=== PATIENT | female | born 1945 | race Caucasian/White ===

== ENCOUNTER → 2020-03-23 14:11 | Outpatient (BNVA) | payer MEDICARE, SELFPAY | PROVIDERS: PCP Internal Medicine; Referring Provider Internal Medicine; Visit Provider Advanced Practice Midwife | DX: R10.2 Pelvic and perineal pain (principal) | CPT/HCPCS: 99212; Q3014 ==

== ENCOUNTER 2020-04-23 08:59 | Emergency (ER) | payer MEDICARE, SELFPAY ==
[2020-04-23 09:22] VITALS: BP 134/72; PULSE 73; RESP 16; TEMP 37; O2SAT 98; BMI 33.0
--- NOTE | 2020-04-23 09:30 | US_ITS ---
EXAMINATION: US VENOUS ULTRASOUND WITH DOPPLER LOWER EXTREMITY, LEFT CLINICAL INFORMATION: Left calf pain COMPARISON: None TECHNIQUE: Ultrasound of the deep veins is performed from the hip to the calf with compression sonography and color and pulse Doppler assessment. Spectral analysis with color-flow imaging is performed. FINDINGS: There is normal venous compression and respiratory variation and augmented flow. The visualized common femoral vein, superficial femoral vein, profunda femoral vein, popliteal vein, and the trifurcation region shows no evidence of deep venous thrombosis. There is no significant popliteal fossa cyst. No popliteal artery aneurysm. If the patient's symptoms persist, followup ultrasound in 5 days 7 days might be of value to exclude proximal propagation from a non-visualized calf vein. US/US venous duplex LE LT IMPRESSION: No acute DVT demonstrated in the left lower extremity.
--- NOTE | 2020-04-23 09:30 | ED_ITS ---
HPI - Extremity Problem General Chief complaint: Extremity Problem Stated complaint: ?blood clot Time Seen by Provider: 04/23/20 09:23 Source: patient Mode of arrival: ambulatory History of Present Illness HPI Narrative: 74-year-old female with a past medical history of hyperbilirubinemia, hypothyroid, hypertension, bipolar, DM, GERD, presenting to ED complaining of left thigh pain since yesterday which progressed to left calf pain today. Reports was sent in by PCP for ultrasound. Denies injury/falls, numbness/tingling, weakness, discoloration, CP/SOB, cough. Denies history of clots, recent travel, LE edema Related Data Home Medications Medication Instructions Recorded Confirmed amlodipine 5 mg tablet 5 mg PO DAILY 03/23/20 atorvastatin 40 mg tablet mg PO 03/23/20 cholecalciferol (vitamin D3) 25 25 mcg PO DAILY 03/23/20 mcg (1,000 unit) tablet divalproex 500 mg tablet,extended mg PO 03/23/20 release 24 hr ferrous fumarate 324 mg (106 mg 324 mg PO DAILY 03/23/20 iron) tablet levothyroxine 100 mcg tablet 100 mcg PO DAILY 03/23/20 loratadine 10 mg tablet 10 mg PO DAILY 03/23/20 lorazepam 1 mg tablet 1 mg PO BEDTIME PRN 03/23/20 meclizine 25 mg tablet 25 mg PO DAILY 03/23/20 metformin 500 mg tablet,extended 500 mg PO BID 03/23/20 release 24 hr oxybutynin chloride 5 mg tablet 5 mg PO BID 03/23/20 pantoprazole 40 mg tablet,delayed 40 mg PO DAILY 03/23/20 release risperidone 1 mg tablet mg PO 03/23/20 atorvastatin 40 mg tablet 40 mg PO DAILY 04/21/20 Previous Rx's Medication Instructions Recorded ascorbic acid (vitamin C) 500 mg 500 mg PO DAILY #90 tab 03/30/20 tablet metoprolol succinate 25 mg 25 mg PO DAILY #90 tab 04/06/20 tablet,extended release 24 hr perphenazine 4 mg tablet See Rx Instructions PO .COMPLEX 30 04/20/20 Days #90 tab clotrimazole-betamethasone 1 1 applic TOPICAL BID 15 Days #15 g 04/21/20 %-0.05 % topical cream Allergies Allergy/AdvReac Type Severity Reaction Status Date / Time amoxicillin [Amoxicillin] Allergy Intermediate SWELLING, Unverified 03/03/20 15:29 rash meclizine [Meclizine] Allergy Intermediate INCREASES Unverified 03/03/20 15:29 DIZZINESS acyclovir Allergy Unknown Unknown Verified 03/23/20 14:20 codeine [CODEINE] Allergy Unknown RASH Unverified 03/03/20 15:29 dicyclomine Allergy Unknown Unknown Verified 03/23/20 14:20 lidocaine [LIDOCAINE] Allergy Unknown UNKNOWN Unverified 03/03/20 15:29 lithium [LITHIUM] Allergy Unknown NEPHROGENIC Unverified 03/03/20 15:29 DIABETES INSIPIDUS metronidazole [METRONIDAZOLE] Allergy Unknown FLU LIKE Unverified 03/03/20 15:29 SYMPTOMS simvastatin [SIMVASTATIN] Allergy Unknown MYALGIAS Unverified 03/03/20 15:29 Sulfa (Sulfonamide Allergy Unknown itching & Verified 01/22/20 00:00 Antibiotics) bruising Review of Systems 2 Review of Systems: Constitutional: No Weight loss, No Fever, No Chills Cardiovascular: No Chest Pain, No SOB, No Dyspnea on Exertion, No Edema, No Palpitations Respiratory: No Cough, No Sputum, No Wheezing, No Dyspnea Gastrointestinal: No Nausea, No Vomiting, No Diarrhea, No Constipation, No Abdominal pain Musculoskeletal: +L calf pain, No Myalgias, No Joint Swelling Skin: No Skin Lesions, No rash Neuro: No Weakness, No Numbness, No Paresthesias Yes all other systems are reviewed and are negative [facility] Past Medical History Attestation statement: The following information was validated with the patient. Source: old records reviewed and nursing notes reviewed Medical History (Updated 04/23/20 @ 10:31 by MICHELE Hedrick) High bilirubin History of hypothyroidism History of vitamin D deficiency HTN (hypertension) with goal to be determined Hx of bipolar disorder Hx of diabetes insipidus Hx of diabetes mellitus Hx of gastroesophageal reflux (GERD) Hx of hyperlipidemia Hx of strabismus Hypothyroidism Rash Surgical History Hx of cataract surgery Hx of dilation and curettage Family History Family History Father History of cerebral hemorrhage Mother History of cerebral hemorrhage Social History Social History Smoking Status: Former smoker Smoked in Last 30 Days: No Use of substances other than those prescribed or required for medical reasons: No Advance Directives: No Advance Directives Information Provided: No Physical Exam Vital Signs: Vital Signs: Last Vital Signs Temp 98.6 F 04/23/20 09:22 Pulse 73 04/23/20 09:22 Resp 16 04/23/20 09:22 BP 134/72 04/23/20 09:22 Pulse Ox 98 04/23/20 09:22 Body Mass Index 33.0 Const: General: cooperative and healthy appearing Orientation/consciousness: patient oriented x3 Limitations: no limitations HENMT: Head: Yes normal to inspection Ears: hearing grossly normal bilaterally General nose exam: Normal external nose present Face and sinus: Yes normal facial exam Eyes: General: appearance normal, both eyes and all related structures EOM: EOMs intact bilaterally Neck: Neck: Yes normal visual inspection Resp: Effort & Inspection: normal respiratory effort Auscultation: clear to auscultation bilaterally Cardio: Rate: regular rate Heart sounds: S1 normal heart sound present and S2 normal heart sound present GI: Inspection: Yes normal to inspection Palpation (GI): Soft to palpation, nontender, no guarding and not rigid Skin: Rashes: no rashes Wounds: no wounds Neuro: General: patient oriented x3 Gait exam (Neuro): Normal gait present Extrem: Other: + left calf pain. No LE edema. No discoloration or streaking. NV intact General: Yes normal to inspection Course Course Course Narrative: -venous duplex without acute DVT Imaging results discussed with patient including close follow-up with PCP and worrisome signs and symptoms. Patient verbalized understanding feel safe for discharge MDM - Extremity (Nontraumatic) MDM Narrative Medical decision making narrative: 74-year-old female with a past medical history of hyperbilirubinemia, hypothyroid, hypertension, bipolar, DM, GERD, presenting to ED complaining of left thigh pain since yesterday which progressed to left calf pain today. On exam VSS, NAD, check pain elicited on exam. Lungs CTA. Concern for possible DVT vs MSK pain. Low concern for PE. No appreciable infection Plan: Venous duplex ultrasound Discharge Plan Discharge Clinical Impression: Pain of left calf Patient Disposition: Home, Self-Care Instructions: Leg Pain (ED) Additional Instructions: Your ultrasound was negative for DVT Call your doctor, and follow-up with them Take Tylenol /Motrin at home for your pain You may ice and elevate her leg If symptoms persist or worsen, you develop numbness, tingling, discoloration of her leg return to the ED Prescriptions: No Action ascorbic acid (vitamin C) [Vitamin C] 500 mg tablet 500 mg PO DAILY Qty: 90 RF: 3 metoprolol succinate 25 mg tablet extended release 24 hr 25 mg PO DAILY Qty: 90 RF: 1 perphenazine 4 mg tablet See Rx Instructions PO .COMPLEX 30 Days Qty: 90 RF: 0 clotrimazole-betamethasone 1-0.05 % cream 1 applic topical BID 15 Days Qty: 15 RF: 0 Referrals: Brown Dickson MD [Primary Care Provider] - 2 days
== END 2020-04-23 11:03 | disposition home or self-care (01) ==
PROVIDERS: Emergency Provider Emergency Medicine; PCP Internal Medicine
DX: M79.605 Pain in left leg (principal); R60.0 Localized edema; Z79.899 Other long term (current) drug therapy
CPT/HCPCS: 93971; 99284

== ENCOUNTER 2020-06-07 09:53 | Outpatient (REF) | payer MEDICARE, SELFPAY ==
[2020-06-07 11:09] LABS: Estimated Average Glucose 146 mg/dL; Hemoglobin A1c % 6.7 %
[2020-06-07 11:11] LABS: Alanine Aminotransferase 9 U/L (0-31); Albumin Level 3.9 g/dL (3.5-5.0); Alkaline Phosphatase 73 U/L (39-117); Anion Gap 12 (12-20); Aspartate Amino Transferase 15 U/L (5-31); Bilirubin Direct 0.2 mg/dL (0.0-0.5); Bilirubin Total 0.5 mg/dL (0.0-1.0); Blood Urea Nitrogen 14 mg/dL (9-16); Calcium 9.2 mg/dL (8.4-10.2); Carbon Dioxide 28 mmol/L (22-29); Chloride 104 mmol/L (96-108); Estimated Glomerular Filt Rate 59; Glucose Fasting 130 mg/dL (60-99); Potassium 4.3 mmol/l (3.3-5.1); Sodium 140 mmol/L (135-145); Total Protein 6.7 g/dL (6.5-8.0)
[2020-06-07 11:34] LABS: TSH reflex Free T4 2.21 mIU/mL (0.32-4.0)
== END 2020-06-07 09:54 | disposition home or self-care (01) ==
LOC: HO.LAB 09:53
PROVIDERS: PCP Internal Medicine; Visit Provider Nurse Practitioner Family
DX: E03.9 Hypothyroidism, unspecified (principal); R17 Unspecified jaundice
CPT/HCPCS: 80048; 80076; 83036; 84443

== ENCOUNTER 2020-08-23 15:06 | Inpatient (IN) | payer MEDICARE, SELFPAY ==
--- NOTE | ~2020-08-23 | CT_ITS ---
EXAMINATION: CT ANGIOGRAM OF THE CHEST WITH AND WITHOUT CONTRAST (CT PULMONARY ANGIOGRAM FOR PE) CLINICAL INFORMATION: Reason for Exam pt c cough c hypoxia ? pna vs pe COMPARISON: CTA chest 04/24/2018, chest radiographs 08/23/2020. TECHNIQUE: Prior to contrast administration, noncontrast localization images were obtained. Subsequently, multidetector volumetric imaging was performed from the thoracic inlet to below the diaphragms following the administration of 71 mL Omnipaque 350 intravenous contrast. Sagittal, coronal, and MIP oblique sagittal reformatted images were obtained on the CT workstation, uploaded to PACS, and reviewed. This CT examination was performed using dose optimization techniques as appropriate, variously including the following: *Automated exposure control *Adjustment of mA and/or kV according to patient size (this includes techniques or standardized protocols for targeted exams where dose is matched to indication/reason for exam; i.e. extremities or head) *Use of iterative reconstruction technique Total exam dose-length product 439 mGy-cm FINDINGS: QUALITY OF STUDY/CONTRAST BOLUS: Satisfactory. PULMONARY ARTERIES: There is some respiratory motion artifact. No central or segmental pulmonary emboli. THORACIC AORTA: No aneurysm or dissection. LUNG: There is respiratory motion artifact. There is bilateral dependent atelectasis. The central airways are clear and there is no endobronchial lesion or bronchiectasis. No airspace consolidation or patchy groundglass opacity. Pleural-based nodule superior segment left lower lobe approximately 1.2 x 1.1 x 1.6 cm in length has some associated central coarse calcification and is without significant change in size since 2018 consistent with a benign nodule. Remeasurement prior CT 2018 is 1.2 x 1.0 x 1.7 cm. PLEURA: No pleural effusion. No pneumothorax. MEDIASTINUM: Heart of limits of normal size. Trace pericardial effusion, 5 mm posteriorly. No evidence of septal bowing or right heart strain. CHEST WALL/AXILLA: No axillary or internal mammary lymphadenopathy. OSSEOUS STRUCTURES: No acute or suspicious osseous abnormality. UPPER ABDOMEN: Unremarkable. No reflux of contrast into the hepatic veins to suggest elevated right heart pressures. Parapelvic cyst again suggested interpolar left kidney similar to 2018. CT/CT angio chest PE protocol IMPRESSION: 1. No pulmonary embolism. No thoracic aortic enlargement or dissection. 2. Pleural-based nodule posterior left lower lobe 1.2 x 1.1 x 1.6 cm with some central coarse calcification. No significant change in size since CT 2018, consistent with benign nodule. VTE: negative
--- NOTE | ~2020-08-23 | XR_ITS ---
EXAMINATION: XR CHEST CLINICAL INFORMATION: Chest pain. COMPARISON: 02/28/2019 chest radiograph. TECHNIQUE: Frontal view of the chest was obtained. FINDINGS: Mild linear markings are seen at the right lung base. The left lung is clear. The heart and mediastinal structures are unremarkable. XR/XR chest 1V IMPRESSION: Mild linear markings at the right lung base could represent mild atelectasis or scarring. Mild bronchiectasis cannot be excluded. A definitive infiltrate is not seen.
[2020-08-23 15:25] VITALS: BP 117/54; BP 154/74; PULSE 71; PULSE 77; RESP 20; TEMP 36.8; O2SAT 92; O2SAT 97; BMI 32.4
--- NOTE | 2020-08-23 15:44 | ECG_ITS ---
Test Reason : CHEST PAIN Blood Pressure : / mmHG Vent. Rate : 073 BPM Atrial Rate : 073 BPM P-R Int : 166 ms QRS Dur : 076 ms QT Int : 380 ms P-R-T Axes : 046 014 014 degrees QTc Int : 418 ms Normal sinus rhythm Normal ECG When compared with ECG of 28-FEB-2019 05:47, No significant change was found Referred By: Generic ED Physician Electronically Signed By:Hadley Aguilera
[2020-08-23 16:00] LABS: Basophils Percent Auto 0.1 % (0-2); Eosinophils Percent Auto 0.1 % (0-4); Hematocrit 36.3 % (37-47); Imm Gran Abs Auto 0.14 X10*3/uL (0.00-0.03); Lymphocytes Absolute Auto 1.9 X10*3/uL (1.2-4.9); Lymphocytes Percent Auto 13.6 % (20-40); MANUAL DIFF FLAG SCAN; Mean Corpuscular HGB Conc 33.1 g/dl (31.0-35.0); Mean Corpuscular Hemoglobin 33.2 pg (27.0-33.0); Mean Corpuscular Volume 100.6 fL (80-98); Mean Platelet Volume 8.9 fL (9.4-12.3); Monocytes Absolute Auto 1.8 X10*3/uL (0.1-1.2); Monocytes Percent Auto 12.8 % (2-11); Neutrophils Absolute Auto 9.9 X10*3/uL (2.0-8.3); Neutrophils Percent Auto 72.4 % (45-73); Platelet Count 189 X10*3/uL (160-400); Red Blood Count 3.61 X10*6/uL (4.20-5.50); SCAN SMEAR FLAG 1; White Blood Count 13.7 X10*3/uL (4.8-10.8)
[2020-08-23 16:21] LABS: SLIDE REVIEW VERIFIED
[2020-08-23 16:27] LABS: Anion Gap 14 (12-20); Blood Urea Nitrogen 10 mg/dL (9-16); Calcium 8.6 mg/dL (8.4-10.2); Carbon Dioxide 24 mmol/L (22-29); Chloride 108 mmol/L (96-108); Estimated Glomerular Filt Rate > 60; Glucose Random 127 mg/dL (60-115); Potassium 3.6 mmol/L (3.3-5.1); Sodium 142 mmol/L (135-145)
[2020-08-23 16:32] LABS: Troponin-I High Sensitivity < 3.5 ng/L (<3.5-17.0)
--- NOTE | 2020-08-23 16:35 | ED.CHESTPAIN ---
HPI - Chest Pain General Chief Complaint: Chest Pain <Frannie Flowers MD - Last Filed: 08/23/20 19:37> Stated Complaint: CP RESOLVED, UPPER BACK PAIN <Frannie Flowers MD - Last Filed: 08/23/20 19:37> Time Seen by Provider: 08/23/20 16:35 <Frannie Flowers MD - Last Filed: 08/23/20 19:37> Source: patient and EMS <Frannie Flowers MD - Last Filed: 08/23/20 19:37> Mode of arrival: EMS <Frannie Flowers MD - Last Filed: 08/23/20 19:37> Limitations: no limitations <Frannie Flowers MD - Last Filed: 08/23/20 19:37> History of Present Illness HPI narrative: 75-year-old female brought in by ambulance for chest pain and upper neck pain, patient lives in apartment with her , started to have chest pain and upper neck pain and bilateral shoulder pain (not only left shoulder pain as stated by nursing triage), patient took Tylenol last night, has been put a fan in front of her bed and patient felt better with care and family coming to her (patient stated was out in her room last night and heat was high and patient has no control of the heat temperature at the apartment), patient now declined any symptoms feels normal, no chest pain, no shortness of breath, no trauma to the neck. Patient stated about 3 years ago had cardiac catheterization and was unremarkable patient needed no intervention then (official report is not available). <Frannie Flowers MD - Last Filed: 08/23/20 19:37> Related Data Home Medications: Home Medications Medication Instructions Recorded Confirmed atorvastatin 40 mg tablet 40 mg PO BEDTIME tab 03/23/20 08/23/20 cholecalciferol (vitamin D3) 25 25 mcg PO DAILY 03/23/20 08/23/20 mcg (1,000 unit) tablet levothyroxine 100 mcg tablet 100 mcg PO DAILY 03/23/20 08/23/20 lancing device with lancets kit #1 ea 05/11/20 08/02/20 divalproex 1,000 mg PO BEDTIME 08/23/20 08/23/20 divalproex 500 mg PO DAILY 08/23/20 08/23/20 lisinopril 2.5 mg PO DAILY 08/23/20 08/23/20 Previous Rx's Medication Instructions Recorded ascorbic acid (vitamin C) 500 mg 500 mg PO DAILY #90 tab 03/30/20 tablet metoprolol succinate 25 mg 25 mg PO DAILY #90 tab 04/06/20 tablet,extended release 24 hr pantoprazole 40 mg tablet,delayed 40 mg PO DAILY 30 Days #30 tab 04/25/20 release lancets 33 gauge #100 ea 05/11/20 oxybutynin chloride 5 mg tablet 5 mg PO BID #180 tab 06/28/20 ferrous fumarate 324 mg (106 mg 324 mg PO DAILY #100 tab 07/04/20 iron) tablet nystatin 100,000 unit/gram topical 1 appl TOPICAL BID 30 Days #15 g 07/22/20 powder risperidone 1 mg tablet 1 mg PO BID #60 tab 08/04/20 perphenazine 4 mg tablet 4 mg PO BID #90 tab 08/18/20 amlodipine 5 mg tablet 5 mg PO DAILY #90 tab 08/20/20 metformin 500 mg tablet,extended 500 mg PO BID #180 tab 08/23/20 release 24 hr <Frannie Flowers MD - Last Filed: 08/23/20 19:37> Allergies/Adverse Reactions: Allergies Allergy/AdvReac Type Severity Reaction Status Date / Time amoxicillin [Amoxicillin] Allergy Intermediate SWELLING, Verified 08/23/20 15:25 rash Sulfa (Sulfonamide Allergy Intermediate itching & Verified 08/23/20 15:25 Antibiotics) bruising codeine [CODEINE] Allergy Unknown RASH Verified 08/23/20 15:25 dicyclomine Allergy Unknown Unknown Verified 08/23/20 15:25 lidocaine [LIDOCAINE] Allergy Unknown UNKNOWN Verified 08/23/20 15:25 lithium [LITHIUM] AdvReac Severe NEPHROGENIC Verified 08/23/20 15:25 DIABETES INSIPIDUS meclizine [Meclizine] AdvReac Intermediate INCREASES Verified 08/23/20 15:25 DIZZINESS simvastatin [SIMVASTATIN] AdvReac Intermediate MYALGIAS Verified 08/23/20 15:25 metronidazole [METRONIDAZOLE] AdvReac Mild FLU LIKE Verified 08/23/20 15:25 SYMPTOMS acyclovir AdvReac Unknown Unknown Verified 08/23/20 15:25 <Frannie Flowers MD - Last Filed: 08/23/20 19:37> Review of Systems Review of Systems: All other systems are reviewed and are negative Constitutional: Reports as per HPI and Reports no additional constitutional complaints Eyes: Reports as per HPI and Reports no additional eye complaints Reports system reviewed and no additional complaints, except as documented Cardiovascular: Reports as per HPI and Reports no additional cardiovascular complaints Respiratory: Reports as per HPI and Reports no additional respiratory complaints Gastrointestinal: Reports as per HPI and Reports no additional gastrointestinal complaints Genitourinary: Reports no additional female genitourinary complaints Musculoskeletal: Reports no additional musculoskeletal complaints Skin/Breast: Reports system reviewed and no additional complaints, except as docu Psychiatric: Reports no additional psychiatric complaints Endocrine: Reports no additional endocrine complaints Hematologic/Lymphatic: Reports no additional hematologic/lymphatic complaints Allergic/Immunologic: Reports no additional allergic/immunologic complaints Reports system reviewed and no additional complaints, except as documented and Reports Abnormal speech present <Frannie Flowers MD - Last Filed: 08/23/20 19:37> [facility] Past Medical History Medical History: Medical History Acquired hypothyroidism Allergic rhinitis Anemia Benign essential hypertension Bipolar disorder Diabetes mellitus GERD without esophagitis High bilirubin History of vitamin D deficiency Hx of diabetes insipidus Hx of strabismus Hypertension Intertrigo Obesity (BMI 30-39.9) Pain of left lower extremity Pure hypercholesterolemia <Frannie Flowers MD - Last Filed: 08/23/20 19:37> Surgical History: Surgical History History of eye surgery History of left breast biopsy Hx of cataract surgery (~07/2017) Hx of dilation and curettage <Frannie Flowers MD - Last Filed: 08/23/20 19:37> Family History Family History: Family History Father History of cerebral hemorrhage Mother History of cerebral hemorrhage <Frannie Flowers MD - Last Filed: 08/23/20 19:37> Social History Social History: Social History Alcohol intake: never Smoking Status: Former smoker Use of substances other than those prescribed or required for medical reasons: No Advance Directives: Yes Advance Directives on File: Yes Advance Directives Date on File: 08/24/20 <Frannie Flowers MD - Last Filed: 08/23/20 19:37> Physical Exam Vital Signs: Vital Signs: Last Vital Signs Temp 97.5 F 08/24/20 16:24 Pulse 59 08/24/20 16:24 Resp 19 08/24/20 16:24 BP 77/43 L 08/24/20 16:24 Pulse Ox 95 08/24/20 16:24 Body Mass Index 32.4 Vital signs have been reviewed as appeared to be correct. Blood pressure normal. Heart rate normal. Respiration rate normal. Temperature normal. Oxygen saturation normal. <Frannie Flowers MD - Last Filed: 08/23/20 19:37> Vital Signs: Last Vital Signs Temp 97.5 F 08/24/20 16:24 Pulse 59 08/24/20 16:24 Resp 19 08/24/20 16:24 BP 77/43 L 08/24/20 16:24 Pulse Ox 95 08/24/20 16:24 Body Mass Index 32.4 <Mk Cordero MD - Last Filed: 08/24/20 09:28> Vital Signs: Last Vital Signs Temp 97.5 F 08/24/20 16:24 Pulse 59 08/24/20 16:24 Resp 19 08/24/20 16:24 BP 77/43 L 08/24/20 16:24 Pulse Ox 95 08/24/20 16:24 Body Mass Index 32.4 <MICHELE Tong - Last Filed: 08/24/20 09:36> Vital Signs: Last Vital Signs Temp 97.5 F 08/24/20 16:24 Pulse 59 08/24/20 16:24 Resp 19 08/24/20 16:24 BP 77/43 L 08/24/20 16:24 Pulse Ox 95 08/24/20 16:24 Body Mass Index 32.4 <Patrick Barnhart MD - Last Filed: 08/24/20 16:42> Appearance: Alert. Oriented X3. No acute distress. Head: Normal external exam. Normocephalic. Atraumatic. No Love signs noted. No raccoon eyes noted Eyes: PERRLA. EOMI. Conjunctiva and sclera normal. Eyelids normal. ENT: TM's Normal. Pharynx normal. Uvula midline. Moist mucous membranes. No trismus noted. No drooling noted. No muffled voice noted. Neck: Normal inspection. Neck supple. FROM. No adenopathy. Thyroid Normal. No meningeal signs. No neck mass noted. CVS: Normal heart rate and rhythm. Heart sound normal. No murmurs noted. Pulses normal throughout. Respiratory: No respiratory distress. Painless inspiration. Breath sounds normal. No wheezes/rales/rhonchi noted. Chest nontender. No accessory muscle usage noted or decreased air movement noted. Abdomen: Soft and nontender. Bowel sounds normal in all 4 quadrants. No distention noted. No organomegaly noted. No visible injury noted. Back: No CVA tenderness. Full range of motion noted. Skin: Skin warm and dry. Normal skin color. Normal skin turgor. No rashes/lesions/lacerations noted. Extremities: No lower extremity edema. Extremities exhibit normal range of motion. Extremities nontender. Neuro: Oriented X 3. No motor deficit. No sensory deficit. Reflexes normal. <Frannie Flowers MD - Last Filed: 08/23/20 19:37> Course Course Course Narrative: Assessment and plan. 75-year-old female came in from home for chest pain that started since last night more than 12 hours ago by now, now pain is resolved, patient had previous cardiac catheterization 3 years ago was unremarkable according to patient history, patient also while in the emergency department had unremarkable EKG, and negative high sensitive troponin. Workup is significant for leukocytosis with unremarkable chest x-ray, patient still unable to give a UA will check her urine, patient otherwise has stable vital signs. Will discharge the patient after checking UA. <Frannie Flowers MD - Last Filed: 08/23/20 19:37> Patient now with low blood pressure no obvious reason, will give fluid bolus. In terms of hypoxia she had CXR that showed atelectasis, and CT chest negative for PE, old pleural nodule. At this moment Blood pressure is low Patients rectal temp is 99.6 will culture and fluid bolus and hold off on abx for now. At this time sepsis is being entertained although patient appears well, awake and alert, lungs with basilar rales, CV RRR, abd nontender, neuro at baseline <Patrick Barnhart MD - Last Filed: 08/24/20 16:42> Reevaluation(s) Reevaluation #1: Daughter is requesting placement as family cannot provide care for the patient at home. <Frannie Flowers MD - Last Filed: 08/23/20 19:37> Time: 19:37 <Frannie Flowers MD - Last Filed: 08/23/20 19:37> MDM - Chest Pain Medical Records Data Attestation: I reviewed the patient's medical records. <Frannie Flowers MD - Last Filed: 08/23/20 19:37> Lab Data Result diagrams: : 08/24/20 11:06 08/24/20 11:06 <Frannie Flowers MD - Last Filed: 08/23/20 19:37> Labs: Lab Results 08/23/20 08/23/20 08/23/20 Range/Units 15:53 15:53 15:53 WBC 13.7 H (4.8-10.8) X10*3/uL RBC 3.61 L (4.20-5.50) X10*6/uL Hgb 12.0 (12.0-16.0) g/dl Hct 36.3 L (37-47) % MCV 100.6 H (80-98) fL MCH 33.2 H (27.0-33.0) pg MCHC 33.1 (31.0-35.0) g/dl RDW 13.0 (11.0-16.0) % Plt Count 189 (160-400) X10*3/uL MPV 8.9 L (9.4-12.3) fL Immature Gran % (Auto) 1.0 H (0.0-0.4) % Neut % (Auto) 72.4 (45-73) % Lymph % (Auto) 13.6 L (20-40) % [place] % (Auto) 12.8 H (2-11) % Eos % (Auto) 0.1 (0-4) % Baso % (Auto) 0.1 (0-2) % Lymph # (Auto) 1.9 (1.2-4.9) X10*3/uL [place] # (Auto) 1.8 H (0.1-1.2) X10*3/uL Eos # (Auto) 0.0 (0.0-0.4) X10*3/uL Baso # (Auto) 0.0 (0.0-0.2) X10*3/uL Abs Immat Gran (auto) 0.14 H (0.00-0.03) X10*3/uL Absolute Neuts (auto) 9.9 H (2.0-8.3) X10*3/uL Absolute Nucleated RBC 0.000 (0.0-0.012) X10*3/uL Nucleated RBC % (auto) 0.0 (0.0-0.2) /100WBC Smear Tech's Comments VERIFIED Hold Blue Top SEE NOTE Sodium 142 (135-145) mmol/L Potassium 3.6 (3.3-5.1) mmol/L Chloride 108 (96-108) mmol/L Carbon Dioxide 24 (22-29) mmol/L Anion Gap 14 (12-20) BUN 10 (9-16) mg/dL Creatinine 0.77 (0.5-1.4) mg/dL Estim Creat Clear Calc 74.0 Estimated GFR > 60 POC Glucose (60-115) mg/dL Random Glucose 127 H (60-115) mg/dL Calcium 8.6 D (8.4-10.2) mg/dL Troponin I High Sens (<3.5-17.0) ng/L B-Natriuretic Peptide (<100) pg/mL Urine Color Urine Appearance Urine pH (5.0-8.0) Ur Specific [place] (1.005-1.025) Urine Protein (NEG-TRACE) MG/DL Urine Glucose (UA) (NEG) MG/DL Urine Ketones (NEG) MG/DL Urine Blood (NEG) Urine Nitrite (NEG) Ur Leukocyte Esterase (NEG) Urine RBC (0) /HPF Urine WBC (0-4) /HPF Ur Squamous Epith Cells /LPF Urine Bacteria /LPF Coronavirus (PCR) (Negative) COVID-19 (ANGEL) (Negative) COVID-19 Clin Com Influenza Type A (PCR) (Negative) Influenza Type B (PCR) (Negative) RSV RNA Qual (PCR) (Negative) 08/23/20 08/23/20 08/24/20 Range/Units 15:53 19:43 00:10 WBC (4.8-10.8) X10*3/uL RBC (4.20-5.50) X10*6/uL Hgb (12.0-16.0) g/dl Hct (37-47) % MCV (80-98) fL MCH (27.0-33.0) pg MCHC (31.0-35.0) g/dl RDW (11.0-16.0) % Plt Count (160-400) X10*3/uL MPV (9.4-12.3) fL Immature Gran % (Auto) (0.0-0.4) % Neut % (Auto) (45-73) % Lymph % (Auto) (20-40) % [place] % (Auto) (2-11) % Eos % (Auto) (0-4) % Baso % (Auto) (0-2) % Lymph # (Auto) (1.2-4.9) X10*3/uL [place] # (Auto) (0.1-1.2) X10*3/uL Eos # (Auto) (0.0-0.4) X10*3/uL Baso # (Auto) (0.0-0.2) X10*3/uL Abs Immat Gran (auto) (0.00-0.03) X10*3/uL Absolute Neuts (auto) (2.0-8.3) X10*3/uL Absolute Nucleated RBC (0.0-0.012) X10*3/uL Nucleated RBC % (auto) (0.0-0.2) /100WBC Smear Tech's Comments Hold Blue Top Sodium (135-145) mmol/L Potassium (3.3-5.1) mmol/L Chloride (96-108) mmol/L Carbon Dioxide (22-29) mmol/L Anion Gap (12-20) BUN (9-16) mg/dL Creatinine (0.5-1.4) mg/dL Estim Creat Clear Calc Estimated GFR POC Glucose 122 H (60-115) mg/dL Random Glucose (60-115) mg/dL Calcium (8.4-10.2) mg/dL Troponin I High Sens < 3.5 (<3.5-17.0) ng/L B-Natriuretic Peptide (<100) pg/mL Urine Color YELLOW Urine Appearance CLEAR Urine pH 7.0 (5.0-8.0) Ur Specific [place] 1.010 (1.005-1.025) Urine Protein NEG (NEG-TRACE) MG/DL Urine Glucose (UA) NEG (NEG) MG/DL Urine Ketones NEG (NEG) MG/DL Urine Blood TRACE (NEG) Urine Nitrite NEG (NEG) Ur Leukocyte Esterase NEG (NEG) Urine RBC 0-2 (0) /HPF Urine WBC 0 (0-4) /HPF Ur Squamous Epith Cells 1+ /LPF Urine Bacteria TRACE /LPF Coronavirus (PCR) (Negative) COVID-19 (ANGEL) (Negative) COVID-19 Clin Com Influenza Type A (PCR) (Negative) Influenza Type B (PCR) (Negative) RSV RNA Qual (PCR) (Negative) 08/24/20 08/24/20 08/24/20 Range/Units 00:17 11:06 11:06 WBC 11.3 H (4.8-10.8) X10*3/uL RBC 3.74 L (4.20-5.50) X10*6/uL Hgb 12.3 (12.0-16.0) g/dl Hct 38.7 (37-47) % MCV 103.5 H (80-98) fL MCH 32.9 (27.0-33.0) pg MCHC 31.8 (31.0-35.0) g/dl RDW 13.2 (11.0-16.0) % Plt Count 180 (160-400) X10*3/uL MPV 8.7 L (9.4-12.3) fL Immature Gran % (Auto) 1.1 H (0.0-0.4) % Neut % (Auto) 71.1 (45-73) % Lymph % (Auto) 18.2 L (20-40) % [place] % (Auto) 9.0 (2-11) % Eos % (Auto) 0.4 (0-4) % Baso % (Auto) 0.2 (0-2) % Lymph # (Auto) 2.1 (1.2-4.9) X10*3/uL [place] # (Auto) 1.0 (0.1-1.2) X10*3/uL Eos # (Auto) 0.0 (0.0-0.4) X10*3/uL Baso # (Auto) 0.0 (0.0-0.2) X10*3/uL Abs Immat Gran (auto) 0.12 H (0.00-0.03) X10*3/uL Absolute Neuts (auto) 8.1 (2.0-8.3) X10*3/uL Absolute Nucleated RBC 0.000 (0.0-0.012) X10*3/uL Nucleated RBC % (auto) 0.0 (0.0-0.2) /100WBC Smear Tech's Comments Hold Blue Top Sodium 139 (135-145) mmol/L Potassium 3.9 (3.3-5.1) mmol/L Chloride 104 (96-108) mmol/L Carbon Dioxide 27 (22-29) mmol/L Anion Gap 12 (12-20) BUN 11 (9-16) mg/dL Creatinine 0.81 (0.5-1.4) mg/dL Estim Creat Clear Calc 70.3 Estimated GFR > 60 POC Glucose (60-115) mg/dL Random Glucose 135 H (60-115) mg/dL Calcium 8.6 (8.4-10.2) mg/dL Troponin I High Sens (<3.5-17.0) ng/L B-Natriuretic Peptide (<100) pg/mL Urine Color Urine Appearance Urine pH (5.0-8.0) Ur Specific [place] (1.005-1.025) Urine Protein (NEG-TRACE) MG/DL Urine Glucose (UA) (NEG) MG/DL Urine Ketones (NEG) MG/DL Urine Blood (NEG) Urine Nitrite (NEG) Ur Leukocyte Esterase (NEG) Urine RBC (0) /HPF Urine WBC (0-4) /HPF Ur Squamous Epith Cells /LPF Urine Bacteria /LPF Coronavirus (PCR) (Negative) COVID-19 (ANGEL) Negative (Negative) COVID-19 Clin Com See Note Influenza Type A (PCR) (Negative) Influenza Type B (PCR) (Negative) RSV RNA Qual (PCR) (Negative) 08/24/20 08/24/20 Range/Units 12:34 15:25 WBC (4.8-10.8) X10*3/uL RBC (4.20-5.50) X10*6/uL Hgb (12.0-16.0) g/dl Hct (37-47) % MCV (80-98) fL MCH (27.0-33.0) pg MCHC (31.0-35.0) g/dl RDW (11.0-16.0) % Plt Count (160-400) X10*3/uL MPV (9.4-12.3) fL Immature Gran % (Auto) (0.0-0.4) % Neut % (Auto) (45-73) % Lymph % (Auto) (20-40) % [place] % (Auto) (2-11) % Eos % (Auto) (0-4) % Baso % (Auto) (0-2) % Lymph # (Auto) (1.2-4.9) X10*3/uL [place] # (Auto) (0.1-1.2) X10*3/uL Eos # (Auto) (0.0-0.4) X10*3/uL Baso # (Auto) (0.0-0.2) X10*3/uL Abs Immat Gran (auto) (0.00-0.03) X10*3/uL Absolute Neuts (auto) (2.0-8.3) X10*3/uL Absolute Nucleated RBC (0.0-0.012) X10*3/uL Nucleated RBC % (auto) (0.0-0.2) /100WBC Smear Tech's Comments Hold Blue Top Sodium (135-145) mmol/L Potassium (3.3-5.1) mmol/L Chloride (96-108) mmol/L Carbon Dioxide (22-29) mmol/L Anion Gap (12-20) BUN (9-16) mg/dL Creatinine (0.5-1.4) mg/dL Estim Creat Clear Calc Estimated GFR POC Glucose (60-115) mg/dL Random Glucose (60-115) mg/dL Calcium (8.4-10.2) mg/dL Troponin I High Sens < 3.5 (<3.5-17.0) ng/L B-Natriuretic Peptide 71 (<100) pg/mL Urine Color Urine Appearance Urine pH (5.0-8.0) Ur Specific [place] (1.005-1.025) Urine Protein (NEG-TRACE) MG/DL Urine Glucose (UA) (NEG) MG/DL Urine Ketones (NEG) MG/DL Urine Blood (NEG) Urine Nitrite (NEG) Ur Leukocyte Esterase (NEG) Urine RBC (0) /HPF Urine WBC (0-4) /HPF Ur Squamous Epith Cells /LPF Urine Bacteria /LPF Coronavirus (PCR) NEGATIVE (Negative) COVID-19 (ANGEL) (Negative) COVID-19 Clin Com Influenza Type A (PCR) NEGATIVE (Negative) Influenza Type B (PCR) NEGATIVE (Negative) RSV RNA Qual (PCR) NEGATIVE (Negative) <Frannie Flowers MD - Last Filed: 08/23/20 19:37> Lab Results 08/23/20 08/23/20 08/23/20 Range/Units 15:53 15:53 15:53 WBC 13.7 H (4.8-10.8) X10*3/uL RBC 3.61 L (4.20-5.50) X10*6/uL Hgb 12.0 (12.0-16.0) g/dl Hct 36.3 L (37-47) % MCV 100.6 H (80-98) fL MCH 33.2 H (27.0-33.0) pg MCHC 33.1 (31.0-35.0) g/dl RDW 13.0 (11.0-16.0) % Plt Count 189 (160-400) X10*3/uL MPV 8.9 L (9.4-12.3) fL Immature Gran % (Auto) 1.0 H (0.0-0.4) % Neut % (Auto) 72.4 (45-73) % Lymph % (Auto) 13.6 L (20-40) % [place] % (Auto) 12.8 H (2-11) % Eos % (Auto) 0.1 (0-4) % Baso % (Auto) 0.1 (0-2) % Lymph # (Auto) 1.9 (1.2-4.9) X10*3/uL [place] # (Auto) 1.8 H (0.1-1.2) X10*3/uL Eos # (Auto) 0.0 (0.0-0.4) X10*3/uL Baso # (Auto) 0.0 (0.0-0.2) X10*3/uL Abs Immat Gran (auto) 0.14 H (0.00-0.03) X10*3/uL Absolute Neuts (auto) 9.9 H (2.0-8.3) X10*3/uL Absolute Nucleated RBC 0.000 (0.0-0.012) X10*3/uL Nucleated RBC % (auto) 0.0 (0.0-0.2) /100WBC Smear Tech's Comments VERIFIED Hold Blue Top SEE NOTE Sodium 142 (135-145) mmol/L Potassium 3.6 (3.3-5.1) mmol/L Chloride 108 (96-108) mmol/L Carbon Dioxide 24 (22-29) mmol/L Anion Gap 14 (12-20) BUN 10 (9-16) mg/dL Creatinine 0.77 (0.5-1.4) mg/dL Estim Creat Clear Calc 74.0 Estimated GFR > 60 POC Glucose (60-115) mg/dL Random Glucose 127 H (60-115) mg/dL Calcium 8.6 D (8.4-10.2) mg/dL Troponin I High Sens (<3.5-17.0) ng/L B-Natriuretic Peptide (<100) pg/mL Urine Color Urine Appearance Urine pH (5.0-8.0) Ur Specific [place] (1.005-1.025) Urine Protein (NEG-TRACE) MG/DL Urine Glucose (UA) (NEG) MG/DL Urine Ketones (NEG) MG/DL Urine Blood (NEG) Urine Nitrite (NEG) Ur Leukocyte Esterase (NEG) Urine RBC (0) /HPF Urine WBC (0-4) /HPF Ur Squamous Epith Cells /LPF Urine Bacteria /LPF Coronavirus (PCR) (Negative) COVID-19 (ANGEL) (Negative) COVID-19 Clin Com Influenza Type A (PCR) (Negative) Influenza Type B (PCR) (Negative) RSV RNA Qual (PCR) (Negative) 08/23/20 08/23/20 08/24/20 Range/Units 15:53 19:43 00:10 WBC (4.8-10.8) X10*3/uL RBC (4.20-5.50) X10*6/uL Hgb (12.0-16.0) g/dl Hct (37-47) % MCV (80-98) fL MCH (27.0-33.0) pg MCHC (31.0-35.0) g/dl RDW (11.0-16.0) % Plt Count (160-400) X10*3/uL MPV (9.4-12.3) fL Immature Gran % (Auto) (0.0-0.4) % Neut % (Auto) (45-73) % Lymph % (Auto) (20-40) % [place] % (Auto) (2-11) % Eos % (Auto) (0-4) % Baso % (Auto) (0-2) % Lymph # (Auto) (1.2-4.9) X10*3/uL [place] # (Auto) (0.1-1.2) X10*3/uL Eos # (Auto) (0.0-0.4) X10*3/uL Baso # (Auto) (0.0-0.2) X10*3/uL Abs Immat Gran (auto) (0.00-0.03) X10*3/uL Absolute Neuts (auto) (2.0-8.3) X10*3/uL Absolute Nucleated RBC (0.0-0.012) X10*3/uL Nucleated RBC % (auto) (0.0-0.2) /100WBC Smear Tech's Comments Hold Blue Top Sodium (135-145) mmol/L Potassium (3.3-5.1) mmol/L Chloride (96-108) mmol/L Carbon Dioxide (22-29) mmol/L Anion Gap (12-20) BUN (9-16) mg/dL Creatinine (0.5-1.4) mg/dL Estim Creat Clear Calc Estimated GFR POC Glucose 122 H (60-115) mg/dL Random Glucose (60-115) mg/dL Calcium (8.4-10.2) mg/dL Troponin I High Sens < 3.5 (<3.5-17.0) ng/L B-Natriuretic Peptide (<100) pg/mL Urine Color YELLOW Urine Appearance CLEAR Urine pH 7.0 (5.0-8.0) Ur Specific [place] 1.010 (1.005-1.025) Urine Protein NEG (NEG-TRACE) MG/DL Urine Glucose (UA) NEG (NEG) MG/DL Urine Ketones NEG (NEG) MG/DL Urine Blood TRACE (NEG) Urine Nitrite NEG (NEG) Ur Leukocyte Esterase NEG (NEG) Urine RBC 0-2 (0) /HPF Urine WBC 0 (0-4) /HPF Ur Squamous Epith Cells 1+ /LPF Urine Bacteria TRACE /LPF Coronavirus (PCR) (Negative) COVID-19 (ANGEL) (Negative) COVID-19 Clin Com Influenza Type A (PCR) (Negative) Influenza Type B (PCR) (Negative) RSV RNA Qual (PCR) (Negative) 08/24/20 08/24/20 08/24/20 Range/Units 00:17 11:06 11:06 WBC 11.3 H (4.8-10.8) X10*3/uL RBC 3.74 L (4.20-5.50) X10*6/uL Hgb 12.3 (12.0-16.0) g/dl Hct 38.7 (37-47) % MCV 103.5 H (80-98) fL MCH 32.9 (27.0-33.0) pg MCHC 31.8 (31.0-35.0) g/dl RDW 13.2 (11.0-16.0) % Plt Count 180 (160-400) X10*3/uL MPV 8.7 L (9.4-12.3) fL Immature Gran % (Auto) 1.1 H (0.0-0.4) % Neut % (Auto) 71.1 (45-73) % Lymph % (Auto) 18.2 L (20-40) % [place] % (Auto) 9.0 (2-11) % Eos % (Auto) 0.4 (0-4) % Baso % (Auto) 0.2 (0-2) % Lymph # (Auto) 2.1 (1.2-4.9) X10*3/uL [place] # (Auto) 1.0 (0.1-1.2) X10*3/uL Eos # (Auto) 0.0 (0.0-0.4) X10*3/uL Baso # (Auto) 0.0 (0.0-0.2) X10*3/uL Abs Immat Gran (auto) 0.12 H (0.00-0.03) X10*3/uL Absolute Neuts (auto) 8.1 (2.0-8.3) X10*3/uL Absolute Nucleated RBC 0.000 (0.0-0.012) X10*3/uL Nucleated RBC % (auto) 0.0 (0.0-0.2) /100WBC Smear Tech's Comments Hold Blue Top Sodium 139 (135-145) mmol/L Potassium 3.9 (3.3-5.1) mmol/L Chloride 104 (96-108) mmol/L Carbon Dioxide 27 (22-29) mmol/L Anion Gap 12 (12-20) BUN 11 (9-16) mg/dL Creatinine 0.81 (0.5-1.4) mg/dL Estim Creat Clear Calc 70.3 Estimated GFR > 60 POC Glucose (60-115) mg/dL Random Glucose 135 H (60-115) mg/dL Calcium 8.6 (8.4-10.2) mg/dL Troponin I High Sens (<3.5-17.0) ng/L B-Natriuretic Peptide (<100) pg/mL Urine Color Urine Appearance Urine pH (5.0-8.0) Ur Specific [place] (1.005-1.025) Urine Protein (NEG-TRACE) MG/DL Urine Glucose (UA) (NEG) MG/DL Urine Ketones (NEG) MG/DL Urine Blood (NEG) Urine Nitrite (NEG) Ur Leukocyte Esterase (NEG) Urine RBC (0) /HPF Urine WBC (0-4) /HPF Ur Squamous Epith Cells /LPF Urine Bacteria /LPF Coronavirus (PCR) (Negative) COVID-19 (ANGEL) Negative (Negative) COVID-19 Clin Com See Note Influenza Type A (PCR) (Negative) Influenza Type B (PCR) (Negative) RSV RNA Qual (PCR) (Negative) 08/24/20 08/24/20 Range/Units 12:34 15:25 WBC (4.8-10.8) X10*3/uL RBC (4.20-5.50) X10*6/uL Hgb (12.0-16.0) g/dl Hct (37-47) % MCV (80-98) fL MCH (27.0-33.0) pg MCHC (31.0-35.0) g/dl RDW (11.0-16.0) % Plt Count (160-400) X10*3/uL MPV (9.4-12.3) fL Immature Gran % (Auto) (0.0-0.4) % Neut % (Auto) (45-73) % Lymph % (Auto) (20-40) % [place] % (Auto) (2-11) % Eos % (Auto) (0-4) % Baso % (Auto) (0-2) % Lymph # (Auto) (1.2-4.9) X10*3/uL [place] # (Auto) (0.1-1.2) X10*3/uL Eos # (Auto) (0.0-0.4) X10*3/uL Baso # (Auto) (0.0-0.2) X10*3/uL Abs Immat Gran (auto) (0.00-0.03) X10*3/uL Absolute Neuts (auto) (2.0-8.3) X10*3/uL Absolute Nucleated RBC (0.0-0.012) X10*3/uL Nucleated RBC % (auto) (0.0-0.2) /100WBC Smear Tech's Comments Hold Blue Top Sodium (135-145) mmol/L Potassium (3.3-5.1) mmol/L Chloride (96-108) mmol/L Carbon Dioxide (22-29) mmol/L Anion Gap (12-20) BUN (9-16) mg/dL Creatinine (0.5-1.4) mg/dL Estim Creat Clear Calc Estimated GFR POC Glucose (60-115) mg/dL Random Glucose (60-115) mg/dL Calcium (8.4-10.2) mg/dL Troponin I High Sens < 3.5 (<3.5-17.0) ng/L B-Natriuretic Peptide 71 (<100) pg/mL Urine Color Urine Appearance Urine pH (5.0-8.0) Ur Specific [place] (1.005-1.025) Urine Protein (NEG-TRACE) MG/DL Urine Glucose (UA) (NEG) MG/DL Urine Ketones (NEG) MG/DL Urine Blood (NEG) Urine Nitrite (NEG) Ur Leukocyte Esterase (NEG) Urine RBC (0) /HPF Urine WBC (0-4) /HPF Ur Squamous Epith Cells /LPF Urine Bacteria /LPF Coronavirus (PCR) NEGATIVE (Negative) COVID-19 (ANGEL) (Negative) COVID-19 Clin Com Influenza Type A (PCR) NEGATIVE (Negative) Influenza Type B (PCR) NEGATIVE (Negative) RSV RNA Qual (PCR) NEGATIVE (Negative) <Mk Cordero MD - Last Filed: 08/24/20 09:28> Lab Results 08/23/20 08/23/20 08/23/20 Range/Units 15:53 15:53 15:53 WBC 13.7 H (4.8-10.8) X10*3/uL RBC 3.61 L (4.20-5.50) X10*6/uL Hgb 12.0 (12.0-16.0) g/dl Hct 36.3 L (37-47) % MCV 100.6 H (80-98) fL MCH 33.2 H (27.0-33.0) pg MCHC 33.1 (31.0-35.0) g/dl RDW 13.0 (11.0-16.0) % Plt Count 189 (160-400) X10*3/uL MPV 8.9 L (9.4-12.3) fL Immature Gran % (Auto) 1.0 H (0.0-0.4) % Neut % (Auto) 72.4 (45-73) % Lymph % (Auto) 13.6 L (20-40) % [place] % (Auto) 12.8 H (2-11) % Eos % (Auto) 0.1 (0-4) % Baso % (Auto) 0.1 (0-2) % Lymph # (Auto) 1.9 (1.2-4.9) X10*3/uL [place] # (Auto) 1.8 H (0.1-1.2) X10*3/uL Eos # (Auto) 0.0 (0.0-0.4) X10*3/uL Baso # (Auto) 0.0 (0.0-0.2) X10*3/uL Abs Immat Gran (auto) 0.14 H (0.00-0.03) X10*3/uL Absolute Neuts (auto) 9.9 H (2.0-8.3) X10*3/uL Absolute Nucleated RBC 0.000 (0.0-0.012) X10*3/uL Nucleated RBC % (auto) 0.0 (0.0-0.2) /100WBC Smear Tech's Comments VERIFIED Hold Blue Top SEE NOTE Sodium 142 (135-145) mmol/L Potassium 3.6 (3.3-5.1) mmol/L Chloride 108 (96-108) mmol/L Carbon Dioxide 24 (22-29) mmol/L Anion Gap 14 (12-20) BUN 10 (9-16) mg/dL Creatinine 0.77 (0.5-1.4) mg/dL Estim Creat Clear Calc 74.0 Estimated GFR > 60 POC Glucose (60-115) mg/dL Random Glucose 127 H (60-115) mg/dL Calcium 8.6 D (8.4-10.2) mg/dL Troponin I High Sens (<3.5-17.0) ng/L B-Natriuretic Peptide (<100) pg/mL Urine Color Urine Appearance Urine pH (5.0-8.0) Ur Specific [place] (1.005-1.025) Urine Protein (NEG-TRACE) MG/DL Urine Glucose (UA) (NEG) MG/DL Urine Ketones (NEG) MG/DL Urine Blood (NEG) Urine Nitrite (NEG) Ur Leukocyte Esterase (NEG) Urine RBC (0) /HPF Urine WBC (0-4) /HPF Ur Squamous Epith Cells /LPF Urine Bacteria /LPF Coronavirus (PCR) (Negative) COVID-19 (ANGEL) (Negative) COVID-19 Clin Com Influenza Type A (PCR) (Negative) Influenza Type B (PCR) (Negative) RSV RNA Qual (PCR) (Negative) 08/23/20 08/23/20 08/24/20 Range/Units 15:53 19:43 00:10 WBC (4.8-10.8) X10*3/uL RBC (4.20-5.50) X10*6/uL Hgb (12.0-16.0) g/dl Hct (37-47) % MCV (80-98) fL MCH (27.0-33.0) pg MCHC (31.0-35.0) g/dl RDW (11.0-16.0) % Plt Count (160-400) X10*3/uL MPV (9.4-12.3) fL Immature Gran % (Auto) (0.0-0.4) % Neut % (Auto) (45-73) % Lymph % (Auto) (20-40) % [place] % (Auto) (2-11) % Eos % (Auto) (0-4) % Baso % (Auto) (0-2) % Lymph # (Auto) (1.2-4.9) X10*3/uL [place] # (Auto) (0.1-1.2) X10*3/uL Eos # (Auto) (0.0-0.4) X10*3/uL Baso # (Auto) (0.0-0.2) X10*3/uL Abs Immat Gran (auto) (0.00-0.03) X10*3/uL Absolute Neuts (auto) (2.0-8.3) X10*3/uL Absolute Nucleated RBC (0.0-0.012) X10*3/uL Nucleated RBC % (auto) (0.0-0.2) /100WBC Smear Tech's Comments Hold Blue Top Sodium (135-145) mmol/L Potassium (3.3-5.1) mmol/L Chloride (96-108) mmol/L Carbon Dioxide (22-29) mmol/L Anion Gap (12-20) BUN (9-16) mg/dL Creatinine (0.5-1.4) mg/dL Estim Creat Clear Calc Estimated GFR POC Glucose 122 H (60-115) mg/dL Random Glucose (60-115) mg/dL Calcium (8.4-10.2) mg/dL Troponin I High Sens < 3.5 (<3.5-17.0) ng/L B-Natriuretic Peptide (<100) pg/mL Urine Color YELLOW Urine Appearance CLEAR Urine pH 7.0 (5.0-8.0) Ur Specific [place] 1.010 (1.005-1.025) Urine Protein NEG (NEG-TRACE) MG/DL Urine Glucose (UA) NEG (NEG) MG/DL Urine Ketones NEG (NEG) MG/DL Urine Blood TRACE (NEG) Urine Nitrite NEG (NEG) Ur Leukocyte Esterase NEG (NEG) Urine RBC 0-2 (0) /HPF Urine WBC 0 (0-4) /HPF Ur Squamous Epith Cells 1+ /LPF Urine Bacteria TRACE /LPF Coronavirus (PCR) (Negative) COVID-19 (ANGEL) (Negative) COVID-19 Clin Com Influenza Type A (PCR) (Negative) Influenza Type B (PCR) (Negative) RSV RNA Qual (PCR) (Negative) 08/24/20 08/24/20 08/24/20 Range/Units 00:17 11:06 11:06 WBC 11.3 H (4.8-10.8) X10*3/uL RBC 3.74 L (4.20-5.50) X10*6/uL Hgb 12.3 (12.0-16.0) g/dl Hct 38.7 (37-47) % MCV 103.5 H (80-98) fL MCH 32.9 (27.0-33.0) pg MCHC 31.8 (31.0-35.0) g/dl RDW 13.2 (11.0-16.0) % Plt Count 180 (160-400) X10*3/uL MPV 8.7 L (9.4-12.3) fL Immature Gran % (Auto) 1.1 H (0.0-0.4) % Neut % (Auto) 71.1 (45-73) % Lymph % (Auto) 18.2 L (20-40) % [place] % (Auto) 9.0 (2-11) % Eos % (Auto) 0.4 (0-4) % Baso % (Auto) 0.2 (0-2) % Lymph # (Auto) 2.1 (1.2-4.9) X10*3/uL [place] # (Auto) 1.0 (0.1-1.2) X10*3/uL Eos # (Auto) 0.0 (0.0-0.4) X10*3/uL Baso # (Auto) 0.0 (0.0-0.2) X10*3/uL Abs Immat Gran (auto) 0.12 H (0.00-0.03) X10*3/uL Absolute Neuts (auto) 8.1 (2.0-8.3) X10*3/uL Absolute Nucleated RBC 0.000 (0.0-0.012) X10*3/uL Nucleated RBC % (auto) 0.0 (0.0-0.2) /100WBC Smear Tech's Comments Hold Blue Top Sodium 139 (135-145) mmol/L Potassium 3.9 (3.3-5.1) mmol/L Chloride 104 (96-108) mmol/L Carbon Dioxide 27 (22-29) mmol/L Anion Gap 12 (12-20) BUN 11 (9-16) mg/dL Creatinine 0.81 (0.5-1.4) mg/dL Estim Creat Clear Calc 70.3 Estimated GFR > 60 POC Glucose (60-115) mg/dL Random Glucose 135 H (60-115) mg/dL Calcium 8.6 (8.4-10.2) mg/dL Troponin I High Sens (<3.5-17.0) ng/L B-Natriuretic Peptide (<100) pg/mL Urine Color Urine Appearance Urine pH (5.0-8.0) Ur Specific [place] (1.005-1.025) Urine Protein (NEG-TRACE) MG/DL Urine Glucose (UA) (NEG) MG/DL Urine Ketones (NEG) MG/DL Urine Blood (NEG) Urine Nitrite (NEG) Ur Leukocyte Esterase (NEG) Urine RBC (0) /HPF Urine WBC (0-4) /HPF Ur Squamous Epith Cells /LPF Urine Bacteria /LPF Coronavirus (PCR) (Negative) COVID-19 (ANGEL) Negative (Negative) COVID-19 Clin Com See Note Influenza Type A (PCR) (Negative) Influenza Type B (PCR) (Negative) RSV RNA Qual (PCR) (Negative) 08/24/20 08/24/20 Range/Units 12:34 15:25 WBC (4.8-10.8) X10*3/uL RBC (4.20-5.50) X10*6/uL Hgb (12.0-16.0) g/dl Hct (37-47) % MCV (80-98) fL MCH (27.0-33.0) pg MCHC (31.0-35.0) g/dl RDW (11.0-16.0) % Plt Count (160-400) X10*3/uL MPV (9.4-12.3) fL Immature Gran % (Auto) (0.0-0.4) % Neut % (Auto) (45-73) % Lymph % (Auto) (20-40) % [place] % (Auto) (2-11) % Eos % (Auto) (0-4) % Baso % (Auto) (0-2) % Lymph # (Auto) (1.2-4.9) X10*3/uL [place] # (Auto) (0.1-1.2) X10*3/uL Eos # (Auto) (0.0-0.4) X10*3/uL Baso # (Auto) (0.0-0.2) X10*3/uL Abs Immat Gran (auto) (0.00-0.03) X10*3/uL Absolute Neuts (auto) (2.0-8.3) X10*3/uL Absolute Nucleated RBC (0.0-0.012) X10*3/uL Nucleated RBC % (auto) (0.0-0.2) /100WBC Smear Tech's Comments Hold Blue Top Sodium (135-145) mmol/L Potassium (3.3-5.1) mmol/L Chloride (96-108) mmol/L Carbon Dioxide (22-29) mmol/L Anion Gap (12-20) BUN (9-16) mg/dL Creatinine (0.5-1.4) mg/dL Estim Creat Clear Calc Estimated GFR POC Glucose (60-115) mg/dL Random Glucose (60-115) mg/dL Calcium (8.4-10.2) mg/dL Troponin I High Sens < 3.5 (<3.5-17.0) ng/L B-Natriuretic Peptide 71 (<100) pg/mL Urine Color Urine Appearance Urine pH (5.0-8.0) Ur Specific [place] (1.005-1.025) Urine Protein (NEG-TRACE) MG/DL Urine Glucose (UA) (NEG) MG/DL Urine Ketones (NEG) MG/DL Urine Blood (NEG) Urine Nitrite (NEG) Ur Leukocyte Esterase (NEG) Urine RBC (0) /HPF Urine WBC (0-4) /HPF Ur Squamous Epith Cells /LPF Urine Bacteria /LPF Coronavirus (PCR) NEGATIVE (Negative) COVID-19 (ANGEL) (Negative) COVID-19 Clin Com Influenza Type A (PCR) NEGATIVE (Negative) Influenza Type B (PCR) NEGATIVE (Negative) RSV RNA Qual (PCR) NEGATIVE (Negative) <MICHELE Tong - Last Filed: 08/24/20 09:36> Lab Results 08/23/20 08/23/20 08/23/20 Range/Units 15:53 15:53 15:53 WBC 13.7 H (4.8-10.8) X10*3/uL RBC 3.61 L (4.20-5.50) X10*6/uL Hgb 12.0 (12.0-16.0) g/dl Hct 36.3 L (37-47) % MCV 100.6 H (80-98) fL MCH 33.2 H (27.0-33.0) pg MCHC 33.1 (31.0-35.0) g/dl RDW 13.0 (11.0-16.0) % Plt Count 189 (160-400) X10*3/uL MPV 8.9 L (9.4-12.3) fL Immature Gran % (Auto) 1.0 H (0.0-0.4) % Neut % (Auto) 72.4 (45-73) % Lymph % (Auto) 13.6 L (20-40) % [place] % (Auto) 12.8 H (2-11) % Eos % (Auto) 0.1 (0-4) % Baso % (Auto) 0.1 (0-2) % Lymph # (Auto) 1.9 (1.2-4.9) X10*3/uL [place] # (Auto) 1.8 H (0.1-1.2) X10*3/uL Eos # (Auto) 0.0 (0.0-0.4) X10*3/uL Baso # (Auto) 0.0 (0.0-0.2) X10*3/uL Abs Immat Gran (auto) 0.14 H (0.00-0.03) X10*3/uL Absolute Neuts (auto) 9.9 H (2.0-8.3) X10*3/uL Absolute Nucleated RBC 0.000 (0.0-0.012) X10*3/uL Nucleated RBC % (auto) 0.0 (0.0-0.2) /100WBC Smear Tech's Comments VERIFIED Hold Blue Top SEE NOTE Sodium 142 (135-145) mmol/L Potassium 3.6 (3.3-5.1) mmol/L Chloride 108 (96-108) mmol/L Carbon Dioxide 24 (22-29) mmol/L Anion Gap 14 (12-20) BUN 10 (9-16) mg/dL Creatinine 0.77 (0.5-1.4) mg/dL Estim Creat Clear Calc 74.0 Estimated GFR > 60 POC Glucose (60-115) mg/dL Random Glucose 127 H (60-115) mg/dL Calcium 8.6 D (8.4-10.2) mg/dL Troponin I High Sens (<3.5-17.0) ng/L B-Natriuretic Peptide (<100) pg/mL Urine Color Urine Appearance Urine pH (5.0-8.0) Ur Specific [place] (1.005-1.025) Urine Protein (NEG-TRACE) MG/DL Urine Glucose (UA) (NEG) MG/DL Urine Ketones (NEG) MG/DL Urine Blood (NEG) Urine Nitrite (NEG) Ur Leukocyte Esterase (NEG) Urine RBC (0) /HPF Urine WBC (0-4) /HPF Ur Squamous Epith Cells /LPF Urine Bacteria /LPF Coronavirus (PCR) (Negative) COVID-19 (ANGEL) (Negative) COVID-19 Clin Com Influenza Type A (PCR) (Negative) Influenza Type B (PCR) (Negative) RSV RNA Qual (PCR) (Negative) 08/23/20 08/23/20 08/24/20 Range/Units 15:53 19:43 00:10 WBC (4.8-10.8) X10*3/uL RBC (4.20-5.50) X10*6/uL Hgb (12.0-16.0) g/dl Hct (37-47) % MCV (80-98) fL MCH (27.0-33.0) pg MCHC (31.0-35.0) g/dl RDW (11.0-16.0) % Plt Count (160-400) X10*3/uL MPV (9.4-12.3) fL Immature Gran % (Auto) (0.0-0.4) % Neut % (Auto) (45-73) % Lymph % (Auto) (20-40) % [place] % (Auto) (2-11) % Eos % (Auto) (0-4) % Baso % (Auto) (0-2) % Lymph # (Auto) (1.2-4.9) X10*3/uL [place] # (Auto) (0.1-1.2) X10*3/uL Eos # (Auto) (0.0-0.4) X10*3/uL Baso # (Auto) (0.0-0.2) X10*3/uL Abs Immat Gran (auto) (0.00-0.03) X10*3/uL Absolute Neuts (auto) (2.0-8.3) X10*3/uL Absolute Nucleated RBC (0.0-0.012) X10*3/uL Nucleated RBC % (auto) (0.0-0.2) /100WBC Smear Tech's Comments Hold Blue Top Sodium (135-145) mmol/L Potassium (3.3-5.1) mmol/L Chloride (96-108) mmol/L Carbon Dioxide (22-29) mmol/L Anion Gap (12-20) BUN (9-16) mg/dL Creatinine (0.5-1.4) mg/dL Estim Creat Clear Calc Estimated GFR POC Glucose 122 H (60-115) mg/dL Random Glucose (60-115) mg/dL Calcium (8.4-10.2) mg/dL Troponin I High Sens < 3.5 (<3.5-17.0) ng/L B-Natriuretic Peptide (<100) pg/mL Urine Color YELLOW Urine Appearance CLEAR Urine pH 7.0 (5.0-8.0) Ur Specific [place] 1.010 (1.005-1.025) Urine Protein NEG (NEG-TRACE) MG/DL Urine Glucose (UA) NEG (NEG) MG/DL Urine Ketones NEG (NEG) MG/DL Urine Blood TRACE (NEG) Urine Nitrite NEG (NEG) Ur Leukocyte Esterase NEG (NEG) Urine RBC 0-2 (0) /HPF Urine WBC 0 (0-4) /HPF Ur Squamous Epith Cells 1+ /LPF Urine Bacteria TRACE /LPF Coronavirus (PCR) (Negative) COVID-19 (ANGEL) (Negative) COVID-19 Clin Com Influenza Type A (PCR) (Negative) Influenza Type B (PCR) (Negative) RSV RNA Qual (PCR) (Negative) 08/24/20 08/24/20 08/24/20 Range/Units 00:17 11:06 11:06 WBC 11.3 H (4.8-10.8) X10*3/uL RBC 3.74 L (4.20-5.50) X10*6/uL Hgb 12.3 (12.0-16.0) g/dl Hct 38.7 (37-47) % MCV 103.5 H (80-98) fL MCH 32.9 (27.0-33.0) pg MCHC 31.8 (31.0-35.0) g/dl RDW 13.2 (11.0-16.0) % Plt Count 180 (160-400) X10*3/uL MPV 8.7 L (9.4-12.3) fL Immature Gran % (Auto) 1.1 H (0.0-0.4) % Neut % (Auto) 71.1 (45-73) % Lymph % (Auto) 18.2 L (20-40) % [place] % (Auto) 9.0 (2-11) % Eos % (Auto) 0.4 (0-4) % Baso % (Auto) 0.2 (0-2) % Lymph # (Auto) 2.1 (1.2-4.9) X10*3/uL [place] # (Auto) 1.0 (0.1-1.2) X10*3/uL Eos # (Auto) 0.0 (0.0-0.4) X10*3/uL Baso # (Auto) 0.0 (0.0-0.2) X10*3/uL Abs Immat Gran (auto) 0.12 H (0.00-0.03) X10*3/uL Absolute Neuts (auto) 8.1 (2.0-8.3) X10*3/uL Absolute Nucleated RBC 0.000 (0.0-0.012) X10*3/uL Nucleated RBC % (auto) 0.0 (0.0-0.2) /100WBC Smear Tech's Comments Hold Blue Top Sodium 139 (135-145) mmol/L Potassium 3.9 (3.3-5.1) mmol/L Chloride 104 (96-108) mmol/L Carbon Dioxide 27 (22-29) mmol/L Anion Gap 12 (12-20) BUN 11 (9-16) mg/dL Creatinine 0.81 (0.5-1.4) mg/dL Estim Creat Clear Calc 70.3 Estimated GFR > 60 POC Glucose (60-115) mg/dL Random Glucose 135 H (60-115) mg/dL Calcium 8.6 (8.4-10.2) mg/dL Troponin I High Sens (<3.5-17.0) ng/L B-Natriuretic Peptide (<100) pg/mL Urine Color Urine Appearance Urine pH (5.0-8.0) Ur Specific [place] (1.005-1.025) Urine Protein (NEG-TRACE) MG/DL Urine Glucose (UA) (NEG) MG/DL Urine Ketones (NEG) MG/DL Urine Blood (NEG) Urine Nitrite (NEG) Ur Leukocyte Esterase (NEG) Urine RBC (0) /HPF Urine WBC (0-4) /HPF Ur Squamous Epith Cells /LPF Urine Bacteria /LPF Coronavirus (PCR) (Negative) COVID-19 (ANGEL) Negative (Negative) COVID-19 Clin Com See Note Influenza Type A (PCR) (Negative) Influenza Type B (PCR) (Negative) RSV RNA Qual (PCR) (Negative) 08/24/20 08/24/20 Range/Units 12:34 15:25 WBC (4.8-10.8) X10*3/uL RBC (4.20-5.50) X10*6/uL Hgb (12.0-16.0) g/dl Hct (37-47) % MCV (80-98) fL MCH (27.0-33.0) pg MCHC (31.0-35.0) g/dl RDW (11.0-16.0) % Plt Count (160-400) X10*3/uL MPV (9.4-12.3) fL Immature Gran % (Auto) (0.0-0.4) % Neut % (Auto) (45-73) % Lymph % (Auto) (20-40) % [place] % (Auto) (2-11) % Eos % (Auto) (0-4) % Baso % (Auto) (0-2) % Lymph # (Auto) (1.2-4.9) X10*3/uL [place] # (Auto) (0.1-1.2) X10*3/uL Eos # (Auto) (0.0-0.4) X10*3/uL Baso # (Auto) (0.0-0.2) X10*3/uL Abs Immat Gran (auto) (0.00-0.03) X10*3/uL Absolute Neuts (auto) (2.0-8.3) X10*3/uL Absolute Nucleated RBC (0.0-0.012) X10*3/uL Nucleated RBC % (auto) (0.0-0.2) /100WBC Smear Tech's Comments Hold Blue Top Sodium (135-145) mmol/L Potassium (3.3-5.1) mmol/L Chloride (96-108) mmol/L Carbon Dioxide (22-29) mmol/L Anion Gap (12-20) BUN (9-16) mg/dL Creatinine (0.5-1.4) mg/dL Estim Creat Clear Calc Estimated GFR POC Glucose (60-115) mg/dL Random Glucose (60-115) mg/dL Calcium (8.4-10.2) mg/dL Troponin I High Sens < 3.5 (<3.5-17.0) ng/L B-Natriuretic Peptide 71 (<100) pg/mL Urine Color Urine Appearance Urine pH (5.0-8.0) Ur Specific [place] (1.005-1.025) Urine Protein (NEG-TRACE) MG/DL Urine Glucose (UA) (NEG) MG/DL Urine Ketones (NEG) MG/DL Urine Blood (NEG) Urine Nitrite (NEG) Ur Leukocyte Esterase (NEG) Urine RBC (0) /HPF Urine WBC (0-4) /HPF Ur Squamous Epith Cells /LPF Urine Bacteria /LPF Coronavirus (PCR) NEGATIVE (Negative) COVID-19 (ANGEL) (Negative) COVID-19 Clin Com Influenza Type A (PCR) NEGATIVE (Negative) Influenza Type B (PCR) NEGATIVE (Negative) RSV RNA Qual (PCR) NEGATIVE (Negative) <Patrick Barnhart MD - Last Filed: 08/24/20 16:42> Imaging Data Chest x-ray: Radiologist's impression: Mild linear markings at the right lung base could represent mild atelectasis or scarring. Mild bronchiectasis cannot be excluded. A definitive infiltrate is not seen. <Frannie Flowers MD - Last Filed: 08/23/20 19:37> ECG Data ECG #1: Interpretation: Normal sinus rhythm at 73 beats per minutes, normal intervals, nonspecific flattening T-wave in V3, V6. <Frannie Flowers MD - Last Filed: 08/23/20 19:37> Discharge Plan Discharge Clinical Impression: Chest pain, non-cardiac Leukocytosis Qualifiers: Leukocytosis type: unspecified Qualified Code(s): D72.829 - Elevated white blood cell count, unspecified <Frannie Flowers MD - Last Filed: 08/23/20 19:37> Instructions: Chest Pain (ED) <Frannie Flowers MD - Last Filed: 08/23/20 19:37> Prescriptions: No Action ascorbic acid (vitamin C) [Vitamin C] 500 mg tablet 500 mg PO DAILY Qty: 90 RF: 3 metoprolol succinate 25 mg tablet extended release 24 hr 25 mg PO DAILY Qty: 90 RF: 1 (DME) lancets 33 gauge misc See Rx Instructions .ROUTE .MEDSUPPLY Qty: 100 RF: 0 (DME) lancing device with lancets [TYFFONuch Delica Lanc Device] Kit See Rx Instructions .ROUTE .MEDSUPPLY Qty: 1 RF: 0 oxybutynin chloride 5 mg tablet 5 mg PO BID Qty: 180 RF: 1 ferrous fumarate [Ferrocite] 324 mg (106 mg iron) tablet 324 mg PO DAILY Qty: 100 RF: 2 risperidone 1 mg tablet 1 mg PO BID Qty: 60 RF: 0 perphenazine 4 mg tablet 4 mg PO BID Qty: 90 RF: 0 amlodipine 5 mg tablet 5 mg PO DAILY Qty: 90 RF: 1 metformin 500 mg tablet extended release 24 hr 500 mg PO BID Qty: 180 RF: 1 divalproex 500 mg tablet extended release 24 hr 500 mg PO DAILY RF: 0 divalproex 500 mg tablet extended release 24 hr 1,000 mg PO BEDTIME RF: 0 lisinopril 2.5 mg tablet 2.5 mg PO DAILY RF: 0 pantoprazole 40 mg tablet,delayed release (DR/EC) 40 mg PO DAILY 30 Days Qty: 30 RF: 3 nystatin 100,000 unit/gram powder 1 appl topical BID 30 Days Qty: 15 RF: 1 levothyroxine 100 mcg tablet 100 mcg PO DAILY RF: 0 atorvastatin 40 mg tablet 40 mg PO BEDTIME RF: 0 cholecalciferol (vitamin D3) 25 mcg (1,000 unit) tablet 25 mcg PO DAILY RF: 0 <Frannie Flowers MD - Last Filed: 08/23/20 19:37> Referrals: Brown Dickson MD [Primary Care Provider] - 2 days <Frannie Flowers MD - Last Filed: 08/23/20 19:37>
--- NOTE | 2020-08-23 16:50 | PC.NURSE ---
PATIENT'S DAUGHTER CALLS AT THIS TIME FOR UPDATE. SHILPA SMITH STATES SHE IS UNABLE TO CALL AT THIS TIME. THIS MUSIC CATALOGUER TAKES DOWN PATIENT'S DAUGHTER'S PHONE NUMBER AND INFORMS DAUGHTER OF SHILPA SMITH'S STATED INTENTION TO CALL THEM BACK [facility] [phone]
[2020-08-23 18:00] VITALS: BP 117/65; PULSE 72; RESP 18; TEMP 36.6; O2SAT 93
[2020-08-23 19:42] VITALS: BP 134/68; PULSE 81; RESP 18; TEMP 36.7; O2SAT 93
--- NOTE | 2020-08-23 19:44 | PC.NURSE ---
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
[2020-08-23 19:54] LABS: Glucose Urine UA NEG (NEG); Leukocyte Esterase Urine NEG (NEG); Nitrite Urine NEG (NEG); Urine Blood TRACE (NEG); Urine Ketones NEG (NEG); Urine Protein NEG (NEG-TRACE)
[2020-08-23 19:55] LABS: Appearance Urine CLEAR; Color Urine YELLOW
[2020-08-23 19:59] LABS: Bacteria Urine TRACE /LPF; RBC Urine 0-2 /HPF (0); Squamous Epithelial Cell Urine 1+ /LPF; WBC Urine 0 /HPF (0-4)
--- NOTE | 2020-08-23 21:37 | MHC.CM.ED ---
CM met with pt. A&Ox3. Lives with . HCP/ Davis Chapa ([phone]). HCP is on file. Pt uses a walker and states she is unsteady and is fearful of falling. Pt has anxiety and is fearful if alone. Has a [employer] 2 [id number] a week and 1 hour on Saturday. Pt agrees to stay overnight for PT evaluation in the am and is willing to go to rehab. Has no requests, but would like to be local ([facility]). Spoke with , Davis. He reports pt has been unsteady on her feet with her walker and he feels she's been having trouble since her friend . Has hx of bipolar and DM. Davis feels he needs more help at home and was encouraged to reach out to [facility]. Davis agrees that his needs rehab. Aware that his will stay overnight and CM will call him in the morning after the PT evaluation and with SNF that have offered her a bed. Referrals placed (9) locally. PT and Covid pending. CM to follow for d/c needs.
[2020-08-23 21:44] VITALS: BP 112/62; PULSE 68; RESP 18; TEMP 36.7; O2SAT 94
--- NOTE | 2020-08-23 21:46 | PC.NURSE ---
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
[2020-08-23 23:13] VITALS: BP 108/58; PULSE 65; RESP 21; O2SAT 93
[2020-08-24] VITALS (15 sets, daily range): BP systolic 77–123; BP diastolic 38–69; PULSE 58–69; RESP 18–23; TEMP 36.3–37.6; O2SAT 85–100; BMI 32.6
[2020-08-24] MEDS: Divalproex Sodium ER 500 MG TAB.ER.24H 1000 MG PO ×2 (00:11→21:49)
[2020-08-24] MEDS: risperiDONE 1 MG TABLET PO ×3 (00:12→21:47)
[2020-08-24] MEDS: Atorvastatin Calcium 40 MG TABLET PO ×2 (00:12→21:47)
[2020-08-24] MEDS: Perphenazine 4 MG TABLET PO ×3 (00:12→21:50)
[2020-08-24] MEDS: metFORMIN HCl ER 500 MG TAB.ER.24H PO ×2 (00:13→09:11)
[2020-08-24 00:31] LABS: Glucose, Whole Blood 122 mg/dL (60-115)
[2020-08-24 00:47] LABS: COVID-19 Test Negative (Negative)
[2020-08-24] MEDS: Omeprazole 20 MG CAPSULE.DR PO (06:10)
--- NOTE | 2020-08-24 06:52 | PC.NURSE ---
REPORT TAKEN FROM SIXTO RN PT APPEARS TO BE SLEEPING IN BED, AWAITING CM EVAL AND PT EVAL THIS AM. RR EVEN/UNLABORED, BREAKFAST TRAY BROUGHT TO BEDSIDE. WCTM.
[2020-08-24] MEDS: amLODIPine Besylate 5 MG TABLET PO (09:09)
[2020-08-24] MEDS: Cholecalciferol (Vitamin D3) 25 MCG TABLET PO (09:09)
[2020-08-24] MEDS: Divalproex Sodium ER 500 MG TAB.ER.24H PO (09:10)
[2020-08-24] MEDS: Metoprolol Succinate ER 25 MG TAB.ER.24H PO (09:10)
[2020-08-24] MEDS: Ascorbic Acid 500 MG TABLET PO (09:10)
[2020-08-24] MEDS: Ferrous Sulfate 324 MG TABLET.DR PO (09:10)
[2020-08-24] MEDS: Levothyroxine Sodium 100 MCG TABLET PO (09:10)
[2020-08-24] MEDS: Nystatin Powder 15 GM BOTTLE 1 APPL TOPICAL (09:11)
--- NOTE | 2020-08-24 09:33 | PC.NURSE ---
pt being ordered cta d/t documented hypoxia. pt resting in bed no apparent distress. took all morning meds without issue. able to transfer to commode w one assist. tm.
--- NOTE | 2020-08-24 09:56 | PC.NURSE ---
pt transferred to and from commode using one assist, pulse ox monitered during exertion showing at lowest, 85% on room air spo2. cta ordered to clinically compare w xray and documented hypoxia. monitor for possible medical admission, case mgmt aware.
--- NOTE | 2020-08-24 10:01 | MHC.CM.ED ---
Received notification from SHILPA Luciano, patient's daughter is requesting [facility] be first placement choice. Referral made via [employer]. [facility] is out of network for patient's insurance. Spoke with Katarina via telephone. [facility] is first choice. T/W explained patient's o2 sat dropped and CT of chest was being performed. Medical admission may be necessary. Katarina verbalized understanding and stated she would let her father/patient's Davis know. Continue to monitor for d/c needs.
--- NOTE | 2020-08-24 10:12 | PC.NURSE ---
pt iv infiltrated at end of ct scan, test still completed but pt c/o 10/10 pain. pt appears calm and cooperative, nad noted. iv site appears swollen, no redness or heat.
[2020-08-24] MEDS: iohexoL 350 MG/ML 75 ML INFUS..BTL IV (10:21)
[2020-08-24] MEDS: Ibuprofen 600 MG TABLET PO (10:29)
--- NOTE | 2020-08-24 11:09 | PC.NURSE ---
iv replaced, repeat labs drawn and sent.
[2020-08-24 11:12] LABS: MANUAL DIFF FLAG NO
[2020-08-24 11:15] LABS: Basophils Percent Auto 0.2 % (0-2); Eosinophils Percent Auto 0.4 % (0-4); Hematocrit 38.7 % (37-47); Hemoglobin 12.3 g/dl (12.0-16.0); Imm Gran Abs Auto 0.12 X10*3/uL (0.00-0.03); Imm Gran Pct Auto 1.1 % (0.0-0.4); Lymphocytes Absolute Auto 2.1 X10*3/uL (1.2-4.9); Lymphocytes Percent Auto 18.2 % (20-40); Mean Corpuscular HGB Conc 31.8 g/dl (31.0-35.0); Mean Corpuscular Hemoglobin 32.9 pg (27.0-33.0); Mean Corpuscular Volume 103.5 fL (80-98); Mean Platelet Volume 8.7 fL (9.4-12.3); Neutrophils Absolute Auto 8.1 X10*3/uL (2.0-8.3); Neutrophils Percent Auto 71.1 % (45-73); Platelet Count 180 X10*3/uL (160-400); Red Blood Count 3.74 X10*6/uL (4.20-5.50); Red Cell Distribution Width 13.2 % (11.0-16.0); White Blood Count 11.3 X10*3/uL (4.8-10.8)
[2020-08-24 11:38] LABS: Anion Gap 12 (12-20); Blood Urea Nitrogen 11 mg/dL (9-16); Calcium 8.6 mg/dL (8.4-10.2); Carbon Dioxide 27 mmol/L (22-29); Chloride 104 mmol/L (96-108); Creatinine Clr Calc Pharmacy 70.3; Estimated Glomerular Filt Rate > 60; Glucose Random 135 mg/dL (60-115); Potassium 3.9 mmol/L (3.3-5.1); Sodium 139 mmol/L (135-145)
[2020-08-24 13:40] LABS: Influenza A PCR NEGATIVE (Negative); Influenza B PCR NEGATIVE (Negative); Resp Syncy Virus RNA Qual PCR NEGATIVE (Negative); SARS COV2 PCR INHOUSE NEGATIVE (Negative)
--- NOTE | 2020-08-24 14:08 | PC.NURSE ---
pt ate all of lunch, in good spirits. darwin.
--- NOTE | 2020-08-24 14:44 | MHC.CM.ED ---
Patient will be admitted due to hypoxia. Patient's daughter, Katarina made aware via telephone at [phone]. She will let her father know. [facility] is first choice, however, they are not able to offer a bed at this time. Continue to monitor for d/c needs.
--- NOTE | 2020-08-24 14:54 | ECG_ITS ---
Test Reason : CHEST PAIN Blood Pressure : / mmHG Vent. Rate : 060 BPM Atrial Rate : 060 BPM P-R Int : 180 ms QRS Dur : 084 ms QT Int : 448 ms P-R-T Axes : 056 034 039 degrees QTc Int : 448 ms Normal sinus rhythm Nonspecific T wave abnormality Abnormal ECG When compared with ECG of 23-AUG-2020 16:24, No significant change was found Referred By: Madiha Haro Electronically Signed By:Hadley Aguilera
--- NOTE | 2020-08-24 15:18 | PC.NURSE ---
rt contacted for neb and incentive spectrometry
[2020-08-24] MEDS: Albuterol Sulfate (0.083%) 2.5 MG/3 ML VIAL.NEB 5 MG INHALE (15:32)
--- NOTE | 2020-08-24 15:43 | PC.NURSE ---
pt desaturates with position change in bed. at rest pt is 94-95% on 3L, pt will desaturate down to 88 while being repositioned in bed.
[2020-08-24 16:06] LABS: B Type Natriuretic Peptide 71 pg/mL (<100); Troponin-I High Sensitivity < 3.5 ng/L (<3.5-17.0)
[2020-08-24] MEDS: 0.9 % Sodium Chloride 1,000 ML 999 ML IVCONT (16:35)
--- NOTE | 2020-08-24 16:35 | PC.NURSE ---
pt was found to by hypotensive bp confirmed that 78/38, iv estabished 18g l forearm. 1l bolus hung.
--- NOTE | 2020-08-24 16:43 | PC.NURSE ---
md to bedside, plan to begin sepsis protocol.
--- NOTE | 2020-08-24 17:01 | PC.NURSE ---
per md subtract orginal liter bolus from sepsis resusitation.
[2020-08-24 17:42] LABS: Lactic Acid 2.2 mmol/L (0.5-2.0)
--- NOTE | 2020-08-24 18:30 | MHC.CM.PN ---
CM met with pt. Pt to be admitted as inpatient. IMM reviewed and signed per protocol. CM assessment complete. STR recommended by PT. [facility] [place] first choice of daughter. No bed available. CM to follow for d/c needs.
[2020-08-24 19:00] LABS: Reflex Lactate? Lactic Acid Added
[2020-08-24 19:39] LABS: ~Lactic Acid-LAB USE ONLY 1.8 mmol/L (0.5-2.0)
--- NOTE | 2020-08-24 20:28 | P.HPHOSP_ITS ---
History of Present Illness Date of Service: 08/24/20 Chief Complaint: Chest pain This is a 75-year-old female with past medical history of diabetes, hypertension, hypothyroidism, bipolar disorder, GERD, who presents to the hospital initially on 08/23 with complaints of chest pain. Patient reports that she started developing midsternal heavy chest pain as 03/26, radiating to the back, that relieved with Tylenol, she went to bed woke up at 5:30 a.m. called her sister and her sister told her to go to the hospital. Patient reports that she no longer has chest pain at this time. While in the ED patient did desat to the 80s although patient reports no shortness of breath, no palpitations, she reports a minimal cough and sputum production for past 2 weeks. Denies any recent travel or sick contacts. She has not had any fever or chills. She also was hypotensive while in the ED. She reports that she has been eating and drinking okay but has been having diarrhea 2 to 3 times a day for the past 2-3 weeks. She has been taking Imodium. She denies any urinary symptoms, denies any lower extremity edema. While in the ED patient also developed hypotension but responded to IV fluid. She reports she has been eating and drinking well. On arrival Vitals were significant on initial admission for temp of 98.2?, heart rate of 71, respiratory rate of 20, blood pressure of 117/54, satting 92% on room air, she desatted to 85% while waiting in the ED, and blood pressure also dropped during this ED stay to 70s/40s responding to IV fluids Labs are significant for WBC count of 11.3, hemoglobin of 12.3, sodium of 139, potassium 3.9, BUN of 11, creatinine of 0.81, lactic acid of 2.2 which improved to 1.8, high sensitivity troponin negative, BNP of 71, COVID-19 negative, chest x-ray negative, chest CT angiogram negative for PE a showed pleural base nodule posterior left lower lobe with some central coarse calcification. And this has not changed in size since 2018. Consistent with benign nodule EKG showed normal sinus rhythm with no significant changes Past medical history as below confirmed with patient She lives alone, and uses a walker to ambulate Review of Systems Review of Systems: Yes all other systems are reviewed and are negative [facility] Medical History Acquired hypothyroidism Allergic rhinitis Anemia Benign essential hypertension Bipolar disorder Diabetes mellitus GERD without esophagitis High bilirubin History of vitamin D deficiency Hx of diabetes insipidus Hx of strabismus Hypertension Intertrigo Obesity (BMI 30-39.9) Pain of left lower extremity Pure hypercholesterolemia Family History Father History of cerebral hemorrhage Mother History of cerebral hemorrhage Surgical History History of eye surgery History of left breast biopsy Hx of cataract surgery (~07/2017) Hx of dilation and curettage Social History Alcohol intake: never Smoking Status: Former smoker Use of substances other than those prescribed or required for medical reasons: No Advance Directives: Yes Advance Directives on File: Yes Advance Directives Date on File: 08/24/20 service: No Current occupational status: retired Meds Allergies Allergy/AdvReac Type Severity Reaction Status Date / Time amoxicillin [Amoxicillin] Allergy Intermediate SWELLING, Verified 08/23/20 15:25 rash Sulfa (Sulfonamide Allergy Intermediate itching & Verified 08/23/20 15:25 Antibiotics) bruising codeine [CODEINE] Allergy Unknown RASH Verified 08/23/20 15:25 dicyclomine Allergy Unknown Unknown Verified 08/23/20 15:25 lidocaine [LIDOCAINE] Allergy Unknown UNKNOWN Verified 08/23/20 15:25 lithium [LITHIUM] AdvReac Severe NEPHROGENIC Verified 08/23/20 15:25 DIABETES INSIPIDUS meclizine [Meclizine] AdvReac Intermediate INCREASES Verified 08/23/20 15:25 DIZZINESS simvastatin [SIMVASTATIN] AdvReac Intermediate MYALGIAS Verified 08/23/20 15:25 metronidazole [METRONIDAZOLE] AdvReac Mild FLU LIKE Verified 08/23/20 15:25 SYMPTOMS acyclovir AdvReac Unknown Unknown Verified 08/23/20 15:25 Active Medications: Current Medications Generic Name Dose Route Start Last Admin Trade Name Freq PRN Reason Stop Dose Admin Amlodipine Besylate 5 mg 08/24/20 09:00 08/24/20 09:09 Amlodipine Besylate 5 Mg Tablet PO 5 mg DAILY FRANCINE Administration Protocol Ascorbic Acid 500 mg 08/24/20 09:00 08/24/20 09:10 Ascorbic Acid 500 Mg Tablet PO 500 mg DAILY FRANCINE Administration Atorvastatin Calcium 40 mg 08/23/20 23:30 08/24/20 00:12 Atorvastatin Calcium 40 Mg Tablet PO 40 mg BEDTIME FRANCINE Administration Divalproex Sodium 500 mg 08/24/20 09:00 08/24/20 09:10 Divalproex Sodium Er 500 Mg Tab.Er.24h PO 500 mg DAILY FRANCINE Administration Divalproex Sodium 1,000 mg 08/23/20 23:30 08/24/20 00:11 Divalproex Sodium Er 500 Mg Tab.Er.24h PO 1,000 mg BEDTIME FRANCINE Administration Ferrous Sulfate 324 mg 08/24/20 09:00 08/24/20 09:10 Ferrous Sulfate 324 Mg Tablet. PO 324 mg DAILY FRANCINE Administration Levothyroxine Sodium 100 mcg 08/24/20 09:00 08/24/20 09:10 Levothyroxine Sodium 100 Mcg Tablet PO 100 mcg DAILY FRANCINE Administration Lisinopril 2.5 mg 08/24/20 09:00 08/24/20 09:11 Lisinopril 2.5 Mg Tablet PO 2.5 mg DAILY FRANCINE Administration Protocol Metformin HCl 500 mg 08/23/20 23:30 08/24/20 09:11 Metformin Hcl Er 500 Mg Tab.Er.24h PO 500 mg BID FRANCINE Administration Metoprolol Succinate 25 mg 08/24/20 09:00 08/24/20 09:10 Metoprolol Succinate Er 25 Mg Tab.Er.24h PO 25 mg DAILY FRANCINE Administration Protocol Nystatin 1 appl 08/23/20 23:30 08/24/20 09:11 Nystatin Powder 15 Gm Bottle TOPICAL 1 appl BID FRANCINE Administration Protocol Omeprazole 20 mg 08/24/20 06:30 08/24/20 06:10 Omeprazole 20 Mg Capsule. PO 20 mg DAILY@0630 FRANCINE Administration Oxybutynin Chloride 10 mg 08/24/20 09:00 08/24/20 09:11 Oxybutynin Chloride Er 5 Mg Tab.Er.24 PO 10 mg DAILY FRANCINE Administration Perphenazine 4 mg 08/23/20 23:30 08/24/20 09:11 Perphenazine 4 Mg Tablet PO 4 mg BID FRANCINE Administration Pharmacy Consult 1 each 08/23/20 21:44 Consult Rx Perform Med Rec MISCELLANE ONCE PRN Consult order Risperidone 1 mg 08/23/20 23:30 08/24/20 09:10 Risperidone 1 Mg Tablet PO 1 mg BID FRANCINE Administration Vitamin D 25 mcg 08/24/20 09:00 08/24/20 09:09 Cholecalciferol (Vitamin D3) 25 Mcg Tablet PO 25 mcg DAILY FRANCINE Administration Home Medications Medication Instructions Recorded Confirmed Last Taken Type atorvastatin 40 mg tablet 40 mg PO BEDTIME tab 03/23/20 08/23/20 Unknown History cholecalciferol (vitamin D3) 25 25 mcg PO DAILY 03/23/20 08/23/20 Unknown History mcg (1,000 unit) tablet levothyroxine 100 mcg tablet 100 mcg PO DAILY 03/23/20 08/23/20 Unknown History lancing device with lancets kit #1 ea 05/11/20 08/02/20 Unknown History divalproex 1,000 mg PO BEDTIME 08/23/20 08/23/20 Unknown History divalproex 500 mg PO DAILY 08/23/20 08/23/20 Unknown History lisinopril 2.5 mg PO DAILY 08/23/20 08/23/20 Unknown History Physical Exam Vital Signs and Narrative: Vital Signs: Last Vital Signs Temp 97.5 F 08/24/20 19:59 Pulse 60 08/24/20 19:59 Resp 18 08/24/20 19:59 BP 92/49 L 08/24/20 19:59 Pulse Ox 93 08/24/20 19:59 Body Mass Index 32.6 Const: General: cooperative and no acute distress Orientation/consciousness: patient oriented x3 Eyes: General: appearance normal, both eyes and all related structures Resp: Effort & Inspection: normal respiratory effort Cardio: Rate: regular rate Rhythm: regular rhythm GI: Palpation (GI): Soft to palpation Auscultation: normal bowel sounds Skin: General skin exam: no rashes or lesions noted Neuro: General: patient oriented x3 Cognition (Neuro): normal cognition Extrem: General: Yes normal to inspection and Yes no pedal edema Results Labs CBC and Chem 7: 08/24/20 11:06 08/24/20 11:06 Labs: Laboratory Results - last 24 hr 08/24/20 08/24/20 08/24/20 00:10 00:17 11:06 MCV 103.5 H MCH 32.9 MCHC 31.8 RDW 13.2 Plt Count 180 MPV 8.7 L Immature Gran % (Auto) 1.1 H Neut % (Auto) 71.1 Lymph % (Auto) 18.2 L Pickett % (Auto) 9.0 Eos % (Auto) 0.4 Baso % (Auto) 0.2 Lymph # (Auto) 2.1 Pickett # (Auto) 1.0 Eos # (Auto) 0.0 Baso # (Auto) 0.0 Abs Immat Gran (auto) 0.12 H Absolute Neuts (auto) 8.1 Absolute Nucleated RBC 0.000 Nucleated RBC % (auto) 0.0 Anion Gap Estim Creat Clear Calc Estimated GFR POC Glucose 122 H Random Glucose Lactic Acid Lactic Acid Fup @ 2Hr Calcium Troponin I High Sens B-Natriuretic Peptide Coronavirus (PCR) COVID-19 (ANGEL) Negative COVID-19 Clin Com See Note Influenza Type A (PCR) Influenza Type B (PCR) RSV RNA Qual (PCR) 08/24/20 08/24/20 08/24/20 11:06 12:34 15:25 MCV MCH MCHC RDW Plt Count MPV Immature Gran % (Auto) Neut % (Auto) Lymph % (Auto) Pickett % (Auto) Eos % (Auto) Baso % (Auto) Lymph # (Auto) Pickett # (Auto) Eos # (Auto) Baso # (Auto) Abs Immat Gran (auto) Absolute Neuts (auto) Absolute Nucleated RBC Nucleated RBC % (auto) Anion Gap 12 Estim Creat Clear Calc 70.3 Estimated GFR > 60 POC Glucose Random Glucose 135 H Lactic Acid Lactic Acid Fup @ 2Hr Calcium 8.6 Troponin I High Sens < 3.5 B-Natriuretic Peptide 71 Coronavirus (PCR) NEGATIVE COVID-19 ([facility]EL) COVID-19 Clin Com Influenza Type A (PCR) NEGATIVE Influenza Type B (PCR) NEGATIVE RSV RNA Qual (PCR) NEGATIVE 08/24/20 08/24/20 16:52 19:11 MCV MCH MCHC RDW Plt Count MPV Immature Gran % (Auto) Neut % (Auto) Lymph % (Auto) Pickett % (Auto) Eos % (Auto) Baso % (Auto) Lymph # (Auto) Pickett # (Auto) Eos # (Auto) Baso # (Auto) Abs Immat Gran (auto) Absolute Neuts (auto) Absolute Nucleated RBC Nucleated RBC % (auto) Anion Gap Estim Creat Clear Calc Estimated GFR POC Glucose Random Glucose Lactic Acid 2.2 H* Lactic Acid Fup @ 2Hr 1.8 Calcium Troponin I High Sens B-Natriuretic Peptide Coronavirus (PCR) COVID-19 (ANGEL) COVID-19 Clin Com Influenza Type A (PCR) Influenza Type B (PCR) RSV RNA Qual (PCR) Imaging Radiologist's Impressions: Impressions Chest CTA 08/24/20 09:12 IMPRESSION: 1. No pulmonary embolism. No thoracic aortic enlargement or dissection. 2. Pleural-based nodule posterior left lower lobe 1.2 x 1.1 x 1.6 cm with some central coarse calcification. No significant change in size since CT 2018, consistent with benign nodule. VTE: negative Assessment and Plan (1) Chest pain, non-cardiac: Status: Acute (2) Leukocytosis: Qualifiers: Leukocytosis type: unspecified Qualified Code(s): D72.829 - Elevated white blood cell count, unspecified Status: Acute (3) Hypotension: Status: Acute (4) Hypoxia: Status: Acute (5) Diabetes mellitus: Qualifiers: Diabetes mellitus complication status: without complication Diabetes mellitus residential insulin use: unspecified residential insulin use status Diabetes mellitus type: type 2 Qualified Code(s): E11.9 - Type 2 diabetes mellitus without complications Status: Acute This is a 75-year-old female with past medical history as above who presents to the hospital initially chest pain, subsequently found to be hypoxic as well as having hypotension. # chest pain - described as midsternal, heavy, relieved with Tylenol - negative high sensitivity troponin, EKG shows no evidence of ACS - will monitor on telemetry # hypoxia - unclear etiology, patient has no history of COPD, chest x-ray negative for pneumonia, chest CT angiogram negative for PE or any other abnormality on chest x-ray, nodules chronic and benign - COVID-19 serology negative - will monitor for any respiratory distress - follow to supplement and wean off as tolerated # hypotension - unclear etiology - no evidence of infection, has no chest CT findings of infection, UA negative, no soft tissue infection - has no headache, or meningeal evidence of infection - responded to IV fluids - will monitor off of antibiotics at this time as there is no source of infection # diabetes - hold metformin - start low-dose sliding scale insulin # bipolar disorder - continue home medications # hypothyroidism - continue levothyroxine # hypertension - will hold off lisinopril at this time as patient hypotensive - resume once blood pressure more stable # GERD - continue pantoprazole DVT prophylaxis: Lovenox
[2020-08-24] MEDS: Enoxaparin Sodium 40 MG/0.4 ML SYRINGE SUBCUT (21:50)
[2020-08-25] VITALS (12 sets, daily range): BP systolic 99–177; BP diastolic 54–84; PULSE 58–73; RESP 14–22; TEMP 36.4–36.9; O2SAT 90–98
[2020-08-25] MEDS: 0.9 % Sodium Chloride Flush 3 ML SYRINGE IVFLUSH ×4 (01:24→23:47)
[2020-08-25] MEDS: Omeprazole 20 MG CAPSULE.DR PO (06:50)
[2020-08-25 06:51] LABS: Glucose, Whole Blood 104 mg/dL (60-115)
[2020-08-25 06:58] LABS: MANUAL DIFF FLAG NO
[2020-08-25 07:02] LABS: Basophils Percent Auto 0.3 % (0-2); Eosinophils Absolute Auto 0.1 X10*3/uL (0.0-0.4); Eosinophils Percent Auto 1.3 % (0-4); Hematocrit 38.1 % (37-47); Hemoglobin 11.9 g/dl (12.0-16.0); Imm Gran Abs Auto 0.12 X10*3/uL (0.00-0.03); Imm Gran Pct Auto 1.1 % (0.0-0.4); Lymphocytes Absolute Auto 2.2 X10*3/uL (1.2-4.9); Lymphocytes Percent Auto 19.7 % (20-40); Mean Corpuscular HGB Conc 31.2 g/dl (31.0-35.0); Mean Corpuscular Hemoglobin 32.9 pg (27.0-33.0); Mean Corpuscular Volume 105.2 fL (80-98); Mean Platelet Volume 8.9 fL (9.4-12.3); Monocytes Absolute Auto 0.9 X10*3/uL (0.1-1.2); Monocytes Percent Auto 7.8 % (2-11); Neutrophils Absolute Auto 7.7 X10*3/uL (2.0-8.3); Neutrophils Percent Auto 69.8 % (45-73); Platelet Count 175 X10*3/uL (160-400); Red Blood Count 3.62 X10*6/uL (4.20-5.50); Red Cell Distribution Width 13.1 % (11.0-16.0)
[2020-08-25 07:35] LABS: Anion Gap 12 (12-20); Blood Urea Nitrogen 15 mg/dL (9-16); Calcium 8.2 mg/dL (8.4-10.2); Carbon Dioxide 23 mmol/L (22-29); Chloride 111 mmol/L (96-108); Creatinine Clr Calc Pharmacy 76.2; Estimated Glomerular Filt Rate > 60; Glucose Random 111 mg/dL (60-115); Potassium 4.3 mmol/L (3.3-5.1); Sodium 142 mmol/L (135-145)
--- NOTE | 2020-08-25 09:03 | PC.NURSE ---
physical therapy (Janet) at bedside with pt performing exercises with pt. pt ate 100% of breakfast.
[2020-08-25] MEDS: Metoprolol Succinate ER 25 MG TAB.ER.24H PO (09:09)
[2020-08-25] MEDS: Levothyroxine Sodium 100 MCG TABLET PO (09:10)
[2020-08-25] MEDS: Divalproex Sodium ER 500 MG TAB.ER.24H PO (09:10)
[2020-08-25] MEDS: Cholecalciferol (Vitamin D3) 25 MCG TABLET PO (09:11)
[2020-08-25] MEDS: Ascorbic Acid 500 MG TABLET PO (09:12)
[2020-08-25] MEDS: Ferrous Sulfate 324 MG TABLET.DR PO (09:13)
[2020-08-25] MEDS: Perphenazine 4 MG TABLET PO ×2 (09:14→21:04)
[2020-08-25] MEDS: risperiDONE 1 MG TABLET PO ×2 (09:14→21:02)
[2020-08-25] MEDS: Nystatin Powder 15 GM BOTTLE 1 APPL TOPICAL ×2 (09:16→21:10)
--- NOTE | 2020-08-25 09:45 | PC.NURSE ---
pt's a/o x 3 no sob/joanna noted skin pink warm dry speaks in full sentences. pt's daughter candido devi ([phone]) called [facility] [place] and was updated on pt status.
--- NOTE | 2020-08-25 10:05 | PC.NURSE ---
pt had complete bed/mary care. pt aware of plan of care for admission to hosp and that her daughter had called.
--- NOTE | 2020-08-25 10:18 | PC.NURSE ---
hosp (dr. morataya) at bedside, pt aware of plan of care for admission to hosp.
--- NOTE | 2020-08-25 10:26 | PC.NURSE ---
lungs - cta, abd soft and nt.
--- NOTE | 2020-08-25 10:45 | PC.NURSE ---
nurse to nurse given to margarito (rn), pt and pt's daughter that pt will be admitted and transfered to rm 446. pt's 02 sat 90% on r/a, 02 reapplied at 2l/m via n/c. 02 sat 98%, 02 decreased to 1l/m via n/c 96%. pt has moderate are of bruising/purple discoloration to inner aspect of l elbow. aware.
[2020-08-25 11:54] LABS: Glucose, Whole Blood 119 mg/dL (60-115)
--- NOTE | 2020-08-25 13:59 | HO.PM.IMPN ---
Subjective Subjective Date of Service: 08/25/20 Interval History: the patient was seen and evaluated this morning Laying in bed, feels comfortable , blood pressure better controlled, less oxygen requirement Denies any fever, chills or shortness of breath No reported other overnight events. Systemic review: No fever, chills or weakness No chest pain, palpitation Denies shortness of breath or coughing No abdominal pain, nausea or vomiting No urinary symptoms No any rash or wounds Physical Exam Vital Signs: Vital Signs: Last Vital Signs Temp 97.9 F 08/25/20 11:58 Pulse 68 08/25/20 11:58 Resp 22 H 08/25/20 11:58 BP 135/62 08/25/20 11:58 Pulse Ox 95 08/25/20 11:58 Body Mass Index 32.6 Const: Other: Constitutional : Alert, oriented, not in distress Neck : Normal inspection, Supple Cardiovascular : RRR, S1 S2, no lower extremity edema Respiratory : Good bilateral air entry, no crackles, wheezes or rhonchi Gastrointestinal: soft, lax, Normal bowel sounds, Non tender Skin : Warm/Dry, No rash Neurological : Alert & oriented x3, No focal deficit Objective Data Current Medications Generic Name Dose Route Start Last Admin Trade Name Freq PRN Reason Stop Dose Admin Acetaminophen 650 mg 08/24/20 20:30 Acetaminophen 325 Mg Tablet PO Q6H PRN Pain, Mild (Pain Scale 1-3) Ascorbic Acid 500 mg 08/24/20 09:00 08/25/20 09:12 Ascorbic Acid 500 Mg Tablet PO 500 mg DAILY FRANCINE Administration Atorvastatin Calcium 40 mg 08/23/20 23:30 08/24/20 21:47 Atorvastatin Calcium 40 Mg Tablet PO 40 mg BEDTIME FRANCINE Administration Divalproex Sodium 500 mg 08/24/20 09:00 08/25/20 09:10 Divalproex Sodium Er 500 Mg Tab.Er.24h PO 500 mg DAILY FRANCINE Administration Divalproex Sodium 1,000 mg 08/23/20 23:30 08/24/20 21:49 Divalproex Sodium Er 500 Mg Tab.Er.24h PO 1,000 mg BEDTIME FRANCINE Administration Docusate Sodium 100 mg 08/24/20 20:30 Docusate Sodium 100 Mg Capsule PO DAILY PRN Constipation Enoxaparin Sodium 40 mg 08/24/20 20:30 08/24/20 21:50 Enoxaparin Sodium 40 Mg/0.4 Ml Syringe SUBCUT 40 mg Q24H FRANCINE Administration Ferrous Sulfate 324 mg 08/24/20 09:00 08/25/20 09:13 Ferrous Sulfate 324 Mg Tablet. PO 324 mg DAILY FRANCINE Administration Insulin Human Lispro 0 unit 08/25/20 07:30 08/25/20 11:52 Insulin Lispro 100 Unit/Ml 3 Ml Vial SUBCUT Not Given QIDACHS [facility] Protocol Levothyroxine Sodium 100 mcg 08/24/20 09:00 08/25/20 09:10 Levothyroxine Sodium 100 Mcg Tablet PO 100 mcg DAILY FRANCINE Administration Lisinopril 2.5 mg 08/24/20 09:00 08/24/20 09:11 Lisinopril 2.5 Mg Tablet PO 2.5 mg DAILY [facility] Administration Protocol Metformin HCl 500 mg 08/23/20 23:30 08/24/20 09:11 Metformin Hcl Er 500 Mg Tab.Er.24h PO 500 mg BID FRANCINE Administration Metoprolol Succinate 25 mg 08/24/20 09:00 08/25/20 09:09 Metoprolol Succinate Er 25 Mg Tab.Er.24h PO 25 mg DAILY [facility] Administration Protocol Nystatin 1 appl 08/23/20 23:30 08/25/20 09:16 Nystatin Powder 15 Gm Bottle TOPICAL 1 appl BID [facility] Administration Protocol Omeprazole 20 mg 08/24/20 06:30 08/25/20 06:50 Omeprazole 20 Mg Capsule. PO 20 mg DAILY@0630 FRANCINE Administration Ondansetron HCl 4 mg 08/24/20 20:30 Ondansetron Hcl 4 Mg/2 Ml Vial IVPUSH Q8H PRN Nausea and Vomiting Oxybutynin Chloride 10 mg 08/24/20 09:00 08/25/20 09:11 Oxybutynin Chloride Er 5 Mg Tab.Er.24 PO 10 mg DAILY FRANCINE Administration Perphenazine 4 mg 08/23/20 23:30 08/25/20 09:14 Perphenazine 4 Mg Tablet PO 4 mg BID [facility] Administration Pharmacy Consult 1 each 08/23/20 21:44 Consult Rx Perform Med Rec MISCELLANE ONCE PRN Consult order Risperidone 1 mg 08/23/20 23:30 08/25/20 09:14 Risperidone 1 Mg Tablet PO 1 mg BID FRANCINE Administration Sodium Chloride 3 ml 08/25/20 00:00 08/25/20 09:15 0.9 % Sodium Chloride Flush 3 Ml Syringe IVFLUSH 3 ml QSHIFT FRANCINE Administration Vitamin D 25 mcg 08/24/20 09:00 08/25/20 09:11 Cholecalciferol (Vitamin D3) 25 Mcg Tablet PO 25 mcg DAILY FRANCINE Administration Labs CBC & Chem 7: 08/25/20 06:54 08/25/20 06:54 Assessment and Plan (1) Chest pain, non-cardiac: Status: Acute (2) Leukocytosis: Status: Acute (3) Hypotension: Status: Acute (4) Hypoxia: Status: Acute (5) Diabetes mellitus: Status: Acute Assessment and Plan: This is a 75-year-old female with past medical history as above who presents to the hospital initially chest pain, subsequently found to be hypoxic as well as having hypotension. chest pain Atypical, reproducible, likely costochondritis negative high sensitivity troponin No ST or T-wave changes on EKG shows no evidence of ACS on telemetry Hypoxia unclear etiology, patient has no history of COPD chest x-ray negative for pneumonia chest CT angiogram negative for PE or any other abnormality, nodules chronic and benign COVID-19, flu, RSV serology negative Could be other viral illness Wean down oxygen as tolerated hypotension Resolved unclear etiology no evidence of infection responded to IV fluids Hold off of antibiotics at this time as there is no source of infection Type 2 diabetes hold metformin Continue low-dose sliding scale insulin bipolar disorder continue home medications hypothyroidism continue levothyroxine hypertension will hold off lisinopril at this time as patient hypotensive resume once blood pressure more stable GERD continue pantoprazole DVT prophylaxis Lovenox
[2020-08-25 16:32] LABS: Glucose, Whole Blood 156 mg/dL (60-115)
[2020-08-25] MEDS: Insulin Lispro 100 UNIT/ML 3 ML VIAL SUBCUT ×2 (16:51→21:05)
[2020-08-25 20:05] LABS: Glucose, Whole Blood 179 mg/dL (60-115)
[2020-08-25] MEDS: Atorvastatin Calcium 40 MG TABLET PO (21:02)
[2020-08-25] MEDS: Divalproex Sodium ER 500 MG TAB.ER.24H 1000 MG PO (21:04)
[2020-08-25] MEDS: Enoxaparin Sodium 40 MG/0.4 ML SYRINGE SUBCUT (21:05)
[2020-08-26] VITALS (9 sets, daily range): BP systolic 118–134; BP diastolic 62–73; PULSE 52–75; RESP 18–20; TEMP 36.1–37.2; O2SAT 92–95; BMI 32.6
[2020-08-26] MEDS: Docusate Sodium 100 MG CAPSULE PO (00:07)
[2020-08-26] MEDS: Omeprazole 20 MG CAPSULE.DR PO (05:40)
[2020-08-26 06:50] LABS: Hematocrit 35.1 % (37-47); Mean Corpuscular HGB Conc 31.3 g/dl (31.0-35.0); Mean Corpuscular Hemoglobin 32.6 pg (27.0-33.0); Mean Corpuscular Volume 104.2 fL (80-98); Mean Platelet Volume 9.4 fL (9.4-12.3); Platelet Count 191 X10*3/uL (160-400); Red Blood Count 3.37 X10*6/uL (4.20-5.50); Red Cell Distribution Width 12.9 % (11.0-16.0); White Blood Count 8.4 X10*3/uL (4.8-10.8)
[2020-08-26 07:03] LABS: Anion Gap 11 (12-20); Blood Urea Nitrogen 19 mg/dL (9-16); Carbon Dioxide 26 mmol/L (22-29); Chloride 109 mmol/L (96-108); Creatinine Clr Calc Pharmacy 73.3; Estimated Glomerular Filt Rate > 60; Glucose Random 108 mg/dL (60-115); Sodium 142 mmol/L (135-145)
[2020-08-26 07:29] LABS: Glucose, Whole Blood 122 mg/dL (60-115)
[2020-08-26] MEDS: Ascorbic Acid 500 MG TABLET PO (09:09)
[2020-08-26] MEDS: Ferrous Sulfate 324 MG TABLET.DR PO (09:09)
[2020-08-26] MEDS: Metoprolol Succinate ER 25 MG TAB.ER.24H PO (09:09)
[2020-08-26] MEDS: Divalproex Sodium ER 500 MG TAB.ER.24H PO (09:09)
[2020-08-26] MEDS: Cholecalciferol (Vitamin D3) 25 MCG TABLET PO (09:09)
[2020-08-26] MEDS: Perphenazine 4 MG TABLET PO ×2 (09:09→20:43)
[2020-08-26] MEDS: Levothyroxine Sodium 100 MCG TABLET PO (09:09)
[2020-08-26] MEDS: risperiDONE 1 MG TABLET PO ×2 (09:09→20:43)
[2020-08-26] MEDS: 0.9 % Sodium Chloride Flush 3 ML SYRINGE IVFLUSH ×2 (09:09→16:08)
[2020-08-26] MEDS: Nystatin Powder 15 GM BOTTLE 1 APPL TOPICAL ×2 (09:10→20:41)
[2020-08-26 11:42] LABS: Glucose, Whole Blood 129 mg/dL (60-115)
--- NOTE | 2020-08-26 14:10 | HO.PM.IMPN ---
Subjective Subjective Date of Service: 08/26/20 Interval History: the patient was seen and evaluated this morning Laying in bed, feels comfortable , blood pressure better controlled Weaned off oxygen this morning Denies any fever, chills or shortness of breath No reported other overnight events. Systemic review: No fever, chills or weakness No chest pain, palpitation Denies shortness of breath or coughing No abdominal pain, nausea or vomiting No urinary symptoms No any rash or wounds Physical Exam Vital Signs: Vital Signs: Last Vital Signs Temp 98.9 F 08/26/20 12:00 Pulse 63 08/26/20 12:00 Resp 20 08/26/20 12:00 BP 123/65 08/26/20 12:00 Pulse Ox 92 08/26/20 12:00 Body Mass Index 32.6 Const: Other: Constitutional : Alert, oriented, not in distress Neck : Normal inspection, Supple Cardiovascular : RRR, S1 S2, no lower extremity edema Respiratory : Good bilateral air entry, no crackles, wheezes or rhonchi Gastrointestinal: soft, lax, Normal bowel sounds, Non tender Skin : Warm/Dry, No rash Neurological : Alert & oriented x3, No focal deficit Objective Data Current Medications Generic Name Dose Route Start Last Admin Trade Name Freq PRN Reason Stop Dose Admin Acetaminophen 650 mg 08/24/20 20:30 Acetaminophen 325 Mg Tablet PO Q6H PRN Pain, Mild (Pain Scale 1-3) Ascorbic Acid 500 mg 08/24/20 09:00 08/26/20 09:09 Ascorbic Acid 500 Mg Tablet PO 500 mg DAILY [facility] Administration Atorvastatin Calcium 40 mg 08/23/20 23:30 08/25/20 21:02 Atorvastatin Calcium 40 Mg Tablet PO 40 mg BEDTIME [facility] Administration Divalproex Sodium 500 mg 08/24/20 09:00 08/26/20 09:09 Divalproex Sodium Er 500 Mg Tab.Er.24h PO 500 mg DAILY [facility]INE Administration Divalproex Sodium 1,000 mg 08/23/20 23:30 08/25/20 21:04 Divalproex Sodium Er 500 Mg Tab.Er.24h PO 1,000 mg BEDTIME [facility]INE Administration Docusate Sodium 100 mg 08/24/20 20:30 08/26/20 00:07 Docusate Sodium 100 Mg Capsule PO 100 mg DAILY PRN Administration Constipation Enoxaparin Sodium 40 mg 08/24/20 20:30 08/25/20 21:05 Enoxaparin Sodium 40 Mg/0.4 Ml Syringe SUBCUT 40 mg Q24H [facility]INE Administration Ferrous Sulfate 324 mg 08/24/20 09:00 08/26/20 09:09 Ferrous Sulfate 324 Mg Tablet. PO 324 mg DAILY [facility] Administration Insulin Human Lispro 0 unit 08/25/20 07:30 08/26/20 11:44 Insulin Lispro 100 Unit/Ml 3 Ml Vial SUBCUT Not Given QIDACHS [facility] Protocol Levothyroxine Sodium 100 mcg 08/24/20 09:00 08/26/20 09:09 Levothyroxine Sodium 100 Mcg Tablet PO 100 mcg DAILY [facility] Administration Lisinopril 2.5 mg 08/24/20 09:00 08/24/20 09:11 Lisinopril 2.5 Mg Tablet PO 2.5 mg DAILY [facility] Administration Protocol Metformin HCl 500 mg 08/23/20 23:30 08/24/20 09:11 Metformin Hcl Er 500 Mg Tab.Er.24h PO 500 mg BID [facility]INE Administration Metoprolol Succinate 25 mg 08/24/20 09:00 08/26/20 09:09 Metoprolol Succinate Er 25 Mg Tab.Er.24h PO 25 mg DAILY [facility]INE Administration Protocol Nystatin 1 appl 08/23/20 23:30 08/26/20 09:10 Nystatin Powder 15 Gm Bottle TOPICAL 1 appl BID FRANCINE Administration Protocol Omeprazole 20 mg 08/24/20 06:30 08/26/20 05:40 Omeprazole 20 Mg Capsule. PO 20 mg DAILY@0630 [facility] Administration Ondansetron HCl 4 mg 08/24/20 20:30 Ondansetron Hcl 4 Mg/2 Ml Vial IVPUSH Q8H PRN Nausea and Vomiting Oxybutynin Chloride 10 mg 08/24/20 09:00 08/26/20 09:09 Oxybutynin Chloride Er 5 Mg Tab.Er.24 PO 10 mg DAILY [facility]INE Administration Perphenazine 4 mg 08/23/20 23:30 08/26/20 09:09 Perphenazine 4 Mg Tablet PO 4 mg BID FR[facility]INE Administration Pharmacy Consult 1 each 08/23/20 21:44 Consult Rx Perform Med Rec MISCELLANE ONCE PRN Consult order Risperidone 1 mg 08/23/20 23:30 08/26/20 09:09 Risperidone 1 Mg Tablet PO 1 mg BID FR[facility]INE Administration Sodium Chloride 3 ml 03/11/21 00:00 08/26/20 09:09 0.9 % Sodium Chloride Flush 3 Ml Syringe IVFLUSH 3 ml QSHIFT FRANCINE Administration Vitamin D 25 mcg 08/24/20 09:00 08/26/20 09:09 Cholecalciferol (Vitamin D3) 25 Mcg Tablet PO 25 mcg DAILY FRANCINE Administration Labs CBC & Chem 7: 08/26/20 05:19 08/26/20 05:19 Microbiology Microbiology Results: Microbiology 08/24/20 16:52 Blood - Venous Blood Culture - Preliminary No growth after 24 hours. 08/24/20 16:52 Blood - Venous Blood Culture - Preliminary No growth after 24 hours. Assessment and Plan (1) Chest pain, non-cardiac: Status: Acute (2) Leukocytosis: Status: Acute (3) Hypotension: Status: Acute (4) Hypoxia: Status: Acute (5) Diabetes mellitus: Status: Acute Assessment and Plan: This is a 75-year-old female with past medical history as above who presents to the hospital initially chest pain, subsequently found to be hypoxic as well as having hypotension. Physical deconditioning Evaluated by PT with recommendation for STR Pending placement chest pain Resolved, Atypical, reproducible, likely costochondritis negative high sensitivity troponin No ST or T-wave changes on EKG shows no evidence of ACS on telemetry Hypoxia unclear etiology, patient has no history of COPD chest x-ray negative for pneumonia chest CT angiogram negative for PE or any other abnormality, nodules chronic and benign COVID-19, flu, RSV serology negative Could be other viral illness Weaned off the oxygen completely hypotension Resolved unclear etiology no evidence of infection responded to IV fluids Type 2 diabetes hold metformin Continue low-dose sliding scale insulin bipolar disorder continue home medications hypothyroidism continue levothyroxine hypertension will hold off lisinopril at this time as patient hypotensive resume once blood pressure more stable GERD continue pantoprazole DVT prophylaxis Lovenox
--- NOTE | 2020-08-26 14:24 | MHC.CM.PN ---
DP to STR. [employer] is going for auth gap exception >3 denials. Anticipate that auth will be obtain later today. MD updated. Pt may DC later or tomorrow. CM will follow.
[2020-08-26 16:40] LABS: Glucose, Whole Blood 159 mg/dL (60-115)
[2020-08-26] MEDS: Insulin Lispro 100 UNIT/ML 3 ML VIAL SUBCUT ×2 (16:46→20:41)
[2020-08-26 20:16] LABS: Glucose, Whole Blood 171 mg/dL (60-115)
[2020-08-26] MEDS: Enoxaparin Sodium 40 MG/0.4 ML SYRINGE SUBCUT (20:42)
[2020-08-26] MEDS: Divalproex Sodium ER 500 MG TAB.ER.24H 1000 MG PO (20:42)
[2020-08-26] MEDS: Atorvastatin Calcium 40 MG TABLET PO (20:43)
[2020-08-27] VITALS (7 sets, daily range): BP systolic 111–146; BP diastolic 58–78; PULSE 55–85; RESP 18–26; TEMP 35.6–36.8; O2SAT 91–97
[2020-08-27] MEDS: 0.9 % Sodium Chloride Flush 3 ML SYRINGE IVFLUSH ×4 (00:08→23:03)
[2020-08-27] MEDS: Omeprazole 20 MG CAPSULE.DR PO (06:03)
[2020-08-27 07:14] LABS: Glucose, Whole Blood 122 mg/dL (60-115)
[2020-08-27] MEDS: Ferrous Sulfate 324 MG TABLET.DR PO (08:23)
[2020-08-27] MEDS: Levothyroxine Sodium 100 MCG TABLET PO (08:23)
[2020-08-27] MEDS: Perphenazine 4 MG TABLET PO ×2 (08:24→20:03)
[2020-08-27] MEDS: Cholecalciferol (Vitamin D3) 25 MCG TABLET PO (08:24)
[2020-08-27] MEDS: Metoprolol Succinate ER 25 MG TAB.ER.24H PO (08:25)
[2020-08-27] MEDS: risperiDONE 1 MG TABLET PO ×2 (08:25→20:03)
[2020-08-27] MEDS: Divalproex Sodium ER 500 MG TAB.ER.24H PO (08:26)
[2020-08-27] MEDS: Nystatin Powder 15 GM BOTTLE 1 APPL TOPICAL ×2 (08:27→20:07)
[2020-08-27] MEDS: Ascorbic Acid 500 MG TABLET PO (08:28)
[2020-08-27] MEDS: Apixaban 5 MG TABLET PO ×2 (11:11→20:03)
--- NOTE | 2020-08-27 11:24 | P.PNIM_ITS ---
Subjective Subjective Date of Service: 08/27/20 Interval History: the patient was seen and evaluated this morning Laying in bed, feels comfortable , blood pressure better controlled Noted to have episodes of atrial fibrillation on telemetry Denies any fever, chills or shortness of breath No reported other overnight events. Systemic review: No fever, chills or weakness No chest pain, reports feeling palpitations overnight Denies shortness of breath or coughing No abdominal pain, nausea or vomiting No urinary symptoms No any rash or wounds Physical Exam Vital Signs: Vital Signs: Last Vital Signs Temp 96.3 F L 08/27/20 08:00 Pulse 68 08/27/20 08:25 Resp 26 H 08/27/20 08:00 BP 127/73 08/27/20 08:25 Pulse Ox 92 08/27/20 08:00 Body Mass Index 32.6 Const: Other: Constitutional : Alert, oriented, not in distress Neck : Normal inspection, Supple Cardiovascular : RRR, S1 S2, no lower extremity edema Respiratory : Good bilateral air entry, no crackles, wheezes or rhonchi Gastrointestinal: soft, lax, Normal bowel sounds, Non tender Skin : Warm/Dry, No rash Neurological : Alert & oriented x3, No focal deficit Objective Data Current Medications Generic Name Dose Route Start Last Admin Trade Name Freq PRN Reason Stop Dose Admin Acetaminophen 650 mg 08/24/20 20:30 Acetaminophen 325 Mg Tablet PO Q6H PRN Pain, Mild (Pain Scale 1-3) Apixaban 5 mg 08/27/20 10:50 08/27/20 11:11 Apixaban 5 Mg Tablet PO 5 mg BID FRANCINE Administration Ascorbic Acid 500 mg 08/24/20 09:00 08/27/20 08:28 Ascorbic Acid 500 Mg Tablet PO 500 mg DAILY FRANCINE Administration Atorvastatin Calcium 40 mg 08/23/20 23:30 08/26/20 20:43 Atorvastatin Calcium 40 Mg Tablet PO 40 mg BEDTIME FR[facility]INE Administration Divalproex Sodium 500 mg 08/24/20 09:00 08/27/20 08:26 Divalproex Sodium Er 500 Mg Tab.Er.24h PO 500 mg DAILY FR[facility]INE Administration Divalproex Sodium 1,000 mg 08/23/20 23:30 08/26/20 20:42 Divalproex Sodium Er 500 Mg Tab.Er.24h PO 1,000 mg BEDTIME FR[facility]INE Administration Docusate Sodium 100 mg 08/24/20 20:30 08/26/20 00:07 Docusate Sodium 100 Mg Capsule PO 100 mg DAILY PRN Administration Constipation Ferrous Sulfate 324 mg 08/24/20 09:00 08/27/20 08:23 Ferrous Sulfate 324 Mg Tablet. PO 324 mg DAILY [facility]ANCINE Administration Insulin Human Lispro 0 unit 08/25/20 07:30 08/27/20 07:36 Insulin Lispro 100 Unit/Ml 3 Ml Vial SUBCUT Not Given QIDACHS [facility] Protocol Levothyroxine Sodium 100 mcg 08/24/20 09:00 08/27/20 08:23 Levothyroxine Sodium 100 Mcg Tablet PO 100 mcg DAILY FRANCINE Administration Lisinopril 2.5 mg 08/24/20 09:00 08/24/20 09:11 Lisinopril 2.5 Mg Tablet PO 2.5 mg DAILY [facility] Administration Protocol Metoprolol Succinate 50 mg 08/28/20 09:00 Metoprolol Succinate Er 50 Mg Tab.Er.24h PO DAILY [facility] Protocol Nystatin 1 appl 08/23/20 23:30 08/27/20 08:27 Nystatin Powder 15 Gm Bottle TOPICAL 1 appl BID [facility] Administration Protocol Omeprazole 20 mg 08/24/20 06:30 08/27/20 06:03 Omeprazole 20 Mg Capsule. PO 20 mg DAILY@0630 [facility] Administration Ondansetron HCl 4 mg 08/24/20 20:30 Ondansetron Hcl 4 Mg/2 Ml Vial IVPUSH Q8H PRN Nausea and Vomiting Oxybutynin Chloride 10 mg 08/24/20 09:00 08/27/20 08:24 Oxybutynin Chloride Er 5 Mg Tab.Er.24 PO 10 mg DAILY [facility]INE Administration Perphenazine 4 mg 08/23/20 23:30 08/27/20 08:24 Perphenazine 4 Mg Tablet PO 4 mg BID [facility] Administration Pharmacy Consult 1 each 08/23/20 21:44 Consult Rx Perform Med Rec MISCELLANE ONCE PRN Consult order Risperidone 1 mg 08/23/20 23:30 08/27/20 08:25 Risperidone 1 Mg Tablet PO 1 mg BID FRANCINE Administration Sodium Chloride 3 ml 08/25/20 00:00 08/27/20 07:35 0.9 % Sodium Chloride Flush 3 Ml Syringe IVFLUSH 3 ml QSHIFT [facility] Administration Vitamin D 25 mcg 08/24/20 09:00 08/27/20 08:24 Cholecalciferol (Vitamin D3) 25 Mcg Tablet PO 25 mcg DAILY [facility]INE Administration Labs CBC & Chem 7: 08/26/20 05:19 08/26/20 05:19 Microbiology Microbiology Results: Microbiology 08/24/20 16:52 Blood - Venous Blood Culture - Preliminary No growth after 48 hours. 08/24/20 16:52 Blood - Venous Blood Culture - Preliminary No growth after 48 hours. Assessment and Plan (1) Chest pain, non-cardiac: Status: Acute (2) Leukocytosis: Status: Acute (3) Hypotension: Status: Acute (4) Hypoxia: Status: Acute (5) Diabetes mellitus: Status: Acute Assessment and Plan: This is a 75-year-old female with past medical history as above who presents to the hospital initially chest pain, subsequently found to be hypoxic as well as having hypotension. New onset atrial fibrillation Paroxysmal atrial fibrillation Noted during telemetry monitoring Could be associated with her hypotension and chest tightness at time of presentation Discussed need of anticoagulation with her and explained the side effects which the patient understand Started on Eliquis Increase metoprolol to 50 To check an echo To get cardiology consult Physical deconditioning Evaluated by PT with recommendation for STR Pending placement chest pain Resolved Atypical, reproducible which could be costochondritis negative high sensitivity troponin No ST or T-wave changes on EKG shows no evidence of ACS Hypoxia unclear etiology, patient has no history of COPD chest x-ray negative for pneumonia chest CT angiogram negative for PE COVID-19, flu, RSV serology negative Could be other viral illness or related to paroxysmal AFib Weaned off the oxygen completely hypotension Resolved unclear etiology but could be related to undiagnosed AFib responded to IV fluids Type 2 diabetes hold metformin Continue low-dose sliding scale insulin bipolar disorder continue home medications hypothyroidism continue levothyroxine hypertension will hold off lisinopril at this time as patient hypotensive resume once blood pressure more stable GERD continue pantoprazole DVT prophylaxis Lovenox
[2020-08-27 11:31] LABS: Glucose, Whole Blood 164 mg/dL (60-115)
[2020-08-27] MEDS: Insulin Lispro 100 UNIT/ML 3 ML VIAL SUBCUT ×2 (11:31→20:03)
--- NOTE | 2020-08-27 12:13 | P.CONCA_ITS ---
History of Present Illness History of Present Illness Date of Service: 08/27/20 Requesting physician: Janene Muller Chief complaint: CP, PAF Narrative: Pleasant 75-year-old female who presented with sharp left-sided chest pain and hypoxia. The chest pain was sharp in character on the left side of the chest and radiated to the back. This improved with Tylenol. EKG was benign. Troponins were negative. She also had CT pulmonary angiogram to rule out PE whi ch was negative. She was noticed to be hypoxic and continues to have saturation 91% on room air. I am not sure why she is hypoxic. She clinically does not have any heart failure symptoms or signs right now. On telemetry she was noted to have run of atrial fibrillation. This is new for her. She did not have any palpitations or any symptoms. She also has bigeminy on telemetry. Review of Systems Review of Systems: No symptoms Yes all other systems are reviewed and are negative PMFSH Past Medical History Medical History Acquired hypothyroidism Allergic rhinitis Anemia Benign essential hypertension Bipolar disorder Diabetes mellitus GERD without esophagitis High bilirubin History of vitamin D deficiency Hx of diabetes insipidus Hx of strabismus Hypertension Intertrigo Obesity (BMI 30-39.9) Pain of left lower extremity Pure hypercholesterolemia Family History Family History Father History of cerebral hemorrhage Mother History of cerebral hemorrhage Surgical History Surgical History History of eye surgery History of left breast biopsy Hx of cataract surgery (~07/2017) Hx of dilation and curettage Social History Social History Household Members: Spouse Housing: Apartment Do you presently have visiting nurse or other home services: Yes Alcohol intake: never Smoking Status: Former smoker Smoked in Last 30 Days: No Patient Interested in Nicotine Replacement: No Patient Given Instructions on How to Stop Smoking: No Second Hand Smoke Exposure: No Use of substances other than those prescribed or required for medical reasons: No Currently Displaying Signs/Symptoms of Drug Intoxication Withdrawal: No Have you been hit, kicked, punched, or otherwise hurt by someone within the past year? If so, by whom?: No Do you feel safe in your current relationship?: No Is there a partner from a previous relationship who is making you feel unsafe now?: No Are you made to feel afraid or neglected: No Advance Directives: Yes Advance Directives on File: Yes Advance Directives Date on File: 08/24/20 Do you have thoughts of harming others: None Do you have a plan to hurt others: No Plan Recently lost weight without trying: No service: No Current occupational status: retired Meds Allergies Allergy/AdvReac Type Severity Reaction Status Date / Time amoxicillin [Amoxicillin] Allergy Intermediate SWELLING, Verified 08/23/20 15:25 rash Sulfa (Sulfonamide Allergy Intermediate itching & Verified 08/23/20 15:25 Antibiotics) bruising codeine [CODEINE] Allergy Unknown RASH Verified 08/23/20 15:25 dicyclomine Allergy Unknown Unknown Verified 08/23/20 15:25 lidocaine [LIDOCAINE] Allergy Unknown UNKNOWN Verified 08/23/20 15:25 lithium [LITHIUM] AdvReac Severe NEPHROGENIC Verified 08/23/20 15:25 DIABETES INSIPIDUS meclizine [Meclizine] AdvReac Intermediate INCREASES Verified 08/23/20 15:25 DIZZINESS simvastatin [SIMVASTATIN] AdvReac Intermediate MYALGIAS Verified 08/23/20 15:25 metronidazole [METRONIDAZOLE] AdvReac Mild FLU LIKE Verified 08/23/20 15:25 SYMPTOMS acyclovir AdvReac Unknown Unknown Verified 08/23/20 15:25 Active Medications: Current Medications Generic Name Dose Route Start Last Admin Trade Name Freq PRN Reason Stop Dose Admin Acetaminophen 650 mg 08/24/20 20:30 Acetaminophen 325 Mg Tablet PO Q6H PRN Pain, Mild (Pain Scale 1-3) Apixaban 5 mg 08/27/20 10:50 08/27/20 11:11 Apixaban 5 Mg Tablet PO 5 mg BID FRANCINE Administration Ascorbic Acid 500 mg 08/24/20 09:00 08/27/20 08:28 Ascorbic Acid 500 Mg Tablet PO 500 mg DAILY FRANCINE Administration Atorvastatin Calcium 40 mg 08/23/20 23:30 08/26/20 20:43 Atorvastatin Calcium 40 Mg Tablet PO 40 mg BEDTIME FRANCINE Administration Divalproex Sodium 500 mg 08/24/20 09:00 08/27/20 08:26 Divalproex Sodium Er 500 Mg Tab.Er.24h PO 500 mg DAILY FR[facility]INE Administration Divalproex Sodium 1,000 mg 08/23/20 23:30 08/26/20 20:42 Divalproex Sodium Er 500 Mg Tab.Er.24h PO 1,000 mg BEDTIME FRANCINE Administration Docusate Sodium 100 mg 08/24/20 20:30 08/26/20 00:07 Docusate Sodium 100 Mg Capsule PO 100 mg DAILY PRN Administration Constipation Ferrous Sulfate 324 mg 08/24/20 09:00 08/27/20 08:23 Ferrous Sulfate 324 Mg Tablet. PO 324 mg DAILY FRANCINE Administration Insulin Human Lispro 0 unit 08/25/20 07:30 08/27/20 11:31 Insulin Lispro 100 Unit/Ml 3 Ml Vial SUBCUT 2 unit QIDACHS [facility] Administration Protocol Levothyroxine Sodium 100 mcg 08/24/20 09:00 08/27/20 08:23 Levothyroxine Sodium 100 Mcg Tablet PO 100 mcg DAILY FR[facility]INE Administration Lisinopril 2.5 mg 08/24/20 09:00 08/24/20 09:11 Lisinopril 2.5 Mg Tablet PO 2.5 mg DAILY [facility] Administration Protocol Metoprolol Succinate 50 mg 08/28/20 09:00 Metoprolol Succinate Er 50 Mg Tab.Er.24h PO DAILY [facility] Protocol Nystatin 1 appl 08/23/20 23:30 08/27/20 08:27 Nystatin Powder 15 Gm Bottle TOPICAL 1 appl BID [facility] Administration Protocol Omeprazole 20 mg 08/24/20 06:30 08/27/20 06:03 Omeprazole 20 Mg Capsule. PO 20 mg DAILY@0630 [facility] Administration Ondansetron HCl 4 mg 08/24/20 20:30 Ondansetron Hcl 4 Mg/2 Ml Vial IVPUSH Q8H PRN Nausea and Vomiting Oxybutynin Chloride 10 mg 08/24/20 09:00 08/27/20 08:24 Oxybutynin Chloride Er 5 Mg Tab.Er.24 PO 10 mg DAILY [facility] Administration Perphenazine 4 mg 08/23/20 23:30 08/27/20 08:24 Perphenazine 4 Mg Tablet PO 4 mg BID [facility] Administration Pharmacy Consult 1 each 08/23/20 21:44 Consult Rx Perform Med Rec MISCELLANE ONCE PRN Consult order Risperidone 1 mg 08/23/20 23:30 08/27/20 08:25 Risperidone 1 Mg Tablet PO 1 mg BID FRANCINE Administration Sodium Chloride 3 ml 08/25/20 00:00 08/27/20 07:35 0.9 % Sodium Chloride Flush 3 Ml Syringe IVFLUSH 3 ml QSHIFT FRANCINE Administration Vitamin D 25 mcg 08/24/20 09:00 08/27/20 08:24 Cholecalciferol (Vitamin D3) 25 Mcg Tablet PO 25 mcg DAILY [facility]INE Administration Home Medications Medication Instructions Recorded Confirmed Last Taken Type atorvastatin 40 mg tablet 40 mg PO BEDTIME tab 03/23/20 08/23/20 Unknown History cholecalciferol (vitamin D3) 25 25 mcg PO DAILY 03/23/20 08/23/20 Unknown History mcg (1,000 unit) tablet levothyroxine 100 mcg tablet 100 mcg PO DAILY 03/23/20 08/23/20 Unknown History lancing device with lancets kit #1 ea 05/11/20 08/25/20 Unknown History divalproex 1,000 mg PO BEDTIME 08/23/20 08/23/20 Unknown History divalproex 500 mg PO DAILY 08/23/20 08/23/20 Unknown History lisinopril 2.5 mg PO DAILY 08/23/20 08/23/20 Unknown History gabapentin 100 mg capsule 100 mg PO BEDTIME 08/27/20 Unknown History Physical Exam Vital Signs: Vital Signs: Last Vital Signs Temp 96.1 F L 08/27/20 12:00 Pulse 71 08/27/20 12:00 Resp 22 H 08/27/20 12:00 BP 112/74 08/27/20 12:00 Pulse Ox 91 L 08/27/20 12:00 Body Mass Index 32.6 GENERAL APPEARANCE: in no acute distress, well developed, well nourished. HEENT: unremarkable. HEAD: normocephalic, atraumatic. NECK/THYROID: no carotid bruit, no jugular venous distention. SKIN: no suspicious lesions, warm and dry. HEART: no murmurs, regular rate and rhythm, S1, S2 normal. LUNGS: clear to auscultation bilaterally. ABDOMEN: normal, bowel sounds present, soft, nontender, nondistended. EXTREMITIES: no clubbing, cyanosis, or edema. PERIPHERAL PULSES: equal. NEUROLOGIC: nonfocal, alert and oriented. PSYCH: mood/affect full range. Results Labs and Meds Result diagrams: 08/26/20 05:19 08/26/20 05:19 Lab results: Laboratory Results - last 24 hr 08/26/20 08/26/20 08/27/20 16:16 19:59 07:02 POC Glucose 159 H 171 H 122 H 08/27/20 11:16 POC Glucose 164 H Assessment and Plan (1) Hypoxia: Status: Acute (2) Hypotension: Status: Acute (3) PAF (paroxysmal atrial fibrillation): Status: Acute (4) Non-cardiac chest pain: Status: Acute Pleasant 75-year-old female who presented with sharp chest pain and hypoxia. She has been ruled out. No PEs found. The chest pain was likely noncardiac in origin. She is still somewhat hypoxic. I think this is likely atelectasis and probably will improve with incentive spirometry. PAF: start Eliquis. Continue Toprol XL. CP: ruled out. Sharp pain improved with tylenol. ECG benign. No further work up required. We are signing off. Thank you for allowing me to participate in the care of your patient. Please feel free to contact me if you have any questions.
[2020-08-27 16:05] LABS: Glucose, Whole Blood 130 mg/dL (60-115)
[2020-08-27 19:47] LABS: Glucose, Whole Blood 223 mg/dL (60-115)
[2020-08-27] MEDS: Atorvastatin Calcium 40 MG TABLET PO (20:03)
[2020-08-27] MEDS: Divalproex Sodium ER 500 MG TAB.ER.24H 1000 MG PO (20:03)
[2020-08-28 04:00] VITALS: BP 160/78; PULSE 62; RESP 18; TEMP 36.6; O2SAT 93
[2020-08-28] MEDS: Omeprazole 20 MG CAPSULE.DR PO (04:33)
[2020-08-28 08:00] VITALS: BP 137/67; PULSE 63; RESP 16; TEMP 36.6; O2SAT 93
[2020-08-28 08:00] LABS: Glucose, Whole Blood 142 mg/dL (60-115)
[2020-08-28] MEDS: Metoprolol Succinate ER 50 MG TAB.ER.24H PO (08:42)
[2020-08-28] MEDS: Ascorbic Acid 500 MG TABLET PO (08:43)
[2020-08-28] MEDS: Levothyroxine Sodium 100 MCG TABLET PO (08:43)
[2020-08-28] MEDS: Nystatin Powder 15 GM BOTTLE 1 APPL TOPICAL ×2 (08:43→22:14)
[2020-08-28] MEDS: Apixaban 5 MG TABLET PO ×2 (08:43→22:09)
[2020-08-28] MEDS: risperiDONE 1 MG TABLET PO ×2 (08:43→22:10)
[2020-08-28] MEDS: 0.9 % Sodium Chloride Flush 3 ML SYRINGE IVFLUSH ×3 (08:43→22:14)
[2020-08-28] MEDS: Cholecalciferol (Vitamin D3) 25 MCG TABLET PO (08:43)
[2020-08-28] MEDS: Ferrous Sulfate 324 MG TABLET.DR PO (08:43)
[2020-08-28] MEDS: Divalproex Sodium ER 500 MG TAB.ER.24H PO (08:43)
[2020-08-28] MEDS: Perphenazine 4 MG TABLET PO ×2 (08:43→22:10)
[2020-08-28] MEDS: Acetaminophen 325 MG TABLET 650 MG PO (09:57)
--- NOTE | 2020-08-28 10:00 | MHC.CM.PN ---
Pt medically cleared for DC however her insurance company did not respond to the request for STR authorization sent Saturday. Pt will DC tomorrow pending auth. Per previous notes, [facility] is first choice, [facility] 2nd. [facility] is offering pending auth.
--- NOTE | 2020-08-28 10:52 | HO.PM.IMPN ---
Subjective Subjective Date of Service: 08/28/20 Interval History: the patient was seen and evaluated this morning Laying in bed, feels comfortable Denies any fever, chills or shortness of breath No reported other overnight events. Systemic review: No fever, chills or weakness No chest pain, reports feeling palpitations overnight Denies shortness of breath or coughing No abdominal pain, nausea or vomiting No urinary symptoms No any rash or wounds Physical Exam Vital Signs: Vital Signs: Last Vital Signs Temp 97.9 F 08/28/20 08:00 Pulse 63 08/28/20 08:00 Resp 16 08/28/20 08:00 BP 137/67 08/28/20 08:00 Pulse Ox 93 08/28/20 08:00 Body Mass Index 32.6 Const: Other: Constitutional : Alert, oriented, not in distress Neck : Normal inspection, Supple Cardiovascular : RRR, S1 S2, no lower extremity edema Respiratory : Good bilateral air entry, no crackles, wheezes or rhonchi Gastrointestinal: soft, lax, Normal bowel sounds, Non tender Skin : Warm/Dry, No rash Neurological : Alert & oriented x3, No focal deficit Objective Data Current Medications Generic Name Dose Route Start Last Admin Trade Name Freq PRN Reason Stop Dose Admin Acetaminophen 650 mg 08/24/20 20:30 08/28/20 09:57 Acetaminophen 325 Mg Tablet PO 650 mg Q6H PRN Administration Pain, Mild (Pain Scale 1-3) Apixaban 5 mg 08/27/20 10:50 08/28/20 08:43 Apixaban 5 Mg Tablet PO 5 mg BID FRANCINE Administration Ascorbic Acid 500 mg 08/24/20 09:00 08/28/20 08:43 Ascorbic Acid 500 Mg Tablet PO 500 mg DAILY FRANCINE Administration Atorvastatin Calcium 40 mg 08/23/20 23:30 08/27/20 20:03 Atorvastatin Calcium 40 Mg Tablet PO 40 mg BEDTIME FRANCINE Administration Divalproex Sodium 500 mg 08/24/20 09:00 08/28/20 08:43 Divalproex Sodium Er 500 Mg Tab.Er.24h PO 500 mg DAILY FRANCINE Administration Divalproex Sodium 1,000 mg 08/23/20 23:30 08/27/20 20:03 Divalproex Sodium Er 500 Mg Tab.Er.24h PO 1,000 mg BEDTIME FRANCINE Administration Docusate Sodium 100 mg 08/24/20 20:30 08/26/20 00:07 Docusate Sodium 100 Mg Capsule PO 100 mg DAILY PRN Administration Constipation Ferrous Sulfate 324 mg 08/24/20 09:00 08/28/20 08:43 Ferrous Sulfate 324 Mg Tablet. PO 324 mg DAILY FRANCINE Administration Insulin Human Lispro 0 unit 08/25/20 07:30 08/28/20 08:41 Insulin Lispro 100 Unit/Ml 3 Ml Vial SUBCUT Not Given QIDACHS [facility] Protocol Levothyroxine Sodium 100 mcg 08/24/20 09:00 08/28/20 08:43 Levothyroxine Sodium 100 Mcg Tablet PO 100 mcg DAILY [facility] Administration Lisinopril 2.5 mg 08/24/20 09:00 08/24/20 09:11 Lisinopril 2.5 Mg Tablet PO 2.5 mg DAILY [facility] Administration Protocol Metoprolol Succinate 50 mg 08/28/20 09:00 08/28/20 08:42 Metoprolol Succinate Er 50 Mg Tab.Er.24h PO 50 mg DAILY [facility] Administration Protocol Nystatin 1 appl 08/23/20 23:30 08/28/20 08:43 Nystatin Powder 15 Gm Bottle TOPICAL 1 appl BID [facility] Administration Protocol Omeprazole 20 mg 08/24/20 06:30 08/28/20 04:33 Omeprazole 20 Mg Capsule. PO 20 mg DAILY@0630 [facility] Administration Ondansetron HCl 4 mg 08/24/20 20:30 Ondansetron Hcl 4 Mg/2 Ml Vial IVPUSH Q8H PRN Nausea and Vomiting Oxybutynin Chloride 10 mg 08/24/20 09:00 08/28/20 08:42 Oxybutynin Chloride Er 5 Mg Tab.Er.24 PO 10 mg DAILY [facility] Administration Perphenazine 4 mg 08/23/20 23:30 08/28/20 08:43 Perphenazine 4 Mg Tablet PO 4 mg BID [facility] Administration Pharmacy Consult 1 each 08/23/20 21:44 Consult Rx Perform Med Rec MISCELLANE ONCE PRN Consult order Risperidone 1 mg 08/23/20 23:30 08/28/20 08:43 Risperidone 1 Mg Tablet PO 1 mg BID FRANCINE Administration Sodium Chloride 3 ml 08/25/20 00:00 08/28/20 08:43 0.9 % Sodium Chloride Flush 3 Ml Syringe IVFLUSH 3 ml QSHIFT FRANCINE Administration Vitamin D 25 mcg 08/24/20 09:00 08/28/20 08:43 Cholecalciferol (Vitamin D3) 25 Mcg Tablet PO 25 mcg DAILY FRANCINE Administration Labs CBC & Chem 7: 08/26/20 05:19 08/26/20 05:19 Microbiology Microbiology Results: Microbiology 08/24/20 16:52 Blood - Venous Blood Culture - Preliminary No growth after 48 hours. 08/24/20 16:52 Blood - Venous Blood Culture - Preliminary No growth after 48 hours. Assessment and Plan (1) Chest pain, non-cardiac: Status: Acute (2) Leukocytosis: Status: Acute (3) Hypotension: Status: Acute (4) Hypoxia: Status: Acute (5) Diabetes mellitus: Status: Acute Assessment and Plan: This is a 75-year-old female with past medical history as above who presents to the hospital initially chest pain, subsequently found to be hypoxic as well as having hypotension. New onset atrial fibrillation Paroxysmal atrial fibrillation Noted during telemetry monitoring Could be associated with her hypotension and chest tightness at time of presentation Discussed need of anticoagulation with her and explained the side effects which the patient understand Continue Eliquis Continue metoprolol to 50 Echo ordered, can be done inpatient or outpatient cardiology consult, echo can be done inpatient or outpatient, continue metoprolol and Eliquis Physical deconditioning Evaluated by PT with recommendation for STR Pending placement chest pain Resolved Atypical, reproducible which could be costochondritis negative high sensitivity troponin No ST or T-wave changes on EKG shows no evidence of ACS Hypoxia unclear etiology, patient has no history of COPD chest x-ray negative for pneumonia chest CT angiogram negative for PE COVID-19, flu, RSV serology negative Could be other viral illness\atelectasis or related to paroxysmal AFib Weaned off the oxygen completely Continue incentive spirometry hypotension Resolved unclear etiology but could be related to undiagnosed AFib responded to IV fluids Type 2 diabetes hold metformin Continue low-dose sliding scale insulin bipolar disorder continue home medications hypothyroidism continue levothyroxine hypertension will hold off lisinopril at this time as patient hypotensive resume once blood pressure more stable GERD continue pantoprazole DVT prophylaxis Eliquis Dispo, pending insurance authorization for SNF placement.
[2020-08-28 11:31] VITALS: BP 111/64; PULSE 62; RESP 18; TEMP 36.4; O2SAT 94
[2020-08-28 11:33] LABS: Glucose, Whole Blood 137 mg/dL (60-115)
[2020-08-28 15:51] VITALS: BP 113/68; PULSE 60; RESP 18; TEMP 36.6; O2SAT 95
[2020-08-28 16:29] LABS: Glucose, Whole Blood 212 mg/dL (60-115)
[2020-08-28] MEDS: Insulin Lispro 100 UNIT/ML 3 ML VIAL SUBCUT ×2 (16:32→22:10)
[2020-08-28 19:35] VITALS: BP 110/80; PULSE 60; RESP 18; TEMP 36.8; O2SAT 92
[2020-08-28 20:02] LABS: Glucose, Whole Blood 168 mg/dL (60-115)
[2020-08-28] MEDS: Divalproex Sodium ER 500 MG TAB.ER.24H 1000 MG PO (22:10)
[2020-08-28] MEDS: Atorvastatin Calcium 40 MG TABLET PO (22:10)
[2020-08-29] VITALS: BP 139/71; PULSE 65; RESP 20; TEMP 37.1; O2SAT 95
[2020-08-29 04:00] VITALS: BP 109/60; PULSE 58; RESP 18; TEMP 36.6; O2SAT 94
[2020-08-29] MEDS: Omeprazole 20 MG CAPSULE.DR PO (06:17)
[2020-08-29 07:22] VITALS: BP 130/74; PULSE 58; RESP 18; TEMP 36.6; O2SAT 93
--- NOTE | 2020-08-29 07:30 | CA_ITS ---
Transthoracic Echocardiogram Patient (Last, First, Middle): Anu Chapa M Gender: Female Date of : 1945 Age: 75 Procedure Date: 08/29/2020 Procedure Type: [place]ansthoracic [place] [facility] [place]: 167.64 cm Weight: 91.63 kg BSA: 2.01 m2 Heart Rate: bpm BP: 109 / 60 mmHg Filler Shaker: Referring MD: Janene Muller MD Archivist Economic History: Geoff Lucero MD Symptoms: new onset Afib Study Quality: Fair ECG Rhythm: Sinus Conclusions: - 1. Normal LV systolic function with impaired relaxation filling pattern 2. Early aortic stenosis 3. Normal RV systolic pressure 4. No pericardial effusion Findings Left Ventricle Normal left ventricular size, thickness, and systolic function. The visually estimated ejection fraction is between 55-60%. Spectral Doppler is indicative of an impaired relaxation filling pattern. E/E prime ratio is between 8 and 15 consistent with indeterminate filling pressures. Right Ventricle Normal right ventricular cavity size and systolic function. Atria The left atrium is normal in size. There is no evidence of interatrial shunt. The right atrium is normal in size. Aortic Valve There is mild calcification of the aortic valve. There is mild thickening of the aortic valve. There is no aortic valve regurgitation. Mildly increased gradient across aortic valve with calculated valve area of 2.1 centimeters sq suggestive of early aortic stenosis Mitral Valve There is mild anterior and posterior mitral leaflet thickening. There is trace mitral valve regurgitation. There is no mitral valve stenosis. Pulmonic Valve The pulmonic valve was not well visualized. Tricuspid Valve Likely normal tricuspid valve structure and function. The right ventricular systolic pressure is normal. The right ventricular systolic pressure is 18 mmHg. Normal right atrial pressure. There is no evidence of pulmonary hypertension. Great Vessels All visible segments of the aorta are normal in size. The pulmonary artery was not well visualized. Venous The inferior vena cava is normal in size and collapses greater than 50% with inspiration. Pericardium/Pleural There is no evidence of pericardial effusion. Prior Study Comparison No significant change compared to prior study dated: 07/04/2017. Measurements 2D Linear Measurements IVSd: 1.04 0.6-0.9/0.6-1.0 cm LVIDd: 4.15 3.9-5.3/4.2-5.9 cm LVIDd Index: 2.06 2.4-3.2/2.2-3.1 cm/m2 LVIDs: 2.87 2.0-3.6 cm LVPWd: 1.04 0.7-1.1 cm Ao Root: 3.30 2.1-3.5 cm LA Diam: 2.40 2.7-3.8/3.0-4.0 cm LAIDs Index: 1.19 1.5-2.3 cm/m2 LV Mass: 177.14 67-162/88-224 g LV Mass Index: 88.13 43-95/49-115 g/m2 LVOT Diam: 2.10 3.0+(-)1.3 cm Mitral Valve MV Pk E: 0.63 MV PK A: 1.04 MV Decel Time: 237.00 E/A: 0.60 E'Medial: 5.22 E/E' Med: 12.10 PHT: 70.00 MVA PHT: 3.14 Decel [place]: 2.66 Aortic Valve AoV Pk Matthew: 1.80 AoV Mn Matthew: 1.08 AoV VTI: 0.36 AoV Pk Grad: 13.00 Aov Mn Grad: 6.00 DANIEL Cont.VTI: 2.14 LVOT LVOT Pk Matthew: 0.95 LVOT Mn Matthew: 0.59 LVOT VTI: 0.22 LVOT Pk Grad: 4.00 LVOT Mn Grad: 2.00 LVOT Diam: 2.10 LVOT Area: 3.46 Diastolic Function MV Pk E: 0.63 MV Pk A: 1.04 E/A: 0.60 E'Medial: 5.22 E/E' Med: 12.10 Tricuspid Valve TR Pk Matthew: 1.96 TR Pk Grad: 15.00 RA Press: 3.00 RVSP: 18.00 Great Vessels Aorta Ao Root-2D: 3.30 2.0-3.7 cm Ao Asc: 3.30 2.1-3.4 cm Pulmonary Valve PV Pk Matthew: 1.06 Peak PV Grad: 4.00 Updated in Other Vendor System with Status of Final Geoff Lucero MD electronically signed on 08/29/2020 1:39:03 PM with status of Final
[2020-08-29 07:44] LABS: Anion Gap 12 (12-20); Blood Urea Nitrogen 18 mg/dL (9-16); Calcium 8.4 mg/dL (8.4-10.2); Carbon Dioxide 28 mmol/L (22-29); Chloride 106 mmol/L (96-108); Creatinine Clr Calc Pharmacy 69.7; Estimated Glomerular Filt Rate > 60; Glucose Random 135 mg/dL (60-115); Potassium 4.6 mmol/L (3.3-5.1); Sodium 141 mmol/L (135-145)
[2020-08-29 07:53] LABS: Glucose, Whole Blood 137 mg/dL (60-115)
[2020-08-29] MEDS: 0.9 % Sodium Chloride Flush 3 ML SYRINGE IVFLUSH (08:36)
[2020-08-29] MEDS: Levothyroxine Sodium 100 MCG TABLET PO (08:39)
[2020-08-29] MEDS: risperiDONE 1 MG TABLET PO (08:39)
[2020-08-29] MEDS: Perphenazine 4 MG TABLET PO (08:39)
[2020-08-29] MEDS: Divalproex Sodium ER 500 MG TAB.ER.24H PO (08:39)
[2020-08-29] MEDS: Apixaban 5 MG TABLET PO (08:39)
[2020-08-29] MEDS: Cholecalciferol (Vitamin D3) 25 MCG TABLET PO (08:39)
[2020-08-29] MEDS: Ascorbic Acid 500 MG TABLET PO (08:39)
[2020-08-29] MEDS: Ferrous Sulfate 324 MG TABLET.DR PO (08:39)
[2020-08-29] MEDS: Metoprolol Succinate ER 50 MG TAB.ER.24H PO (08:39)
[2020-08-29] MEDS: Nystatin Powder 15 GM BOTTLE 1 APPL TOPICAL (08:40)
[2020-08-29 11:26] VITALS: BP 130/63; PULSE 63; RESP 20; TEMP 36.5; O2SAT 92
[2020-08-29 11:31] LABS: Glucose, Whole Blood 229 mg/dL (60-115)
[2020-08-29] MEDS: Insulin Lispro 100 UNIT/ML 3 ML VIAL SUBCUT (11:33)
--- NOTE | 2020-08-29 12:52 | P.PNCA_ITS ---
Subjective Subjective Date of Service: 08/29/20 <KAIDEN Jerry - Last Filed: 08/29/20 13:00> 08/29/20 <Geoff Lucero MD - Last Filed: 08/29/20 17:46> Principal diagnosis: atypical CP, hypoxia, paroxysmal afib <KAIDEN Jerry - Last Filed: 08/29/20 13:00> Interval history: Cardiology follow up for the above. Seen at 0830. Today she reports feeling better. No longer having chest pains or palpitation. No sob, not wearing O2. Reports weakness in legs and physical therapist at bedside to assist her wit h ambulation. Slept well. <KAIDEN Jerry - Last Filed: 08/29/20 13:00> Review of Systems Review of Systems as above <KAIDEN Jerry - Last Filed: 08/29/20 13:00> Yes all other systems are reviewed and are negative <KAIDEN Jerry - Last Filed: 08/29/20 13:00> Physical Exam Vital Signs: Last Vital Signs Temp 97.7 F 08/29/20 11:26 Pulse 63 08/29/20 11:26 Resp 20 08/29/20 11:26 BP 130/63 08/29/20 11:26 Pulse Ox 92 08/29/20 11:26 Body Mass Index 32.6 <KAIDEN Jerry - Last Filed: 08/29/20 13:00> Const General: cooperative, no acute distress, alert and awake <KAIDEN Jerry - Last Filed: 08/29/20 13:00> Orientation/consciousness: patient oriented x3 <KAIDEN Jerry - Last Filed: 08/29/20 13:00> Neck Neck: Yes normal visual inspection and Yes no JVD <KAIDEN Jerry Last Filed: 08/29/20 13:00> Resp Other: faint rales in each lower lobe that improve with deep inspiration and cough <KAIDEN Jerry - Last Filed: 08/29/20 13:00> Effort & Inspection: normal respiratory effort, able to speak in complete sentences and not labored <Kimberley Muse NP-C - Last Filed: 08/29/20 13:00> Auscultation: clear to auscultation bilaterally, no rhonchi and no wheezes <Kimberley MuseVITAC - Last Filed: 08/29/20 13:00> Cardio Palpation: normal PMI <Kimberley MuseVITAC - Last Filed: 08/29/20 13:00> Rate: regular rate <Kimberley MuseEJ-C - Last Filed: 08/29/20 13:00> Rhythm: regular rhythm <Kimberley MuseEJ-C - Last Filed: 08/29/20 13:00> Heart sounds: S1 normal heart sound present and S2 normal heart sound present <Kimberley MuseEJ-C - Last Filed: 08/29/20 13:00> Peripheral pulses: Peripheral pulses 2+ throughout <Kimberley YanesEJ chandler-C - Last Filed: 08/29/20 13:00> GI Inspection: Yes normal to inspection <Kimberley MuseEJ-C - Last Filed: 08/29/20 13:00> Neuro General: patient oriented x3 <Kimberley YanesEJ chandler-C - Last Filed: 08/29/20 13:00> Extrem General: Yes normal to inspection and No edema <Kimberley MuseEJ-C - Last Filed: 08/29/20 13:00> Results Labs and Meds Result diagrams: : 08/26/20 05:19 08/29/20 05:27 <Kimberley Durán EJ Muse-C - Last Filed: 08/29/20 13:00> Lab results: Laboratory Results - last 24 hr 08/28/20 08/28/20 08/29/20 16:23 19:58 05:27 Sodium 141 Potassium 4.6 Chloride 106 Carbon Dioxide 28 Anion Gap 12 BUN 18 H Creatinine 0.82 Estim Creat Clear Calc 69.7 Estimated GFR > 60 POC Glucose 212 H 168 H Random Glucose 135 H Calcium 8.4 08/29/20 08/29/20 07:20 11:14 Sodium Potassium Chloride Carbon Dioxide Anion Gap BUN Creatinine Estim Creat Clear Calc Estimated GFR POC Glucose 137 H 229 H Random Glucose Calcium <Kimberley YanesEJ chandler-C - Last Filed: 08/29/20 13:00> Progress Note: A&P Assessment and plan (1) PAF (paroxysmal atrial fibrillation): Status: Acute <KAIDEN Jerry - Last Filed: 08/29/20 13:00> Assessment and Plan: New finding of PAF this admit. Presented with atypical CP and palpitation. Converted back to SR. Tele now shows SR rates 50s- 60s. Last afib was 08/27. Her home Metoprolol xl had been increased to 50mg daily, from 25mg. She was started on Eliquis for anticoagulation. CHADVASc score 4. Reviewed shayne gnosis of PAF with her. Can be discharged from cardiology perspective. We will arrange for outpt Holter, echo, and cardiology follow up. <VITA Jerry - Last Filed: 08/29/20 13:00> New onset atrial fibrillation with symptoms of chest tightness most likely related to atrial fibrillation rapid ventricular response. She has no evidence of acute myocardial ischemia with prior normal cardiac catheterization with normal coronary arteries. Patient remains in sinus rhythm on increased metoprolol dose. If she has recurrent episodes of atrial fibrillation may require antiarrhythmic drug therapy. This will be pursued as outpatient. Echo was performed which showed normal LV systolic function with early aortic stenosis. Continue full oral anticoagulation with Eliquis. Patient can be discharged from cardiac perspective. Patient was seen and examined and case discussed with Kimberley Muse. <Geoff Lucero MD - Last Filed: 08/29/20 17:46> (2) Non-cardiac chest pain: Status: Acute <KAIDEN Jerry - Last Filed: 08/29/20 13:00> Assessment and Plan: No ACS. Hx cardiac cath 07/04/17 showing normal coronary arteries. <KAIDEN Jerry - Last Filed: 08/29/20 13:00> Fall Risk Details Current Medications: Current Medications Generic Name Dose Route Start Last Admin Trade Name Freq PRN Reason Stop Dose Admin Acetaminophen 650 mg 08/24/20 20:30 08/28/20 09:57 Acetaminophen 325 Mg Tablet PO 650 mg Q6H PRN Administration Pain, Mild (Pain Scale 1-3) Apixaban 5 mg 08/27/20 10:50 08/29/20 08:39 Apixaban 5 Mg Tablet PO 5 mg BID FRANCINE Administration Ascorbic Acid 500 mg 08/24/20 09:00 08/29/20 08:39 Ascorbic Acid 500 Mg Tablet PO 500 mg DAILY FRANCINE Administration Atorvastatin Calcium 40 mg 08/23/20 23:30 08/28/20 22:10 Atorvastatin Calcium 40 Mg Tablet PO 40 mg BEDTIME FRANCINE Administration Divalproex Sodium 500 mg 08/24/20 09:00 08/29/20 08:39 Divalproex Sodium Er 500 Mg Tab.Er.24h PO 500 mg DAILY FRANCINE Administration Divalproex Sodium 1,000 mg 08/23/20 23:30 08/28/20 22:10 Divalproex Sodium Er 500 Mg Tab.Er.24h PO 1,000 mg BEDTIME FRANCINE Administration Docusate Sodium 100 mg 08/24/20 20:30 08/26/20 00:07 Docusate Sodium 100 Mg Capsule PO 100 mg DAILY PRN Administration Constipation Ferrous Sulfate 324 mg 08/24/20 09:00 08/29/20 08:39 Ferrous Sulfate 324 Mg Tablet. PO 324 mg DAILY FRANCINE Administration Insulin Human Lispro 0 unit 08/25/20 07:30 08/29/20 11:33 Insulin Lispro 100 Unit/Ml 3 Ml Vial SUBCUT 4 unit QIDACHS [facility] Administration Protocol Levothyroxine Sodium 100 mcg 08/24/20 09:00 08/29/20 08:39 Levothyroxine Sodium 100 Mcg Tablet PO 100 mcg DAILY FRANCINE Administration Lisinopril 2.5 mg 08/24/20 09:00 08/24/20 09:11 Lisinopril 2.5 Mg Tablet PO 2.5 mg DAILY [facility]INE Administration Protocol Metoprolol Succinate 50 mg 08/28/20 09:00 08/29/20 08:39 Metoprolol Succinate Er 50 Mg Tab.Er.24h PO 50 mg DAILY [facility] Administration Protocol Nystatin 1 appl 08/23/20 23:30 08/29/20 08:40 Nystatin Powder 15 Gm Bottle TOPICAL 1 appl BID [facility] Administration Protocol Omeprazole 20 mg 08/24/20 06:30 08/29/20 06:17 Omeprazole 20 Mg Capsule. PO 20 mg DAILY@0630 [facility] Administration Ondansetron HCl 4 mg 08/24/20 20:30 Ondansetron Hcl 4 Mg/2 Ml Vial IVPUSH Q8H PRN Nausea and Vomiting Oxybutynin Chloride 10 mg 08/24/20 09:00 08/29/20 08:39 Oxybutynin Chloride Er 5 Mg Tab.Er.24 PO 10 mg DAILY [facility] Administration Perphenazine 4 mg 08/23/20 23:30 08/29/20 08:39 Perphenazine 4 Mg Tablet PO 4 mg BID FRANCINE Administration Pharmacy Consult 1 each 08/23/20 21:44 Consult Rx Perform Med Rec MISCELLANE ONCE PRN Consult order Risperidone 1 mg 08/23/20 23:30 08/29/20 08:39 Risperidone 1 Mg Tablet PO 1 mg BID FRANCINE Administration Sodium Chloride 3 ml 08/25/20 00:00 08/29/20 08:36 0.9 % Sodium Chloride Flush 3 Ml Syringe IVFLUSH 3 ml QSHIFT FRANCINE Administration Vitamin D 25 mcg 08/24/20 09:00 08/29/20 08:39 Cholecalciferol (Vitamin D3) 25 Mcg Tablet PO 25 mcg DAILY [facility]INE Administration <KAIDEN Jerry - Last Filed: 08/29/20 13:00> Time Spent With Patient Time: Total time spent is greater than 50% in coordination of care (as documented) at patient's floor/unit and/or counseling patient: 18 <KAIDEN Jerry - Last Filed: 08/29/20 13:00> Time with patient: 15 - 24 minutes <KAIDEN Jerry - Last Filed: 08/29/20 13:00>
--- NOTE | 2020-08-29 13:07 | P.DS_ITS ---
DS: Providers Provider Date of Service: 08/30/20 Date of admission: 08/24/20 20:30 Primary care physician: Brown Dickson MD Consults: 08/27/20 10:46 Consult to Cardiology Routine Consulting Provider: Hadley Aguilera Reason for consultation: Evaluation for new onset atrial fibrillation DS: Diagnosis Discharge Diagnosis (1) PAF (paroxysmal atrial fibrillation): Status: Acute (2) Non-cardiac chest pain: Status: Acute DS: Medications Discharge Medications Home Medications: Home Medications Medication Instructions Recorded Confirmed atorvastatin 40 mg tablet 40 mg PO BEDTIME tab 03/23/20 08/23/20 cholecalciferol (vitamin D3) 25 25 mcg PO DAILY 03/23/20 08/23/20 mcg (1,000 unit) tablet levothyroxine 100 mcg tablet 100 mcg PO DAILY 03/23/20 08/23/20 lancing device with lancets kit #1 ea 05/11/20 08/25/20 divalproex 1,000 mg PO BEDTIME 08/23/20 08/23/20 divalproex 500 mg PO DAILY 08/23/20 08/23/20 lisinopril 2.5 mg PO DAILY 08/23/20 08/23/20 gabapentin 100 mg capsule 100 mg PO BEDTIME 08/27/20 Previous Rx's Medication Instructions Recorded ascorbic acid (vitamin C) 500 mg 500 mg PO DAILY #90 tab 03/30/20 tablet pantoprazole 40 mg tablet,delayed 40 mg PO DAILY 30 Days #30 tab 04/25/20 release lancets 33 gauge #100 ea 05/11/20 oxybutynin chloride 5 mg tablet 5 mg PO BID #180 tab 06/28/20 ferrous fumarate 324 mg (106 mg 324 mg PO DAILY #100 tab 07/04/20 iron) tablet nystatin 100,000 unit/gram topical 1 appl TOPICAL BID 30 Days #15 g 07/22/20 powder perphenazine 4 mg tablet 4 mg PO BID #90 tab 08/18/20 metformin 500 mg tablet,extended 500 mg PO BID #180 tab 08/23/20 release 24 hr risperidone 1 mg tablet 1 mg PO BID #60 tab 08/28/20 apixaban [Eliquis] 5 mg PO BID #60 tab 08/29/20 metoprolol succinate 50 mg PO DAILY #30 tab 08/29/20 DS: Summary Hospital Course Hospital Course: HPI 75-year-old female with past medical history of diabetes, hypertension, hypothyroidism, bipolar disorder, GERD, who presents to the hospital initially on 08/23 with complaints of chest pain. Patient reports that she started developing midsternal heavy chest pain as 03/26, radiating to the back, that relieved with Tylenol, she went to bed woke up at 5:30 a.m. called her sister and her sister told her to go to the hospital. Patient reports that she no longer has chest pain at this time. While in the ED patient did desat to the 80s although patient reports no shortness of breath, no palpitations, she reports a minimal cough and sputum production for past 2 weeks. Denies any recent travel or sick contacts. She has not had any fever or chills. She also was hypotensive while in the ED. She reports that she has been eating and drinking okay but has been having diarrhea 2 to 3 times a day for the past 2-3 weeks. She has been taking Imodium. She denies any urinary symptoms, denies any lower extremity edema. While in the ED patient also developed hypotension but responded to IV fluid. She reports she has been eating and drinking well. On arrival Vitals were significant on initial admission for temp of 98.2?, heart rate of 71, respiratory rate of 20, blood pressure of 117/54, satting 92% on room air, she desatted to 85% while waiting in the ED, and blood pressure also dropped during this ED stay to 70s/40s responding to IV fluids Labs are significant for WBC count of 11.3, hemoglobin of 12.3, sodium of 139, potassium 3.9, BUN of 11, creatinine of 0.81, lactic acid of 2.2 which improved to 1.8, high sensitivity troponin negative, BNP of 71, COVID-19 negative, chest x-ray negative, chest CT angiogram negative for PE a showed pleural base nodule posterior left lower lobe with some central coarse calcification. And this has not changed in size since 2018. Consistent with benign nodule EKG showed normal sinus rhythm with no significant changes Hospital course 75-year-old female admitted with Acute hypoxic respiratory failure and chest pain, patient was started on oxygen supplementation etiology of hypoxia remains unclear CT chest shows no pulmonary embolism, COVID PCR was negative, viral panel was negative patient is known history of COPD hypoxia could be related to underlying COPD, patient was weaned off from oxygen and was saturating well on room air Chest pain was atypical likely secondary to AFib troponin remains flat ACS was ruled out, chest pain was resolved During the hospital course patient found to have New onset of atrial fibrillation cardiology was consulted started on Eliquis and Lopressor, heart rate remained stable, patient was discharged on Eliquis and Lopressor, echocardiogram was done shows EF 50-55% with normal left ventricular systolic function and mild diastolic dysfunction Patient has hypotension upon admission, amlodipine and lisinopril was held, hypotension was resolved, to amlodipine was stopped on discharge and lisinopril was continued Patient was evaluated by PT recommended short-term rehab, patient was stable discharged to short-term rehab on Lopressor and Eliquis Patient will need less than 30 days at short-term rehab Time Spent with Patient Time attestation: Total time spent providing and/or coordinating discharge services: Discharge coordination time: Greater than 30 minutes Physical Exam Vital Signs: Vital Signs: Last Vital Signs Temp 97.7 F 08/29/20 11:26 Pulse 63 08/29/20 11:26 Resp 20 08/29/20 11:26 BP 130/63 08/29/20 11:26 Pulse Ox 92 08/29/20 11:26 Body Mass Index 32.6 DS: Data Data Completed and Pending Labs on day of discharge: Laboratory Results - last 24 hr 08/28/20 08/28/20 08/29/20 16:23 19:58 05:27 Sodium 141 Potassium 4.6 Chloride 106 Carbon Dioxide 28 Anion Gap 12 BUN 18 H Creatinine 0.82 Estim Creat Clear Calc 69.7 Estimated GFR > 60 POC Glucose 212 H 168 H Random Glucose 135 H Calcium 8.4 08/29/20 08/29/20 07:20 11:14 Sodium Potassium Chloride Carbon Dioxide Anion Gap BUN Creatinine Estim Creat Clear Calc Estimated GFR POC Glucose 137 H 229 H Random Glucose Calcium Preliminary micro results at discharge 08/24/20 16:52 Blood Culture - Preliminary Blood - Venous No growth after 48 hours. 08/24/20 16:52 Blood Culture - Preliminary Blood - Venous No growth after 48 hours. Discharge Plan Discharge Anticipated Discharge Date/Time: 08/29/20 11:44 Patient Disposition: [facility] SNF Referrals: [facility] [Outside] Brown Dickson MD [Primary Care Provider] - 2 days Discharge Medications: New metoprolol succinate 50 mg Tablet Extended Release 24 Hr 50 mg PO DAILY Qty: 30 RF: 0 Eliquis 5 mg Tablet 5 mg PO BID Qty: 60 RF: 0 Continued ascorbic acid (vitamin C) [Vitamin C] 500 mg tablet 500 mg PO DAILY Qty: 90 RF: 3 oxybutynin chloride 5 mg tablet 5 mg PO BID Qty: 180 RF: 1 ferrous fumarate [Ferrocite] 324 mg (106 mg iron) tablet 324 mg PO DAILY Qty: 100 RF: 2 perphenazine 4 mg tablet 4 mg PO BID Qty: 90 RF: 0 metformin 500 mg tablet extended release 24 hr 500 mg PO BID Qty: 180 RF: 1 gabapentin 100 mg capsule 100 mg PO BEDTIME RF: 0 risperidone 1 mg tablet 1 mg PO BID Qty: 60 RF: 0 divalproex 500 mg tablet extended release 24 hr 500 mg PO DAILY RF: 0 divalproex 500 mg tablet extended release 24 hr 1,000 mg PO BEDTIME RF: 0 lisinopril 2.5 mg tablet 2.5 mg PO DAILY RF: 0 pantoprazole 40 mg tablet,delayed release (DR/EC) 40 mg PO DAILY 30 Days Qty: 30 RF: 3 nystatin 100,000 unit/gram powder 1 appl topical BID 30 Days Qty: 15 RF: 1 levothyroxine 100 mcg tablet 100 mcg PO DAILY RF: 0 atorvastatin 40 mg tablet 40 mg PO BEDTIME RF: 0 cholecalciferol (vitamin D3) 25 mcg (1,000 unit) tablet 25 mcg PO DAILY RF: 0 Discontinued metoprolol succinate 25 mg tablet extended release 24 hr 25 mg PO DAILY Qty: 90 RF: 1 amlodipine 5 mg tablet 5 mg PO DAILY Qty: 90 RF: 1 No Action (DME) lancets 33 gauge misc See Rx Instructions .ROUTE .MEDSUPPLY Qty: 100 RF: 0 (DME) lancing device with lancets [OneTouch Delica Lanc Device] Kit See Rx Instructions .ROUTE .MEDSUPPLY Qty: 1 RF: 0 Discharge Orders: Discharge Order (Routine); Ordered 08/29/20 Ordered By: Tarun Rizo Diet: diabetic diet Activity on Discharge: As tolerated Stand Alone Forms: Patient Portal Discharge page Care Plan Goals: see above Health Concerns: see above Plan of Treatment: see above Patient Instructions: Chest Pain (ED) Discharge Date/Time: 08/29/20 16:10
[2020-08-29 13:17] LABS: COVID-19 Test Negative (Negative); IDNOW Serial# 9DD0AD1C
--- NOTE | 2020-08-29 14:23 | PM.IMHP ---
[facility] Medical History Acquired hypothyroidism Allergic rhinitis Anemia Benign essential hypertension Bipolar disorder Diabetes mellitus GERD without esophagitis High bilirubin History of vitamin D deficiency Hx of diabetes insipidus Hx of strabismus Hypertension Intertrigo Obesity (BMI 30-39.9) Pain of left lower extremity Pure hypercholesterolemia Family History Father History of cerebral hemorrhage Mother History of cerebral hemorrhage Surgical History History of eye surgery History of left breast biopsy Hx of cataract surgery (~07/2017) Hx of dilation and curettage Social History Household Members: Spouse Housing: Apartment Do you presently have visiting nurse or other home services: Yes Alcohol intake: never Smoking Status: Former smoker Smoked in Last 30 Days: No Patient Interested in Nicotine Replacement: No Patient Given Instructions on How to Stop Smoking: No Second Hand Smoke Exposure: No Use of substances other than those prescribed or required for medical reasons: No Currently Displaying Signs/Symptoms of Drug Intoxication Withdrawal: No Have you been hit, kicked, punched, or otherwise hurt by someone within the past year? If so, by whom?: No Do you feel safe in your current relationship?: No Is there a partner from a previous relationship who is making you feel unsafe now?: No Are you made to feel afraid or neglected: No Advance Directives: Yes Advance Directives on File: Yes Advance Directives Date on File: 08/24/20 Do you have thoughts of harming others: None Do you have a plan to hurt others: No Plan Recently lost weight without trying: No service: No Current occupational status: retired Meds Allergies Allergy/AdvReac Type Severity Reaction Status Date / Time amoxicillin [Amoxicillin] Allergy Intermediate SWELLING, Verified 08/23/20 15:25 rash Sulfa (Sulfonamide Allergy Intermediate itching & Verified 08/23/20 15:25 Antibiotics) bruising codeine [CODEINE] Allergy Unknown RASH Verified 08/23/20 15:25 dicyclomine Allergy Unknown Unknown Verified 08/23/20 15:25 lidocaine [LIDOCAINE] Allergy Unknown UNKNOWN Verified 03/09/21 15:25 lithium [LITHIUM] AdvReac Severe NEPHROGENIC Verified 08/23/20 15:25 DIABETES INSIPIDUS meclizine [Meclizine] AdvReac Intermediate INCREASES Verified 08/23/20 15:25 DIZZINESS simvastatin [SIMVASTATIN] AdvReac Intermediate MYALGIAS Verified 08/23/20 15:25 metronidazole [METRONIDAZOLE] AdvReac Mild FLU LIKE Verified 08/23/20 15:25 SYMPTOMS acyclovir AdvReac Unknown Unknown Verified 08/23/20 15:25 Active Medications: Current Medications Generic Name Dose Route Start Last Admin Trade Name Freq PRN Reason Stop Dose Admin Acetaminophen 650 mg 08/24/20 20:30 08/28/20 09:57 Acetaminophen 325 Mg Tablet PO 650 mg Q6H PRN Administration Pain, Mild (Pain Scale 1-3) Apixaban 5 mg 08/27/20 10:50 08/29/20 08:39 Apixaban 5 Mg Tablet PO 5 mg BID FRANCINE Administration Ascorbic Acid 500 mg 08/24/20 09:00 08/29/20 08:39 Ascorbic Acid 500 Mg Tablet PO 500 mg DAILY FRANCINE Administration Atorvastatin Calcium 40 mg 08/23/20 23:30 08/28/20 22:10 Atorvastatin Calcium 40 Mg Tablet PO 40 mg BEDTIME FRANCINE Administration Divalproex Sodium 500 mg 08/24/20 09:00 08/29/20 08:39 Divalproex Sodium Er 500 Mg Tab.Er.24h PO 500 mg DAILY FRANCINE Administration Divalproex Sodium 1,000 mg 08/23/20 23:30 08/28/20 22:10 Divalproex Sodium Er 500 Mg Tab.Er.24h PO 1,000 mg BEDTIME FRANCINE Administration Docusate Sodium 100 mg 08/24/20 20:30 08/26/20 00:07 Docusate Sodium 100 Mg Capsule PO 100 mg DAILY PRN Administration Constipation Ferrous Sulfate 324 mg 08/24/20 09:00 08/29/20 08:39 Ferrous Sulfate 324 Mg Tablet.Dr PO 324 mg DAILY FRANCINE Administration Insulin Human Lispro 0 unit 08/25/20 07:30 08/29/20 11:33 Insulin Lispro 100 Unit/Ml 3 Ml Vial SUBCUT 4 unit QIDACHS FRANCINE Administration Protocol Levothyroxine Sodium 100 mcg 08/24/20 09:00 08/29/20 08:39 Levothyroxine Sodium 100 Mcg Tablet PO 100 mcg DAILY FRANCINE Administration Lisinopril 2.5 mg 08/24/20 09:00 08/24/20 09:11 Lisinopril 2.5 Mg Tablet PO 2.5 mg DAILY FRANCINE Administration Protocol Metoprolol Succinate 50 mg 08/28/20 09:00 08/29/20 08:39 Metoprolol Succinate Er 50 Mg Tab.Er.24h PO 50 mg DAILY FRANCINE Administration Protocol Nystatin 1 appl 08/23/20 23:30 08/29/20 08:40 Nystatin Powder 15 Gm Bottle TOPICAL 1 appl BID FRANCINE Administration Protocol Omeprazole 20 mg 08/24/20 06:30 08/29/20 06:17 Omeprazole 20 Mg Capsule.Dr PO 20 mg DAILY@0630 FRANCINE Administration Ondansetron HCl 4 mg 08/24/20 20:30 Ondansetron Hcl 4 Mg/2 Ml Vial IVPUSH Q8H PRN Nausea and Vomiting Oxybutynin Chloride 10 mg 08/24/20 09:00 08/29/20 08:39 Oxybutynin Chloride Er 5 Mg Tab.Er.24 PO 10 mg DAILY FRANCINE Administration Perphenazine 4 mg 08/23/20 23:30 08/29/20 08:39 Perphenazine 4 Mg Tablet PO 4 mg BID FRANCINE Administration Pharmacy Consult 1 each 08/23/20 21:44 Consult Rx Perform Med Rec MISCELLANE ONCE PRN Consult order Risperidone 1 mg 08/23/20 23:30 08/29/20 08:39 Risperidone 1 Mg Tablet PO 1 mg BID FRANCINE Administration Sodium Chloride 3 ml 08/25/20 00:00 08/29/20 08:36 0.9 % Sodium Chloride Flush 3 Ml Syringe IVFLUSH 3 ml QSHIFT [facility] Administration Vitamin D 25 mcg 08/24/20 09:00 08/29/20 08:39 Cholecalciferol (Vitamin D3) 25 Mcg Tablet PO 25 mcg DAILY FRANCINE Administration Home Medications Medication Instructions Recorded Confirmed Last Taken Type atorvastatin 40 mg tablet 40 mg PO BEDTIME tab 03/23/20 08/23/20 Unknown History cholecalciferol (vitamin D3) 25 25 mcg PO DAILY 03/23/20 08/23/20 Unknown History mcg (1,000 unit) tablet levothyroxine 100 mcg tablet 100 mcg PO DAILY 03/23/20 08/23/20 Unknown History lancing device with lancets kit #1 ea 05/11/20 08/25/20 Unknown History divalproex 1,000 mg PO BEDTIME 08/23/20 08/23/20 Unknown History divalproex 500 mg PO DAILY 08/23/20 08/23/20 Unknown History lisinopril 2.5 mg PO DAILY 08/23/20 08/23/20 Unknown History gabapentin 100 mg capsule 100 mg PO BEDTIME 08/27/20 Unknown History Physical Exam Vital Signs and Narrative: Vital Signs: Last Vital Signs Temp 97.7 F 08/29/20 11:26 Pulse 63 08/29/20 11:26 Resp 20 08/29/20 11:26 BP 130/63 08/29/20 11:26 Pulse Ox 92 08/29/20 11:26 Body Mass Index 32.6 Const: General: cooperative and no acute distress Orientation/consciousness: patient oriented x3 Eyes: General: appearance normal, both eyes and all related structures Resp: Effort & Inspection: normal respiratory effort Cardio: Other: Constitutional : Alert, oriented, not in distress Neck : Normal inspection, Supple Cardiovascular : RRR, S1 S2, no lower extremity edema Respiratory : Good bilateral air entry, no crackles, wheezes or rhonchi Gastrointestinal: soft, lax, Normal bowel sounds, Non tender Skin : Warm/Dry, No rash Neurological : Alert & oriented x3, No focal deficit Rate: regular rate Rhythm: regular rhythm GI: Palpation (GI): Soft to palpation Auscultation: normal bowel sounds Skin: General skin exam: no rashes or lesions noted Neuro: General: patient oriented x3 Cognition (Neuro): normal cognition Extrem: General: Yes normal to inspection and Yes no pedal edema Results Labs CBC and Chem 7: 08/26/20 05:19 08/29/20 05:27 Labs: Laboratory Results - last 24 hr 08/28/20 08/28/20 08/29/20 16:23 19:58 05:27 Anion Gap 12 Estim Creat Clear Calc 69.7 Estimated GFR > 60 POC Glucose 212 H 168 H Random Glucose 135 H Calcium 8.4 COVID-19 (ANGEL) COVID-19 Clin Com 08/29/20 08/29/20 08/29/20 07:20 11:14 12:55 Anion Gap Estim Creat Clear Calc Estimated GFR POC Glucose 137 H 229 H Random Glucose Calcium COVID-19 ([facility]LE) Negative COVID-19 Clin Com See Note Assessment and Plan (1) Chest pain, non-cardiac: Status: Acute (2) Leukocytosis: Qualifiers: Leukocytosis type: unspecified Qualified Code(s): D72.829 - Elevated white blood cell count, unspecified Status: Acute (3) Hypotension: Status: Acute (4) Hypoxia: Status: Acute (5) Diabetes mellitus: Qualifiers: Diabetes mellitus type: type 2 Diabetes mellitus mcfp insulin use: unspecified 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 New onset atrial fibrillation Paroxysmal atrial fibrillation Noted during telemetry monitoring Could be associated with her hypotension and chest tightness at time of presentation Discussed need of anticoagulation with her and explained the side effects which the patient understand Continue Eliquis Continue metoprolol to 50 Echo ordered, can be done inpatient or outpatient cardiology consult, echo can be done inpatient or outpatient, continue metoprolol and Eliquis Physical deconditioning Evaluated by PT with recommendation for STR Pending placement chest pain Resolved Atypical, reproducible which could be costochondritis negative high sensitivity troponin No ST or T-wave changes on EKG shows no evidence of ACS Hypoxia unclear etiology, patient has no history of COPD chest x-ray negative for pneumonia chest CT angiogram negative for PE COVID-19, flu, RSV serology negative Could be other viral illness\atelectasis or related to paroxysmal AFib Weaned off the oxygen completely Continue incentive spirometry hypotension Resolved unclear etiology but could be related to undiagnosed AFib responded to IV fluids Type 2 diabetes hold metformin Continue low-dose sliding scale insulin bipolar disorder continue home medications hypothyroidism continue levothyroxine hypertension will hold off lisinopril at this time as patient hypotensive resume once blood pressure more stable GERD continue pantoprazole DVT prophylaxis Amish Cannon, pending insurance authorization for SNF placement.
[2020-08-29 15:19] VITALS: BP 166/88; PULSE 68; RESP 18; TEMP 36.6; O2SAT 94
== END 2020-08-29 16:10 | disposition home or self-care (01) | DRG 310 ==
LOC: HO.ED 08-24 09:27 → HO.EDOVER 08-24 20:34 → HO.IMC 08-25 10:00
PROVIDERS: Emergency Medicine; Physician Assistant Medical; Student in an Organized Health Care Education/Training Program; Admitting Provider Internal Medicine; Emergency Provider Emergency Medicine Emergency Medical Services; PCP Internal Medicine; Visit Provider Internal Medicine
DX: I48.0 Paroxysmal atrial fibrillation (principal); I95.9 Hypotension, unspecified; E03.9 Hypothyroidism, unspecified; E11.9 Type 2 diabetes mellitus without complications; K21.9 Gastro-esophageal reflux disease without esophagitis; F31.9 Bipolar disorder, unspecified; I10 Essential (primary) hypertension; R09.02 Hypoxemia; Z20.822 Contact with and (suspected) exposure to COVID-19; Z88.2 Allergy status to sulfonamides; Z88.5 Allergy status to narcotic agent; Z79.01 Long term (current) use of anticoagulants; Z79.84 Long term (current) use of oral hypoglycemic drugs; Z79.890 Hormone replacement therapy; Z79.899 Other long term (current) drug therapy
CPT/HCPCS: 0241U; 36415; 71045; 71275; 80048; 81001; 82947; 83605; 83880; 84484; 85025; 85027; 87040; 87635; 93005; 93306; 97110; 97112; 97162; 97530; 99285; J1650; Q9967

== ENCOUNTER 2020-09-02 16:22 | Emergency (ER) | payer MEDICARE, SELFPAY ==
[2020-09-02 16:29] VITALS: BP 126/58; BP 126/68; PULSE 78; PULSE 80; RESP 18; TEMP 36.6; O2SAT 95; BMI 30.8
--- NOTE | 2020-09-02 16:41 | ED.CHESTPAIN ---
HPI - Chest Pain General Chief Complaint: Chest Pain Stated Complaint: Chest pain Time Seen by Provider: 09/02/20 16:41 Source: patient Mode of arrival: EMS Limitations: no limitations History of Present Illness HPI narrative: History of paroxysmal a frequent ER visits and admission for atypical chest pain on Eliquis last time admitted on 08/24 and discharged on 08/29 at that time it was diagnosed as new onset AFib home stating all of a sudden noticed sharp chest pain not reproducible lasted for few minutes resolved after taking aspirin by EMS. Patient denied any palpitation but in the past also she never felt palpitations no shortness of breath no diaphoresis no nausea no vomiting at this time patient is symptomatic MD complaint: chest pain Related Data Home Medications Medication Instructions Recorded Confirmed atorvastatin 40 mg tablet 40 mg PO BEDTIME tab 03/23/20 08/23/20 cholecalciferol (vitamin D3) 25 25 mcg PO DAILY 03/23/20 08/23/20 mcg (1,000 unit) tablet lancing device with lancets kit #1 ea 05/11/20 08/25/20 divalproex 1,000 mg PO BEDTIME 08/23/20 08/23/20 divalproex 500 mg PO DAILY 08/23/20 08/23/20 lisinopril 2.5 mg PO DAILY 08/23/20 08/23/20 Previous Rx's Medication Instructions Recorded ascorbic acid (vitamin C) 500 mg 500 mg PO DAILY #90 tab 03/30/20 tablet pantoprazole 40 mg tablet,delayed 40 mg PO DAILY 30 Days #30 tab 04/25/20 release lancets 33 gauge #100 ea 05/11/20 oxybutynin chloride 5 mg tablet 5 mg PO BID #180 tab 06/28/20 ferrous fumarate 324 mg (106 mg 324 mg PO DAILY #100 tab 07/04/20 iron) tablet nystatin 100,000 unit/gram topical 1 appl TOPICAL BID 30 Days #15 g 07/22/20 powder perphenazine 4 mg tablet 4 mg PO BID #90 tab 08/18/20 metformin 500 mg tablet,extended 500 mg PO BID #180 tab 08/23/20 release 24 hr risperidone 1 mg tablet 1 mg PO BID #60 tab 08/28/20 apixaban [Eliquis] 5 mg PO BID #60 tab 08/29/20 metoprolol succinate 50 mg PO DAILY #30 tab 08/29/20 gabapentin 100 mg capsule 100 mg PO BEDTIME 30 Days #30 cap 09/02/20 levothyroxine 100 mcg tablet 100 mcg PO DAILY #90 tab 09/02/20 Allergies Allergy/AdvReac Type Severity Reaction Status Date / Time amoxicillin [Amoxicillin] Allergy Intermediate SWELLING, Verified 08/23/20 15:25 rash Sulfa (Sulfonamide Allergy Intermediate itching & Verified 08/23/20 15:25 Antibiotics) bruising codeine [CODEINE] Allergy Unknown RASH Verified 08/23/20 15:25 dicyclomine Allergy Unknown Unknown Verified 08/23/20 15:25 lidocaine [LIDOCAINE] Allergy Unknown UNKNOWN Verified 08/23/20 15:25 lithium [LITHIUM] AdvReac Severe NEPHROGENIC Verified 08/23/20 15:25 DIABETES INSIPIDUS meclizine [Meclizine] AdvReac Intermediate INCREASES Verified 08/23/20 15:25 DIZZINESS simvastatin [SIMVASTATIN] AdvReac Intermediate MYALGIAS Verified 08/23/20 15:25 metronidazole [METRONIDAZOLE] AdvReac Mild FLU LIKE Verified 08/23/20 15:25 SYMPTOMS acyclovir AdvReac Unknown Unknown Verified 08/23/20 15:25 Review of Systems Review of Systems: Constitutional : No Weight loss, No Fever, No Chills ENT/Mouth : No sore throat, No Rhinorrhea Eyes: No Eye Pain, No Swelling Cardiovascular : ++ Chest Pain, no palpitations Respiratory : No Cough, No Sputum, no shortness of breath Gastrointestinal : no Nausea, No Vomiting, No Diarrhea, No abdominal Pain, no black stools Genitourinary : No Dysuria, No Urinary Frequency Musculoskeletal : No joint pain, No Myalgias, No Joint Swelling Skin : No Skin Lesions, No rash Neuro : No Weakness, No Numbness, No Dizziness, No Headache Psych : No Anxiety/Panic, No Depression Heme/Lymph: No Bruising, No Lymphadenopathy Endocrine : No Polyuria, No Polydipsia All other systems reviewed and are negative [facility] Past Medical History Medical History (Updated 09/02/20 @ 18:16 by Alfredo Ko MD) Acquired hypothyroidism Allergic rhinitis Anemia Benign essential hypertension Bipolar disorder Diabetes mellitus GERD without esophagitis High bilirubin History of vitamin D deficiency Hx of diabetes insipidus Hx of strabismus Hypertension Intertrigo Obesity (BMI 30-39.9) PAF (paroxysmal atrial fibrillation) Pain of left lower extremity Pure hypercholesterolemia Surgical History History of eye surgery History of left breast biopsy Hx of cataract surgery (~07/2017) Hx of dilation and curettage Family History Family History Father History of cerebral hemorrhage Mother History of cerebral hemorrhage Social History Social History Household Members: Spouse Housing: Apartment Alcohol intake: never Smoking Status: Former smoker Second Hand Smoke Exposure: No Advance Directives: Yes Advance Directives on File: Yes Advance Directives Date on File: 08/24/20 service: No Current occupational status: retired Physical Exam Vital Signs: Vital Signs: Last Vital Signs Temp 97.9 F 09/02/20 16:29 Pulse 80 09/02/20 16:29 Resp 18 09/02/20 16:29 BP 126/68 09/02/20 16:29 Pulse Ox 95 09/02/20 16:29 Body Mass Index 30.8 Appearance: Alert. Oriented X3. No acute distress. Eyes: Pupils equal, round and reactive to light. ENT: Pharynx normal. Neck: Normal inspection. Neck supple. CVS: Normal heart rate and rhythm. Pulses normal. Respiratory: No respiratory distress. Breath sounds normal. Abdomen: Soft and nontender. Bowel sounds are present, no mass palpable, no CVA tenderness Skin: Skin warm and dry. Normal skin color. Normal skin turgor. Extremities: No lower extremity edema. Neuro: Oriented X 3. No motor deficit. No sensory deficit. MDM - Chest Pain MDM Narrative Medical decision making narrative: Patient with atypical chest pain with history of AFib cardiac workup negative EKG no acute ischemic changes will discharge [facility] Medical Records Data Attestation: I reviewed the patient's medical records. Lab Data Attestation: I reviewed the patient's lab results. Result diagrams: 09/02/20 17:05 09/02/20 17:06 Labs: Lab Results 09/02/20 09/02/20 09/02/20 Range/Units 17:05 17:05 17:06 WBC 8.9 (4.8-10.8) X10*3/uL RBC 3.72 L (4.20-5.50) X10*6/uL Hgb 12.3 (12.0-16.0) g/dl Hct 38.3 (37-47) % MCV 103.0 H (80-98) fL MCH 33.1 H (27.0-33.0) pg MCHC 32.1 (31.0-35.0) g/dl RDW 12.6 (11.0-16.0) % Plt Count 239 D (160-400) X10*3/uL MPV 8.8 L (9.4-12.3) fL Immature Gran % (Auto) 2.6 H (0.0-0.4) % Neut % (Auto) 58.3 (45-73) % Lymph % (Auto) 30.2 (20-40) % Coffee % (Auto) 7.3 (2-11) % Eos % (Auto) 1.3 (0-4) % Baso % (Auto) 0.3 (0-2) % Lymph # (Auto) 2.7 (1.2-4.9) X10*3/uL Coffee # (Auto) 0.7 (0.1-1.2) X10*3/uL Eos # (Auto) 0.1 (0.0-0.4) X10*3/uL Baso # (Auto) 0.0 (0.0-0.2) X10*3/uL Abs Immat Gran (auto) 0.23 H (0.00-0.03) X10*3/uL Absolute Neuts (auto) 5.2 (2.0-8.3) X10*3/uL Absolute Nucleated RBC 0.000 (0.0-0.012) X10*3/uL Nucleated RBC % (auto) 0.0 (0.0-0.2) /100WBC PT 13.4 H (10.8-13.0) SEC INR 1.1 (0.9-1.1) Sodium (135-145) mmol/L Potassium (3.3-5.1) mmol/L Chloride (96-108) mmol/L Carbon Dioxide (22-29) mmol/L Anion Gap (12-20) BUN (9-16) mg/dL Creatinine (0.5-1.4) mg/dL Estim Creat Clear Calc Estimated GFR Random Glucose (60-115) mg/dL Calcium (8.4-10.2) mg/dL Troponin I High Sens < 3.5 (<3.5-17.0) ng/L 09/02/20 Range/Units 17:06 WBC (4.8-10.8) X10*3/uL RBC (4.20-5.50) X10*6/uL Hgb (12.0-16.0) g/dl Hct (37-47) % MCV (80-98) fL MCH (27.0-33.0) pg MCHC (31.0-35.0) g/dl RDW (11.0-16.0) % Plt Count (160-400) X10*3/uL MPV (9.4-12.3) fL Immature Gran % (Auto) (0.0-0.4) % Neut % (Auto) (45-73) % Lymph % (Auto) (20-40) % Coffee % (Auto) (2-11) % Eos % (Auto) (0-4) % Baso % (Auto) (0-2) % Lymph # (Auto) (1.2-4.9) X10*3/uL Coffee # (Auto) (0.1-1.2) X10*3/uL Eos # (Auto) (0.0-0.4) X10*3/uL Baso # (Auto) (0.0-0.2) X10*3/uL Abs Immat Gran (auto) (0.00-0.03) X10*3/uL Absolute Neuts (auto) (2.0-8.3) X10*3/uL Absolute Nucleated RBC (0.0-0.012) X10*3/uL Nucleated RBC % (auto) (0.0-0.2) /100WBC PT (10.8-13.0) SEC INR (0.9-1.1) Sodium 140 (135-145) mmol/L Potassium 4.5 (3.3-5.1) mmol/L Chloride 104 (96-108) mmol/L Carbon Dioxide 26 (22-29) mmol/L Anion Gap 15 (12-20) BUN 16 (9-16) mg/dL Creatinine 0.82 (0.5-1.4) mg/dL Estim Creat Clear Calc 67.7 Estimated GFR > 60 Random Glucose 189 H D (60-115) mg/dL Calcium 8.8 (8.4-10.2) mg/dL Troponin I High Sens (<3.5-17.0) ng/L Discharge Plan Discharge Clinical Impression: Atypical chest pain Patient Disposition: Xfer SNF Instructions: Chest Pain (ED) Additional Instructions: Continue your medications and 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 Prescriptions: No Action ascorbic acid (vitamin C) [Vitamin C] 500 mg tablet 500 mg PO DAILY Qty: 90 RF: 3 (DME) lancets 33 gauge misc See Rx Instructions .ROUTE .MEDSUPPLY Qty: 100 RF: 0 (DME) lancing device with lancets [[employer] Delica Lanc Device] Kit See Rx Instructions .ROUTE .MEDSUPPLY Qty: 1 RF: 0 oxybutynin chloride 5 mg tablet 5 mg PO BID Qty: 180 RF: 1 ferrous fumarate [Ferrocite] 324 mg (106 mg iron) tablet 324 mg PO DAILY Qty: 100 RF: 2 perphenazine 4 mg tablet 4 mg PO BID Qty: 90 RF: 0 metformin 500 mg tablet extended release 24 hr 500 mg PO BID Qty: 180 RF: 1 risperidone 1 mg tablet 1 mg PO BID Qty: 60 RF: 0 levothyroxine 100 mcg tablet 100 mcg PO DAILY Qty: 90 RF: 1 gabapentin 100 mg capsule 100 mg PO BEDTIME 30 Days Qty: 30 RF: 2 divalproex 500 mg tablet extended release 24 hr 500 mg PO DAILY RF: 0 divalproex 500 mg tablet extended release 24 hr 1,000 mg PO BEDTIME RF: 0 lisinopril 2.5 mg tablet 2.5 mg PO DAILY RF: 0 metoprolol succinate 50 mg Tablet Extended Release 24 Hr 50 mg PO DAILY Qty: 30 RF: 0 Eliquis 5 mg Tablet 5 mg PO BID Qty: 60 RF: 0 pantoprazole 40 mg tablet,delayed release (DR/EC) 40 mg PO DAILY 30 Days Qty: 30 RF: 3 nystatin 100,000 unit/gram powder 1 appl topical BID 30 Days Qty: 15 RF: 1 atorvastatin 40 mg tablet 40 mg PO BEDTIME RF: 0 cholecalciferol (vitamin D3) 25 mcg (1,000 unit) tablet 25 mcg PO DAILY RF: 0
--- NOTE | 2020-09-02 16:49 | ECG_ITS ---
Test Reason : CHEST PAIN Blood Pressure : / mmHG Vent. Rate : 075 BPM Atrial Rate : 075 BPM P-R Int : 174 ms QRS Dur : 078 ms QT Int : 382 ms P-R-T Axes : 047 005 -75 degrees QTc Int : 426 ms Normal sinus rhythm ST & T wave abnormality, consider anterior ischemia Abnormal ECG When compared with ECG of 24-AUG-2020 15:02, Non-specific change in ST segment in Inferior leads ST now depressed in Anterior leads ST no longer elevated in Lateral leads Nonspecific T wave abnormality now evident in Inferior leads T wave inversion now evident in Anterior leads Referred By: Alfredo Ko Electronically Signed By:JHON RAMÍREZ MD
[2020-09-02 17:12] LABS: MANUAL DIFF FLAG NO
[2020-09-02 17:17] LABS: Basophils Percent Auto 0.3 % (0-2); Eosinophils Absolute Auto 0.1 X10*3/uL (0.0-0.4); Eosinophils Percent Auto 1.3 % (0-4); Hematocrit 38.3 % (37-47); Hemoglobin 12.3 g/dl (12.0-16.0); Imm Gran Abs Auto 0.23 X10*3/uL (0.00-0.03); Imm Gran Pct Auto 2.6 % (0.0-0.4); Lymphocytes Absolute Auto 2.7 X10*3/uL (1.2-4.9); Lymphocytes Percent Auto 30.2 % (20-40); Mean Corpuscular HGB Conc 32.1 g/dl (31.0-35.0); Mean Corpuscular Hemoglobin 33.1 pg (27.0-33.0); Mean Platelet Volume 8.8 fL (9.4-12.3); Monocytes Absolute Auto 0.7 X10*3/uL (0.1-1.2); Monocytes Percent Auto 7.3 % (2-11); Neutrophils Absolute Auto 5.2 X10*3/uL (2.0-8.3); Neutrophils Percent Auto 58.3 % (45-73); Platelet Count 239 X10*3/uL (160-400); Red Blood Count 3.72 X10*6/uL (4.20-5.50); Red Cell Distribution Width 12.6 % (11.0-16.0); White Blood Count 8.9 X10*3/uL (4.8-10.8)
[2020-09-02 17:24] LABS: INTERNATIONAL NORM RATIO 1.1 (0.9-1.1); Prothrombin Time 13.4 SEC (10.8-13.0)
[2020-09-02 17:45] LABS: Troponin-I High Sensitivity < 3.5 ng/L (<3.5-17.0)
[2020-09-02 17:57] LABS: Anion Gap 15 (12-20); Blood Urea Nitrogen 16 mg/dL (9-16); Calcium 8.8 mg/dL (8.4-10.2); Carbon Dioxide 26 mmol/L (22-29); Chloride 104 mmol/L (96-108); Creatinine Clr Calc Pharmacy 67.7; Estimated Glomerular Filt Rate > 60; Glucose Random 189 mg/dL (60-115); Potassium 4.5 mmol/L (3.3-5.1); Sodium 140 mmol/L (135-145)
--- NOTE | 2020-09-02 18:28 | PC.NURSE ---
PT CONTINUES TO DENY ANY CURRENT CP, SOB, DIZZINESS, NAUSEA. GIVEN FOOD & DRINK REQUESTED. TRANSPORT BEING ARRANGED FOR RETURN TO [facility]. PT & FAMILY AWARE
[2020-09-02 20:42] VITALS: BP 124/70; PULSE 76; RESP 20; O2SAT 97
== END 2020-09-02 20:44 | disposition skilled nursing facility (03) ==
PROVIDERS: Emergency Provider Internal Medicine; PCP Internal Medicine
DX: R07.89 Other chest pain (principal); I48.0 Paroxysmal atrial fibrillation; E11.9 Type 2 diabetes mellitus without complications; I10 Essential (primary) hypertension; D64.9 Anemia, unspecified; Z79.01 Long term (current) use of anticoagulants; Z87.891 Personal history of nicotine dependence; Z79.899 Other long term (current) drug therapy; Z79.84 Long term (current) use of oral hypoglycemic drugs
CPT/HCPCS: 36415; 80048; 84484; 85025; 85610; 93005; 99283; 99284

== ENCOUNTER 2020-09-07 15:01 | Emergency (ER) | payer MEDICARE, SELFPAY ==
--- NOTE | ~2020-09-07 | XR_ITS ---
EXAMINATION: XR CHEST CLINICAL INFORMATION: Pain COMPARISON: Previous chest x-ray most recent 08/23/2020 and CTA of the chest 08/24/2020 TECHNIQUE: Frontal view of the chest was obtained. FINDINGS: The cardiac and mediastinal contours are stable. The lungs are clear. There is no pleural effusion or pneumothorax. Bony structures are unremarkable. XR/XR chest 1V IMPRESSION: Unremarkable examination.
[2020-09-07 15:11] VITALS: BP 119/71; BP 126/73; PULSE 63; PULSE 65; RESP 19; TEMP 36.8; O2SAT 96; O2SAT 98; BMI 31.8
--- NOTE | 2020-09-07 15:34 | ED_ITS ---
HPI - Chest Pain General Chief Complaint: Chest Pain <Patrick Barnhart MD - Last Filed: 09/07/20 20:28> Stated Complaint: CHEST PRESSURE <Patrick Barnhart MD - Last Filed: 09/07/20 20:28> Time Seen by Provider: 09/07/20 15:03 <Patrick Barnhart MD - Last Filed: 09/07/20 20:28> History of Present Illness HPI narrative: Patient was brought to the hospital by ambulance after complaining of left-sided chest pain and pressure which resolved during the trip in the ambulance after she got aspirin The pain did not radiate there was no diaphoresis it was not related to exertion as the patient was simply sitting when it came on, there were no palpitations or fainting, no feeling faint, no shortness of breath At this time the patient is pain-free <MICHELE Bell - Last Filed: 09/07/20 21:32> Related Data Home Medications: Home Medications Medication Instructions Recorded Confirmed atorvastatin 40 mg tablet 40 mg PO BEDTIME tab 03/23/20 08/23/20 cholecalciferol (vitamin D3) 25 25 mcg PO DAILY 03/23/20 08/23/20 mcg (1,000 unit) tablet lancing device with lancets kit #1 ea 05/11/20 08/25/20 divalproex 1,000 mg PO BEDTIME 08/23/20 08/23/20 divalproex 500 mg PO DAILY 08/23/20 08/23/20 lisinopril 2.5 mg PO DAILY 08/23/20 08/23/20 Previous Rx's Medication Instructions Recorded ascorbic acid (vitamin C) 500 mg 500 mg PO DAILY #90 tab 03/30/20 tablet pantoprazole 40 mg tablet,delayed 40 mg PO DAILY 30 Days #30 tab 04/25/20 release lancets 33 gauge #100 ea 05/11/20 oxybutynin chloride 5 mg tablet 5 mg PO BID #180 tab 06/28/20 ferrous fumarate 324 mg (106 mg 324 mg PO DAILY #100 tab 07/04/20 iron) tablet nystatin 100,000 unit/gram topical 1 appl TOPICAL BID 30 Days #15 g 07/22/20 powder perphenazine 4 mg tablet 4 mg PO BID #90 tab 08/18/20 metformin 500 mg tablet,extended 500 mg PO BID #180 tab 08/23/20 release 24 hr risperidone 1 mg tablet 1 mg PO BID #60 tab 08/28/20 apixaban [Eliquis] 5 mg PO BID #60 tab 08/29/20 metoprolol succinate 50 mg PO DAILY #30 tab 08/29/20 gabapentin 100 mg capsule 100 mg PO BEDTIME 30 Days #30 cap 09/02/20 levothyroxine 100 mcg tablet 100 mcg PO DAILY #90 tab 09/02/20 <Patrick Barnhart MD - Last Filed: 09/07/20 20:28> Allergies/Adverse Reactions: Allergies Allergy/AdvReac Type Severity Reaction Status Date / Time amoxicillin [Amoxicillin] Allergy Intermediate SWELLING, Verified 08/23/20 15:25 rash Sulfa (Sulfonamide Allergy Intermediate itching & Verified 08/23/20 15:25 Antibiotics) bruising codeine [CODEINE] Allergy Unknown RASH Verified 08/23/20 15:25 dicyclomine Allergy Unknown Unknown Verified 08/23/20 15:25 lidocaine [LIDOCAINE] Allergy Unknown UNKNOWN Verified 08/23/20 15:25 lithium [LITHIUM] AdvReac Severe NEPHROGENIC Verified 08/23/20 15:25 DIABETES INSIPIDUS meclizine [Meclizine] AdvReac Intermediate INCREASES Verified 08/23/20 15:25 DIZZINESS simvastatin [SIMVASTATIN] AdvReac Intermediate MYALGIAS Verified 08/23/20 15:25 metronidazole [METRONIDAZOLE] AdvReac Mild FLU LIKE Verified 08/23/20 15:25 SYMPTOMS acyclovir AdvReac Unknown Unknown Verified 08/23/20 15:25 <Patrick Barnhart MD - Last Filed: 09/07/20 20:28> Review of Systems Review of Systems: Positive for chest pain Negatives are no fever no chills no dizziness no weakness no fainting no confusion no numbness or weakness, no headache no neck pain no shortness of breath no palpitations no abdominal pain no nausea vomiting or diarrhea no leg swelling no calf pain or swelling, no rash no numbness no weakness <MICHELE Bell - Last Filed: 09/07/20 21:32> [facility] Past Medical History Source: nursing notes reviewed <MICHELE Bell - Last Filed: 09/07/20 21:32> Medical History: Medical History (Updated 09/07/20 @ 20:53 by MICHELE Bell) Acquired hypothyroidism Allergic rhinitis Anemia Benign essential hypertension Bipolar disorder Diabetes mellitus GERD without esophagitis High bilirubin History of vitamin D deficiency Hx of diabetes insipidus Hx of strabismus Hypertension Intertrigo Obesity (BMI 30-39.9) PAF (paroxysmal atrial fibrillation) Pain of left lower extremity Pure hypercholesterolemia <Patrick Barnhart MD - Last Filed: 09/07/20 20:28> Surgical History: Surgical History History of eye surgery History of left breast biopsy Hx of cataract surgery (~07/2017) Hx of dilation and curettage <Patrick Barnhart MD - Last Filed: 09/07/20 20:28> Family History Family History: Family History Father History of cerebral hemorrhage Mother History of cerebral hemorrhage <Patrick Barnhart MD - Last Filed: 09/07/20 20:28> Social History Social History: Social History Household Members: Spouse Housing: Apartment Alcohol intake: never Smoking Status: Former smoker Second Hand Smoke Exposure: No Use of substances other than those prescribed or required for medical reasons: No Advance Directives: Yes Advance Directives on File: Yes Advance Directives Date on File: 08/24/20 service: No Current occupational status: retired <Patrick Barnhart MD - Last Filed: 09/07/20 20:28> Physical Exam Vital Signs: Vital Signs: Last Vital Signs Temp 97.5 F 09/07/20 16:14 Pulse 66 09/07/20 16:14 Resp 20 09/07/20 16:14 BP 112/65 09/07/20 16:14 Pulse Ox 92 09/07/20 16:14 Body Mass Index 31.8 <Patrick Barnhart MD - Last Filed: 09/07/20 20:28> Vital Signs: Last Vital Signs Temp 97.5 F 09/07/20 16:14 Pulse 66 09/07/20 16:14 Resp 20 09/07/20 16:14 BP 112/65 09/07/20 16:14 Pulse Ox 92 09/07/20 16:14 Body Mass Index 31.8 <MICHELE Bell - Last Filed: 09/07/20 21:32> General appearance no acute distress No diaphoresis The neck is supple without JVD The chest is clear to auscultation with full symmetric equal breath sounds, no tenderness to chest wall, pain is not reproduced with a deep breath B abdomen soft nontender The extremities no edema no calf tenderness no calf swelling The skin no rashes Neuro no focal deficit no numbness no weakness, verbal interaction is clear speech and good comprehension, no facial asymmetry <MICHELE Bell - Last Filed: 09/07/20 21:32> Course Course Course Narrative: I have discussed the case and management with the RUPAL. Will admit with EKG changes and chest pain. no active pain currently <Patrick Barnhart MD - Last Filed: 09/07/20 20:28> Patient's EKG was abnormal showing multiple T-wave inversions in inferior and lateral leads These were compared to a recent EKG done in Cardiology just a few weeks ago and it is an unchanged EKG with no acute changes Troponin x2 were negative Patient feels fine and remains asymptomatic This case was discussed with Dr. Plata who agrees with plan to discharge patient and follow closely with cardiology I paged financial compliance manager who is on-call and his partners with Dr. chou who is the patient's financial compliance manager and he said they can call the office tomorrow to be seen this week Patient is discharged <MICHELE Bell - Last Filed: 09/07/20 21:32> Reevaluation(s) Reevaluation #1: EKG changes are old, troponins are flat will dc home <Patrick Barnhart MD - Last Filed: 09/07/20 20:28> MDM - Chest Pain MDM Narrative Medical decision making narrative: EKG showed normal sinus rhythm with a rate of 60 [place] was 146 QRS duration was 82 QT was normal, there were multiple T-wave inversions in 3 AVF, 3 V3 V4 V5 and there were Flattening in in V6 and V2, this was compared with EKG of 09/02/2020 of this year that was done in the financial compliance manager office and it is unchanged with T-wave inversions same on prior EKG <MICHELE Bell - Last Filed: 09/07/20 21:32> Lab Data Attestation: I reviewed the patient's lab results. <MICHELE Bell - Last Filed: 09/07/20 21:32> Result diagrams: : 09/07/20 16:11 09/07/20 16:11 <Patrick Barnhart MD - Last Filed: 09/07/20 20:28> Labs: Lab Results 09/07/20 09/07/20 09/07/20 Range/Units 16:11 16:11 16:11 WBC 9.9 (4.8-10.8) X10*3/uL RBC 4.05 L (4.20-5.50) X10*6/uL Hgb 13.1 (12.0-16.0) g/dl Hct 41.1 (37-47) % MCV 101.5 H (80-98) fL MCH 32.3 (27.0-33.0) pg MCHC 31.9 (31.0-35.0) g/dl RDW 12.8 (11.0-16.0) % Plt Count 275 (160-400) X10*3/uL MPV 8.7 L (9.4-12.3) fL Immature Gran % (Auto) 3.0 H (0.0-0.4) % Neut % (Auto) 57.9 (45-73) % Lymph % (Auto) 32.0 (20-40) % [place] % (Auto) 5.4 (2-11) % Eos % (Auto) 1.4 (0-4) % Baso % (Auto) 0.3 (0-2) % Lymph # (Auto) 3.2 (1.2-4.9) X10*3/uL [place] # (Auto) 0.5 (0.1-1.2) X10*3/uL Eos # (Auto) 0.1 (0.0-0.4) X10*3/uL Baso # (Auto) 0.0 (0.0-0.2) X10*3/uL Abs Immat Gran (auto) 0.30 H (0.00-0.03) X10*3/uL Absolute Neuts (auto) 5.8 (2.0-8.3) X10*3/uL Absolute Nucleated RBC 0.000 (0.0-0.012) X10*3/uL Nucleated RBC % (auto) 0.0 (0.0-0.2) /100WBC Hold Blue Top SEE NOTE Sodium 140 (135-145) mmol/L Potassium 5.0 (3.3-5.1) mmol/L Chloride 101 (96-108) mmol/L Carbon Dioxide 27 (22-29) mmol/L Anion Gap 17 (12-20) BUN 17 H (9-16) mg/dL Creatinine 0.87 (0.5-1.4) mg/dL Estim Creat Clear Calc 64.8 Estimated GFR > 60 Random Glucose 120 H D (60-115) mg/dL Calcium 9.4 D (8.4-10.2) mg/dL Troponin I High Sens (<3.5-17.0) ng/L 09/07/20 09/07/20 Range/Units 16:11 19:47 WBC (4.8-10.8) X10*3/uL RBC (4.20-5.50) X10*6/uL Hgb (12.0-16.0) g/dl Hct (37-47) % MCV (80-98) fL MCH (27.0-33.0) pg MCHC (31.0-35.0) g/dl RDW (11.0-16.0) % Plt Count (160-400) X10*3/uL MPV (9.4-12.3) fL Immature Gran % (Auto) (0.0-0.4) % Neut % (Auto) (45-73) % Lymph % (Auto) (20-40) % [place] % (Auto) (2-11) % Eos % (Auto) (0-4) % Baso % (Auto) (0-2) % Lymph # (Auto) (1.2-4.9) X10*3/uL [place] # (Auto) (0.1-1.2) X10*3/uL Eos # (Auto) (0.0-0.4) X10*3/uL Baso # (Auto) (0.0-0.2) X10*3/uL Abs Immat Gran (auto) (0.00-0.03) X10*3/uL Absolute Neuts (auto) (2.0-8.3) X10*3/uL Absolute Nucleated RBC (0.0-0.012) X10*3/uL Nucleated RBC % (auto) (0.0-0.2) /100WBC Hold Blue Top Sodium (135-145) mmol/L Potassium (3.3-5.1) mmol/L Chloride (96-108) mmol/L Carbon Dioxide (22-29) mmol/L Anion Gap (12-20) BUN (9-16) mg/dL Creatinine (0.5-1.4) mg/dL Estim Creat Clear Calc Estimated GFR Random Glucose (60-115) mg/dL Calcium (8.4-10.2) mg/dL Troponin I High Sens < 3.5 < 3.5 (<3.5-17.0) ng/L <Patrick Barnhart MD - Last Filed: 09/07/20 20:28> Lab Results 09/07/20 09/07/20 09/07/20 Range/Units 16:11 16:11 16:11 WBC 9.9 (4.8-10.8) X10*3/uL RBC 4.05 L (4.20-5.50) X10*6/uL Hgb 13.1 (12.0-16.0) g/dl Hct 41.1 (37-47) % MCV 101.5 H (80-98) fL MCH 32.3 (27.0-33.0) pg MCHC 31.9 (31.0-35.0) g/dl RDW 12.8 (11.0-16.0) % Plt Count 275 (160-400) X10*3/uL MPV 8.7 L (9.4-12.3) fL Immature Gran % (Auto) 3.0 H (0.0-0.4) % Neut % (Auto) 57.9 (45-73) % Lymph % (Auto) 32.0 (20-40) % [place] % (Auto) 5.4 (2-11) % Eos % (Auto) 1.4 (0-4) % Baso % (Auto) 0.3 (0-2) % Lymph # (Auto) 3.2 (1.2-4.9) X10*3/uL [place] # (Auto) 0.5 (0.1-1.2) X10*3/uL Eos # (Auto) 0.1 (0.0-0.4) X10*3/uL Baso # (Auto) 0.0 (0.0-0.2) X10*3/uL Abs Immat Gran (auto) 0.30 H (0.00-0.03) X10*3/uL Absolute Neuts (auto) 5.8 (2.0-8.3) X10*3/uL Absolute Nucleated RBC 0.000 (0.0-0.012) X10*3/uL Nucleated RBC % (auto) 0.0 (0.0-0.2) /100WBC Hold Blue Top SEE NOTE Sodium 140 (135-145) mmol/L Potassium 5.0 (3.3-5.1) mmol/L Chloride 101 (96-108) mmol/L Carbon Dioxide 27 (22-29) mmol/L Anion Gap 17 (12-20) BUN 17 H (9-16) mg/dL Creatinine 0.87 (0.5-1.4) mg/dL Estim Creat Clear Calc 64.8 Estimated GFR > 60 Random Glucose 120 H D (60-115) mg/dL Calcium 9.4 D (8.4-10.2) mg/dL Troponin I High Sens (<3.5-17.0) ng/L 09/07/20 09/07/20 Range/Units 16:11 19:47 WBC (4.8-10.8) X10*3/uL RBC (4.20-5.50) X10*6/uL Hgb (12.0-16.0) g/dl Hct (37-47) % MCV (80-98) fL MCH (27.0-33.0) pg MCHC (31.0-35.0) g/dl RDW (11.0-16.0) % Plt Count (160-400) X10*3/uL MPV (9.4-12.3) fL Immature Gran % (Auto) (0.0-0.4) % Neut % (Auto) (45-73) % Lymph % (Auto) (20-40) % [place] % (Auto) (2-11) % Eos % (Auto) (0-4) % Baso % (Auto) (0-2) % Lymph # (Auto) (1.2-4.9) X10*3/uL [place] # (Auto) (0.1-1.2) X10*3/uL Eos # (Auto) (0.0-0.4) X10*3/uL Baso # (Auto) (0.0-0.2) X10*3/uL Abs Immat Gran (auto) (0.00-0.03) X10*3/uL Absolute Neuts (auto) (2.0-8.3) X10*3/uL Absolute Nucleated RBC (0.0-0.012) X10*3/uL Nucleated RBC % (auto) (0.0-0.2) /100WBC Hold Blue Top Sodium (135-145) mmol/L Potassium (3.3-5.1) mmol/L Chloride (96-108) mmol/L Carbon Dioxide (22-29) mmol/L Anion Gap (12-20) BUN (9-16) mg/dL Creatinine (0.5-1.4) mg/dL Estim Creat Clear Calc Estimated GFR Random Glucose (60-115) mg/dL Calcium (8.4-10.2) mg/dL Troponin I High Sens < 3.5 < 3.5 (<3.5-17.0) ng/L <MICHELE Bell - Last Filed: 09/07/20 21:32> Discharge Plan Discharge Clinical Impression: Chest pain <Patrick Barnhart MD - Last Filed: 09/07/20 20:28> Patient Disposition: Home, Self-Care <Patrick Barnhart MD - Last Filed: 09/07/20 20:28> Additional Instructions: Our workup today showed that it is unlikely that you had an acute heart attack today, but it does not rule out the possibility of ischemic heart disease You likely need further testing to confirm that you are not at risk of a heart attack in the near future Your financial compliance manager is Dr. chou, he works with Dr. crawford, I texted with him and he says call the office in the morning for very close follow-up for further evaluation So very important call your financial compliance manager 1st thing in the morning and let them know that your in the ER and it was discussed with the on-call financial compliance manager Return to ER any time for chest pain any worse condition any concerns <Patrick Barnhart MD - Last Filed: 09/07/20 20:28> Prescriptions: No Action ascorbic acid (vitamin C) [Vitamin C] 500 mg tablet 500 mg PO DAILY Qty: 90 RF: 3 (DME) lancets 33 gauge misc See Rx Instructions .ROUTE .MEDSUPPLY Qty: 100 RF: 0 (DME) lancing device with lancets [OneTouch Delica Lanc Device] Kit See Rx Instructions .ROUTE .MEDSUPPLY Qty: 1 RF: 0 oxybutynin chloride 5 mg tablet 5 mg PO BID Qty: 180 RF: 1 ferrous fumarate [Ferrocite] 324 mg (106 mg iron) tablet 324 mg PO DAILY Qty: 100 RF: 2 perphenazine 4 mg tablet 4 mg PO BID Qty: 90 RF: 0 metformin 500 mg tablet extended release 24 hr 500 mg PO BID Qty: 180 RF: 1 risperidone 1 mg tablet 1 mg PO BID Qty: 60 RF: 0 levothyroxine 100 mcg tablet 100 mcg PO DAILY Qty: 90 RF: 1 gabapentin 100 mg capsule 100 mg PO BEDTIME 30 Days Qty: 30 RF: 2 divalproex 500 mg tablet extended release 24 hr 500 mg PO DAILY RF: 0 divalproex 500 mg tablet extended release 24 hr 1,000 mg PO BEDTIME RF: 0 lisinopril 2.5 mg tablet 2.5 mg PO DAILY RF: 0 metoprolol succinate 50 mg Tablet Extended Release 24 Hr 50 mg PO DAILY Qty: 30 RF: 0 Eliquis 5 mg Tablet 5 mg PO BID Qty: 60 RF: 0 pantoprazole 40 mg tablet,delayed release (DR/EC) 40 mg PO DAILY 30 Days Qty: 30 RF: 3 nystatin 100,000 unit/gram powder 1 appl topical BID 30 Days Qty: 15 RF: 1 atorvastatin 40 mg tablet 40 mg PO BEDTIME RF: 0 cholecalciferol (vitamin D3) 25 mcg (1,000 unit) tablet 25 mcg PO DAILY RF: 0 <Patrick Barnhart MD - Last Filed: 09/07/20 20:28>
--- NOTE | 2020-09-07 15:46 | ECG_ITS ---
Test Reason : CHEST PAIN Blood Pressure : / mmHG Vent. Rate : 061 BPM Atrial Rate : 061 BPM P-R Int : 188 ms QRS Dur : 072 ms QT Int : 420 ms P-R-T Axes : 050 000 -30 degrees QTc Int : 422 ms Normal sinus rhythm Nonspecific ST and T wave abnormality Abnormal ECG When compared with ECG of 02-SEP-2020 17:20, T wave inversion less evident in Anterior leads Referred By: Akil Sol Electronically Signed By:ANUJ TEAGUE
[2020-09-07 16:14] VITALS: BP 112/65; PULSE 66; RESP 20; TEMP 36.4; O2SAT 92
[2020-09-07 16:18] LABS: MANUAL DIFF FLAG NO
[2020-09-07 16:20] LABS: Basophils Percent Auto 0.3 % (0-2); Eosinophils Absolute Auto 0.1 X10*3/uL (0.0-0.4); Eosinophils Percent Auto 1.4 % (0-4); Hematocrit 41.1 % (37-47); Hemoglobin 13.1 g/dl (12.0-16.0); Lymphocytes Absolute Auto 3.2 X10*3/uL (1.2-4.9); Mean Corpuscular HGB Conc 31.9 g/dl (31.0-35.0); Mean Corpuscular Hemoglobin 32.3 pg (27.0-33.0); Mean Corpuscular Volume 101.5 fL (80-98); Mean Platelet Volume 8.7 fL (9.4-12.3); Monocytes Absolute Auto 0.5 X10*3/uL (0.1-1.2); Monocytes Percent Auto 5.4 % (2-11); Neutrophils Absolute Auto 5.8 X10*3/uL (2.0-8.3); Neutrophils Percent Auto 57.9 % (45-73); Platelet Count 275 X10*3/uL (160-400); Red Blood Count 4.05 X10*6/uL (4.20-5.50); Red Cell Distribution Width 12.8 % (11.0-16.0); White Blood Count 9.9 X10*3/uL (4.8-10.8)
[2020-09-07 16:41] LABS: Anion Gap 17 (12-20); Blood Urea Nitrogen 17 mg/dL (9-16); Calcium 9.4 mg/dL (8.4-10.2); Carbon Dioxide 27 mmol/L (22-29); Chloride 101 mmol/L (96-108); Creatinine Clr Calc Pharmacy 64.8; Estimated Glomerular Filt Rate > 60; Glucose Random 120 mg/dL (60-115); Sodium 140 mmol/L (135-145)
[2020-09-07 16:46] LABS: Troponin-I High Sensitivity < 3.5 ng/L (<3.5-17.0)
--- NOTE | 2020-09-07 17:35 | PC.NURSE ---
PATIENT REPORTED TO rn SHE WOULD LIKE TO BE DC. NITRO PASTE ORDERED BUT PATIENT DID NOT WANT TO HAVE APPLIED. STATED HER CHEST PAIN HAS RESOLVED. MICHELE CASTELLANOS MADE AWARE AND AT BEDSIDE. EXPLAINED TO PATIENT THAT WE WOULD LIKE TO REPEAT TROP IN ABOUT 1.5 HOURS. PATIENT AGREEABLE TO STAY FOR BLOOD WORK. ASKING FOR FOOD, WILL GIVE TO PATIENT AND REPEAT LAB WHEN DUE.
[2020-09-07 20:00] VITALS: BP 120/66; PULSE 72; RESP 20; TEMP 36.7; O2SAT 95
[2020-09-07 20:24] LABS: Troponin-I High Sensitivity < 3.5 ng/L (<3.5-17.0)
[2020-09-07 21:49] VITALS: BP 110/62; PULSE 64; RESP 13; TEMP 37.2; O2SAT 90
== END 2020-09-07 21:50 | disposition home or self-care (01) ==
PROVIDERS: Physician Assistant Medical; Emergency Provider Emergency Medicine
DX: R07.9 Chest pain, unspecified (principal); Z79.899 Other long term (current) drug therapy; Z87.891 Personal history of nicotine dependence
CPT/HCPCS: 36415; 71045; 80048; 84484; 85025; 93005; 99284

== ENCOUNTER → 2020-09-13 13:57 | Outpatient (BNVA) | payer MEDICARE, SELFPAY | PROVIDERS: Visit Provider Internal Medicine Cardiovascular Disease | DX: R07.89 Other chest pain (principal); I48.0 Paroxysmal atrial fibrillation; I95.9 Hypotension, unspecified; Z79.899 Other long term (current) drug therapy; Z87.891 Personal history of nicotine dependence | CPT/HCPCS: 99212 ==

== ENCOUNTER 2020-10-18 08:47 | Outpatient (REF) | payer MEDICARE, SELFPAY ==
[2020-10-18 10:20] LABS: MANUAL DIFF FLAG NO
[2020-10-18 10:25] LABS: Basophils Percent Auto 0.3 % (0-2); Eosinophils Absolute Auto 0.1 X10*3/uL (0.0-0.4); Eosinophils Percent Auto 1.3 % (0-4); Hematocrit 40.6 % (37-47); Hemoglobin 12.8 g/dl (12.0-16.0); Imm Gran Abs Auto 0.07 X10*3/uL (0.00-0.03); Imm Gran Pct Auto 0.9 % (0.0-0.4); Lymphocytes Absolute Auto 2.2 X10*3/uL (1.2-4.9); Lymphocytes Percent Auto 29.3 % (20-40); Mean Corpuscular HGB Conc 31.5 g/dl (31.0-35.0); Mean Corpuscular Hemoglobin 32.7 pg (27.0-33.0); Mean Corpuscular Volume 103.6 fL (80-98); Mean Platelet Volume 8.8 fL (9.4-12.3); Monocytes Absolute Auto 0.4 X10*3/uL (0.1-1.2); Monocytes Percent Auto 5.8 % (2-11); Neutrophils Absolute Auto 4.8 X10*3/uL (2.0-8.3); Neutrophils Percent Auto 62.4 % (45-73); Platelet Count 233 X10*3/uL (160-400); Red Blood Count 3.92 X10*6/uL (4.20-5.50); Red Cell Distribution Width 13.4 % (11.0-16.0); White Blood Count 7.6 X10*3/uL (4.8-10.8)
[2020-10-18 10:32] LABS: Estimated Average Glucose 128 mg/dL; Hemoglobin A1c % 6.1 %
[2020-10-18 10:52] LABS: Cholesterol 136 mg/dL; HDL Cholesterol 49 mg/dL; LDL Cholesterol Calculated 63 mg/dl; Triglycerides 123 mg/dL
== END 2020-10-18 08:48 | disposition home or self-care (01) ==
LOC: HO.10HDL 08:47
PROVIDERS: Visit Provider Nurse Practitioner Family
DX: E11.9 Type 2 diabetes mellitus without complications (principal); E78.00 Pure hypercholesterolemia, unspecified
CPT/HCPCS: 36415; 80061; 83036; 85025

== ENCOUNTER 2021-01-18 08:56 | Outpatient (REF) | payer MEDICARE, SELFPAY ==
[2021-01-18 11:08] LABS: Creatinine Urine 70.18 mg/dL; Microalbum/Creatinine Ratio Ur 7.1 ug/mg cr
== END 2021-01-18 08:57 | disposition home or self-care (01) ==
LOC: HO.10HDL 08:56
PROVIDERS: Visit Provider Nurse Practitioner Family
DX: E11.9 Type 2 diabetes mellitus without complications (principal)
CPT/HCPCS: 82043

== ENCOUNTER → 2021-02-02 11:31 | Outpatient (REF) | payer MEDICARE, SELFPAY ==
--- NOTE | 2021-02-02 11:36 | HM_ITS ---
Baseline rhythm is normal sinus rhythm with average heart rate of 67 beats per minute. No significant bradycardia or pauses noted. Overall burden of PVC is rare with total burden of 0.57%. No ventricular tachyarrhythmias noted. Overall burden of PACs is rare, short burst of SVTs are suggestive of atrial fibrillation with longest lasting 18 beats. There were no sustained episodes of atrial fibrillation. Patient reported multiple events that correlated with sinus rhythm MTDD
== END ==
LOC: HO.CARD 11:31
PROVIDERS: PCP Internal Medicine; Visit Provider Internal Medicine Cardiovascular Disease
DX: I48.0 Paroxysmal atrial fibrillation (principal)
CPT/HCPCS: 93225; 93242

== ENCOUNTER 2021-02-13 12:46 | Outpatient (REF) | payer MEDICARE, SELFPAY ==
[2021-02-14 08:37] LABS: BV Int Neg Control Negative (Negative); BV Int Pos Control Positive (Positive)
== END 2021-02-13 12:47 | disposition home or self-care (01) ==
LOC: HO.LAB 12:46
PROVIDERS: PCP Internal Medicine; Visit Provider Advanced Practice Midwife
DX: Z01.411 Encounter for gynecological examination (general) (routine) with abnormal findings (principal); R10.2 Pelvic and perineal pain; N81.6 Rectocele
CPT/HCPCS: 87480; 87510; 87660

== ENCOUNTER 2021-03-01 12:56 | Outpatient (REF) | payer MEDICARE, SELFPAY ==
--- NOTE | ~2021-03-01 | US_ITS ---
EXAMINATION: US PELVIS CLINICAL INFORMATION: Pelvic and perineal pain. COMPARISON: None TECHNIQUE: Ultrasound of the pelvis is performed using both transabdominal and transvaginal transducers along with Doppler. Patient refused transvaginal ultrasound. FINDINGS: Uterus: The uterus is anteverted and anteflexed and measures 5.9 cm in length, 3.1 cm in AP and 3.9 cm in transverse dimension. The endometrial wall is not well visualized. No focal lesion seen except for a few echogenic calcifications in the uterus. Both ovaries are not visualized. No free fluid in the cul-de-sac. US/US pelvic complete IMPRESSION: Unremarkable uterus except for a few echogenic calcifications. Ovaries are not seen well. There is no free fluid.
== END 2021-03-01 12:57 | disposition home or self-care (01) ==
LOC: HO.US 12:56
PROVIDERS: PCP Internal Medicine; Visit Provider Advanced Practice Midwife
DX: R10.2 Pelvic and perineal pain (principal); I48.0 Paroxysmal atrial fibrillation
CPT/HCPCS: 76856

== ENCOUNTER → 2021-03-08 14:38 | Outpatient (BNVA) | payer MEDICARE, SELFPAY | PROVIDERS: PCP Internal Medicine; Visit Provider Advanced Practice Midwife | DX: R10.2 Pelvic and perineal pain (principal); N89.8 Other specified noninflammatory disorders of vagina; Z71.2 Person consulting for explanation of examination or test findings | CPT/HCPCS: 99212 ==

== ENCOUNTER 2021-03-15 13:02 | Outpatient (REF) | payer MEDICARE, SELFPAY ==
--- NOTE | ~2021-03-15 | MM_ITS ---
EXAMINATION: MM SCREENING DIGITAL BREAST TOMOSYNTHESIS, BILATERAL CLINICAL INFORMATION: Screening. Asymptomatic. The lifetime risk of breast cancer based on the Tyrer-Cuzick Model is 12%. COMPARISON: Mammography: 08/01/2017, 04/25/2016, 08/11/2015, 08/04/2015 TECHNIQUE: Digital breast tomosynthesis is performed in both the craniocaudal and mediolateral oblique views along with computer-aided detection (CAD). Synthesized 2D images are generated from the tomosynthesis. Additional right MLO view is provided. FINDINGS: The breasts are heterogeneously dense, which may obscure small masses (ACR BI-RADS breast composition Category c). Parenchymal pattern is similar to prior studies. There is mild fibronodular parenchymal pattern. No interval dominant nodularity or architectural abnormality or developing density. Again, there are scattered bilateral isolated and chronic grouped calcifications, most are coarse. Biopsy clip marker is again present anterior lower inner right breast. The axilla and skin contours are unremarkable. MM/MM tomosynthesis screening BI IMPRESSION: No significant changes from prior exams. ASSESSMENT: BI-RADS 2: Benign RECOMMENDATION: Routine annual mammography screening. This patient's information was entered into a reminder system with a target due date for their next mammogram.
== END 2021-03-15 13:03 | disposition home or self-care (01) ==
LOC: HO.MAMMO 13:02
PROVIDERS: Visit Provider Internal Medicine
DX: Z12.31 Encounter for screening mammogram for malignant neoplasm of breast (principal)
CPT/HCPCS: 77063; 77067

== ENCOUNTER → 2021-04-17 14:24 | Outpatient (BNVA) | payer MEDICARE, SELFPAY | PROVIDERS: PCP Internal Medicine; Visit Provider Obstetrics & Gynecology | DX: N90.89 Other specified noninflammatory disorders of vulva and perineum (principal) | CPT/HCPCS: 99212 ==

== ENCOUNTER 2021-05-03 08:58 | Outpatient (REF) | payer MEDICARE, SELFPAY ==
[2021-05-03 10:51] LABS: Anion Gap 14 (12-20); Blood Urea Nitrogen 12 mg/dL (9-16); Calcium 9.8 mg/dL (8.4-10.2); Carbon Dioxide 29 mmol/L (22-29); Chloride 103 mmol/L (96-108); Estimated Glomerular Filt Rate 58; Glucose Random 190 mg/dL (60-115); Potassium 4.7 mmol/L (3.3-5.1); Sodium 141 mmol/L (135-145)
== END 2021-05-03 08:59 | disposition home or self-care (01) ==
LOC: HO.LAB 08:58
PROVIDERS: PCP Internal Medicine; Referring Provider Internal Medicine; Visit Provider Internal Medicine Cardiovascular Disease
DX: I48.0 Paroxysmal atrial fibrillation (principal); I10 Essential (primary) hypertension
CPT/HCPCS: 36415; 80048; 99212

== ENCOUNTER 2021-07-13 11:17 | Outpatient (REF) | payer MEDICARE, SELFPAY ==
[2021-07-13 12:06] LABS: MANUAL DIFF FLAG NO
[2021-07-13 12:37] LABS: Basophils Percent Auto 0.2 % (0-2); Eosinophils Absolute Auto 0.1 X10*3/uL (0.0-0.4); Eosinophils Percent Auto 0.7 % (0-4); Hematocrit 41.7 % (37.0-47.0); Hemoglobin 13.3 g/dl (12.0-16.0); Imm Gran Abs Auto 0.09 X10*3/uL (0.00-0.03); Imm Gran Pct Auto 1.1 % (0.0-0.4); Lymphocytes Absolute Auto 2.2 X10*3/uL (1.2-4.9); Lymphocytes Percent Auto 26.1 % (20-40); Mean Corpuscular HGB Conc 31.9 g/dl (31.0-35.0); Mean Corpuscular Hemoglobin 31.8 pg (27.0-33.0); Mean Corpuscular Volume 99.8 fL (80.0-98.0); Monocytes Absolute Auto 0.5 X10*3/uL (0.1-1.2); Monocytes Percent Auto 5.4 % (2-11); Neutrophils Absolute Auto 5.6 x10*3/uL (2.0-8.3); Neutrophils Percent Auto 66.5 % (45-73); Platelet Count 225 X10*3/uL (160-400); Red Blood Count 4.18 X10*6/uL (4.20-5.50); Red Cell Distribution Width 12.9 % (11.0-16.0); White Blood Count 8.4 X10*3/uL (4.8-10.8)
[2021-07-13 13:04] LABS: Alanine Aminotransferase 14 U/L (0-31); Albumin Level 4.2 g/dL (3.5-5.0); Alkaline Phosphatase 78 U/L (39-117); Anion Gap 15 (12-20); Aspartate Amino Transferase 13 U/L (5-31); Bilirubin Total 0.4 mg/dL (0.0-1.0); Blood Urea Nitrogen 15 mg/dL (9-16); Calcium 9.8 mg/dL (8.4-10.2); Carbon Dioxide 28 mmol/L (22-29); Chloride 101 mmol/L (96-108); Estimated Glomerular Filt Rate 52; Glucose Random 209 mg/dL (60-115); Potassium 4.9 mmol/L (3.3-5.1); Sodium 139 mmol/L (135-145); Total Protein 7.1 g/dL (6.5-8.0)
[2021-07-13 13:17] LABS: Erythrocyte Sedimentation Rate 18 MM/HR (0-20)
[2021-07-13 13:32] LABS: TSH reflex Free T4 1.99 uIU/mL (0.32-4.0)
[2021-07-13 14:05] LABS: Folate 14.8 ng/mL (> or = 4.0); Vitamin B12 319 pg/mL (200-900)
[2021-07-14 06:45] LABS: Follicle Stimulating Hormone 39.9 mIU/mL
== END 2021-07-13 11:18 | disposition home or self-care (01) ==
LOC: HO.LAB 11:17
PROVIDERS: PCP Internal Medicine; Visit Provider Internal Medicine
DX: R23.2 Flushing (principal); E53.8 Deficiency of other specified B group vitamins
CPT/HCPCS: 36415; 80053; 82607; 82746; 83001; 84443; 85025; 85652

== ENCOUNTER 2021-08-22 07:59 | Outpatient (REF) | payer MEDICARE, SELFPAY ==
[2021-08-22 08:14] LABS: MANUAL DIFF FLAG NO
[2021-08-22 08:25] LABS: Basophils Percent Auto 0.3 % (0-2); Eosinophils Absolute Auto 0.1 X10*3/uL (0.0-0.4); Eosinophils Percent Auto 1.4 % (0-4); Hematocrit 41.4 % (37.0-47.0); Hemoglobin 13.2 g/dl (12.0-16.0); Imm Gran Abs Auto 0.08 X10*3/uL (0.00-0.03); Imm Gran Pct Auto 1.1 % (0.0-0.4); Lymphocytes Absolute Auto 2.5 X10*3/uL (1.2-4.9); Lymphocytes Percent Auto 34.9 % (20-40); Mean Corpuscular HGB Conc 31.9 g/dl (31.0-35.0); Mean Corpuscular Hemoglobin 32.1 pg (27.0-33.0); Mean Corpuscular Volume 100.7 fL (80.0-98.0); Mean Platelet Volume 8.7 fL (9.4-12.3); Monocytes Absolute Auto 0.4 X10*3/uL (0.1-1.2); Monocytes Percent Auto 5.5 % (2-11); Neutrophils Percent Auto 56.8 % (45-73); Platelet Count 213 X10*3/uL (160-400); Red Blood Count 4.11 X10*6/uL (4.20-5.50); White Blood Count 7.1 X10*3/uL (4.8-10.8)
[2021-08-22 08:50] LABS: Estimated Average Glucose 177 mg/dL; Hemoglobin A1c % 7.8 %
[2021-08-22 08:53] LABS: Alanine Aminotransferase 13 U/L (0-31); Albumin Level 4.1 g/dL (3.5-5.0); Alkaline Phosphatase 78 U/L (39-117); Anion Gap 12 (12-20); Aspartate Amino Transferase 11 U/L (5-31); Bilirubin Total 0.4 mg/dL (0.0-1.0); Blood Urea Nitrogen 14 mg/dL (9-16); Calcium 9.7 mg/dL (8.4-10.2); Carbon Dioxide 31 mmol/L (22-29); Chloride 102 mmol/L (96-108); Cholesterol 135 mg/dL; Estimated Glomerular Filt Rate 59; Glucose Fasting 192 mg/dL (60-99); HDL Cholesterol 44 mg/dL; LDL Cholesterol Calculated 65 mg/dl; Potassium 4.3 mmol/L (3.3-5.1); Sodium 141 mmol/L (135-145); Total Protein 6.7 g/dL (6.5-8.0); Triglycerides 133 mg/dL
[2021-08-22 09:16] LABS: Free T4 (Free Thyroxine) 1.25 ng/dL (0.71-1.85); Thyroid Stimulating Hormone 3.85 uIU/mL (0.32-4.0)
[2021-08-23 09:18] LABS: Appearance Urine CLEAR; Color Urine YELLOW; Glucose Urine UA NEG (NEG); Leukocyte Esterase Urine NEG (NEG); Nitrite Urine NEG (NEG); PH 6.5 (5.0-8.0); Specific Gravity - Urine 1.015 (1.005-1.025); Urine Blood NEG (NEG); Urine Ketones 5 MG/DL (NEG); Urine Protein NEG (NEG-TRACE)
[2021-08-23 10:01] LABS: Creatinine Urine 67.22 mg/dL; Microalbumin Urine < 5.0 mg/L
== END 2021-08-22 08:00 | disposition home or self-care (01) ==
LOC: HO.LAB 07:59
PROVIDERS: PCP Internal Medicine; Visit Provider Internal Medicine
DX: E78.00 Pure hypercholesterolemia, unspecified (principal); E03.9 Hypothyroidism, unspecified; E11.9 Type 2 diabetes mellitus without complications; E55.9 Vitamin D deficiency, unspecified; I10 Essential (primary) hypertension
CPT/HCPCS: 36415; 80053; 80061; 81003; 82043; 82306; 83036; 84439; 84443; 85025

== ENCOUNTER 2021-09-05 13:12 | Outpatient (REF) | payer MEDICARE, SELFPAY ==
[2021-09-05 15:19] LABS: C Reactive Protein 0.16 mg/dL (< or = 0.50)
[2021-09-08 14:01] LABS: Transglutaminase Ab IgG <1.0 U/mL; Transglutaminase IgA <1.0 U/mL
== END 2021-09-05 13:13 | disposition home or self-care (01) ==
LOC: HO.LAB 13:12
PROVIDERS: PCP Internal Medicine; Referring Provider Internal Medicine; Visit Provider Nurse Practitioner
DX: K92.1 Melena (principal)
CPT/HCPCS: 36415; 86140; 86364; 99202

== ENCOUNTER 2021-09-07 10:00 | Outpatient (REF) | payer MEDICARE, SELFPAY ==
[2021-09-08 14:22] LABS: FIT Int Ctl YES; FIT1 NEGATIVE (NEGATIVE); FIT2 POSITIVE (NEGATIVE)
== END 2021-09-07 10:01 | disposition home or self-care (01) ==
LOC: HO.LNP 10:00
PROVIDERS: Visit Provider Nurse Practitioner
DX: R19.5 Other fecal abnormalities (principal)
CPT/HCPCS: 82274; 87045; 87046; 87338

== ENCOUNTER 2021-09-08 10:58 | Outpatient (REF) | payer MEDICARE, SELFPAY | END 2021-09-08 10:59 | disposition home or self-care (01) | LOC: HO.LNP 10:58 | PROVIDERS: Visit Provider Nurse Practitioner | DX: Z13.89 Encounter for screening for other disorder (principal) ==

== ENCOUNTER 2021-09-12 | Outpatient (REF) | payer MEDICARE, SELFPAY ==
[2021-09-19 07:47] LABS: FIT1 NEGATIVE (NEGATIVE)
[2021-09-19 07:48] LABS: FIT Int Ctl YES; FIT2 NEGATIVE (NEGATIVE)
== END 2021-09-12 00:01 | disposition home or self-care (01) ==
LOC: HO.LNP
PROVIDERS: Visit Provider Nurse Practitioner
DX: K92.1 Melena (principal)
CPT/HCPCS: 82274

== ENCOUNTER 2021-09-12 14:13 | Outpatient (REF) | payer MEDICARE, SELFPAY | END 2021-09-12 14:14 | disposition home or self-care (01) | LOC: HO.LNP 14:13 | PROVIDERS: Visit Provider Nurse Practitioner | DX: K92.1 Melena (principal) | CPT/HCPCS: 87045; 87046 ==

== ENCOUNTER 2021-10-14 08:55 | Emergency (ER) | payer MEDICARE, SELFPAY ==
--- NOTE | ~2021-10-14 | XR_ITS ---
EXAMINATION: XR CHEST, 2 VIEWS CLINICAL INFORMATION: Chest pain COMPARISON: 09/07/2020 TECHNIQUE: PA and lateral views of the chest were obtained. FINDINGS: Lungs are mildly hyperexpanded clear. No consolidation, pneumothorax, or pleural effusion. Cardiac and mediastinal contours are normal. Pulmonary vasculature is unremarkable. Trachea is midline. Mild degenerative spondylosis in the thoracic spine. XR/XR chest 2V IMPRESSION: No acute cardiopulmonary findings.
--- NOTE | 2021-10-14 09:00 | ECG_ITS ---
Test Reason : chest pain Blood Pressure : / mmHG Vent. Rate : 062 BPM Atrial Rate : 062 BPM P-R Int : 190 ms QRS Dur : 090 ms QT Int : 418 ms P-R-T Axes : 062 006 017 degrees QTc Int : 424 ms Normal sinus rhythm Nonspecific ST and T wave abnormality Abnormal ECG When compared with ECG of 07-SEP-2020 17:09, No significant change was found Referred By: Madiha Haro Electronically Signed By:ANUJ TEAGUE
[2021-10-14 09:08] VITALS: BP 150/56; PULSE 65; PULSE 69; RESP 19; TEMP 36.5; O2SAT 93; BMI 33.6
[2021-10-14 09:12] VITALS: PULSE 61
[2021-10-14 09:17] LABS: Glucose, Whole Blood 318 mg/dL (60-115)
--- NOTE | 2021-10-14 09:30 | ED.CHESTPAIN ---
HPI - Chest Pain General Chief Complaint: Chest Pain Stated Complaint: chest pain Time Seen by Provider: 10/14/21 08:58 Source: patient and EMS Mode of arrival: EMS History of Present Illness HPI narrative: 76-year-old female with a past medical history of paroxysmal atrial fibrillation currently on Eliquis taking as prescribed, hypertension, hypercholesterolemia, diabetes, obesity, bipolar disorder, anemia, hypothyroidism, high bilirubin levels, anemia, and gait instability presenting to the ED via EMS with complaints of midsternal/left-sided chest pain that started last night and has been intermittent although has been constant since a.m. this morning. Reports that while she was watching TV last night she started developing a left-sided chest pain that has now radiated to her mid sternal aspect. She reports that she took her Eliquis in her pain subsided. Then she woke up this morning around 6-7 a.m. and she had the chest pain she took her Eliquis and her chest pain resolved although around 08:00 her chest pain started again and since then has been constant. She denies any fevers, chills, dizziness, headaches, neck pain/stiffness, trouble swallowing or breathing, jaw pain, nausea/vomiting, dyspnea on exertion, orthopnea, palpitations, radiation of the chest pain, extremity edema, abdominal pain, back pain, rashes, recent falls or trauma, lower extremity edema or calf tenderness, abdominal pain, black or bloody stools or any other symptoms complaints or concerns at this time. Denies recent travel or sick contacts. MD complaint: chest pain Onset (ago): day(s) (2) Timing of current episode: other (It was episodic since last night although constant since 8 a.m. this morning) Prior episodes: Yes Onset: during rest Pain location: substernal and left chest Pain radiation: none Severity: moderate Quality: sharp Relieving factors: nothing Exacerbating factors: nothing Associated symptoms: nausea Treatment prior to arrival: other (Her Eliquis) Risk Factors Coronary artery disease risk factors: diabetes, hyperlipidemia and hypertension Thoracic aortic dissection risk factors: none Related Data On Oral Contraceptives: No Home Medications Medication Instructions Recorded Confirmed lancing device with lancets kit #1 ea 05/11/20 09/01/21 (Cloubrain Lanc Device) metoprolol tartrate 25 mg tablet 25 mg PO DAILY 10/26/20 09/01/21 perphenazine 4 mg tablet 4 mg PO BID tab 05/03/21 09/01/21 Previous Rx's Medication Instructions Recorded lancets 33 gauge #100 ea 05/11/20 lancets 30 gauge (OneTouch Delica See Rx Instructions .ROUTE TID 10/19/20 Plus Lancet) #300 cap blood sugar diagnostic (OneTouch 1 strip MISCELLANEOUS TID #300 11/03/20 Verio test strips) strip ascorbic acid (vitamin C) 500 mg 500 mg PO DAILY #90 tab 03/24/21 tablet (Vitamin C) cholecalciferol (vitamin D3) 25 25 mcg PO DAILY #90 tab 03/26/21 mcg (1,000 unit) tablet (Vitamin D3) pantoprazole 40 mg tablet,delayed 40 mg PO DAILY #90 tab 05/08/21 release ferrous fumarate 324 mg (106 mg 324 mg PO DAILY #100 tab 06/23/21 iron) tablet (Ferrocite) atorvastatin 40 mg tablet 40 mg PO DAILY #90 tab 06/30/21 oxybutynin chloride 5 mg tablet 5 mg PO BID #180 tab 06/30/21 gabapentin 100 mg capsule 100 mg PO TID 30 Days #90 cap 07/13/21 levothyroxine 100 mcg tablet 100 mcg PO DAILY #90 tab 07/21/21 peg 3350-electrolytes 236 240 ml PO Q10M 1 Days #4000 ml 09/05/21 gram-22.74 gram-6.74 gram-5.86 gram solution (Golytely) nystatin 100,000 unit/gram topical 1 appl TOPICAL BID #15 g 09/07/21 powder apixaban 5 mg tablet (Eliquis) 5 mg PO BID #60 tab 09/11/21 risperidone 1 mg tablet 1 mg PO BID #60 tab 09/29/21 buspirone 5 mg tablet 5 mg PO BID #60 tab 10/03/21 metformin 500 mg tablet,extended 500 mg PO BID #180 tab 10/09/21 release 24 hr divalproex 500 mg tablet,extended 500 mg PO BID #60 tab 10/12/21 release 24 hr Allergies Allergy/AdvReac Type Severity Reaction Status Date / Time amoxicillin [Amoxicillin] Allergy Intermediate SWELLING, Verified 10/14/21 09:08 rash Sulfa (Sulfonamide Allergy Intermediate itching & Verified 10/14/21 09:08 Antibiotics) bruising codeine [CODEINE] Allergy Unknown RASH Verified 10/14/21 09:08 dicyclomine Allergy Unknown Unknown Verified 10/14/21 09:08 lidocaine [LIDOCAINE] Allergy Unknown UNKNOWN Verified 10/14/21 09:08 lithium [LITHIUM] AdvReac Severe NEPHROGENIC Verified 10/14/21 09:08 DIABETES INSIPIDUS meclizine [Meclizine] AdvReac Intermediate INCREASES Verified 10/14/21 09:08 DIZZINESS simvastatin [SIMVASTATIN] AdvReac Intermediate MYALGIAS Verified 10/14/21 09:08 metronidazole [METRONIDAZOLE] AdvReac Mild FLU LIKE Verified 10/14/21 09:08 SYMPTOMS acyclovir AdvReac Unknown Unknown Verified 10/14/21 09:08 Review of Systems Review of Systems: Constitutional : No Weight loss, No Fever, No Chills, No Night Sweats, No Fatigue, No Malaise ENT/Mouth : No Hearing loss, No Ear Pain, No Nasal Congestion, No Sinus Pain, No Hoarseness, No sore throat, No Rhinorrhea, No Swallowing Difficulty Eyes: No Eye Pain, No Swelling, No Redness, No Foreign Body, No Discharge, No Vision Changes Cardiovascular : + Chest Pain, No SOB, No Dyspnea on Exertion, No Orthopnea, No Edema, No Palpitations Respiratory : No Cough, No Sputum, No Wheezing, No Smoke Exposure, No Dyspnea Gastrointestinal : No Nausea, No Vomiting, No Diarrhea, No Constipation, No abdominal Pain, No Hematochezia, No Melena Genitourinary : no irregular bleeding, No Dysuria, No Urinary Frequency, No Hematuria, No Urinary Incontinence, No Urgency, No Flank Pain, No Urinary Flow Changes, No Hesitancy Musculoskeletal : No joint pain, No Myalgias, No Joint Swelling Skin : No Skin Lesions, No rash Neuro : No Weakness, No Numbness, No Paresthesias, No Loss of Consciousness, No Dizziness, No Headache Psych : No Anxiety/Panic, No Depression, No SI/HI/AH/VH, No Social Issues, Heme/Lymph: No Bruising, No Bleeding,No Lymphadenopathy Endocrine : No Polyuria, No Polydipsia, No Temperature Intolerance Yes all other systems are reviewed and are negative PMFSH Past Medical History Attestation statement: The following information was validated with the patient. Medical History Acquired hypothyroidism Allergic rhinitis Anemia Bipolar disorder Diabetes mellitus Gait instability GERD without esophagitis High bilirubin History of vitamin D deficiency Hx of diabetes insipidus Hx of strabismus Hypertension Intertrigo Obesity (BMI 30-39.9) PAF (paroxysmal atrial fibrillation) Pain of left lower extremity Pure hypercholesterolemia Vaginal pain Surgical History History of eye surgery History of left breast biopsy Hx of cataract surgery (~07/2017) Hx of colonoscopy Hx of dilation and curettage Family History Family History Father History of cerebral hemorrhage Mother History of cerebral hemorrhage Sister Breast cancer Social History Social History Household Members: Spouse Housing: Apartment Do you presently have visiting nurse or other home services: Yes Alcohol intake: never Patient Tobacco Use Status: Former Tobacco user Second Hand Smoke Exposure: Yes Advance Directives: Yes Advance Directives on File: Yes Advance Directives Date on File: 08/24/20 service: No Current occupational status: retired Physical Exam Vital Signs: Vital Signs: Last Vital Signs Temp 97.7 F 10/14/21 09:08 Pulse 66 10/14/21 11:13 Resp 15 10/14/21 11:13 BP 156/73 H 10/14/21 11:42 Pulse Ox 96 10/14/21 11:13 BMI result Body Mass Index 33.6 vital signs have been reviewed as normal and appeared to be correct. Blood pressure 150/56. Heart rate normal. Respiration rate normal. Temperature normal. Oxygen saturation normal. Appearance: Alert. Oriented X3. No acute distress. Head: Normal external exam. Normocephalic. Atraumatic. Eyes: PERRLA. EOMI. Conjunctiva and sclera normal. Eyelids normal. ENT: Pharynx normal. Uvula midline. Moist mucous membranes. No lesions/ulcerations or masses noted on the tongue. Normal voice. No trismus noted. No drooling noted. No muffled voice noted. Neck: Normal inspection. Neck supple. FROM. No adenopathy. Thyroid Normal. No tracheal deviation noted. No crepitus is noted. No meningeal signs. No neck mass noted. No signs of trauma noted. CVS: Normal heart rate and rhythm. Heart sound normal. Pulses normal throughout. No murmurs/rales/gallops. Respiratory: No respiratory distress. Painless inspiration. Breath sounds normal. No wheezes/rales/rhonchi noted. Chest nontender. No crepitus is noted. No signs of trauma noted. No accessory muscle usage noted or decreased air movement noted. No signs of trauma. Abdomen: Soft and nontender. Bowel sounds normal in all 4 quadrants. No distention noted. No organomegaly noted. No visible injury noted. Back: No CVA tenderness. Full range of motion noted. Nontender. No signs of trauma. Patient neuro intact bilaterally and distally on all 4 extremities. Patient's reflexes intact bilaterally and distally on all 4 extremities. No rashes/lesion/induration/fluctuance or signs of infection noted. Skin: Skin warm and dry. Normal skin color. Normal skin turgor. No rashes/lesions/lacerations noted. Extremities: No lower extremity edema. No calf tenderness is noted. Extremities exhibit normal range of motion and nontender. Neuro: Oriented X 3. No motor deficit. No sensory deficit. Reflexes normal. Normal steady gait. No focal neuro deficits noted. CN's II-XII intact bilaterally? Vascular: + radial pulses/+ 2 distal pedal pulses/+2 dorsalis pedis b/l. Normal cap refill. No cyanosis noted to upper extremity nails and lower extremity toes nails. Course Course Course Narrative: 9am 76-year-old female with a past medical history of paroxysmal atrial fibrillation currently on Eliquis taking as prescribed, hypertension, hypercholesterolemia, diabetes, obesity, bipolar disorder, anemia, hypothyroidism, high bilirubin levels, anemia, and gait instability presenting to the ED via EMS with complaints of midsternal/left-sided chest pain that started last night and has been intermittent although has been constant since a.m. this morning. Reports that while she was watching TV last night she started developing a left-sided chest pain that has now radiated to her mid sternal aspect. She reports that she took her Eliquis in her pain subsided. Then she woke up this morning around 6-7 a.m. and she had the chest pain she took her Eliquis and her chest pain resolved although around 08:00 her chest pain started again and since then has been constant. When I reviewed the patient's chart it appears that she was admitted here for similar complaint August 2020. She had an echocardiogram on 09/07/2020 which revealed an ejection fraction of 50-55% with normal left ventricular systolic function and mild diastolic dysfunction. She had a Holter monitor on 02/02/2021 that revealed Baseline rhythm is normal sinus rhythm with average heart rate of 67 beats per minute.? No significant bradycardia or pauses noted. Overall burden of PVC is rare with total burden of 0.57%.? No ventricular tachyarrhythmias noted. Overall burden of PACs is rare, short burst of SVTs are suggestive of atrial fibrillation with longest lasting 18 beats.? There were no sustained episodes of atrial fibrillation.? Patient reported multiple events that correlated with sinus rhythm Plan: Labs, EKG, chest x-ray provide a L of IV fluids and re-evaluate. Reevaluation(s) Reevaluation #1: - patient is still complaining of chest pain therefore will give Tylenol. - otherwise all her glucose level is 318 and all her other labs are within normal limits including troponin and BNP. UA revealed 100 glucose otherwise no evidence of UTI. Patient negative for COVID. EKG is within normal limits no acute processes noted and similar compared to prior. Chest x-ray within normal limits. - awaiting repeat troponin. Time: 11:49 Reevaluation #2: - repeat troponin negative less than 3.5 taken 3 times. Patient reports that she no longer has chest pain therefore most likely esophageal spasm or muscular pain. Will DC home with instructions return if any new or worsening symptoms to follow up with PCP/benefits specialist. And to continue taking her previously prescribed medications as previously prescribed. Patient and at bedside understand and agree this plan. Time: 12:37 [facility] - Chest Pain Medical Records Data Attestation: I reviewed the patient's medical records. Lab Data Attestation: I reviewed the patient's lab results. Result diagrams: 10/14/21 09:39 10/14/21 09:39 Labs: Lab Results 10/14/21 10/14/21 10/14/21 Range/Units 09:13 09:34 09:39 WBC 8.5 (4.8-10.8) X10*3/uL RBC 3.96 L (4.20-5.50) X10*6/uL Hgb 12.9 (12.0-16.0) g/dl Hct 39.5 (37.0-47.0) % MCV 99.7 H (80.0-98.0) fL MCH 32.6 (27.0-33.0) pg MCHC 32.7 (31.0-35.0) g/dl RDW 12.8 (11.0-16.0) % Plt Count 208 (160-400) X10*3/uL MPV 8.8 L (9.4-12.3) fL Immature Gran % (Auto) 0.8 H (0.0-0.4) % Neut % (Auto) 64.8 (45-73) % Lymph % (Auto) 26.7 (20-40) % [place] % (Auto) 6.3 (2-11) % Eos % (Auto) 1.2 (0-4) % Baso % (Auto) 0.2 (0-2) % Lymph # (Auto) 2.3 (1.2-4.9) X10*3/uL [place] # (Auto) 0.5 (0.1-1.2) X10*3/uL Eos # (Auto) 0.1 (0.0-0.4) X10*3/uL Baso # (Auto) 0.0 (0.0-0.2) X10*3/uL Abs Immat Gran (auto) 0.07 H (0.00-0.03) X10*3/uL Absolute Neuts (auto) 5.5 (2.0-8.3) x10*3/uL Absolute Nucleated RBC 0.000 (0.0-0.012) X10*3/uL Nucleated RBC % (auto) 0.0 (0.0-0.2) /100WBC PT (9.9-13.0) SEC INR (0.9-1.1) Sodium (135-145) mmol/L Potassium (3.3-5.1) mmol/L Chloride (96-108) mmol/L Carbon Dioxide (22-29) mmol/L Anion Gap (12-20) BUN (9-16) mg/dL Creatinine (0.5-1.4) mg/dL Estim Creat Clear Calc Estimated GFR POC Glucose 318 H (60-115) mg/dL Random Glucose (60-115) mg/dL Calcium (8.4-10.2) mg/dL Magnesium (1.6-2.6) mg/dL Total Bilirubin (0.0-1.0) mg/dL AST (5-31) U/L ALT (0-31) U/L Alkaline Phosphatase (39-117) U/L Troponin I High Sens (<3.5-17.0) ng/L B-Natriuretic Peptide (<100) pg/mL Total Protein (6.5-8.0) g/dL Albumin (3.5-5.0) g/dL Urine Color STRAW Urine Appearance CLEAR Urine pH 6.0 (5.0-8.0) Ur Specific [place] <= 1.005 (1.005-1.025) Urine Protein NEG (NEG-TRACE) MG/DL Urine Glucose (UA) 100 H (NEG) MG/DL Urine Ketones NEG (NEG) MG/DL Urine Blood TRACE (NEG) Urine Nitrite NEG (NEG) Ur Leukocyte Esterase NEG (NEG) Urine RBC 0-2 (0) /HPF Urine WBC 0 (0-4) /HPF Ur Squamous Epith Cells TRACE /LPF Urine Bacteria TRACE /LPF COVID-19 ([facility]) (Negative) COVID-19 Clin Com 10/14/21 10/14/21 10/14/21 Range/Units 09:39 09:39 09:39 WBC (4.8-10.8) X10*3/uL RBC (4.20-5.50) X10*6/uL Hgb (12.0-16.0) g/dl Hct (37.0-47.0) % MCV (80.0-98.0) fL MCH (27.0-33.0) pg MCHC (31.0-35.0) g/dl RDW (11.0-16.0) % Plt Count (160-400) X10*3/uL MPV (9.4-12.3) fL Immature Gran % (Auto) (0.0-0.4) % Neut % (Auto) (45-73) % Lymph % (Auto) (20-40) % [place] % (Auto) (2-11) % Eos % (Auto) (0-4) % Baso % (Auto) (0-2) % Lymph # (Auto) (1.2-4.9) X10*3/uL [place] # (Auto) (0.1-1.2) X10*3/uL Eos # (Auto) (0.0-0.4) X10*3/uL Baso # (Auto) (0.0-0.2) X10*3/uL Abs Immat Gran (auto) (0.00-0.03) X10*3/uL Absolute Neuts (auto) (2.0-8.3) x10*3/uL Absolute Nucleated RBC (0.0-0.012) X10*3/uL Nucleated RBC % (auto) (0.0-0.2) /100WBC PT 12.6 (9.9-13.0) SEC INR 1.1 (0.9-1.1) Sodium 138 (135-145) mmol/L Potassium 4.5 (3.3-5.1) mmol/L Chloride 103 (96-108) mmol/L Carbon Dioxide 26 (22-29) mmol/L Anion Gap 14 (12-20) BUN 13 (9-16) mg/dL Creatinine 1.04 (0.5-1.4) mg/dL Estim Creat Clear Calc 55.0 Estimated GFR 52 POC Glucose (60-115) mg/dL Random Glucose 304 H (60-115) mg/dL Calcium 9.5 (8.4-10.2) mg/dL Magnesium 1.6 (1.6-2.6) mg/dL Total Bilirubin 0.3 (0.0-1.0) mg/dL AST 12 (5-31) U/L ALT 13 (0-31) U/L Alkaline Phosphatase 75 (39-117) U/L Troponin I High Sens < 3.5 (<3.5-17.0) ng/L B-Natriuretic Peptide 12 (<100) pg/mL Total Protein 6.7 (6.5-8.0) g/dL Albumin 3.9 (3.5-5.0) g/dL Urine Color Urine Appearance Urine pH (5.0-8.0) Ur Specific [place] (1.005-1.025) Urine Protein (NEG-TRACE) MG/DL Urine Glucose (UA) (NEG) MG/DL Urine Ketones (NEG) MG/DL Urine Blood (NEG) Urine Nitrite (NEG) Ur Leukocyte Esterase (NEG) Urine RBC (0) /HPF Urine WBC (0-4) /HPF Ur Squamous Epith Cells /LPF Urine Bacteria /LPF COVID-19 ([facility]) (Negative) COVID-19 Clin Com 10/14/21 10/14/21 10/14/21 Range/Units 09:54 10:33 11:58 WBC (4.8-10.8) X10*3/uL RBC (4.20-5.50) X10*6/uL Hgb (12.0-16.0) g/dl Hct (37.0-47.0) % MCV (80.0-98.0) fL MCH (27.0-33.0) pg MCHC (31.0-35.0) g/dl RDW (11.0-16.0) % Plt Count (160-400) X10*3/uL MPV (9.4-12.3) fL Immature Gran % (Auto) (0.0-0.4) % Neut % (Auto) (45-73) % Lymph % (Auto) (20-40) % [place] % (Auto) (2-11) % Eos % (Auto) (0-4) % Baso % (Auto) (0-2) % Lymph # (Auto) (1.2-4.9) X10*3/uL [place] # (Auto) (0.1-1.2) X10*3/uL Eos # (Auto) (0.0-0.4) X10*3/uL Baso # (Auto) (0.0-0.2) X10*3/uL Abs Immat Gran (auto) (0.00-0.03) X10*3/uL Absolute Neuts (auto) (2.0-8.3) x10*3/uL Absolute Nucleated RBC (0.0-0.012) X10*3/uL Nucleated RBC % (auto) (0.0-0.2) /100WBC PT (9.9-13.0) SEC INR (0.9-1.1) Sodium (135-145) mmol/L Potassium (3.3-5.1) mmol/L Chloride (96-108) mmol/L Carbon Dioxide (22-29) mmol/L Anion Gap (12-20) BUN (9-16) mg/dL Creatinine (0.5-1.4) mg/dL Estim Creat Clear Calc Estimated GFR POC Glucose (60-115) mg/dL Random Glucose (60-115) mg/dL Calcium (8.4-10.2) mg/dL Magnesium (1.6-2.6) mg/dL Total Bilirubin (0.0-1.0) mg/dL AST (5-31) U/L ALT (0-31) U/L Alkaline Phosphatase (39-117) U/L Troponin I High Sens < 3.5 < 3.5 (<3.5-17.0) ng/L B-Natriuretic Peptide (<100) pg/mL Total Protein (6.5-8.0) g/dL Albumin (3.5-5.0) g/dL Urine Color Urine Appearance Urine pH (5.0-8.0) Ur Specific [place] (1.005-1.025) Urine Protein (NEG-TRACE) MG/DL Urine Glucose (UA) (NEG) MG/DL Urine Ketones (NEG) MG/DL Urine Blood (NEG) Urine Nitrite (NEG) Ur Leukocyte Esterase (NEG) Urine RBC (0) /HPF Urine WBC (0-4) /HPF Ur Squamous Epith Cells /LPF Urine Bacteria /LPF COVID-19 ([facility]) Negative (Negative) COVID-19 Clin Com See Note Imaging Data Chest x-ray: Attestation: I personally reviewed and interpreted this imaging study as follows: Radiologist's impression: FINDINGS: Lungs are mildly hyperexpanded clear. No consolidation, pneumothorax, or pleural effusion. Cardiac and mediastinal contours are normal. Pulmonary vasculature is unremarkable. Trachea is midline. Mild degenerative spondylosis in the thoracic spine. XR/XR chest 2V IMPRESSION: No acute cardiopulmonary findings. ECG Data ECG #1: Attestation: I personally reviewed and interpreted this ECG as follows: ECG interpretation date: 10/14/21 ECG interpretation time: 09:08 Interpretation: Normal sinus rhythm with a ventricular rate of [address] and T-wave abnormalities no acute ischemic change are noted. Similar compared to prior EKG 09/07/2020. Discharge Plan Discharge Clinical Impression: Atypical chest pain Patient Disposition: Home, Self-Care Instructions: Noncardiac Chest Pain (ED) Prescriptions: No Action (DME) lancets 33 gauge misc See Rx Instructions .ROUTE .MEDSUPPLY Qty: 100 0RF Rx Instructions: As directed (DME) lancing device with lancets [Thrillist.comTouch Delica Lanc Device] Kit See Rx Instructions .ROUTE .MEDSUPPLY Qty: 1 0RF Rx Instructions: As directed lancets [OneTouch Delica Plus Lancet] 30 gauge misc See Rx Instructions .ROUTE TID Qty: 300 3RF Rx Instructions: 3 times a day; blood sugar diagnostic [[employer] Verio test strips] Strip 1 strip miscellaneous TID Qty: 300 3RF ascorbic acid (vitamin C) [Vitamin C] 500 mg tablet 500 mg PO DAILY Qty: 90 3RF cholecalciferol (vitamin D3) [Vitamin D3] 25 mcg (1,000 unit) tablet 25 mcg PO DAILY Qty: 90 5RF pantoprazole 40 mg tablet,delayed release (DR/EC) 40 mg PO DAILY Qty: 90 2RF ferrous fumarate [Ferrocite] 324 mg (106 mg iron) tablet 324 mg PO DAILY Qty: 100 2RF atorvastatin 40 mg tablet 40 mg PO DAILY Qty: 90 3RF oxybutynin chloride 5 mg tablet 5 mg PO BID Qty: 180 1RF levothyroxine 100 mcg tablet 100 mcg PO DAILY Qty: 90 1RF nystatin 100,000 unit/gram powder 1 appl topical BID Qty: 15 1RF Eliquis 5 mg tablet 5 mg PO BID Qty: 60 2RF risperidone 1 mg tablet 1 mg PO BID Qty: 60 0RF buspirone 5 mg tablet 5 mg PO BID Qty: 60 0RF metformin 500 mg tablet extended release 24 hr 500 mg PO BID Qty: 180 0RF divalproex 500 mg tablet extended release 24 hr 500 mg PO BID Qty: 60 1RF metoprolol tartrate 25 mg tablet 25 mg PO DAILY 0RF gabapentin 100 mg capsule 100 mg PO TID 30 Days Qty: 90 3RF perphenazine 4 mg tablet 4 mg PO BID 0RF peg 3350-electrolytes [Golytely] 236-22.74-6.74 -5.86 gram recon soln 240 ml PO Q10M 1 Days Qty: 4000 0RF Rx Instructions: until fecal effluent is clear; do not exceed a total volume of 2,000 mL Referrals: Brown Dickson MD [Primary Care Provider] - Print Language: Luxembourger
[2021-10-14 09:44] LABS: MANUAL DIFF FLAG NO
[2021-10-14 09:45] LABS: Basophils Percent Auto 0.2 % (0-2); Eosinophils Absolute Auto 0.1 X10*3/uL (0.0-0.4); Eosinophils Percent Auto 1.2 % (0-4); Hematocrit 39.5 % (37.0-47.0); Hemoglobin 12.9 g/dl (12.0-16.0); Imm Gran Abs Auto 0.07 X10*3/uL (0.00-0.03); Imm Gran Pct Auto 0.8 % (0.0-0.4); Lymphocytes Absolute Auto 2.3 X10*3/uL (1.2-4.9); Lymphocytes Percent Auto 26.7 % (20-40); Mean Corpuscular HGB Conc 32.7 g/dl (31.0-35.0); Mean Corpuscular Hemoglobin 32.6 pg (27.0-33.0); Mean Corpuscular Volume 99.7 fL (80.0-98.0); Mean Platelet Volume 8.8 fL (9.4-12.3); Monocytes Absolute Auto 0.5 X10*3/uL (0.1-1.2); Monocytes Percent Auto 6.3 % (2-11); Neutrophils Absolute Auto 5.5 x10*3/uL (2.0-8.3); Neutrophils Percent Auto 64.8 % (45-73); Platelet Count 208 X10*3/uL (160-400); Red Blood Count 3.96 X10*6/uL (4.20-5.50); Red Cell Distribution Width 12.8 % (11.0-16.0); White Blood Count 8.5 X10*3/uL (4.8-10.8)
[2021-10-14 09:50] LABS: Appearance Urine CLEAR; Color Urine STRAW; Glucose Urine UA 100 MG/DL (NEG); Leukocyte Esterase Urine NEG (NEG); Nitrite Urine NEG (NEG); Specific Gravity - Urine <= 1.005 (1.005-1.025); UACC Culture Trigger NO; Urine Blood TRACE (NEG); Urine Ketones NEG (NEG); Urine Protein NEG (NEG-TRACE)
[2021-10-14 09:52] LABS: INTERNATIONAL NORM RATIO 1.1 (0.9-1.1); Prothrombin Time 12.6 SEC (9.9-13.0)
[2021-10-14 10:03] LABS: RBC Urine 0-2 /HPF (0); WBC Urine 0 /HPF (0-4)
[2021-10-14 10:04] LABS: Bacteria Urine TRACE /LPF; Squamous Epithelial Cell Urine TRACE /LPF
[2021-10-14] MEDS: 0.9 % Sodium Chloride 1,000 ML 999 ML IVCONT (10:04)
[2021-10-14 10:07] LABS: Alanine Aminotransferase 13 U/L (0-31); Albumin Level 3.9 g/dL (3.5-5.0); Alkaline Phosphatase 75 U/L (39-117); Anion Gap 14 (12-20); Aspartate Amino Transferase 12 U/L (5-31); Bilirubin Total 0.3 mg/dL (0.0-1.0); Blood Urea Nitrogen 13 mg/dL (9-16); Calcium 9.5 mg/dL (8.4-10.2); Carbon Dioxide 26 mmol/L (22-29); Chloride 103 mmol/L (96-108); Estimated Glomerular Filt Rate 52; Glucose Random 304 mg/dL (60-115); Magnesium 1.6 mg/dL (1.6-2.6); Potassium 4.5 mmol/L (3.3-5.1); Sodium 138 mmol/L (135-145); Total Protein 6.7 g/dL (6.5-8.0)
[2021-10-14 10:11] LABS: B Type Natriuretic Peptide 12 pg/mL (<100); Troponin-I High Sensitivity < 3.5 ng/L (<3.5-17.0)
[2021-10-14 10:24] LABS: COVID-19 Test Negative (Negative); IDNOW Serial# 16C4AD1C
[2021-10-14 11:01] LABS: Troponin-I High Sensitivity < 3.5 ng/L (<3.5-17.0)
[2021-10-14 11:13] VITALS: BP 177/75; PULSE 66; RESP 15; O2SAT 96
[2021-10-14 11:42] VITALS: BP 156/73
[2021-10-14] MEDS: Acetaminophen 325 MG TABLET 975 MG PO (11:50)
[2021-10-14 12:26] LABS: Troponin-I High Sensitivity < 3.5 ng/L (<3.5-17.0)
== END 2021-10-14 13:22 | disposition home or self-care (01) ==
PROVIDERS: Physician Assistant Medical; Emergency Provider Emergency Medicine; PCP Internal Medicine
DX: R07.89 Other chest pain (principal); I48.0 Paroxysmal atrial fibrillation; I10 Essential (primary) hypertension; E11.9 Type 2 diabetes mellitus without complications; Z79.01 Long term (current) use of anticoagulants; Z20.822 Contact with and (suspected) exposure to COVID-19
CPT/HCPCS: 36415; 71046; 80053; 81001; 82947; 83735; 83880; 84484; 85025; 85610; 87635; 93005; 96360; 99284; 99285

== ENCOUNTER → 2021-11-22 13:11 | Outpatient (BNVA) | payer MEDICARE, SELFPAY | PROVIDERS: PCP Internal Medicine; Referring Provider Internal Medicine; Visit Provider Nurse Practitioner Family | DX: R07.89 Other chest pain (principal); I48.0 Paroxysmal atrial fibrillation; I10 Essential (primary) hypertension; E78.00 Pure hypercholesterolemia, unspecified | CPT/HCPCS: 99212; Q3014 ==

== ENCOUNTER 2021-11-30 08:58 | Outpatient (REF) | payer MEDICARE, SELFPAY ==
[2021-11-30 09:17] LABS: MANUAL DIFF FLAG NO
[2021-11-30 10:01] LABS: Basophils Percent Auto 0.4 % (0-2); Eosinophils Absolute Auto 0.1 X10*3/uL (0.0-0.4); Eosinophils Percent Auto 1.3 % (0-4); Hematocrit 41.6 % (37.0-47.0); Hemoglobin 13.5 g/dl (12.0-16.0); Imm Gran Abs Auto 0.09 X10*3/uL (0.00-0.03); Imm Gran Pct Auto 1.1 % (0.0-0.4); Lymphocytes Absolute Auto 2.5 X10*3/uL (1.2-4.9); Lymphocytes Percent Auto 31.5 % (20-40); Mean Corpuscular HGB Conc 32.5 g/dl (31.0-35.0); Mean Corpuscular Volume 98.6 fL (80.0-98.0); Mean Platelet Volume 9.3 fL (9.4-12.3); Monocytes Absolute Auto 0.5 X10*3/uL (0.1-1.2); Monocytes Percent Auto 6.3 % (2-11); Neutrophils Absolute Auto 4.7 x10*3/uL (2.0-8.3); Neutrophils Percent Auto 59.4 % (45-73); Platelet Count 234 X10*3/uL (160-400); Red Blood Count 4.22 X10*6/uL (4.20-5.50); Red Cell Distribution Width 12.9 % (11.0-16.0); White Blood Count 7.8 X10*3/uL (4.8-10.8)
[2021-11-30 10:10] LABS: Estimated Average Glucose 240 mg/dL
[2021-11-30 10:22] LABS: Creatinine Urine 88.39 mg/dL; Microalbum/Creatinine Ratio Ur 5.6 ug/mg cr
[2021-11-30 10:23] LABS: Appearance Urine HAZY; Color Urine YELLOW; Glucose Urine UA NEG (NEG); Leukocyte Esterase Urine NEG (NEG); Nitrite Urine NEG (NEG); PH 6.5 (5.0-8.0); UACC Culture Trigger NO; Urine Blood TRACE (NEG); Urine Ketones NEG (NEG); Urine Protein NEG (NEG-TRACE)
[2021-11-30 10:28] LABS: Alanine Aminotransferase 13 U/L (0-31); Albumin Level 4.3 g/dL (3.5-5.0); Alkaline Phosphatase 77 U/L (39-117); Anion Gap 15 (12-20); Aspartate Amino Transferase 12 U/L (5-31); Bilirubin Total 0.5 mg/dL (0.0-1.0); Blood Urea Nitrogen 12 mg/dL (9-16); Calcium 9.6 mg/dL (8.4-10.2); Carbon Dioxide 31 mmol/L (22-29); Chloride 99 mmol/L (96-108); Cholesterol 144 mg/dL; Estimated Glomerular Filt Rate 49; Glucose Fasting 283 mg/dL (60-99); HDL Cholesterol 45 mg/dL; LDL Cholesterol Calculated 61 mg/dl; Potassium 4.8 mmol/L (3.3-5.1); Sodium 140 mmol/L (135-145); Total Protein 7.1 g/dL (6.5-8.0); Triglycerides 190 mg/dL
[2021-11-30 10:37] LABS: WBC Urine 0 /HPF (0-4)
[2021-11-30 10:38] LABS: Bacteria Urine 1+ /LPF; Squamous Epithelial Cell Urine 1+ /LPF
[2021-11-30 10:50] LABS: TSH reflex Free T4 8.42 uIU/mL (0.32-4.0); Vitamin D 25-OH Total 44.6 ng/mL (>30)
[2021-11-30 11:34] LABS: Free T4 (Free Thyroxine) 1.06 ng/dL (0.71-1.85)
== END 2021-11-30 08:59 | disposition home or self-care (01) ==
LOC: HO.LAB 08:58
PROVIDERS: PCP Internal Medicine; Visit Provider Internal Medicine
DX: E11.9 Type 2 diabetes mellitus without complications (principal); I10 Essential (primary) hypertension; E55.9 Vitamin D deficiency, unspecified; E78.00 Pure hypercholesterolemia, unspecified
CPT/HCPCS: 36415; 80053; 80061; 81001; 81003; 82043; 82306; 83036; 84439; 84443; 85025

== ENCOUNTER 2022-02-09 10:21 | Day surgery (SDC) | payer MEDICARE, SELFPAY ==
[2022-01-23 14:54] VITALS: BMI 32.2
[2022-02-09] MEDS: Lactated Ringers 1,000 ML 100 ML IVCONT (11:08)
[2022-02-09 11:18] LABS: Glucose, Whole Blood 184 mg/dL (60-115)
--- NOTE | 2022-02-09 11:18 | HO.ANESPROP2 ---
HPI - Anesthesia Eval Consult details Narrative: 76 yo female patient for colonoscopy [facility] Active Problems Active Problems: All Active Problems (Updated 02/09/22 @ 10:33 by Deborah Liu, RN) Low blood pressure (Acute) Paroxysmal atrial fibrillation (Acute). Last dose eliquis 02/06/22 Atypical chest pain (Acute) Vulvar lesion (Acute) Abdominal pain (Acute) Hot flashes (Acute) Melena (Acute) Melena (Acute) Loose stools (Acute) Vaginal pain (Acute) Gait instability (Acute) Hypertension (Acute) Intertrigo (Acute) Obesity (BMI 30-39.9) (Acute) Bipolar disorder (Acute) Anemia (Acute) Allergic rhinitis (Acute) Acquired hypothyroidism (Acute) Pure hypercholesterolemia (Acute) Diabetes mellitus (Acute) GERD without esophagitis (Acute) Pain of left lower extremity (Acute) High bilirubin (Acute) Denies ANSHU Past Medical History Medical History (Updated 02/09/22 @ 10:33 by Deborah Liu RN) Acquired hypothyroidism Allergic rhinitis Anemia Bipolar disorder Diabetes mellitus Gait instability GERD without esophagitis High bilirubin History of vitamin D deficiency Hx of diabetes insipidus Hx of strabismus Hypertension Intertrigo Obesity (BMI 30-39.9) PAF (paroxysmal atrial fibrillation) Pain of left lower extremity Pure hypercholesterolemia Vaginal pain Family History Family History Father History of cerebral hemorrhage Mother History of cerebral hemorrhage Sister Breast cancer Family history of problems with anesthesia: No Surgical History Surgical History History of eye surgery History of left breast biopsy Hx of cataract surgery (~07/2017) Hx of colonoscopy Hx of dilation and curettage History of Problems with Anesthesia: No Social History Social History Household Members: Spouse Housing: Apartment Do you presently have visiting nurse or other home services: Yes Alcohol intake: never Patient Tobacco Use Status: Former Tobacco user Quit Date: 8yrs ago Years Smoked: 20 Second Hand Smoke Exposure: Yes Use of substances other than those prescribed or required for medical reasons: No Are you DNR?: No Advance Directives: Yes Advance Directives Information Provided: Yes Advance Directives on File: Yes Advance Directives Date on File: 08/24/20 service: No Current occupational status: retired Cognitive needs: No Hearing needs: No Vision needs: Yes (reading glasses) Meds Allergies Allergy/AdvReac Type Severity Reaction Status Date / Time amoxicillin [Amoxicillin] Allergy Intermediate SWELLING, Verified 02/09/22 10:34 rash Sulfa (Sulfonamide Allergy Intermediate itching & Verified 02/09/22 10:34 Antibiotics) bruising codeine [CODEINE] Allergy Unknown RASH Verified 02/09/22 10:34 dicyclomine Allergy Unknown Unknown Verified 02/09/22 10:34 lidocaine [LIDOCAINE] Allergy Unknown UNKNOWN Verified 02/09/22 10:34 lithium [LITHIUM] AdvReac Severe NEPHROGENIC Verified 02/09/22 10:34 DIABETES INSIPIDUS meclizine [Meclizine] AdvReac Intermediate INCREASES Verified 02/09/22 10:34 DIZZINESS simvastatin [SIMVASTATIN] AdvReac Intermediate MYALGIAS Verified 02/09/22 10:34 metronidazole [METRONIDAZOLE] AdvReac Mild FLU LIKE Verified 02/09/22 10:34 SYMPTOMS acyclovir AdvReac Unknown Unknown Verified 02/09/22 10:34 Active Medications: Current Medications Lactated Ringer's (Lr) 1,000 mls @ 100 mls/hr IVCONT .Q10H FRANCINE Last Admin: 02/09/22 11:08 Dose: 100 mls/hr Home Medications Medication Instructions Recorded Confirmed Last Taken Type lancing device with lancets kit #1 ea 05/11/20 02/09/22 Unknown History (Univa UD Lancing Device kit) perphenazine 4 mg tablet 4 mg PO BID 05/03/21 02/09/22 Unknown History Exam Exam Date and Time: February 09, 2022 1118 Height,Weight and Vital Signs: Height 5 ft 6 in Weight 90.6 kg Vital Signs Temp Pulse Resp BP Pulse Ox O2 Del Method 02/09/22 11:27 97.0 F 65 17 173/60 H 95 Room Air Pertinent Lab Results Pertinent Lab Results: Lab Results 02/09/22 Range/Units 10:57 POC Glucose 184 H (60-115) mg/dL Airway Mallampati Class: II TM Dist: >3cm Neck ROM: Full Denture: Upper and Lower Heart: Irregularly irregular Lungs: CTAB Assessment and Plan Assessment Anesthesia Assessment: Anesthesia Plan Discussed and Chart Reviewed Final Anesthetic Review Family History of Problems with Anesthesia: No History of Problems with Anesthesia: No NPO: Yes ASA Class: III Final Preanesthetic Review: No Changes in Pt Med Stat, Meds/Allgs Chart Reviewed, Consent Obtained/Reviewed and Anes Risks/Benef Reviewed Patient Risk: Intermediate Procedure Risk: Low Assessment/Block/Sedation in SS: Assess/Block/Sedation-SS Anesthetic Plan Anesthetic Plan: MAC: Disposition: Standard PACU
[2022-02-09 11:27] VITALS: BP 173/60; PULSE 65; RESP 17; TEMP 36.1; O2SAT 95
--- NOTE | 2022-02-09 11:36 | MHC.SHP ---
Pre-Procedural Eval Section A Date of Service: 02/09/22 The patient is an INPATIENT: No The History & Physical has been completed within 30 days and I have reviewed it.: No Section B Chief Complaint: screening Relevant Family History (Specify if Yes): Yes Relevant Social History: Tobacco Use ( former smoker) Present Medications: see Short Stay Collaborative assessment Medical History: Significant History (Paroxysmal atrial fibrillation Hypertension Obesity Hypothyroid High cholesterol Diabetes Bipolar disorder Gait instability Elevated bilirubin Allergic rhinitis GERD) History of Previous Operations: Relevant previous surgery/procedure and date(s) (Strabismus correction surgery Left breast biopsy Cataract surgery D&C) Allergies: Allergies Allergy/AdvReac Type Severity Reaction Status Date / Time amoxicillin [Amoxicillin] Allergy Intermediate SWELLING, Verified 02/09/22 10:34 rash Sulfa (Sulfonamide Allergy Intermediate itching & Verified 02/09/22 10:34 Antibiotics) bruising codeine [CODEINE] Allergy Unknown RASH Verified 02/09/22 10:34 dicyclomine Allergy Unknown Unknown Verified 02/09/22 10:34 lidocaine [LIDOCAINE] Allergy Unknown UNKNOWN Verified 02/09/22 10:34 lithium [LITHIUM] AdvReac Severe NEPHROGENIC Verified 02/09/22 10:34 DIABETES INSIPIDUS meclizine [Meclizine] AdvReac Intermediate INCREASES Verified 02/09/22 10:34 DIZZINESS simvastatin [SIMVASTATIN] AdvReac Intermediate MYALGIAS Verified 02/09/22 10:34 metronidazole [METRONIDAZOLE] AdvReac Mild FLU LIKE Verified 02/09/22 10:34 SYMPTOMS acyclovir AdvReac Unknown Unknown Verified 02/09/22 10:34 Review of Systems Sugical H&P ROS: Negative: Constitution, Cardiovascular and Respiratory and Yes, Specify: Gastrointestinal (abdominal pain) Exam Surgical H&P Exam: Normal: Heart, Normal: Lungs, Normal: Extremities and Normal: Abdomen Plan Diagnosis/Plan: Unchanged I have reviewed the history and physical and performed a pertinent physical examination on my patient. No changes have occurred unless specified.
--- NOTE | 2022-02-09 11:46 | P.BOP_ITS ---
Brief Operative Note Date of Service: 02/09/22 Pre-op diagnosis: colon cancer screening, abdominal pain Post-op diagnosis: other ( colon polyp, diverticulosis, hemorrhoids) Procedure: COLONOSCOPY TILL CECUM WITH BIOPSIES AND SNARE POLYPECTOMY Consent: Indications for the procedure and potential complications of bleeding, perforation, reaction to medications and missed diagnosis were discussed with the patient and informed consent was obtained. Instrument: Olympus PCF H 190 L variable stiffness pediatric colonoscope Monitoring: Vital signs and clinical assessment, intermittent blood pressure monitoring, continuous EKG monitoring, Pulse oximetry and Carbon Dioxide monitoring were done throughout the procedure. Colon withdrawl time was 25 minutes. Procedure: The patient was placed in the left lateral decubitis position and pre-procedure medications were administered. After a digital rectal examination of the ano-rectum, the video colonoscope was inserted into the rectum and advanced through the colon to the cecum. The colonoscope was slowly withdrawn in a retrograde panoramic fashion and the colon mucosa was carefully examined including a retroflexed view of the rectum. Findings and interventions are described below. Procedure Difficulty: colon was long and tortuous and there was recurrent loop formation. Patient was placed in the supine position and LLQ pressure was applied to intubate the ascending colon Findings: Terminal Ileum: Distal 5 cm was examined and appeared normal Cecum: Normal Ascending Colon: A 7-8 mm sessile polyp removed with a cold snare. Moderate scattered diverticulosis throughout the colon Transverse Colon: moderate scattered diverticulosis throughout the colon Descending Colon: moderate scattered diverticulosis throughout the colon Sigmoid Colon: Severe diverticulosis with luminal narrowing Rectum: Normal Ano-rectum: Moderate internal hemorrhoids Colon preparation: Good after copious irrigation and fair in some areas of the colon due to undigested vegetable matter which could not be suction Impression and Post Procedure Diagnosis: Colonoscopy Findings: One small polyp removed. random biopsies obtained from the right and left colon to check for microscopic colitis Moderate to severe diverticulosis throughout the colon, left > right Moderate hemorrhoids on retroflexed exam. no clear source found for patient's abdominal pain - patient reports improvement in abdominal pain after she has a good bowel movement. Abdominal pain may be related to constipation versus painful diverticular disease. Pt was advised to take Miralax 1-2 times daily to see if abdominal pain improves Plan: Await pathology results Patient has an appointment on 02/23/22 in the GI Clinic with Eve Cantu NP. Repeat Colonoscopy interval based on path results - in 3 years if polyps are adenomatous and due to fair prep in some areas of the colon (adult colonoscope for future colonoscopies) Above findings were reviewed with the patient and colon polyps and div erticulosis handouts were given in the discharge area Surgeon: Nasim Barahona MD Anesthesia: MAC Was an Lap Welder used for this Procedure?: No Lap Welder: Gem Webster Estimated blood loss (mL): 0 Pathology: other (A. ascending colon polyp B. right colon bxs, R/O microscopic colitis C. left colon bxs, R/O microscopic coliti) Condition: stable
[2022-02-09 12:47] VITALS: BP 121/68; PULSE 62; RESP 17; TEMP 36.1; O2SAT 94
--- NOTE | 2022-02-09 12:47 | P.OP_ITS ---
Operative Note Operative Note Date of Service: 02/09/22 Narrative: Pre-op diagnosis: colon cancer screening, abdominal pain Post-op diagnosis:?other ( colon polyp, diverticulosis, hemorrhoids) Procedure: COLONOSCOPY TILL CECUM WITH BIOPSIES AND SNARE POLYPECTOMY Consent: Indications for the procedure and potential complications of bleeding, perforation, reaction to medications and missed diagnosis were discussed with the patient and informed consent was obtained. Instrument: Olympus PCF H 190 L variable stiffness pediatric colonoscope Monitoring: Vital signs and clinical assessment, intermittent blood pressure monitoring, continuous EKG monitoring, Pulse oximetry and Carbon Dioxide monitoring were done throughout the procedure. Colon withdrawl time was 25 minutes. Procedure: The patient was placed in the left lateral decubitis position and pre-procedure medications were administered. After a digital rectal examination of the ano-rectum, the video colonoscope was inserted into the rectum and advanced through the colon to the cecum. The colonoscope was slowly withdrawn in a retrograde panoramic fashion and the colon mucosa was carefully examined including a retroflexed view of the rectum. Findings and interventions are described below. Procedure Difficulty:? colon was long and tortuous and there was recurrent loop formation.? Patient was placed in the supine position and LLQ pressure was applied to intubate the? ascending colon Findings: Terminal Ileum:? Distal 5 cm was examined and appeared normal Cecum:? Normal Ascending Colon:? A 7-8 mm sessile polyp removed with a cold snare. Moderate scattered diverticulosis throughout the colon Transverse Colon: ? moderate scattered diverticulosis throughout the colon Descending Colon: ? moderate scattered diverticulosis throughout the colon Sigmoid Colon:? Severe diverticulosis with luminal narrowing Rectum:? Normal Ano-rectum:? Moderate internal hemorrhoids Colon preparation:? Good? after copious irrigation and fair in some areas of the colon due to undigested vegetable? matter which could not be suction Impression and Post Procedure Diagnosis: Colonoscopy Findings: One small polyp removed. ?Random biopsies obtained from the right and left colon to check for microscopic colitis ?Moderate to severe diverticulosis throughout the colon, left > right Moderate hemorrhoids on retroflexed exam. ?no clear source found for patient's abdominal pain -? patient reports improvement in abdominal pain after she has a good bowel movement. ?Abdominal pain may be related to constipation versus painful diverticular disease. Pt was advised to take Miralax 1-2 times daily to see if abdominal pain improves Plan: Await pathology results Patient has an appointment on 02/23/22 in the GI Clinic with? Eve Cantu NP. Repeat Colonoscopy interval based on path results - in 3 years if polyps are adenomatous and due to fair prep in some areas of the colon (adult colonoscope for future colonoscopies) Above findings were reviewed with the patient and colon polyps and diverticulosis handouts were given in the discharge area Surgeon: Nasim Barahona MD Anesthesia:?MAC Was an Door To Door Sales Representative used for this Procedure?:?Yes Door To Door Sales Representative:?Gem Webster Estimated blood loss (mL):?0 Pathology:?other (A. ascending colon polyp? B. right colon bxs, R/O microscopic colitis? C. left colon bxs, R/O microscopic coliti) Condition:?stable
[2022-02-09 13:02] VITALS: BP 138/83; PULSE 60; RESP 18; TEMP 36.1; O2SAT 96
== END 2022-02-09 13:33 | disposition home or self-care (01) ==
PROVIDERS: PCP Internal Medicine; Visit Provider Internal Medicine Gastroenterology
PROC: 0DJD8ZZ Inspection of Lower Intestinal Tract, Via Natural or Artificial Opening Endoscopic (ICD-10-PCS; CPT 45378; principal; 2022-02-09 11:40)
DX: Z12.11 Encounter for screening for malignant neoplasm of colon (principal); Z83.71 Family history of colonic polyps; D12.2 Benign neoplasm of ascending colon; K57.30 Diverticulosis of large intestine without perforation or abscess without bleeding; K64.8 Other hemorrhoids; R10.9 Unspecified abdominal pain; K21.9 Gastro-esophageal reflux disease without esophagitis; I48.0 Paroxysmal atrial fibrillation; I10 Essential (primary) hypertension; E78.00 Pure hypercholesterolemia, unspecified; E03.9 Hypothyroidism, unspecified; E80.7 Disorder of bilirubin metabolism, unspecified; E11.9 Type 2 diabetes mellitus without complications; E66.9 Obesity, unspecified; Z68.32 Body mass index [BMI] 32.0-32.9, adult; Z79.01 Long term (current) use of anticoagulants; Z79.899 Other long term (current) drug therapy; Z88.1 Allergy status to other antibiotic agents; Z88.2 Allergy status to sulfonamides; Z88.8 Allergy status to other drugs, medicaments and biological substances; Z87.891 Personal history of nicotine dependence
CPT/HCPCS: 45385; 45380; 82947; 88305

== ENCOUNTER 2022-02-28 08:55 | Outpatient (REF) | payer MEDICARE, SELFPAY ==
[2022-02-28 09:21] LABS: MANUAL DIFF FLAG NO
[2022-02-28 09:42] LABS: Basophils Percent Auto 0.4 % (0-2); Eosinophils Absolute Auto 0.1 X10*3/uL (0.0-0.4); Eosinophils Percent Auto 1.1 % (0-4); Hematocrit 41.1 % (37.0-47.0); Hemoglobin 13.6 g/dl (12.0-16.0); Imm Gran Abs Auto 0.15 X10*3/uL (0.00-0.03); Imm Gran Pct Auto 1.8 % (0.0-0.4); Lymphocytes Absolute Auto 2.5 X10*3/uL (1.2-4.9); Lymphocytes Percent Auto 29.4 % (20-40); Mean Corpuscular HGB Conc 33.1 g/dl (31.0-35.0); Mean Corpuscular Hemoglobin 32.8 pg (27.0-33.0); Mean Platelet Volume 9.1 fL (9.4-12.3); Monocytes Absolute Auto 0.6 X10*3/uL (0.1-1.2); Monocytes Percent Auto 6.5 % (2-11); Neutrophils Absolute Auto 5.2 x10*3/uL (2.0-8.3); Neutrophils Percent Auto 60.8 % (45-73); Platelet Count 239 X10*3/uL (160-400); Red Blood Count 4.15 X10*6/uL (4.20-5.50); Red Cell Distribution Width 12.7 % (11.0-16.0); White Blood Count 8.5 X10*3/uL (4.8-10.8)
[2022-02-28 10:01] LABS: Alanine Aminotransferase 18 U/L (0-31); Albumin Level 4.2 g/dL (3.5-5.0); Alkaline Phosphatase 72 U/L (39-117); Anion Gap 18 (12-20); Aspartate Amino Transferase 12 U/L (5-31); Bilirubin Total 0.4 mg/dL (0.0-1.0); Blood Urea Nitrogen 14 mg/dL (9-16); Calcium 9.6 mg/dL (8.4-10.2); Carbon Dioxide 27 mmol/L (22-29); Chloride 100 mmol/L (96-108); Cholesterol 149 mg/dL; Estimated Glomerular Filt Rate 49; Glucose Fasting 309 mg/dL (60-99); HDL Cholesterol 42 mg/dL; LDL Cholesterol Calculated 66 mg/dl; Potassium 4.7 mmol/L (3.3-5.1); Sodium 140 mmol/L (135-145); Total Protein 7.1 g/dL (6.5-8.0); Triglycerides 208 mg/dL
[2022-02-28 10:09] LABS: Estimated Average Glucose 263 mg/dL; Hemoglobin A1c % 10.8 %
[2022-02-28 10:22] LABS: Free T4 (Free Thyroxine) 1.53 ng/dL (0.71-1.85); Thyroid Stimulating Hormone 2.63 uIU/mL (0.32-4.0); Vitamin D 25-OH Total 51.7 ng/mL (>30)
[2022-03-02 05:27] LABS: Thyroid Peroxidase Antibodies 2 IU/mL (<9)
== END 2022-02-28 08:56 | disposition home or self-care (01) ==
LOC: HO.LAB 08:55
PROVIDERS: PCP Internal Medicine; Visit Provider Internal Medicine
DX: E11.9 Type 2 diabetes mellitus without complications (principal); R79.89 Other specified abnormal findings of blood chemistry; E03.9 Hypothyroidism, unspecified; I10 Essential (primary) hypertension; E55.9 Vitamin D deficiency, unspecified; E78.00 Pure hypercholesterolemia, unspecified
CPT/HCPCS: 36415; 80053; 80061; 82306; 83036; 84439; 84443; 85025; 86376

== ENCOUNTER → 2022-03-28 09:14 | Outpatient (REF) | payer MEDICARE, SELFPAY ==
--- NOTE | 2022-03-28 09:16 | CA_ITS ---
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 The visually estimated ejection fraction is between 55-60%. - There is mild calcification of the aortic valve. No significant aortic stenosis. Findings Left Ventricle Normal left ventricular cavity size. There is mildly increased left ventricular wall thickness. The left ventricular systolic function is normal. The visually estimated ejection fraction is between 55-60%. There is no evidence of regional wall motion abnormalities. Diastolic function is normal for age. Right Ventricle Normal right ventricular cavity size and systolic function. Atria Both atria are normal in size. Aortic Valve The aortic valve was not well visualized. There is mild calcification of the aortic valve. There is no aortic valve regurgitation. No significant aortic stenosis. Mitral Valve The mitral valve appears normal. There is no mitral valve regurgitation. There is no mitral valve stenosis. Pulmonic Valve The pulmonic valve is likely normal. Tricuspid Valve Normal tricuspid valve structure. There is trace tricuspid valve regurgitation. There is no evidence of pulmonary hypertension. Great Vessels The aortic annulus, sinuses of valsalva, and asc aorta are normal in size. Venous The inferior vena cava is normal in size and collapses greater than 50% with inspiration. Pericardium/Pleural There is no evidence of pericardial effusion. Prior Study Comparison No significant change compared to prior study dated: 08/29/2020. Recommendations, Care & Conclusions No obvious valvular pathology seen on this study. Measurements 2D Linear Measurements IVSd: 1.22 0.6-0.9/0.6-1.0 cm LVIDd: 3.59 3.9-5.3/4.2-5.9 cm LVIDd Index: 1.78 2.4-3.2/2.2-3.1 cm/m2 LVIDs: 2.27 2.0-3.6 cm LVPWd: 1.21 0.7-1.1 cm LA Diam: 2.50 2.7-3.8/3.0-4.0 cm LAIDs Index: 1.24 1.5-2.3 cm/m2 LV Mass: 178.77 67-162/88-224 g LV Mass Index: 88.50 43-95/49-115 g/m2 LVOT Diam: 2.10 3.0+(-)1.3 cm 2D Systolic Function EF 4C: 50.60 >55% EF 2C: 63.60 >55% EF BiP: 57.20 >55% Mitral Valve MV Pk E: 0.48 MV PK A: 0.93 MV Decel Time: 256.00 E/A: 0.50 E'Lateral: 4.03 E'Medial: 4.13 E/E' Med: 11.70 E/E' Lat: 12.00 PHT: 75.00 MVA PHT: 2.93 Decel [place]: 1.89 Aortic Valve AoV Pk Matthew: 1.76 AoV Mn Matthew: 1.11 AoV VTI: 0.39 AoV Pk Grad: 12.00 Aov Mn Grad: 6.00 DANIEL Cont.VTI: 2.08 LVOT LVOT Pk Matthew: 0.97 LVOT Mn Matthew: 0.61 LVOT VTI: 0.23 LVOT Pk Grad: 4.00 LVOT Mn Grad: 2.00 LVOT Diam: 2.10 LVOT Area: 3.46 Diastolic Function MV Pk E: 0.48 MV Pk A: 0.93 E/A: 0.50 E'Medial: 4.13 E/E' Med: 11.70 E' Laterial: 4.03 E/E' Lat: 12.00 Right Ventricle TAPSE (mm): 22.40 TVS' Matthew: 9.14 Tricuspid Valve TR Pk Matthew: 1.68 TR Pk Grad: 11.00 RA Press: 3.00 RVSP: 14.00 Great Vessels Aorta Sinus of Valsalva: 3.10 2.0-3.5 cm Ao Asc: 3.00 2.1-3.4 cm Pulmonary Valve PV Pk Matthew: 1.26 Peak PV Grad: 6.00 Updated in Other Vendor System with Status of Final Benny Metz MD electronically signed on 03/29/2022 4:07:10 PM with status of Final
== END ==
LOC: HO.CARD 09:14
PROVIDERS: PCP Internal Medicine; Visit Provider Internal Medicine Cardiovascular Disease
DX: I48.0 Paroxysmal atrial fibrillation (principal)
CPT/HCPCS: 93306

== ENCOUNTER → 2022-03-29 10:05 | Outpatient (BNVA) | payer MEDICARE, SELFPAY | PROVIDERS: PCP Internal Medicine; Visit Provider Internal Medicine Endocrinology, Diabetes & Metabolism | DX: E11.9 Type 2 diabetes mellitus without complications (principal) | CPT/HCPCS: 82947; 99202 ==

== ENCOUNTER → 2022-04-04 08:00 | Outpatient (BNVA) | payer MEDICARE, SELFPAY | PROVIDERS: PCP Internal Medicine; Visit Provider Registered Nurse Diabetes Educator | DX: E11.9 Type 2 diabetes mellitus without complications (principal) | CPT/HCPCS: 99211 ==

== ENCOUNTER → 2022-04-09 12:04 | Outpatient (BNVA) | payer MEDICARE, SELFPAY | PROVIDERS: PCP Internal Medicine; Visit Provider Dietitian, Registered | DX: E11.9 Type 2 diabetes mellitus without complications (principal) | CPT/HCPCS: 97802 ==

== ENCOUNTER → 2022-04-13 11:03 | Outpatient (BNVA) | payer MEDICARE, SELFPAY | PROVIDERS: PCP Internal Medicine; Visit Provider Registered Nurse Diabetes Educator | DX: E11.9 Type 2 diabetes mellitus without complications (principal); Z79.4 Long term (current) use of insulin | CPT/HCPCS: 99211 ==

== ENCOUNTER → 2022-04-20 12:20 | Outpatient (BNVA) | payer MEDICARE, SELFPAY | PROVIDERS: PCP Internal Medicine; Visit Provider Nurse Practitioner | DX: D12.6 Benign neoplasm of colon, unspecified (principal); K21.9 Gastro-esophageal reflux disease without esophagitis; R19.5 Other fecal abnormalities; Z83.71 Family history of colonic polyps | CPT/HCPCS: 99212 ==

== ENCOUNTER → 2022-05-07 13:00 | Outpatient (BNVA) | payer MEDICARE, SELFPAY | PROVIDERS: PCP Internal Medicine; Referring Provider Internal Medicine; Visit Provider Internal Medicine Cardiovascular Disease | DX: I48.0 Paroxysmal atrial fibrillation (principal); I10 Essential (primary) hypertension | CPT/HCPCS: 93005; 99212 ==

== ENCOUNTER 2022-05-28 07:56 | Outpatient (REF) | payer MEDICARE, SELFPAY ==
[2022-05-28 08:09] LABS: MANUAL DIFF FLAG NO
[2022-05-28 08:38] LABS: Basophils Percent Auto 0.3 % (0-2); Eosinophils Absolute Auto 0.1 X10*3/uL (0.0-0.4); Eosinophils Percent Auto 1.2 % (0-4); Hematocrit 41.2 % (37.0-47.0); Hemoglobin 13.1 g/dl (12.0-16.0); Imm Gran Abs Auto 0.16 X10*3/uL (0.00-0.03); Imm Gran Pct Auto 1.7 % (0.0-0.4); Lymphocytes Absolute Auto 2.4 X10*3/uL (1.2-4.9); Lymphocytes Percent Auto 26.3 % (20-40); Mean Corpuscular HGB Conc 31.8 g/dl (31.0-35.0); Mean Corpuscular Hemoglobin 31.6 pg (27.0-33.0); Mean Corpuscular Volume 99.5 fL (80.0-98.0); Mean Platelet Volume 8.9 fL (9.4-12.3); Monocytes Absolute Auto 0.6 X10*3/uL (0.1-1.2); Neutrophils Absolute Auto 5.9 x10*3/uL (2.0-8.3); Neutrophils Percent Auto 64.5 % (45-73); Platelet Count 233 X10*3/uL (160-400); Red Blood Count 4.14 X10*6/uL (4.20-5.50); White Blood Count 9.2 X10*3/uL (4.8-10.8)
[2022-05-28 08:43] LABS: Estimated Average Glucose 186 mg/dL; Hemoglobin A1c % 8.1 %
[2022-05-28 09:22] LABS: Alanine Aminotransferase 12 U/L (0-31); Albumin Level 4.1 g/dL (3.5-5.0); Alkaline Phosphatase 66 U/L (39-117); Anion Gap 12 (12-20); Aspartate Amino Transferase 12 U/L (5-31); Bilirubin Total 0.3 mg/dL (0.0-1.0); Blood Urea Nitrogen 13 mg/dL (9-16); Carbon Dioxide 28 mmol/L (22-29); Chloride 105 mmol/L (96-108); Cholesterol 119 mg/dL; Estimated Glomerular Filt Rate > 60; Glucose Fasting 149 mg/dL (60-99); HDL Cholesterol 41 mg/dL; LDL Cholesterol Calculated 60 mg/dl; Potassium 4.1 mmol/L (3.3-5.1); Sodium 141 mmol/L (135-145); TSH reflex Free T4 4.73 uIU/mL (0.32-4.0); Total Protein 6.6 g/dL (6.5-8.0); Triglycerides 93 mg/dL; Vitamin D 25-OH Total 56.4 ng/mL (>30)
[2022-05-28 10:02] LABS: Free T4 (Free Thyroxine) 1.16 ng/dL (0.71-1.85)
== END 2022-05-28 07:57 | disposition home or self-care (01) ==
LOC: HO.LAB 07:56
PROVIDERS: PCP Internal Medicine; Visit Provider Internal Medicine
DX: E11.9 Type 2 diabetes mellitus without complications (principal); I10 Essential (primary) hypertension; E55.9 Vitamin D deficiency, unspecified; E78.00 Pure hypercholesterolemia, unspecified
CPT/HCPCS: 36415; 80053; 80061; 82306; 83036; 84439; 84443; 85025

== ENCOUNTER 2022-06-27 10:17 | Emergency (ER) | payer MEDICARE, SELFPAY ==
--- NOTE | ~2022-06-27 | XR_ITS ---
EXAMINATION: XR CHEST CLINICAL INFORMATION: Dizziness and shakiness. COMPARISON: October 14, 2021 and November 07, 2020 TECHNIQUE: AP portable view of the chest was obtained. FINDINGS: There is no evidence of acute parenchymal disease, pneumothorax, or pleural effusion. Heart normal size. No evidence of pulmonary edema. There is some scarring seen at the left lung base. A few small calcified granulomas are present. XR/XR chest 1V IMPRESSION: No acute disease.
[2022-06-27 10:26] VITALS: BP 160/67; PULSE 74; RESP 21; TEMP 37.1; O2SAT 97; BMI 31.9
--- NOTE | 2022-06-27 10:41 | ECG_ITS ---
Test Reason : DISSINESS Blood Pressure : / mmHG Vent. Rate : 071 BPM Atrial Rate : 071 BPM P-R Int : 186 ms QRS Dur : 078 ms QT Int : 370 ms P-R-T Axes : 028 -07 -22 degrees QTc Int : 402 ms Normal sinus rhythm Nonspecific ST and T wave abnormality Abnormal ECG When compared with ECG of 14-OCT-2021 09:08, No significant change was found Referred By: Deepti Pearson Electronically Signed By:Hadley Aguilera
[2022-06-27 10:49] VITALS: BP 149/74; PULSE 70; RESP 22; TEMP 36.8; O2SAT 94
[2022-06-27 10:54] VITALS: BP 139/68; BP 139/74; PULSE 71; PULSE 74
[2022-06-27 10:56] VITALS: BP 131/70; PULSE 78
[2022-06-27 10:57] LABS: MANUAL DIFF FLAG NO
[2022-06-27 10:58] LABS: Basophils Percent Auto 0.2 % (0-2); Eosinophils Absolute Auto 0.1 X10*3/uL (0.0-0.4); Eosinophils Percent Auto 1.2 % (0-4); Hematocrit 39.7 % (37.0-47.0); Hemoglobin 12.7 g/dl (12.0-16.0); Imm Gran Abs Auto 0.12 X10*3/uL (0.00-0.03); Imm Gran Pct Auto 1.5 % (0.0-0.4); Lymphocytes Absolute Auto 1.8 X10*3/uL (1.2-4.9); Lymphocytes Percent Auto 21.7 % (20-40); Mean Corpuscular Hemoglobin 31.8 pg (27.0-33.0); Mean Corpuscular Volume 99.5 fL (80.0-98.0); Mean Platelet Volume 8.6 fL (9.4-12.3); Monocytes Absolute Auto 0.5 X10*3/uL (0.1-1.2); Monocytes Percent Auto 5.4 % (2-11); Neutrophils Absolute Auto 5.8 x10*3/uL (2.0-8.3); Platelet Count 236 X10*3/uL (160-400); Red Blood Count 3.99 X10*6/uL (4.20-5.50); White Blood Count 8.3 X10*3/uL (4.8-10.8)
[2022-06-27 11:12] LABS: Alanine Aminotransferase 11 U/L (0-31); Albumin Level 3.9 g/dL (3.5-5.0); Alkaline Phosphatase 67 U/L (39-117); Anion Gap 14 (12-20); Aspartate Amino Transferase 11 U/L (5-31); Bilirubin Direct < 0.2 mg/dL (0.0-0.5); Bilirubin Total 0.4 mg/dL (0.0-1.0); Blood Urea Nitrogen 15 mg/dL (9-16); Calcium 9.3 mg/dL (8.4-10.2); Carbon Dioxide 27 mmol/L (22-29); Chloride 103 mmol/L (96-108); Creatinine Clr Calc Pharmacy 54.1; Estimated Glomerular Filt Rate 52; Glucose Random 233 mg/dL (60-115); Potassium 4.5 mmol/L (3.3-5.1); Sodium 139 mmol/L (135-145); Total Protein 6.4 g/dL (6.5-8.0)
[2022-06-27 11:17] LABS: Valproate 38.1 mcg/mL (50.0-100.0)
[2022-06-27 11:30] LABS: Appearance Urine Clear; Color Urine Yellow; Glucose Urine UA Negative (Negative); Leukocyte Esterase Urine Negative (Negative); Nitrite Urine Negative (Negative); Specific Gravity - Urine <= 1.005 (1.005-1.025); UMIC TRIGGER UACC YES; Urine Blood Trace (Negative); Urine Ketones Negative (Negative); Urine Protein Negative (Neg-Trace)
[2022-06-27 11:35] LABS: Bacteria Urine None Seen (None Seen); Hyaline Casts Urine 0-2 /LPF (0-2); RBC Urine 0-2 /HPF (0-2); Squamous Epithelial Cell Urine 0-2 /HPF (0-2); WBC Urine 0-5 /HPF (0-5)
[2022-06-27 11:44] LABS: Troponin-I High Sensitivity < 3.5 ng/L (<3.5-17.0)
[2022-06-27 11:48] LABS: Influenza A PCR NEGATIVE (Negative); Influenza B PCR NEGATIVE (Negative); Resp Syncy Virus RNA Qual PCR NEGATIVE (Negative); SARS COV2 PCR INHOUSE NEGATIVE (Negative)
--- NOTE | 2022-06-27 13:39 | ED.GENADULT ---
HPI - General Adult General Chief complaint: General Medical Stated complaint: sent by doctor. yareli MIRANDA balance Time Seen by Provider: 06/27/22 10:37 Source: patient and family Mode of arrival: ambulatory (With walker) History of Present Illness HPI narrative: 76-year-old female who presents with complaints of dizziness, weakness and shakiness last night but states that she has continued to feel progressively weak but denies any constitutional symptoms such as fever, chills, shortness of breath, new cough/sore throat and also denies any chest pain or palpitations. Patient denies any GI symptoms but does endorse that she has had urinary frequency. She denies any recent change in her medications. Related Data Home Medications Medication Instructions Recorded Confirmed lancing device with lancets kit #1 ea 05/11/20 05/07/22 (Campaign Monitor Lancing Device kit) buspirone 5 mg tablet 5 mg PO BID anxiety 03/01/22 05/07/22 divalproex 500 mg tablet,extended See Rx Instructions .Route .COMPLEX 03/01/22 05/07/22 release 24 hr lorazepam 1 mg tablet 1 mg PO BEDTIME PRN insomnia 03/01/22 05/07/22 perphenazine 4 mg tablet See Rx Instructions .Route .COMPLEX 03/01/22 05/07/22 risperidone 1 mg tablet 1 mg PO BID 03/01/22 05/07/22 alcohol swabs (Alcohol Prep Pads) 0 pad topical DIRECTED 03/29/22 05/07/22 pen needle, diabetic 32 gauge x #50 ea 04/20/22 05/07/22 5/32 (BD Flory 2nd Gen Pen Needle) Previous Rx's Medication Instructions Recorded lancets 33 gauge #100 ea 05/11/20 lancets 30 gauge ([email or web address] See Rx Instructions .Route TID for 10/19/20 Plus Lancet) diabetes mellitus #300 caps atorvastatin 40 mg tablet 40 mg PO DAILY #90 tabs 06/30/21 ferrous fumarate 324 mg (106 mg 324 mg PO DAILY #100 tabs 11/16/21 iron) tablet (Ferrocite) blood sugar diagnostic ([email or web address] 1 strip miscellaneous TID for 01/05/22 Verio test strips) diabetes mellitus #300 strips oxybutynin chloride 5 mg tablet 5 mg PO BID #180 tabs 01/22/22 pantoprazole 40 mg tablet,delayed 40 mg PO DAILY #90 tabs 02/07/22 release ascorbic acid (vitamin C) 500 mg 500 mg PO DAILY #90 tabs 02/08/22 tablet (Vitamin C) levothyroxine 100 mcg tablet 100 mcg PO DAILY #90 tabs 02/08/22 metoprolol succinate 25 mg 25 mg PO DAILY #90 tabs 02/09/22 tablet,extended release 24 hr gabapentin 100 mg capsule 100 mg PO TID 30 days #90 caps 03/14/22 Tradjenta 5 mg tablet (linagliptin) 5 mg PO QAM 30 days #30 tabs 03/16/22 aluminum-mag hydroxide-simethicone 10 ml PO TID PRN indigestion 10 03/21/22 400 mg-400 mg-40 mg/5 mL oral susp days #100 mL (Maalox Maximum Strength) pen needle, diabetic 33 gauge x #100 ea 03/29/22 (Easy Comfort Pen [place]) cholecalciferol (vitamin D3) 25 25 mcg PO DAILY #90 tabs 04/08/22 mcg (1,000 unit) tablet (Vitamin D3) metformin 500 mg tablet,extended 500 mg PO BID #180 tabs 04/08/22 release 24 hr insulin glargine 100 unit/mL (3 24 unit (0.24 mL) subcut .evening 05/15/22 mL) subcutaneous pen (Lantus #15 mL Solostar U-100 Insulin) apixaban 5 mg tablet (Eliquis) 5 mg PO BID #60 tabs 06/04/22 nystatin 100,000 unit/gram topical 1 appl topical BID #15 grams 06/13/22 powder Allergies Allergy/AdvReac Type Severity Reaction Status Date / Time amoxicillin [Amoxicillin] Allergy Intermediate SWELLING, Verified 04/20/22 12:46 rash Sulfa (Sulfonamide Allergy Intermediate itching & Verified 04/20/22 12:46 Antibiotics) bruising codeine [CODEINE] Allergy Unknown RASH Verified 04/20/22 12:46 dicyclomine Allergy Unknown Unknown Verified 04/20/22 12:46 lidocaine [LIDOCAINE] Allergy Unknown UNKNOWN Verified 04/20/22 12:46 lithium [LITHIUM] AdvReac Severe NEPHROGENIC Verified 04/20/22 12:46 DIABETES INSIPIDUS meclizine [Meclizine] AdvReac Intermediate INCREASES Verified 04/20/22 12:46 DIZZINESS simvastatin [SIMVASTATIN] AdvReac Intermediate MYALGIAS Verified 04/20/22 12:46 metronidazole [METRONIDAZOLE] AdvReac Mild FLU LIKE Verified 04/20/22 12:46 SYMPTOMS acyclovir AdvReac Unknown Unknown Verified 04/20/22 12:46 Review of Systems Review of Systems: Pertinent positives and negatives as stated in HPI [facility] Past Medical History Source: nursing notes reviewed Medical History Acquired hypothyroidism Allergic rhinitis Anemia Bipolar disorder Diabetes mellitus Gait instability GERD without esophagitis High bilirubin History of vitamin D deficiency Hx of diabetes insipidus Hx of strabismus Hypertension Intertrigo Obesity (BMI 30-39.9) PAF (paroxysmal atrial fibrillation) Pain of left lower extremity Pure hypercholesterolemia Vaginal pain Surgical History History of eye surgery History of left breast biopsy Hx of cataract surgery (~07/2017) Hx of colonoscopy Hx of dilation and curettage Family History Family History Father History of cerebral hemorrhage Mother History of cerebral hemorrhage Sister Breast cancer Social History Social History Household Members: Spouse Housing: Apartment Do you presently have visiting nurse or other home services: Yes Alcohol intake: never Patient Tobacco Use Status: Former Tobacco user Quit Date: 8yrs ago Years Smoked: 20 Second Hand Smoke Exposure: Yes Advance Directives: Yes Advance Directives on File: Yes Advance Directives Date on File: 08/24/20 service: No Current occupational status: retired Cognitive needs: Yes (wheelchair) Hearing needs: No Vision needs: Yes (reading glasses) Physical Exam ED Vital Signs: Vital Signs - 24 hr 06/27/22 10:26 06/27/22 10:49 06/27/22 10:54 Temperature 98.7 F 98.3 F Pulse Rate 74 70 71 Respiratory Rate 21 H 22 H Blood Pressure 160/67 H 149/74 H 139/68 Pulse Oximetry 97 94 Oxygen Delivery Method Room Air Room Air 06/27/22 10:54 06/27/22 10:56 06/27/22 13:55 Temperature Pulse Rate 74 78 60 Respiratory Rate 16 Blood Pressure 139/74 131/70 130/80 Pulse Oximetry 95 Oxygen Delivery Method Room Air BMI result Body Mass Index 31.9 VITAL SIGNS: Reviewed. GENERAL: Chronically ill, frail, in no acute distress. HEAD: Normocephalic/atraumatic EYES: PERRLA, EOMI EARS: Ext canals without abnormality, TMs non-bulging and non-erythematous NOSE: Nares patent bilateral OROPHARYNX: no oral lesions noted, posterior pharynx clear NECK: Supple, no adenopathy LUNGS: Normal breath sounds. No adventitious sounds or accessory muscle use. SpO2<97> CARDIOVASCULAR: Regular rate and rhythm without noted murmurs, no JVD or lower extremity edema. ABDOMEN: Soft, non-tender, non-distended with bowel sounds. MUSCULOSKELETAL: No tenderness, deformities, or effusions noted on gross inspection. EXTREMITIES: No cyanosis, clubbing or edema. SKIN: Inspection of the skin reveals no rashes NEUROLOGIC: Alert and oriented x 4. Strength and sensation to light touch were grossly intact x 4, cranial nerves 2-12 are grossly intact. Medical Decision Making Medical Decision Making MDM Narrative: Is a 76-year-old female who comes in with weakness and reporting dizziness since yesterday that is primarily on changing position but also reports some weakness when walking with a walker. I reviewed the entire workup and my interpretation is that this is most likely a combination medication adherence and deconditioning. There is no evidence to suggest infectious or anemia, electrolytes and renal function are chronically stable, the troponin and EKG do not suggest a cardiac etiology and patient's blood pressure with us appears to be within reason, chest x-ray does not show any acute findings such as infiltrate in she has remained hemodynamically stable here in the emergency room. All viral testing is negative and orthostatics are negative. All results discussed with her at bedside and will perform an ambulation test with her walker. 1426: Patient was able to ambulate with her walker, she states that she feels steady, and her oxygenation remained great at 92-94% throughout the ambulation test. She is otherwise stable for discharge to home Differential Diagnosis Please see the discussion above Lab Data Please see the discussion above 06/27/22 10:47 06/27/22 10:47 Labs: Lab Results 06/27/22 06/27/22 06/27/22 Range/Units 10:47 10:47 10:47 WBC 8.3 (4.8-10.8) X10*3/uL RBC 3.99 L (4.20-5.50) X10*6/uL Hgb 12.7 (12.0-16.0) g/dl Hct 39.7 (37.0-47.0) % MCV 99.5 H (80.0-98.0) fL MCH 31.8 (27.0-33.0) pg MCHC 32.0 (31.0-35.0) g/dl RDW 13.0 (11.0-16.0) % Plt Count 236 (160-400) X10*3/uL MPV 8.6 L (9.4-12.3) fL Immature Gran % (Auto) 1.5 H (0.0-0.4) % Neut % (Auto) 70.0 (45-73) % Lymph % (Auto) 21.7 (20-40) % Tyrrell % (Auto) 5.4 (2-11) % Eos % (Auto) 1.2 (0-4) % Baso % (Auto) 0.2 (0-2) % Lymph # (Auto) 1.8 (1.2-4.9) X10*3/uL Tyrrell # (Auto) 0.5 (0.1-1.2) X10*3/uL Eos # (Auto) 0.1 (0.0-0.4) X10*3/uL Baso # (Auto) 0.0 (0.0-0.2) X10*3/uL Abs Immat Gran (auto) 0.12 H (0.00-0.03) X10*3/uL Absolute Neuts (auto) 5.8 (2.0-8.3) x10*3/uL Absolute Nucleated RBC 0.000 (0.0-0.012) X10*3/uL Nucleated RBC % (auto) 0.0 (0.0-0.2) /100WBC Sodium 139 (135-145) mmol/L Potassium 4.5 (3.3-5.1) mmol/L Chloride 103 (96-108) mmol/L Carbon Dioxide 27 (22-29) mmol/L Anion Gap 14 (12-20) BUN 15 (9-16) mg/dL Creatinine 1.03 (0.5-1.4) mg/dL Estim Creat Clear Calc 54.1 Estimated GFR 52 Random Glucose 233 H (60-115) mg/dL Calcium 9.3 (8.4-10.2) mg/dL Total Bilirubin 0.4 (0.0-1.0) mg/dL Direct Bilirubin < 0.2 (0.0-0.5) mg/dL AST 11 (5-31) U/L ALT 11 (0-31) U/L Alkaline Phosphatase 67 (39-117) U/L Troponin I High Sens < 3.5 (<3.5-17.0) ng/L Total Protein 6.4 L (6.5-8.0) g/dL Albumin 3.9 (3.5-5.0) g/dL Urine Color Urine Appearance Urine pH (5.0-9.0) Ur Specific [place] (1.005-1.025) Urine Protein (Neg-Trace) mg/dL Urine Glucose (UA) (Negative) mg/dL Urine Ketones (Negative) mg/dL Urine Blood (Negative) Urine Nitrite (Negative) Ur Leukocyte Esterase (Negative) Urine RBC (0-2) /HPF Urine WBC (0-5) /HPF Ur Squamous Epith Cells (0-2) /HPF Urine Bacteria (None Seen) Hyaline Casts (0-2) /LPF Valproic Acid (50.0-100.0) mcg/mL Influenza Type A (PCR) (Negative) Influenza Type B (PCR) (Negative) RSV RNA Qual (PCR) (Negative) SARS-CoV-2 RNA (RT-PCR) (Negative) 06/27/22 06/27/22 06/27/22 Range/Units 10:47 10:51 11:13 WBC (4.8-10.8) X10*3/uL RBC (4.20-5.50) X10*6/uL Hgb (12.0-16.0) g/dl Hct (37.0-47.0) % MCV (80.0-98.0) fL MCH (27.0-33.0) pg MCHC (31.0-35.0) g/dl RDW (11.0-16.0) % Plt Count (160-400) X10*3/uL MPV (9.4-12.3) fL Immature Gran % (Auto) (0.0-0.4) % Neut % (Auto) (45-73) % Lymph % (Auto) (20-40) % Tyrrell % (Auto) (2-11) % Eos % (Auto) (0-4) % Baso % (Auto) (0-2) % Lymph # (Auto) (1.2-4.9) X10*3/uL [place]rell # (Auto) (0.1-1.2) X10*3/uL Eos # (Auto) (0.0-0.4) X10*3/uL Baso # (Auto) (0.0-0.2) X10*3/uL Abs Immat Gran (auto) (0.00-0.03) X10*3/uL Absolute Neuts (auto) (2.0-8.3) x10*3/uL Absolute Nucleated RBC (0.0-0.012) X10*3/uL Nucleated RBC % (auto) (0.0-0.2) /100WBC Sodium (135-145) mmol/L Potassium (3.3-5.1) mmol/L Chloride (96-108) mmol/L Carbon Dioxide (22-29) mmol/L Anion Gap (12-20) BUN (9-16) mg/dL Creatinine (0.5-1.4) mg/dL Estim Creat Clear Calc Estimated GFR Random Glucose (60-115) mg/dL Calcium (8.4-10.2) mg/dL Total Bilirubin (0.0-1.0) mg/dL Direct Bilirubin (0.0-0.5) mg/dL AST (5-31) U/L ALT (0-31) U/L Alkaline Phosphatase (39-117) U/L Troponin I High Sens (<3.5-17.0) ng/L Total Protein (6.5-8.0) g/dL Albumin (3.5-5.0) g/dL Urine Color Yellow Urine Appearance Clear Urine pH 6.0 (5.0-9.0) Ur Specific [place] <= 1.005 (1.005-1.025) Urine Protein Negative (Neg-Trace) mg/dL Urine Glucose (UA) Negative (Negative) mg/dL Urine Ketones Negative (Negative) mg/dL Urine Blood Trace (Negative) Urine Nitrite Negative (Negative) Ur Leukocyte Esterase Negative (Negative) Urine RBC 0-2 (0-2) /HPF Urine WBC 0-5 (0-5) /HPF Ur Squamous Epith Cells 0-2 (0-2) /HPF Urine Bacteria None Seen (None Seen) Hyaline Casts 0-2 (0-2) /LPF Valproic Acid 38.1 L (50.0-100.0) mcg/mL Influenza Type A (PCR) NEGATIVE (Negative) Influenza Type B (PCR) NEGATIVE (Negative) RSV RNA Qual (PCR) NEGATIVE (Negative) SARS-CoV-2 RNA (RT-PCR) NEGATIVE (Negative) Independent Interpretation I performed an independent interpretation of an: EKG Interpretation: Normal sinus rhythm, HR-71, no STEMI, AR/QRS/QTC is within normal limits. Radiology Impression Radiologist Impression: My interpretation is in agreement with radiology's impression of the imaging study. External Record Review External record reviewed: Outpatient record and Prior outpatient labs Chronic Conditions Patient?s care impacted by: Hypertension Discharge Plan Discharge Clinical Impression: Weakness, Patient understands importance of medication adherence Patient Disposition: Home, Self-Care Instructions: Weakness (ED), Medication Safety for Older Adults (ED) Additional Instructions: Make sure that you are taking all of your medication as prescribed. Your valproic acid was noted to be low. Resume all home medications as prescribed. Recommend that you follow-up with your primary care provider by calling the office today and setting up an appointment for re-evaluation and discuss the possibility of physical therapy. Do not hesitate to return to the emergency room for any worsening of your symptoms. Prescriptions: No Action (DME) lancets 33 gauge misc See Rx Instructions .ROUTE .MEDSUPPLY Qty: 100 0RF Rx Instructions: As directed (DME) lancing device with lancets [OneTouch Delica Lanc Device] Kit See Rx Instructions .ROUTE .MEDSUPPLY Qty: 1 Rx Instructions: As directed lancets [OneTouch Delica Plus Lancet] 30 gauge misc See Rx Instructions .ROUTE TID Qty: 300 3RF Rx Instructions: 3 times a day; atorvastatin 40 mg tablet 40 mg PO DAILY Qty: 90 3RF ferrous fumarate [Ferrocite] 324 mg (106 mg iron) tablet 324 mg PO DAILY Qty: 100 2RF OneTouch Verio test strips Strip 1 strip miscellaneous TID Qty: 300 3RF oxybutynin chloride 5 mg tablet 5 mg PO BID Qty: 180 1RF pantoprazole 40 mg tablet,delayed release (DR/EC) 40 mg PO DAILY Qty: 90 2RF levothyroxine 100 mcg tablet 100 mcg PO DAILY Qty: 90 1RF ascorbic acid (vitamin C) [Vitamin C] 500 mg tablet 500 mg PO DAILY Qty: 90 3RF metoprolol succinate 25 mg tablet extended release 24 hr 25 mg PO DAILY Qty: 90 1RF gabapentin 100 mg capsule 100 mg PO TID 30 Days Qty: 90 3RF Tradjenta 5 mg tablet 5 mg PO QAM 30 Days Qty: 30 3RF alum-mag hydroxide-simeth [Maalox Maximum Strength] 400-400-40 mg/5 mL suspension 10 ml PO TID PRN (Reason: indigestion) 10 Days Qty: 100 0RF metformin 500 mg tablet extended release 24 hr 500 mg PO BID Qty: 180 0RF cholecalciferol (vitamin D3) [Vitamin D3] 25 mcg (1,000 unit) tablet 25 mcg PO DAILY Qty: 90 5RF insulin glargine [Lantus Solostar U-100 Insulin] 100 unit/mL (3 mL) insulin pen 24 unit subcut .evening Qty: 15 4RF Eliquis 5 mg tablet 5 mg PO BID Qty: 60 2RF nystatin 100,000 unit/gram powder 1 appl topical BID Qty: 15 1RF divalproex 500 mg tablet extended release 24 hr See Rx Instructions .ROUTE .COMPLEX Label Comments: mood stabilizer Rx Instructions: 500 mg Q AM and 1000 mg Q HS -- SHOULD BE PRESCRIBED AND REFILLED BY PSYCHIATRY perphenazine 4 mg tablet See Rx Instructions .ROUTE .COMPLEX Label Comments: to help clear thoughts Rx Instructions: 4 mg QAM and 8 mg QHS -- SHOULD BE PRESCRIBED AND REFILLED BY PSYCHIATRY risperidone 1 mg tablet 1 mg PO BID Label Comments: to help clear thoughts Rx Instructions: SHOULD BE PRESCRIBED AND REFILLED BY PSYCHIATRY buspirone 5 mg tablet 5 mg PO BID Label Comments: for anxiety Rx Instructions: SHOULD BE PRESCRIBED AND REFILLED BY PSYCHIATRY lorazepam 1 mg tablet 1 mg PO BEDTIME PRN (Reason: insomnia) Label Comments: for insomnia Rx Instructions: SHOULD BE PRESCRIBED AND REFILLED BY PSYCHIATRY (DME) pen needle, diabetic [BD Flory 2nd Gen Pen Needle] 32 gauge x 5/32 needle See Rx Instructions .ROUTE QID Qty: 50 Rx Instructions: As directed alcohol swabs [Alcohol Prep Pads] Pads, Medicated 0 pad topical DIRECTED (DME) pen needle, diabetic [Easy Comfort Pen [place]] 33 gauge x 5/32 needle See Rx Instructions .Route Qty: 100 5RF Rx Instructions: As directed injects 4 X/sday Referrals: Brown Dickson MD [Primary Care Provider] - (I think patient would benefit from physical therapy, there were no acute findings for her today.)
[2022-06-27 13:55] VITALS: BP 130/80; PULSE 60; RESP 16; O2SAT 95
== END 2022-06-27 15:09 | disposition home or self-care (01) ==
PROVIDERS: Emergency Provider Student in an Organized Health Care Education/Training Program; PCP Internal Medicine
DX: R53.1 Weakness (principal); R42 Dizziness and giddiness; R07.89 Other chest pain; R26.81 Unsteadiness on feet; Z20.822 Contact with and (suspected) exposure to COVID-19; Z20.828 Contact with and (suspected) exposure to other viral communicable diseases; Z79.899 Other long term (current) drug therapy
CPT/HCPCS: 0241U; 36415; 71045; 80053; 80164; 81001; 82248; 84484; 85025; 93005; 99283; 99284

== ENCOUNTER 2022-07-10 08:59 | Outpatient (REF) | payer MEDICARE, SELFPAY ==
[2022-07-10 09:10] LABS: MANUAL DIFF FLAG NO
[2022-07-10 09:23] LABS: Basophils Percent Auto 0.4 % (0-2); Eosinophils Absolute Auto 0.2 X10*3/uL (0.0-0.4); Eosinophils Percent Auto 1.6 % (0-4); Hematocrit 41.4 % (37.0-47.0); Hemoglobin 13.5 g/dl (12.0-16.0); Imm Gran Abs Auto 0.13 X10*3/uL (0.00-0.03); Imm Gran Pct Auto 1.4 % (0.0-0.4); Lymphocytes Percent Auto 31.9 % (20-40); Mean Corpuscular HGB Conc 32.6 g/dl (31.0-35.0); Mean Corpuscular Hemoglobin 32.4 pg (27.0-33.0); Mean Corpuscular Volume 99.3 fL (80.0-98.0); Mean Platelet Volume 8.7 fL (9.4-12.3); Monocytes Absolute Auto 0.6 X10*3/uL (0.1-1.2); Neutrophils Absolute Auto 5.5 x10*3/uL (2.0-8.3); Neutrophils Percent Auto 58.7 % (45-73); Platelet Count 256 X10*3/uL (160-400); Red Blood Count 4.17 X10*6/uL (4.20-5.50); Red Cell Distribution Width 13.1 % (11.0-16.0); White Blood Count 9.3 X10*3/uL (4.8-10.8)
[2022-07-10 10:16] LABS: Alanine Aminotransferase 12 U/L (0-31); Albumin Level 4.1 g/dL (3.5-5.0); Alkaline Phosphatase 70 U/L (39-117); Anion Gap 16 (12-20); Aspartate Amino Transferase 13 U/L (5-31); Bilirubin Total 0.3 mg/dL (0.0-1.0); Blood Urea Nitrogen 17 mg/dL (9-16); Calcium 9.6 mg/dL (8.4-10.2); Carbon Dioxide 27 mmol/L (22-29); Chloride 104 mmol/L (96-108); Estimated Glomerular Filt Rate 47; Glucose Random 141 mg/dL (60-115); Potassium 4.8 mmol/L (3.3-5.1); Sodium 142 mmol/L (135-145); Total Protein 6.8 g/dL (6.5-8.0)
== END 2022-07-10 09:00 | disposition home or self-care (01) ==
LOC: HO.LAB 08:59
PROVIDERS: PCP Internal Medicine; Visit Provider Clinical Nurse Specialist Psychiatric/Mental Health, Adult
DX: Z79.899 Other long term (current) drug therapy (principal)
CPT/HCPCS: 36415; 80053; 80164; 85025

== ENCOUNTER → 2022-07-17 14:14 | Outpatient (BNVA) | payer MEDICARE, SELFPAY | PROVIDERS: PCP Internal Medicine; Visit Provider Internal Medicine Endocrinology, Diabetes & Metabolism | DX: E11.9 Type 2 diabetes mellitus without complications (principal); Z79.84 Long term (current) use of oral hypoglycemic drugs | CPT/HCPCS: 82947; 99212 ==

== ENCOUNTER → 2022-07-25 12:00 | Outpatient (BNVA) | payer MEDICARE, SELFPAY | PROVIDERS: PCP Internal Medicine; Visit Provider Dietitian, Registered | DX: E11.9 Type 2 diabetes mellitus without complications (principal) | CPT/HCPCS: 97803 ==

== ENCOUNTER 2022-08-04 00:15 | Emergency (ER) | payer MEDICARE, SELFPAY ==
--- NOTE | 2022-08-04 | ECG_ITS ---
Test Reason : chest pain Blood Pressure : / mmHG Vent. Rate : 072 BPM Atrial Rate : 072 BPM P-R Int : 190 ms QRS Dur : 080 ms QT Int : 392 ms P-R-T Axes : 042 005 014 degrees QTc Int : 429 ms Normal sinus rhythm Normal ECG When compared with ECG of 27-JUN-2022 10:58, No significant change was found Referred By: Alfredo Ruiz Electronically Signed By:Hadley Aguilera
[2022-08-04 00:24] VITALS: BP 131/67; BP 138/80; PULSE 73; PULSE 85; RESP 16; TEMP 36.8; O2SAT 93; BMI 31.1
--- NOTE | 2022-08-04 00:31 | ED_ITS ---
HPI - Chest Pain General Chief Complaint: Chest Pain Stated Complaint: Chest pain Time Seen by Provider: 08/04/22 00:24 Source: patient Mode of arrival: EMS Limitations: no limitations History of Present Illness HPI narrative: Patient with history of paroxysmal atrial fibrillation on Eliquis, hypertension came with sharp chest pain which started at 10:45 and patient lying in the bed trying to sleep chest pain was sharp in character and lasted for few minutes no shortness of breath no diaphoresis no nausea no vomiting no palpitation patient chest pain-free after arrival patient was admitted in 09/04 with similar chest pain. Cardiac monitoring showing sinus rhythm with heart rate 72 beats per minute Related Data Home Medications Medication Instructions Recorded Confirmed lancing device with lancets kit #1 ea 05/11/20 07/17/22 ([employer] Theory Lancing Device kit) buspirone 5 mg tablet 5 mg PO BID anxiety 03/01/22 07/17/22 divalproex 500 mg tablet,extended See Rx Instructions .Route .COMPLEX 03/01/22 07/17/22 release 24 hr lorazepam 1 mg tablet 1 mg PO BEDTIME PRN insomnia 03/01/22 07/17/22 perphenazine 4 mg tablet See Rx Instructions .Route .COMPLEX 03/01/22 07/17/22 risperidone 1 mg tablet 1 mg PO BID 03/01/22 07/17/22 alcohol swabs (Alcohol Prep Pads) 0 pad topical DIRECTED 03/29/22 07/17/22 pen needle, diabetic 32 gauge x #50 ea 04/20/22 07/17/22 5/32 (BD Flory 2nd Gen Pen Needle) Previous Rx's Medication Instructions Recorded lancets 33 gauge #100 ea 05/11/20 lancets 30 gauge (OneTouch Delica See Rx Instructions .Route TID for 10/19/20 Plus Lancet) diabetes mellitus #300 caps blood sugar diagnostic ([employer]Touch 1 strip miscellaneous TID for 01/05/22 Verio test strips) diabetes mellitus #300 strips pantoprazole 40 mg tablet,delayed 40 mg PO DAILY #90 tabs 02/07/22 release ascorbic acid (vitamin C) 500 mg 500 mg PO DAILY #90 tabs 02/08/22 tablet (Vitamin C) levothyroxine 100 mcg tablet 100 mcg PO DAILY #90 tabs 02/08/22 metoprolol succinate 25 mg 25 mg PO DAILY #90 tabs 02/09/22 tablet,extended release 24 hr aluminum-mag hydroxide-simethicone 10 ml PO TID PRN indigestion 10 03/21/22 400 mg-400 mg-40 mg/5 mL oral susp days #100 mL (Maalox Maximum Strength) pen needle, diabetic 33 gauge x #100 ea 03/29/22 (Easy Comfort Pen Keasbey) cholecalciferol (vitamin D3) 25 25 mcg PO DAILY #90 tabs 04/08/22 mcg (1,000 unit) tablet (Vitamin D3) metformin 500 mg tablet,extended 500 mg PO BID #180 tabs 04/08/22 release 24 hr insulin glargine 100 unit/mL (3 24 unit (0.24 mL) subcut .evening 05/15/22 mL) subcutaneous pen (Lantus #15 mL Solostar U-100 Insulin) apixaban 5 mg tablet (Eliquis) 5 mg PO BID #60 tabs 06/04/22 nystatin 100,000 unit/gram topical 1 appl topical BID #15 grams 06/13/22 powder gabapentin 100 mg capsule 100 mg PO TID 30 days #90 caps 07/16/22 dulaglutide 1.5 mg/0.5 mL 1.5 mg (0.5 mL) subcut QWEEK #2 mL 07/17/22 subcutaneous pen injector (Trulicity) atorvastatin 40 mg tablet 40 mg PO DAILY #90 tabs 07/18/22 oxybutynin chloride 5 mg tablet 5 mg PO BID #180 tabs 07/18/22 ferrous fumarate 324 mg (106 mg 324 mg PO DAILY #100 tabs 07/30/22 iron) tablet (Ferrocite) Allergies Allergy/AdvReac Type Severity Reaction Status Date / Time amoxicillin [Amoxicillin] Allergy Intermediate SWELLING, Verified 07/17/22 14:34 rash Sulfa (Sulfonamide Allergy Intermediate itching & Verified 07/17/22 14:34 Antibiotics) bruising codeine [CODEINE] Allergy Unknown RASH Verified 07/17/22 14:34 dicyclomine Allergy Unknown Unknown Verified 07/17/22 14:34 lidocaine [LIDOCAINE] Allergy Unknown UNKNOWN Verified 07/17/22 14:34 lithium [LITHIUM] AdvReac Severe NEPHROGENIC Verified 07/17/22 14:34 DIABETES INSIPIDUS meclizine [Meclizine] AdvReac Intermediate INCREASES Verified 07/17/22 14:34 DIZZINESS simvastatin [SIMVASTATIN] AdvReac Intermediate MYALGIAS Verified 07/17/22 14:34 metronidazole [METRONIDAZOLE] AdvReac Mild FLU LIKE Verified 07/17/22 14:34 SYMPTOMS acyclovir AdvReac Unknown Unknown Verified 07/17/22 14:34 Review of Systems Review of Systems: Yes all other systems are reviewed and are negative [facility] Past Medical History Medical History Acquired hypothyroidism Allergic rhinitis Anemia Bipolar disorder Diabetes mellitus Gait instability GERD without esophagitis High bilirubin History of vitamin D deficiency Hx of diabetes insipidus Hx of strabismus Hypertension Intertrigo Obesity (BMI 30-39.9) PAF (paroxysmal atrial fibrillation) Pain of left lower extremity Pure hypercholesterolemia Vaginal pain Surgical History History of eye surgery History of left breast biopsy Hx of cataract surgery (~07/2017) Hx of colonoscopy Hx of dilation and curettage Family History Family History Father History of cerebral hemorrhage Mother History of cerebral hemorrhage Sister Breast cancer Social History Social History Household Members: Spouse Housing: Apartment Do you presently have visiting nurse or other home services: Yes Alcohol intake: never Patient Tobacco Use Status: Former Tobacco user Quit Date: 8yrs ago Years Smoked: 20 Second Hand Smoke Exposure: Yes Advance Directives: Yes Advance Directives on File: Yes Advance Directives Date on File: 08/24/20 service: No Current occupational status: retired Cognitive needs: Yes (wheelchair) Hearing needs: No Vision needs: Yes (reading glasses) Physical Exam Vital Signs: Vital Signs: Last Vital Signs Temp 98.4 F 08/04/22 01:57 Pulse 70 08/04/22 01:57 Resp 19 08/04/22 01:57 BP 112/63 08/04/22 01:57 Pulse Ox 94 08/04/22 01:57 O2 Del Method 08/04/22 01:57 BMI result Body Mass Index 31.1 Appearance: Alert. Oriented X3. No acute distress. Eyes: No pallor or icterus ENT: Pharynx normal. Oral Mucosa moist Neck: Normal inspection. Neck supple. CVS: Normal heart rate and rhythm. Pulses normal. Respiratory: No respiratory distress. Equal air entry bilateral, no wheezing/rales/rhonchi Abdomen: Soft and nontender. Bowel sounds are present, no mass palpable, no CVA tenderness Skin: Skin warm and dry. Normal skin color. Normal skin turgor. Extremities: No lower extremity edema. No calf tenderness Neuro: Oriented X 3. No motor deficit. Medical Decision Making Lab Data 08/04/22 01:14 08/04/22 01:14 Labs: Lab Results 08/04/22 08/04/22 08/04/22 Range/Units 00:49 01:14 01:14 WBC 10.7 (4.8-10.8) X10*3/uL RBC 3.82 L (4.20-5.50) X10*6/uL Hgb 12.3 (12.0-16.0) g/dl Hct 37.6 (37.0-47.0) % MCV 98.4 H (80.0-98.0) fL MCH 32.2 (27.0-33.0) pg MCHC 32.7 (31.0-35.0) g/dl RDW 13.4 (11.0-16.0) % Plt Count 225 (160-400) X10*3/uL MPV 8.9 L (9.4-12.3) fL Immature Gran % (Auto) 1.3 H (0.0-0.4) % Neut % (Auto) 59.7 (45-73) % Lymph % (Auto) 30.1 (20-40) % [place] % (Auto) 6.9 (2-11) % Eos % (Auto) 1.6 (0-4) % Baso % (Auto) 0.4 (0-2) % Lymph # (Auto) 3.2 (1.2-4.9) X10*3/uL [place] # (Auto) 0.7 (0.1-1.2) X10*3/uL Eos # (Auto) 0.2 (0.0-0.4) X10*3/uL Baso # (Auto) 0.0 (0.0-0.2) X10*3/uL Abs Immat Gran (auto) 0.14 H (0.00-0.03) X10*3/uL Absolute Neuts (auto) 6.4 (2.0-8.3) x10*3/uL Absolute Nucleated RBC 0.000 (0.0-0.012) X10*3/uL Nucleated RBC % (auto) 0.0 (0.0-0.2) /100WBC Sodium 142 (135-145) mmol/L Potassium 4.4 (3.3-5.1) mmol/L Chloride 105 (96-108) mmol/L Carbon Dioxide 24 (22-29) mmol/L Anion Gap 17 (12-20) BUN 17 H (9-16) mg/dL Creatinine 0.90 (0.5-1.4) mg/dL Estim Creat Clear Calc 61.1 Estimated GFR > 60 Random Glucose 129 H (60-115) mg/dL Calcium 9.3 (8.4-10.2) mg/dL Total Bilirubin 0.4 (0.0-1.0) mg/dL AST 13 (5-31) U/L ALT 13 (0-31) U/L Alkaline Phosphatase 63 (39-117) U/L Troponin I High Sens (<3.5-17.0) ng/L Total Protein 6.0 L (6.5-8.0) g/dL Albumin 3.6 (3.5-5.0) g/dL Urine Color Yellow Urine Appearance Clear Urine pH 6.5 (5.0-9.0) Ur Specific [place] <= 1.005 (1.005-1.025) Urine Protein Negative (Neg-Trace) mg/dL Urine Glucose (UA) Negative (Negative) mg/dL Urine Ketones Negative (Negative) mg/dL Urine Blood Negative (Negative) Urine Nitrite Negative (Negative) Ur Leukocyte Esterase Negative (Negative) Urine RBC 0-2 (0-2) /HPF Urine WBC 0-5 (0-5) /HPF Ur Squamous Epith Cells 0-2 (0-2) /HPF Urine Bacteria None Seen (None Seen) Hyaline Casts 0-2 (0-2) /LPF 08/04/22 Range/Units 01:14 WBC (4.8-10.8) X10*3/uL RBC (4.20-5.50) X10*6/uL Hgb (12.0-16.0) g/dl Hct (37.0-47.0) % MCV (80.0-98.0) fL MCH (27.0-33.0) pg MCHC (31.0-35.0) g/dl RDW (11.0-16.0) % Plt Count (160-400) X10*3/uL MPV (9.4-12.3) fL Immature Gran % (Auto) (0.0-0.4) % Neut % (Auto) (45-73) % Lymph % (Auto) (20-40) % [place] % (Auto) (2-11) % Eos % (Auto) (0-4) % Baso % (Auto) (0-2) % Lymph # (Auto) (1.2-4.9) X10*3/uL [place] # (Auto) (0.1-1.2) X10*3/uL Eos # (Auto) (0.0-0.4) X10*3/uL Baso # (Auto) (0.0-0.2) X10*3/uL Abs Immat Gran (auto) (0.00-0.03) X10*3/uL Absolute Neuts (auto) (2.0-8.3) x10*3/uL Absolute Nucleated RBC (0.0-0.012) X10*3/uL Nucleated RBC % (auto) (0.0-0.2) /100WBC Sodium (135-145) mmol/L Potassium (3.3-5.1) mmol/L Chloride (96-108) mmol/L Carbon Dioxide (22-29) mmol/L Anion Gap (12-20) BUN (9-16) mg/dL Creatinine (0.5-1.4) mg/dL Estim Creat Clear Calc Estimated GFR Random Glucose (60-115) mg/dL Calcium (8.4-10.2) mg/dL Total Bilirubin (0.0-1.0) mg/dL AST (5-31) U/L ALT (0-31) U/L Alkaline Phosphatase (39-117) U/L Troponin I High Sens < 3.5 (<3.5-17.0) ng/L Total Protein (6.5-8.0) g/dL Albumin (3.5-5.0) g/dL Urine Color Urine Appearance Urine pH (5.0-9.0) Ur Specific [place] (1.005-1.025) Urine Protein (Neg-Trace) mg/dL Urine Glucose (UA) (Negative) mg/dL Urine Ketones (Negative) mg/dL Urine Blood (Negative) Urine Nitrite (Negative) Ur Leukocyte Esterase (Negative) Urine RBC (0-2) /HPF Urine WBC (0-5) /HPF Ur Squamous Epith Cells (0-2) /HPF Urine Bacteria (None Seen) Hyaline Casts (0-2) /LPF Independent Interpretation I performed an independent interpretation of an: EKG Interpretation: Normal sinus rhythm heart rate 72 beats per minute normal interval normal axis no acute ischemic impression normal EKG Discharge Plan Discharge Clinical Impression: Chest pain Patient Disposition: Home, Self-Care Instructions: Chest Pain (ED) Additional Instructions: Continue your medications Your chest pain was likely from irregular heartbeat/AFib Report to the ER if any palpitation passing out episode or worsening of chest pain Prescriptions: No Action (DME) lancets 33 gauge misc See Rx Instructions .ROUTE .MEDSUPPLY Qty: 100 0RF Rx Instructions: As directed (DME) lancing device with lancets [[employer] Delica Lanc Device] Kit See Rx Instructions .ROUTE .MEDSUPPLY Qty: 1 Rx Instructions: As directed lancets [OneTouch Delica Plus Lancet] 30 gauge misc See Rx Instructions .ROUTE TID Qty: 300 3RF Rx Instructions: 3 times a day; [employer] Verio test strips Strip 1 strip miscellaneous TID Qty: 300 3RF pantoprazole 40 mg tablet,delayed release (DR/EC) 40 mg PO DAILY Qty: 90 2RF levothyroxine 100 mcg tablet 100 mcg PO DAILY Qty: 90 1RF ascorbic acid (vitamin C) [Vitamin C] 500 mg tablet 500 mg PO DAILY Qty: 90 3RF metoprolol succinate 25 mg tablet extended release 24 hr 25 mg PO DAILY Qty: 90 1RF alum-mag hydroxide-simeth [Maalox Maximum Strength] 400-400-40 mg/5 mL suspension 10 ml PO TID PRN (Reason: indigestion) 10 Days Qty: 100 0RF metformin 500 mg tablet extended release 24 hr 500 mg PO BID Qty: 180 0RF cholecalciferol (vitamin D3) [Vitamin D3] 25 mcg (1,000 unit) tablet 25 mcg PO DAILY Qty: 90 5RF insulin glargine [Lantus Solostar U-100 Insulin] 100 unit/mL (3 mL) insulin pen 24 unit subcut .evening Qty: 15 4RF Eliquis 5 mg tablet 5 mg PO BID Qty: 60 2RF nystatin 100,000 unit/gram powder 1 appl topical BID Qty: 15 1RF gabapentin 100 mg capsule 100 mg PO TID 30 Days Qty: 90 3RF atorvastatin 40 mg tablet 40 mg PO DAILY Qty: 90 3RF oxybutynin chloride 5 mg tablet 5 mg PO BID Qty: 180 1RF ferrous fumarate [Ferrocite] 324 mg (106 mg iron) tablet 324 mg PO DAILY Qty: 100 2RF divalproex 500 mg tablet extended release 24 hr See Rx Instructions .ROUTE .COMPLEX Label Comments: mood stabilizer Rx Instructions: 500 mg Q AM and 1000 mg Q HS -- SHOULD BE PRESCRIBED AND REFILLED BY PSYCHIATRY perphenazine 4 mg tablet See Rx Instructions .ROUTE .COMPLEX Label Comments: to help clear thoughts Rx Instructions: 4 mg QAM and 8 mg QHS -- SHOULD BE PRESCRIBED AND REFILLED BY PSYCHIATRY risperidone 1 mg tablet 1 mg PO BID Label Comments: to help clear thoughts Rx Instructions: SHOULD BE PRESCRIBED AND REFILLED BY PSYCHIATRY buspirone 5 mg tablet 5 mg PO BID Label Comments: for anxiety Rx Instructions: SHOULD BE PRESCRIBED AND REFILLED BY PSYCHIATRY lorazepam 1 mg tablet 1 mg PO BEDTIME PRN (Reason: insomnia) Label Comments: for insomnia Rx Instructions: SHOULD BE PRESCRIBED AND REFILLED BY PSYCHIATRY (DME) pen needle, diabetic [BD Flory 2nd Gen Pen Needle] 32 gauge x 5/32 needle See Rx Instructions .ROUTE QID Qty: 50 Rx Instructions: As directed alcohol swabs [Alcohol Prep Pads] Pads, Medicated 0 pad topical DIRECTED (DME) pen needle, diabetic [Easy Comfort Pen Keasbey] 33 gauge x 5/32 needle See Rx Instructions .Route Qty: 100 5RF Rx Instructions: As directed injects 4 X/sday Trulicity 1.5 mg/0.5 mL pen injector 1.5 mg subcut QWEEK Qty: 2 5RF
[2022-08-04 00:58] LABS: Appearance Urine Clear; Color Urine Yellow; Glucose Urine UA Negative (Negative); Leukocyte Esterase Urine Negative (Negative); Nitrite Urine Negative (Negative); PH 6.5 (5.0-9.0); Specific Gravity - Urine <= 1.005 (1.005-1.025); Urine Blood Negative (Negative); Urine Ketones Negative (Negative); Urine Protein Negative (Neg-Trace)
[2022-08-04 01:03] LABS: Bacteria Urine None Seen (None Seen); Hyaline Casts Urine 0-2 /LPF (0-2); RBC Urine 0-2 /HPF (0-2); Squamous Epithelial Cell Urine 0-2 /HPF (0-2); WBC Urine 0-5 /HPF (0-5)
[2022-08-04 01:20] LABS: MANUAL DIFF FLAG NO
[2022-08-04 01:23] LABS: Basophils Percent Auto 0.4 % (0-2); Eosinophils Absolute Auto 0.2 X10*3/uL (0.0-0.4); Eosinophils Percent Auto 1.6 % (0-4); Hematocrit 37.6 % (37.0-47.0); Hemoglobin 12.3 g/dl (12.0-16.0); Imm Gran Abs Auto 0.14 X10*3/uL (0.00-0.03); Imm Gran Pct Auto 1.3 % (0.0-0.4); Lymphocytes Absolute Auto 3.2 X10*3/uL (1.2-4.9); Lymphocytes Percent Auto 30.1 % (20-40); Mean Corpuscular HGB Conc 32.7 g/dl (31.0-35.0); Mean Corpuscular Hemoglobin 32.2 pg (27.0-33.0); Mean Corpuscular Volume 98.4 fL (80.0-98.0); Mean Platelet Volume 8.9 fL (9.4-12.3); Monocytes Absolute Auto 0.7 X10*3/uL (0.1-1.2); Monocytes Percent Auto 6.9 % (2-11); Neutrophils Absolute Auto 6.4 x10*3/uL (2.0-8.3); Neutrophils Percent Auto 59.7 % (45-73); Platelet Count 225 X10*3/uL (160-400); Red Blood Count 3.82 X10*6/uL (4.20-5.50); Red Cell Distribution Width 13.4 % (11.0-16.0); White Blood Count 10.7 X10*3/uL (4.8-10.8)
[2022-08-04 01:43] LABS: Alanine Aminotransferase 13 U/L (0-31); Albumin Level 3.6 g/dL (3.5-5.0); Alkaline Phosphatase 63 U/L (39-117); Anion Gap 17 (12-20); Aspartate Amino Transferase 13 U/L (5-31); Bilirubin Total 0.4 mg/dL (0.0-1.0); Blood Urea Nitrogen 17 mg/dL (9-16); Calcium 9.3 mg/dL (8.4-10.2); Carbon Dioxide 24 mmol/L (22-29); Chloride 105 mmol/L (96-108); Creatinine Clr Calc Pharmacy 61.1; Estimated Glomerular Filt Rate > 60; Glucose Random 129 mg/dL (60-115); Potassium 4.4 mmol/L (3.3-5.1); Sodium 142 mmol/L (135-145)
[2022-08-04 01:47] LABS: Troponin-I High Sensitivity < 3.5 ng/L (<3.5-17.0)
[2022-08-04 01:57] VITALS: BP 112/63; PULSE 70; RESP 19; TEMP 36.9; O2SAT 94
== END 2022-08-04 04:13 | disposition home or self-care (01) ==
PROVIDERS: Emergency Provider Internal Medicine; PCP Internal Medicine
DX: R07.9 Chest pain, unspecified (principal); E11.9 Type 2 diabetes mellitus without complications; I10 Essential (primary) hypertension; E78.00 Pure hypercholesterolemia, unspecified; I48.0 Paroxysmal atrial fibrillation; Z79.899 Other long term (current) drug therapy; Z79.01 Long term (current) use of anticoagulants; Z79.4 Long term (current) use of insulin; Z79.02 Long term (current) use of antithrombotics/antiplatelets
CPT/HCPCS: 36415; 80053; 81001; 84484; 85025; 93005; 99283; 99284

== ENCOUNTER 2022-09-12 10:29 | Emergency (ER) | payer MEDICARE, SELFPAY ==
[2022-09-12 10:33] VITALS: BP 137/64; PULSE 73; RESP 18; TEMP 36.7; O2SAT 97; BMI 31.9
--- NOTE | 2022-09-12 11:04 | ED_ITS ---
HPI - General Adult General Chief complaint: General Medical Stated complaint: Tongue swelling/Dizziness Time Seen by Provider: 09/12/22 11:04 Source: patient Mode of arrival: ambulatory Limitations: no limitations History of Present Illness HPI narrative: Patient is a 77 year old assigned female at with a history of HTN and type 2 DM presenting to the emergency department today after 2 episodes of a swollen tongue. Patient states that 2 days ago she woke up with her tongue swollen and after 2 hours of being awake, the swelling went away. Patient states that this happened again yesterday, and it went away again. Denies having any numbness or tingling to the tongue or lips. Patient states that she has not introduced new food or medication besides taking Trulicity for the past 7 weeks. Reports she has been tolerating fluids and food well, no trouble with swallowing. Reports scraping her left eye with her finger nails 4 days ago while putting in eyedrop and has noticed redness on that eye since. Denies any pain, changes in vision, or abnormal discharge from the affected eye. Patient denies any dizziness, lightheadedness, abdominal pain, nausea, vomiting, fever, chills, blurry vision, double vision, loss of vision, chest pain, difficulty breathing, shortness of breath, back pain, night sweats, pain with urination, increased urinary frequency, increased urinary urgency, blood in her urine or stool, syncope or a near syncopal episode, recent trauma or falls, bowel incontinence, bladder incontinence, bowel retention, bladder retention, or any other complaints at this time. Onset (ago): day(s) (2) Location: mouth (tongue) and left (eye) Radiation: non-radiation Severity: mild Severity scale (1-10): 2 Relieving factors: none Exacerbating factors: none Associated symptoms: denies other symptoms Treatments prior to arrival: none Related Data Home Medications Medication Instructions Recorded Confirmed lancing device with lancets kit #1 ea 05/11/20 08/22/22 (Sing Ting Delicious Lancing Device kit) buspirone 5 mg tablet 5 mg PO BID anxiety 03/01/22 08/22/22 divalproex 500 mg tablet,extended See Rx Instructions .Route .COMPLEX 03/01/22 08/22/22 release 24 hr lorazepam 1 mg tablet 1 mg PO BEDTIME PRN insomnia 03/01/22 08/22/22 perphenazine 4 mg tablet See Rx Instructions .Route .COMPLEX 03/01/22 08/22/22 risperidone 1 mg tablet 1 mg PO BID 03/01/22 08/22/22 alcohol swabs (Alcohol Prep Pads) 0 pad topical DIRECTED 03/29/22 08/22/22 pen needle, diabetic 32 gauge x #50 ea 04/20/22 07/17/22 (BD Flory 2nd Gen Pen Needle) Previous Rx's Medication Instructions Recorded lancets 33 gauge #100 ea 05/11/20 lancets 30 gauge (OneTouch Delica See Rx Instructions .Route TID for 10/19/20 Plus Lancet) diabetes mellitus #300 caps blood sugar diagnostic (OneTouch 1 strip miscellaneous TID for 01/05/22 Verio test strips) diabetes mellitus #300 strips pantoprazole 40 mg tablet,delayed 40 mg PO DAILY #90 tabs 02/07/22 release ascorbic acid (vitamin C) 500 mg 500 mg PO DAILY #90 tabs 02/08/22 tablet (Vitamin C) metoprolol succinate 25 mg 25 mg PO DAILY #90 tabs 02/09/22 tablet,extended release 24 hr aluminum-mag hydroxide-simethicone 10 ml PO TID PRN indigestion 10 03/21/22 400 mg-400 mg-40 mg/5 mL oral susp days #100 mL (Maalox Maximum Strength) pen needle, diabetic 33 gauge x #100 ea 03/29/22 (Easy Comfort Pen [place]) cholecalciferol (vitamin D3) 25 25 mcg PO DAILY #90 tabs 04/08/22 mcg (1,000 unit) tablet (Vitamin D3) insulin glargine 100 unit/mL (3 24 unit (0.24 mL) subcut .evening 05/15/22 mL) subcutaneous pen (Lantus #15 mL Solostar U-100 Insulin) nystatin 100,000 unit/gram topical 1 appl topical BID #15 grams 06/13/22 powder gabapentin 100 mg capsule 100 mg PO TID 30 days #90 caps 07/16/22 dulaglutide 1.5 mg/0.5 mL 1.5 mg (0.5 mL) subcut QWEEK #2 mL 07/17/22 subcutaneous pen injector (Trulicity) atorvastatin 40 mg tablet 40 mg PO DAILY #90 tabs 07/18/22 oxybutynin chloride 5 mg tablet 5 mg PO BID #180 tabs 07/18/22 ferrous fumarate 324 mg (106 mg 324 mg PO DAILY #100 tabs 07/30/22 iron) tablet (Ferrocite) apixaban 5 mg tablet (Eliquis) 5 mg PO BID #60 tabs 09/05/22 metformin 500 mg tablet,extended 500 mg PO BID #180 tabs 09/09/22 release 24 hr levothyroxine 100 mcg tablet 100 mcg PO DAILY #90 tabs 09/12/22 prednisone 20 mg tablet 20 mg PO DAILY 7 days #7 tabs 09/12/22 Allergies Allergy/AdvReac Type Severity Reaction Status Date / Time amoxicillin [Amoxicillin] Allergy Intermediate SWELLING, Verified 09/12/22 10:38 rash Sulfa (Sulfonamide Allergy Intermediate itching & Verified 09/12/22 10:38 Antibiotics) bruising codeine [CODEINE] Allergy Unknown RASH Verified 09/12/22 10:38 dicyclomine Allergy Unknown Unknown Verified 09/12/22 10:38 lidocaine [LIDOCAINE] Allergy Unknown UNKNOWN Verified 09/12/22 10:38 lithium [LITHIUM] AdvReac Severe NEPHROGENIC Verified 09/12/22 10:38 DIABETES INSIPIDUS meclizine [Meclizine] AdvReac Intermediate INCREASES Verified 09/12/22 10:38 DIZZINESS simvastatin [SIMVASTATIN] AdvReac Intermediate MYALGIAS Verified 09/12/22 10:38 metronidazole [METRONIDAZOLE] AdvReac Mild FLU LIKE Verified 09/12/22 10:38 SYMPTOMS acyclovir AdvReac Unknown Unknown Verified 09/12/22 10:38 Review of Systems Review of Systems: Yes all other systems are reviewed and are negative Constitutional: Constitutional: Reports no additional constitutional complaints Eyes: Eyes: Denies blurry vision, Denies change in vision, Denies diplopia, Denies eye discharge, Reports dry eyes, Denies itchy eyes and Denies loss of vision ENT: Reports system reviewed and no additional complaints, except as documented and Denies dizziness Comments: tongue swelling - currently resolved Cardiovascular: Cardiovascular: Reports no additional cardiovascular complaints Respiratory: Respiratory: Reports no additional respiratory complaints Gastrointestinal: Gastrointestinal: Reports no additional gastrointestinal complaints Genitourinary: Genitourinary: Denies hematuria, Denies urinary frequency, Denies dysuria, Denies urinary incontinence, Denies urinary hesitancy and Denies urinary urgency Musculoskeletal: Musculoskeletal: Reports no additional musculoskeletal complaints, Denies numbness and Denies tingling Neurologic: Denies dizziness, Denies loss of vision, Denies numbness and Denies tingling Psychiatric: Psychiatric: Reports no additional psychiatric complaints Endocrine: Endocrine: Reports no additional endocrine complaints Hematologic/Lymphatic: Hematologic/Lymphatic: Reports no additional hematologic/lymphatic complaints Allergic/Immunologic: Allergic/Immunologic: Denies itchy eyes PMFSH Past Medical History Attestation statement: The following information was validated with the patient. Source: old records reviewed and nursing notes reviewed Medical History Acquired hypothyroidism Allergic rhinitis Anemia Bipolar disorder Diabetes mellitus Gait instability GERD without esophagitis High bilirubin History of vitamin D deficiency Hx of diabetes insipidus Hx of strabismus Hypertension Intertrigo Obesity (BMI 30-39.9) PAF (paroxysmal atrial fibrillation) Pain of left lower extremity Pure hypercholesterolemia Vaginal pain Surgical History History of eye surgery History of left breast biopsy Hx of cataract surgery (~07/2017) Hx of colonoscopy Hx of dilation and curettage Family History Family History Father History of cerebral hemorrhage Mother History of cerebral hemorrhage Sister Breast cancer Social History Social History Household Members: Spouse Housing: Apartment Do you presently have visiting nurse or other home services: Yes Alcohol intake: never Patient Tobacco Use Status: Former Tobacco user Quit Date: 8yrs ago Years Smoked: 20 Smoked in Last 30 Days: No e-Cigarette/Vaping Use: Never Used Second Hand Smoke Exposure: Yes Use of substances other than those prescribed or required for medical reasons: No Advance Directives: Yes Advance Directives on File: Yes Advance Directives Date on File: 08/24/20 service: No Current occupational status: retired Cognitive needs: Yes (wheelchair) Hearing needs: No Vision needs: Yes (reading glasses) Physical Exam ED Vital Signs: Vital Signs - 24 hr 09/12/22 10:33 09/12/22 12:05 Temperature 98.0 F Pulse Rate 73 68 Respiratory Rate 18 16 Blood Pressure 137/64 121/69 Pulse Oximetry 97 93 Oxygen Delivery Method Room Air Room Air BMI result Body Mass Index 31.9 Const General: cooperative Nutritional Appearance: average body habitus Orientation/consciousness: oriented to person, oriented to place and oriented to time Limitations: no limitations HENMT Head: Yes normal to inspection Ears: hearing grossly normal bilaterally General nose exam: Normal external nose present Face and sinus: Yes normal facial exam Mouth: tongue normal and moist mucous membranes Teeth and gingiva: dentures Eyes Visual Mosquera: normal visual mosquera by confrontation Periorbital: periorbital findings normal Eyelids: Yes eyelids normal Conjunctivae: conjunctival abnormal left subconjunctival hemorrhage Pupils: Equal, round and reactive pupils present EOM: EOMs intact bilaterally Neck Neck: Yes normal visual inspection Chest Chest palpation & inspection: normal inspection of the chest Resp Effort & Inspection: normal respiratory effort Auscultation: clear to auscultation bilaterally Cardio Rate: regular rate Rhythm: regular rhythm GI Inspection: Yes normal to inspection Palpation (GI): Soft to palpation, not firm, nontender and no guarding Neuro General: oriented to person, oriented to place and oriented to time Cranial nerves: Yes Equal, round and reactive pupils present Cognition (Neuro): normal cognition Motor exam (neuro): 5/5 motor strength present throughout Sensory Exam: Normal double simultaneous stimulation for sensation Coordination: [id number] test normal Extrem General: Yes normal to inspection, Yes full ROM and Yes capillary refill normal Psych Appearance: grossly normal Mental Status: mental status grossly normal Affect: normal affect Attitude: cooperative Thought process: Normal thought process present Thought content: Normal thought content present Insight: Good insight present (Psych) Medical Decision Making Medical Decision Making MDM Narrative: Patient is a 77 year old assigned female at with a history of HTN and type 2 DM presenting to the emergency department today after 2 episodes of tongue swelling that resolved. Patient's physical exam showed a left subconjunctival hemorrhage but was otherwise unremarkable. Patient's blood work was unremarkable. I explained my physical exam findings as well as all test results to the patient and the patient's . I answered all questions asked by the patient and the patient's . I stressed the importance of the patient taking her medication as prescribed. I stressed the importance of the patient following up with her primary care provider. I stressed the importance of the patient returning to the emergency department immediately if her symptoms were to worsen or if she were to develop any dizziness, shortness of breath, difficulty breathing, chest pain, blurry vision, loss of vision, nausea, vomiting, abdominal pain, fever, chills, back pain, or any other complaints. Patient and the patient's verbalized agreement and understanding with this treatment plan and discharge. Differential Diagnosis Differential Diagnoses: The differential diagnosis associated with the presentation includes idiopathic tongue swelling Lab Data MDM Lab Attestation statement: I reviewed the patient's lab results. 09/12/22 11:25 09/12/22 11:25 Labs: Lab Results 09/12/22 09/12/22 09/12/22 Range/Units 11:25 11:25 11:34 WBC 8.3 (4.8-10.8) X10*3/uL RBC 4.05 L (4.20-5.50) X10*6/uL Hgb 12.9 (12.0-16.0) g/dl Hct 39.7 (37.0-47.0) % MCV 98.0 (80.0-98.0) fL MCH 31.9 (27.0-33.0) pg MCHC 32.5 (31.0-35.0) g/dl RDW 13.7 (11.0-16.0) % Plt Count 235 (160-400) X10*3/uL MPV 8.7 L (9.4-12.3) fL Immature Gran % (Auto) 1.3 H (0.0-0.4) % Neut % (Auto) 69.6 (45-73) % Lymph % (Auto) 21.5 (20-40) % [place] % (Auto) 6.4 (2-11) % Eos % (Auto) 0.8 (0-4) % Baso % (Auto) 0.4 (0-2) % Lymph # (Auto) 1.8 (1.2-4.9) X10*3/uL [place] # (Auto) 0.5 (0.1-1.2) X10*3/uL Eos # (Auto) 0.1 (0.0-0.4) X10*3/uL Baso # (Auto) 0.0 (0.0-0.2) X10*3/uL Abs Immat Gran (auto) 0.11 H (0.00-0.03) X10*3/uL Absolute Neuts (auto) 5.8 (2.0-8.3) x10*3/uL Absolute Nucleated RBC 0.000 (0.0-0.012) X10*3/uL Nucleated RBC % (auto) 0.0 (0.0-0.2) /100WBC Sodium 142 (135-145) mmol/L Potassium 4.9 (3.3-5.1) mmol/L Chloride 104 (96-108) mmol/L Carbon Dioxide 28 (22-29) mmol/L Anion Gap 15 (12-20) BUN 14 (9-16) mg/dL Creatinine 0.96 (0.5-1.4) mg/dL Estim Creat Clear Calc 57.1 Estimated GFR 57 Random Glucose 127 H (60-115) mg/dL Estimat Average Glucose 140 mg/dL Hemoglobin A1c % 6.5 % Calcium 9.3 (8.4-10.2) mg/dL Magnesium 1.8 (1.6-2.6) mg/dL Total Bilirubin 0.4 (0.0-1.0) mg/dL AST 14 (5-31) U/L ALT 15 (0-31) U/L Alkaline Phosphatase 78 (39-117) U/L Total Protein 6.5 (6.5-8.0) g/dL Albumin 3.9 (3.5-5.0) g/dL Independent Historian Clinical information obtained from an independent historian. History obtained from or confirmed by: Spouse () Discharge Plan Discharge Clinical Impression: Tongue swelling Patient Disposition: Home, Self-Care Additional Instructions: Follow up with your primary care provider. Return to the emergency department immediately if your symptoms worsen or if you develop any dizziness, shortness of breath, difficulty breathing, chest pain, blurry vision, loss of vision, nausea, vomiting, abdominal pain, fever, chills, back pain, or any other complaints. Prescriptions: New prednisone 20 mg tablet 20 mg PO DAILY 7 Days Qty: 7 0RF No Action (DME) lancets 33 gauge misc See Rx Instructions .ROUTE .MEDSUPPLY Qty: 100 0RF Rx Instructions: As directed (DME) lancing device with lancets [[employer] [place] Lanc Device] Kit See Rx Instructions .ROUTE .MEDSUPPLY Qty: 1 Rx Instructions: As directed lancets [OneTouch Delica Plus Lancet] 30 gauge misc See Rx Instructions .ROUTE TID Qty: 300 3RF Rx Instructions: 3 times a day; OneTouch Verio test strips Strip 1 strip miscellaneous TID Qty: 300 3RF pantoprazole 40 mg tablet,delayed release (DR/EC) 40 mg PO DAILY Qty: 90 2RF ascorbic acid (vitamin C) [Vitamin C] 500 mg tablet 500 mg PO DAILY Qty: 90 3RF metoprolol succinate 25 mg tablet extended release 24 hr 25 mg PO DAILY Qty: 90 1RF alum-mag hydroxide-simeth [Maalox Maximum Strength] 400-400-40 mg/5 mL suspension 10 ml PO TID PRN (Reason: indigestion) 10 Days Qty: 100 0RF cholecalciferol (vitamin D3) [Vitamin D3] 25 mcg (1,000 unit) tablet 25 mcg PO DAILY Qty: 90 5RF insulin glargine [Lantus Solostar U-100 Insulin] 100 unit/mL (3 mL) insulin pen 24 unit subcut .evening Qty: 15 4RF nystatin 100,000 unit/gram powder 1 appl topical BID Qty: 15 1RF gabapentin 100 mg capsule 100 mg PO TID 30 Days Qty: 90 3RF atorvastatin 40 mg tablet 40 mg PO DAILY Qty: 90 3RF oxybutynin chloride 5 mg tablet 5 mg PO BID Qty: 180 1RF ferrous fumarate [Ferrocite] 324 mg (106 mg iron) tablet 324 mg PO DAILY Qty: 100 2RF Eliquis 5 mg tablet 5 mg PO BID Qty: 60 2RF metformin 500 mg tablet extended release 24 hr 500 mg PO BID Qty: 180 0RF levothyroxine 100 mcg tablet 100 mcg PO DAILY Qty: 90 1RF divalproex 500 mg tablet extended release 24 hr See Rx Instructions .ROUTE .COMPLEX Patient Comments: mood stabilizer Rx Instructions: 500 mg Q AM and 1000 mg Q HS -- SHOULD BE PRESCRIBED AND REFILLED BY PSYCHIATRY perphenazine 4 mg tablet See Rx Instructions .ROUTE .COMPLEX Patient Comments: to help clear thoughts Rx Instructions: 4 mg QAM and 8 mg QHS -- SHOULD BE PRESCRIBED AND REFILLED BY PSYCHIATRY risperidone 1 mg tablet 1 mg PO BID Patient Comments: to help clear thoughts Rx Instructions: SHOULD BE PRESCRIBED AND REFILLED BY PSYCHIATRY buspirone 5 mg tablet 5 mg PO BID Patient Comments: for anxiety Rx Instructions: SHOULD BE PRESCRIBED AND REFILLED BY PSYCHIATRY lorazepam 1 mg tablet 1 mg PO BEDTIME PRN (Reason: insomnia) Patient Comments: for insomnia Rx Instructions: SHOULD BE PRESCRIBED AND REFILLED BY PSYCHIATRY (DME) pen needle, diabetic [BD Flory 2nd Gen Pen Needle] 32 gauge x 5/32 needle See Rx Instructions .ROUTE QID Qty: 50 Rx Instructions: As directed alcohol swabs [Alcohol Prep Pads] Pads, Medicated 0 pad topical DIRECTED (DME) pen needle, diabetic [Easy Comfort Pen [place]] 33 gauge x 5/32 needle See Rx Instructions .Route Qty: 100 5RF Rx Instructions: As directed injects 4 X/sday Trulicity 1.5 mg/0.5 mL pen injector 1.5 mg subcut QWEEK Qty: 2 5RF Referrals: Brown Dickson MD [Primary Care Provider] - Interventions: ED Discharge Assessment Last Done: 09/12/22 13:51 Discharge Date/Time: 09/12/22 13:51 Print Language: Bangladeshi
[2022-09-12 11:37] LABS: MANUAL DIFF FLAG NO
[2022-09-12 11:41] LABS: Basophils Percent Auto 0.4 % (0-2); Eosinophils Absolute Auto 0.1 X10*3/uL (0.0-0.4); Eosinophils Percent Auto 0.8 % (0-4); Hematocrit 39.7 % (37.0-47.0); Hemoglobin 12.9 g/dl (12.0-16.0); Imm Gran Abs Auto 0.11 X10*3/uL (0.00-0.03); Imm Gran Pct Auto 1.3 % (0.0-0.4); Lymphocytes Absolute Auto 1.8 X10*3/uL (1.2-4.9); Lymphocytes Percent Auto 21.5 % (20-40); Mean Corpuscular HGB Conc 32.5 g/dl (31.0-35.0); Mean Corpuscular Hemoglobin 31.9 pg (27.0-33.0); Mean Platelet Volume 8.7 fL (9.4-12.3); Monocytes Absolute Auto 0.5 X10*3/uL (0.1-1.2); Monocytes Percent Auto 6.4 % (2-11); Neutrophils Absolute Auto 5.8 x10*3/uL (2.0-8.3); Neutrophils Percent Auto 69.6 % (45-73); Platelet Count 235 X10*3/uL (160-400); Red Blood Count 4.05 X10*6/uL (4.20-5.50); Red Cell Distribution Width 13.7 % (11.0-16.0); White Blood Count 8.3 X10*3/uL (4.8-10.8)
[2022-09-12 11:52] LABS: Alanine Aminotransferase 15 U/L (0-31); Albumin Level 3.9 g/dL (3.5-5.0); Alkaline Phosphatase 78 U/L (39-117); Anion Gap 15 (12-20); Aspartate Amino Transferase 14 U/L (5-31); Bilirubin Total 0.4 mg/dL (0.0-1.0); Blood Urea Nitrogen 14 mg/dL (9-16); Calcium 9.3 mg/dL (8.4-10.2); Carbon Dioxide 28 mmol/L (22-29); Chloride 104 mmol/L (96-108); Creatinine Clr Calc Pharmacy 57.1; Estimated Glomerular Filt Rate 57; Glucose Random 127 mg/dL (60-115); Magnesium 1.8 mg/dL (1.6-2.6); Potassium 4.9 mmol/L (3.3-5.1); Sodium 142 mmol/L (135-145); Total Protein 6.5 g/dL (6.5-8.0)
[2022-09-12 11:58] LABS: Estimated Average Glucose 140 mg/dL; Hemoglobin A1c % 6.5 %
[2022-09-12 12:05] VITALS: BP 121/69; PULSE 68; RESP 16; O2SAT 93
== END 2022-09-12 13:51 | disposition home or self-care (01) ==
PROVIDERS: Physician Assistant Medical; Emergency Provider Emergency Medicine; PCP Internal Medicine
DX: R42 Dizziness and giddiness (principal); K12.1 Other forms of stomatitis; Z79.899 Other long term (current) drug therapy
CPT/HCPCS: 36415; 80053; 83036; 83735; 85025; 99283; 99284

== ENCOUNTER 2022-09-26 10:05 | Outpatient (AMB) | payer MEDICARE, SELFPAY ==
[2022-09-26 10:34] VITALS: BP 108/62; PULSE 67; O2SAT 98
--- NOTE | 2022-09-26 10:34 | A.OFFPC_ITS ---
Vital Signs 09/26/22 10:34 Height 5 ft 6 in BP 108/62 Blood Pressure Location Lt brachial Position Sitting Pulse 67 Pulse Source Pulse Oximeter Temp Source Skin Pulse Oximetry (%) 98 Oxygen Delivery Method Room Air Intake [place] [facility] [place], swollen tongue Intake Note: Patient is here to follow-up after a visit the emergency department [place] [facility] [place]22 [employer] Testing Required: No Allergies amoxicillin [Amoxicillin] Allergy (Intermediate, Verified 03/07/23 12:35) SWELLING, rash Sulfa (Sulfonamide Antibiotics) Allergy (Intermediate, Verified 03/07/23 12:35) itching & bruising codeine [CODEINE] Allergy (Unknown, Verified 03/07/23 12:35) RASH dicyclomine Allergy (Unknown, Verified 03/07/23 12:35) Unknown lidocaine [LIDOCAINE] Allergy (Unknown, Verified 03/07/23 12:35) UNKNOWN lithium [LITHIUM] Adverse Reaction (Severe, Verified 03/07/23 12:35) NEPHROGENIC DIABETES INSIPIDUS meclizine [Meclizine] Adverse Reaction (Intermediate, Verified 03/07/23 12:35) INCREASES DIZZINESS simvastatin [SIMVASTATIN] Adverse Reaction (Intermediate, Verified 03/07/23 12:35) MYALGIAS metronidazole [METRONIDAZOLE] Adverse Reaction (Mild, Verified 03/07/23 12:35) FLU LIKE SYMPTOMS acyclovir Adverse Reaction (Unknown, Verified 03/07/23 12:35) Unknown dulaglutide [From Trulicity] Adverse Reaction (Unknown, Verified 03/07/23 12:35) dizziness, tongue swollen semaglutide [From Ozempic] Adverse Reaction (Unknown, Verified 03/07/23 12:35) Dizziness, problems remembering Medication List - Last Reconciled 03/08/23 by Brown Dickson MD alcohol swabs (Alcohol Prep Pads) 0 pad topical DIRECTED apixaban (Eliquis) 5 mg PO BID ascorbic acid (vitamin C) (Vitamin C) 500 mg PO DAILY atorvastatin 40 mg PO DAILY blood sugar diagnostic (CylexTouch Verio test strips) 1 strip miscellaneous TID buspirone 5 mg PO BID cholecalciferol (vitamin D3) (Vitamin D3) 25 mcg PO DAILY divalproex ER 500 mg Q AM and 1000 mg Q HS -- SHOULD BE PRESCRIBED AND REFILLED BY PSYCHIATRY ferrous fumarate (Ferrocite) 324 mg PO DAILY gabapentin 100 mg PO TID 30 days insulin glargine (Lantus Solostar U-100 Insulin) 24 units (0.24 mL) subcut .evening lancets (Sweetgreen Plus Lancet) 3 times a day; lancing device with lancets (Sweetgreen Lancing Device kit) As directed levothyroxine 100 mcg PO DAILY lorazepam 1 mg PO BEDTIME PRN metformin ER 500 mg PO BID metoprolol succinate ER 25 mg PO DAILY nystatin 1 appl topical BID nystatin 1 mL buccal BID PRN 30 days oxybutynin chloride 5 mg PO BID pantoprazole 40 mg PO DAILY pen needle, diabetic (BD Flory 2nd Gen Pen Needle) As directed pen needle, diabetic (Easy Comfort Pen [place]) As directed injects 4 X/sday perphenazine 4 mg QAM and 8 mg QHS -- SHOULD BE PRESCRIBED AND REFILLED BY PSYCHIATRY risperidone 1.5 mg PO BID Tobacco use date assessed: 09/26/22 Fall risk assessment: No Falls in past year Last assessed Fall Risk: 09/26/22 HPI C 09/12/22, swollen tongue HPI Details Patient comes in today for her HDF follow up visit She went to the ER a couple of weeks ago for on and off swelling of her tongue for the past few days Patient suspects her symptoms may be due her Trulicity that is the only new medication that she has started taking a few weeks ago States that she has not eaten or drank anything unusual lately and has no history of recent travel Workups done in the ER all came back negative She was given a prescription for some oral prednisone to take for a few days to help treat her symptoms and was instructed to follow-up with her PCP FLACO Patient states that she feels okay at present and has not had any recurrence of tongue swelling since her ER visit a couple of weeks ago She denies any headaches or dizziness; denies any fever, sore throat or any cough/cold symptoms lately Denies any chest pains, no shortness of breath No nausea / vomiting, no abdominal pain No change in bowel habits noted [facility] Medical History Vaginal pain Gait instability PAF (paroxysmal atrial fibrillation) Hypertension Intertrigo Obesity (BMI 30-39.9) Bipolar disorder Anemia Allergic rhinitis Acquired hypothyroidism Pure hypercholesterolemia Diabetes mellitus GERD without esophagitis Pain of left lower extremity High bilirubin Hx of strabismus Hx of diabetes insipidus History of vitamin D deficiency Surgical History Hx of colonoscopy History of eye surgery History of left breast biopsy Hx of dilation and curettage Hx of cataract surgery (~07/2017) Family History Father History of cerebral hemorrhage Mother History of cerebral hemorrhage Sister Breast cancer Social History Household Members: Spouse Housing: Apartment Do you presently have visiting nurse or other home services: Yes Alcohol intake: never Patient Tobacco Use Status: Former Tobacco user Quit Date: 8yrs ago Years Smoked: 20 e-Cigarette/Vaping Use: Never Used Second Hand Smoke Exposure: Yes Advance Directives Date on File: 08/24/20 service: No Current occupational status: retired Cognitive needs: Yes (wheelchair) Hearing needs: No Vision needs: Yes (reading glasses) Questionnaire Thrive Questionnaire Date Thrive assessed: 07/10/22 AUDIT C Alcohol Use Questionnaire (AUDIT-C) 1. How often do you have a drink containing alcohol?: Never 3. How often do you have six or more drinks on one occasion?: Never Total Score: 0 Score Reviewed/Action Taken: Yes SHANTA-7 AMB Questionnaire SHANAT-7 Date SHANTA - 7 assessed: 07/10/22 Source: Developed by Drs. Sean Hugo, Kathleen Lagunas, Oumar Boyd and colleagues, with an educational talha from [employer]. Review of Systems Const Denies chills, Denies fatigue, Denies fever(s) and Denies headache(s) ENT Denies dysphagia, Denies dizziness, Denies otalgia, Denies headache(s), Denies neck pain, Denies odynophagia, Denies sore throat and Denies tongue swelling (no recurrence) Card Denies chest pain, Denies palpitations and Denies dyspnea Resp Denies cough, Denies dyspnea and Denies wheezing GI Denies abdominal pain, Reports constipation (on and off - better controlled lately), Denies dysphagia, Denies heartburn, Reports diarrhea (on and off), Denies nausea, Denies odynophagia and Denies vomiting Denies difficulty voiding, Denies nocturia and Denies dysuria Musc Reports abnormal gait (unsteady - uses a walker), Denies back pain, Denies arthralgias and Denies neck pain Neuro Reports abnormal gait (unsteady - uses a walker), Denies dizziness and Denies headache(s) Psych Denies anxiety Endo Denies fatigue and Denies palpitations Jt/Lymph Denies easy bruising Aller/Immun Denies tongue swelling (no recurrence) and Denies wheezing Physical exam (Primary Care) Vital Signs: Last Vital Signs Pulse 67 09/26/22 10:34 BP 108/62 09/26/22 10:34 Pulse Ox 98 09/26/22 10:34 Oxygen Delivery Method Room Air 09/26/22 10:34 Tobacco/Smoking Status: Tobacco use Status Tobacco use date assessed 09/26/22 09/26/22 10:35 Patient Tobacco Use Status Former Tobacco user 09/26/22 10:35 e-Cigarette/Vaping Use Never Used 09/26/22 10:35 Thrive Assessment: Date of Thrive Assessment Date Thrive assessed 07/10/22 09/26/22 10:35 Const General: no acute distress and alert HENMT Ears: TM's normal bilaterally and EAC's normal Mouth: tongue normal Throat: Yes posterior oropharynx normal and Yes tonsils normal (no TP congestion noted) Neck Neck: Yes no lymphadenopathy and Yes supple Resp Auscultation: clear to auscultation bilaterally, no rales and no wheezes Cardio Rate: regular rate Rhythm: regular rhythm Heart sounds: no murmurs GI Palpation (GI): Soft to palpation and nontender Auscultation: normal bowel sounds Extrem General: Yes no clubbing, cyanosis or edema Assessment and Plan Assessment & Plan (1) Tongue swelling: Code(s): R22.0 - Localized swelling, mass and lump, head Plan: Most likely idiopathic Work ups done in the ER a couple of weeks ago all came back negative Have also advised patient that it is unlikely that her tongue swelling was from Trulicity as she has been on the medication for over 5-6 weeks now but patient insisted that she no longer wants to continue on Trulicity due to her concerns about her tongue swelling and would like to have this changed to another medication Will switch her from Trulicity to Ozempic, per her request (2) Diabetes mellitus: Code(s): E11.9 - Type 2 diabetes mellitus without complications Qualifiers: Diabetes mellitus type: type 2 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 mellitus media production support manager insulin use: unspecified fdc insulin use status Diabetes mellitus complication status: without complication Qualified Code(s): E11.9 - Type 2 diabetes mellitus without complications Plan: HgbA1c was at 8.1% when last checked on 05/28/2022; was previously at 10.8% - goal is <7.0% Reinforced diabetic diet Continue Metformin ER 500 mg 1 tablet BID and Lantus Solostar 24 units Q HS Per her request, she will be switched from her Trulicity 1.5 mg SQ once a week to Ozempic 0.25 mg SQ Q week Follow up with endocrinology as scheduled (3) Pure hypercholesterolemia: Code(s): E78.00 - Pure hypercholesterolemia, unspecified Plan: Reinforced low cholesterol diet Continue Atorvastatin 40 mg once a day Will recheck her labs in a couple of months as scheduled for follow-up (4) Paroxysmal atrial fibrillation: Code(s): I48.0 - Paroxysmal atrial fibrillation Plan: Is currently in sinus rhythm Continue Metoprolol ER 25 mg QD Continue Eliquis 5 mg BID for thromboembolism prophylaxis Was seen by cardiology for follow up in April 2022 but advised that if she continues to experience recurrent episodes of sudden onset of dizziness, weakness and/or chest pain/discomfort, she may be experiencing runs of atrial fibrillation that are triggering these symptoms and she may need to reach out to cardiology FLACO to see if she would benefit from Holter monitoring for further evaluation (5) Acquired hypothyroidism: Code(s): E03.9 - Hypothyroidism, unspecified Plan: Continue Levothyroxine 100 mcg QD Will continue to monitor her TFTs regularly (6) GERD without esophagitis: Code(s): K21.9 - Gastro-esophageal reflux disease without esophagitis Plan: Dietary restrictions reinforced Continue Pantoprazole 40 mg QD (7) Allergic rhinitis: Code(s): J30.9 - Allergic rhinitis, unspecified Qualifiers: Allergic rhinitis trigger: unspecified Allergic rhinitis seasonality: unspecified Qualified Code(s): J30.9 - Allergic rhinitis, unspecified Plan: Continue Loratadine 10 mg QD PRN (8) Anemia: Code(s): D64.9 - Anemia, unspecified Qualifiers: Anemia type: unspecified type Qualified Code(s): D64.9 - Anemia, unspecified Plan: Continue Ferrous fumarate 325 mg QD Will continue to monitor her CBC regularly (9) Gait instability: Code(s): R26.81 - Unsteadiness on feet Plan: Is currently ambulating well with a walker Is currently still receiving home physical therapy (10) Bipolar disorder: Code(s): F31.9 - Bipolar disorder, unspecified Qualifiers: Active/Remission status: currently active Current bipolar episode type: mixed Current episode severity: unspecified Qualified Code(s): F31.60 - Bipolar disorder, current episode mixed, unspecified Plan: Continue Perphenazine 4 mg 1 tablet daily in AM and 2 tablets daily at bedtime, Risperidone 1 mg twice a day, Lorazepam 1 mg once a day at bedtime as needed and Divalproex ER 500 mg 1 tablet in AM and 2 tablets at bedtime Follow up with psychiatry as scheduled Reminded [facility] staff that her psychiatric prescriptions should be managed and refilled by Psychiatry and not by os; have advised them to reach out to [facility] pharmacy and emphasized this to them as they keep sending prescription refill request for her psychiatric medications to us repeatedly in the past (11) Obesity (BMI 30-39.9): Code(s): E66.9 - Obesity, unspecified Plan: Reinforced diet/exercise as tolerated/lose weight Plan Follow up as scheduled in November 2022 Medications: New semaglutide (Ozempic) for 4 weeks 0.25 mg (0.368 mL) subcut QWEEK 1.6 mL 1RF 4 weeks Discontinued dulaglutide Discontinued Reason: Doctor's Order 1.5 mg (0.5 mL) subcut QWEEK 2 mL 5RF Coding Level of Care Code Est Pt Level 3 (42672) Diagnoses Tongue swelling R22.0 Type 2 diabetes mellitus without complication, unspecified whether media production support manager insulin use E11.9 Diabetes mellitus type: type 2 Diabetes mellitus media production support manager insulin use: unspecified media production support manager insulin use status Diabetes mellitus complication status: without complication Pure hypercholesterolemia E78.00 Paroxysmal atrial fibrillation I48.0 Acquired hypothyroidism E03.9 GERD without esophagitis K21.9 Allergic rhinitis, unspecified seasonality, unspecified trigger J30.9 Allergic rhinitis trigger: unspecified Allergic rhinitis seasonality: unspecified Anemia, unspecified type D64.9 Anemia type: unspecified type Gait instability R26.81 Bipolar affective disorder, current episode mixed, current episode severity unspecified F31.60 Active/Remission status: currently active Current bipolar episode type: mixed Current episode severity: unspecified Obesity (BMI 30-39.9) E66.9
== END 2022-09-26 11:47 | disposition home or self-care (01) ==
LOC: HO.HMGH 10:05
PROVIDERS: PCP Internal Medicine; Visit Provider Internal Medicine
DX: E11.9 Type 2 diabetes mellitus without complications (principal); I48.0 Paroxysmal atrial fibrillation; E03.9 Hypothyroidism, unspecified; K21.9 Gastro-esophageal reflux disease without esophagitis; F31.60 Bipolar disorder, current episode mixed, unspecified; R22.0 Localized swelling, mass and lump, head; E66.9 Obesity, unspecified; E78.00 Pure hypercholesterolemia, unspecified; J30.9 Allergic rhinitis, unspecified; D64.9 Anemia, unspecified; R26.81 Unsteadiness on feet
CPT/HCPCS: 99213

== ENCOUNTER → 2022-11-14 13:03 | Outpatient (BNVA) | payer MEDICARE, SELFPAY | PROVIDERS: PCP Internal Medicine; Visit Provider Internal Medicine Endocrinology, Diabetes & Metabolism | DX: E11.40 Type 2 diabetes mellitus with diabetic neuropathy, unspecified (principal); Z79.4 Long term (current) use of insulin | CPT/HCPCS: 82947; 99212 ==

== ENCOUNTER 2022-11-23 05:49 | Emergency (ER) | payer MEDICARE, SELFPAY ==
--- NOTE | ~2022-11-23 | CT_ITS ---
CT ANGIOGRAM NECK WITH CONTRAST CT ANGIOGRAM BRAIN WITH CONTRAST CLINICAL INFORMATION: Intermittent motor loss left leg/arm. COMPARISON: None available. TECHNIQUE: Test bolus sequences followed by intravenous administration 70 mL of Omnipaque 350. Helical imaging was performed in the axial plane from the thoracic inlet to the skull vertex. Delayed postcontrast imaging of the head was also performed. The data was processed at the cat scan technologist workstation for generation of MIP sequences. Angled MIPs and volume rendered reformatted images were also generated at an offline 3D workstation under concurrent supervision. Stenoses are assessed in accordance with NASCET criteria unless otherwise indicated. This CT examination was performed using dose optimization techniques as appropriate, variously including the following: *Automated exposure control *Adjustment of mA and/or kV according to patient size (this includes techniques or standardized protocols for targeted exams where dose is matched to indication/reason for exam; i.e. extremities or head) *Use of iterative reconstruction technique FINDINGS: BRAIN: There is global cerebral volume loss and there is mild to moderate chronic microangiopathy. Empty sella. [There is no intracranial hemorrhage, hydrocephalus, extra-axial surface collection, midline shift, or other herniation pattern. Baum to white matter differentiation is diffusely maintained without evidence of an evolved acute territorial infarct. The basilar cisterns are preserved. No significant soft tissue abnormality. No acute osseous abnormality. The paranasal sinuses and the mastoid air cells are well aerated.] CERVICAL SOFT TISSUES AND LUNG APICES: Indeterminate 1 cm enhancing nodule along the anterior margin of the right palatine tonsillar pillar that should be correlated with direct visual inspection or PET. Imaged upper lungs are clear. There is multilevel cervical spondylosis. NECK CTA: [There is a classic 3 vessel configuration of the aortic arch. Proximal arch vessels are non-stenotic. The vertebral arteries are codominant. No significant ostial stenosis is visualized on either side. Both vertebral arteries are widely patent throughout their extracranial cervical course. Atherosclerotic calcification involving the left greater then right carotid bifurcation without significant stenosis. BRAIN CTA: [There is normal opacification of major intracranial arteries. No focal flow-limiting stenosis nor discrete proximal large artery occlusion. No aneurysm. Timing of the contrast bolus allows assessment of the major dural venous sinuses, which all opacify normally] CT/CT angio head neck IMPRESSION: - No acute intracranial findings. There is global cerebral volume loss and there is mild to moderate chronic microangiopathy. Empty sella. - No significant arterial stenoses and no acute arterial occlusions within the head or neck. - Indeterminate 1 cm enhancing nodule along the anterior margin of the right palatine tonsillar pillar that should be correlated with direct visual inspection or PET.
[2022-11-23 05:51] VITALS: BP 118/78; BP 160/53; PULSE 59; PULSE 62; RESP 18; TEMP 36.6; O2SAT 94; O2SAT 98; BMI 32.0
--- NOTE | 2022-11-23 06:09 | ECG_ITS ---
Test Reason : WEAKNESS Blood Pressure : / mmHG Vent. Rate : 058 BPM Atrial Rate : 058 BPM P-R Int : 200 ms QRS Dur : 078 ms QT Int : 424 ms P-R-T Axes : 047 001 -17 degrees QTc Int : 416 ms Sinus bradycardia Nonspecific ST and T wave abnormality Abnormal ECG When compared with ECG of 04-AUG-2022 00:30, No significant change was found Referred By: Zaria Jorge Electronically Signed By:Hadley Aguilera
--- NOTE | 2022-11-23 06:22 | ED.NEUROSD ---
HPI - Neuro Symptoms/Deficit General Chief Complaint: Weakness Stated Complaint: facial tingling Time Seen by Provider: 11/23/22 06:01 Source: patient Mode of arrival: EMS Limitations: no limitations History of Present Illness HPI Narrative: Patient comes to the emergency room complaining of loss of motor function in the left lower extremity, numbness and tingling on the left leg and arm and left side of the face. Patient states that approximately 8 hours ago, patient got out of bed to go to the bathroom, patient noticed that her left leg was not responding. Patient needed her family's help to get to the bathroom. This lasted for approximately 20 minutes. The patient went to bed. In the morning, patient woke up complaining of ongoing numbness and tingling in the left upper and lower extremity and left side of the face. Patient is on Eliquis for atrial fibrillation, states she is compliant with her meds. Related Data Home Medications Medication Instructions Recorded Confirmed lancing device with lancets kit #1 ea 05/11/20 08/22/22 ([employer]al [employer] Lancing Device kit) buspirone 5 mg tablet 5 mg PO BID anxiety 03/01/22 08/22/22 divalproex 500 mg tablet,extended See Rx Instructions .Route .COMPLEX 03/01/22 08/22/22 release 24 hr lorazepam 1 mg tablet 1 mg PO BEDTIME PRN insomnia 03/01/22 08/22/22 perphenazine 4 mg tablet See Rx Instructions .Route .COMPLEX 03/01/22 08/22/22 risperidone 1 mg tablet 1 mg PO BID 03/01/22 08/22/22 alcohol swabs (Alcohol Prep Pads) 0 pad topical DIRECTED 03/29/22 08/22/22 pen needle, diabetic 32 gauge x #50 ea 04/20/22 07/17/22 5/32 (BD Flory 2nd Gen Pen Needle) Previous Rx's Medication Instructions Recorded lancets 33 gauge #100 ea 05/11/20 lancets 30 gauge (AtticousTouch Delica See Rx Instructions .Route TID for 10/19/20 Plus Lancet) diabetes mellitus #300 caps blood sugar diagnostic (AtticousTouch 1 strip miscellaneous TID for 01/05/22 Verio test strips) diabetes mellitus #300 strips ascorbic acid (vitamin C) 500 mg 500 mg PO DAILY #90 tabs 02/08/22 tablet (Vitamin C) pen needle, diabetic 33 gauge x #100 ea 03/29/22 5/32 (Easy Comfort Pen Henrietta) cholecalciferol (vitamin D3) 25 25 mcg PO DAILY #90 tabs 04/08/22 mcg (1,000 unit) tablet (Vitamin D3) insulin glargine 100 unit/mL (3 24 unit (0.24 mL) subcut .evening 05/15/22 mL) subcutaneous pen (Lantus #15 mL Solostar U-100 Insulin) atorvastatin 40 mg tablet 40 mg PO DAILY #90 tabs 07/18/22 oxybutynin chloride 5 mg tablet 5 mg PO BID #180 tabs 07/18/22 ferrous fumarate 324 mg (106 mg 324 mg PO DAILY #100 tabs 07/30/22 iron) tablet (Ferrocite) apixaban 5 mg tablet (Eliquis) 5 mg PO BID #60 tabs 09/05/22 metformin 500 mg tablet,extended 500 mg PO BID #180 tabs 09/09/22 release 24 hr levothyroxine 100 mcg tablet 100 mcg PO DAILY #90 tabs 09/12/22 metoprolol succinate 25 mg 25 mg PO DAILY #90 tabs 10/17/22 tablet,extended release 24 hr nystatin 100,000 unit/gram topical 1 appl topical BID #15 grams 10/21/22 powder pantoprazole 40 mg tablet,delayed 40 mg PO DAILY #90 tabs 10/21/22 release nystatin 100,000 unit/mL oral 1 ml buccal BID PRN oral thrush 30 11/12/22 suspension days #60 mL gabapentin 100 mg capsule 100 mg PO TID 30 days #90 caps 11/19/22 Allergies Allergy/AdvReac Type Severity Reaction Status Date / Time amoxicillin [Amoxicillin] Allergy Intermediate SWELLING, Verified 11/14/22 13:14 rash Sulfa (Sulfonamide Allergy Intermediate itching & Verified 11/14/22 13:14 Antibiotics) bruising codeine [CODEINE] Allergy Unknown RASH Verified 11/14/22 13:14 dicyclomine Allergy Unknown Unknown Verified 11/14/22 13:14 lidocaine [LIDOCAINE] Allergy Unknown UNKNOWN Verified 11/14/22 13:14 lithium [LITHIUM] AdvReac Severe NEPHROGENIC Verified 11/14/22 13:14 DIABETES INSIPIDUS meclizine [Meclizine] AdvReac Intermediate INCREASES Verified 11/14/22 13:14 DIZZINESS simvastatin [SIMVASTATIN] AdvReac Intermediate MYALGIAS Verified 11/14/22 13:14 metronidazole [METRONIDAZOLE] AdvReac Mild FLU LIKE Verified 11/14/22 13:14 SYMPTOMS acyclovir AdvReac Unknown Unknown Verified 11/14/22 13:14 dulaglutide [From Trulicity] AdvReac Unknown dizziness, Verified 11/14/22 13:14 tongue swollen semaglutide [From Ozempic] AdvReac Unknown Dizziness, Verified 11/14/22 13:14 problems remembering Review of Systems Review of Systems: Constitutional : No Weight loss, No Fever, No Chills, No Night Sweats, No Fatigue, No Malaise ENT/Mouth : No Hearing loss, No Ear Pain, No Nasal Congestion, No Sinus Pain, No Hoarseness, No sore throat, No Rhinorrhea, No Swallowing Difficulty Eyes: No Eye Pain, No Swelling, No Redness, No Foreign Body, No Discharge, No Vision Changes Cardiovascular : No Chest Pain, No SOB, No Dyspnea on Exertion, No Orthopnea, No Edema, No Palpitations Respiratory : No Cough, No Sputum, No Wheezing, No Smoke Exposure, No Dyspnea Gastrointestinal : No Nausea, No Vomiting, No Diarrhea, No Constipation, No abdominal Pain, No Hematochezia, No Melena Genitourinary : no irregular bleeding, No Dysuria, No Urinary Frequency, No Hematuria, No Urinary Incontinence, No Urgency, No Flank Pain, No Urinary Flow Changes, No Hesitancy Musculoskeletal : No joint pain, No Myalgias, No Joint Swelling Skin : No Skin Lesions, No rash Neuro : Complaining of weakness/loss of function of the left leg, ongoing numbness and tingling of the left upper and lower extremity and left side of the face. No Loss of Consciousness, No Dizziness, No Headache Psych : No Anxiety/Panic, No Depression, No SI/HI/AH/VH, No Social Issues, Heme/Lymph: No Bruising, No Bleeding,No Lymphadenopathy Endocrine : No Polyuria, No Polydipsia, No Temperature Intolerance PMFSH Past Medical History Medical History Acquired hypothyroidism Allergic rhinitis Anemia Bipolar disorder Diabetes mellitus Gait instability GERD without esophagitis High bilirubin History of vitamin D deficiency Hx of diabetes insipidus Hx of strabismus Hypertension Intertrigo Obesity (BMI 30-39.9) PAF (paroxysmal atrial fibrillation) Pain of left lower extremity Pure hypercholesterolemia Vaginal pain Surgical History History of eye surgery History of left breast biopsy Hx of cataract surgery (~07/2017) Hx of colonoscopy Hx of dilation and curettage Family History Family History Father History of cerebral hemorrhage Mother History of cerebral hemorrhage Sister Breast cancer Social History Social History Household Members: Spouse Housing: Apartment Do you presently have visiting nurse or other home services: Yes Alcohol intake: never Patient Tobacco Use Status: Former Tobacco user Quit Date: 8yrs ago Years Smoked: 20 Smoked in Last 30 Days: No e-Cigarette/Vaping Use: Never Used Second Hand Smoke Exposure: Yes Use of substances other than those prescribed or required for medical reasons: No Advance Directives: Yes Advance Directives on File: Yes Advance Directives Date on File: 08/24/20 service: No Current occupational status: retired Cognitive needs: Yes (wheelchair) Hearing needs: No Vision needs: Yes (reading glasses) Physical Exam Vital Signs: Vital Signs: Last Vital Signs Temp 97.8 F 11/23/22 05:51 Pulse 59 11/23/22 05:51 Resp 18 11/23/22 05:51 BP 160/53 H 11/23/22 05:51 Pulse Ox 94 11/23/22 05:51 O2 Del Method Room Air 11/23/22 05:51 BMI result Body Mass Index 32.0 Const: Other: Appearance: Alert. Oriented X3. No acute distress. Eyes: Pupils equal, round and reactive to light. ENT: Pharynx normal. Neck: Normal inspection. Neck supple. No lymph nodes noted. No crepitus CVS: Normal heart rate and rhythm. Pulses normal. Normal S1 and S2 Respiratory: No respiratory distress. Breath sounds normal. No Wheezing. No rales Abdomen: Soft and nontender. No rigidity. No distention. Skin: Skin warm and dry. Normal skin color. Normal skin turgor. Extremities: No lower extremity edema. No Lacerations. No Rash Neuro: Oriented X 3. No motor deficit. No sensory deficit. Moving all extremities. No slurred speech. CN 2 through 12 grossly intact Psych: calm, cooperative, normal affect Course Course Course Narrative: -patient's labs and CTA of head and neck pending Medical Decision Making Medical Decision Making MDM Narrative: -patient's NIH score is 0 -patient is not a candidate for tPA, patient is taking Eliquis for atrial fibrillation -at this time, patient is asymptomatic. -from patient's history, she likely had a TIA. -CTA of the head and neck are pending -considered admitting the patient to the hospital for a thorough workup -all of patient's labs and imaging pending -sign-out given to Dr. Ruiz Lab Data 11/23/22 06:27 11/23/22 06:30 Labs: Lab Results 11/23/22 11/23/22 11/23/22 Range/Units 06:27 06:27 06:31 WBC 9.1 (4.8-10.8) X10*3/uL RBC 4.32 (4.20-5.50) X10*6/uL Hgb 13.5 (12.0-16.0) g/dl Hct 42.1 (37.0-47.0) % MCV 97.5 (80.0-98.0) fL MCH 31.3 (27.0-33.0) pg MCHC 32.1 (31.0-35.0) g/dl RDW 13.3 (11.0-16.0) % Plt Count 238 (160-400) X10*3/uL MPV 8.7 L (9.4-12.3) fL Immature Gran % (Auto) 1.4 H (0.0-0.4) % Neut % (Auto) 63.3 (45-73) % Lymph % (Auto) 26.8 (20-40) % Williamson % (Auto) 6.9 (2-11) % Eos % (Auto) 1.4 (0-4) % Baso % (Auto) 0.2 (0-2) % Lymph # (Auto) 2.4 (1.2-4.9) X10*3/uL Williamson # (Auto) 0.6 (0.1-1.2) X10*3/uL Eos # (Auto) 0.1 (0.0-0.4) X10*3/uL Baso # (Auto) 0.0 (0.0-0.2) X10*3/uL Abs Immat Gran (auto) 0.13 H (0.00-0.03) X10*3/uL Absolute Neuts (auto) 5.7 (2.0-8.3) x10*3/uL Absolute Nucleated RBC 0.000 (0.0-0.012) X10*3/uL Nucleated RBC % (auto) 0.0 (0.0-0.2) /100WBC PT 11.1 (10.0-13.1) SEC INR 1.0 (0.9-1.1) Urine Color Yellow Urine Appearance Clear Urine pH 6.5 (5.0-9.0) Ur Specific Welch 1.010 (1.005-1.025) Urine Protein Negative (Neg-Trace) mg/dL Urine Glucose (UA) Negative (Negative) mg/dL Urine Ketones Negative (Negative) mg/dL Urine Blood Negative (Negative) Urine Nitrite Negative (Negative) Ur Leukocyte Esterase Trace H (Negative) Urine RBC 0-2 (0-2) /HPF Urine WBC 0-5 (0-5) /HPF Ur Squamous Epith Cells 11-20 (0-2) /HPF Urine Bacteria 1+ (None Seen) Hyaline Casts 0-2 (0-2) /LPF Urine Opiates Screen (Not Detect) Urine Fentanyl Screen (Not Detect) Ur Barbiturates Screen (Not Detect) Ur Phencyclidine Scrn (Not Detect) Ur Amphetamines Screen (Not Detect) U Benzodiazepines Scrn (Not Detect) Urine Cocaine Screen (Not Detect) U Marijuana (THC) Screen (Not Detect) 11/23/22 Range/Units 06:31 WBC (4.8-10.8) X10*3/uL RBC (4.20-5.50) X10*6/uL Hgb (12.0-16.0) g/dl Hct (37.0-47.0) % MCV (80.0-98.0) fL MCH (27.0-33.0) pg MCHC (31.0-35.0) g/dl RDW (11.0-16.0) % Plt Count (160-400) X10*3/uL MPV (9.4-12.3) fL Immature Gran % (Auto) (0.0-0.4) % Neut % (Auto) (45-73) % Lymph % (Auto) (20-40) % Williamson % (Auto) (2-11) % Eos % (Auto) (0-4) % Baso % (Auto) (0-2) % Lymph # (Auto) (1.2-4.9) X10*3/uL Williamson # (Auto) (0.1-1.2) X10*3/uL Eos # (Auto) (0.0-0.4) X10*3/uL Baso # (Auto) (0.0-0.2) X10*3/uL Abs Immat Gran (auto) (0.00-0.03) X10*3/uL Absolute Neuts (auto) (2.0-8.3) x10*3/uL Absolute Nucleated RBC (0.0-0.012) X10*3/uL Nucleated RBC % (auto) (0.0-0.2) /100WBC PT (10.0-13.1) SEC INR (0.9-1.1) Urine Color Urine Appearance Urine pH (5.0-9.0) Ur Specific Welch (1.005-1.025) Urine Protein (Neg-Trace) mg/dL Urine Glucose (UA) (Negative) mg/dL Urine Ketones (Negative) mg/dL Urine Blood (Negative) Urine Nitrite (Negative) Ur Leukocyte Esterase (Negative) Urine RBC (0-2) /HPF Urine WBC (0-5) /HPF Ur Squamous Epith Cells (0-2) /HPF Urine Bacteria (None Seen) Hyaline Casts (0-2) /LPF Urine Opiates Screen Not Detected (Not Detect) Urine Fentanyl Screen Not Detected (Not Detect) Ur Barbiturates Screen Not Detected (Not Detect) Ur Phencyclidine Scrn Not Detected (Not Detect) Ur Amphetamines Screen Not Detected (Not Detect) U Benzodiazepines Scrn Not Detected (Not Detect) Urine Cocaine Screen Not Detected (Not Detect) U Marijuana (THC) Screen Not Detected (Not Detect) NIH Stroke Scale Internal: Initial- Upon Arrival Level of Consciousness: Alert Level of Consciousness Questions: Answers both questions correctly Level of Consciousness Commands: Performs both tasks correctly Best Gaze: Normal Visual: No visual loss Facial Palsy: Normal Motor Arm (Right): No drift Motor Arm (Left): No drift Motor Leg (Right): No drift Motor Leg (Left): No drift Limb Ataxia: Absent Sensory: Normal Best Language: No aphasia Dysarthia: Normal Extinction and Inattention: No abnormality Score: 0 Critical Care Time Critical Care Time Critical Care Time: Yes Total Critical Care Time: 60 Attestation: I have personally provided critical care time. Time includes review of lab data, radiology results, discussion with consultants, and monitoring for potential decompensation. Intervention performed as documented. Discharge Plan Discharge Clinical Impression: Brain TIA Patient Disposition: Admitted As Inpatient
[2022-11-23 06:35] LABS: MANUAL DIFF FLAG NO
[2022-11-23 06:37] LABS: Basophils Percent Auto 0.2 % (0-2); Eosinophils Absolute Auto 0.1 X10*3/uL (0.0-0.4); Eosinophils Percent Auto 1.4 % (0-4); Hematocrit 42.1 % (37.0-47.0); Hemoglobin 13.5 g/dl (12.0-16.0); Imm Gran Abs Auto 0.13 X10*3/uL (0.00-0.03); Imm Gran Pct Auto 1.4 % (0.0-0.4); Lymphocytes Absolute Auto 2.4 X10*3/uL (1.2-4.9); Lymphocytes Percent Auto 26.8 % (20-40); Mean Corpuscular HGB Conc 32.1 g/dl (31.0-35.0); Mean Corpuscular Hemoglobin 31.3 pg (27.0-33.0); Mean Corpuscular Volume 97.5 fL (80.0-98.0); Mean Platelet Volume 8.7 fL (9.4-12.3); Monocytes Absolute Auto 0.6 X10*3/uL (0.1-1.2); Monocytes Percent Auto 6.9 % (2-11); Neutrophils Absolute Auto 5.7 x10*3/uL (2.0-8.3); Neutrophils Percent Auto 63.3 % (45-73); Platelet Count 238 X10*3/uL (160-400); Red Blood Count 4.32 X10*6/uL (4.20-5.50); Red Cell Distribution Width 13.3 % (11.0-16.0); White Blood Count 9.1 X10*3/uL (4.8-10.8)
[2022-11-23 06:39] LABS: Appearance Urine Clear; Color Urine Yellow; Glucose Urine UA Negative (Negative); Leukocyte Esterase Urine Trace (Negative); Nitrite Urine Negative (Negative); PH 6.5 (5.0-9.0); UMIC TRIGGER UACC YES; Urine Blood Negative (Negative); Urine Ketones Negative (Negative); Urine Protein Negative (Neg-Trace)
[2022-11-23 06:43] LABS: Prothrombin Time 11.1 SEC (10.0-13.1)
[2022-11-23 06:44] LABS: Bacteria Urine 1+ (None Seen); Hyaline Casts Urine 0-2 /LPF (0-2); RBC Urine 0-2 /HPF (0-2); WBC Urine 0-5 /HPF (0-5)
[2022-11-23 06:46] LABS: Amphetamine Screen Urine Not Detected (Not Detect); Barbiturates, Urine Not Detected (Not Detect); Benzodiazepines Screen Urine Not Detected (Not Detect); Cannabinoid Screen Urine Not Detected (Not Detect); Cocaine Screen Urine Not Detected (Not Detect); Fentanyl, urine Not Detected (Not Detect); Opiate Screen Urine Not Detected (Not Detect); Phencyclidine Screen Urine Not Detected (Not Detect)
[2022-11-23 07:06] LABS: Ethanol < 10 mg/dL
[2022-11-23 07:11] LABS: Alanine Aminotransferase 14 U/L (0-31); Albumin Level 3.8 g/dL (3.5-5.0); Alkaline Phosphatase 69 U/L (39-117); Anion Gap 12 (12-20); Aspartate Amino Transferase 12 U/L (5-31); Bilirubin Direct 0.1 mg/dL (0.0-0.5); Bilirubin Total 0.3 mg/dL (0.0-1.0); Blood Urea Nitrogen 17 mg/dL (9-16); Calcium 9.6 mg/dL (8.4-10.2); Carbon Dioxide 30 mmol/L (22-29); Chloride 102 mmol/L (96-108); Creatinine Clr Calc Pharmacy 54.8; Estimated Glomerular Filt Rate 54; Glucose Random 171 mg/dL (60-115); Magnesium 1.9 mg/dL (1.6-2.6); Potassium 4.4 mmol/L (3.3-5.1); Sodium 140 mmol/L (135-145); Total Protein 6.5 g/dL (6.5-8.0)
[2022-11-23 07:11] LABS: Troponin-I High Sensitivity < 2.7 ng/L (<3.5-17.0)
[2022-11-23 07:24] VITALS: BP 166/57; PULSE 62; RESP 14; O2SAT 93
--- NOTE | 2022-11-23 07:55 | PC.NURSE ---
pt a&o x4, pleasant, calm, and cooperative. currently resting on stretcher in no apparent distress with at bedside. pt reports numbness and tingling to left side of face, arm, and leg decreasing but still there. vss. wctm
[2022-11-23] MEDS: iohexoL 350 MG/ML 100 ML INFUS..BTL 70 ML IV (08:44)
[2022-11-23 10:13] VITALS: BP 150/68; PULSE 55; RESP 17; O2SAT 94
== END 2022-11-23 10:48 | disposition home or self-care (01) ==
PROVIDERS: Emergency Provider Emergency Medicine
DX: R53.1 Weakness (principal); I48.91 Unspecified atrial fibrillation; R20.2 Paresthesia of skin; M54.2 Cervicalgia; Z79.01 Long term (current) use of anticoagulants; Z79.899 Other long term (current) drug therapy; Z87.891 Personal history of nicotine dependence
CPT/HCPCS: 36415; 70496; 70498; 80048; 80076; 80307; 81001; 83735; 84484; 85025; 85610; 93005; 99284; 99285; Q9967

== ENCOUNTER 2022-11-26 08:59 | Outpatient (REF) | payer MEDICARE, SELFPAY ==
[2022-11-26 09:22] LABS: MANUAL DIFF FLAG NO
[2022-11-26 10:56] LABS: Basophils Percent Auto 0.3 % (0-2); Eosinophils Absolute Auto 0.1 X10*3/uL (0.0-0.4); Eosinophils Percent Auto 1.3 % (0-4); Hematocrit 42.1 % (37.0-47.0); Hemoglobin 13.3 g/dl (12.0-16.0); Imm Gran Pct Auto 1.3 % (0.0-0.4); Lymphocytes Absolute Auto 2.2 X10*3/uL (1.2-4.9); Lymphocytes Percent Auto 28.3 % (20-40); Mean Corpuscular HGB Conc 31.6 g/dl (31.0-35.0); Mean Corpuscular Hemoglobin 31.1 pg (27.0-33.0); Mean Corpuscular Volume 98.4 fL (80.0-98.0); Monocytes Absolute Auto 0.5 X10*3/uL (0.1-1.2); Monocytes Percent Auto 6.4 % (2-11); Neutrophils Absolute Auto 4.8 x10*3/uL (2.0-8.3); Neutrophils Percent Auto 62.4 % (45-73); Platelet Count 246 X10*3/uL (160-400); Red Blood Count 4.28 X10*6/uL (4.20-5.50); Red Cell Distribution Width 13.6 % (11.0-16.0); White Blood Count 7.6 X10*3/uL (4.8-10.8)
[2022-11-26 11:29] LABS: Estimated Average Glucose 163 mg/dL; Hemoglobin A1c % 7.3 %
[2022-11-26 11:52] LABS: Alanine Aminotransferase 15 U/L (0-31); Alkaline Phosphatase 71 U/L (39-117); Anion Gap 14 (12-20); Aspartate Amino Transferase 12 U/L (5-31); Bilirubin Total 0.4 mg/dL (0.0-1.0); Blood Urea Nitrogen 17 mg/dL (9-16); Calcium 9.6 mg/dL (8.4-10.2); Carbon Dioxide 28 mmol/L (22-29); Chloride 104 mmol/L (96-108); Cholesterol 128 mg/dL; Estimated Glomerular Filt Rate 53; Glucose Fasting 159 mg/dL (60-99); HDL Cholesterol 44 mg/dL; LDL Cholesterol Calculated 61 mg/dl; Potassium 4.8 mmol/L (3.3-5.1); Sodium 141 mmol/L (135-145); Total Protein 6.6 g/dL (6.5-8.0); Triglycerides 116 mg/dL
[2022-11-26 12:08] LABS: Free T4 (Free Thyroxine) 1.05 ng/dL (0.71-1.85); Thyroid Stimulating Hormone 3.79 uIU/mL (0.32-4.0); Vitamin D 25-OH Total 58.9 ng/mL (>30)
[2022-11-27 10:56] LABS: Appearance Urine Clear; Color Urine Yellow; Glucose Urine UA Negative (Negative); Leukocyte Esterase Urine Negative (Negative); Nitrite Urine Negative (Negative); PH 6.5 (5.0-9.0); Specific Gravity - Urine 1.015 (1.005-1.025); Urine Blood Negative (Negative); Urine Ketones Negative (Negative); Urine Protein Negative (Neg-Trace)
== END 2022-11-26 09:00 | disposition home or self-care (01) ==
LOC: HO.LAB 08:59
PROVIDERS: PCP Internal Medicine; Visit Provider Internal Medicine
DX: E11.9 Type 2 diabetes mellitus without complications (principal); E78.00 Pure hypercholesterolemia, unspecified; E03.9 Hypothyroidism, unspecified; I10 Essential (primary) hypertension; E55.9 Vitamin D deficiency, unspecified
CPT/HCPCS: 36415; 80053; 80061; 81003; 82306; 83036; 84439; 84443; 85025

== ENCOUNTER 2023-02-09 08:38 | Outpatient (REF) | payer MEDICARE, SELFPAY ==
[2023-02-09 11:18] LABS: Appearance Urine Clear; Color Urine Yellow; Glucose Urine UA Negative (Negative); Leukocyte Esterase Urine Small (1+) (Negative); Nitrite Urine Negative (Negative); Specific Gravity - Urine <= 1.005 (1.005-1.025); UMIC TRIGGER UACC YES; Urine Blood Negative (Negative); Urine Ketones Negative (Negative); Urine Protein Negative (Neg-Trace)
[2023-02-09 12:08] LABS: Bacteria Urine Trace (None Seen); Hyaline Casts Urine 0-2 /LPF (0-2); RBC Urine 0-2 /HPF (0-2); UACC Culture Trigger YES; WBC Urine 0-5 /HPF (0-5)
== END 2023-02-09 08:39 | disposition home or self-care (01) ==
LOC: HO.LAB 08:38
PROVIDERS: PCP Internal Medicine; Visit Provider Internal Medicine
DX: R30.0 Dysuria (principal)
CPT/HCPCS: 81001; 87086

== ENCOUNTER 2023-02-14 07:58 | Outpatient (REF) | payer MEDICARE, SELFPAY ==
[2023-02-14 08:43] LABS: Ammonia 17 umol/L (13-55)
[2023-02-14 08:55] LABS: Alanine Aminotransferase 14 U/L (0-31); Albumin Level 3.9 g/dL (3.5-5.0); Alkaline Phosphatase 67 U/L (39-117); Anion Gap 13 (12-20); Aspartate Amino Transferase 14 U/L (5-31); Bilirubin Total 0.3 mg/dL (0.0-1.0); Blood Urea Nitrogen 18 mg/dL (9-16); Calcium 9.3 mg/dL (8.4-10.2); Carbon Dioxide 28 mmol/L (22-29); Chloride 103 mmol/L (96-108); Estimated Glomerular Filt Rate 59; Glucose Random 164 mg/dL (60-115); Potassium 4.7 mmol/L (3.3-5.1); Sodium 139 mmol/L (135-145); Total Protein 6.8 g/dL (6.5-8.0)
[2023-02-14 09:10] LABS: Valproate 44.6 mcg/mL (50.0-100.0)
== END 2023-02-14 07:59 | disposition home or self-care (01) ==
LOC: HO.LAB 07:58
PROVIDERS: PCP Internal Medicine; Visit Provider Clinical Nurse Specialist Psychiatric/Mental Health, Adult
DX: Z79.899 Other long term (current) drug therapy (principal)
CPT/HCPCS: 36415; 80053; 80164; 82140

== ENCOUNTER 2023-03-07 11:47 | Outpatient (AMB) | payer MEDICARE, SELFPAY ==
[2023-03-07 12:16] VITALS: BP 118/84; PULSE 57; O2SAT 97; BMI 31.7
--- NOTE | 2023-03-07 12:16 | A.OFFPC_ITS ---
Vital Signs 03/07/23 12:16 Height 5 ft 6 in Weight 196 lb 8 oz BMI 31.7 BP 118/84 Blood Pressure Location Lt brachial Position Sitting Pulse 57 Pulse Source Pulse Oximeter Pulse Oximetry (%) 97 Oxygen Delivery Method Room Air Intake Visit Reasons: 3 month f/u [employer] Iron[employer] Required: No Accompanied by: Self / Same As Patient Allergies amoxicillin [Amoxicillin] Allergy (Intermediate, Verified 03/07/23 12:35) SWELLING, rash Sulfa (Sulfonamide Antibiotics) Allergy (Intermediate, Verified 03/07/23 12:35) itching & bruising codeine [CODEINE] Allergy (Unknown, Verified 03/07/23 12:35) RASH dicyclomine Allergy (Unknown, Verified 03/07/23 12:35) Unknown lidocaine [LIDOCAINE] Allergy (Unknown, Verified 03/07/23 12:35) UNKNOWN lithium [LITHIUM] Adverse Reaction (Severe, Verified 03/07/23 12:35) NEPHROGENIC DIABETES INSIPIDUS meclizine [Meclizine] Adverse Reaction (Intermediate, Verified 03/07/23 12:35) INCREASES DIZZINESS simvastatin [SIMVASTATIN] Adverse Reaction (Intermediate, Verified 03/07/23 12:35) MYALGIAS metronidazole [METRONIDAZOLE] Adverse Reaction (Mild, Verified 03/07/23 12:35) FLU LIKE SYMPTOMS acyclovir Adverse Reaction (Unknown, Verified 03/07/23 12:35) Unknown dulaglutide [From Trulicity] Adverse Reaction (Unknown, Verified 03/07/23 12:35) dizziness, tongue swollen semaglutide [From Ozempic] Adverse Reaction (Unknown, Verified 03/07/23 12:35) Dizziness, problems remembering Medication List - Last Reconciled 03/07/23 by Brown Dickson MD alcohol swabs (Alcohol Prep Pads) 0 pad topical DIRECTED apixaban (Eliquis) 5 mg PO BID ascorbic acid (vitamin C) (Vitamin C) 500 mg PO DAILY atorvastatin 40 mg PO DAILY blood sugar diagnostic ([employer] Mobile[employer] Verio test strips) 1 strip miscellaneous TID buspirone 5 mg PO BID cholecalciferol (vitamin D3) (Vitamin D3) 25 mcg PO DAILY divalproex ER 500 mg Q AM and 1000 mg Q HS -- SHOULD BE PRESCRIBED AND REFILLED BY PSYCHIATRY ferrous fumarate (Ferrocite) 324 mg PO DAILY gabapentin 100 mg PO TID 30 days insulin glargine (Lantus Solostar U-100 Insulin) 24 units (0.24 mL) subcut .evening lancets ([employer] Plus Lancet) 3 times a day; lancing device with lancets ([employer] Lancing Device kit) As directed levothyroxine 100 mcg PO DAILY lorazepam 1 mg PO BEDTIME PRN metformin ER 500 mg PO BID metoprolol succinate ER 25 mg PO DAILY nystatin 1 appl topical BID nystatin 1 mL buccal BID PRN 30 days oxybutynin chloride 5 mg PO BID pantoprazole 40 mg PO DAILY pen needle, diabetic (BD Flory 2nd Gen Pen Needle) As directed pen needle, diabetic (Easy Comfort Pen Halsey) As directed injects 4 X/sday perphenazine 4 mg QAM and 8 mg QHS -- SHOULD BE PRESCRIBED AND REFILLED BY PSYCHIATRY risperidone 1.5 mg PO BID Tobacco use date assessed: 03/07/23 Fall risk assessment: No Falls in past year Last assessed Fall Risk: 03/07/23 Dental Screening Dental Screen Date: 03/07/23 Did you have a dental visit in the last 12 months?: Yes Did you have a dental problem in the last 6 months where you did not have access to dental care?: No Was dental information given to patient?: Patient has dentist HPI 3 month f/u HPI Details Patient comes in today for her follow up visit She went to the ER a couple of months ago for sudden onset of left-sided numbness and left leg weakness Workups done in the ER, including a head and neck CTA, were negative She has no other pertinent findings or focal neurologic deficits and her symptoms gradually resolved with no further recurrence States that she has continued on her Eliquis indefinitely without any skipped does She was seen by neurology for follow-up last month and was advised to continue on her Eliquis and to continue with risk-factor modification Patient states that she currently feels okay She denies any headaches or dizziness Denies any chest pains, no shortness of breath No nausea /vomiting, no abdominal pain No change in bowel habits noted Has no follow-up labs done recently - labs were last done in November 2022 [facility] Medical History Vaginal pain Gait instability PAF (paroxysmal atrial fibrillation) Hypertension Intertrigo Obesity (BMI 30-39.9) Bipolar disorder Anemia Allergic rhinitis Acquired hypothyroidism Pure hypercholesterolemia Diabetes mellitus GERD without esophagitis Pain of left lower extremity High bilirubin Hx of strabismus Hx of diabetes insipidus History of vitamin D deficiency Surgical History Hx of colonoscopy History of eye surgery History of left breast biopsy Hx of dilation and curettage Hx of cataract surgery (~07/2017) Family History Father History of cerebral hemorrhage Mother History of cerebral hemorrhage Sister Breast cancer Social History Household Members: Spouse Housing: Apartment Do you presently have visiting nurse or other home services: Yes Alcohol intake: never Patient Tobacco Use Status: Former Tobacco user Quit Date: 8yrs ago Years Smoked: 20 e-Cigarette/Vaping Use: Never Used Second Hand Smoke Exposure: Yes Advance Directives Date on File: 08/24/20 service: No Current occupational status: retired Cognitive needs: Yes (wheelchair) Hearing needs: No Vision needs: Yes (reading glasses) Questionnaire PHQ-9 Over the last 2 weeks, how often have you been bothered by any of the following problems? 1. Little interest or pleasure in doing things: not at all 2. Feeling down, depressed, or hopeless: not at all 3. Trouble falling or staying asleep, or sleeping too much: not at all 4. Feeling tired or having little energy: not at all 5. Poor appetite or overeating: not at all 6. Feeling bad about yourself - or that you are a failure or have let yourself or your family down: not at all 7. Trouble concentrating on things, such as reading the newspaper or watching television: not at all 8. Moving or speaking so slowly that other people could have noticed. Or the opposite - being so fidgety or restless that you have been moving around a lot more than usual: not at all 9. Thoughts that you would be better off or of hurting yourself in some way: not at all Total score: 0 Depression Screening Interpretation: Negative [id number] - PHQ-9 Billing: Yes Source: Developed by Drs. Sean Hugo, Oumar Granados and colleagues, with an educational talha from [employer]. Thrive Questionnaire Date Thrive assessed: 03/07/23 I am a: Patient What is your living situation today?: I have a steady place to live Within the past 12 months, did the food you bought not last and you didn't have the money to get more?: Never true Within the past 12 months, did you worry whether your food would run out before you got money to buy more?: Never true Do you have trouble paying for medicines?: No Do you have trouble getting transportation to medical appointments?: No Do you have trouble paying your heating and electricity bill?: No Do you have trouble taking care of your child, family member or friend?: No Do you have trouble with day-to-day activities such as bathing, preparing meals, shopping, managing finances, etc.?: No Are you currently unemployed and looking for a job?: No Are you interested in more education?: No Please select the resources that you would like help with: None Currently or been in a relationship where the following occur: no concerns reported AUDIT C Alcohol Use Questionnaire (AUDIT-C) 1. How often do you have a drink containing alcohol?: Never 3. How often do you have six or more drinks on one occasion?: Never Total Score: 0 Score Reviewed/Action Taken: Yes SHANTA-7 AMB Questionnaire SHANTA-7 Date SHANTA - 7 assessed: 03/07/23 Feeling nervous, anxious, or on edge: 0 = Not at all Not being able to stop or control worryin = Not at all Worrying too much about different things: 0 = Not at all Trouble relaxin = Not at all Being so restless that it is hard to sit still: 0 = Not at all Becoming easily annoyed or irritable: 0 = Not at all Feeling afraid as if something awful might happen: 0 = Not at all Total SHANTA-7 score (0-4 normal; 5-9 mild; 10-14 moderate; 15-21 severe): 0 Source: Developed by Kathleen Drake Kurt Kroenke and colleagues, with an educational talha from [employer]. Review of Systems Const Denies chills, Denies fatigue, Denies fever(s) and Denies headache(s) ENT Denies dysphagia, Denies dizziness, Denies otalgia, Denies headache(s), Denies neck pain, Denies odynophagia and Denies sore throat Card Denies chest pain, Denies palpitations and Denies dyspnea Resp Denies cough, Denies dyspnea and Denies wheezing GI Denies abdominal pain, Reports constipation (on and off - better controlled lately), Denies dysphagia, Denies heartburn, Reports diarrhea (on and off), Denies nausea, Denies odynophagia and Denies vomiting Denies difficulty voiding, Denies nocturia and Denies dysuria Musc Reports abnormal gait (unsteady - uses a walker), Denies back pain, Denies arthralgias and Denies neck pain Neuro Reports abnormal gait (unsteady - uses a walker), Denies dizziness and Denies headache(s) Psych Denies anxiety Endo Denies fatigue and Denies palpitations Jt/Lymph Denies easy bruising Aller/Immun Denies wheezing Physical exam (Primary Care) Vital Signs: Last Vital Signs Pulse 57 03/07/23 12:16 BP 118/84 03/07/23 12:16 Pulse Ox 97 03/07/23 12:16 Oxygen Delivery Method Room Air 03/07/23 12:16 BMI result Body Mass Index 31.7 Tobacco/Smoking Status: Tobacco use Status Tobacco use date assessed 03/07/23 03/07/23 12:22 Patient Tobacco Use Status Former Tobacco user 03/07/23 12:22 e-Cigarette/Vaping Use Never Used 03/07/23 12:22 PHQ-9: PHQ-9 Score PHQ-9: Total score 0 03/07/23 12:41 Depression Screening Interpretation: Negative Thrive Assessment: Date of Thrive Assessment Date Thrive assessed 03/07/23 03/07/23 12:22 Currently or been in a relationship where the following occur: no concerns reported Const General: no acute distress and alert HENMT Ears: TM's normal bilaterally and EAC's normal Throat: Yes posterior oropharynx normal and Yes tonsils normal (no TP congestion noted) Neck Neck: Yes no lymphadenopathy and Yes supple Resp Auscultation: clear to auscultation bilaterally, no rales and no wheezes Cardio Rate: regular rate Rhythm: regular rhythm Heart sounds: no murmurs GI Palpation (GI): Soft to palpation and nontender Auscultation: normal bowel sounds Extrem General: Yes no clubbing, cyanosis or edema Results Reviewed Results Reviewed: Laboratory Tests 11/26/22 11/26/22 11/26/22 09:21 09:21 09:21 WBC 7.6 Hgb 13.3 Hct 42.1 Plt Count 246 Sodium Potassium Creatinine Estimated GFR Random Glucose Hemoglobin A1c % 7.3 Calcium AST ALT Triglycerides 116 Cholesterol 128 LDL Cholesterol, Calc 61 HDL Cholesterol 44 25-OH Vitamin D Total TSH Ur Specific [place] Urine Protein Urine Glucose (UA) Urine Blood 11/26/22 02/09/23 02/09/23 09:21 10:30 10:30 WBC Hgb Hct Plt Count Sodium Potassium Creatinine Estimated GFR Random Glucose Hemoglobin A1c % Calcium AST ALT Triglycerides Cholesterol LDL Cholesterol, Calc HDL Cholesterol 25-OH Vitamin D Total 58.9 TSH 3.79 Ur Specific [place] <= 1.005 Urine Protein Negative Urine Glucose (UA) Negative Urine Blood Negative 02/14/23 02/14/23 08:29 08:29 WBC Hgb Hct Plt Count Sodium 139 Potassium 4.7 Creatinine 0.93 Estimated GFR 59 Random Glucose 164 H Hemoglobin A1c % Calcium 9.3 AST 14 ALT 14 Triglycerides Cholesterol LDL Cholesterol, Calc HDL Cholesterol 25-OH Vitamin D Total TSH Ur Specific [place] Urine Protein Urine Glucose (UA) Urine Blood Assessment and Plan Assessment & Plan (1) Brain TIA: Code(s): G45.9 - Transient cerebral ischemic attack, unspecified Plan: Occurred back in November 2022 and patient presented to the ER with sudden onset of left-sided weakness and left leg numbness Her symptoms gradually resolved while she was being evaluated in the ER CTA of the head and neck done came back negative She was seen by Neurology for follow-up last month and instructed to continue on Eliquis 5 mg BID as well as continuing risk factor modification (2) Diabetes mellitus: Code(s): E11.9 - Type 2 diabetes mellitus without complications Qualifiers: Diabetes mellitus type: type 2 Diabetes mellitus detention insulin use: unspecified detention insulin use status Diabetes mellitus complication status: without complication Qualified Code(s): E11.9 - Type 2 diabetes mellitus without complications Plan: HgbA1c was at 7.3% when last checked in November 2022; was previously at 8.1% - goal is <7.0% Reinforced diabetic diet Continue Metformin ER 500 mg 1 tablet BID, Lantus Solostar 24 units Q HS and Trulicity 1.5 mg SQ once a week Follow up with endocrinology as scheduled (3) Pure hypercholesterolemia: Code(s): E78.00 - Pure hypercholesterolemia, unspecified Plan: Results of her labs done back in November 2022 reviewed and discussed with patient Reinforced low cholesterol diet Continue Atorvastatin 40 mg QD Will recheck her labs and fasting lipids in 3 months for follow-up (4) Paroxysmal atrial fibrillation: Code(s): I48.0 - Paroxysmal atrial fibrillation Plan: Is currently in sinus rhythm Continue Metoprolol ER 25 mg QD Continue Eliquis 5 mg BID for thromboembolism prophylaxis Follow up with cardiology as scheduled (5) Acquired hypothyroidism: Code(s): E03.9 - Hypothyroidism, unspecified Plan: Continue Levothyroxine 100 mcg QD Will continue to monitor her TFTs regularly (6) GERD without esophagitis: Code(s): K21.9 - Gastro-esophageal reflux disease without esophagitis Plan: Dietary restrictions reinforced Continue Pantoprazole 40 mg QD (7) Allergic rhinitis: Code(s): J30.9 - Allergic rhinitis, unspecified Qualifiers: Allergic rhinitis trigger: unspecified Allergic rhinitis seasonality: unspecified Qualified Code(s): J30.9 - Allergic rhinitis, unspecified Plan: Continue Loratadine 10 mg QD PRN (8) Anemia: Code(s): D64.9 - Anemia, unspecified Qualifiers: Anemia type: unspecified type Qualified Code(s): D64.9 - Anemia, unspecified Plan: Her anemia was corrected/resolved on her labs done back in November 2022 Continue Ferrous fumarate 325 mg QD Will continue to monitor her CBC regularly (9) Gait instability: Code(s): R26.81 - Unsteadiness on feet Plan: Is currently ambulating well with a walker States that her gait has improved somewhat with physical therapy and we can refer her to PT again as needed (10) Bipolar disorder: Code(s): F31.9 - Bipolar disorder, unspecified Qualifiers: Active/Remission status: currently active Current bipolar episode type: mixed Current episode severity: unspecified Qualified Code(s): F31.60 - Bipolar disorder, current episode mixed, unspecified Plan: Continue Perphenazine 4 mg 1 tablet daily in AM and 2 tablets daily at bedtime, Risperidone 1.5 mg twice a day, Lorazepam 1 mg once a day at bedtime as needed and Divalproex ER 500 mg 1 tablet in AM and 2 tablets at bedtime Follow up with psychiatry as scheduled (11) Obesity (BMI 30-39.9): Code(s): E66.9 - Obesity, unspecified Plan: Reinforced diet; exercise and weight loss are unrealistic given patient's gait instability and multiple comorbidities Plan Follow up in 3 months Orders: Orders Complete Blood Count Auto Diff 3 Months I10 - Essential (primary) hypertension Vitamin D 25-OH Total 3 Months E55.9 - Vitamin D deficiency, unspecified Hemoglobin A1c 3 Months E11.9 - Type 2 diabetes mellitus without complications Lipid Panel 3 Months E78.00 - Pure hypercholesterolemia, unspecified Comprehensive Sunspot. 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: unspecified detention insulin use status Diabetes mellitus complication status: without complication Pure hypercholesterolemia E78.00 Paroxysmal atrial fibrillation I48.0 Acquired hypothyroidism E03.9 GERD without esophagitis K21.9 Allergic rhinitis, unspecified seasonality, unspecified trigger J30.9 Allergic rhinitis trigger: unspecified Allergic rhinitis seasonality: unspecified Anemia, unspecified type D64.9 Anemia type: unspecified type Gait instability R26.81 Bipolar affective disorder, current episode mixed, current episode severity un specified F31.60 Active/Remission status: currently active Current bipolar episode type: mixed Current episode severity: unspecified Obesity (BMI 30-39.9) E66.9
== END 2023-03-07 12:45 | disposition home or self-care (01) ==
PROVIDERS: PCP Internal Medicine; Visit Provider Internal Medicine
DX: E11.9 Type 2 diabetes mellitus without complications (principal); E03.9 Hypothyroidism, unspecified; K21.9 Gastro-esophageal reflux disease without esophagitis; F31.60 Bipolar disorder, current episode mixed, unspecified; I48.0 Paroxysmal atrial fibrillation; G45.9 Transient cerebral ischemic attack, unspecified; E78.00 Pure hypercholesterolemia, unspecified; J30.9 Allergic rhinitis, unspecified; D64.9 Anemia, unspecified; R26.81 Unsteadiness on feet; E66.9 Obesity, unspecified
CPT/HCPCS: 99214

== ENCOUNTER 2023-03-27 12:49 | Emergency (ER) | payer MEDICARE, SELFPAY ==
--- NOTE | 2023-03-27 12:52 | ECG_ITS ---
Test Reason : chest pain Blood Pressure : / mmHG Vent. Rate : 061 BPM Atrial Rate : 061 BPM P-R Int : 194 ms QRS Dur : 080 ms QT Int : 418 ms P-R-T Axes : 046 -05 002 degrees QTc Int : 420 ms Normal sinus rhythm Nonspecific T wave abnormality Abnormal ECG When compared with ECG of 23-NOV-2022 06:32, T wave amplitude has decreased in Lateral leads Referred By: Guicho Avina Electronically Signed By:MINNIE MONTALVO MD
--- NOTE | 2023-03-27 12:57 | ECG_ITS ---
Test Reason : CHEST PAIN Blood Pressure : / mmHG Vent. Rate : 060 BPM Atrial Rate : 060 BPM P-R Int : 186 ms QRS Dur : 072 ms QT Int : 430 ms P-R-T Axes : 100 018 017 degrees QTc Int : 430 ms Normal sinus rhythm Nonspecific T wave abnormality Abnormal ECG When compared with ECG of 27-MAR-2023 13:08, T wave amplitude has increased in Lateral leads Referred By: Guicho Avina Electronically Signed By:MINNIE MONTALVO MD
[2023-03-27 13:04] VITALS: BP 141/76; BP 181/81; PULSE 63; PULSE 65; RESP 15; TEMP 36.9; O2SAT 93; O2SAT 97; BMI 34.2
--- NOTE | 2023-03-27 13:05 | ED_ITS ---
HPI - General Adult General Chief complaint: Psychiatric Symptoms Stated complaint: CP,FEELS ANXIOUS, FROM [facility] PER EMS Time Seen by Provider: 03/27/23 12:52 Source: patient and EMS Mode of arrival: ambulatory Limitations: no limitations and other (Patient cooperation ) History of Present Illness HPI narrative: 77 y o female hx GERD, Intertrigo, hyperlipidemia, DM, Bipolar presenting via EMS from [facility] for evaluation of chest pain. Patient states she was at the psychiatrist's office when she began having chest pain, describing substernal nonradiating chest pain with associated shortness of breath and anxiety. EMS reports patient's symptoms resolved once leaving the site they picked the patient up from, patient also states symptoms resolved prior to arrival here in ED. EMS also reports bizzare affect and nonmedcompliance. Patient denying any current chest pain, shortness of breath, abdominal pain, dizziness, nausea, vomiting, numbness and tingling. Denying SI, HI. Related Data Home Medications Medication Instructions Recorded Confirmed lancing device with lancets kit #1 ea 05/11/20 03/08/23 (AdmitOne Security Lancing Device kit) buspirone 5 mg tablet 5 mg PO BID anxiety 03/01/22 03/27/23 divalproex 500 mg tablet,extended 500 mg PO BID 03/01/22 03/27/23 release 24 hr perphenazine 4 mg tablet 4 mg PO BID 03/01/22 03/27/23 pen needle, diabetic 32 gauge x #50 ea 04/20/22 03/08/2332 (BD Flory 2nd Gen Pen Needle) risperidone 1 mg tablet 1.5 mg PO BID 03/07/23 03/27/23 atorvastatin 40 mg tablet 40 mg PO BEDTIME 03/27/23 03/27/23 fluticasone propionate 50 1 spray intranasal DAILY 03/27/23 03/27/23 mcg/actuation nasal spray,suspension levothyroxine 100 mcg tablet 100 mcg PO DAILY@0600 03/27/23 03/27/23 loratadine 10 mg tablet 10 mg PO DAILY PRN ALLERGIES 03/27/23 03/27/23 meclizine 25 mg tablet 25 mg PO DAILY PRN MOTION 03/27/23 03/27/23 SICKNESS/NAUSEA pantoprazole 40 mg tablet,delayed 40 mg PO DAILY@0630 03/27/23 03/27/23 release Previous Rx's Medication Instructions Recorded pen needle, diabetic 33 gauge x #100 ea 03/29/22 (Easy Comfort Pen [employer]) cholecalciferol (vitamin D3) 25 25 mcg PO DAILY #90 tabs 04/08/22 mcg (1,000 unit) tablet (Vitamin D3) metoprolol succinate 25 mg 25 mg PO DAILY #90 tabs 10/17/22 tablet,extended release 24 hr oxybutynin chloride 5 mg tablet 5 mg PO BID #180 tabs 01/18/23 apixaban 5 mg tablet (Eliquis) 5 mg PO BID #60 tabs 03/14/23 ascorbic acid (vitamin C) 500 mg 500 mg PO DAILY #90 tabs 03/14/23 tablet (Vitamin C) ferrous fumarate 324 mg (106 mg 324 mg PO DAILY #100 tabs 03/19/23 iron) tablet (Ferrocite) metformin 500 mg tablet,extended 500 mg PO BID #180 tabs 03/19/23 release 24 hr nystatin 100,000 unit/mL oral 1 ml buccal BID PRN oral thrush 30 03/19/23 suspension days #60 mL Allergies Allergy/AdvReac Type Severity Reaction Status Date / Time amoxicillin [Amoxicillin] Allergy Intermediate SWELLING, Verified 03/07/23 12:35 rash Sulfa (Sulfonamide Allergy Intermediate itching & Verified 03/07/23 12:35 Antibiotics) bruising codeine [CODEINE] Allergy Unknown RASH Verified 03/07/23 12:35 dicyclomine Allergy Unknown Unknown Verified 03/07/23 12:35 lidocaine [LIDOCAINE] Allergy Unknown UNKNOWN Verified 03/07/23 12:35 lithium [LITHIUM] AdvReac Severe NEPHROGENIC Verified 03/07/23 12:35 DIABETES INSIPIDUS meclizine [Meclizine] AdvReac Intermediate INCREASES Verified 03/07/23 12:35 DIZZINESS simvastatin [SIMVASTATIN] AdvReac Intermediate MYALGIAS Verified 03/07/23 12:35 metronidazole [METRONIDAZOLE] AdvReac Mild FLU LIKE Verified 03/07/23 12:35 SYMPTOMS acyclovir AdvReac Unknown Unknown Verified 03/07/23 12:35 dulaglutide [From Trulicity] AdvReac Unknown dizziness, Verified 03/07/23 12:35 tongue swollen semaglutide [From Ozempic] AdvReac Unknown Dizziness, Verified 03/07/23 12:35 problems remembering Review of Systems 2 Review of Systems: Constitutional : No Weight loss, No Fever, No Chills, No Fatigue, No Malaise ENT/Mouth : No sore throat, No Rhinorrhea Eyes: No Eye Pain, No Swelling, No Redness Cardiovascular : No Chest Pain, No SOB, No Dyspnea on Exertion, No Orthopnea, No Edema, No Palpitations Respiratory : No Cough, No Sputum, No Wheezing Gastrointestinal : No Nausea, No Vomiting, No Diarrhea, No Constipation, No abdominal Pain, No Hematochezia, No Melena Genitourinary : No Dysuria, No Urinary Frequency, No Hematuria, Musculoskeletal : No joint pain, No Myalgias, No Joint Swelling Skin : No Skin Lesions, No rash Neuro : No Weakness, No Numbness, No Dizziness, No Headache Psych : No Anxiety/Panic, No Depression All other systems reviewed and are negative Yes all other systems are reviewed and are negative PMFSH Past Medical History Attestation statement: The following information was validated with the patient. Source: old records reviewed and nursing notes reviewed Medical History Vaginal pain Gait instability PAF (paroxysmal atrial fibrillation) Hypertension Intertrigo Obesity (BMI 30-39.9) Bipolar disorder Anemia Allergic rhinitis Acquired hypothyroidism Pure hypercholesterolemia Diabetes mellitus GERD without esophagitis Pain of left lower extremity High bilirubin Hx of strabismus Hx of diabetes insipidus History of vitamin D deficiency Surgical History Hx of colonoscopy History of eye surgery History of left breast biopsy Hx of dilation and curettage Hx of cataract surgery (~07/2017) Family History Family History Father History of cerebral hemorrhage Mother History of cerebral hemorrhage Sister Breast cancer Social History Social History Household Members: Spouse Housing: Apartment Do you presently have visiting nurse or other home services: Yes Alcohol intake: never Patient Tobacco Use Status: Former Tobacco user Quit Date: 8yrs ago Years Smoked: 20 Smoked in Last 30 Days: No e-Cigarette/Vaping Use: Never Used Second Hand Smoke Exposure: Yes Use of substances other than those prescribed or required for medical reasons: No Advance Directives: Yes Advance Directives on File: Yes Advance Directives Date on File: 08/24/20 service: No Current occupational status: retired Cognitive needs: Yes (wheelchair) Hearing needs: No Vision needs: Yes (reading glasses) Physical Exam ED Vital Signs: Vital Signs - 24 hr 03/27/23 13:04 Temperature 98.5 F Pulse Rate 63 Respiratory Rate 15 Blood Pressure 181/81 H Pulse Oximetry 93 Oxygen Delivery Method Room Air BMI result Body Mass Index 34.2 VSS Appearance: Alert.? Oriented X3.? No acute distress.? Head: Normocephalic, atraumatic, no step-offs or deformities Eyes: Pupils equal, round and reactive to light.? Neck: Normal inspection.? Neck supple.? CVS: Normal heart rate and rhythm.? Pulses normal.? Respiratory: No respiratory distress.? Breath sounds normal.? Abdomen: Soft and nontender.? Skin: Skin warm and dry.? Normal skin color.? Normal skin turgor.? Extremities: No lower extremity edema.? No calf ttp. Actively moving all four extremities, strength unable to be assessed d/t patient cooperation Neuro: Oriented X 3.? No motor deficit.? No sensory deficit. CN 2-12 unable to be assessed d/t patient cooperation. No slurring of speech, no facial droop Psych: Bizarre, flat affect, well kempt, linear thought process Course Reevaluation(s) Reevaluation #1: CBC with no acute findings peer. Chemistry unremarkable. BNP within normal limits. Troponin pending, EKG nonischemic. Chest x-ray unremarkable. COVID negative. Time: 14:18 Reevaluation #2: Trop negative, EKG non ischemic. CXR no acute process. At this time patient will be placed into observation to allow more time to be evaluated by care team. At time observation was started patient calm cooperative no acute distress will continue monitor Time: 14:40 Medical Decision Making Medical Decision Making [facility] Narrative: 1313 77 y o female hx Bipolar presenting from [facility] for chest pain and anxiety, resolved [employer], currently no complaints Pe- RRR, lungs clear, bizzare and flat affect Likely anxiety vs panic attack vs behavioral disturbance. Also on the differential but less likely is ACS, GERD. Not concerned for PE, pneumothorax, dissection, percarditis, myocarditis, musculoskeletal pain, costochondritis. Plan -- labs, EKG Differential Diagnosis Differential Diagnoses: The differential diagnosis associated with the presentation includes Likely anxiety vs panic attack vs behavioral disturbance. Also on the differential but less likely is ACS, GERD. Not concerned for PE, pneumothorax, dissection, percarditis, myocarditis, musculoskeletal pain, costochondritis. Admission/Observation Consideration of admission/observation: Escalation of care including admission/observation considered Unlikely Consult Healthcare Provider Management of the patient was discussed with: Behavioral Health Provider Lab Data MDM Lab Attestation statement: I reviewed the patient's lab results. 03/27/23 13:47 03/27/23 13:47 Labs: Lab Results 03/27/23 Range/Units 13:47 WBC 9.0 (4.8-10.8) X10*3/uL RBC 4.09 L (4.20-5.50) X10*6/uL Hgb 13.1 (12.0-16.0) g/dl Hct 40.5 (37.0-47.0) % MCV 99.0 H (80.0-98.0) fL MCH 32.0 (27.0-33.0) pg MCHC 32.3 (31.0-35.0) g/dl RDW 13.3 (11.0-16.0) % Plt Count 224 (160-400) X10*3/uL MPV 9.0 L (9.4-12.3) fL Immature Gran % (Auto) 0.9 H (0.0-0.4) % Neut % (Auto) 67.3 (45-73) % Lymph % (Auto) 24.4 (20-40) % Charlton % (Auto) 6.0 (2-11) % Eos % (Auto) 1.1 (0-4) % Baso % (Auto) 0.3 (0-2) % Lymph # (Auto) 2.2 (1.2-4.9) X10*3/uL [place]ton # (Auto) 0.5 (0.1-1.2) X10*3/uL Eos # (Auto) 0.1 (0.0-0.4) X10*3/uL Baso # (Auto) 0.0 (0.0-0.2) X10*3/uL Abs Immat Gran (auto) 0.08 H (0.00-0.03) X10*3/uL Absolute Neuts (auto) 6.1 (2.0-8.3) x10*3/uL Absolute Nucleated RBC 0.000 (0.0-0.012) X10*3/uL Nucleated RBC % (auto) 0.0 (0.0-0.2) /100WBC Sodium 142 (135-145) mmol/L Potassium 4.2 (3.3-5.1) mmol/L Chloride 105 (96-108) mmol/L Carbon Dioxide 26 (22-29) mmol/L Anion Gap 15 (12-20) BUN 13 (9-16) mg/dL Creatinine 0.84 (0.5-1.4) mg/dL Estim Creat Clear Calc 63.0 Estimated GFR > 60 Random Glucose 136 H (60-115) mg/dL Calcium 9.7 (8.4-10.2) mg/dL Magnesium 1.9 (1.6-2.6) mg/dL Total Bilirubin 0.2 (0.0-1.0) mg/dL AST 11 (5-31) U/L ALT 13 (0-31) U/L Alkaline Phosphatase 64 (39-117) U/L Troponin I High Sens < 2.7 (<3.5-17.0) ng/L B-Natriuretic Peptide 25 (<100) pg/mL Total Protein 6.8 (6.5-8.0) g/dL Albumin 3.7 (3.5-5.0) g/dL Ethyl Alcohol < 10 mg/dL COVID-19 (ANGEL) Negative (Negative) COVID-19 Clin Com See Note Independent Interpretation I performed an independent interpretation of an: EKG (Vent rate 61 pr nornal qt/qtc normal. NSR. No flower or inversions concerning for ischemia ) and Plain X- Ray Radiology Impression Discussion of test interpretation with radiology: I have reviewed the radiologist's reading. Independent Historian Clinical information obtained from an independent historian. History obtained from or confirmed by: Friend and EMS External Record Review External record reviewed: Office record, Prior outpatient labs and Prior outpatient radiology Social Determinants Patient?s care significantly limited by Social Determinants of Health including: Other Social Determinant of Health Critical Care Time Critical Care Time Critical Care Time: No Discharge Plan Discharge Clinical Impression: Chest pain, Bipolar disorder, Anxiety Patient Disposition: Still a Patient Prescriptions: No Action (DME) lancing device with lancets [AdmitOne Security Lanc Device] Kit See Rx Instructions .ROUTE .MEDSUPPLY Qty: 1 Rx Instructions: As directed cholecalciferol (vitamin D3) [Vitamin D3] 25 mcg (1,000 unit) tablet 25 mcg PO DAILY Qty: 90 5RF metoprolol succinate 25 mg tablet extended release 24 hr 25 mg PO DAILY Qty: 90 3RF oxybutynin chloride 5 mg tablet 5 mg PO BID Qty: 180 1RF ascorbic acid (vitamin C) [Vitamin C] 500 mg tablet 500 mg PO DAILY Qty: 90 3RF Eliquis 5 mg tablet 5 mg PO BID Qty: 60 2RF nystatin 100,000 unit/mL suspension 1 ml buccal BID PRN (Reason: oral thrush) 30 Days Qty: 60 3RF Rx Instructions: administer 1/2 of dose in each side of the mouth metformin 500 mg tablet extended release 24 hr 500 mg PO BID Qty: 180 1RF ferrous fumarate [Ferrocite] 324 mg (106 mg iron) tablet 324 mg PO DAILY Qty: 100 2RF loratadine 10 mg Tablet 10 mg PO DAILY PRN (Reason: ALLERGIES) fluticasone propionate 50 mcg/actuation [facility],Suspension 1 spray INTRANASAL DAILY Rx Instructions: administer into each nostril levothyroxine 100 mcg tablet 100 mcg PO DAILY@0600 atorvastatin 40 mg tablet 40 mg PO BEDTIME meclizine 25 mg Tablet 25 mg PO DAILY PRN (Reason: MOTION SICKNESS/NAUSEA) pantoprazole 40 mg tablet,delayed release (DR/EC) 40 mg PO DAILY@0630 divalproex 500 mg tablet extended release 24 hr 500 mg PO BID Patient Comments: mood stabilizer perphenazine 4 mg tablet 4 mg PO BID Patient Comments: to help clear thoughts buspirone 5 mg tablet 5 mg PO BID Patient Comments: for anxiety risperidone 1 mg tablet 1.5 mg PO BID Patient Comments: to help clear thoughts (DME) pen needle, diabetic [BD Flory 2nd Gen Pen Needle] 32 gauge x 5/32 needle See Rx Instructions .ROUTE QID Qty: 50 Rx Instructions: As directed (DME) pen needle, diabetic [Easy Comfort Pen [employer]] 33 gauge x 5/32 needle See Rx Instructions .Route Qty: 100 5RF Rx Instructions: As directed injects 4 X/sday Interventions: [place]-Suicide Risk Severity Scale Last Done: 03/27/23 13:11
[2023-03-27 13:52] LABS: MANUAL DIFF FLAG NO
--- NOTE | 2023-03-27 13:55 | PHA.MEDREC ---
Pharmacy Consult ? Medication Reconciliation Pharmacy has completed the medication reconciliation. MED REC COMPLETE USING LIST PROVIDED BY [facility] AND CLAIM HISTORY FROM PT PHARMACY.
[2023-03-27 14:02] LABS: Basophils Percent Auto 0.3 % (0-2); Eosinophils Absolute Auto 0.1 X10*3/uL (0.0-0.4); Eosinophils Percent Auto 1.1 % (0-4); Hematocrit 40.5 % (37.0-47.0); Hemoglobin 13.1 g/dl (12.0-16.0); Imm Gran Abs Auto 0.08 X10*3/uL (0.00-0.03); Imm Gran Pct Auto 0.9 % (0.0-0.4); Lymphocytes Absolute Auto 2.2 X10*3/uL (1.2-4.9); Lymphocytes Percent Auto 24.4 % (20-40); Mean Corpuscular HGB Conc 32.3 g/dl (31.0-35.0); Monocytes Absolute Auto 0.5 X10*3/uL (0.1-1.2); Neutrophils Absolute Auto 6.1 x10*3/uL (2.0-8.3); Neutrophils Percent Auto 67.3 % (45-73); Platelet Count 224 X10*3/uL (160-400); Red Blood Count 4.09 X10*6/uL (4.20-5.50); Red Cell Distribution Width 13.3 % (11.0-16.0)
[2023-03-27 14:09] LABS: Alanine Aminotransferase 13 U/L (0-31); Albumin Level 3.7 g/dL (3.5-5.0); Alkaline Phosphatase 64 U/L (39-117); Anion Gap 15 (12-20); Aspartate Amino Transferase 11 U/L (5-31); Bilirubin Total 0.2 mg/dL (0.0-1.0); Blood Urea Nitrogen 13 mg/dL (9-16); Calcium 9.7 mg/dL (8.4-10.2); Carbon Dioxide 26 mmol/L (22-29); Chloride 105 mmol/L (96-108); Estimated Glomerular Filt Rate > 60; Glucose Random 136 mg/dL (60-115); Magnesium 1.9 mg/dL (1.6-2.6); Potassium 4.2 mmol/L (3.3-5.1); Sodium 142 mmol/L (135-145); Total Protein 6.8 g/dL (6.5-8.0)
[2023-03-27 14:52] LABS: Ethanol < 10 mg/dL
[2023-03-27 16:00] VITALS: BP 138/64; PULSE 63; RESP 16; TEMP 36.6; O2SAT 98
--- NOTE | 2023-03-27 16:41 | MHC.EDTECH ---
this pct assumed care of pt at 1500 ,vitals taken ,pt was reposition and boosted up in bed ,pt comfortable ,pt family at bedside ,pt drank 240 ml ice water .
[2023-03-27 17:39] LABS: Appearance Urine Clear; Color Urine Yellow; Glucose Urine UA Negative (Negative); Leukocyte Esterase Urine Negative (Negative); Nitrite Urine Negative (Negative); PH 6.5 (5.0-9.0); Specific Gravity - Urine <= 1.005 (1.005-1.025); Urine Blood Negative (Negative); Urine Ketones Negative (Negative); Urine Protein Negative (Neg-Trace)
[2023-03-27 17:46] LABS: Amphetamine Screen Urine Not Detected (Not Detect); Barbiturates, Urine Not Detected (Not Detect); Benzodiazepines Screen Urine Not Detected (Not Detect); Cannabinoid Screen Urine Not Detected (Not Detect); Cocaine Screen Urine Not Detected (Not Detect); Fentanyl, urine Not Detected (Not Detect); Opiate Screen Urine Not Detected (Not Detect); Phencyclidine Screen Urine Not Detected (Not Detect)
[2023-03-27 17:53] VITALS: BP 147/66; PULSE 61; RESP 16; TEMP 36.6; O2SAT 98
[2023-03-27 18:58] VITALS: BP 156/72; PULSE 60; RESP 17; TEMP 36.8; O2SAT 94
[2023-03-27] MEDS: busPIRone HCl 5 MG TABLET PO (20:22)
[2023-03-27] MEDS: risperiDONE 0.5 MG TABLET 1.5 MG PO (20:22)
[2023-03-27] MEDS: Apixaban 5 MG TABLET PO (20:22)
[2023-03-27] MEDS: oxyBUTYnin chloride 5 MG TABLET PO (20:22)
[2023-03-27] MEDS: Atorvastatin Calcium 40 MG TABLET PO (20:22)
[2023-03-27] MEDS: metFORMIN HCl ER 500 MG TAB.ER.24H PO (20:23)
[2023-03-27] MEDS: Divalproex Sodium ER 500 MG TAB.ER.24H PO (20:23)
[2023-03-27] MEDS: Perphenazine 4 MG TABLET PO (20:23)
[2023-03-27 21:16] LABS: Troponin-I High Sensitivity < 2.7 ng/L (<3.5-17.0)
== END 2023-03-27 21:29 | disposition home or self-care (01) ==
PROVIDERS: Physician Assistant; Emergency Provider Emergency Medicine Emergency Medical Services; PCP Internal Medicine
DX: R07.9 Chest pain, unspecified (principal); F31.9 Bipolar disorder, unspecified; F41.9 Anxiety disorder, unspecified; R06.02 Shortness of breath; Z11.52 Encounter for screening for COVID-19; E11.9 Type 2 diabetes mellitus without complications; I10 Essential (primary) hypertension; E78.00 Pure hypercholesterolemia, unspecified; I48.0 Paroxysmal atrial fibrillation; K21.9 Gastro-esophageal reflux disease without esophagitis; Z87.891 Personal history of nicotine dependence; Z79.899 Other long term (current) drug therapy
CPT/HCPCS: 36415; 71045; 80053; 80307; 81003; 83735; 83880; 84484; 85025; 87635; 93005; 99285; S9485

== ENCOUNTER 2023-04-10 16:37 | Outpatient (AMB) | payer MEDICARE, SELFPAY ==
--- NOTE | 2023-04-10 16:38 | A.OFFPC_ITS ---
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: No Accompanied by: Self / Same As Patient Allergies amoxicillin [Amoxicillin] Allergy (Intermediate, Verified 04/10/23 16:57) SWELLING, rash Sulfa (Sulfonamide Antibiotics) Allergy (Intermediate, Verified 04/10/23 16:57) itching & bruising codeine [CODEINE] Allergy (Unknown, Verified 04/10/23 16:57) RASH dicyclomine Allergy (Unknown, Verified 04/10/23 16:57) Unknown lidocaine [LIDOCAINE] Allergy (Unknown, Verified 04/10/23 16:57) UNKNOWN lithium [LITHIUM] Adverse Reaction (Severe, Verified 04/10/23 16:57) NEPHROGENIC DIABETES INSIPIDUS meclizine [Meclizine] Adverse Reaction (Intermediate, Verified 04/10/23 16:57) INCREASES DIZZINESS simvastatin [SIMVASTATIN] Adverse Reaction (Intermediate, Verified 04/10/23 16:57) MYALGIAS metronidazole [METRONIDAZOLE] Adverse Reaction (Mild, Verified 04/10/23 16:57) FLU LIKE SYMPTOMS acyclovir Adverse Reaction (Unknown, Verified 04/10/23 16:57) Unknown dulaglutide [From Trulicity] Adverse Reaction (Unknown, Verified 04/10/23 16:57) dizziness, tongue swollen semaglutide [From Ozempic] Adverse Reaction (Unknown, Verified 04/10/23 16:57) Dizziness, problems remembering Medication List - Last Reconciled 04/10/23 by Brown Dickson MD apixaban (Eliquis) 5 mg PO BID aripiprazole (Abilify) 2 mg PO DAILY ascorbic acid (vitamin C) (Vitamin C) 500 mg PO DAILY atorvastatin 40 mg PO BEDTIME buspirone 5 mg PO BID cholecalciferol (vitamin D3) (Vitamin D3) 25 mcg PO DAILY divalproex ER 500 mg PO BID ferrous fumarate (Ferrocite) 324 mg PO DAILY fluticasone propionate 50 mcg/actuation 1 spray intranasal DAILY lancing device with lancets ([employer] Lancing Device kit) As directed levothyroxine 100 mcg PO DAILY@0600 loratadine 10 mg PO DAILY PRN meclizine 25 mg PO DAILY PRN metformin ER 500 mg PO BID metoprolol succinate ER 25 mg PO DAILY nystatin 1 mL buccal BID PRN 30 days oxybutynin chloride 5 mg PO BID pantoprazole 40 mg PO DAILY@0630 pen needle, diabetic (BD Flory 2nd Gen Pen Needle) As directed pen needle, diabetic (Easy Comfort Pen [place]) As directed injects 4 X/sday risperidone 2 mg PO BID Tobacco use date assessed: 04/10/23 Fall risk assessment: 1 Fall in past year Last assessed Fall Risk: 04/10/23 Dental Screening Dental Screen Date: 04/10/23 Did you have a dental visit in the last 12 months?: Yes Did you have a dental problem in the last 6 months where you did not have access to dental care?: No Was dental information given to patient?: Patient has dentist HPI ED [facility] [place]- electric shock HPI Details Patient comes in today for her [facility] follow up visit - is accompanied by her daughter today Patient has reportedly been going through some kind of psychotic break and has been off her meds for the past couple of months, per her daughter States her psychiatrist has made some changes to her medications recently and patient seems to be getting back under control now Her daughter adds that patient's blood sugar has been running much higher recently and appears to be averaging between 200-220 mg/dL whenever this checked Her HgbA1c was also reportedly to be around 9.0% lately (was at 7.3% a few months ago) She was taken off her Perphenazine, which seems to be the one causing her recurrent electric shock-like sensations over her head and face recently Her Risperdal was increased to 2 mg BID and she has also been started on Abilify 2 mg daily at bedtime recently Patient states that she is starting to feel better and has not had the electric shock-like sensation over her head for the past few days She denies any headaches or dizziness Denies any chest pains, no shortness of breath No nausea / vomiting, no abdominal pain No change in bowel habits noted She was sent to the ER a couple of weeks ago when she was at her psychiatrist's office when she suddenly complained of chest pains Workups done in the ER, including labs and EKG, all came back negative Patient experience recurrent chest pains a couple of times subsequently, seemingly during the times when she was about to be discharged, and these were ultimately deemed to be most likely due to anxiety States that she has not had any chest pains since She continues to follow-up with Psychiatry every couple of weeks at present [facility] Medical History Vaginal pain Gait instability PAF (paroxysmal atrial fibrillation) Hypertension Intertrigo Obesity (BMI 30-39.9) Bipolar disorder Anemia Allergic rhinitis Acquired hypothyroidism Pure hypercholesterolemia Diabetes mellitus GERD without esophagitis Pain of left lower extremity High bilirubin Hx of strabismus Hx of diabetes insipidus History of vitamin D deficiency Surgical History Hx of colonoscopy History of eye surgery History of left breast biopsy Hx of dilation and curettage Hx of cataract surgery (~07/2017) Family History Father History of cerebral hemorrhage Mother History of cerebral hemorrhage Sister Breast cancer Social History Household Members: Spouse Housing: Apartment Do you presently have visiting nurse or other home services: Yes Alcohol intake: never Patient Tobacco Use Status: Former Tobacco user Quit Date: 8yrs ago Years Smoked: 20 e-Cigarette/Vaping Use: Never Used Second Hand Smoke Exposure: Yes Advance Directives Date on File: 08/24/20 service: No Current occupational status: retired Cognitive needs: Yes (wheelchair) Hearing needs: No Vision needs: Yes (reading glasses) Questionnaire PHQ-9 Over the last 2 weeks, how often have you been bothered by any of the following problems? 1. Little interest or pleasure in doing things: not at all 2. Feeling down, depressed, or hopeless: not at all 3. Trouble falling or staying asleep, or sleeping too much: not at all 4. Feeling tired or having little energy: not at all 5. Poor appetite or overeating: not at all 6. Feeling bad about yourself - or that you are a failure or have let yourself or your family down: not at all 7. Trouble concentrating on things, such as reading the newspaper or watching television: not at all 8. Moving or speaking so slowly that other people could have noticed. Or the opposite - being so fidgety or restless that you have been moving around a lot more than usual: not at all 9. Thoughts that you would be better off or of hurting yourself in some way: not at all Total score: 0 Depression Screening Interpretation: Negative (is on Rx) Depression Screening Done: Yes 79151 - PHQ-9 Billing: Yes Source: Developed by Drs. Sean Hugo, Kathleen Lagunas, Oumar Boyd and colleagues, with an educational talha from [employer]. Thrive Questionnaire Date Thrive assessed: 04/10/23 I am a: Patient What is your living situation today?: I have a steady place to live Within the past 12 months, did the food you bought not last and you didn't have the money to get more?: Never true Within the past 12 months, did you worry whether your food would run out before you got money to buy more?: Never true Do you have trouble paying for medicines?: No Do you have trouble getting transportation to medical appointments?: No Do you have trouble paying your heating and electricity bill?: No Do you have trouble taking care of your child, family member or friend?: No Do you have trouble with day-to-day activities such as bathing, preparing meals, shopping, managing finances, etc.?: No Are you currently unemployed and looking for a job?: No Are you interested in more education?: No Please select the resources that you would like help with: None Currently or been in a relationship where the following occur: no concerns reported AUDIT C Alcohol Use Questionnaire (AUDIT-C) 1. How often do you have a drink containing alcohol?: Never 3. How often do you have six or more drinks on one occasion?: Never Total Score: 0 Score Reviewed/Action Taken: Yes SHANTA-7 AMB Questionnaire SHANTA-7 Date SHANTA - 7 assessed: 04/10/23 Feeling nervous, anxious, or on edge: 0 = Not at all Not being able to stop or control worryin = Not at all Worrying too much about different things: 0 = Not at all Trouble relaxin = Not at all Being so restless that it is hard to sit still: 0 = Not at all Becoming easily annoyed or irritable: 0 = Not at all Feeling afraid as if something awful might happen: 0 = Not at all Total SHANTA-7 score (0-4 normal; 5-9 mild; 10-14 moderate; 15-21 severe): 0 Source: Developed by Drs. Sean Hugo, Kathleen Lagunas, Oumar Boyd and colleagues, with an educational talha from [employer]. Review of Systems Const Denies chills, Reports fatigue, Denies fever(s) and Denies headache(s) ENT Denies dysphagia, Denies dizziness, Denies headache(s), Denies neck pain, Denies odynophagia and Denies sore throat Card Denies chest pain, Denies palpitations and Denies dyspnea Resp Denies cough, Denies dyspnea and Denies wheezing GI Denies abdominal pain, Reports constipation (on and off - better controlled lately), Denies dysphagia, Denies heartburn, Reports diarrhea (on and off), Denies nausea, Denies odynophagia and Denies vomiting Denies difficulty voiding, Denies nocturia and Denies dysuria Musc Reports abnormal gait (unsteady - uses a walker), Denies back pain, Denies arthralgias and Denies neck pain Neuro Reports abnormal gait (unsteady - uses a walker), Denies dizziness and Denies headache(s) Psych Denies anxiety Endo Reports fatigue and Denies palpitations Jt/Lymph Denies easy bruising Aller/Immun Denies wheezing Physical exam (Primary Care) Vital Signs: Last Vital Signs Pulse 75 04/10/23 16:39 BP 108/64 04/10/23 16:39 Pulse Ox 92 04/10/23 16:39 Oxygen Delivery Method Room Air 04/10/23 16:39 BMI result Body Mass Index 34.9 Tobacco/Smoking Status: Tobacco use Status Tobacco use date assessed 04/10/23 04/10/23 16:41 Patient Tobacco Use Status Former Tobacco user 04/10/23 16:41 e-Cigarette/Vaping Use Never Used 04/10/23 16:41 PHQ-9: PHQ-9 Score PHQ-9: Total score 0 04/10/23 17:09 Depression Screening Interpretation: Negative (is on Rx) Thrive Assessment: Date of Thrive Assessment Date Thrive assessed 04/10/23 04/10/23 16:50 Currently or been in a relationship where the following occur: no concerns reported Const General: no acute distress and alert HENMT Throat: Yes posterior oropharynx normal and Yes tonsils normal (no TP congestion noted) Neck Neck: Yes no lymphadenopathy and Yes supple Resp Auscultation: clear to auscultation bilaterally, no rales and no wheezes Cardio Rate: regular rate Rhythm: regular rhythm Heart sounds: no murmurs GI Palpation (GI): Soft to palpation and nontender Auscultation: normal bowel sounds Extrem General: Yes no clubbing, cyanosis or edema Assessment and Plan Assessment & Plan (1) Brain TIA: Code(s): G45.9 - Transient cerebral ischemic attack, unspecified Plan: Occurred back in November 2022 and patient presented to the ER with sudden onset of left-sided weakness and left leg numbness Her symptoms gradually resolved while she was being evaluated in the ER CTA of the head and neck done came back negative She was seen by Neurology for follow-up a couple of months ago and was instr ucted to continue on Eliquis 5 mg BID as well as continue risk factor modification (2) Diabetes mellitus: Code(s): E11.9 - Type 2 diabetes mellitus without complications Qualifiers: Diabetes mellitus type: type 2 Diabetes mellitus [employer] insulin use: unspecified [employer] insulin use status Diabetes mellitus complication status: without complication Qualified Code(s): E11.9 - Type 2 diabetes mellitus without complications Plan: HgbA1c reportedly was at 9.0% recently, per her daughter (was at 7.3% back in November 2022, and previously at 8.1%) - goal is <7.0% Reinforced diabetic diet Continue Metformin ER 500 mg 1 tablet BID, Lantus Solostar 24 units Q HS and Trulicity 1.5 mg SQ once a week for now Follow up with endocrinology as scheduled (3) Pure hypercholesterolemia: Code(s): E78.00 - Pure hypercholesterolemia, unspecified Plan: Reinforced low cholesterol diet Continue Atorvastatin 40 mg QD (4) Paroxysmal atrial fibrillation: Code(s): I48.0 - Paroxysmal atrial fibrillation Plan: Is currently in sinus rhythm Continue Metoprolol ER 25 mg QD Continue Eliquis 5 mg BID for thromboembolism prophylaxis Follow up with cardiology as scheduled (5) Acquired hypothyroidism: Code(s): E03.9 - Hypothyroidism, unspecified Plan: Continue Levothyroxine 100 mcg QD Will continue to monitor her TFTs regularly (6) GERD without esophagitis: Code(s): K21.9 - Gastro-esophageal reflux disease without esophagitis Plan: Dietary restrictions reinforced Continue Pantoprazole 40 mg QD (7) Allergic rhinitis: Code(s): J30.9 - Allergic rhinitis, unspecified Qualifiers: Allergic rhinitis trigger: unspecified Allergic rhinitis seasonality: unspecified Qualified Code(s): J30.9 - Allergic rhinitis, unspecified Plan: Continue Loratadine 10 mg QD PRN (8) Anemia: Code(s): D64.9 - Anemia, unspecified Qualifiers: Anemia type: unspecified type Qualified Code(s): D64.9 - Anemia, unspecified Plan: Her anemia was corrected/resolved on her labs done back in November 2022 Continue Ferrous fumarate 325 mg QD Will continue to monitor her CBC regularly (9) Gait instability: Code(s): R26.81 - Unsteadiness on feet Plan: Is currently ambulating well with a walker States that her gait has improved somewhat with physical therapy and we can refer her to PT again as needed (10) Bipolar disorder: Code(s): F31.9 - Bipolar disorder, unspecified Qualifiers: Active/Remission status: currently active Current bipolar episode type: mixed Current episode severity: unspecified Qualified Code(s): F31.60 - Bipolar disorder, current episode mixed, unspecified Plan: Continue Risperidone 2 mg twice a day, Lorazepam 1 mg once a day at bedtime as needed and Divalproex ER 500 mg 1 tablet in AM and 2 tablets at bedtime She was also started on Abilify 2 mg daily at bedtime recently and was taken off her Perphenazine Follow up with psychiatry as scheduled (11) Obesity (BMI 30-39.9): Code(s): E66.9 - Obesity, unspecified Plan: Reinforced diet; exercise and weight loss are unrealistic given patient's gait instability and multiple comorbidities Plan Follow up as scheduled in May 2023 Coding Level of Care Code Est Pt Level 3 (76359) Diagnoses Brain TIA G45.9 Type 2 diabetes mellitus without complication, unspecified whether [employer] insulin use E11.9 Diabetes mellitus type: type 2 Diabetes mellitus [employer] insulin use: unspecified alf insulin use status Diabetes mellitus complication status: without complication Pure hypercholesterolemia E78.00 Paroxysmal atrial fibrillation I48.0 Acquired hypothyroidism E03.9 GERD without esophagitis K21.9 Allergic rhinitis, unspecified seasonality, unspecified trigger J30.9 Allergic rhinitis trigger: unspecified Allergic rhinitis seasonality: unspecified Anemia, unspecified type D64.9 Anemia type: unspecified type Gait instability R26.81 Bipolar affective disorder, current episode mixed, current episode severity unspecified F31.60 Active/Remission status: currently active Current bipolar episode type: mixed Current episode severity: unspecified Obesity (BMI 30-39.9) E66.9
[2023-04-10 16:39] VITALS: BP 108/64; PULSE 75; O2SAT 92; BMI 34.9
== END 2023-04-10 17:11 | disposition home or self-care (01) ==
PROVIDERS: PCP Internal Medicine; Visit Provider Internal Medicine
DX: E11.9 Type 2 diabetes mellitus without complications (principal); I48.0 Paroxysmal atrial fibrillation; F31.60 Bipolar disorder, current episode mixed, unspecified; G45.9 Transient cerebral ischemic attack, unspecified; E78.00 Pure hypercholesterolemia, unspecified; E03.9 Hypothyroidism, unspecified; K21.9 Gastro-esophageal reflux disease without esophagitis; J30.9 Allergic rhinitis, unspecified; D64.9 Anemia, unspecified; R26.81 Unsteadiness on feet; E66.9 Obesity, unspecified
CPT/HCPCS: 99213

== ENCOUNTER 2023-05-03 18:11 | Emergency (ER) | payer MEDICARE, SELFPAY ==
--- NOTE | ~2023-05-03 | XR_ITS ---
EXAMINATION: CHEST 2 VIEWS CLINICAL INFORMATION: chest pain. COMPARISON: 03/27/2023. TECHNIQUE: PA and lateral views of the chest obtained. FINDINGS: The lungs are well expanded. Mild chronic appearing reticular markings but no superimposed focal infiltrate, effusion, edema, or pneumothorax. Cardiac and mediastinal silhouettes are within normal limits for technique. No acute bony abnormality seen XR/XR chest 2V IMPRESSION: No evidence of acute disease
[2023-05-03 18:18] VITALS: BP 121/71; PULSE 69; RESP 16; TEMP 37.1; O2SAT 92; BMI 32.0
--- NOTE | 2023-05-03 18:21 | ED_ITS ---
HPI - General Adult General Stated complaint: bad cold, congested, phlegmy. Related Data Home Medications Medication Instructions Recorded Confirmed lancing device with lancets kit #1 ea 05/11/20 04/10/23 ([employer] Lancing Device kit) buspirone 5 mg tablet 5 mg PO BID anxiety 03/01/22 04/10/23 divalproex 500 mg tablet,extended 500 mg PO BID 03/01/22 04/10/23 release 24 hr pen needle, diabetic 32 gauge x #50 ea 04/20/22 04/10/23 (BD Flory 2nd Gen Pen Needle) atorvastatin 40 mg tablet 40 mg PO BEDTIME 03/27/23 04/10/23 fluticasone propionate 50 1 spray intranasal DAILY 03/27/23 04/10/23 mcg/actuation nasal spray,suspension levothyroxine 100 mcg tablet 100 mcg PO DAILY@0600 03/27/23 04/10/23 loratadine 10 mg tablet 10 mg PO DAILY PRN ALLERGIES 03/27/23 04/10/23 meclizine 25 mg tablet 25 mg PO DAILY PRN MOTION 03/27/23 04/10/23 SICKNESS/NAUSEA pantoprazole 40 mg tablet,delayed 40 mg PO DAILY@0630 03/27/23 04/10/23 release aripiprazole 2 mg tablet (Abilify) 2 mg PO DAILY 04/10/23 04/10/23 risperidone 1 mg tablet 2 mg PO BID 04/10/23 04/10/23 Previous Rx's Medication Instructions Recorded pen needle, diabetic 33 gauge x #100 ea 03/29/22 (Easy Comfort Pen [place]) cholecalciferol (vitamin D3) 25 25 mcg PO DAILY #90 tabs 04/08/22 mcg (1,000 unit) tablet (Vitamin D3) metoprolol succinate 25 mg 25 mg PO DAILY #90 tabs 10/17/22 tablet,extended release 24 hr oxybutynin chloride 5 mg tablet 5 mg PO BID #180 tabs 01/18/23 apixaban 5 mg tablet (Eliquis) 5 mg PO BID #60 tabs 03/14/23 ascorbic acid (vitamin C) 500 mg 500 mg PO DAILY #90 tabs 03/14/23 tablet (Vitamin C) ferrous fumarate 324 mg (106 mg 324 mg PO DAILY #100 tabs 03/19/23 iron) tablet (Ferrocite) metformin 500 mg tablet,extended 500 mg PO BID #180 tabs 03/19/23 release 24 hr nystatin 100,000 unit/mL oral 1 ml buccal BID PRN oral thrush 30 03/19/23 suspension days #60 mL Allergies Allergy/AdvReac Type Severity Reaction Status Date / Time amoxicillin [Amoxicillin] Allergy Intermediate SWELLING, Verified 04/10/23 16:57 rash Sulfa (Sulfonamide Allergy Intermediate itching & Verified 04/10/23 16:57 Antibiotics) bruising codeine [CODEINE] Allergy Unknown RASH Verified 04/10/23 16:57 dicyclomine Allergy Unknown Unknown Verified 04/10/23 16:57 lidocaine [LIDOCAINE] Allergy Unknown UNKNOWN Verified 04/10/23 16:57 lithium [LITHIUM] AdvReac Severe NEPHROGENIC Verified 04/10/23 16:57 DIABETES INSIPIDUS meclizine [Meclizine] AdvReac Intermediate INCREASES Verified 04/10/23 16:57 DIZZINESS simvastatin [SIMVASTATIN] AdvReac Intermediate MYALGIAS Verified 04/10/23 16:57 metronidazole [METRONIDAZOLE] AdvReac Mild FLU LIKE Verified 04/10/23 16:57 SYMPTOMS acyclovir AdvReac Unknown Unknown Verified 04/10/23 16:57 dulaglutide [From Trulicity] AdvReac Unknown dizziness, Verified 04/10/23 16:57 tongue swollen semaglutide [From Ozempic] AdvReac Unknown Dizziness, Verified 04/10/23 16:57 problems remembering PMFSH Past Medical History Medical History Vaginal pain Gait instability PAF (paroxysmal atrial fibrillation) Hypertension Intertrigo Obesity (BMI 30-39.9) Bipolar disorder Anemia Allergic rhinitis Acquired hypothyroidism Pure hypercholesterolemia Diabetes mellitus GERD without esophagitis Pain of left lower extremity High bilirubin Hx of strabismus Hx of diabetes insipidus History of vitamin D deficiency Surgical History Hx of colonoscopy History of eye surgery History of left breast biopsy Hx of dilation and curettage Hx of cataract surgery (~07/2017) Family History Family History Father History of cerebral hemorrhage Mother History of cerebral hemorrhage Sister Breast cancer Social History Social History Household Members: Spouse Housing: Apartment Do you presently have visiting nurse or other home services: Yes Alcohol intake: never Patient Tobacco Use Status: Former Tobacco user Quit Date: 8yrs ago Years Smoked: 20 e-Cigarette/Vaping Use: Never Used Second Hand Smoke Exposure: Yes Advance Directives Date on File: 08/24/20 service: No Current occupational status: retired Cognitive needs: Yes (wheelchair) Hearing needs: No Vision needs: Yes (reading glasses) Course Course Course Narrative: This is an RME: Additional HPI, ROS, PE not included below will be deferred to primary provider. 77 y o female hx GERD, Intertrigo, hyperlipidemia, DM, Bipolar presenting to the emergency department with complaints of diarrhea, increase urination, occasional productive cough with clear colored sputum for the last 3-4 days. Here with who is presenting with cold-like symptoms. Oxygen saturation 93% on room air. Lungs are clear to auscultation bilaterally. Plan: Labs, chest x-ray, viral swab, UA Discharge Plan Discharge Prescriptions: No Action (DME) lancing device with lancets [[employer] Lanc Device] Kit See Rx Instructions .ROUTE .MEDSUPPLY Qty: 1 Rx Instructions: As directed cholecalciferol (vitamin D3) [Vitamin D3] 25 mcg (1,000 unit) tablet 25 mcg PO DAILY Qty: 90 5RF metoprolol succinate 25 mg tablet extended release 24 hr 25 mg PO DAILY Qty: 90 3RF oxybutynin chloride 5 mg tablet 5 mg PO BID Qty: 180 1RF ascorbic acid (vitamin C) [Vitamin C] 500 mg tablet 500 mg PO DAILY Qty: 90 3RF Eliquis 5 mg tablet 5 mg PO BID Qty: 60 2RF nystatin 100,000 unit/mL suspension 1 ml buccal BID PRN (Reason: oral thrush) 30 Days Qty: 60 3RF Rx Instructions: administer 1/2 of dose in each side of the mouth metformin 500 mg tablet extended release 24 hr 500 mg PO BID Qty: 180 1RF ferrous fumarate [Ferrocite] 324 mg (106 mg iron) tablet 324 mg PO DAILY Qty: 100 2RF loratadine 10 mg Tablet 10 mg PO DAILY PRN (Reason: ALLERGIES) fluticasone propionate 50 mcg/actuation [place],Suspension 1 spray INTRANASAL DAILY Rx Instructions: administer into each nostril levothyroxine 100 mcg tablet 100 mcg PO DAILY@0600 atorvastatin 40 mg tablet 40 mg PO BEDTIME meclizine 25 mg Tablet 25 mg PO DAILY PRN (Reason: MOTION SICKNESS/NAUSEA) pantoprazole 40 mg tablet,delayed release (DR/EC) 40 mg PO DAILY@0630 divalproex 500 mg tablet extended release 24 hr 500 mg PO BID Patient Comments: mood stabilizer buspirone 5 mg tablet 5 mg PO BID Patient Comments: for anxiety risperidone 1 mg tablet 2 mg PO BID Patient Comments: to help clear thoughts aripiprazole [Abilify] 2 mg tablet 2 mg PO DAILY (DME) pen needle, diabetic [BD [employer]ory 2nd Gen Pen Needle] 32 gauge x 5/32 needle See Rx Instructions .ROUTE QID Qty: 50 Rx Instructions: As directed (DME) pen needle, diabetic [Easy Comfort Pen [place]] 33 gauge x 5/32 needle See Rx Instructions .Route Qty: 100 5RF Rx Instructions: As directed injects 4 X/sday
[2023-05-03 18:41] LABS: MANUAL DIFF FLAG NO
[2023-05-03 18:42] LABS: Basophils Percent Auto 0.3 % (0-2); Eosinophils Percent Auto 0.5 % (0-4); Hematocrit 39.8 % (37.0-47.0); Imm Gran Abs Auto 0.11 X10*3/uL (0.00-0.03); Imm Gran Pct Auto 1.9 % (0.0-0.4); Lymphocytes Absolute Auto 1.7 X10*3/uL (1.2-4.9); Lymphocytes Percent Auto 29.7 % (20-40); Mean Corpuscular HGB Conc 32.7 g/dl (31.0-35.0); Mean Corpuscular Hemoglobin 31.7 pg (27.0-33.0); Mean Corpuscular Volume 97.1 fL (80.0-98.0); Mean Platelet Volume 8.4 fL (9.4-12.3); Monocytes Absolute Auto 0.8 X10*3/uL (0.1-1.2); Monocytes Percent Auto 13.1 % (2-11); Neutrophils Absolute Auto 3.2 x10*3/uL (2.0-8.3); Neutrophils Percent Auto 54.5 % (45-73); Platelet Count 184 X10*3/uL (160-400); White Blood Count 5.8 X10*3/uL (4.8-10.8)
[2023-05-03 19:00] LABS: Alanine Aminotransferase 14 U/L (0-31); Alkaline Phosphatase 73 U/L (39-117); Anion Gap 13 (12-20); Aspartate Amino Transferase 15 U/L (5-31); Bilirubin Direct 0.2 mg/dL (0.0-0.5); Bilirubin Total 0.3 mg/dL (0.0-1.0); Blood Urea Nitrogen 12 mg/dL (9-16); Calcium 9.5 mg/dL (8.4-10.2); Carbon Dioxide 27 mmol/L (22-29); Chloride 103 mmol/L (96-108); Creatinine Clr Calc Pharmacy 57.7; Estimated Glomerular Filt Rate 57; Glucose Random 167 mg/dL (60-115); Potassium 4.3 mmol/L (3.3-5.1); Sodium 139 mmol/L (135-145); Total Protein 7.1 g/dL (6.5-8.0)
[2023-05-03 19:20] LABS: Influenza A PCR NEGATIVE (Negative); Influenza B PCR NEGATIVE (Negative); Resp Syncy Virus RNA Qual PCR NEGATIVE (Negative); SARS COV2 PCR INHOUSE POSITIVE (Negative)
[2023-05-03 19:54] VITALS: BP 130/76; PULSE 65; RESP 18; TEMP 37.2; O2SAT 94
--- NOTE | 2023-05-03 20:58 | ED.GENADULT ---
HPI - General Adult General Chief complaint: General Medical Stated complaint: bad cold, congested, phlegmy. Time Seen by Provider: 05/03/23 19:59 History of Present Illness HPI narrative: Patient has had a runny nose and a cough for about 3 or 4 days. Over the last 24 hours her has developed similar symptoms. No definite fever. Both she and her came to the emergency room for evaluation of their symptoms. No definite fever. She has had some mild loose stools. Related Data Home Medications Medication Instructions Recorded Confirmed lancing device with lancets kit #1 ea 05/11/20 04/10/23 ([employer] Lancing Device kit) buspirone 5 mg tablet 5 mg PO BID anxiety 03/01/22 04/10/23 divalproex 500 mg tablet,extended 500 mg PO BID 03/01/22 04/10/23 release 24 hr pen needle, diabetic 32 gauge x #50 ea 04/20/22 04/10/23 (BD Flory 2nd Gen Pen Needle) atorvastatin 40 mg tablet 40 mg PO BEDTIME 03/27/23 04/10/23 fluticasone propionate 50 1 spray intranasal DAILY 03/27/23 04/10/23 mcg/actuation nasal spray,suspension levothyroxine 100 mcg tablet 100 mcg PO DAILY@0600 03/27/23 04/10/23 loratadine 10 mg tablet 10 mg PO DAILY PRN ALLERGIES 03/27/23 04/10/23 meclizine 25 mg tablet 25 mg PO DAILY PRN MOTION 03/27/23 04/10/23 SICKNESS/NAUSEA pantoprazole 40 mg tablet,delayed 40 mg PO DAILY@0630 03/27/23 04/10/23 release aripiprazole 2 mg tablet (Abilify) 2 mg PO DAILY 04/10/23 04/10/23 risperidone 1 mg tablet 2 mg PO BID 04/10/23 04/10/23 Previous Rx's Medication Instructions Recorded pen needle, diabetic 33 gauge x #100 ea 03/29/22 (Easy Comfort Pen Childs) cholecalciferol (vitamin D3) 25 25 mcg PO DAILY #90 tabs 04/08/22 mcg (1,000 unit) tablet (Vitamin D3) metoprolol succinate 25 mg 25 mg PO DAILY #90 tabs 10/17/22 tablet,extended release 24 hr oxybutynin chloride 5 mg tablet 5 mg PO BID #180 tabs 01/18/23 apixaban 5 mg tablet (Eliquis) 5 mg PO BID #60 tabs 03/14/23 ascorbic acid (vitamin C) 500 mg 500 mg PO DAILY #90 tabs 03/14/23 tablet (Vitamin C) ferrous fumarate 324 mg (106 mg 324 mg PO DAILY #100 tabs 03/19/23 iron) tablet (Ferrocite) metformin 500 mg tablet,extended 500 mg PO BID #180 tabs 03/19/23 release 24 hr nystatin 100,000 unit/mL oral 1 ml buccal BID PRN oral thrush 30 03/19/23 suspension days #60 mL nirmatrelvir 150 mg-ritonavir 100 See Rx Instructions PO .COMPLEX 05/03/23 mg tablets in a dose pack #20 ea (Paxlovid) Allergies Allergy/AdvReac Type Severity Reaction Status Date / Time amoxicillin [Amoxicillin] Allergy Intermediate SWELLING, Verified 04/10/23 16:57 rash Sulfa (Sulfonamide Allergy Intermediate itching & Verified 04/10/23 16:57 Antibiotics) bruising codeine [CODEINE] Allergy Unknown RASH Verified 04/10/23 16:57 dicyclomine Allergy Unknown Unknown Verified 04/10/23 16:57 lidocaine [LIDOCAINE] Allergy Unknown UNKNOWN Verified 04/10/23 16:57 lithium [LITHIUM] AdvReac Severe NEPHROGENIC Verified 04/10/23 16:57 DIABETES INSIPIDUS meclizine [Meclizine] AdvReac Intermediate INCREASES Verified 04/10/23 16:57 DIZZINESS simvastatin [SIMVASTATIN] AdvReac Intermediate MYALGIAS Verified 04/10/23 16:57 metronidazole [METRONIDAZOLE] AdvReac Mild FLU LIKE Verified 04/10/23 16:57 SYMPTOMS acyclovir AdvReac Unknown Unknown Verified 04/10/23 16:57 dulaglutide [From Trulicity] AdvReac Unknown dizziness, Verified 04/10/23 16:57 tongue swollen semaglutide [From Ozempic] AdvReac Unknown Dizziness, Verified 04/10/23 16:57 problems remembering Review of Systems Review of Systems: Yes all other systems are reviewed and are negative PMFSH Past Medical History Medical History Vaginal pain Gait instability PAF (paroxysmal atrial fibrillation) Hypertension Intertrigo Obesity (BMI 30-39.9) Bipolar disorder Anemia Allergic rhinitis Acquired hypothyroidism Pure hypercholesterolemia Diabetes mellitus GERD without esophagitis Pain of left lower extremity High bilirubin Hx of strabismus Hx of diabetes insipidus History of vitamin D deficiency Surgical History Hx of colonoscopy History of eye surgery History of left breast biopsy Hx of dilation and curettage Hx of cataract surgery (~07/2017) Family History Family History Father History of cerebral hemorrhage Mother History of cerebral hemorrhage Sister Breast cancer Social History Social History Household Members: Spouse Housing: Apartment Do you presently have visiting nurse or other home services: Yes Alcohol intake: never Patient Tobacco Use Status: Former Tobacco user Quit Date: 8yrs ago Years Smoked: 20 Smoked in Last 30 Days: No e-Cigarette/Vaping Use: Never Used Second Hand Smoke Exposure: Yes Use of substances other than those prescribed or required for medical reasons: No Advance Directives: Yes Advance Directives on File: Yes Advance Directives Date on File: 08/24/20 service: No Current occupational status: retired Cognitive needs: Yes (wheelchair) Hearing needs: No Vision needs: Yes (reading glasses) Physical Exam ED Vital Signs: Vital Signs - 24 hr 05/03/23 18:18 05/03/23 19:54 Temperature 98.7 F 99 F Pulse Rate 69 65 Respiratory Rate 16 18 Blood Pressure 121/71 130/76 Pulse Oximetry 92 94 Oxygen Delivery Method Room Air Room Air BMI result Body Mass Index 32.0 Const Other: Patient is a somewhat chronically ill-appearing 77-year-old. She looks mildly unwell but not acutely toxic or in distress. HENMT Other: Face is symmetrical. Mucous membranes are moist. Pharynx is unremarkable. Eyes Other: Pupils are round equal, conjunctivae are clear Neck Other: No JVD Resp Other: Lungs are clear bilaterally. No crackles or wheezes. Cardio Other: The patient has a regular rate and rhythm without murmur GI Other: Abdomen is soft and nontender Skin Other: Skin is pale and dry. Neuro Other: The patient is awake and alert. She seems as if she is somewhat generally debilitated. Face is symmetrical. Speech is clear. She moves her extremities symmetrically. No focal neurological deficit. Extrem Other: No significant peripheral edema. Medical Decision Making Medical Decision Making [facility] Narrative: 77-year-old woman who presents with 3 or 4 days of mostly respiratory symptoms. She has tested positive for COVID. She reports having had approximately 3 or 4 immunizations for COVID previously. She does not seem ill enough to require hospitalization. She was not tachycardic, blood pressures were unremarkable. She was not showing any increased work of breathing and her oxygen saturations are adequate on room air. Her CBC was unremarkable with a white count of 5000. Her basic metabolic panel showed normal electrolytes. Her estimated GFR is 57. Chest x-ray shows no acute findings. Patient does not seem to require hospitalization. She would like to take Paxlovid. She is on a number of medications some of which have potential interactions with Paxlovid. She is on atorvastatin which should be held while on this medication. She is on apixaban. Dosage of apixaban should be halved while on Paxlovid. Additionally she is on buspirone 5 mg b.i.d.. Apparently the maximum dose for buspirone while on Paxlovid is 2.5 mg daily. These medication adjustments were discussed with the patient and with her and were clearly written out under discharge instructions. They seem to understand. Since the patient's GFR is between 30 and 60 she will be prescribed the reduced dose of Paxlovid, 2 tablets b.i.d. x5 days rather than 3. She should stay in touch with her primary care provider as needed for additional advice. She should return to the ER if worse. Lab Data 05/03/23 18:29 05/03/23 18:29 Labs: Lab Results 05/03/23 Range/Units 18:29 WBC 5.8 (4.8-10.8) X10*3/uL RBC 4.10 L (4.20-5.50) X10*6/uL Hgb 13.0 (12.0-16.0) g/dl Hct 39.8 (37.0-47.0) % MCV 97.1 (80.0-98.0) fL MCH 31.7 (27.0-33.0) pg MCHC 32.7 (31.0-35.0) g/dl RDW 14.0 (11.0-16.0) % Plt Count 184 (160-400) X10*3/uL MPV 8.4 L (9.4-12.3) fL Immature Gran % (Auto) 1.9 H (0.0-0.4) % Neut % (Auto) 54.5 (45-73) % Lymph % (Auto) 29.7 (20-40) % [facility] % (Auto) 13.1 H (2-11) % Eos % (Auto) 0.5 (0-4) % Baso % (Auto) 0.3 (0-2) % Lymph # (Auto) 1.7 (1.2-4.9) X10*3/uL [facility] # (Auto) 0.8 (0.1-1.2) X10*3/uL Eos # (Auto) 0.0 (0.0-0.4) X10*3/uL Baso # (Auto) 0.0 (0.0-0.2) X10*3/uL Abs Immat Gran (auto) 0.11 H (0.00-0.03) X10*3/uL Absolute Neuts (auto) 3.2 (2.0-8.3) x10*3/uL Absolute Nucleated RBC 0.000 (0.0-0.012) X10*3/uL Nucleated RBC % (auto) 0.0 (0.0-0.2) /100WBC Sodium 139 (135-145) mmol/L Potassium 4.3 (3.3-5.1) mmol/L Chloride 103 (96-108) mmol/L Carbon Dioxide 27 (22-29) mmol/L Anion Gap 13 (12-20) BUN 12 (9-16) mg/dL Creatinine 0.95 (0.5-1.4) mg/dL Estim Creat Clear Calc 57.7 Estimated GFR 57 Random Glucose 167 H (60-115) mg/dL Calcium 9.5 (8.4-10.2) mg/dL Total Bilirubin 0.3 (0.0-1.0) mg/dL Direct Bilirubin 0.2 (0.0-0.5) mg/dL AST 15 (5-31) U/L ALT 14 (0-31) U/L Alkaline Phosphatase 73 (39-117) U/L Total Protein 7.1 (6.5-8.0) g/dL Albumin 4.0 (3.5-5.0) g/dL Influenza Type A (PCR) NEGATIVE (Negative) Influenza Type B (PCR) NEGATIVE (Negative) RSV RNA Qual (PCR) NEGATIVE (Negative) SARS-CoV-2 RNA (RT-PCR) POSITIVE A (Negative) Discharge Plan Discharge Clinical Impression: COVID Patient Disposition: Home, Self-Care Instructions: COVID-19 (Coronavirus Disease 2019) (ED) Additional Instructions: You have tested positive for COVID today. Other testing today is reassuring. I have sent a prescription for the anti COVID medication Paxlovid to the [facility] on [address] in [place](a 24 hour pharmacy). Start this medication as soon as you get it. You have a smaller dose than your 's dose because of your kidney function. Additionally there are 3 medications you will need to adjust while taking Paxlovid. These 3 medications are apixaban(Eliquis, your blood thinner), atorvastatin, and buspirone (BuSpar). Please do not take the atorvastatin while taking Paxlovid. Please take a half dose of the apixaban (Eliquis) while on the Paxlovid. Please cut these pills in half for a smaller dose. For the buspirone please reduce your dose from 5 mg 2 times a day to 2.5 mg once a day. Therefore only take half a tablet daily for the 5 days that you are taking Paxlovid. Stay in touch with the regular doctor for additional advice as needed. Return to the emergency room if significantly worse. Prescriptions: New Paxlovid 150-100 mg tablets,dose pack See Rx Instructions .ROUTE .COMPLEX Qty: 20 0RF Rx Instructions: take ONE 150 mg tablet of nirmatrelvir with ONE 100 mg tablet of ritonavir twice daily for 5 days No Action (DME) lancing device with lancets [[employer] Lanc Device] Kit See Rx Instructions .ROUTE .MEDSUPPLY Qty: 1 Rx Instructions: As directed cholecalciferol (vitamin D3) [Vitamin D3] 25 mcg (1,000 unit) tablet 25 mcg PO DAILY Qty: 90 5RF metoprolol succinate 25 mg tablet extended release 24 hr 25 mg PO DAILY Qty: 90 3RF oxybutynin chloride 5 mg tablet 5 mg PO BID Qty: 180 1RF ascorbic acid (vitamin C) [Vitamin C] 500 mg tablet 500 mg PO DAILY Qty: 90 3RF Eliquis 5 mg tablet 5 mg PO BID Qty: 60 2RF nystatin 100,000 unit/mL suspension 1 ml buccal BID PRN (Reason: oral thrush) 30 Days Qty: 60 3RF Rx Instructions: administer 1/2 of dose in each side of the mouth metformin 500 mg tablet extended release 24 hr 500 mg PO BID Qty: 180 1RF ferrous fumarate [Ferrocite] 324 mg (106 mg iron) tablet 324 mg PO DAILY Qty: 100 2RF loratadine 10 mg Tablet 10 mg PO DAILY PRN (Reason: ALLERGIES) fluticasone propionate 50 mcg/actuation Kelly,Suspension 1 spray INTRANASAL DAILY Rx Instructions: administer into each nostril levothyroxine 100 mcg tablet 100 mcg PO DAILY@0600 atorvastatin 40 mg tablet 40 mg PO BEDTIME meclizine 25 mg Tablet 25 mg PO DAILY PRN (Reason: MOTION SICKNESS/NAUSEA) pantoprazole 40 mg tablet,delayed release (DR/EC) 40 mg PO DAILY@0630 divalproex 500 mg tablet extended release 24 hr 500 mg PO BID Patient Comments: mood stabilizer buspirone 5 mg tablet 5 mg PO BID Patient Comments: for anxiety risperidone 1 mg tablet 2 mg PO BID Patient Comments: to help clear thoughts aripiprazole [Abilify] 2 mg tablet 2 mg PO DAILY (DME) pen needle, diabetic [BD Flory 2nd Gen Pen Needle] 32 gauge x 5/32 needle See Rx Instructions .ROUTE QID Qty: 50 Rx Instructions: As directed (DME) pen needle, diabetic [Easy Comfort Pen Childs] 33 gauge x 5/32 needle See Rx Instructions .Route Qty: 100 5RF Rx Instructions: As directed injects 4 X/sday Referrals: Brown Dickson MD [Primary Care Provider] - Interventions: ED Discharge Assessment Last Done: 05/03/23 21:26 Discharge Date/Time: 05/03/23 21:27
== END 2023-05-03 21:27 | disposition home or self-care (01) ==
PROVIDERS: Physician Assistant Medical; Emergency Provider Emergency Medicine; PCP Internal Medicine
DX: U07.1 COVID-19 (principal); R09.81 Nasal congestion; R05.9 Cough, unspecified; Z87.891 Personal history of nicotine dependence; Z79.899 Other long term (current) drug therapy
CPT/HCPCS: 0241U; 71046; 80048; 80076; 85025; 99283; 99284

== ENCOUNTER 2023-05-20 13:46 | Outpatient (AMB) | payer MEDICARE, SELFPAY ==
[2023-05-20 13:48] VITALS: BP 130/84; PULSE 66; BMI 32.4
--- NOTE | 2023-05-20 13:48 | A.OFFVIS_ITS ---
Intake Vital Signs 05/20/23 13:48 Height 5 ft 6 in Weight 200 lb 9.93 oz BMI 32.4 BP 130/84 Blood Pressure Location Lt brachial Position Sitting Pulse 66 Intake Visit Reasons: 1 YR FU Intake Note: 1 year follow-up feeling good had ekg end of 04/08 [employer] Supervisor Required: No Allergies amoxicillin [Amoxicillin] Allergy (Intermediate, Verified 04/10/23 16:57) SWELLING, rash Sulfa (Sulfonamide Antibiotics) Allergy (Intermediate, Verified 04/10/23 16:57) itching & bruising codeine [CODEINE] Allergy (Unknown, Verified 04/10/23 16:57) RASH dicyclomine Allergy (Unknown, Verified 04/10/23 16:57) Unknown lidocaine [LIDOCAINE] Allergy (Unknown, Verified 04/10/23 16:57) UNKNOWN lithium [LITHIUM] Adverse Reaction (Severe, Verified 04/10/23 16:57) NEPHROGENIC DIABETES INSIPIDUS meclizine [Meclizine] Adverse Reaction (Intermediate, Verified 04/10/23 16:57) INCREASES DIZZINESS simvastatin [SIMVASTATIN] Adverse Reaction (Intermediate, Verified 04/10/23 16:57) MYALGIAS metronidazole [METRONIDAZOLE] Adverse Reaction (Mild, Verified 04/10/23 16:57) FLU LIKE SYMPTOMS acyclovir Adverse Reaction (Unknown, Verified 04/10/23 16:57) Unknown dulaglutide [From Trulicity] Adverse Reaction (Unknown, Verified 04/10/23 16:57) dizziness, tongue swollen semaglutide [From Ozempic] Adverse Reaction (Unknown, Verified 04/10/23 16:57) Dizziness, problems remembering Medication List - Last Reconciled 05/20/23 by Geoff Lucero MD apixaban (Eliquis) 5 mg PO BID aripiprazole (Abilify) 2 mg PO DAILY aripiprazole 5 mg PO DAILY ascorbic acid (vitamin C) (Vitamin C) 500 mg PO DAILY atorvastatin 40 mg PO BEDTIME buspirone 5 mg PO BID cholecalciferol (vitamin D3) (Vitamin D3) 25 mcg PO DAILY divalproex ER 500 mg PO BID ferrous fumarate (Ferrocite) 324 mg PO DAILY gabapentin 100 mg PO TID insulin glargine (Lantus Solostar U-100 Insulin) units subcut lancing device with lancets ([employer] Lancing Device kit) As directed levothyroxine 100 mcg PO DAILY@0600 loratadine 10 mg PO DAILY PRN meclizine 25 mg PO DAILY PRN metformin ER 500 mg PO BID metoprolol succinate ER 25 mg PO DAILY nystatin 1 mL buccal BID PRN 30 days oxybutynin chloride 5 mg PO BID pantoprazole 40 mg PO DAILY@0630 pen needle, diabetic (BD Flory 2nd Gen Pen Needle) As directed pen needle, diabetic (Easy Comfort Pen [place]) As directed injects 4 X/sday risperidone 2 mg PO BID HPI HPI Comments History of Present Illness Details Anu comes for follow-up. She was twice in the hospital recently in April with cold suspected to be due to COVID. She also in March was in the hospital with atypical chest pain in the precordial area turned out to be noncardiac. She has had no prolonged palpitation irregular heartbeat. No lightheadedness, syncope. No bleeding issues or neurologic events. No exertional chest pain or shortness of breath. [facility] Medical History (Updated 05/20/23 @ 14:10 by Geoff Lucero MD) PAF (paroxysmal atrial fibrillation) Vaginal pain Gait instability Hypertension Intertrigo Obesity (BMI 30-39.9) Bipolar disorder Anemia Allergic rhinitis Acquired hypothyroidism Pure hypercholesterolemia Diabetes mellitus GERD without esophagitis Pain of left lower extremity High bilirubin Hx of strabismus Hx of diabetes insipidus History of vitamin D deficiency Surgical History Hx of colonoscopy History of eye surgery History of left breast biopsy Hx of dilation and curettage Hx of cataract surgery (~07/2017) Family History Father History of cerebral hemorrhage Mother History of cerebral hemorrhage Sister Breast cancer Social History Household Members: Spouse Housing: Apartment Do you presently have visiting nurse or other home services: Yes Alcohol intake: never Patient Tobacco Use Status: Former Tobacco user Quit Date: 8yrs ago Years Smoked: 20 e-Cigarette/Vaping Use: Never Used Second Hand Smoke Exposure: Yes Advance Directives Date on File: 08/24/20 service: No Current occupational status: retired Cognitive needs: Yes (wheelchair) Hearing needs: No Vision needs: Yes (reading glasses) Review of Systems Const Denies chills, Denies fatigue, Denies fever(s), Denies frequent falls, Denies weakness, Denies weight gain and Denies weight loss ENT Denies dizziness Card Denies chest pain, Denies leg edema, Denies lightheadedness, Denies palpitations, Denies dyspnea, Denies dyspnea on exertion, Denies orthopnea and Denies other (loss of consciousness) Resp Denies cough, Denies dyspnea and Denies dyspnea on exertion GI Denies hematochezia and Denies change in stool character Musc Denies abnormal gait, Denies muscle weakness, Denies numbness, Denies radiating pain into limb and Denies tingling Neuro Denies abnormal gait, Denies dizziness, Denies frequent falls, Denies numbness, Denies tingling and Denies weakness Endo Denies fatigue and Denies palpitations Physical Exam Vital Signs: Last Vital Signs Pulse 66 05/20/23 13:48 BP 130/84 05/20/23 13:48 BMI result Body Mass Index 32.4 Const General: cooperative, comfortable, no acute distress and awake Nutritional Appearance: obese Orientation/consciousness: patient oriented x3 Limitations: ambulation with walker Neck Neck: Yes trachea midline, Yes supple and Yes no JVD Resp Effort & Inspection: normal respiratory effort Auscultation: diminished lung sounds Cardio Jugular venous distension: no JVD Palpation: normal PMI Rate: regular rate Rhythm: regular rhythm Heart sounds: S1 normal heart sound present and S2 normal heart sound present Skin General skin exam: no rashes or lesions noted Neuro General: patient oriented x3 and no focal motor deficits Extrem General: Yes no clubbing, cyanosis or edema Assessment & Plan Assessment & Plan (1) PAF (paroxysmal atrial fibrillation): Code(s): I48.0 - Paroxysmal atrial fibrillation Plan: Paroxysmal atrial fibrillation which has remained controlled with no overt recurrent symptoms at this point time. Continue rhythm control approach. Continue full oral anticoagulation, currently on Eliquis 5 mg b.i.d.. Importance of oral anticoagulation therapy was discussed. She understands agrees. Continue avoid stimulants. No indication for antiarrhythmic drug therapy at this point time. Blood pressure is well optimized. Will follow up in the clinic in 1 year's time, sooner p.r.n.. Thank you for allowing me to partake in her care Coding Level of Care Code Est Pt Level 4 (64929) Diagnoses PAF (paroxysmal atrial fibrillation) I48.0
== END 2023-05-20 14:12 | disposition home or self-care (01) ==
PROVIDERS: PCP Internal Medicine; Visit Provider Internal Medicine Cardiovascular Disease
DX: I48.0 Paroxysmal atrial fibrillation (principal)
CPT/HCPCS: 99214

== ENCOUNTER → 2023-05-20 13:46 | Outpatient (BNVA) | payer MEDICARE, SELFPAY | PROVIDERS: PCP Internal Medicine; Visit Provider Internal Medicine Cardiovascular Disease | DX: I48.0 Paroxysmal atrial fibrillation (principal) | CPT/HCPCS: 99212 ==

== ENCOUNTER 2023-06-12 07:55 | Outpatient (REF) | payer MEDICARE, SELFPAY ==
[2023-06-12 08:12] LABS: MANUAL DIFF FLAG NO
[2023-06-12 08:43] LABS: Basophils Percent Auto 0.3 % (0-2); Eosinophils Absolute Auto 0.1 X10*3/uL (0.0-0.4); Eosinophils Percent Auto 1.5 % (0-4); Hematocrit 39.7 % (37.0-47.0); Imm Gran Pct Auto 1.3 % (0.0-0.4); Lymphocytes Absolute Auto 2.7 X10*3/uL (1.2-4.9); Lymphocytes Percent Auto 33.4 % (20-40); Mean Corpuscular HGB Conc 32.7 g/dl (31.0-35.0); Mean Corpuscular Hemoglobin 32.1 pg (27.0-33.0); Mean Platelet Volume 8.8 fL (9.4-12.3); Monocytes Absolute Auto 0.6 X10*3/uL (0.1-1.2); Monocytes Percent Auto 6.9 % (2-11); Neutrophils Absolute Auto 4.5 x10*3/uL (2.0-8.3); Neutrophils Percent Auto 56.6 % (45-73); Platelet Count 231 X10*3/uL (160-400); Red Blood Count 4.05 X10*6/uL (4.20-5.50); Red Cell Distribution Width 13.8 % (11.0-16.0); White Blood Count 7.9 X10*3/uL (4.8-10.8)
[2023-06-12 08:50] LABS: Estimated Average Glucose 186 mg/dL; Hemoglobin A1c % 8.1 % (<6.0)
[2023-06-12 09:19] LABS: Alanine Aminotransferase 16 U/L (0-31); Albumin Level 3.9 g/dL (3.5-5.0); Alkaline Phosphatase 67 U/L (39-117); Anion Gap 12 (12-20); Aspartate Amino Transferase 15 U/L (5-31); Bilirubin Total 0.4 mg/dL (0.0-1.0); Blood Urea Nitrogen 14 mg/dL (9-16); Calcium 9.4 mg/dL (8.4-10.2); Carbon Dioxide 28 mmol/L (22-29); Chloride 102 mmol/L (96-108); Cholesterol 147 mg/dL (<200); Estimated Glomerular Filt Rate 58; Glucose Fasting 162 mg/dL (60-99); HDL Cholesterol 49 mg/dL (>40); LDL Cholesterol Calculated 68 mg/dL (<100); Potassium 4.1 mmol/L (3.3-5.1); Sodium 138 mmol/L (135-145); Total Protein 6.4 g/dL (6.5-8.0); Triglycerides 150 mg/dL (<150)
[2023-06-12 09:35] LABS: Free T4 (Free Thyroxine) 1.11 ng/dL (0.71-1.85); Thyroid Stimulating Hormone 6.74 uIU/mL (0.32-4.0); Vitamin D 25-OH Total 52.1 ng/mL (>30)
[2023-06-12 10:01] LABS: Appearance Urine Clear; Color Urine Yellow; Glucose Urine UA Negative (Negative); Leukocyte Esterase Urine Negative (Negative); Nitrite Urine Negative (Negative); Specific Gravity - Urine <= 1.005 (1.005-1.025); Urine Blood Negative (Negative); Urine Ketones Negative (Negative); Urine Protein Negative (Neg-Trace)
[2023-06-12 10:28] LABS: Microalbumin Urine < 5.0 mg/L
== END 2023-06-12 07:56 | disposition home or self-care (01) ==
LOC: HO.LAB 07:55
PROVIDERS: PCP Internal Medicine; Visit Provider Internal Medicine
DX: E11.9 Type 2 diabetes mellitus without complications (principal); R39.9 Unspecified symptoms and signs involving the genitourinary system; E78.00 Pure hypercholesterolemia, unspecified; E03.9 Hypothyroidism, unspecified; I10 Essential (primary) hypertension; E55.9 Vitamin D deficiency, unspecified; R30.0 Dysuria
CPT/HCPCS: 36415; 80053; 80061; 81003; 82043; 82306; 82570; 83036; 84439; 84443; 85025

== ENCOUNTER 2023-06-14 13:20 | Outpatient (AMB) | payer MEDICARE, SELFPAY ==
[2023-06-14 13:21] VITALS: BP 130/70; PULSE 55; O2SAT 98; BMI 33.6
--- NOTE | 2023-06-14 13:21 | MHC.PC.OV ---
Vital Signs 06/14/23 13:21 Height 5 ft 6 in Weight 208 lb BMI 33.6 BP 130/70 Blood Pressure Location Lt brachial Position Sitting Pulse 55 Pulse Source Pulse Oximeter Pulse Oximetry (%) 98 Oxygen Delivery Method Room Air Intake Visit Reasons: hyperlipidemia, DM, bipolar depression, TIA Corporate Training Manager Required: No Hearing Care Practitioner: Present Accompanied by: Allergies amoxicillin [Amoxicillin] Allergy (Intermediate, Verified 06/14/23 13:59) SWELLING, rash Sulfa (Sulfonamide Antibiotics) Allergy (Intermediate, Verified 06/14/23 13:59) itching & bruising codeine [CODEINE] Allergy (Unknown, Verified 06/14/23 13:59) RASH dicyclomine Allergy (Unknown, Verified 06/14/23 13:59) Unknown lidocaine [LIDOCAINE] Allergy (Unknown, Verified 06/14/23 13:59) UNKNOWN lithium [LITHIUM] Adverse Reaction (Severe, Verified 06/14/23 13:59) NEPHROGENIC DIABETES INSIPIDUS meclizine [Meclizine] Adverse Reaction (Intermediate, Verified 06/14/23 13:59) INCREASES DIZZINESS simvastatin [SIMVASTATIN] Adverse Reaction (Intermediate, Verified 06/14/23 13:59) MYALGIAS metronidazole [METRONIDAZOLE] Adverse Reaction (Mild, Verified 06/14/23 13:59) FLU LIKE SYMPTOMS acyclovir Adverse Reaction (Unknown, Verified 06/14/23 13:59) Unknown dulaglutide [From Trulicity] Adverse Reaction (Unknown, Verified 06/14/23 13:59) dizziness, tongue swollen semaglutide [From Ozempic] Adverse Reaction (Unknown, Verified 06/14/23 13:59) Dizziness, problems remembering Medication List - Last Reconciled 06/14/23 by Brown Dickson MD apixaban (Eliquis) 5 mg PO BID aripiprazole (Abilify) 2 mg PO DAILY aripiprazole 5 mg PO DAILY ascorbic acid (vitamin C) (Vitamin C) 500 mg PO DAILY atorvastatin 40 mg PO BEDTIME buspirone 5 mg PO BID cholecalciferol (vitamin D3) (Vitamin D3) 25 mcg PO DAILY divalproex ER 500 mg PO BID ferrous fumarate (Ferrocite) 324 mg PO DAILY gabapentin 100 mg PO TID insulin glargine (Lantus Solostar U-100 Insulin) units subcut lancing device with lancets ([employer] Lancing Device kit) As directed levothyroxine 100 mcg PO DAILY@0600 loratadine 10 mg PO DAILY PRN meclizine 25 mg PO DAILY PRN metformin ER 500 mg PO BID metoprolol succinate ER 25 mg PO DAILY nystatin 1 mL buccal BID PRN 30 days oxybutynin chloride 5 mg PO BID pantoprazole 40 mg PO DAILY@0630 pen needle, diabetic (BD Flory 2nd Gen Pen Needle) As directed pen needle, diabetic (Easy Comfort Pen [place]) As directed injects 4 X/sday risperidone 2 mg PO BID Tobacco use date assessed: 04/10/23 Fall risk assessment: No Falls in past year Last assessed Fall Risk: 06/14/23 Dental Screening Dental Screen Date: 06/14/23 Did you have a dental visit in the last 12 months?: Yes Did you have a dental problem in the last 6 months where you did not have access to dental care?: No Was dental information given to patient?: Patient has dentist HPI hyperlipidemia, DM, bipolar depression, TIA HPI Details Patient comes in today for her follow up visit States that she currently feels okay Was seen by cardiology for follow up a few weeks ago and she is reportedly doing very well with her atrial fibrillation, which has remained well-controlled She denies any headaches or dizziness Denies any chest pains, no SOB No nausea/vomiting, no abdominal pain No change in bowel habits noted - still has on and off constipation/loose stools but her bowel movements have been better controlled lately Still has trouble sleeping at night but her psychiatric issues/symptoms appear stable on her current med regimen - she continues to follow up with psychiatry regularly Had her follow up labs done a couple of days ago - to discuss her results [facility] Medical History PAF (paroxysmal atrial fibrillation) Vaginal pain Gait instability Hypertension Intertrigo Obesity (BMI 30-39.9) Bipolar disorder Anemia Allergic rhinitis Acquired hypothyroidism Pure hypercholesterolemia Diabetes mellitus GERD without esophagitis Pain of left lower extremity High bilirubin Hx of strabismus Hx of diabetes insipidus History of vitamin D deficiency Surgical History Hx of colonoscopy History of eye surgery History of left breast biopsy Hx of dilation and curettage Hx of cataract surgery (~07/2017) Family History Father History of cerebral hemorrhage Mother History of cerebral hemorrhage Sister Breast cancer Social History Household Members: Spouse Housing: Apartment Do you presently have visiting nurse or other home services: Yes Alcohol intake: never Patient Tobacco Use Status: Former Tobacco user Quit Date: 8yrs ago Years Smoked: 20 e-Cigarette/Vaping Use: Never Used Second Hand Smoke Exposure: Yes Advance Directives Date on File: 08/24/20 service: No Current occupational status: retired Cognitive needs: Yes (wheelchair) Hearing needs: No Vision needs: Yes (reading glasses) Questionnaire Thrive Questionnaire Date Thrive assessed: 04/10/23 SHANTA-7 AMB Questionnaire SHANTA-7 Date SHANTA - 7 assessed: 04/10/23 Source: Developed by Drs. Sean Hugo, Kathleen Lagunas, Oumar Boyd and colleagues, with an educational talha from [employer]. Review of Systems Const Denies chills, Reports difficulty sleeping, Reports fatigue, Denies fever(s) and Denies headache(s) ENT Denies dysphagia, Denies dizziness, Denies otalgia, Denies headache(s), Denies neck pain, Denies odynophagia and Denies sore throat Card Denies chest pain, Denies palpitations and Denies dyspnea Resp Denies cough, Denies dyspnea and Denies wheezing GI Denies abdominal pain, Reports constipation (on and off - better controlled lately), Denies dysphagia, Denies heartburn, Reports diarrhea (on and off), Denies nausea, Denies odynophagia and Denies vomiting Denies difficulty voiding, Denies nocturia, Denies dysuria and Denies urinary urgency Musc Reports abnormal gait (unsteady - uses a walker), Denies back pain, Denies arthralgias and Denies neck pain Neuro Reports abnormal gait (unsteady - uses a walker), Denies dizziness and Denies headache(s) Psych Denies anxiety Endo Reports fatigue and Denies palpitations Jt/Lymph Denies easy bruising Aller/Immun Denies wheezing Physical exam (Primary Care) Vital Signs: Last Vital Signs Pulse 55 06/14/23 13:21 BP 130/70 06/14/23 13:21 Pulse Ox 98 06/14/23 13:21 Oxygen Delivery Method Room Air 06/14/23 13:21 BMI result Body Mass Index 33.6 Tobacco/Smoking Status: Tobacco use Status Tobacco use date assessed 04/10/23 06/14/23 13:22 Patient Tobacco Use Status Former Tobacco user 06/14/23 13:22 e-Cigarette/Vaping Use Never Used 06/14/23 13:22 Thrive Assessment: Date of Thrive Assessment Date Thrive assessed 04/10/23 06/14/23 13:22 Const General: no acute distress and alert HENMT Throat: Yes posterior oropharynx normal and Yes tonsils normal (no TP congestion noted) Neck Neck: Yes no lymphadenopathy and Yes supple Resp Auscultation: clear to auscultation bilaterally, no rales and no wheezes Cardio Rate: regular rate Rhythm: regular rhythm Heart sounds: no murmurs GI Palpation (GI): Soft to palpation and nontender Auscultation: normal bowel sounds Extrem General: Yes no clubbing, cyanosis or edema Office Procedures Flu Questionnaire Does the patient have a severe egg allergy?: No Does the patient have severe life threatening allergies?: No Does the patient have a fever or illness today?: No Has the patient ever had Guillain-[place] Syndrome?: No Has the patient ever had any past reaction to a flu shot?: No Immunizations flu vacc [id number] 6mos up(PF) 60 mcg(15 mcgx4)/0.5 mL IM syringe Performing Provider: Brown Dickson MD [facility] Documented (not given) by: SOLO Hodges on 06/14/23 14:01 Reason Not Given: Not Given Results Reviewed Results Reviewed: Laboratory Tests 06/12/23 06/12/23 08:08 09:06 WBC 7.9 Hgb 13.0 Hct 39.7 Plt Count 231 D Fasting Glucose 162 H Hemoglobin A1c % 8.1 H Calcium 9.4 AST 15 ALT 16 Triglycerides 150 H Cholesterol 147 LDL Cholesterol, Calc 68 HDL Cholesterol 49 25-OH Vitamin D Total 52.1 TSH 6.74 H Free T4 1.11 Ur Specific [place] <= 1.005 Urine Protein Negative Urine Glucose (UA) Negative Urine Blood Negative Assessment and Plan Assessment & Plan (1) Diabetes mellitus: Code(s): E11.9 - Type 2 diabetes mellitus without complications Qualifiers: Diabetes mellitus type: type 2 Diabetes mellitus predatory animal exterminator insulin use: unspecified predatory animal exterminator insulin use status Diabetes mellitus complication status: without complication Qualified Code(s): E11.9 - Type 2 diabetes mellitus without complications Plan: HgbA1c was at 8.1% on her labs done a couple of days ago (was at 9.0% a few months ago) - goal is <7.0% Reinforced diabetic diet Continue Metformin ER 500 mg 1 tablet BID, Lantus Solostar 24 units Q HS and Trulicity 1.5 mg SQ once a week for now Follow up with endocrinology as scheduled (2) Pure hypercholesterolemia: Code(s): E78.00 - Pure hypercholesterolemia, unspecified Plan: Results of her labs done a couple of days ago reviewed and discussed with patient Reinforced low cholesterol diet Continue Atorvastatin 40 mg QD Will recheck her labs and fasting lipids in 3 months for follow up (3) Paroxysmal atrial fibrillation: Code(s): I48.0 - Paroxysmal atrial fibrillation Plan: Is currently in sinus rhythm Continue Metoprolol ER 25 mg QD Continue Eliquis 5 mg BID for thromboembolism prophylaxis Follow up with cardiology as scheduled - was just seen by cardiology a couple of weeks ago and was advised that she is doing very well (4) Brain TIA: Code(s): G45.9 - Transient cerebral ischemic attack, unspecified Plan: Occurred back in November 2022 and patient presented to the ER with sudden onset of left-sided weakness and left leg numbness Her symptoms gradually resolved while she was being evaluated in the ER CTA of the head and neck done came back negative She was seen by Neurology for follow-up a couple of months ago and was instructed to continue on Eliquis 5 mg BID as well as to continue risk factor modification (5) Acquired hypothyroidism: Code(s): E03.9 - Hypothyroidism, unspecified Plan: Continue Levothyroxine 100 mcg QD Will continue to monitor her TFTs regularly (6) GERD without esophagitis: Code(s): K21.9 - Gastro-esophageal reflux disease without esophagitis Plan: Dietary restrictions reinforced Continue Pantoprazole 40 mg QD (7) Allergic rhinitis: Code(s): J30.9 - Allergic rhinitis, unspecified Qualifiers: Allergic rhinitis trigger: unspecified Allergic rhinitis seasonality: unspecified Qualified Code(s): J30.9 - Allergic rhinitis, unspecified Plan: Continue Loratadine 10 mg QD PRN (8) Anemia: Code(s): D64.9 - Anemia, unspecified Qualifiers: Anemia type: unspecified type Qualified Code(s): D64.9 - Anemia, unspecified Plan: CORRECTED - her anemia was corrected/resolved on her labs done back in November 2022 and have remained normal on her recent labs Continue Ferrous fumarate 325 mg QD Will continue to monitor her CBC regularly (9) Gait instability: Code(s): R26.81 - Unsteadiness on feet Plan: Is currently ambulating well with a walker States that her gait has improved somewhat with physical therapy and we can refer her to PT again as needed (10) Bipolar disorder: Code(s): F31.9 - Bipolar disorder, unspecified Qualifiers: Active/Remission status: currently active Current bipolar episode type: mixed Current episode severity: unspecified Qualified Code(s): F31.60 - Bipolar disorder, current episode mixed, unspecified Plan: Continue Risperidone 2 mg twice a day, Divalproex ER 500 mg BID, Abilify 5 mg in AM and 2 mg at bedtime daily and Buspirone 5 mg BID Follow up with psychiatry as scheduled (11) Obesity (BMI 30-39.9): Code(s): E66.9 - Obesity, unspecified Plan: Reinforced diet; exercise and weight loss are unrealistic given patient's gait instability and multiple comorbidities Plan Follow up in 3 months Orders: Orders Influenza [id number] Immunization Today Z23 - Encounter for immunization Complete Blood Count Auto Diff 3 Months I10 - Essential (primary) hypertension Microalbumin, Random (w Creat) 3 Months E11.9 - Type 2 diabetes mellitus without complications UA CC w/rflx Micro + Cult 3 Months R30.0 - Dysuria Lipid Panel 3 Months E78.00 - Pure hypercholesterolemia, unspecified Comprehensive [place]. Panel Fast 3 Months E78.00 - Pure hypercholesterolemia, unspecified Hemoglobin A1c 3 Months E11.9 - Type 2 diabetes mellitus without complications TSH reflex Free T4 3 Months E78.00 - Pure hypercholesterolemia, unspecified Vitamin D 25-OH Total 3 Months E55.9 - Vitamin D deficiency, unspecified Coding Level of Care Code Est Pt Level 4 (67390) Diagnoses Type 2 diabetes mellitus without complication, unspecified whether predatory animal exterminator insulin use E11.9 Diabetes mellitus type: type 2 Diabetes mellitus predatory animal exterminator insulin use: unspecified correction insulin use status Diabetes mellitus complication status: without complication Pure hypercholesterolemia E78.00 Paroxysmal atrial fibrillation I48.0 Brain TIA G45.9 Acquired hypothyroidism E03.9 GERD without esophagitis K21.9 Allergic rhinitis, unspecified seasonality, unspecified trigger J30.9 Allergic rhinitis trigger: unspecified Allergic rhinitis seasonality: unspecified Anemia, unspecified type D64.9 Anemia type: unspecified type Gait instability R26.81 Bipolar affective disorder, current episode mixed, current episode severity unspecified F31.60 Active/Remission status: currently active Current bipolar episode type: mixed Current episode severity: unspecified Obesity (BMI 30-39.9) E66.9
== END 2023-06-14 14:00 | disposition home or self-care (01) ==
PROVIDERS: PCP Internal Medicine; Visit Provider Internal Medicine
DX: E11.9 Type 2 diabetes mellitus without complications (principal); I48.0 Paroxysmal atrial fibrillation; F31.60 Bipolar disorder, current episode mixed, unspecified; E78.00 Pure hypercholesterolemia, unspecified; G45.9 Transient cerebral ischemic attack, unspecified; E03.9 Hypothyroidism, unspecified; K21.9 Gastro-esophageal reflux disease without esophagitis; J30.9 Allergic rhinitis, unspecified; D64.9 Anemia, unspecified; R26.81 Unsteadiness on feet; E66.9 Obesity, unspecified
CPT/HCPCS: 99214

== ENCOUNTER 2023-09-24 09:01 | Outpatient (REF) | payer MEDICARE, SELFPAY ==
[2023-09-24 09:31] LABS: MANUAL DIFF FLAG NO
[2023-09-24 09:53] LABS: Basophils Percent Auto 0.4 % (0-2); Eosinophils Absolute Auto 0.2 X10*3/uL (0.0-0.4); Eosinophils Percent Auto 2.2 % (0-4); Hematocrit 41.7 % (37.0-47.0); Hematocrit 41.9 % (37.0-47.0); Hemoglobin 13.3 g/dl (12.0-16.0); Hemoglobin 13.5 g/dl (12.0-16.0); Imm Gran Abs Auto 0.06 X10*3/uL (0.00-0.03); Imm Gran Pct Auto 0.8 % (0.0-0.4); Lymphocytes Absolute Auto 2.9 X10*3/uL (1.2-4.9); Lymphocytes Percent Auto 39.3 % (20-40); Mean Corpuscular HGB Conc 31.9 g/dl (31.0-35.0); Mean Corpuscular HGB Conc 32.2 g/dl (31.0-35.0); Mean Corpuscular Hemoglobin 31.7 pg (27.0-33.0); Mean Corpuscular Hemoglobin 31.9 pg (27.0-33.0); Mean Corpuscular Volume 99.1 fL (80.0-98.0); Mean Corpuscular Volume 99.3 fL (80.0-98.0); Mean Platelet Volume 8.8 fL (9.4-12.3); Monocytes Absolute Auto 0.4 X10*3/uL (0.1-1.2); Monocytes Percent Auto 5.7 % (2-11); Monocytes Percent Auto 5.8 % (2-11); Neutrophils Absolute Auto 3.8 x10*3/uL (2.0-8.3); Neutrophils Percent Auto 51.5 % (45-73); Neutrophils Percent Auto 51.6 % (45-73); Platelet Count 206 X10*3/uL (160-400); Platelet Count 213 X10*3/uL (160-400); Red Blood Count 4.23 X10*6/uL (4.20-5.50); Red Cell Distribution Width 13.4 % (11.0-16.0); Red Cell Distribution Width 13.5 % (11.0-16.0); White Blood Count 7.4 X10*3/uL (4.8-10.8)
[2023-09-24 10:20] LABS: Valproate 25.5 mcg/mL (50.0-100.0)
[2023-09-24 10:39] LABS: Appearance Urine Clear; Color Urine Yellow; Glucose Urine UA Negative (Negative); Leukocyte Esterase Urine Trace (Negative); Nitrite Urine Negative (Negative); PH 5.5 (5.0-9.0); UMIC TRIGGER UACC YES; Urine Blood Negative (Negative); Urine Ketones Negative (Negative); Urine Protein Negative (Neg-Trace)
[2023-09-24 10:55] LABS: Bacteria Urine Trace (None Seen); Hyaline Casts Urine 0-2 /LPF (0-2); RBC Urine 0-2 /HPF (0-2); WBC Urine 0-5 /HPF (0-5)
[2023-09-24 11:17] LABS: Alanine Aminotransferase 16 U/L (0-31); Alkaline Phosphatase 67 U/L (39-117); Anion Gap 13 (12-20); Aspartate Amino Transferase 13 U/L (5-31); Bilirubin Total 0.5 mg/dL (0.0-1.0); Blood Urea Nitrogen 10 mg/dL (9-16); Calcium 9.3 mg/dL (8.4-10.2); Carbon Dioxide 29 mmol/L (22-29); Chloride 106 mmol/L (96-108); Cholesterol 121 mg/dL (<200); Estimated Glomerular Filt Rate 54; Glucose Fasting 162 mg/dL (60-99); HDL Cholesterol 43 mg/dL (>40); LDL Cholesterol Calculated 54 mg/dL (<100); Potassium 4.3 mmol/L (3.3-5.1); Sodium 144 mmol/L (135-145); Total Protein 7.2 g/dL (6.5-8.0); Triglycerides 121 mg/dL (<150)
[2023-09-24 11:34] LABS: Alanine Aminotransferase 16 U/L (0-31); Alkaline Phosphatase 67 U/L (39-117); Anion Gap 12 (12-20); Aspartate Amino Transferase 13 U/L (5-31); Bilirubin Total 0.5 mg/dL (0.0-1.0); Blood Urea Nitrogen 10 mg/dL (9-16); Calcium 9.3 mg/dL (8.4-10.2); Carbon Dioxide 29 mmol/L (22-29); Chloride 106 mmol/L (96-108); Estimated Glomerular Filt Rate 53; Glucose Random 165 mg/dL (60-115); Potassium 4.3 mmol/L (3.3-5.1); Sodium 143 mmol/L (135-145); Total Protein 7.3 g/dL (6.5-8.0)
[2023-09-24 11:38] LABS: TSH reflex Free T4 7.46 uIU/mL (0.32-4.0); Vitamin D 25-OH Total 48.4 ng/mL (>30)
[2023-09-24 11:46] LABS: Creatinine Urine 150.98 mg/dL; Microalbum/Creatinine Ratio Ur 6.6 ug/mg cr (<30)
[2023-09-24 12:08] LABS: Free T4 (Free Thyroxine) 1.03 ng/dL (0.71-1.85)
[2023-09-24 12:17] LABS: Estimated Average Glucose 226 mg/dL; Hemoglobin A1c % 9.5 % (<6.0)
== END 2023-09-24 09:02 | disposition home or self-care (01) ==
LOC: HO.LABR 09:01
PROVIDERS: PCP Internal Medicine; Visit Provider Clinical Nurse Specialist Psychiatric/Mental Health, Adult
DX: E11.9 Type 2 diabetes mellitus without complications (principal); I10 Essential (primary) hypertension; E55.9 Vitamin D deficiency, unspecified; E78.00 Pure hypercholesterolemia, unspecified; R30.0 Dysuria; Z79.899 Other long term (current) drug therapy
CPT/HCPCS: 36415; 80053; 80061; 80164; 81001; 82043; 82306; 82570; 83036; 84439; 84443; 85025

== ENCOUNTER 2023-12-05 11:02 | Outpatient (AMB) | payer MEDICARE, SELFPAY ==
[2023-12-05 11:06] VITALS: BP 130/62; PULSE 59; O2SAT 93; BMI 33.9
--- NOTE | 2023-12-05 11:06 | MHC.PC.OV ---
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 Allergies amoxicillin [Amoxicillin] Allergy (Intermediate, Verified 12/05/23 12:26) SWELLING, rash Sulfa (Sulfonamide Antibiotics) Allergy (Intermediate, Verified 12/05/23 12:26) itching & bruising codeine [CODEINE] Allergy (Unknown, Verified 12/05/23 12:) RASH dicyclomine Allergy (Unknown, Verified 12/05/23 12:) Unknown lidocaine [LIDOCAINE] Allergy (Unknown, Verified 12/05/23 12:) UNKNOWN lithium [LITHIUM] Adverse Reaction (Severe, Verified 12/05/23 12:) NEPHROGENIC DIABETES INSIPIDUS meclizine [Meclizine] Adverse Reaction (Intermediate, Verified 12/05/23 12:26) INCREASES DIZZINESS simvastatin [SIMVASTATIN] Adverse Reaction (Intermediate, Verified 12/05/23 12:26) MYALGIAS metronidazole [METRONIDAZOLE] Adverse Reaction (Mild, Verified 12/05/23 12:26) FLU LIKE SYMPTOMS acyclovir Adverse Reaction (Unknown, Verified 12/05/23 12:26) Unknown dulaglutide [From Trulicity] Adverse Reaction (Unknown, Verified 12/05/23 12:26) dizziness, tongue swollen semaglutide [From Ozempic] Adverse Reaction (Unknown, Verified 12/05/23 12:26) Dizziness, problems remembering Medication List - Last Reconciled 12/06/23 by Brown Dickson MD apixaban (Eliquis) 5 mg PO BID aripiprazole 5 mg PO DAILY ascorbic acid (vitamin C) (Vitamin C) 500 mg PO DAILY atorvastatin 40 mg PO DAILY buspirone 5 mg PO BID cholecalciferol (vitamin D3) (Vitamin D3) 25 mcg PO DAILY divalproex ER 500 mg PO BID ferrous fumarate (Ferrocite) 324 mg PO DAILY gabapentin 100 mg PO TID insulin glargine (Lantus Solostar U-100 Insulin) 24 units (0.24 mL) subcut QPM lancing device with lancets ([employer] Lancing Device kit) As directed levothyroxine 100 mcg PO DAILY linagliptin (Tradjenta) 5 mg PO DAILY loratadine 10 mg PO DAILY PRN lorazepam 1 mg PO BID PRN meclizine 25 mg PO DAILY PRN metformin ER 500 mg PO BID metoprolol succinate ER 25 mg PO DAILY nystatin 1 mL buccal BID PRN 30 days nystatin 1 appl topical BID oxybutynin chloride 5 mg PO BID pantoprazole 40 mg PO DAILY@0630 pen needle, diabetic (BD Flory 2nd Gen Pen Needle) DIRECTED INJECTS 4 X/SDAY pen needle, diabetic (Easy Comfort Pen [place]) As directed injects 4 X/sday perphenazine 4 mg PO QAM risperidone 2 mg PO BID Tobacco use date assessed: 12/05/23 Fall risk assessment: No Falls in past year Last assessed Fall Risk: 12/05/23 Dental Screening Dental Screen Date: 12/05/23 Did you have a dental visit in the last 12 months?: No Did you have a dental problem in the last 6 months where you did not have access to dental care?: No HPI Diabetes F/U HPI Details Patient comes in today for her follow up visit - was last seen in May 2023 and thinks that she missed her appointment back in September 2023 States that she currently feels okay She denies any headaches or dizziness Denies any chest pains, no SOB No nausea/vomiting, no abdominal pain No change in bowel habits noted She did have her follow up labs done back in September 2023 [facility] Medical History PAF (paroxysmal atrial fibrillation) Vaginal pain Gait instability Hypertension Intertrigo Obesity (BMI 30-39.9) Bipolar disorder Anemia Allergic rhinitis Acquired hypothyroidism Pure hypercholesterolemia Diabetes mellitus GERD without esophagitis Pain of left lower extremity High bilirubin Hx of strabismus Hx of diabetes insipidus History of vitamin D deficiency Surgical History Hx of colonoscopy History of eye surgery History of left breast biopsy Hx of dilation and curettage Hx of cataract surgery (~07/2017) Family History Father History of cerebral hemorrhage Mother History of cerebral hemorrhage Sister Breast cancer Social History Household Members: Spouse Housing: Apartment Do you presently have visiting nurse or other home services: Yes Alcohol intake: never Patient Tobacco Use Status: Former Tobacco user Years Smoked: 20 e-Cigarette/Vaping Use: Never Used Second Hand Smoke Exposure: Yes Advance Directives Date on File: 08/24/20 service: No Current occupational status: retired Cognitive needs: Yes (wheelchair) Hearing needs: No Vision needs: Yes (reading glasses) Questionnaire PHQ-9 Over the last 2 weeks, how often have you been bothered by any of the following problems? 1. Little interest or pleasure in doing things: not at all 2. Feeling down, depressed, or hopeless: several days (family passing ) 3. Trouble falling or staying asleep, or sleeping too much: not at all 4. Feeling tired or having little energy: not at all 5. Poor appetite or overeating: not at all 6. Feeling bad about yourself - or that you are a failure or have let yourself or your family down: not at all 7. Trouble concentrating on things, such as reading the newspaper or watching television: not at all 8. Moving or speaking so slowly that other people could have noticed. Or the opposite - being so fidgety or restless that you have been moving around a lot more than usual: not at all 9. Thoughts that you would be better off or of hurting yourself in some way: not at all Total score: 1 Depression Screening Interpretation: Negative (is on multiple psych Rx) Depression Screening Done: Yes 10050 - PHQ-9 Billing: Yes Source: Developed by Drs. Sean Hugo, Kathleen Lagunas, Oumar Boyd and colleagues, with an educational talha from [employer]. Thrive Questionnaire Date Thrive assessed: 12/05/23 I am a: Patient What is your living situation today?: I have a steady place to live Within the past 12 months, did the food you bought not last and you didn't have the money to get more?: Never true Within the past 12 months, did you worry whether your food would run out before you got money to buy more?: Never true Do you have trouble paying for medicines?: No Do you have trouble getting transportation to medical appointments?: No Do you have trouble paying your heating and electricity bill?: No Do you have trouble taking care of your child, family member or friend?: No Do you have trouble with day-to-day activities such as bathing, preparing meals, shopping, managing finances, etc.?: No Are you currently unemployed and looking for a job?: No Are you interested in more education?: No Please select the resources that you would like help with: None Currently or been in a relationship where the following occur: no concerns reported THRIVE Score: 0 AUDIT C Alcohol Use Questionnaire (AUDIT-C) 1. How often do you have a drink containing alcohol?: Never 3. How often do you have six or more drinks on one occasion?: Never Total Score: 0 Score Reviewed/Action Taken: Yes SHANTA-7 AMB Questionnaire SHANTA-7 Date SHANTA - 7 assessed: 12/05/23 (family passing ) Feeling nervous, anxious, or on edge: 1 = Several days Not being able to stop or control worryin = Not at all Worrying too much about different things: 0 = Not at all Trouble relaxin = Not at all Being so restless that it is hard to sit still: 0 = Not at all Becoming easily annoyed or irritable: 0 = Not at all Feeling afraid as if something awful might happen: 0 = Not at all Total SHANTA-7 score (0-4 normal; 5-9 mild; 10-14 moderate; 15-21 severe): 1 Source: Developed by Drs. Sean Hugo, Kathleen Lagunas, Oumar Boyd and colleagues, with an educational talha from [employer]. SHATNA-7 Assessment Billing SHANTA-7 Assessment Tool: SHANTA-7 Assessment 22354 Review of Systems Const Denies chills, Denies fatigue, Denies fever(s) and Denies headache(s) ENT Denies dysphagia, Denies dizziness, Denies otalgia, Denies headache(s), Denies neck pain, Denies odynophagia and Denies sore throat Card Denies chest pain, Denies palpitations and Denies dyspnea Resp Denies cough, Denies dyspnea and Denies wheezing GI Denies abdominal pain, Reports constipation (on and off - better controlled lately), Denies dysphagia, Denies heartburn, Reports diarrhea (on and off), Denies nausea, Denies odynophagia and Denies vomiting Denies difficulty voiding, Denies nocturia, Denies dysuria and Denies urinary urgency Musc Reports abnormal gait (unsteady - uses a walker), Denies back pain, Denies arthralgias and Denies neck pain Skin/Breast Denies rash Neuro Reports abnormal gait (unsteady - uses a walker), Denies dizziness and Denies headache(s) Psych Denies anxiety Endo Denies fatigue and Denies palpitations Jt/Lymph Denies easy bruising Aller/Immun Denies wheezing Physical exam (Primary Care) Vital Signs: Last Vital Signs Pulse 59 12/05/23 11:06 BP 130/62 12/05/23 11:06 Pulse Ox 93 12/05/23 11:06 Oxygen Delivery Method Room Air 12/05/23 11:06 BMI result Body Mass Index 33.9 Tobacco/Smoking Status: Tobacco use Status Tobacco use date assessed 12/05/23 12/05/23 11:07 Patient Tobacco Use Status Former Tobacco user 12/05/23 11:07 e-Cigarette/Vaping Use Never Used 12/05/23 11:07 PHQ-9: PHQ-9 Score PHQ-9: Total score 1 12/05/23 12:34 Depression Screening Interpretation: Negative (is on multiple psych Rx) Thrive Assessment: Date of Thrive Assessment Date Thrive assessed 12/05/23 12/05/23 12:34 Currently or been in a relationship where the following occur: no concerns reported Const General: no acute distress and alert HENMT Throat: Yes posterior oropharynx normal and Yes tonsils normal (no TP congestion noted) Neck Neck: Yes no lymphadenopathy and Yes supple Thyroid: Thyroid normal Resp Auscultation: clear to auscultation bilaterally, no rales and no wheezes Cardio Rate: regular rate Rhythm: regular rhythm Heart sounds: no murmurs GI Palpation (GI): Soft to palpation and nontender Auscultation: normal bowel sounds General: Yes no CVA tenderness Back/Spine/Pelvis Back: no CVA tenderness Skin Rashes: no rashes Extrem General: Yes no clubbing, cyanosis or edema Results AMB Hemoglobin A1c AMB Hemoglobin A1c 8.5 % Last Edit by SOLO Olmstead on 12/05/23 12:35 Results Reviewed Results Reviewed: Laboratory Last Values Hgb A1c (Clinic) 8.5 % (4.0-6.0) H 12/05/23 12:33 Laboratory Tests 09/24/23 09/24/23 09:30 09:50 WBC 7.4 Hgb 13.5 Hct 41.9 Plt Count 213 Sodium 143 Potassium 4.3 Creatinine 1.01 Estimated GFR 53 Fasting Glucose 162 H Estimat Average Glucose 226 Hemoglobin A1c % 9.5 H Calcium 9.3 AST 13 ALT 16 Triglycerides 121 Cholesterol 121 LDL Cholesterol, Calc 54 HDL Cholesterol 43 TSH 7.46 H Free T4 1.03 Ur Specific [place] 1.020 Urine Protein Negative Urine Glucose (UA) Negative Urine Blood Negative Urine Nitrite Negative Ur Leukocyte Esterase Trace H Microalb/Creat Ratio 6.6 Assessment and Plan Assessment & Plan (1) Diabetes mellitus: Code(s): E11.9 - Type 2 diabetes mellitus without complications Qualifiers: Diabetes mellitus complication status: without complication 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 half-way insulin use status Diabetes mellitus type: type 2 Qualified Code(s): E11.9 - Type 2 diabetes mellitus without complications Plan: Her in-office HgbA1c today is at 8.5% (HgbA1c was at 9.5% on her labs done a couple of months ago in September 2023) - goal is <7.0% Reinforced diabetic diet Continue Metformin ER 500 mg 1 tablet BID, Lantus Solostar 24 units Q HS and Tradjenta 5 mg QD Patient states that she stopped taking her Trulicity 1.5 mg SQ once a week a few months ago as the Rx was making her feel very nauseous We tried switching her over to Ozempic but she did not tolerate the Rx as well Follow up with endocrinology as scheduled (2) Pure hypercholesterolemia: Code(s): E78.00 - Pure hypercholesterolemia, unspecified Plan: Results of her labs done a couple of months ago reviewed and discussed with patient Reinforced low cholesterol diet Continue Atorvastatin 40 mg QD Will recheck her labs and fasting lipids in 3 months for follow up (3) Paroxysmal atrial fibrillation: Code(s): I48.0 - Paroxysmal atrial fibrillation Plan: Patient is currently in sinus rhythm Continue Metoprolol ER 25 mg QD Continue Eliquis 5 mg BID for thromboembolism prophylaxis Follow up with cardiology as scheduled (4) Brain TIA: Code(s): G45.9 - Transient cerebral ischemic attack, unspecified Plan: This occurred back in November 2022 when patient presented to the ER with sudden onset of left-sided weakness and left leg numbness Her symptoms gradually resolved while she was being evaluated in the ER CTA of the head and neck done came back negative She was seen by Neurology for follow-up a couple of months later and was instructed to continue on Eliquis 5 mg BID as well as to continue risk factor modification (5) Acquired hypothyroidism: Code(s): E03.9 - Hypothyroidism, unspecified Plan: Her serum TSH was elevated but her free T4 was normal on her labs done back in September 2023 Continue Levothyroxine 100 mcg QD Will continue to monitor her TFTs regularly (6) GERD without esophagitis: Code(s): K21.9 - Gastro-esophageal reflux disease without esophagitis Plan: Dietary restrictions reinforced Continue Pantoprazole 40 mg QD (7) Allergic rhinitis: Code(s): J30.9 - Allergic rhinitis, unspecified Qualifiers: Allergic rhinitis seasonality: unspecified Allergic rhinitis trigger: unspecified Qualified Code(s): J30.9 - Allergic rhinitis, unspecified Plan: Continue Loratadine 10 mg QD PRN (8) Anemia: Code(s): D64.9 - Anemia, unspecified Qualifiers: Anemia type: unspecified type Qualified Code(s): D64.9 - Anemia, unspecified Plan: CORRECTED - her anemia was corrected/resolved on her labs done back in November 2022 and have remained normal on her recent labs Continue Ferrous fumarate 325 mg QD Will continue to monitor her CBC regularly (9) Gait instability: Code(s): R26.81 - Unsteadiness on feet Plan: She is currently ambulating reasonably well with a walker States that her gait has improved somewhat with physical therapy and we can refer her to PT again as needed (10) Bipolar disorder: Code(s): F31.9 - Bipolar disorder, unspecified Qualifiers: Active/Remission status: currently active Current bipolar episode type: mixed Current episode severity: unspecified Qualified Code(s): F31.60 - Bipolar disorder, current episode mixed, unspecified Plan: Continue Risperidone 2 mg BID, Divalproex ER 500 mg BID, Abilify 5 mg in AM, Buspirone 5 mg BID, Lorazepam 1 mg BID, Gabapentin 100 mg TID and Perphenazine 4 mg Q AM Follow up with psychiatry as scheduled (11) Obesity (BMI 30-39.9): Code(s): E66.9 - Obesity, unspecified Plan: Reinforced diet; exercise and weight loss are unrealistic given patient's gait instability and multiple comorbidities Plan To return as scheduled on 03/17/2024 for her annual physical examination Orders: Orders Complete Blood Count Auto Diff 3 Months D64.9 - Anemia, unspecified Comprehensive [place]. Panel Fast 3 Months E78.00 - Pure hypercholesterolemia, unspecified Lipid Panel 3 Months E78.00 - Pure hypercholesterolemia, unspecified Thyroid Stimulating Hormone 3 Months E03.9 - Hypothyroidism, unspecified Vitamin D 25-OH Total 3 Months E55.9 - Vitamin D deficiency, unspecified UA CC w/rflx Micro + Cult 3 Months R30.0 - Dysuria Microalbumin, Random (w Creat) 3 Months E11.9 - Type 2 diabetes mellitus without complications AMB Hemoglobin A1c 06/20/24 E11.9 - Type 2 diabetes mellitus without complications Hemoglobin A1c 3 Months E11.9 - Type 2 diabetes mellitus without complications Free T4 (Free Thyroxine) 3 Months E03.9 - Hypothyroidism, unspecified Vitamin B12 and Folate 3 Months E53.8 - Deficiency of other specified B group vitamins Coding Level of Care Code Est Pt Level 4 (82089) Complex EM visit Add On G2211 Diagnoses Type 2 diabetes mellitus without complication, unspecified 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 Diabetes mellitus complication status: without complication Diabetes mellitus half-way insulin use: unspecified 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 Diabetes mellitus type: type 2 Pure hypercholesterolemia E78.00 Paroxysmal atrial fibrillation I48.0 Brain TIA G45.9 Acquired hypothyroidism E03.9 GERD without esophagitis K21.9 Allergic rhinitis, unspecified seasonality, unspecified trigger J30.9 Allergic rhinitis seasonality: unspecified Allergic rhinitis trigger: unspecified Anemia, unspecified type D64.9 Anemia type: unspecified type Gait instability R26.81 Bipolar affective disorder, current episode mixed, current episode severity unspecified F31.60 Active/Remission status: currently active Current bipolar episode type: mixed Current episode severity: unspecified Obesity (BMI 30-39.9) E66.9 Additional Codes SHANTA-7 Assessment Billing - SHANTA-7 Assessment Tool: SHANTA-7 Assessment 60452 ([id number])
== END 2023-12-05 12:40 | disposition home or self-care (01) ==
PROVIDERS: PCP Internal Medicine; Visit Provider Internal Medicine
DX: E11.9 Type 2 diabetes mellitus without complications (principal)
CPT/HCPCS: 83036; 99214; G2211

== ENCOUNTER 2024-01-19 21:36 | Inpatient (IN) | payer MEDICARE, SELFPAY ==
--- NOTE | ~2024-01-19 | XR_ITS ---
EXAMINATION: XR LUMBOSACRAL SPINE CLINICAL INFORMATION: Low back pain COMPARISON: 03/24/2017 TECHNIQUE: Three views of the lumbosacral spine. FINDINGS: There is grade 1 anterolistheses of L4 on L5, favored to be chronic/degenerative in nature in the setting of severe lower lumbar facet arthropathy. There is slight loss of height in the superior endplate of L1 which is age-indeterminate. Remaining vertebral body heights are maintained. Severe disc space narrowing at L5-S1, while remaining intervertebral disc spaces are relatively well-preserved. Sacroiliac joints appear intact with degenerative change. There is atherosclerotic calcification along the aorta. XR/XR lumbar spine 2-3V IMPRESSION: 1. Slight loss of height in the superior endplate of L1, age-indeterminate. 2. Grade 1 anterolistheses of L4 on L5, favored to be chronic/degenerative in nature in the setting of severe lower lumbar facet arthropathy.
--- NOTE | ~2024-01-19 | XR_ITS ---
EXAMINATION: XR CHEST CLINICAL INFORMATION: Shortness of breath COMPARISON: 05/03/2023 TECHNIQUE: Frontal view of the chest was obtained. FINDINGS: Lung volumes are symmetric. No focal consolidation is seen. No evidence of pneumothorax, significant pleural effusion, or overt pulmonary edema. Cardiac size is within normal limits. There is new soft tissue attenuation in the right paratracheal region, suspicious for a mediastinal mass. No acute osseous findings are seen. XR/XR chest 1V IMPRESSION: New soft tissue attenuation in the right paratracheal region, suspicious for a mediastinal mass. Contrast-enhanced CT has already been ordered for further evaluation
--- NOTE | ~2024-01-19 | CT_ITS ---
EXAMINATION: CT ABDOMEN AND PELVIS WITH CONTRAST CLINICAL INFORMATION: Metastatic lung cancer. Evaluate for abdominal/bone metastases. COMPARISON: CT scan of the chest dated 01/19/2024. CT scan of the abdomen and pelvis dated 03/24/2017. TECHNIQUE: Multidetector CT volumetric acquisition of the abdomen and pelvis was performed after the administration of 900 mL of oral contrast and 85 mL of intravenous Omnipaque 350. The data set was reformatted in the sagittal and coronal planes and reviewed on an independent workstation. This CT examination was performed using dose optimization techniques as appropriate, variously including the following: *Automated exposure control *Adjustment of mA and/or kV according to patient size (this includes techniques or standardized protocols for targeted exams where dose is matched to indication/reason for exam; i.e. extremities or head) *Use of iterative reconstruction technique DLP: 1045 mGy-cm. FINDINGS: LOWER CHEST: Coronary artery calcifications and aortic calcifications noted. Small right pleural effusion. The recent CT of the chest demonstrated 2 x 1.4 cm pleural-based mass with internal coarse calcifications is again seen in the posterior medial left lower lobe, slowly progressive in size when compared to older exams dating back to 04/24/2018. LIVER, GALLBLADDER, BILIARY TREE: Liver normal size and attenuation. There is a 1 x 0.8 cm low-attenuation mass in the hepatic dome, segment 7 (series 3, image 14), not seen on the prior exam and higher than fluid density. No intra-or extrahepatic ductal dilatation. Hepatic and portal veins patent. Gallbladder well distended. There is layering thickened bile/sludge within the gallbladder. Gallbladder otherwise unremarkable. PANCREAS: The pancreas is markedly atrophic with multiple pancreatic calcifications seen, largest of which measures 1.8 x 1 cm in the pancreatic head. Pancreatic ductal dilatation is seen, measuring up to 0.6 cm. No focal pancreatic mass or peripancreatic fluid collection/edema. SPLEEN: Normal size and appearance. Splenic vein patent. ADRENAL GLANDS AND KIDNEYS: Adrenal glands normal. Kidneys bilaterally symmetric in size and function. There is a 0.6 cm mid left renal cyst, for which no imaging follow-up is recommended. There are 2 punctate nonobstructing calcifications in the lower pole of the right kidney with pixel attenuation values extending up to 294 Hounsfield units. Pelvic right renal cyst in the lower pole is noted No focal mass, hydronephrosis, nephrolithiasis or perinephric stranding. URETERS AND BLADDER: Ureters decompressed and within normal limits. Bladder markedly distended and otherwise unremarkable. PELVIC ORGANS: Unremarkable. GASTROINTESTINAL TRACT: Normal. Small and large bowel loops decompressed. Appendix in right lower quadrant normal. LYMPHOVASCULAR STRUCTURES: Abdominal aorta normal in caliber. Dense atherosclerotic calcifications of the aorta are noted. No periaortic collections. No abdominal or pelvic adenopathy or free fluid collection. BONES: Mild superior endplate compression deformity of the L1 vertebral body is seen, new from 03/24/2017. There is mild degenerative disc disease at L4-L5 with vacuum disc phenomenon seen. There is severe degenerative disc disease at the lumbosacral junction with complete loss of the disc space and vertebral endplate sclerosis and spurring. Moderate facet arthropathy is seen in the mid and lower lumbar spine. Subtle irregularity of the anterolateral right ninth and eighth ribs is seen, consistent with old healed fracture deformity. CT/CT abdomen pelvis w IV con IMPRESSION: 1. No evidence of metastatic disease to the abdomen or pelvis. 2. Small 1 x 0.8 cm low-attenuation mass in the hepatic dome, not seen on prior exam. Given the patient's history of newly diagnosed lung cancer, further assessment with MRI scan of the abdomen with and without contrast is recommended to exclude metastatic disease. 3. Small right pleural effusion. 4. Slowly progressive increase in size of pleural-based mass in the posterior medial left lower lobe. Given the slow rate of change, a indolent etiology is suspected, perhaps a fibrous tumor of the pleura. Continued attention on follow-up imaging is recommended. 5. Markedly atrophic pancreas with multiple pancreatic calcifications and pancreatic ductal dilatation. 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 6. Nonobstructing lower pole right renal calculi. 7. Extensive atherosclerotic vascular disease. 8. Mild superior endplate compression deformity of the L1 vertebral body, new from 03/24/2017.
--- NOTE | ~2024-01-19 | XR_ITS ---
EXAMINATION: XR HIP, LEFT CLINICAL INFORMATION: Left hip pain COMPARISON: 03/24/2017 TECHNIQUE: Two views of the left hip. AP pelvis. FINDINGS: Alignment across the hips is anatomic bilaterally. Mild joint space narrowing in the hips, slightly worse on the right than the left. No acute fracture is seen. Sacroiliac joints and pubic symphysis appear intact. XR/XR hip LT w PEL1V IMPRESSION: No acute findings identified. Degenerative changes of the hips, right greater than left.
--- NOTE | ~2024-01-19 | CT_ITS ---
EXAMINATION: CT CHEST WITH CONTRAST CLINICAL INFORMATION: Reason for Exam Mediastinal mass/thymoma COMPARISON: Multiple priors including chest x-ray from the same day, CT 08/24/2020 TECHNIQUE: Multidetector volumetric CT imaging of the chest was obtained after the administration of 50 mL of Omnipaque 350 intravenous contrast without immediate adverse reactions. Axial MIP volume rendering provided. Sagittal and coronal reformatted images were obtained. This CT examination was performed using dose optimization techniques as appropriate, variously including the following: *Automated exposure control *Adjustment of mA and/or kV according to patient size (this includes techniques or standardized protocols for targeted exams where dose is matched to indication/reason for exam; i.e. extremities or head) *Use of iterative reconstruction technique 100 DLP: 398 mGy-cm FINDINGS: LUNGS: There is an irregularly-shaped focal masslike opacity in the anterior apical right upper lobe measuring approximately 2.8 x 2.6 cm on image 105/508. This is new since 08/24/2020 and is concerning for malignancy, though focal infection could potentially have a similar appearance. A nearby subpleural nodule measuring 6 mm on image 121/508 is also new from prior. There is a posterior left lower lobe nodule abutting the pleura measuring approximately 1.5 x 1.3 cm in the axial plane and up to 2.4 cm in craniocaudal dimension. Internal calcification is noted. This is a chronic finding and was present on prior examinations including 04/24/2018, favoring a benign etiology. MEDIASTINUM: There is a right paratracheal mediastinal mass measuring approximately 3.8 x 3.7 cm in the axial plane and 5.4 cm in craniocaudal dimension, suspicious for metastatic lymphadenopathy versus primary neoplasm. Cardiac size is within normal limits; no pericardial effusion. Coronary artery calcifications are present. There is atherosclerotic calcification along the aorta. PLEURA: Mass along the anterior right pleura on image 257/508 measures approximately 2.3 x 1.1 cm. There is an additional anterior right pleural mass measuring 1.4 x 0.8 cm on image 213. Additional soft tissue nodule to the right of the lower thoracic spine measuring up to 2.3 cm on coronal image 61 is suspicious for an additional pleural nodule. These are new from prior and suspicious for metastatic lesions given the additional intrathoracic findings. Trace right pleural effusion. No pneumothorax. AXILLA: No lymphadenopathy. UPPER ABDOMEN: Unremarkable OSSEOUS STRUCTURES: Degenerative changes are noted in the spine. Slight superior endplate height loss in L1 is age indeterminate. CT/CT chest w IV con IMPRESSION: 1. Right paratracheal mediastinal mass measuring up to 5.4 cm, suspicious for metastatic disease given the pulmonary findings described below, or potentially a primary neoplasm such as lymphoma. Further workup recommended which may include tissue sampling. 2. Focal masslike opacity in the anterior apical right upper lobe measuring up to 2.8 cm, concerning for malignancy such as primary lung cancer. Further workup with tissue sampling is recommended. A nearby subpleural nodule measuring 6 mm is suspicious for satellite nodule. 3. Multiple right pleural masses, suspicious for metastatic disease. 4. Trace right pleural effusion. 5. Chronic left lower lobe nodule with internal calcification, favoring a benign etiology. 6. Slight superior endplate height loss and L1, age indeterminate. Acute endplate fracture cannot be excluded in the proper clinical setting.
--- NOTE | ~2024-01-19 | MR_ITS ---
EXAMINATION: MR BRAIN WITH AND WITHOUT CONTRAST CLINICAL INFORMATION: Possible lung cancer with brain metastases COMPARISON: CTA 11/23/2022 TECHNIQUE: MRI of the brain was obtained using routine sequences before and following administration of intravenous contrast. A total of 10 mL of Gadavist was administered intravenously. FINDINGS: Motion degraded examination. No acute infarct. The GRE sequence is without susceptibility artifact to suggest acute or chronic blood products. No extra-axial fluid collection. Mild moderate global cerebral volume loss. Patchy T2 FLAIR hyperintense foci in the subcortical and periventricular white matter, nonspecific but presumably moderate chronic microangiopathy. 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 Again noted asymmetric prominence of the extra-axial CSF within the anterior aspect of the right middle cranial fossa with suspected mass effect along the subjacent right anterior temporal lobe, likely reflecting an arachnoid cyst. No abnormal intraparenchymal or leptomeningeal enhancement. No significant mass effect or herniation pattern. The intracranial dural venous sinus and arterial flow voids are preserved. Expanded partially empty sella. Lens replacements. The paranasal sinuses are well aerated. Mild mucosal thickening within a few right mastoid air cells. Normal marrow signal. MR/MR head/brain wo/w con IMPRESSION: 1. No evidence of intracranial metastatic disease. 2. Mild to moderate global cerebral volume loss and white matter signal changes, presumably moderate chronic microangiopathy. 3. Expanded partially empty sella.
[2024-01-19 21:43] VITALS: BP 136/84; BP 138/56; PULSE 67; PULSE 68; RESP 14; TEMP 36.7; O2SAT 87; O2SAT 95; BMI 34.6
--- NOTE | 2024-01-19 21:50 | ED_ITS ---
HPI - Back Pain/Injury General Chief Complaint: General Medical Stated Complaint: lower back pain Time Seen by Provider: 01/19/24 21:41 Source: patient and family Mode of arrival: EMS Limitations: no limitations History of Present Illness ED Provider: joann PAEZ Narrative: Patient is 78 years old obese with history of paroxysmal AFib on Eliquis, hypertension, hypothyroidism, bipolar disorder with history of frequent falls walks with walker comes here for 4 days of left hip pain is localized in the gluteal area with no radiation of the pain no mid spine pain no recent fall also noted by EMS that patient is saturating 85% at room air patient does have cough for last few days which is mostly dry no leg edema no history of CHF in the past patient had the echo done in 04/07 which showed normal LV function with ejection fraction of 60% Related Data Home Medications ?Medication ?Instructions ?Recorded ?Confirmed lancing device with lancets kit #1 ea 05/11/20 12/05/23 (Avancar Lancing Device kit) buspirone 5 mg tablet 5 mg PO BID anxiety 03/01/22 12/05/23 divalproex 500 mg tablet,extended 500 mg PO BID 03/01/22 12/05/23 release 24 hr loratadine 10 mg tablet 10 mg PO DAILY PRN ALLERGIES 03/27/23 12/05/23 meclizine 25 mg tablet 25 mg PO DAILY PRN MOTION 03/27/23 12/05/23 SICKNESS/NAUSEA aripiprazole 5 mg tablet 5 mg PO DAILY 05/20/23 12/05/23 risperidone 2 mg tablet 2 mg PO BID 05/20/23 12/05/23 linagliptin 5 mg tablet (Tradjenta) 5 mg PO DAILY 12/06/23 12/06/23 lorazepam 1 mg tablet 1 mg PO BID PRN 12/06/23 12/06/23 perphenazine 4 mg tablet 4 mg PO QAM 12/06/23 12/06/23 Previous Rx's ?Medication ?Instructions ?Recorded pen needle, diabetic 33 gauge x #100 ea 03/29/22 (Easy Comfort Pen [place]) ascorbic acid (vitamin C) 500 mg 500 mg PO DAILY #90 tabs 03/14/23 tablet (Vitamin C) ferrous fumarate 324 mg (106 mg 324 mg PO DAILY #100 tabs 03/19/23 iron) tablet (Ferrocite) nystatin 100,000 unit/mL oral 1 ml buccal BID PRN oral thrush 30 03/19/23 suspension days #60 mL cholecalciferol (vitamin D3) 25 25 mcg PO DAILY #90 tabs 06/11/23 mcg (1,000 unit) tablet (Vitamin D3) atorvastatin 40 mg tablet 40 mg PO DAILY #90 tabs 07/11/23 pantoprazole 40 mg tablet,delayed 40 mg PO DAILY@0630 #90 tabs 07/17/23 release levothyroxine 100 mcg tablet 100 mcg PO DAILY #90 tabs 07/22/23 metoprolol succinate 25 mg 25 mg PO DAILY #90 tabs 10/11/23 tablet,extended release 24 hr insulin glargine 100 unit/mL (3 24 unit (0.24 mL) subcut QPM #15 mL 11/13/23 mL) subcutaneous pen (Lantus Solostar U-100 Insulin) nystatin 100,000 unit/gram topical 1 appl topical BID #15 grams 11/13/23 powder gabapentin 100 mg capsule 100 mg PO TID #90 caps 11/25/23 metformin 500 mg tablet,extended 500 mg PO BID #180 tabs 12/14/23 release 24 hr blood sugar diagnostic (OneTouch 1 strip miscellaneous TID for 12/20/23 Verio test strips) diabetes mellitus #300 strips apixaban 5 mg tablet (Eliquis) 5 mg PO BID #60 tabs 12/23/23 pen needle, diabetic 32 gauge x #100 ea 12/29/23 (BD Flory 2nd Gen Pen Needle) oxybutynin chloride 5 mg tablet 5 mg PO BID #180 tabs 01/08/24 Allergies Allergy/AdvReac Type Severity Reaction Status Date / Time amoxicillin [Amoxicillin] Allergy Intermediate SWELLING, Verified 01/19/24 21:51 rash Sulfa (Sulfonamide Allergy Intermediate itching & Verified 01/19/24 21:51 Antibiotics) bruising codeine [CODEINE] Allergy Unknown RASH Verified 01/19/24 21:51 dicyclomine Allergy Unknown Unknown Verified 01/19/24 21:51 lidocaine [LIDOCAINE] Allergy Unknown UNKNOWN Verified 01/19/24 21:51 lithium [LITHIUM] AdvReac Severe NEPHROGENIC Verified 01/19/24 21:51 DIABETES INSIPIDUS meclizine [Meclizine] AdvReac Intermediate INCREASES Verified 01/19/24 21:51 DIZZINESS simvastatin [SIMVASTATIN] AdvReac Intermediate MYALGIAS Verified 01/19/24 21:51 metronidazole [METRONIDAZOLE] AdvReac Mild FLU LIKE Verified 01/19/24 21:51 SYMPTOMS acyclovir AdvReac Unknown Unknown Verified 01/19/24 21:51 dulaglutide [From Trulicity] AdvReac Unknown dizziness, Verified 01/19/24 21:51 tongue swollen semaglutide [From Ozempic] AdvReac Unknown Dizziness, Verified 01/19/24 21:51 problems remembering Review of Systems 2 Review of Systems: Yes all other systems are reviewed and are negative [facility] Past Medical History Medical History PAF (paroxysmal atrial fibrillation) Vaginal pain Gait instability Hypertension Intertrigo Obesity (BMI 30-39.9) Bipolar disorder Anemia Allergic rhinitis Acquired hypothyroidism Pure hypercholesterolemia Diabetes mellitus GERD without esophagitis Pain of left lower extremity High bilirubin Hx of strabismus Hx of diabetes insipidus History of vitamin D deficiency Surgical History Hx of colonoscopy History of eye surgery History of left breast biopsy Hx of dilation and curettage Hx of cataract surgery (~07/2017) Family History Family History Father History of cerebral hemorrhage Mother History of cerebral hemorrhage Sister Breast cancer Social History Social History Household Members: Spouse Housing: Apartment Do you presently have visiting nurse or other home services: Yes Alcohol intake: never Patient Tobacco Use Status: Former Tobacco user Years Smoked: 20 e-Cigarette/Vaping Use: Never Used Second Hand Smoke Exposure: Yes Advance Directives: Yes Advance Directives on File: Yes Advance Directives Date on File: 08/24/20 service: No Current occupational status: retired Cognitive needs: Yes (wheelchair) Hearing needs: No Vision needs: Yes (reading glasses) Physical Exam 2 Vital Signs: Vital Signs: Last Vital Signs Temp 97.5 F 01/20/24 05:00 Pulse 65 01/20/24 05:00 Resp 17 01/20/24 05:00 BP 128/57 L 01/20/24 05:00 Pulse Ox 95 01/20/24 05:00 O2 Del Method Oxymask 01/20/24 05:00 O2 Flow Rate 10 01/20/24 05:00 BMI result Body Mass Index 34.6 Appearance: Alert. Oriented X3. No acute distress. Obese Eyes: No pallor or icterus ENT: Pharynx normal. Oral Mucosa moist Neck: Normal inspection. Neck supple. CVS: Normal heart rate and rhythm. Pulses normal. Respiratory: No respiratory distress. Equal air entry bilateral, no wheezing/rales/rhonchi Abdomen: Soft and nontender. Bowel sounds are present, no mass palpable, no CVA tenderness Skin: Skin warm and dry. Normal skin color. Normal skin turgor. Extremities: No lower extremity edema. No calf tenderness mild muscular tenderness left gluteal area SLR negative no midline lumbar spinal tenderness Neuro: Oriented X 3. No motor deficit. No sensory deficit.No cerebellar signs , cranial nerves II-XII intact Medications Administered Generic Name Dose Route Start Last Admin Trade Name Freq PRN Reason Stop Dose Admin Methylprednisolone Sodium Succinate 40 mg 01/20/24 04:00 01/20/24 03:34 Methylprednisolone Sod Succ 40 Mg/Ml Vial IVPUSH 40 mg Q12H FRANCINE Administration Discontinued Medications Generic Name Dose Route Start Last Admin Trade Name Freq PRN Reason Stop Dose Admin Albuterol Sulfate 2.5 mg/ 0 mg 01/19/24 22:26 01/19/24 22:48 Albuterol/Ipratropium 3 ml INHALE 01/19/24 22:27 5 dose ONCE ONE Administration Lactated Ringer's 1,000 mls @ 999 mls/hr 01/20/24 02:45 01/20/24 03:15 Lr IV 01/20/24 03:45 999 mls/hr .Q1H1M FRANCINE Administration Iohexol 100 ml 01/19/24 23:52 01/19/24 23:53 Iohexol 350 Mg/Ml 100 Ml Infus..Btl IV 01/19/24 23:53 100 ml ONCE ONE Administration Morphine Sulfate 4 mg 01/20/24 00:07 01/20/24 00:22 Morphine Sulfate 4 Mg/Ml Cartridge IVPUSH 01/20/24 00:08 4 mg ONCE ONE Administration Protocol Ondansetron HCl 4 mg 01/20/24 00:07 01/20/24 00:21 Ondansetron Hcl 4 Mg/2 Ml Vial IVPUSH 01/20/24 00:08 4 mg ONCE ONE Administration Medical Decision Making Medical Decision Making [facility] Narrative: Patient with diffuse back pain no focal lesion x-ray negative for any lytic lesions noted to have significant hypoxia desaturating to 85% at room air requiring 6-8 L of oxygen via face mask to keep the saturation about 90 CT scan of the chest showed enlarged mediastinal lymph nodes and multiple lesions in the lung suggestive of metastatic cancer. Will admit patient for further evaluation patient is already on Eliquis for atrial fibrillation unlikely PE Differential Diagnosis Differential Diagnoses: The differential diagnosis associated with the presentation includes Mediastinal mass/lung cancer/pneumonia/PE/chronic back pain/metastatic lesions/CHF Admission/Observation Consideration of admission/observation: Escalation of care including admission/observation considered Consult Healthcare Provider Management of the patient was discussed with: Hospitalist Lab Data [facility] Lab Attestation statement: I reviewed the patient's lab results. 01/19/24 22:05 01/19/24 22:28 Labs: Lab Results 01/19/24 01/19/24 01/19/24 Range/Units 22:05 22:28 22:31 WBC 10.3 (4.8-10.8) X10*3/uL RBC 4.07 L (4.20-5.50) X10*6/uL Hgb 13.3 (12.0-16.0) g/dl Hct 40.2 (37.0-47.0) % MCV 98.8 H (80.0-98.0) fL MCH 32.7 (27.0-33.0) pg MCHC 33.1 (31.0-35.0) g/dl RDW 13.2 (11.0-16.0) % Plt Count 207 (160-400) X10*3/uL MPV 8.5 L (9.4-12.3) fL Immature Gran % (Auto) 1.2 H (0.0-0.4) % Neut % (Auto) 74.3 H (45-73) % Lymph % (Auto) 17.2 L (20-40) % [place] % (Auto) 6.1 (2-11) % Eos % (Auto) 1.0 (0-4) % Baso % (Auto) 0.2 (0-2) % Lymph # (Auto) 1.8 (1.2-4.9) X10*3/uL [place] # (Auto) 0.6 (0.1-1.2) X10*3/uL Eos # (Auto) 0.1 (0.0-0.4) X10*3/uL Baso # (Auto) 0.0 (0.0-0.2) X10*3/uL Abs Immat Gran (auto) 0.12 H (0.00-0.03) X10*3/uL Absolute Neuts (auto) 7.7 (2.0-8.3) x10*3/uL Absolute Nucleated RBC 0.000 (0.0-0.012) X10*3/uL Nucleated RBC % (auto) 0.0 (0.0-0.2) /100WBC VBG pH 7.42 (7.32-7.43) VBG pCO2 48 mmHg VBG pO2 46 mmHg VBG HCO3 32 H (22-26) mmol/L VBG O2 Saturation 71.0 % VBG Base Excess 6.7 mmol/L Sodium 141 (135-145) mmol/L Potassium 4.5 (3.3-5.1) mmol/L Chloride 103 (96-108) mmol/L Carbon Dioxide 26 (22-29) mmol/L Anion Gap 17 (12-20) BUN 11 (9-16) mg/dL Creatinine 0.85 (0.5-1.4) mg/dL Estim Creat Clear Calc 66.1 Estimated GFR > 60 Random Glucose 163 H (60-115) mg/dL Calcium 9.3 (8.4-10.2) mg/dL Total Bilirubin 0.5 (0.0-1.0) mg/dL AST 15 (5-31) U/L ALT 13 (0-31) U/L Alkaline Phosphatase 73 (39-117) U/L Troponin I High Sens < 2.7 (<3.5-17.0) ng/L B-Natriuretic Peptide < 10 (<100) pg/mL Total Protein 7.1 (6.5-8.0) g/dL Albumin 4.0 (3.5-5.0) g/dL Urine Color Urine Appearance Urine pH (5.0-9.0) Ur Specific [place] (1.005-1.025) Urine Protein (Neg-Trace) mg/dL Urine Glucose (UA) (Negative) mg/dL Urine Ketones (Negative) mg/dL Urine Blood (Negative) Urine Nitrite (Negative) Ur Leukocyte Esterase (Negative) Influenza Type A (PCR) NEGATIVE (Negative) Influenza Type B (PCR) NEGATIVE (Negative) RSV RNA Qual (PCR) NEGATIVE (Negative) SARS-CoV-2 RNA (RT-PCR) NEGATIVE (Negative) 01/20/24 Range/Units 01:34 WBC (4.8-10.8) X10*3/uL RBC (4.20-5.50) X10*6/uL Hgb (12.0-16.0) g/dl Hct (37.0-47.0) % MCV (80.0-98.0) fL MCH (27.0-33.0) pg MCHC (31.0-35.0) g/dl RDW (11.0-16.0) % Plt Count (160-400) X10*3/uL MPV (9.4-12.3) fL Immature Gran % (Auto) (0.0-0.4) % Neut % (Auto) (45-73) % Lymph % (Auto) (20-40) % [place] % (Auto) (2-11) % Eos % (Auto) (0-4) % Baso % (Auto) (0-2) % Lymph # (Auto) (1.2-4.9) X10*3/uL [place] # (Auto) (0.1-1.2) X10*3/uL Eos # (Auto) (0.0-0.4) X10*3/uL Baso # (Auto) (0.0-0.2) X10*3/uL Abs Immat Gran (auto) (0.00-0.03) X10*3/uL Absolute Neuts (auto) (2.0-8.3) x10*3/uL Absolute Nucleated RBC (0.0-0.012) X10*3/uL Nucleated RBC % (auto) (0.0-0.2) /100WBC VBG pH (7.32-7.43) VBG pCO2 mmHg VBG pO2 mmHg VBG HCO3 (22-26) mmol/L VBG O2 Saturation % VBG Base Excess mmol/L Sodium (135-145) mmol/L Potassium (3.3-5.1) mmol/L Chloride (96-108) mmol/L Carbon Dioxide (22-29) mmol/L Anion Gap (12-20) BUN (9-16) mg/dL Creatinine (0.5-1.4) mg/dL Estim Creat Clear Calc Estimated GFR Random Glucose (60-115) mg/dL Calcium (8.4-10.2) mg/dL Total Bilirubin (0.0-1.0) mg/dL AST (5-31) U/L ALT (0-31) U/L Alkaline Phosphatase (39-117) U/L Troponin I High Sens (<3.5-17.0) ng/L B-Natriuretic Peptide (<100) pg/mL Total Protein (6.5-8.0) g/dL Albumin (3.5-5.0) g/dL Urine Color Yellow Urine Appearance Clear Urine pH 6.5 (5.0-9.0) Ur Specific [place] 1.025 (1.005-1.025) Urine Protein Negative (Neg-Trace) mg/dL Urine Glucose (UA) Negative (Negative) mg/dL Urine Ketones Trace (Negative) mg/dL Urine Blood Negative (Negative) Urine Nitrite Negative (Negative) Ur Leukocyte Esterase Negative (Negative) Influenza Type A (PCR) (Negative) Influenza Type B (PCR) (Negative) RSV RNA Qual (PCR) (Negative) SARS-CoV-2 RNA (RT-PCR) (Negative) ABG Data Attestation ABG: I personally reviewed and interpreted this ABG as follows: Interpretation: Respiratory hypoxia Independent Interpretation I performed an independent interpretation of an: Plain X-Ray and CT Scan Interpretation: CT/CT chest w IV con IMPRESSION: 1. Right paratracheal mediastinal mass measuring up to 5.4 cm, suspicious for metastatic disease given the pulmonary findings described below, or potentially a primary neoplasm such as lymphoma. Further workup recommended which may include tissue sampling. 2. Focal masslike opacity in the anterior apical right upper lobe measuring up to 2.8 cm, concerning for malignancy such as primary lung cancer. Further workup with tissue sampling is recommended. A nearby subpleural nodule measuring 6 mm is suspicious for satellite nodule. 3. Multiple right pleural masses, suspicious for metastatic disease. 4. Trace right pleural effusion. 5. Chronic left lower lobe nodule with internal calcification, favoring a benign etiology. 6. Slight superior endplate height loss and L1, age indeterminate. Acute endplate fracture cannot be excluded in the proper clinical setting. Radiology Impression Discussion of test interpretation with radiology: I have reviewed the radiologist's reading. Critical Care Time Critical Care Time Critical Care Time: Yes Total Critical Care Time: 55 Attestation: The patient was critically ill with a high probability of imminent or life threatening deterioration. I spent greater than 60???minutes of discontinuous time evaluating the patient,delivering critical care at the bedside, discussing and evaluating pertinent data with consultants. Critical care time does not include time spent performing separately billable procedures or teaching. Total time spent performing critical care was ?55??minutes. Discharge Plan Discharge Clinical Impression: Hypoxia Patient Disposition: Admitted As Inpatient Interventions: Admission Worksheet (ED) Last Done: 01/20/24 04:34
--- NOTE | 2024-01-19 21:56 | ECG_ITS ---
Test Reason : HYPOXIA/ATRIAL FIBRILLATION Blood Pressure : / mmHG Vent. Rate : 066 BPM Atrial Rate : 066 BPM P-R Int : 180 ms QRS Dur : 080 ms QT Int : 386 ms P-R-T Axes : 031 -05 -22 degrees QTc Int : 404 ms Normal sinus rhythm Nonspecific ST and T wave abnormality Abnormal ECG When compared with ECG of 27-MAR-2023 20:21, Nonspecific T wave abnormality, worse in Inferior leads Nonspecific T wave abnormality now evident in Anterolateral leads Referred By: Alfredo Ruiz Electronically Signed By:JHON RAMÍREZ MD
[2024-01-19 21:57] VITALS: O2SAT 94
[2024-01-19 22:10] LABS: MANUAL DIFF FLAG NO
[2024-01-19 22:13] LABS: Basophils Percent Auto 0.2 % (0-2); Eosinophils Absolute Auto 0.1 X10*3/uL (0.0-0.4); Hematocrit 40.2 % (37.0-47.0); Hemoglobin 13.3 g/dl (12.0-16.0); Imm Gran Abs Auto 0.12 X10*3/uL (0.00-0.03); Imm Gran Pct Auto 1.2 % (0.0-0.4); Lymphocytes Absolute Auto 1.8 X10*3/uL (1.2-4.9); Lymphocytes Percent Auto 17.2 % (20-40); Mean Corpuscular HGB Conc 33.1 g/dl (31.0-35.0); Mean Corpuscular Hemoglobin 32.7 pg (27.0-33.0); Mean Corpuscular Volume 98.8 fL (80.0-98.0); Mean Platelet Volume 8.5 fL (9.4-12.3); Monocytes Absolute Auto 0.6 X10*3/uL (0.1-1.2); Monocytes Percent Auto 6.1 % (2-11); Neutrophils Absolute Auto 7.7 x10*3/uL (2.0-8.3); Neutrophils Percent Auto 74.3 % (45-73); Platelet Count 207 X10*3/uL (160-400); Red Blood Count 4.07 X10*6/uL (4.20-5.50); Red Cell Distribution Width 13.2 % (11.0-16.0); White Blood Count 10.3 X10*3/uL (4.8-10.8)
[2024-01-19 22:43] LABS: Venous Blood Gas Refer to POC result
[2024-01-19 22:44] LABS: VBG Base Excess 6.7 mmol/L; VBG HCO3 32 mmol/L (22-26); VBG pCO2 48 mmHg; VBG pH 7.42 (7.32-7.43); VBG pO2 46 mmHg
[2024-01-19] MEDS: Albuterol Sulfate 2.5 MG, Albuterol/Iprat 2.5/0.5MG 3 ML 3 ML INHALE (22:48)
[2024-01-19 22:51] LABS: Alanine Aminotransferase 13 U/L (0-31); Alkaline Phosphatase 73 U/L (39-117); Anion Gap 17 (12-20); Aspartate Amino Transferase 15 U/L (5-31); Bilirubin Total 0.5 mg/dL (0.0-1.0); Blood Urea Nitrogen 11 mg/dL (9-16); Calcium 9.3 mg/dL (8.4-10.2); Carbon Dioxide 26 mmol/L (22-29); Chloride 103 mmol/L (96-108); Creatinine Clr Calc Pharmacy 66.1; Estimated Glomerular Filt Rate > 60; Glucose Random 163 mg/dL (60-115); Potassium 4.5 mmol/L (3.3-5.1); Sodium 141 mmol/L (135-145); Total Protein 7.1 g/dL (6.5-8.0)
[2024-01-19 22:53] VITALS: PULSE 66; RESP 18; O2SAT 95
[2024-01-19 22:58] LABS: Troponin-I High Sensitivity < 2.7 ng/L (<3.5-17.0)
[2024-01-19 22:58] LABS: Influenza A PCR NEGATIVE (Negative); Influenza B PCR NEGATIVE (Negative); Resp Syncy Virus RNA Qual PCR NEGATIVE (Negative); SARS COV2 PCR INHOUSE NEGATIVE (Negative)
[2024-01-19 23:05] LABS: B Type Natriuretic Peptide < 10 pg/mL (<100)
[2024-01-19] MEDS: iohexoL 350 MG/ML 100 ML INFUS..BTL IV (23:53)
[2024-01-20] VITALS (13 sets, daily range): BP systolic 91–162; BP diastolic 46–71; PULSE 65–72; RESP 14–20; TEMP 35.7–36.4; O2SAT 85–97; BMI 34.7
[2024-01-20] MEDS: ondansetron HCL 4 MG/2 ML VIAL IVPUSH (00:21)
[2024-01-20] MEDS: Morphine Sulfate 4 MG/ML CARTRIDGE IVPUSH (00:22)
--- NOTE | 2024-01-20 01:00 | PC.NURSE ---
Pt BIBA from home, A&Ox3, Pt reports sharp constant bilateral hip pain with lower back pain x 4 days. Family at bedside also reports that Pt has been more short of breath especially with exertion that has been ongoing for the last few months. EMS reports Pt SpO2 was 85% on RA, placed on 3L with improvement to 95%. Pt destated to 85% on 4L after IV morphine was given per MAR, Pt placed on 10L via oxymask with improvement to 95%, Pt is a mouth breather. Lung sounds clear. Pt also reports dry chronic cough. Pt reports she ambulates with walker at home.
[2024-01-20 01:42] LABS: Appearance Urine Clear; Color Urine Yellow; Glucose Urine UA Negative (Negative); Leukocyte Esterase Urine Negative (Negative); Nitrite Urine Negative (Negative); PH 6.5 (5.0-9.0); Specific Gravity - Urine 1.025 (1.005-1.025); Urine Blood Negative (Negative); Urine Ketones Trace mg/dL (Negative); Urine Protein Negative (Neg-Trace)
--- NOTE | 2024-01-20 02:47 | P.HPHOSP_ITS ---
History of Present Illness Date of Service: 01/20/24 Chief Complaint: Dyspnea This is a 78-year-old female with pertinent history of former tobacco use disorder, bipolar disorder, paroxysmal atrial fibrillation on anticoagulation, hypothyroidism, insulin-dependent diabetes mellitus, mixed hyperlipidemia who was brought to the emergency department for evaluation of dyspnea. History obtained with the help of daughter at bedside. The daughter states that patient has been dyspneic with exertion that has been ongoing for the last 6 months. It has been progressive in onset. Daughter also reports that patient has been wheezing. No diagnosis of COPD or asthma and patient is not on home inhalers. On the day of presentation patient also complained of back pain and had an episode of bowel incontinence. Patient's was unable to take care of the patient and patient was sent to the ER for further evaluation. She does complain of dyspnea at the time of my examination. Denies cough. Admits wheezing. No lower extremity edema, orthopnea or PND. Denies fever, chills, chest discomfort, palpitations. In the emergency department, patient was found to be hypoxic and given breathing treatments. Imaging with right upper lobe mass with right paratracheal mediastinal mass. Review of Systems 2 Constitutional: Constitutional: Reports fatigue, Reports malaise and Reports poor appetite Cardiovascular: Cardiovascular: Reports dyspnea on exertion Respiratory: Respiratory: Reports dyspnea on exertion and Reports wheezing Gastrointestinal: Gastrointestinal: Reports loose stools Genitourinary: Genitourinary: Reports no additional female genitourinary complaints Endocrine: Endocrine: Reports fatigue Allergic/Immunologic: Allergic/Immunologic: Reports wheezing [facility] Medical History PAF (paroxysmal atrial fibrillation) Vaginal pain Gait instability Hypertension Intertrigo Obesity (BMI 30-39.9) Bipolar disorder Anemia Allergic rhinitis Acquired hypothyroidism Pure hypercholesterolemia Diabetes mellitus GERD without esophagitis Pain of left lower extremity High bilirubin Hx of strabismus Hx of diabetes insipidus History of vitamin D deficiency Family History Father History of cerebral hemorrhage Mother History of cerebral hemorrhage Sister Breast cancer Surgical History Hx of colonoscopy History of eye surgery History of left breast biopsy Hx of dilation and curettage Hx of cataract surgery (~07/2017) Social History Household Members: Spouse Housing: Apartment Do you presently have visiting nurse or other home services: No Alcohol intake: never Patient Tobacco Use Status: Former Tobacco user Tobacco use type: Cigarette Years Smoked: 20 Smoked in Last 30 Days: No e-Cigarette/Vaping Use: Never Used Patient Interested in Nicotine Replacement: No Patient Given Instructions on How to Stop Smoking: No Second Hand Smoke Exposure: No Use of substances other than those prescribed or required for medical reasons: No Currently Displaying Signs/Symptoms of Drug Intoxication Withdrawal: No Any prior treatment program specific to substance use: No Have you been hit, kicked, punched, or otherwise hurt by someone within the past year? If so, by whom?: No Do you feel safe in your current relationship?: Yes Is there a partner from a previous relationship who is making you feel unsafe now?: No Are you made to feel afraid or neglected: No Advance Directives: Yes Advance Directives Information Provided: No Advance Directives on File: Yes Advance Directives Date on File: 08/24/20 Do you have a plan to hurt others: No Plan Recently lost weight without trying: Unsure Eating poorly because of decreased appetite: No Nutrition Risks: No Nutritional Risk Patient : No : No Poor oral hygiene: No service: No Current occupational status: retired Cognitive needs: Yes (wheelchair) Hearing needs: No Vision needs: Yes (reading glasses) Meds Allergies Allergy/AdvReac Type Severity Reaction Status Date / Time amoxicillin [Amoxicillin] Allergy Intermediate SWELLING, Verified 01/19/24 21:51 rash Sulfa (Sulfonamide Allergy Intermediate itching & Verified 01/19/24 21:51 Antibiotics) bruising codeine [CODEINE] Allergy Unknown RASH Verified 01/19/24 21:51 dicyclomine Allergy Unknown Unknown Verified 01/19/24 21:51 lidocaine [LIDOCAINE] Allergy Unknown UNKNOWN Verified 01/19/24 21:51 lithium [LITHIUM] AdvReac Severe NEPHROGENIC Verified 01/19/24 21:51 DIABETES INSIPIDUS meclizine [Meclizine] AdvReac Intermediate INCREASES Verified 01/19/24 21:51 DIZZINESS simvastatin [SIMVASTATIN] AdvReac Intermediate MYALGIAS Verified 01/19/24 21:51 metronidazole [METRONIDAZOLE] AdvReac Mild FLU LIKE Verified 01/19/24 21:51 SYMPTOMS acyclovir AdvReac Unknown Unknown Verified 01/19/24 21:51 dulaglutide [From Trulicity] AdvReac Unknown dizziness, Verified 01/19/24 21:51 tongue swollen semaglutide [From Ozempic] AdvReac Unknown Dizziness, Verified 01/19/24 21:51 problems remembering Active Medications: Current Medications Lactated Ringer's (Lr) 1,000 mls @ 999 mls/hr IV .Q1H1M FRANCINE Stop: 01/20/24 03:45 Home Medications ?Medication ?Instructions ?Recorded ?Confirmed ?Last Taken ?Type lancing device with lancets kit #1 ea 05/11/20 12/05/23 Unknown [facility] buspirone 5 mg tablet 5 mg PO BID anxiety 03/01/22 12/05/23 Unknown History divalproex 500 mg tablet,extended 500 mg PO BID 03/01/22 12/05/23 Unknown History release 24 hr loratadine 10 mg tablet 10 mg PO DAILY PRN ALLERGIES 03/27/23 12/05/23 Unknown History meclizine 25 mg tablet 25 mg PO DAILY PRN MOTION 03/27/23 12/05/23 Unknown History SICKNESS/NAUSEA aripiprazole 5 mg tablet 5 mg PO DAILY 05/20/23 12/05/23 Unknown History risperidone 2 mg tablet 2 mg PO BID 05/20/23 12/05/23 Unknown History linagliptin 5 mg tablet (Tradjenta) 5 mg PO DAILY 12/06/23 12/06/23 Unknown History lorazepam 1 mg tablet 1 mg PO BID PRN 12/06/23 12/06/23 Unknown History perphenazine 4 mg tablet 4 mg PO QAM 12/06/23 12/06/23 Unknown History Physical Exam 2 Vital Signs and Narrative: Vital Signs: Last Vital Signs Temp 98.1 F 01/19/24 21:43 Pulse 69 01/20/24 00:20 Resp 14 01/20/24 00:20 BP 122/59 L 01/20/24 00:20 Pulse Ox 95 01/20/24 01:00 O2 Del Method Oxymask 01/20/24 01:00 O2 Flow Rate 10 01/20/24 01:00 BMI result Body Mass Index 34.6 Elderly female lying in bed on supplemental oxygen Neck supple, no JVD Regular rate and rhythm, S1-S2 heard Bilateral expiratory wheezing heard Abdomen soft nontender, no guarding, no rigidity Patient is awake, alert and oriented to self, place, ; no focal motor deficit Psych: Normal mood No pedal edema Results Labs 01/19/24 22:05 01/19/24 22:28 Labs: Laboratory Results - last 24 hr 01/19/24 01/19/24 01/19/24 22:05 22:28 22:31 MCV 98.8 H MCH 32.7 MCHC 33.1 RDW 13.2 Plt Count 207 MPV 8.5 L Immature Gran % (Auto) 1.2 H Neut % (Auto) 74.3 H Lymph % (Auto) 17.2 L Wilkin % (Auto) 6.1 Eos % (Auto) 1.0 Baso % (Auto) 0.2 Lymph # (Auto) 1.8 Wilkin # (Auto) 0.6 Eos # (Auto) 0.1 Baso # (Auto) 0.0 Abs Immat Gran (auto) 0.12 H Absolute Neuts (auto) 7.7 Absolute Nucleated RBC 0.000 Nucleated RBC % (auto) 0.0 VBG pH 7.42 VBG pCO2 48 VBG pO2 46 VBG HCO3 32 H VBG O2 Saturation 71.0 VBG Base Excess 6.7 Anion Gap 17 Estim Creat Clear Calc 66.1 Estimated GFR > 60 Random Glucose 163 H Calcium 9.3 Total Bilirubin 0.5 AST 15 ALT 13 Alkaline Phosphatase 73 Troponin I High Sens < 2.7 B-Natriuretic Peptide < 10 Total Protein 7.1 Albumin 4.0 Urine Color Urine Appearance Urine pH Ur Specific [place] Urine Protein Urine Glucose (UA) Urine Ketones Urine Blood Urine Nitrite Ur Leukocyte Esterase Influenza Type A (PCR) NEGATIVE Influenza Type B (PCR) NEGATIVE RSV RNA Qual (PCR) NEGATIVE SARS-CoV-2 RNA (RT-PCR) NEGATIVE 01/20/24 01:34 MCV MCH MCHC RDW Plt Count MPV Immature Gran % (Auto) Neut % (Auto) Lymph % (Auto) Wilkin % (Auto) Eos % (Auto) Baso % (Auto) Lymph # (Auto) Wilkin # (Auto) Eos # (Auto) Baso # (Auto) Abs Immat Gran (auto) Absolute Neuts (auto) Absolute Nucleated RBC Nucleated RBC % (auto) VBG pH VBG pCO2 VBG pO2 VBG HCO3 VBG O2 Saturation VBG Base Excess Anion Gap Estim Creat Clear Calc Estimated GFR Random Glucose Calcium Total Bilirubin AST ALT Alkaline Phosphatase Troponin I High Sens B-Natriuretic Peptide Total Protein Albumin Urine Color Yellow Urine Appearance Clear Urine pH 6.5 Ur Specific [place] 1.025 Urine Protein Negative Urine Glucose (UA) Negative Urine Ketones Trace Urine Blood Negative Urine Nitrite Negative Ur Leukocyte Esterase Negative Influenza Type A (PCR) Influenza Type B (PCR) RSV RNA Qual (PCR) SARS-CoV-2 RNA (RT-PCR) Imaging Radiologist's Impressions: Impressions Chest X-Ray 01/19/24 22:24 IMPRESSION: New soft tissue attenuation in the right paratracheal region, suspicious for a mediastinal mass. Contrast-enhanced CT has already been ordered for further evaluation Hip/Pelvis X-Ray 01/19/24 22:24 IMPRESSION: No acute findings identified. Degenerative changes of the hips, right greater than left. Lumbar Spine X-Ray 01/19/24 22:24 IMPRESSION: 1. Slight loss of height in the superior endplate of L1, age-indeterminate. 2. Grade 1 anterolistheses of L4 on L5, favored to be chronic/degenerative in nature in the setting of severe lower lumbar facet arthropathy. Chest CT 01/19/24 23:45 IMPRESSION: 1. Right paratracheal mediastinal mass measuring up to 5.4 cm, suspicious for metastatic disease given the pulmonary findings described below, or potentially a primary neoplasm such as lymphoma. Further workup recommended which may include tissue sampling. 2. Focal masslike opacity in the anterior apical right upper lobe measuring up to 2.8 cm, concerning for malignancy such as primary lung cancer. Further workup with tissue sampling is recommended. A nearby subpleural nodule measuring 6 mm is suspicious for satellite nodule. 3. Multiple right pleural masses, suspicious for metastatic disease. 4. Trace right pleural effusion. 5. Chronic left lower lobe nodule with internal calcification, favoring a benign etiology. 6. Slight superior endplate height loss and L1, age indeterminate. Acute endplate fracture cannot be excluded in the proper clinical setting. Assessment and Plan (1) Hypoxia: Status: Acute (2) Mass of right lung: Status: Acute Plan This is a 78-year-old female with pertinent history of former tobacco use disorder, bipolar disorder, paroxysmal atrial fibrillation on anticoagulation, hypothyroidism, insulin-dependent diabetes mellitus, mixed hyperlipidemia who was brought to the emergency department for evaluation of dyspnea. #. Acute hypoxic respiratory failure due to exacerbation of obstructive lung disease: Likely has underlying COPD in the setting of former tobacco use. Initiated IV steroids, scheduled and p.r.n. DuoNebs. Imaging with right upper lobe mass and right paratracheal mass which may be contributing. #. Right lung upper lobe and right paratracheal mass: Consulting pulmonology and Oncology. Also multiple right pleural masses suspicious for metastasis. Will also need CT abdomen/pelvis and CT head to complete workup for possible metastasis (unable to obtain CT abdomen, pelvis, head at the time of admission as patient already received IV contrast) #. Paroxysmal atrial fibrillation: Hold anticoagulation for possible need for biopsy. Rate controlled in the ER #. Bipolar disorder: Continue home mood stabilizers #. Hypothyroidism: On Synthroid #. Insulin-dependent diabetes mellitus: Initiating Accu-Cheks with sliding scale insulin #. Mixed hyperlipidemia: On statin Med rec pending DVT prophylaxis: Mechanical DNR/DNI. Discussed with patient's daughter at bedside his healthcare proxy Admit as inpatient and will require two night minimum hospital stay for supplemental oxygen, evaluation of right lung mass (as above), which is not possible in a lesser acute setting. Quality Stroke Does the patient have a stroke diagnosis?: No VTE Prior VTE?: No VTE Risk Level:: Medical - moderate - high VTE Device Contraindication: N/A - Device Ordered VTE Drug Contraindication: Treatment Not Indicated
[2024-01-20] MEDS: Lactated Ringers 1,000 ML 999 ML IV (03:15)
[2024-01-20] MEDS: methylPREDNISolone Sod Succ 40 MG/ML VIAL IVPUSH ×2 (03:34→17:21)
--- NOTE | 2024-01-20 05:21 | PC.NURSE ---
Pt incontinent of urine, incontinent care provided. Report complete, Pt will be transported to [id number], Pt aware of plan.
[2024-01-20 06:26] LABS: MANUAL DIFF FLAG NO
--- NOTE | 2024-01-20 06:42 | PM.HEMONCCN ---
Subjective - Subjective Chief complaint: None Patient: new to practice Consult date: 01/20/24 Primary Care Provider: Unknown Physician HPI - Consult Narrative Reason for consult: Probable metastatic lung cancer Narrative: Anu Chapa is a 78 year old female who is admitted for hypoxia and altered mental status. At this time, patient is unable to provide any history. As per chart review, patient has been having progressive dyspnea for several months. She was seen by her PCP in November and did not seem to have any acute symptoms at that time. She has a history of paroxysmal atrial fibrillation and is on Eliquis. She has a history of smoking. [facility] Medical History: Medical History (Last Updated 01/20/24 @ 08:33 by Miguel Trevizo MD) Acquired hypothyroidism Allergic rhinitis Anemia Bipolar disorder COPD (chronic obstructive pulmonary disease) Diabetes mellitus Gait instability GERD without esophagitis High bilirubin History of vitamin D deficiency Hx of diabetes insipidus Hx of strabismus Hypertension Intertrigo Obesity (BMI 30-39.9) PAF (paroxysmal atrial fibrillation) Pain of left lower extremity Pure hypercholesterolemia Vaginal pain Family History: Family History (Last Reviewed 01/20/24 @ 03:17 by Urszula Esqueda MD) Father History of cerebral hemorrhage Mother History of cerebral hemorrhage Sister Breast cancer Surgical History: Surgical History (Last Reviewed 01/20/24 @ 06:04 by Shannan Jones RN) History of eye surgery History of left breast biopsy Hx of cataract surgery Onset Date: ~07/2017 Hx of colonoscopy Hx of dilation and curettage Social History: Social History (Last Reviewed 01/20/24 @ 03:17 by Urszula Esqueda MD) Living Situation History: Household Members: Spouse Housing: Apartment Do you presently have visiting nurse or other home services: No Alcohol History Details: 1. How often do you have a drink containing alcohol?: a. Never 3. How often do you have six or more drinks on one occasion?: a. Never AUDIT-C Alcohol total score: 0 Currently Displaying Signs/Symptoms of Alcohol Withdrawal: No Tobacco History: Patient Tobacco Use Status: Former Tobacco user Tobacco use type: Cigarette Years Smoked: 20 Smoked in Last 30 Days: No e-Cigarette/Vaping Use: Never Used Patient Interested in Nicotine Replacement: No Patient Given Instructions on How to Stop Smoking: No Second Hand Smoke Exposure: No Substance Use History: Use of substances other than those prescribed or required for medical reasons: No Currently Displaying Signs/Symptoms of Drug Intoxication Withdrawal: No Any prior treatment program specific to substance use: No Domestic Abuse History: Have you been hit, kicked, punched, or otherwise hurt by someone within the past year? If so, by whom?: No Do you feel safe in your current relationship?: Yes Is there a partner from a previous relationship who is making you feel unsafe now?: No Are you made to feel afraid or neglected: No Advance Directives: Advance Directives: Yes Advance Directives Information Provided: No Advance Directives on File: Yes Advance Directives Date on File: 08/24/20 Homicidal Assessment: Do you have a plan to hurt others: No Plan Nutrition Assessment: Recently lost weight without trying: Unsure Eating poorly because of decreased appetite: No Nutrition Risks: No Nutritional Risk Patient : No : No Poor oral hygiene: No Occupation Assessmet: service: No Current occupational status: retired Home Medications and Allergies Current Medications: Current Medications Acetaminophen (Acetaminophen 325 Mg Tablet) 650 mg PO Q6H PRN PRN Reason: Pain, Mild (Pain Scale 1-3), fever or headache Albuterol/Ipratropium (Albuterol/Iprat 2.5/0.5mg 3 Ml Ampul.Neb) 3 ml INHALE RQ4H WHILE AWAKE [facility] Albuterol/Ipratropium (Albuterol/Iprat 2.5/0.5mg 3 Ml Ampul.Neb) 3 ml INHALE Q4H PRN PRN Reason: Wheezing Calcium Carbonate (Calcium Carbonate 750 Mg Tab.Chew) 750 mg PO Q4H PRN PRN Reason: Heartburn Glucose (Glucose Gel 15 Gm Gel..Gram.) 15 gm PO Q15M PRN; Protocol PRN Reason: per Hypoglycemia Standing Ord. Dextrose (D10) 250 mls @ 750 mls/hr IV Q15M PRN; Protocol PRN Reason: per Hypoglycemia Standing Ord. Magnesium Hydroxide (Milk Of Magnesia 30 Ml Oral.Susp) 30 ml PO DAILY PRN PRN Reason: Constipation Melatonin (Melatonin 3 Mg Tablet) 6 mg PO BEDTIME PRN PRN Reason: Insomnia Methylprednisolone Sodium Succinate (Methylprednisolone Sod Succ 40 Mg/Ml Vial) 40 mg IVPUSH Q12H FRANCINE Last Admin: 01/20/24 03:34 Dose: 40 mg Ondansetron HCl (Ondansetron Hcl 4 Mg/2 Ml Vial) 4 mg IVPUSH Q8H PRN PRN Reason: Nausea and Vomiting Sodium Chloride (0.9 % Sodium Chloride Flush 3 Ml Syringe) [facility] Home Medications ?Medication ?Instructions ?Recorded ?Confirmed ?Type lancing device with lancets kit #1 ea 05/11/20 12/05/23 History ([employer] Lancing Device kit) buspirone 5 mg tablet 5 mg PO BID anxiety 03/01/22 01/20/24 History divalproex 500 mg tablet,extended 500 mg PO BID 03/01/22 01/20/24 History release 24 hr aripiprazole 5 mg tablet 2 mg PO DAILY 05/20/23 01/20/24 History risperidone 2 mg tablet 2 mg PO BID 05/20/23 01/20/24 History lorazepam 1 mg tablet 1 mg PO BID PRN Anxiety 12/06/23 01/20/24 History atorvastatin 40 mg tablet 40 mg PO BEDTIME 01/20/24 01/20/24 History nystatin 100,000 unit/gram topical 1 appl topical BID PRN rash under 01/20/24 01/20/24 History powder breasts Allergies Allergy/AdvReac Type Severity Reaction Status Date / Time amoxicillin [Amoxicillin] Allergy Intermediate SWELLING, Verified 01/19/24 21:51 rash Sulfa (Sulfonamide Allergy Intermediate itching & Verified 01/19/24 21:51 Antibiotics) bruising codeine [CODEINE] Allergy Unknown RASH Verified 01/19/24 21:51 dicyclomine Allergy Unknown Unknown Verified 01/19/24 21:51 lidocaine [LIDOCAINE] Allergy Unknown UNKNOWN Verified 01/19/24 21:51 lithium [LITHIUM] AdvReac Severe NEPHROGENIC Verified 01/19/24 21:51 DIABETES INSIPIDUS meclizine [Meclizine] AdvReac Intermediate INCREASES Verified 01/19/24 21:51 DIZZINESS simvastatin [SIMVASTATIN] AdvReac Intermediate MYALGIAS Verified 01/19/24 21:51 metronidazole [METRONIDAZOLE] AdvReac Mild FLU LIKE Verified 01/19/24 21:51 SYMPTOMS acyclovir AdvReac Unknown Unknown Verified 01/19/24 21:51 dulaglutide [From Trulicity] AdvReac Unknown dizziness, Verified 01/19/24 21:51 tongue swollen semaglutide [From Ozempic] AdvReac Unknown Dizziness, Verified 01/19/24 21:51 problems remembering Physical Exam Vital signs: Vital Signs Temp 97.5 F 01/20/24 05:00 Pulse 65 01/20/24 05:00 Resp 17 01/20/24 05:00 BP 128/57 L 01/20/24 05:00 Pulse Ox 95 01/20/24 05:00 O2 Del Method Oxymask 01/20/24 05:00 O2 Flow Rate 10 01/20/24 05:00 Intake & Output 01/19/24 01/19/24 01/20/24 06:59 18:59 06:59 Intake Total 1000 / 1000 Balance 1000 / 1000 Intake: Intake, IV Amount 1000 / 1000 Lactated Ringers 1,000 ml @ 999 1000 / 1000 mls/hr IV .Q1H1M [facility] Rx#: [id number] Other: Last Bowel Movement 01/18/24 Weight 97.6 kg [place] Weight in Grams [id number] Weight 97.6 kg - Constitutional Present: somnolent - Routine Neck Exam Absent: lymphadenopathy - Routine Respiratory Exam Present: wheezes. Absent: accessory muscle use - Routine Cardiovascular Exam Cardiovascular: Present: S1, S2 - Routine Abdominal Exam Present: soft - Routine Extremities Exam Present: pedal edema - Routine Neurological Exam Present: altered mental status Hem/Onc Consult Result - Labs CBC & Chem 7: 01/20/24 06:01 01/20/24 06:01 Labs: Short CBC 01/19/24 Range/Units 22:05 WBC 10.3 (4.8-10.8) X10*3/uL Hgb 13.3 (12.0-16.0) g/dl Hct 40.2 (37.0-47.0) % Plt Count 207 (160-400) X10*3/uL BMP 01/19/24 22:28 Sodium 141 Potassium 4.5 Chloride 103 Carbon Dioxide 26 BUN 11 Creatinine 0.85 Calcium 9.3 Liver Function 01/19/24 Range/Units 22:28 Total Bilirubin 0.5 (0.0-1.0) mg/dL AST 15 (5-31) U/L ALT 13 (0-31) U/L Alkaline Phosphatase 73 (39-117) U/L Albumin 4.0 (3.5-5.0) g/dL Urine 01/20/24 Range/Units 01:34 Urine Color Yellow Urine Appearance Clear Urine pH 6.5 (5.0-9.0) Ur Specific [place] 1.025 (1.005-1.025) Urine Protein Negative (Neg-Trace) mg/dL Urine Glucose (UA) Negative (Negative) mg/dL Assessment and Plan Patient Active problem list reviewed?: Yes (1) Metastatic carcinoma to lung Status: Acute Assessment and plan: 1. This is a 78-year-old woman with history of paroxysmal atrial fibrillation, diabetes mellitus presenting with hypoxemia and altered mental status. CT chest shows a 2.8 x 2.6 cm right upper lobe mass concerning for malignancy. Additionally left lower lobe mass measuring 1.5 x 1.3 cm, mediastinal mass measuring 3.8 x 5.4 cm concerning for adenopathy. Multiple additional pleural mass along the right pleura suspicious for metastatic disease. Given the acute mental status changes and probable history of metastatic malignancy, brain scan would be recommended if she is able to undergo the procedure. Ideally, MRI brain with and without contrast would be necessary. As recommended by Dr. Trevizo, CT-guided biopsy for diagnosis and further management. I thank you for this referral, will follow with you. - Time Spent With Patient Time Spent with Patient (in minutes): 15
[2024-01-20 06:54] LABS: Basophils Percent Auto 0.3 % (0-2); Eosinophils Percent Auto 0.2 % (0-4); Hematocrit 39.3 % (37.0-47.0); Hemoglobin 12.6 g/dl (12.0-16.0); Imm Gran Abs Auto 0.13 X10*3/uL (0.00-0.03); Lymphocytes Absolute Auto 1.1 X10*3/uL (1.2-4.9); Lymphocytes Percent Auto 8.5 % (20-40); Mean Corpuscular HGB Conc 32.1 g/dl (31.0-35.0); Mean Corpuscular Hemoglobin 32.8 pg (27.0-33.0); Mean Corpuscular Volume 102.3 fL (80.0-98.0); Mean Platelet Volume 8.9 fL (9.4-12.3); Monocytes Absolute Auto 0.4 X10*3/uL (0.1-1.2); Monocytes Percent Auto 2.6 % (2-11); Neutrophils Absolute Auto 11.7 x10*3/uL (2.0-8.3); Neutrophils Percent Auto 87.4 % (45-73); Platelet Count 179 X10*3/uL (160-400); Red Blood Count 3.84 X10*6/uL (4.20-5.50); Red Cell Distribution Width 13.4 % (11.0-16.0); White Blood Count 13.4 X10*3/uL (4.8-10.8)
[2024-01-20 07:08] LABS: Anion Gap 13 (12-20); Blood Urea Nitrogen 11 mg/dL (9-16); Calcium 8.9 mg/dL (8.4-10.2); Carbon Dioxide 28 mmol/L (22-29); Chloride 103 mmol/L (96-108); Creatinine Clr Calc Pharmacy 66.3; Estimated Glomerular Filt Rate > 60; Glucose Random 146 mg/dL (60-115); Potassium 4.6 mmol/L (3.3-5.1); Sodium 139 mmol/L (135-145)
--- NOTE | 2024-01-20 07:34 | P.PNIM_ITS ---
Subjective Subjective Date of Service: 01/20/24 Interval History: Seen in follow-up for acute hypoxemic respiratory failure related to COPD with new right upper lobe and right paratracheal mass Interval history: Patient oriented x3 but is refusing scans. Does not appear to have good insight or judgment at this time. Reports diffuse pain in shoulders, hips,back. Also has headache and feels speech has not been normal in several months. Family agrees and is having difficulty caring for patient. She has no other complaints other than being hungry Review of Systems Review of Systems: Yes all other systems are reviewed and are negative Physical Exam 2 Vital Signs: Vital Signs: Last Vital Signs Temp 97.5 F 01/20/24 05:00 Pulse 65 01/20/24 05:00 Resp 17 01/20/24 05:00 BP 128/57 L 01/20/24 05:00 Pulse Ox 95 01/20/24 05:00 O2 Del Method Oxymask 01/20/24 05:00 O2 Flow Rate 10 01/20/24 05:00 BMI result Body Mass Index 34.7 Constitutional - Awake and Alert, No apparent distress Eyes - PERRLA, EOMI Cardiovascular - S1S2, RRR, No edema Respiratory - Normal lung expansion, Normal respiratory effort, No respiratory distress 8 L via OxyMask, diminished bilaterally Gastrointestinal - NT / ND; +BS; No rebound or guarding Extremities - no calf tenderness bilaterally, no swelling Skin - Warm/Dry Neurological - Alert & oriented x3 Psychological - Appropriate affect Objective Data Active Medications Acetaminophen (Acetaminophen 325 Mg Tablet) 650 mg PO Q6H PRN PRN Reason: Pain, Mild (Pain Scale 1-3), fever or headache Albuterol/Ipratropium (Albuterol/Iprat 2.5/0.5mg 3 Ml Ampul.Neb) 3 ml INHALE RQ4H WHILE AWAKE [facility] Last Admin: 01/20/24 07:33 Dose: Not Given Documented By: GENESIS Non-Admin Reason: Patient Asleep Albuterol/Ipratropium (Albuterol/Iprat 2.5/0.5mg 3 Ml Ampul.Neb) 3 ml INHALE Q4H PRN PRN Reason: Wheezing Calcium Carbonate (Calcium Carbonate 750 Mg Tab.Chew) 750 mg PO Q4H PRN PRN Reason: Heartburn Glucose (Glucose Gel 15 Gm Gel..Gram.) 15 gm PO Q15M PRN; Protocol PRN Reason: per Hypoglycemia Standing Ord. Dextrose (D10) 250 mls @ 750 mls/hr IV Q15M PRN; Protocol PRN Reason: per Hypoglycemia Standing Ord. Magnesium Hydroxide (Milk Of Magnesia 30 Ml Oral.Susp) 30 ml PO DAILY PRN PRN Reason: Constipation Melatonin (Melatonin 3 Mg Tablet) 6 mg PO BEDTIME PRN PRN Reason: Insomnia Methylprednisolone Sodium Succinate (Methylprednisolone Sod Succ 40 Mg/Ml Vial) 40 mg IVPUSH Q12H [facility] Last Admin: 01/20/24 03:34 Dose: 40 mg Documented By: LOWELL Ondansetron HCl (Ondansetron Hcl 4 Mg/2 Ml Vial) 4 mg IVPUSH Q8H PRN PRN Reason: Nausea and Vomiting Sodium Chloride (0.9 % Sodium Chloride Flush 3 Ml Syringe) 3 ml IVFLUSH QSHIFT [facility] Labs 01/20/24 06:01 01/20/24 06:01 Labs: Laboratory Results - last 24 hr 01/19/24 01/19/24 01/19/24 22:05 22:28 22:31 MCV 98.8 H MCH 32.7 MCHC 33.1 RDW 13.2 Plt Count 207 MPV 8.5 L Immature Gran % (Auto) 1.2 H Neut % (Auto) 74.3 H Lymph % (Auto) 17.2 L [place] % (Auto) 6.1 Eos % (Auto) 1.0 Baso % (Auto) 0.2 Lymph # (Auto) 1.8 [place] # (Auto) 0.6 Eos # (Auto) 0.1 Baso # (Auto) 0.0 Abs Immat Gran (auto) 0.12 H Absolute Neuts (auto) 7.7 Absolute Nucleated RBC 0.000 Nucleated RBC % (auto) 0.0 VBG pH 7.42 VBG pCO2 48 VBG pO2 46 VBG HCO3 32 H VBG O2 Saturation 71.0 VBG Base Excess 6.7 Anion Gap 17 Estim Creat Clear Calc 66.1 Estimated GFR > 60 Random Glucose 163 H Calcium 9.3 Total Bilirubin 0.5 AST 15 ALT 13 Alkaline Phosphatase 73 Troponin I High Sens < 2.7 B-Natriuretic Peptide < 10 Total Protein 7.1 Albumin 4.0 Urine Color Urine Appearance Urine pH Ur Specific [place] Urine Protein Urine Glucose (UA) Urine Ketones Urine Blood Urine Nitrite Ur Leukocyte Esterase Influenza Type A (PCR) NEGATIVE Influenza Type B (PCR) NEGATIVE RSV RNA Qual (PCR) NEGATIVE SARS-CoV-2 RNA (RT-PCR) NEGATIVE 01/20/24 01/20/24 01:34 06:01 MCV 102.3 H MCH 32.8 MCHC 32.1 RDW 13.4 Plt Count 179 MPV 8.9 L Immature Gran % (Auto) 1.0 H Neut % (Auto) 87.4 H Lymph % (Auto) 8.5 L [place] % (Auto) 2.6 Eos % (Auto) 0.2 Baso % (Auto) 0.3 Lymph # (Auto) 1.1 L [place] # (Auto) 0.4 Eos # (Auto) 0.0 Baso # (Auto) 0.0 Abs Immat Gran (auto) 0.13 H Absolute Neuts (auto) 11.7 H Absolute Nucleated RBC 0.000 Nucleated RBC % (auto) 0.0 VBG pH VBG pCO2 VBG pO2 VBG HCO3 VBG O2 Saturation VBG Base Excess Anion Gap 13 Estim Creat Clear Calc 66.3 Estimated GFR > 60 Random Glucose 146 H Calcium 8.9 Total Bilirubin AST ALT Alkaline Phosphatase Troponin I High Sens B-Natriuretic Peptide Total Protein Albumin Urine Color Yellow Urine Appearance Clear Urine pH 6.5 Ur Specific [place] 1.025 Urine Protein Negative Urine Glucose (UA) Negative Urine Ketones Trace Urine Blood Negative Urine Nitrite Negative Ur Leukocyte Esterase Negative Influenza Type A (PCR) Influenza Type B (PCR) RSV RNA Qual (PCR) SARS-CoV-2 RNA (RT-PCR) Assessment and Plan (1) COPD (chronic obstructive pulmonary disease): Status: Acute (2) Metastatic carcinoma to lung: Status: Acute (3) Acute respiratory failure: Status: Acute Plan 78-year-old female with pertinent history of former tobacco use disorder, bipolar disorder, paroxysmal atrial fibrillation on anticoagulation, hypothyroidism, insulin-dependent diabetes mellitus, mixed hyperlipidemia admitted for acute hypoxemic respiratory failure due to COPD exacerbation found to have new right upper lobe and paratracheal mass #Acute hypoxic respiratory failure due to exacerbation of obstructive lung disease Likely has underlying COPD in the setting of former tobacco use. Imaging with right upper lobe mass and right paratracheal mass which may be contributing. IV methylprednisolone 40 mg q.12h DuoNebs q.4h/p.r.n. #Right lung upper lobe and right paratracheal mass Suspicious for primary lung cancer with metastasis MRI brain ordered and CT abdomen/pelvis with/without contrast to be performed tomorrow given IV contrast administered last night. Ativan to be administered prior to scans. Patient has been refusing further imaging and does not want treatment for cancer however has been deemed to not have capacity by Psychiatry. Family desires to move forward with imaging to better assess treatment options. Desire that she remain full code per her MOLST form Oncology input appreciated #Paroxysmal atrial fibrillation-rate controlled Hold Eliquis due to possible biopsy per pulmonology times 2-3 days. Will initiate therapeutic Lovenox Continue metoprolol for rate control #Bipolar disorder Continue home mood stabilizers #Hypothyroidism On Synthroid #Insulin-dependent diabetes mellitus POC glucose, diabetic diet Humalog on sliding scale Hold metformin #Mixed hyperlipidemia statin DVT prophylaxis: lovenox (therapeutic) Healthcare proxy is patient's , Davis, and son Adiel. Health care proxy invoked. Dicussed code status and would like to honor molst form- FULL CODE until further imaging to assess prognosis and evaluate treatment plan Admit as inpatient and will require two night minimum hospital stay for supplemental oxygen, evaluation of right lung mass (as above), which is not possible in a lesser acute setting. Quality Stroke Does the patient have a stroke diagnosis?: No VTE Prior VTE?: No VTE Risk Level:: Medical - moderate - high VTE Device Contraindication: N/A - Device Ordered VTE Drug Contraindication: Treatment Not Indicated
[2024-01-20 07:55] LABS: Lactate Dehydrogenase 287 U/L (122-220)
--- NOTE | 2024-01-20 08:27 | P.CONPL_ITS ---
History of Present Illness History of Present Illness Consult date: 01/20/24 Chief complaint: Dyspnea Narrative: This is an inpatient pulmonary consultation. The information was gathered from the chart, not able to gather any information from the patient due to altered mentation.The patient is a 78-year-old female with pertinent history of former tobacco use disorder, bipolar disorder, paroxysmal atrial fibrillation on anticoagulation, who was brought to the emergency department for evaluation of dyspnea. The daughter states that patient has been dyspneic with exertion that has been ongoing for the last 6 months. It has been progressive in onset. Daughter also reports that patient has been wheezing. No diagnosis of COPD or asthma and patient is not on home inhalers. On the day of presentation patient also complained of back pain and had an episode of bowel incontinence. Patient's was unable to take care of the patient and patient was sent to the ER for further evaluation. She does complain of dyspnea at the time of my examination. She was found to be hypoxic and given breathing treatments, now requiering 10L oxymask. The patient did have a CT scan of the chest which I personally reviewed. 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 In addition to that she had some pleural-based disease. She did have blood gas while she was in a hospital in her acid-base status stable. However, based on the fact that her mentation continues to be abnormal will go ahead and repeat the venous blood gas this time. Review of Systems 2 Review of Systems: Yes Unobtainable due to mental condition and Unobtainable due to mental status PMFSH Past Medical History Medical History (Updated 01/20/24 @ 08:33 by Miguel Trevizo MD) COPD (chronic obstructive pulmonary disease) PAF (paroxysmal atrial fibrillation) Vaginal pain Gait instability Hypertension Intertrigo Obesity (BMI 30-39.9) Bipolar disorder Anemia Allergic rhinitis Acquired hypothyroidism Pure hypercholesterolemia Diabetes mellitus GERD without esophagitis Pain of left lower extremity High bilirubin Hx of strabismus Hx of diabetes insipidus History of vitamin D deficiency Family History Family History Father History of cerebral hemorrhage Mother History of cerebral hemorrhage Sister Breast cancer Surgical History Surgical History (Updated 01/20/24 @ 06:42 by Alejandra Roach MD) Hx of colonoscopy History of eye surgery History of left breast biopsy Hx of dilation and curettage Hx of cataract surgery (~07/2017) Social History Social History Household Members: Spouse Housing: Apartment Do you presently have visiting nurse or other home services: No Alcohol intake: never Patient Tobacco Use Status: Former Tobacco user Tobacco use type: Cigarette Years Smoked: 20 Smoked in Last 30 Days: No e-Cigarette/Vaping Use: Never Used Patient Interested in Nicotine Replacement: No Patient Given Instructions on How to Stop Smoking: No Second Hand Smoke Exposure: No Use of substances other than those prescribed or required for medical reasons: No Currently Displaying Signs/Symptoms of Drug Intoxication Withdrawal: No Any prior treatment program specific to substance use: No Have you been hit, kicked, punched, or otherwise hurt by someone within the past year? If so, by whom?: No Do you feel safe in your current relationship?: Yes Is there a partner from a previous relationship who is making you feel unsafe now?: No Are you made to feel afraid or neglected: No Advance Directives: Yes Advance Directives Information Provided: No Advance Directives on File: Yes Advance Directives Date on File: 08/24/20 Do you have a plan to hurt others: No Plan Recently lost weight without trying: Unsure Eating poorly because of decreased appetite: No Nutrition Risks: No Nutritional Risk Patient : No : No Poor oral hygiene: No service: No Current occupational status: retired Cognitive needs: Yes (wheelchair) Hearing needs: No Vision needs: Yes (reading glasses) Meds Allergies Allergy/AdvReac Type Severity Reaction Status Date / Time amoxicillin [Amoxicillin] Allergy Intermediate SWELLING, Verified 01/19/24 21:51 rash Sulfa (Sulfonamide Allergy Intermediate itching & Verified 01/19/24 21:51 Antibiotics) bruising codeine [CODEINE] Allergy Unknown RASH Verified 01/19/24 21:51 dicyclomine Allergy Unknown Unknown Verified 01/19/24 21:51 lidocaine [LIDOCAINE] Allergy Unknown UNKNOWN Verified 01/19/24 21:51 lithium [LITHIUM] AdvReac Severe NEPHROGENIC Verified 01/19/24 21:51 DIABETES INSIPIDUS meclizine [Meclizine] AdvReac Intermediate INCREASES Verified 01/19/24 21:51 DIZZINESS simvastatin [SIMVASTATIN] AdvReac Intermediate MYALGIAS Verified 01/19/24 21:51 metronidazole [METRONIDAZOLE] AdvReac Mild FLU LIKE Verified 01/19/24 21:51 SYMPTOMS acyclovir AdvReac Unknown Unknown Verified 01/19/24 21:51 dulaglutide [From Trulicity] AdvReac Unknown dizziness, Verified 01/19/24 21:51 tongue swollen semaglutide [From Ozempic] AdvReac Unknown Dizziness, Verified 01/19/24 21:51 problems remembering Active Medications: Current Medications Acetaminophen (Acetaminophen 325 Mg Tablet) 650 mg PO Q6H PRN PRN Reason: Pain, Mild (Pain Scale 1-3), fever or headache Albuterol/Ipratropium (Albuterol/Iprat 2.5/0.5mg 3 Ml Ampul.Neb) 3 ml INHALE RQ4H WHILE AWAKE [facility] Last Admin: 01/20/24 07:33 Dose: Not Given Albuterol/Ipratropium (Albuterol/Iprat 2.5/0.5mg 3 Ml Ampul.Neb) 3 ml INHALE Q4H PRN PRN Reason: Wheezing Calcium Carbonate (Calcium Carbonate 750 Mg Tab.Chew) 750 mg PO Q4H PRN PRN Reason: Heartburn Glucose (Glucose Gel 15 Gm Gel..Gram.) 15 gm PO Q15M PRN; Protocol PRN Reason: per Hypoglycemia Standing Ord. Dextrose (D10) 250 mls @ 750 mls/hr IV Q15M PRN; Protocol PRN Reason: per Hypoglycemia Standing Ord. Magnesium Hydroxide (Milk Of Magnesia 30 Ml Oral.Susp) 30 ml PO DAILY PRN PRN Reason: Constipation Melatonin (Melatonin 3 Mg Tablet) 6 mg PO BEDTIME PRN PRN Reason: Insomnia Methylprednisolone Sodium Succinate (Methylprednisolone Sod Succ 40 Mg/Ml Vial) 40 mg IVPUSH Q12H [facility] Last Admin: 01/20/24 03:34 Dose: 40 mg Ondansetron HCl (Ondansetron Hcl 4 Mg/2 Ml Vial) 4 mg IVPUSH Q8H PRN PRN Reason: Nausea and Vomiting Sodium Chloride (0.9 % Sodium Chloride Flush 3 Ml Syringe) 3 ml IVFLUSH QSHIFT [facility] Home Medications ?Medication ?Instructions ?Recorded ?Confirmed ?Last Taken ?Type lancing device with lancets kit #1 ea 05/11/20 12/05/23 Unknown History (OneTouch Delica Lancing Device kit) buspirone 5 mg tablet 5 mg PO BID anxiety 03/01/22 12/05/23 Unknown History divalproex 500 mg tablet,extended 500 mg PO BID 03/01/22 12/05/23 Unknown History release 24 hr loratadine 10 mg tablet 10 mg PO DAILY PRN ALLERGIES 03/27/23 12/05/23 Unknown History meclizine 25 mg tablet 25 mg PO DAILY PRN MOTION 03/27/23 12/05/23 Unknown History SICKNESS/NAUSEA aripiprazole 5 mg tablet 5 mg PO DAILY 05/20/23 12/05/23 Unknown History risperidone 2 mg tablet 2 mg PO BID 05/20/23 12/05/23 Unknown History linagliptin 5 mg tablet (Tradjenta) 5 mg PO DAILY 12/06/23 12/06/23 Unknown History lorazepam 1 mg tablet 1 mg PO BID PRN 12/06/23 12/06/23 Unknown History perphenazine 4 mg tablet 4 mg PO QAM 12/06/23 12/06/23 Unknown History Physical Exam 2 Vital Signs: Vital Signs: Last Vital Signs Temp 97.0 F 01/20/24 07:59 Pulse 72 01/20/24 07:59 Resp 20 01/20/24 07:59 BP 137/62 01/20/24 07:59 Pulse Ox 97 01/20/24 07:59 O2 Del Method Oxymask 01/20/24 07:59 O2 Flow Rate 10 01/20/24 07:59 BMI result Body Mass Index 34.7 Const: General: lethargic and tired appearing Orientation/consciousness: l ethargic HEENT: Head: Yes normocephalic Neck: Neck: Yes supple Chest: Chest palpation & inspection: normal inspection of the chest Resp: Effort & Inspection: normal respiratory effort Auscultation: d iminished lung sounds Cardio: Heart sounds: S1 normal heart sound present and S2 normal heart sound present GI: Palpation (GI): Soft to palpation Skin: General skin exam: no rashes or lesions noted Extrem: General: Yes no clubbing, cyanosis or edema Results Laboratory Findings 01/20/24 06:01 01/20/24 06:01 Abnormal lab findings: Abnormal Labs 01/19/24 01/19/24 01/19/24 22:05 22:28 22:31 WBC RBC 4.07 L MCV 98.8 H MPV 8.5 L Immature Gran % (Auto) 1.2 H Neut % (Auto) 74.3 H Lymph % (Auto) 17.2 L Lymph # (Auto) Abs Immat Gran (auto) 0.12 H Absolute Neuts (auto) VBG HCO3 32 H Random Glucose 163 H Lactate Dehydrogenase 01/20/24 06:01 WBC 13.4 H RBC 3.84 L MCV 102.3 H MPV 8.9 L Immature Gran % (Auto) 1.0 H Neut % (Auto) 87.4 H Lymph % (Auto) 8.5 L Lymph # (Auto) 1.1 L Abs Immat Gran (auto) 0.13 H Absolute Neuts (auto) 11.7 H VBG HCO3 Random Glucose 146 H Lactate Dehydrogenase 287 H Assessment and Plan (1) Mass of right lung: Status: Acute (2) Acute respiratory failure: Qualifiers: Respiratory failure complication: hypoxia Qualified Code(s): J96.01 - Acute respiratory failure with hypoxia Status: Acute (3) Altered mental state: Qualifiers: Altered mental status type: unspecified Qualified Code(s): R41.82 - Altered mental status, unspecified Status: Acute (4) PAF (paroxysmal atrial fibrillation): Status: Acute (5) COPD (chronic obstructive pulmonary disease): Qualifiers: COPD type: chronic bronchitis Chronic bronchitis type: simple Q ualified Code(s): J41.0 - Simple chronic bronchitis Status: Acute Plan The patient is not able to communicate clearly. Not clear how much is her baseline or she this is an acute altered mental status change. In the meantime the findings on the CT scan concerning for malignant process with metastatic disease. Indeed she may have a component of carcinomatosis which could result in worsening hypoxia. Her condition is guarded. Recommendations: Recheck venous blood gas to assess for hypercarbia Further evaluation for the altered mental status Hold the Eliquis for 2-[address]-guided biopsy when the patient is stable enough to do so of the right upper lobe mask. Agree with imaging of the brain to assess for metastatic disease to the brain specially with her altered mental status Continue respiratory therapy Continue oxygen to maintain a pulse ox above 90% The patient is DNR and is in guarded condition. Procedures Date of Service Date of Service: 01/20/24
[2024-01-20 08:31] LABS: Glucose, Whole Blood 143 mg/dL (60-115)
--- NOTE | 2024-01-20 09:00 | MHC.CM.PN ---
Patient is documented to be lethargic and upon entering the room, she appeared to be sleeping soundly and CM did not disturb her. CM attempted to call Primary Contact/HCP//Davis @ [phone] but his [employer]PERATOR through [facility]/Sarah answered instead. Patient lives in an apartment with her and she receives GANG SAW OPERATOR services Saturday-Saturday/2hours per day (Davis is active with the same agency and receives a GANG SAW OPERATOR Q Saturday & , 1hour each visit);hours are trying to be increased by Patient's Daughter. Patient uses a walker indoors and a w/c outside of the home. PCP is Dr. Brown Dickson.Home/resume said services vs STR pending PT Eval is the tentative plan and CM has initiated and will follow for dc planning. Patient's Daughter will transport if Patient dc's to home.
[2024-01-20 09:09] LABS: Venous Blood Gas Refer to POC result
[2024-01-20 09:10] LABS: VBG Base Excess 4.6 mmol/L; VBG HCO3 28 mmol/L (22-26); VBG pCO2 39 mmHg; VBG pH 7.46 (7.32-7.43); VBG pO2 194 mmHg
[2024-01-20] MEDS: 0.9 % Sodium Chloride Flush 3 ML SYRINGE IVFLUSH ×2 (09:44→17:22)
--- NOTE | 2024-01-20 10:20 | PHA.MEDREC ---
Pharmacy Consult ? Medication Reconciliation Pharmacy has completed the medication reconciliation. Spoke with patients who helps patient with their medications.
--- NOTE | 2024-01-20 10:53 | MHC.CM.PN ---
Per ROUNDS discussion, Patient will be evaluated for Capacity; dc plan is pending at this time and CM will follow.
[2024-01-20] MEDS: Gabapentin 100 MG CAPSULE PO ×3 (11:05→21:39)
[2024-01-20] MEDS: Ferrous Sulfate 324 MG TABLET.DR PO (11:05)
[2024-01-20] MEDS: risperiDONE 2 MG TABLET PO ×2 (11:05→21:39)
[2024-01-20] MEDS: Metoprolol Succinate ER 25 MG TAB.ER.24H PO (11:05)
[2024-01-20] MEDS: busPIRone HCl 5 MG TABLET PO ×2 (11:05→21:39)
[2024-01-20] MEDS: Cholecalciferol (Vitamin D3) 25 MCG TABLET PO (11:05)
[2024-01-20] MEDS: Divalproex Sodium ER 500 MG TAB.ER.24H PO ×2 (11:05→21:39)
[2024-01-20] MEDS: 0.9 % Sodium Chloride 1,000 ML 100 ML IVCONT ×2 (11:06→21:42)
[2024-01-20 12:38] LABS: Glucose, Whole Blood 219 mg/dL (60-115)
[2024-01-20] MEDS: Insulin Lispro 100 UNIT/ML 3 ML VIAL SUBCUT ×3 (13:14→21:39)
[2024-01-20] MEDS: Albuterol/Iprat 2.5/0.5MG 3 ML AMPUL.NEB INHALE ×2 (15:10→20:33)
[2024-01-20 16:28] LABS: Glucose, Whole Blood 190 mg/dL (60-115)
--- NOTE | 2024-01-20 17:08 | PM.PSYCN ---
History of Present Illness Date of Service: 01/20/2024 Chief Complaint: Dyspnea Reason for Consult: capacity re w/u for mets Requesting physician: Denise Quijano Discussed with referring provider: Yes HPI Narrative: per 01/19 hospitalist note: 78-year-old female with pertinent history of former tobacco use disorder, bipolar disorder, paroxysmal atrial fibrillation on anticoagulation, hypothyroidism, insulin-dependent diabetes mellitus, mixed hyperlipidemia admitted for acute hypoxemic respiratory failure due to COPD exacerbation found to have new right upper lobe and paratracheal mass. pt reportedly refusing further w/u for mets, capacity questioned. on interview with pt, pt pleasant, calm, cooperative, engaging. MD repeatedly attempted to discuss ED radiographic findings with pt and to educate her regarding the notable findings. pt was repeatedly unable to recall or provide the salient radiographic findings despite MD's educating her and reviewing the information with her numerous times. she was also able to recall only 1 of 3 words at 3 minutes. Past Psychiatric History: bipolar disorder taking depakote, abilify, buspar, gabapentin, synthroid, ativan, risperidone [facility] Medical History (Updated 01/20/24 @ 08:33 by Miguel Trevizo MD) COPD (chronic obstructive pulmonary disease) PAF (paroxysmal atrial fibrillation) Vaginal pain Gait instability Hypertension Intertrigo Obesity (BMI 30-39.9) Bipolar disorder Anemia Allergic rhinitis Acquired hypothyroidism Pure hypercholesterolemia Diabetes mellitus GERD without esophagitis Pain of left lower extremity High bilirubin Hx of strabismus Hx of diabetes insipidus History of vitamin D deficiency Surgical History (Updated 01/20/24 @ 06:42 by Alejandra Roach MD) Hx of colonoscopy History of eye surgery History of left breast biopsy Hx of dilation and curettage Hx of cataract surgery (~07/2017) Diagnostics Vital Signs (24Hr): Vital Signs - 24 hr 01/19/24 21:43 01/19/24 21:57 01/19/24 22:53 Temperature 98.1 F Pulse Rate 68 66 Respiratory Rate 14 18 Blood Pressure 138/56 L Pulse Oximetry 87 L 94 Oxygen Delivery Method Room Air Nasal Cannula Oxygen Flow Rate 2 01/20/24 00:20 01/20/24 00:45 01/20/24 01:00 Temperature Pulse Rate 69 Respiratory Rate 14 Blood Pressure 122/59 L 91/46 L Pulse Oximetry 92 85 L 95 Oxygen Delivery Method Nasal Cannula Nasal Cannula Oxymask Oxygen Flow Rate 2 2 10 01/20/24 03:07 01/20/24 05:00 01/20/24 07:59 Temperature 97.6 F 97.5 F 97.0 F Pulse Rate 65 65 72 Respiratory Rate 16 17 20 Blood Pressure 104/51 L 128/57 L 137/62 Pulse Oximetry 94 95 97 Oxygen Delivery Method Oxymask Oxymask Oxymask Oxygen Flow Rate 10 10 10 01/20/24 10:54 01/20/24 11:05 01/20/24 15:10 Temperature 97.0 F Pulse Rate 72 72 72 Respiratory Rate 20 17 Blood Pressure 123/62 137/62 Pulse Oximetry 92 Oxygen Delivery Method Oxymask Oxygen Flow Rate 10 01/20/24 15:43 Temperature 97.2 F Pulse Rate 71 Respiratory Rate 20 Blood Pressure 128/62 Pulse Oximetry 92 Oxygen Delivery Method Nasal Cannula Oxygen Flow Rate 5 BMI result Body Mass Index 34.7 Labs 01/20/24 06:01 01/20/24 06:01 Labs: Laboratory Results - last 48 hr 01/19/24 01/19/24 01/19/24 22:05 22:28 22:31 WBC 10.3 RBC 4.07 L Hgb 13.3 Hct 40.2 MCV 98.8 H MCH 32.7 MCHC 33.1 RDW 13.2 Plt Count 207 MPV 8.5 L Immature Gran % (Auto) 1.2 H Neut % (Auto) 74.3 H Lymph % (Auto) 17.2 L [place] % (Auto) 6.1 Eos % (Auto) 1.0 Baso % (Auto) 0.2 Lymph # (Auto) 1.8 [place] # (Auto) 0.6 Eos # (Auto) 0.1 Baso # (Auto) 0.0 Abs Immat Gran (auto) 0.12 H Absolute Neuts (auto) 7.7 Absolute Nucleated RBC 0.000 Nucleated RBC % (auto) 0.0 VBG pH 7.42 VBG pCO2 48 VBG pO2 46 VBG HCO3 32 H VBG O2 Saturation 71.0 VBG Base Excess 6.7 Sodium 141 Potassium 4.5 Chloride 103 Carbon Dioxide 26 Anion Gap 17 BUN 11 Creatinine 0.85 Estim Creat Clear Calc 66.1 Estimated GFR > 60 POC Glucose Random Glucose 163 H Calcium 9.3 Total Bilirubin 0.5 AST 15 ALT 13 Alkaline Phosphatase 73 Lactate Dehydrogenase Troponin I High Sens < 2.7 B-Natriuretic Peptide < 10 Total Protein 7.1 Albumin 4.0 Carcinoembryonic Ag Urine Color Urine Appearance Urine pH Ur Specific Porter Urine Protein Urine Glucose (UA) Urine Ketones Urine Blood Urine Nitrite Ur Leukocyte Esterase Influenza Type A (PCR) NEGATIVE Influenza Type B (PCR) NEGATIVE RSV RNA Qual (PCR) NEGATIVE SARS-CoV-2 RNA (RT-PCR) NEGATIVE 01/20/24 01/20/24 01/20/24 01:34 06:01 07:59 WBC 13.4 H RBC 3.84 L Hgb 12.6 Hct 39.3 MCV 102.3 H MCH 32.8 MCHC 32.1 RDW 13.4 Plt Count 179 MPV 8.9 L Immature Gran % (Auto) 1.0 H Neut % (Auto) 87.4 H Lymph % (Auto) 8.5 L [place] % (Auto) 2.6 Eos % (Auto) 0.2 Baso % (Auto) 0.3 Lymph # (Auto) 1.1 L [place] # (Auto) 0.4 Eos # (Auto) 0.0 Baso # (Auto) 0.0 Abs Immat Gran (auto) 0.13 H Absolute Neuts (auto) 11.7 H Absolute Nucleated RBC 0.000 Nucleated RBC % (auto) 0.0 VBG pH VBG pCO2 VBG pO2 VBG HCO3 VBG O2 Saturation VBG Base Excess Sodium 139 Potassium 4.6 Chloride 103 Carbon Dioxide 28 Anion Gap 13 BUN 11 Creatinine 0.85 Estim Creat Clear Calc 66.3 Estimated GFR > 60 POC Glucose 143 H Random Glucose 146 H Calcium 8.9 Total Bilirubin AST ALT Alkaline Phosphatase Lactate Dehydrogenase 287 H Troponin I High Sens B-Natriuretic Peptide Total Protein Albumin Carcinoembryonic Ag 2.80 Urine Color Yellow Urine Appearance Clear Urine pH 6.5 Ur Specific [place] 1.025 Urine Protein Negative Urine Glucose (UA) Negative Urine Ketones Trace Urine Blood Negative Urine Nitrite Negative Ur Leukocyte Esterase Negative Influenza Type A (PCR) Influenza Type B (PCR) RSV RNA Qual (PCR) SARS-CoV-2 RNA (RT-PCR) 01/20/24 01/20/24 01/20/24 09:01 12:33 16:11 WBC RBC Hgb Hct MCV MCH MCHC RDW Plt Count MPV Immature Gran % (Auto) Neut % (Auto) Lymph % (Auto) [place] % (Auto) Eos % (Auto) Baso % (Auto) Lymph # (Auto) [place] # (Auto) Eos # (Auto) Baso # (Auto) Abs Immat Gran (auto) Absolute Neuts (auto) Absolute Nucleated RBC Nucleated RBC % (auto) VBG pH 7.46 H VBG pCO2 39 VBG pO2 194 VBG HCO3 28 H VBG O2 Saturation 99.0 VBG Base Excess 4.6 Sodium Potassium Chloride Carbon Dioxide Anion Gap BUN Creatinine Estim Creat Clear Calc Estimated GFR POC Glucose 219 H 190 H Random Glucose Calcium Total Bilirubin AST ALT Alkaline Phosphatase Lactate Dehydrogenase Troponin I High Sens B-Natriuretic Peptide Total Protein Albumin Carcinoembryonic Ag Urine Color Urine Appearance Urine pH Ur Specific [place] Urine Protein Urine Glucose (UA) Urine Ketones Urine Blood Urine Nitrite Ur Leukocyte Esterase Influenza Type A (PCR) Influenza Type B (PCR) RSV RNA Qual (PCR) SARS-CoV-2 RNA (RT-PCR) Imaging Radiology Impressions: ITS Impressions Chest X-Ray 01/19/24 22:24 IMPRESSION: New soft tissue attenuation in the right paratracheal region, suspicious for a mediastinal mass. Contrast-enhanced CT has already been ordered for further evaluation Hip/Pelvis X-Ray 01/19/24 22:24 IMPRESSION: No acute findings identified. Degenerative changes of the hips, right greater than left. Lumbar Spine X-Ray 01/19/24 22:24 IMPRESSION: 1. Slight loss of height in the superior endplate of L1, age-indeterminate. 2. Grade 1 anterolistheses of L4 on L5, favored to be chronic/degenerative in nature in the setting of severe lower lumbar facet arthropathy. Chest CT 01/19/24 23:45 IMPRESSION: 1. Right paratracheal mediastinal mass measuring up to 5.4 cm, suspicious for metastatic disease given the pulmonary findings described below, or potentially a primary neoplasm such as lymphoma. Further workup recommended which may include tissue sampling. 2. Focal masslike opacity in the anterior apical right upper lobe measuring up to 2.8 cm, concerning for malignancy such as primary lung cancer. Further workup with tissue sampling is recommended. A nearby subpleural nodule measuring 6 mm is suspicious for satellite nodule. 3. Multiple right pleural masses, suspicious for metastatic disease. 4. Trace right pleural effusion. 5. Chronic left lower lobe nodule with internal calcification, favoring a benign etiology. 6. Slight superior endplate height loss and L1, age indeterminate. Acute endplate fracture cannot be excluded in the proper clinical setting. Mental Status Exam Mental Status Exam Narrative: supine in hospital bed, NC inserted. wearing hospital ila. disheveled. no PMA/PMR. cooperative. speech nml rate, amount, loudness, tone, latency. thoughts linear in response to questions, spontaneously digressive. no delusions or paranoia evident. affect constricted, normo-intense, non-labile. mood very good. denies SI/HI/AVH. Medications Medications Current Medications Acetaminophen (Acetaminophen 325 Mg Tablet) 650 mg PO Q6H PRN PRN Reason: Pain, Mild (Pain Scale 1-3), fever or headache Albuterol/Ipratropium (Albuterol/Iprat 2.5/0.5mg 3 Ml Ampul.Neb) 3 ml INHALE RQ4H WHILE AWAKE [facility] Last Admin: 01/20/24 15:10 Dose: 3 ml Albuterol/Ipratropium (Albuterol/Iprat 2.5/0.5mg 3 Ml Ampul.Neb) 3 ml INHALE Q4H PRN PRN Reason: Wheezing Aripiprazole (Aripiprazole 2 Mg Tablet) 2 mg PO DAILY [facility] Ascorbic Acid (Ascorbic Acid 500 Mg Tablet) 500 mg PO DAILY [facility] Atorvastatin Calcium (Atorvastatin Calcium 40 Mg Tablet) 40 mg PO BEDTIME [facility] Buspirone HCl (Buspirone Hcl 5 Mg Tablet) 5 mg PO BID [facility] Last Admin: 01/20/24 11:05 Dose: 5 mg Calcium Carbonate (Calcium Carbonate 750 Mg Tab.Chew) 750 mg PO Q4H PRN PRN Reason: Heartburn Divalproex Sodium (Divalproex Sodium Er 500 Mg Tab.Er.24h) 500 mg PO BID [facility] Last Admin: 01/20/24 11:05 Dose: 500 mg Enoxaparin Sodium (Enoxaparin Sodium 100 Mg/Ml Syringe) 100 mg 1 mg/kg (100 mg) SUBCUT Q12H [facility] Ferrous Sulfate (Ferrous Sulfate 324 Mg Tablet.Dr) 324 mg PO DAILY [facility] Last Admin: 01/20/24 11:05 Dose: 324 mg Gabapentin (Gabapentin 100 Mg Capsule) 100 mg PO TID [facility] Last Admin: 01/20/24 11:05 Dose: 100 mg Glucose (Glucose Gel 15 Gm Gel..Gram.) 15 gm PO Q15M PRN; Protocol PRN Reason: per Hypoglycemia Standing Ord. Dextrose (D10) 250 mls @ 750 mls/hr IV Q15M PRN; Protocol PRN Reason: per Hypoglycemia Standing Ord. Sodium Chloride (Ns) 1,000 mls @ 100 mls/hr IVCONT .Q10H [facility] Last Admin: 01/20/24 11:06 Dose: 100 mls/hr Insulin Glargine (Insulin Glargine,Hum.Rec.Anlog 100 Unit/Ml 10 Ml Vial) 18 unit SUBCUT BEDTIME [facility] Insulin Human Lispro (Insulin Lispro 100 Unit/Ml 3 Ml Vial) 5 unit SUBCUT QIDACHS [facility] Last Admin: 01/20/24 13:14 Dose: 5 unit Levothyroxine Sodium (Levothyroxine Sodium 100 Mcg Tablet) 100 mcg PO DAILY@0600 [facility] Lorazepam (Lorazepam 1 Mg Tablet) 1 mg PO BID PRN PRN Reason: Anxiety Magnesium Hydroxide (Milk Of Magnesia 30 Ml Oral.Susp) 30 ml PO DAILY PRN PRN Reason: Constipation Melatonin (Melatonin 3 Mg Tablet) 6 mg PO BEDTIME PRN PRN Reason: Insomnia Methylprednisolone Sodium Succinate (Methylprednisolone Sod Succ 40 Mg/Ml Vial) 40 mg IVPUSH Q12H [facility] Last Admin: 01/20/24 03:34 Dose: 40 mg Metoprolol Succinate (Metoprolol Succinate Er 25 Mg Tab.Er.24h) 25 mg PO DAILY [facility]; Protocol Last Admin: 01/20/24 11:05 Dose: 25 mg Nystatin (Nystatin Powder 15 Gm Bottle) 1 appl TOPICAL BID PRN; Protocol PRN Reason: rash under breasts Nystatin (Nystatin Oral Susp 500,000 Unit/5 Ml Oral.Susp) 500,000 unit BUCCAL BID PRN; Protocol PRN Reason: oral thrush Omeprazole (Omeprazole 20 Mg Capsule.Dr) 20 mg PO DAILY@0630 [facility] Ondansetron HCl (Ondansetron Hcl 4 Mg/2 Ml Vial) 4 mg IVPUSH Q8H PRN PRN Reason: Nausea and Vomiting Oxybutynin Chloride (Oxybutynin Chloride Er 5 Mg Tab.Er.24) 10 mg PO DAILY [facility] Risperidone (Risperidone 2 Mg Tablet) 2 mg PO BID [facility] Last Admin: 01/20/24 11:05 Dose: 2 mg Sodium Chloride (0.9 % Sodium Chloride Flush 3 Ml Syringe) 3 ml IVFLUSH QSHIFT [facility] Last Admin: 01/20/24 09:44 Dose: 3 ml Vitamin D (Cholecalciferol (Vitamin D3) 25 Mcg Tablet) 25 mcg PO DAILY [facility] Last Admin: 01/20/24 11:05 Dose: 25 mcg Allergies Allergies Allergy/AdvReac Type Severity Reaction Status Date / Time amoxicillin [Amoxicillin] Allergy Intermediate SWELLING, Verified 01/19/24 21:51 rash Sulfa (Sulfonamide Allergy Intermediate itching & Verified 01/19/24 21:51 Antibiotics) bruising codeine [CODEINE] Allergy Unknown RASH Verified 01/19/24 21:51 dicyclomine Allergy Unknown Unknown Verified 01/19/24 21:51 lidocaine [LIDOCAINE] Allergy Unknown UNKNOWN Verified 01/19/24 21:51 lithium [LITHIUM] AdvReac Severe NEPHROGENIC Verified 01/19/24 21:51 DIABETES INSIPIDUS meclizine [Meclizine] AdvReac Intermediate INCREASES Verified 01/19/24 21:51 DIZZINESS simvastatin [SIMVASTATIN] AdvReac Intermediate MYALGIAS Verified 01/19/24 21:51 metronidazole [METRONIDAZOLE] AdvReac Mild FLU LIKE Verified 01/19/24 21:51 SYMPTOMS acyclovir AdvReac Unknown Unknown Verified 01/19/24 21:51 dulaglutide [From Trulicity] AdvReac Unknown dizziness, Verified 01/19/24 21:51 tongue swollen semaglutide [From Ozempic] AdvReac Unknown Dizziness, Verified 01/19/24 21:51 problems remembering Assessment & Plan Assessment & Plan (1) COPD (chronic obstructive pulmonary disease): Qualifiers: COPD type: chronic bronchitis Chronic bronchitis type: simple Qualified Code(s): J41.0 - Simple chronic bronchitis Status: Acute Code(s): J44.9 - Chronic obstructive pulmonary disease, unspecified (2) Mass of right lung: Status: Acute Code(s): R91.8 - Other nonspecific abnormal finding of lung field (3) Hypoxia: Status: Acute Code(s): R09.02 - Hypoxemia (4) Bipolar disorder: Qualifiers: Active/Remission status: currently active Current bipolar episode type: mixed Current episode severity: unspecified Qualified Code(s): F31.60 - Bipolar disorder, current episode mixed, unspecified Status: Acute Code(s): F31.9 - Bipolar disorder, unspecified Plan unclear if pt is delirious or suffering from a psychogenic focal amnesia, but whatever the case is unable to learn or retain new information regarding her present medical condition sufficiently to have preserved capacity to make decisions in its management. pt lacks decision-making capacity. HCP should be invoked. Total time managing care of this patient today _55___ minutes.
[2024-01-20] MEDS: Enoxaparin Sodium 100 MG/ML SYRINGE SUBCUT (17:21)
[2024-01-20] MEDS: LORazepam 2 MG/ML VIAL 1 MG IVPUSH (17:22)
[2024-01-20 19:59] LABS: Glucose, Whole Blood 233 mg/dL (60-115)
[2024-01-20 21:13] LABS: VBG Base Excess 5.6 mmol/L; VBG HCO3 32 mmol/L (22-26); VBG pCO2 55 mmHg; VBG pH 7.37 (7.32-7.43); VBG pO2 80 mmHg
[2024-01-20 21:14] LABS: Venous Blood Gas Refer to POC result
[2024-01-20] MEDS: Acetaminophen 1,000 MG/100 ML PIGGYBACK 400 MG IV (21:22)
[2024-01-20] MEDS: Atorvastatin Calcium 40 MG TABLET PO (21:39)
[2024-01-20] MEDS: Insulin Glargine,Hum.rec.anlog 100 UNIT/ML 10 ML VIAL 18 UNIT SUBCUT (21:40)
[2024-01-21] VITALS (11 sets, daily range): BP systolic 118–155; BP diastolic 58–70; PULSE 61–70; RESP 18–20; TEMP 36–36.8; O2SAT 92–98
[2024-01-21 06:26] LABS: MANUAL DIFF FLAG NO
[2024-01-21] MEDS: methylPREDNISolone Sod Succ 40 MG/ML VIAL IVPUSH ×2 (06:37→15:06)
[2024-01-21] MEDS: Enoxaparin Sodium 100 MG/ML SYRINGE SUBCUT ×2 (06:40→17:02)
[2024-01-21 06:44] LABS: Basophils Percent Auto 0.1 % (0-2); Hematocrit 35.2 % (37.0-47.0); Hemoglobin 11.5 g/dl (12.0-16.0); Imm Gran Abs Auto 0.08 X10*3/uL (0.00-0.03); Imm Gran Pct Auto 0.9 % (0.0-0.4); Lymphocytes Absolute Auto 1.4 X10*3/uL (1.2-4.9); Lymphocytes Percent Auto 14.8 % (20-40); Mean Corpuscular HGB Conc 32.7 g/dl (31.0-35.0); Mean Corpuscular Hemoglobin 32.6 pg (27.0-33.0); Mean Corpuscular Volume 99.7 fL (80.0-98.0); Mean Platelet Volume 8.9 fL (9.4-12.3); Monocytes Absolute Auto 0.5 X10*3/uL (0.1-1.2); Monocytes Percent Auto 5.9 % (2-11); Neutrophils Absolute Auto 7.2 x10*3/uL (2.0-8.3); Neutrophils Percent Auto 78.3 % (45-73); Platelet Count 187 X10*3/uL (160-400); Red Blood Count 3.53 X10*6/uL (4.20-5.50); White Blood Count 9.2 X10*3/uL (4.8-10.8)
[2024-01-21 06:47] LABS: Anion Gap 14 (12-20); Blood Urea Nitrogen 20 mg/dL (9-16); Carbon Dioxide 29 mmol/L (22-29); Chloride 102 mmol/L (96-108); Creatinine Clr Calc Pharmacy 59.9; Estimated Glomerular Filt Rate 58; Glucose Random 192 mg/dL (60-115); Potassium 5.1 mmol/L (3.3-5.1); Sodium 140 mmol/L (135-145)
[2024-01-21] MEDS: Albuterol/Iprat 2.5/0.5MG 3 ML AMPUL.NEB INHALE ×4 (07:33→20:20)
[2024-01-21 07:41] LABS: Glucose, Whole Blood 172 mg/dL (60-115)
[2024-01-21] MEDS: Levothyroxine Sodium 100 MCG TABLET PO (08:11)
[2024-01-21] MEDS: oxyBUTYnin chloride ER 5 MG TAB.ER.24 10 MG PO (08:25)
[2024-01-21] MEDS: Metoprolol Succinate ER 25 MG TAB.ER.24H PO (08:25)
[2024-01-21] MEDS: ARIPiprazole 2 MG TABLET PO (08:25)
[2024-01-21] MEDS: Gabapentin 100 MG CAPSULE PO ×3 (08:26→20:31)
[2024-01-21] MEDS: Ascorbic Acid 500 MG TABLET PO (08:26)
[2024-01-21] MEDS: Divalproex Sodium ER 500 MG TAB.ER.24H PO ×2 (08:26→20:31)
[2024-01-21] MEDS: Cholecalciferol (Vitamin D3) 25 MCG TABLET PO (08:26)
[2024-01-21] MEDS: Insulin Lispro 100 UNIT/ML 3 ML VIAL SUBCUT ×4 (08:26→20:31)
[2024-01-21] MEDS: Ferrous Sulfate 324 MG TABLET.DR PO (08:26)
[2024-01-21] MEDS: risperiDONE 2 MG TABLET PO ×2 (08:26→20:31)
[2024-01-21] MEDS: busPIRone HCl 5 MG TABLET PO ×2 (08:26→20:31)
[2024-01-21] MEDS: 0.9 % Sodium Chloride 1,000 ML 100 ML IVCONT ×2 (08:26→18:40)
[2024-01-21] MEDS: 0.9 % Sodium Chloride Flush 3 ML SYRINGE IVFLUSH ×2 (08:27→15:06)
--- NOTE | 2024-01-21 09:32 | MHC.CM.PN ---
Patient has been deemed to not have capacity; CM will follow.
[2024-01-21 10:57] LABS: Glucose, Whole Blood 291 mg/dL (60-115)
[2024-01-21] MEDS: LORazepam 1 MG TABLET PO (11:21)
[2024-01-21] MEDS: iohexoL 350 MG/ML 75 ML INFUS..BTL 85 ML IV (12:01)
[2024-01-21] MEDS: Barium Sulfate Oral (Vanilla) 450 ML ORAL.SUSP 900 ML PO (12:01)
[2024-01-21] MEDS: Milk of Magnesia 30 ML ORAL.SUSP PO (15:06)
[2024-01-21 16:10] LABS: Glucose, Whole Blood 266 mg/dL (60-115)
--- NOTE | 2024-01-21 16:50 | P.PNIM_ITS ---
Subjective Subjective Date of Service: 01/21/24 Interval History: acute hypoxemic respiratory failure related to COPD with new right upper lobe and right paratracheal mass Review of Systems sob seems somewhat improving explained need for ct abd/mri brain mental status somewhat improving Physical Exam 2 Vital Signs: Vital Signs: Last Vital Signs Temp 96.9 F 01/21/24 15:24 Pulse 66 01/21/24 15:24 Resp 20 01/21/24 15:24 BP 151/69 H 01/21/24 15:24 Pulse Ox 98 01/21/24 15:24 O2 Del Method Nasal Cannula 01/21/24 15:24 O2 Flow Rate 6 01/21/24 15:24 BMI result Body Mass Index 34.7 Appearance: Alert.? Oriented X3.? cvs: rrr, [id number] , no murmur res: air entry somewhat diminshed at bases,has mild wheezing b/l abd: no rebound or guarding ,nt, bs present. ext pulses present , no cyanosis neuro: axo3 , nonfocal. Objective Data Active Medications Acetaminophen (Acetaminophen 325 Mg Tablet) 650 mg PO Q6H PRN PRN Reason: Pain, Mild (Pain Scale 1-3), fever or headache Albuterol/Ipratropium (Albuterol/Iprat 2.5/0.5mg 3 Ml Ampul.Neb) 3 ml INHALE RQ4H WHILE AWAKE [facility] Last Admin: 01/21/24 15:23 Dose: 3 ml Documented By: GENESIS Albuterol/Ipratropium (Albuterol/Iprat 2.5/0.5mg 3 Ml Ampul.Neb) 3 ml INHALE Q4H PRN PRN Reason: Wheezing Aripiprazole (Aripiprazole 2 Mg Tablet) 2 mg PO DAILY [facility] Last Admin: 01/21/24 08:25 Dose: 2 mg Documented By: CAROLE Ascorbic Acid (Ascorbic Acid 500 Mg Tablet) 500 mg PO DAILY [facility] Last Admin: 01/21/24 08:26 Dose: 500 mg Documented By: CAROLE Atorvastatin Calcium (Atorvastatin Calcium 40 Mg Tablet) 40 mg PO BEDTIME [facility] Last Admin: 01/20/24 21:39 Dose: 40 mg Documented By: KARELY Buspirone HCl (Buspirone Hcl 5 Mg Tablet) 5 mg PO BID [facility] Last Admin: 01/21/24 08:26 Dose: 5 mg Documented By: CAROLE Calcium Carbonate (Calcium Carbonate 750 Mg Tab.Chew) 750 mg PO Q4H PRN PRN Reason: Heartburn Divalproex Sodium (Divalproex Sodium Er 500 Mg Tab.Er.24h) 500 mg PO BID [facility] Last Admin: 01/21/24 08:26 Dose: 500 mg Documented By: CAROLE Enoxaparin Sodium (Enoxaparin Sodium 100 Mg/Ml Syringe) 100 mg 1 mg/kg (100 mg) SUBCUT Q12H [facility] Last Admin: 01/21/24 06:40 Dose: 100 mg Documented By: KARELY Ferrous Sulfate (Ferrous Sulfate 324 Mg Tablet.Dr) 324 mg PO DAILY [facility] Last Admin: 01/21/24 08:26 Dose: 324 mg Documented By: CAROLE Gabapentin (Gabapentin 100 Mg Capsule) 100 mg PO TID [facility] Last Admin: 01/21/24 15:06 Dose: 100 mg Documented By: CAROLE Glucose (Glucose Gel 15 Gm Gel..Gram.) 15 gm PO Q15M PRN; Protocol PRN Reason: per Hypoglycemia Standing Ord. Dextrose (D10) 250 mls @ 750 mls/hr IV Q15M PRN; Protocol PRN Reason: per Hypoglycemia Standing Ord. Sodium Chloride (Ns) 1,000 mls @ 100 mls/hr IVCONT .Q10H [facility] Last Admin: 01/21/24 15:11 Dose: Not Given Documented By: CAROLE Non-Admin Reason: bag still full Insulin Glargine (Insulin Glargine,Hum.Rec.Anlog 100 Unit/Ml 10 Ml Vial) 18 unit SUBCUT BEDTIME [facility] Last Admin: 01/20/24 21:40 Dose: 18 unit Documented By: KARELY Insulin Human Lispro (Insulin Lispro 100 Unit/Ml 3 Ml Vial) 5 unit SUBCUT QIDACHS [facility] Last Admin: 01/21/24 11:21 Dose: 5 unit Documented By: CAROLE Levothyroxine Sodium (Levothyroxine Sodium 100 Mcg Tablet) 100 mcg PO DAILY@0600 [facility] Last Admin: 01/21/24 08:11 Dose: 100 mcg Documented By: CAROLE Lorazepam (Lorazepam 1 Mg Tablet) 1 mg PO BID PRN PRN Reason: Anxiety Last Admin: 01/21/24 11:21 Dose: 1 mg Documented By: CAROLE Magnesium Hydroxide (Milk Of Magnesia 30 Ml Oral.Susp) 30 ml PO DAILY PRN PRN Reason: Constipation Last Admin: 01/21/24 15:06 Dose: 30 ml Documented By: CAROLE Melatonin (Melatonin 3 Mg Tablet) 6 mg PO BEDTIME PRN PRN Reason: Insomnia Methylprednisolone Sodium Succinate (Methylprednisolone Sod Succ 40 Mg/Ml Vial) 40 mg IVPUSH Q12H [facility] Last Admin: 01/21/24 15:06 Dose: 40 mg Documented By: CAROLE Metoprolol Succinate (Metoprolol Succinate Er 25 Mg Tab.Er.24h) 25 mg PO DAILY [facility]; Protocol Last Admin: 01/21/24 08:25 Dose: 25 mg Documented By: CAROLE Nystatin (Nystatin Powder 15 Gm Bottle) 1 appl TOPICAL BID PRN; Protocol PRN Reason: rash under breasts Nystatin (Nystatin Oral Susp 500,000 Unit/5 Ml Oral.Susp) 500,000 unit BUCCAL BID PRN; Protocol PRN Reason: oral thrush Omeprazole (Omeprazole 20 Mg Capsule.Dr) 20 mg PO DAILY@0630 [facility] Last Admin: 01/21/24 06:43 Dose: Not Given Documented By: KARELY Non-Admin Reason: Patient Refused Ondansetron HCl (Ondansetron Hcl 4 Mg/2 Ml Vial) 4 mg IVPUSH Q8H PRN PRN Reason: Nausea and Vomiting Oxybutynin Chloride (Oxybutynin Chloride Er 5 Mg Tab.Er.24) 10 mg PO DAILY [facility] Last Admin: 01/21/24 08:25 Dose: 10 mg Documented By: CAROLE Risperidone (Risperidone 2 Mg Tablet) 2 mg PO BID [facility] Last Admin: 01/21/24 08:26 Dose: 2 mg Documented By: CAROLE Sodium Chloride (0.9 % Sodium Chloride Flush 3 Ml Syringe) 3 ml IVFLUSH QSHIFT [facility] Last Admin: 01/21/24 15:06 Dose: 3 ml Documented By: CAROLE Vitamin D (Cholecalciferol (Vitamin D3) 25 Mcg Tablet) 25 mcg PO DAILY [facility] Last Admin: 08/06/24 08:26 Dose: 25 mcg Documented By: CAROLE Labs 01/21/24 06:16 01/21/24 06:16 Labs: Laboratory Results - last 24 hr 01/20/24 01/20/24 01/21/24 19:49 21:01 06:16 MCV 99.7 H MCH 32.6 MCHC 32.7 RDW 13.0 Plt Count 187 MPV 8.9 L Immature Gran % (Auto) 0.9 H Neut % (Auto) 78.3 H Lymph % (Auto) 14.8 L [place] % (Auto) 5.9 Eos % (Auto) 0.0 Baso % (Auto) 0.1 Lymph # (Auto) 1.4 [place] # (Auto) 0.5 Eos # (Auto) 0.0 Baso # (Auto) 0.0 Abs Immat Gran (auto) 0.08 H Absolute Neuts (auto) 7.2 Absolute Nucleated RBC 0.000 Nucleated RBC % (auto) 0.0 VBG pH 7.37 VBG pCO2 55 VBG pO2 80 VBG HCO3 32 H VBG O2 Saturation 95.0 VBG Base Excess 5.6 Anion Gap 14 Estim Creat Clear Calc 59.9 Estimated GFR 58 POC Glucose 233 H Random Glucose 192 H Calcium 9.0 01/21/24 01/21/24 01/21/24 07:35 10:46 16:05 MCV MCH MCHC RDW Plt Count MPV Immature Gran % (Auto) Neut % (Auto) Lymph % (Auto) [place] % (Auto) Eos % (Auto) Baso % (Auto) Lymph # (Auto) [place] # (Auto) Eos # (Auto) Baso # (Auto) Abs Immat Gran (auto) Absolute Neuts (auto) Absolute Nucleated RBC Nucleated RBC % (auto) VBG pH VBG pCO2 VBG pO2 VBG HCO3 VBG O2 Saturation VBG Base Excess Anion Gap Estim Creat Clear Calc Estimated GFR POC Glucose 172 H 291 H 266 H Random Glucose Calcium Assessment and Plan (1) COPD (chronic obstructive pulmonary disease): Status: Acute (2) Altered mental state: Status: Acute Plan 78-year-old female with pertinent history of former tobacco use disorder, bipolar disorder, paroxysmal atrial fibrillation on anticoagulation, hypothyroidism, insulin-dependent diabetes mellitus, mixed hyperlipidemia admitted for acute hypoxemic respiratory failure due to COPD exacerbation found to have new right upper lobe and paratracheal mass Acute hypoxic respiratory failure due to exacerbation of obstructive lung disease Likely has underlying COPD in the setting of former tobacco use. Imaging with right upper lobe mass and right paratracheal mass which may be contributing. continue nebs,steriods ,taper oxygen (titer to sats 90%) Right lung upper lobe and right paratracheal mass Suspicious for primary lung cancer with metastasis ct abd added oncology eval Paroxysmal atrial fibrillation-rate controlled Hold Eliquis due to possible biopsy per pulmonology times 2-3 days. Will initiate therapeutic Lovenox Continue metoprolol for rate control Bipolar disorder Continue home mood stabilizers Hypothyroidism:On Synthroid Insulin-dependent diabetes mellitus POC glucose, diabetic diet Humalog on sliding scale Hold metformin Mixed hyperlipidemia statin DVT prophylaxis: lovenox (therapeutic). Healthcare proxy is patient's , Davis, and son Adiel. Health care proxy invoked. Dicussed code status and would like to honor molst form- Full code,until further imaging to assess prognosis and evaluate treatment plan. ongoing hospital stay need for supplemental oxygen, evaluation of right lung mass (as above), which is not possible in a lesser acute setting. Quality Stroke Does the patient have a stroke diagnosis?: No VTE Prior VTE?: No VTE Risk Level:: Medical - moderate - high VTE Device Contraindication: N/A - Device Ordered VTE Drug Contraindication: Treatment Not Indicated
[2024-01-21 20:11] LABS: Glucose, Whole Blood 295 mg/dL (60-115)
[2024-01-21] MEDS: Atorvastatin Calcium 40 MG TABLET PO (20:31)
[2024-01-21] MEDS: Insulin Glargine,Hum.rec.anlog 100 UNIT/ML 10 ML VIAL 18 UNIT SUBCUT (20:32)
[2024-01-22] VITALS (9 sets, daily range): BP systolic 140–165; BP diastolic 67–77; PULSE 62–88; RESP 16–20; TEMP 36.2–36.6; O2SAT 89–97
[2024-01-22] MEDS: Enoxaparin Sodium 100 MG/ML SYRINGE SUBCUT ×2 (03:13→16:08)
[2024-01-22] MEDS: methylPREDNISolone Sod Succ 40 MG/ML VIAL IVPUSH ×2 (03:14→16:07)
[2024-01-22] MEDS: Acetaminophen 325 MG TABLET 650 MG PO (03:44)
[2024-01-22] MEDS: Omeprazole 20 MG CAPSULE.DR PO (03:49)
[2024-01-22] MEDS: Levothyroxine Sodium 100 MCG TABLET PO (03:49)
[2024-01-22] MEDS: 0.9 % Sodium Chloride 1,000 ML 100 ML IVCONT (05:34)
--- NOTE | 2024-01-22 05:35 | PC.NURSE ---
Pt AOx2, irritable at times, labile, refusing care at times, refusing to let this RN scan pt band to scan medications. Family bedside to intervene and attempting to diffuse situations. Pt uses walker to get to bedside commode, needs to be reminded to not use the walker to pull herself up from bed as it tips and is not steady enough. She also needs reminding to not fling herself back on the bed as she almost hit this RN w/the walker (definitely an accident on pts part). Camera in room, call butt within reach, bed alarm on.
[2024-01-22] MEDS: Albuterol/Iprat 2.5/0.5MG 3 ML AMPUL.NEB INHALE ×4 (07:38→19:31)
[2024-01-22 07:47] LABS: Glucose, Whole Blood 249 mg/dL (60-115)
[2024-01-22] MEDS: Divalproex Sodium ER 500 MG TAB.ER.24H PO ×2 (08:17→21:00)
[2024-01-22] MEDS: Insulin Lispro 100 UNIT/ML 3 ML VIAL SUBCUT ×5 (08:17→21:01)
[2024-01-22] MEDS: Ferrous Sulfate 324 MG TABLET.DR PO (08:18)
[2024-01-22] MEDS: Ascorbic Acid 500 MG TABLET PO (08:18)
[2024-01-22] MEDS: risperiDONE 2 MG TABLET PO ×2 (08:18→21:00)
[2024-01-22] MEDS: busPIRone HCl 5 MG TABLET PO ×2 (08:18→21:00)
[2024-01-22] MEDS: Gabapentin 100 MG CAPSULE PO ×3 (08:18→21:00)
[2024-01-22] MEDS: Metoprolol Succinate ER 25 MG TAB.ER.24H PO (08:18)
[2024-01-22] MEDS: oxyBUTYnin chloride ER 5 MG TAB.ER.24 10 MG PO (08:19)
[2024-01-22] MEDS: Cholecalciferol (Vitamin D3) 25 MCG TABLET PO (08:19)
[2024-01-22] MEDS: 0.9 % Sodium Chloride Flush 3 ML SYRINGE IVFLUSH ×3 (08:25→20:59)
--- NOTE | 2024-01-22 09:01 | MHC.CM.PN ---
Patient is active with Anupam MURPHY.
--- NOTE | 2024-01-22 10:32 | MHC.CM.PN ---
Per ROUNDS discussion, Patient is not yet medically cleared for dc (MRI of Brain); dc plan is still TBD and CM will continue to follow.
[2024-01-22 11:57] LABS: Glucose, Whole Blood 343 mg/dL (60-115)
[2024-01-22 15:46] LABS: Glucose, Whole Blood 345 mg/dL (60-115)
--- NOTE | 2024-01-22 15:50 | P.PNIM_ITS ---
Subjective Subjective Date of Service: 01/22/24 Interval History: acute hypoxemic respiratory failure related to COPD with new right upper lobe and right paratracheal mass Review of Systems sob improving still hypoxic mental status improving Physical Exam 2 Vital Signs: Vital Signs: Last Vital Signs Temp 97.6 F 01/22/24 11:25 Pulse 88 01/22/24 14:43 Resp 18 01/22/24 14:43 BP 140/67 H 01/22/24 11:25 Pulse Ox 91 L 01/22/24 11:25 O2 Del Method Nasal Cannula 01/22/24 11:25 O2 Flow Rate 7 01/22/24 11:25 BMI result Body Mass Index 34.7 Appearance: Alert.? Oriented X3.? cvs: [id number], [id number] , no murmur res: air entry somewhat diminshed at bases,has mild wheezing b/l abd: no rebound or guarding ,nt, bs present. ext pulses present , no cyanosis neuro: axo3 , nonfocal. Objective Data Active Medications Acetaminophen (Acetaminophen 325 Mg Tablet) 650 mg PO Q6H PRN PRN Reason: Pain, Mild (Pain Scale 1-3), fever or headache Last Admin: 01/22/24 03:44 Dose: 650 mg Documented By: WILL Albuterol/Ipratropium (Albuterol/Iprat 2.5/0.5mg 3 Ml Ampul.Neb) 3 ml INHALE RQ4H WHILE AWAKE [facility] Last Admin: 01/22/24 14:49 Dose: 3 ml Documented By: DONTE Albuterol/Ipratropium (Albuterol/Iprat 2.5/0.5mg 3 Ml Ampul.Neb) 3 ml INHALE Q4H PRN PRN Reason: Wheezing Aripiprazole (Aripiprazole 2 Mg Tablet) 2 mg PO DAILY [facility] Last Admin: 01/22/24 08:27 Dose: Not Given Documented By: MAYRA Non-Admin Reason: Patient Refused Ascorbic Acid (Ascorbic Acid 500 Mg Tablet) 500 mg PO DAILY [facility] Last Admin: 01/22/24 08:18 Dose: 500 mg Documented By: MAYRA Atorvastatin Calcium (Atorvastatin Calcium 40 Mg Tablet) 40 mg PO BEDTIME [facility] Last Admin: 01/21/24 20:31 Dose: 40 mg Documented By: WILL Buspirone HCl (Buspirone Hcl 5 Mg Tablet) 5 mg PO BID [facility] Last Admin: 01/22/24 08:18 Dose: 5 mg Documented By: MAYRA Calcium Carbonate (Calcium Carbonate 750 Mg Tab.Chew) 750 mg PO Q4H PRN PRN Reason: Heartburn Divalproex Sodium (Divalproex Sodium Er 500 Mg Tab.Er.24h) 500 mg PO BID [facility] Last Admin: 01/22/24 08:17 Dose: 500 mg Documented By: MAYRA Enoxaparin Sodium (Enoxaparin Sodium 100 Mg/Ml Syringe) 100 mg 1 mg/kg (100 mg) SUBCUT Q12H [facility] Last Admin: 01/22/24 03:13 Dose: 100 mg Documented By: WILL Ferrous Sulfate (Ferrous Sulfate 324 Mg Tablet.Dr) 324 mg PO DAILY [facility] Last Admin: 01/22/24 08:18 Dose: 324 mg Documented By: MAYRA Furosemide (Furosemide 20 Mg/2 Ml Vial) 20 mg IVPUSH ONCE ONE; Protocol Stop: 01/22/24 15:50 Gabapentin (Gabapentin 100 Mg Capsule) 100 mg PO TID [facility] Last Admin: 01/22/24 14:47 Dose: 100 mg Documented By: MAYRA Glucose (Glucose Gel 15 Gm Gel..Gram.) 15 gm PO Q15M PRN; Protocol PRN Reason: per Hypoglycemia Standing Ord. Glucose (Glucose Gel 15 Gm Gel..Gram.) 15 gm PO Q15M PRN; Protocol PRN Reason: per Hypoglycemia Standing Ord. Dextrose (D10) 250 mls @ 750 mls/hr IV Q15M PRN; Protocol PRN Reason: per Hypoglycemia Standing Ord. Dextrose (D10) 250 mls @ 750 mls/hr IV Q15M PRN; Protocol PRN Reason: per Hypoglycemia Standing Ord. Insulin Glargine (Insulin Glargine,Hum.Rec.Anlog 100 Unit/Ml 10 Ml Vial) 18 unit SUBCUT BEDTIME [facility] Last Admin: 01/21/24 20:32 Dose: 18 unit Documented By: WILL Insulin Human Lispro (Insulin Lispro 100 Unit/Ml 3 Ml Vial) 5 unit SUBCUT QIDACHS [facility] Last Admin: 01/22/24 12:05 Dose: 5 unit Documented By: MAYRA Comments: [address] anuel ramesh to follow sliding scale Insulin Human Lispro (Insulin Lispro 100 Unit/Ml 3 Ml Vial) 0 unit SUBCUT QIDACHS [facility]; Protocol Levothyroxine Sodium (Levothyroxine Sodium 100 Mcg Tablet) 100 mcg PO DAILY@0600 [facility] Last Admin: 01/22/24 03:49 Dose: 100 mcg Documented By: WILL Lorazepam (Lorazepam 1 Mg Tablet) 1 mg PO BID PRN PRN Reason: Anxiety Last Admin: 01/21/24 11:21 Dose: 1 mg Documented By: CAROLE Magnesium Hydroxide (Milk Of Magnesia 30 Ml Oral.Susp) 30 ml PO DAILY PRN PRN Reason: Constipation Last Admin: 01/21/24 15:06 Dose: 30 ml Documented By: CAROLE Melatonin (Melatonin 3 Mg Tablet) 6 mg PO BEDTIME PRN PRN Reason: Insomnia Methylprednisolone Sodium Succinate (Methylprednisolone Sod Succ 40 Mg/Ml Vial) 40 mg IVPUSH Q12H [facility] Last Admin: 01/22/24 03:14 Dose: 40 mg Documented By: WILL Metoprolol Succinate (Metoprolol Succinate Er 25 Mg Tab.Er.24h) 25 mg PO DAILY [facility]; Protocol Last Admin: 01/22/24 08:18 Dose: 25 mg Documented By: MAYRA Nystatin (Nystatin Powder 15 Gm Bottle) 1 appl TOPICAL BID PRN; Protocol PRN Reason: rash under breasts Nystatin (Nystatin Oral Susp 500,000 Unit/5 Ml Oral.Susp) 500,000 unit BUCCAL BID PRN; Protocol PRN Reason: oral thrush Omeprazole (Omeprazole 20 Mg Radha.) 20 mg PO DAILY@0630 [facility] Last Admin: 01/22/24 03:49 Dose: 20 mg Documented By: WILL Ondansetron HCl (Ondansetron Hcl 4 Mg/2 Ml Vial) 4 mg IVPUSH Q8H PRN PRN Reason: Nausea and Vomiting Oxybutynin Chloride (Oxybutynin Chloride Er 5 Mg Tab.Er.24) 10 mg PO DAILY [facility] Last Admin: 01/22/24 08:19 Dose: 10 mg Documented By: MAYRA Risperidone (Risperidone 2 Mg Tablet) 2 mg PO BID [facility] Last Admin: 01/22/24 08:18 Dose: 2 mg Documented By: MAYRA Sodium Chloride (0.9 % Sodium Chloride Flush 3 Ml Syringe) 3 ml IVFLUSH QSHIFT [facility] Last Admin: 01/22/24 14:47 Dose: 3 ml Documented By: MAYRA Vitamin D (Cholecalciferol (Vitamin D3) 25 Mcg Tablet) 25 mcg PO DAILY [facility] Last Admin: 01/22/24 08:19 Dose: 25 mcg Documented By: MAYRA Labs 01/21/24 06:16 01/21/24 06:16 Labs: Laboratory Results - last 24 hr 01/21/24 01/21/24 01/22/24 16:05 20:05 07:17 POC Glucose 266 H 295 H 249 H 01/22/24 01/22/24 11:27 15:37 POC Glucose 343 H 345 H Assessment and Plan (1) COPD (chronic obstructive pulmonary disease): Status: Acute (2) Altered mental state: Status: Acute Plan 78-year-old female with pertinent history of former tobacco use disorder, bipolar disorder, paroxysmal atrial fibrillation on anticoagulation, hypothyroidism, insulin-dependent diabetes mellitus, mixed hyperlipidemia admitted for acute hypoxemic respiratory failure due to COPD exacerbation found to have new right upper lobe and paratracheal mass Acute hypoxic respiratory failure due to exacerbation of obstructive lung disease Likely has underlying COPD in the setting of former tobacco use. Imaging with right upper lobe mass and right paratracheal mass which may be contributing. sob and mentation improving continue nebs,steriods , need oxygen titrate up (titer to sats 90%) will check vbg pulm following Right lung upper lobe and right paratracheal mass Suspicious for primary lung cancer with metastasis ct abd added oncology eval Paroxysmal atrial fibrillation-rate controlled Hold Eliquis due to possible biopsy per pulmonology times 2-3 days. Will initiate therapeutic Lovenox Continue metoprolol for rate control Bipolar disorder Continue home mood stabilizers Hypothyroidism:On Synthroid Insulin-dependent diabetes mellitus POC glucose, diabetic diet Humalog on sliding scale Hold metformin Mixed hyperlipidemia statin DVT prophylaxis: lovenox (therapeutic). Healthcare proxy is patient's , Davis, and son Adiel. Health care proxy invoked. Dicussed code status and would like to honor molst form- Full code,until further imaging to assess prognosis and evaluate treatment plan. ongoing hospital stay need for supplemental oxygen, evaluation of right lung mass (as above), which is not possible in a lesser acute setting. Quality Stroke Does the patient have a stroke diagnosis?: No VTE Prior VTE?: No VTE Risk Level:: Medical - moderate - high VTE Device Contraindication: N/A - Device Ordered VTE Drug Contraindication: Treatment Not Indicated
[2024-01-22] MEDS: Furosemide 20 MG/2 ML VIAL IVPUSH (16:07)
[2024-01-22 16:28] LABS: Venous Blood Gas Refer to POC result
[2024-01-22 16:29] LABS: VBG Base Excess 6.2 mmol/L; VBG HCO3 33 mmol/L (22-26); VBG pCO2 57 mmHg; VBG pH 7.36 (7.32-7.43); VBG pO2 68 mmHg
[2024-01-22 20:52] LABS: Glucose, Whole Blood 376 mg/dL (60-115)
[2024-01-22] MEDS: Atorvastatin Calcium 40 MG TABLET PO (21:00)
[2024-01-22] MEDS: Insulin Glargine,Hum.rec.anlog 100 UNIT/ML 10 ML VIAL 18 UNIT SUBCUT (21:01)
[2024-01-23] VITALS (8 sets, daily range): BP systolic 124–156; BP diastolic 56–69; PULSE 59–88; RESP 14–20; TEMP 36.1–37; O2SAT 91–99
[2024-01-23] MEDS: Acetaminophen 325 MG TABLET 650 MG PO (01:43)
[2024-01-23] MEDS: Enoxaparin Sodium 100 MG/ML SYRINGE SUBCUT ×2 (05:19→16:08)
[2024-01-23] MEDS: methylPREDNISolone Sod Succ 40 MG/ML VIAL IVPUSH ×2 (05:19→16:08)
[2024-01-23] MEDS: Omeprazole 20 MG CAPSULE.DR PO (05:19)
[2024-01-23] MEDS: Levothyroxine Sodium 100 MCG TABLET PO (06:22)
[2024-01-23] MEDS: Albuterol/Iprat 2.5/0.5MG 3 ML AMPUL.NEB INHALE (07:38)
[2024-01-23 07:57] LABS: Glucose, Whole Blood 260 mg/dL (60-115)
[2024-01-23] MEDS: Cholecalciferol (Vitamin D3) 25 MCG TABLET PO (08:43)
[2024-01-23] MEDS: Ferrous Sulfate 324 MG TABLET.DR PO (08:43)
[2024-01-23] MEDS: ARIPiprazole 2 MG TABLET PO (08:43)
[2024-01-23] MEDS: Metoprolol Succinate ER 25 MG TAB.ER.24H PO (08:43)
[2024-01-23] MEDS: oxyBUTYnin chloride ER 5 MG TAB.ER.24 10 MG PO (08:43)
[2024-01-23] MEDS: risperiDONE 2 MG TABLET PO ×2 (08:43→21:08)
[2024-01-23] MEDS: Ascorbic Acid 500 MG TABLET PO (08:43)
[2024-01-23] MEDS: Insulin Lispro 100 UNIT/ML 3 ML VIAL SUBCUT ×4 (08:44→21:04)
[2024-01-23] MEDS: Gabapentin 100 MG CAPSULE PO ×3 (08:44→21:06)
[2024-01-23] MEDS: Divalproex Sodium ER 500 MG TAB.ER.24H PO ×2 (08:44→21:06)
[2024-01-23] MEDS: busPIRone HCl 5 MG TABLET PO ×2 (08:44→21:06)
[2024-01-23] MEDS: 0.9 % Sodium Chloride Flush 3 ML SYRINGE IVFLUSH ×3 (08:45→21:08)
[2024-01-23 11:03] LABS: Glucose, Whole Blood 339 mg/dL (60-115)
[2024-01-23] MEDS: Insulin Lispro 100 UNIT/ML 3 ML VIAL 8 UNIT SUBCUT ×3 (11:31→21:03)
[2024-01-23] MEDS: Milk of Magnesia 30 ML ORAL.SUSP PO (11:31)
--- NOTE | 2024-01-23 12:55 | P.PNPL_ITS ---
Subjective Subjective Date of Service: 01/23/24 Interval history: The patient was seen on exam. She seems to be less confused now although she is still on a lot of oxygen requiring about 7 L via nasal cannula. She does have a component of sleep apnea. She may benefit from an in-lab sleep study as an outpatient. This may be contributing to some of the oxygen needs. In the meantime she is more awake. Her blood gas was reassuring without any evidence of any hypercarbia. Not clear was going with mentation. I did review again her CT scan of the chest she does have some atelectasis bilaterally. Some areas of emphysema. Then the larger masslike density in the right upper lobe and then a bulky mediastinal with another lesion on the left base. I did talk to the family. She is still in a lot of oxygen and doing a lung biopsy may resulting worsening respiratory symptoms. Therefore I do believe a PET scan will be helpful to better navigate the high CO biopsy with the last risk. They were agreeable to that. The patient should also have an in-lab sleep study. In meantime she needs these the oxygen. She needs to be out of bed and perform deep breathing exercises based on the fact that she has significant atelectasis on the scan. Patient also she continue with respiratory therapy. Objective Data Labs 01/21/24 06:16 01/21/24 06:16 Labs: Laboratory Results - last 24 hr 01/22/24 01/22/24 01/22/24 15:37 16:21 20:44 VBG pH 7.36 VBG pCO2 57 VBG pO2 68 VBG HCO3 33 H VBG O2 Saturation 92.0 VBG Base Excess 6.2 POC Glucose 345 H 376 H* 01/23/24 01/23/24 07:40 10:47 VBG pH VBG pCO2 VBG pO2 VBG HCO3 VBG O2 Saturation VBG Base Excess POC Glucose 260 H 339 H Review of Systems Constitutional: Reports fatigue, Reports malaise and Reports poor appetite Cardiovascular: Reports dyspnea on exertion Respiratory: Reports dyspnea on exertion and Reports wheezing Gastrointestinal: Reports loose stools Genitourinary: Reports no additional female genitourinary complaints Endocrine: Reports fatigue Allergic/Immunologic: Reports wheezing Physical Exam 2 Vital Signs: Vital Signs: Last Vital Signs Temp 97.6 F 01/23/24 11:07 Pulse 64 01/23/24 11:07 Resp 20 01/23/24 11:07 BP 130/65 01/23/24 11:07 Pulse Ox 96 01/23/24 11:07 O2 Del Method Nasal Cannula 01/23/24 11:07 O2 Flow Rate 7 01/23/24 11:07 BMI result Body Mass Index 34.7 Const: General: tired appearing HEENT: Head: Yes normocephalic Neck: Neck: Yes supple Chest: Chest palpation & inspection: normal inspection of the chest Resp: Effort & Inspection: normal respiratory effort Auscultation: d iminished lung sounds Cardio: Heart sounds: S1 normal heart sound present and S2 normal heart sound present GI: Palpation (GI): Soft to palpation Skin: General skin exam: no rashes or lesions noted Extrem: General: Yes no clubbing, cyanosis or edema Procedures Date of Service Date of Service: 01/23/24 Assessment and Plan Assessment and plan (1) COPD (chronic obstructive pulmonary disease): Status: Acute (2) Pulmonary nodules: Status: Acute (3) Mass of right lung: Status: Acute Plan Monitor oxygen requirements. At this point based on the high oxygen needs will be helpful to get a PET scan to directed to the best yield biopsy with less risk. However, will reassess tomorrow hopefully if she is doing better from an oxygenation standpoint will consider going directly to a biopsy if that is a possibility. Continue respiratory therapy Out of bed to the recliner with assistance and deep breathing exercises with incentive spirometer throughout the day Continue oxygen supplementation to maintain pulse ox above 88% Time Spent With Patient Time: Total time managing care of this patient today ____ minutes. Progress Note: Quality Stroke Does the patient have a stroke diagnosis?: No
--- NOTE | 2024-01-23 13:43 | MHC.CM.PN ---
CM met with /HCP/Davis and 2 other family members regarding PT's recommendation for STR. Davis's fist choice SNF is [facility] [place], who has accepted Patient and is initiating auth with [employer] today. CM will follow.
[2024-01-23] MEDS: LORazepam 2 MG/ML VIAL IVPUSH (14:08)
[2024-01-23] MEDS: gadobutroL 10 ML VIAL IVPUSH (15:08)
--- NOTE | 2024-01-23 16:07 | HO.PM.IMPN ---
Subjective Subjective Date of Service: 01/24/24 Interval History: acute hypoxemic respiratory failure related to COPD with new right upper lobe and right paratracheal mass Review of Systems sob improving still hypoxic mental status improving Physical Exam Vital Signs: Vital Signs: Last Vital Signs Temp 97.6 F 01/23/24 11:07 Pulse 64 01/23/24 11:07 Resp 20 01/23/24 11:07 BP 130/65 01/23/24 11:07 Pulse Ox 96 01/23/24 11:07 O2 Del Method Nasal Cannula 01/23/24 11:07 O2 Flow Rate 7 01/23/24 11:07 BMI result Body Mass Index 34.7 Appearance: Alert.? Oriented X3.? cvs: rrr, [id number] , no murmur res: air entry somewhat diminshed at bases,has mild wheezing b/l abd: no rebound or guarding ,nt, bs present. ext pulses present , no cyanosis neuro: axo3 , nonfocal. Objective Data Active Medications Acetaminophen (Acetaminophen 325 Mg Tablet) 650 mg PO Q6H PRN PRN Reason: Pain, Mild (Pain Scale 1-3), fever or headache Last Admin: 01/23/24 01:43 Dose: 650 mg Documented By: PHILIPPE Albuterol/Ipratropium (Albuterol/Iprat 2.5/0.5mg 3 Ml Ampul.Neb) 3 ml INHALE RQ4H WHILE AWAKE [facility] Last Admin: 01/23/24 15:07 Dose: Not Given Documented By: DONTE Non-Admin Reason: Not In Room Albuterol/Ipratropium (Albuterol/Iprat 2.5/0.5mg 3 Ml Ampul.Neb) 3 ml INHALE Q4H PRN PRN Reason: Wheezing Aripiprazole (Aripiprazole 2 Mg Tablet) 2 mg PO DAILY [facility] Last Admin: 01/23/24 08:43 Dose: 2 mg Documented By: MARGE Ascorbic Acid (Ascorbic Acid 500 Mg Tablet) 500 mg PO DAILY [facility] Last Admin: 01/23/24 08:43 Dose: 500 mg Documented By: MARGE Atorvastatin Calcium (Atorvastatin Calcium 40 Mg Tablet) 40 mg PO BEDTIME [facility] Last Admin: 01/22/24 21:00 Dose: 40 mg Documented By: PHILIPPE Buspirone HCl (Buspirone Hcl 5 Mg Tablet) 5 mg PO BID [facility] Last Admin: 01/23/24 08:44 Dose: 5 mg Documented By: MARGE Calcium Carbonate (Calcium Carbonate 750 Mg Tab.Chew) 750 mg PO Q4H PRN PRN Reason: Heartburn Divalproex Sodium (Divalproex Sodium Er 500 Mg Tab.Er.24h) 500 mg PO BID [facility] Last Admin: 01/23/24 08:44 Dose: 500 mg Documented By: MARGE Enoxaparin Sodium (Enoxaparin Sodium 100 Mg/Ml Syringe) 100 mg 1 mg/kg (100 mg) SUBCUT Q12H [facility] Last Admin: 01/23/24 05:19 Dose: 100 mg Documented By: PHILIPPE Ferrous Sulfate (Ferrous Sulfate 324 Mg Tablet.Dr) 324 mg PO DAILY [facility] Last Admin: 01/23/24 08:43 Dose: 324 mg Documented By: MARGE Gabapentin (Gabapentin 100 Mg Capsule) 100 mg PO TID [facility] Last Admin: 01/23/24 14:08 Dose: 100 mg Documented By: MARGE Glucose (Glucose Gel 15 Gm Gel..Gram.) 15 gm PO Q15M PRN; Protocol PRN Reason: per Hypoglycemia Standing Ord. Glucose (Glucose Gel 15 Gm Gel..Gram.) 15 gm PO Q15M PRN; Protocol PRN Reason: per Hypoglycemia Standing Ord. Dextrose (D10) 250 mls @ 750 mls/hr IV Q15M PRN; Protocol PRN Reason: per Hypoglycemia Standing Ord. Dextrose (D10) 250 mls @ 750 mls/hr IV Q15M PRN; Protocol PRN Reason: per Hypoglycemia Standing Ord. Insulin Glargine (Insulin Glargine,Hum.Rec.Anlog 100 Unit/Ml 10 Ml Vial) 20 unit SUBCUT BEDTIME [facility] Insulin Human Lispro (Insulin Lispro 100 Unit/Ml 3 Ml Vial) 0 unit SUBCUT QIDACHS [facility]; Protocol Last Admin: 01/23/24 11:31 Dose: 8 unit Documented By: MARGE Insulin Human Lispro (Insulin Lispro 100 Unit/Ml 3 Ml Vial) 8 unit SUBCUT QIDACHS [facility] Last Admin: 01/23/24 11:31 Dose: 8 unit Documented By: MARGE Levothyroxine Sodium (Levothyroxine Sodium 100 Mcg Tablet) 100 mcg PO DAILY@0600 [facility] Last Admin: 01/23/24 06:22 Dose: 100 mcg Documented By: PHILIPPE Lorazepam (Lorazepam 1 Mg Tablet) 1 mg PO BID PRN PRN Reason: Anxiety Last Admin: 01/21/24 11:21 Dose: 1 mg Documented By: CAROLE Magnesium Hydroxide (Milk Of Magnesia 30 Ml Oral.Susp) 30 ml PO DAILY PRN PRN Reason: Constipation Last Admin: 01/23/24 11:31 Dose: 30 ml Documented By: MARGE Melatonin (Melatonin 3 Mg Tablet) 6 mg PO BEDTIME PRN PRN Reason: Insomnia Methylprednisolone Sodium Succinate (Methylprednisolone Sod Succ 40 Mg/Ml Vial) 40 mg IVPUSH Q12H [facility] Last Admin: 01/23/24 05:19 Dose: 40 mg Documented By: PHILIPPE Metoprolol Succinate (Metoprolol Succinate Er 25 Mg Tab.Er.24h) 25 mg PO DAILY [facility]; Protocol Last Admin: 01/23/24 08:43 Dose: 25 mg Documented By: MARGE Nystatin (Nystatin Powder 15 Gm Bottle) 1 appl TOPICAL BID PRN; Protocol PRN Reason: rash under breasts Nystatin (Nystatin Oral Susp 500,000 Unit/5 Ml Oral.Susp) 500,000 unit BUCCAL BID PRN; Protocol PRN Reason: oral thrush Omeprazole (Omeprazole 20 Mg Capsule.Dr) 20 mg PO DAILY@0630 [facility] Last Admin: 01/23/24 05:19 Dose: 20 mg Documented By: PHILIPPE Ondansetron HCl (Ondansetron Hcl 4 Mg/2 Ml Vial) 4 mg IVPUSH Q8H PRN PRN Reason: Nausea and Vomiting Oxybutynin Chloride (Oxybutynin Chloride Er 5 Mg Tab.Er.24) 10 mg PO DAILY [facility] Last Admin: 01/23/24 08:43 Dose: 10 mg Documented By: MARGE Risperidone (Risperidone 2 Mg Tablet) 2 mg PO BID [facility] Last Admin: 01/23/24 08:43 Dose: 2 mg Documented By: MARGE Sodium Chloride (0.9 % Sodium Chloride Flush 3 Ml Syringe) 3 ml IVFLUSH QSHIFT [facility] Last Admin: 01/23/24 14:08 Dose: 3 ml Documented By: MARGE Vitamin D (Cholecalciferol (Vitamin D3) 25 Mcg Tablet) 25 mcg PO DAILY [facility] Last Admin: 01/23/24 08:43 Dose: 25 mcg Documented By: MARGE Labs 01/21/24 06:16 01/21/24 06:16 Labs: Laboratory Results - last 24 hr 01/22/24 01/22/24 01/23/24 16:21 20:44 07:40 VBG pH 7.36 VBG pCO2 57 VBG pO2 68 VBG HCO3 33 H VBG O2 Saturation 92.0 VBG Base Excess 6.2 POC Glucose 376 H* 260 H 01/23/24 10:47 VBG pH VBG pCO2 VBG pO2 VBG HCO3 VBG O2 Saturation VBG Base Excess POC Glucose 339 H Assessment and Plan (1) COPD (chronic obstructive pulmonary disease): Status: Acute (2) Altered mental state: Status: Acute Plan 78-year-old female with pertinent history of former tobacco use disorder, bipolar disorder, paroxysmal atrial fibrillation on anticoagulation, hypothyroidism, insulin-dependent diabetes mellitus, mixed hyperlipidemia admitted for acute hypoxemic respiratory failure due to COPD exacerbation found to have new right upper lobe and paratracheal mass Acute hypoxic respiratory failure due to exacerbation of obstructive lung disease Likely has underlying COPD in the setting of former tobacco use. Imaging with right upper lobe mass and right paratracheal mass which may be contributing. sob and mentation improving continue nebs,steriods , need oxygen titrate up (titer to sats 90%) will check vbg pulm following Right lung upper lobe and right paratracheal mass Suspicious for primary lung cancer with metastasis ct abd added oncology eval Paroxysmal atrial fibrillation-rate controlled Hold Eliquis due to possible biopsy per pulmonology times 2-3 days. Will initiate therapeutic Lovenox Continue metoprolol for rate control Bipolar disorder Continue home mood stabilizers Hypothyroidism:On Synthroid Insulin-dependent diabetes mellitus POC glucose, diabetic diet Humalog on sliding scale Hold metformin Mixed hyperlipidemia statin DVT prophylaxis: lovenox (therapeutic). Healthcare proxy is patient's , Davis, and son Adiel. Health care proxy invoked. Dicussed code status and would like to honor molst form- Full code,until further imaging to assess prognosis and evaluate treatment plan. ongoing hospital stay need for supplemental oxygen, evaluation of right lung mass (as above), which is not possible in a lesser acute setting. Quality Stroke Does the patient have a stroke diagnosis?: No VTE Prior VTE?: No VTE Risk Level:: Medical - moderate - high VTE Device Contraindication: N/A - Device Ordered VTE Drug Contraindication: Treatment Not Indicated
[2024-01-23 16:08] LABS: Glucose, Whole Blood 222 mg/dL (60-115)
[2024-01-23] MEDS: Insulin Glargine,Hum.rec.anlog 100 UNIT/ML 10 ML VIAL 20 UNIT SUBCUT (21:01)
[2024-01-23] MEDS: Atorvastatin Calcium 40 MG TABLET PO (21:06)
[2024-01-23 21:12] LABS: Glucose, Whole Blood 320 mg/dL (60-115)
[2024-01-24] VITALS (11 sets, daily range): BP systolic 110–144; BP diastolic 58–79; PULSE 58–69; RESP 16–20; TEMP 36.1–37.2; O2SAT 88–98
[2024-01-24] MEDS: Enoxaparin Sodium 100 MG/ML SYRINGE SUBCUT ×2 (04:19→16:21)
[2024-01-24] MEDS: methylPREDNISolone Sod Succ 40 MG/ML VIAL IVPUSH (04:19)
[2024-01-24] MEDS: Levothyroxine Sodium 100 MCG TABLET PO (04:21)
[2024-01-24] MEDS: Omeprazole 20 MG CAPSULE.DR PO (06:07)
[2024-01-24 07:39] LABS: Glucose, Whole Blood 171 mg/dL (60-115)
[2024-01-24] MEDS: Albuterol/Iprat 2.5/0.5MG 3 ML AMPUL.NEB INHALE ×4 (07:44→19:49)
[2024-01-24] MEDS: oxyBUTYnin chloride ER 5 MG TAB.ER.24 10 MG PO (08:19)
[2024-01-24] MEDS: Divalproex Sodium ER 500 MG TAB.ER.24H PO ×2 (08:19→20:20)
[2024-01-24] MEDS: ARIPiprazole 2 MG TABLET PO (08:20)
[2024-01-24] MEDS: Ferrous Sulfate 324 MG TABLET.DR PO (08:20)
[2024-01-24] MEDS: Insulin Lispro 100 UNIT/ML 3 ML VIAL 8 UNIT SUBCUT ×4 (08:20→20:54)
[2024-01-24] MEDS: Cholecalciferol (Vitamin D3) 25 MCG TABLET PO (08:20)
[2024-01-24] MEDS: Insulin Lispro 100 UNIT/ML 3 ML VIAL SUBCUT ×4 (08:20→20:54)
[2024-01-24] MEDS: Metoprolol Succinate ER 25 MG TAB.ER.24H PO (08:20)
[2024-01-24] MEDS: busPIRone HCl 5 MG TABLET PO ×2 (08:20→20:20)
[2024-01-24] MEDS: Gabapentin 100 MG CAPSULE PO ×3 (08:20→20:19)
[2024-01-24] MEDS: risperiDONE 2 MG TABLET PO ×2 (08:20→20:20)
[2024-01-24] MEDS: Ascorbic Acid 500 MG TABLET PO (08:20)
[2024-01-24] MEDS: 0.9 % Sodium Chloride Flush 3 ML SYRINGE IVFLUSH ×3 (08:21→20:20)
[2024-01-24] MEDS: predniSONE 20 MG TABLET 40 MG PO (08:25)
--- NOTE | 2024-01-24 09:04 | P.PNPL_ITS ---
Subjective Subjective Date of Service: 01/24/24 Interval history: The patient was seen on exam. She has been able to be out of bed using her incentive spirometer. Her oxygen requirements are decreasing now on 5 L saturating 95%. I am hopeful that she will continue to improve. Her MRI of the brain was done demonstrating some volume loss but no lytic lesions. I did speak to Oncology. They will like to have a biopsy done if possible. Therefore, her respiratory status continues to improve in oxygen requirements continued to decrease it will be reasonable to consider a CT-guided biopsy of the right upper lobe mass. I did start to the daughter. She does have a lesion also on the left. A PET scan was still be helpful to see in that area is also PET avid. We did talk about extensive disease versus 2 separate primaries. In the meantime she is going to continue to work on deep breathing exercises out of bed to recliner in using the incentive spirometer. Objective Data Labs 01/21/24 06:16 01/21/24 06:16 Labs: Laboratory Results - last 24 hr 01/23/24 01/23/24 01/23/24 10:47 15:59 20:50 POC Glucose 339 H 222 H 320 H 01/24/24 07:34 POC Glucose 171 H Review of Systems Constitutional: Reports fatigue, Reports malaise and Reports poor appetite Cardiovascular: Reports dyspnea on exertion Respiratory: Reports dyspnea on exertion and Reports wheezing Gastrointestinal: Reports loose stools Genitourinary: Reports no additional female genitourinary complaints Endocrine: Reports fatigue Allergic/Immunologic: Reports wheezing Physical Exam 2 Vital Signs: Vital Signs: Last Vital Signs Temp 97.9 F 01/24/24 07:19 Pulse 59 01/24/24 07:46 Resp 18 01/24/24 07:46 BP 144/66 H 01/24/24 07:19 Pulse Ox 94 01/24/24 07:19 O2 Del Method Nasal Cannula 01/24/24 07:19 O2 Flow Rate 7 01/24/24 07:19 BMI result Body Mass Index 34.7 Const: General: tired appearing HEENT: Head: Yes normocephalic Neck: Neck: Yes supple Chest: Chest palpation & inspection: normal inspection of the chest Resp: Effort & Inspection: normal respiratory effort Auscultation: d iminished lung sounds Cardio: Heart sounds: S1 normal heart sound present and S2 normal heart sound present GI: Palpation (GI): Soft to palpation Skin: General skin exam: no rashes or lesions noted Extrem: General: Yes no clubbing, cyanosis or edema Procedures Date of Service Date of Service: 01/24/24 Assessment and Plan Assessment and plan (1) COPD (chronic obstructive pulmonary disease): Status: Acute (2) Pulmonary nodules: Status: Acute (3) Mass of right lung: Status: Acute Plan Monitor oxygen requirements. Titrate to keep pulse ox above 90% At this point based on the high oxygen needs will be helpful to get a PET scan to directed to the best yield biopsy with less risk. However, will reassess tomorrow hopefully if she is doing better from an oxygenation standpoint will consider going directly to a biopsy if that is a possibility. I recommend continue to monitor her oxygen levels. Interventional Radiology is not in house today. If the patient is still here early next week then should be made NPO for biopsy as long as her oxygen requirements are reasonable (3-4 liters) Continue respiratory therapy Out of bed to the recliner with assistance and deep breathing exercises with incentive spirometer throughout the day Continue oxygen supplementation to maintain pulse ox above 88% Time Spent With Patient Time: Total time managing care of this patient today ____ minutes. Progress Note: Quality Stroke Does the patient have a stroke diagnosis?: No
--- NOTE | 2024-01-24 11:03 | MHC.CM.PN ---
Per MD, Patient is not yet medically cleared for dc (Hypoxia); [facility] has initiated auth from [employer] and CM will continue to follow.
[2024-01-24 11:10] LABS: Glucose, Whole Blood 386 mg/dL (60-115)
--- NOTE | 2024-01-24 14:46 | P.PNIM_ITS ---
Subjective Subjective Date of Service: 01/24/24 Interval History: acute hypoxemic respiratory failure related to COPD with new right upper lobe and right paratracheal mass Review of Systems sob improving still hypoxic mental status improving Physical Exam 2 Vital Signs: Vital Signs: Last Vital Signs Temp 97.9 F 01/24/24 11:29 Pulse 64 01/24/24 11:29 Resp 20 01/24/24 11:29 BP 131/62 01/24/24 11:29 Pulse Ox 94 01/24/24 11:29 O2 Del Method Nasal Cannula 01/24/24 11:29 O2 Flow Rate 4 01/24/24 11:29 BMI result Body Mass Index 34.7 Appearance: Alert.? Oriented X3.? cvs: [id number], [id number]. res: air entry somewhat diminshed at bases,has mild wheezing b/l abd: no rebound or guarding ,nt, bs present. ext pulses present , no cyanosis neuro: axo3 , nonfocal. Objective Data Active Medications Acetaminophen (Acetaminophen 325 Mg Tablet) 650 mg PO Q6H PRN PRN Reason: Pain, Mild (Pain Scale 1-3), fever or headache Last Admin: 01/23/24 01:43 Dose: 650 mg Documented By: PHILIPPE Albuterol/Ipratropium (Albuterol/Iprat 2.5/0.5mg 3 Ml Ampul.Neb) 3 ml INHALE RQ4H WHILE AWAKE [facility] Last Admin: 01/24/24 11:17 Dose: 3 ml Documented By: FLYNN Albuterol/Ipratropium (Albuterol/Iprat 2.5/0.5mg 3 Ml Ampul.Neb) 3 ml INHALE Q4H PRN PRN Reason: Wheezing Aripiprazole (Aripiprazole 2 Mg Tablet) 2 mg PO DAILY [facility] Last Admin: 01/24/24 08:20 Dose: 2 mg Documented By: MARGE Ascorbic Acid (Ascorbic Acid 500 Mg Tablet) 500 mg PO DAILY [facility] Last Admin: 01/24/24 08:20 Dose: 500 mg Documented By: MARGE Atorvastatin Calcium (Atorvastatin Calcium 40 Mg Tablet) 40 mg PO BEDTIME [facility] Last Admin: 01/23/24 21:06 Dose: 40 mg Documented By: NORRIS Buspirone HCl (Buspirone Hcl 5 Mg Tablet) 5 mg PO BID [facility] Last Admin: 01/24/24 08:20 Dose: 5 mg Documented By: MARGE Calcium Carbonate (Calcium Carbonate 750 Mg Tab.Chew) 750 mg PO Q4H PRN PRN Reason: Heartburn Divalproex Sodium (Divalproex Sodium Er 500 Mg Tab.Er.24h) 500 mg PO BID [facility] Last Admin: 01/24/24 08:19 Dose: 500 mg Documented By: MARGE Enoxaparin Sodium (Enoxaparin Sodium 100 Mg/Ml Syringe) 100 mg 1 mg/kg (100 mg) SUBCUT Q12H [facility] Last Admin: 01/24/24 04:19 Dose: 100 mg Documented By: NORRIS Ferrous Sulfate (Ferrous Sulfate 324 Mg Tablet.Dr) 324 mg PO DAILY [facility] Last Admin: 01/24/24 08:20 Dose: 324 mg Documented By: MARGE Gabapentin (Gabapentin 100 Mg Capsule) 100 mg PO TID [facility] Last Admin: 01/24/24 08:20 Dose: 100 mg Documented By: MARGE Glucose (Glucose Gel 15 Gm Gel..Gram.) 15 gm PO Q15M PRN; Protocol PRN Reason: per Hypoglycemia Standing Ord. Dextrose (D10) 250 mls @ 750 mls/hr IV Q15M PRN; Protocol PRN Reason: per Hypoglycemia Standing Ord. Insulin Glargine (Insulin Glargine,Hum.Rec.Anlog 100 Unit/Ml 10 Ml Vial) 20 unit SUBCUT BEDTIME [facility] Last Admin: 01/23/24 21:01 Dose: 20 unit Documented By: NORRIS Insulin Human Lispro (Insulin Lispro 100 Unit/Ml 3 Ml Vial) 0 unit SUBCUT QIDACHS [facility]; Protocol Last Admin: 01/24/24 11:50 Dose: 10 unit Documented By: MARGE Insulin Human Lispro (Insulin Lispro 100 Unit/Ml 3 Ml Vial) 8 unit SUBCUT QIDACHS [facility] Last Admin: 01/24/24 11:51 Dose: 8 unit Documented By: MARGE Levothyroxine Sodium (Levothyroxine Sodium 100 Mcg Tablet) 100 mcg PO DAILY@0600 [facility] Last Admin: 01/24/24 04:21 Dose: 100 mcg Documented By: NORRIS Lorazepam (Lorazepam 1 Mg Tablet) 1 mg PO BID PRN PRN Reason: Anxiety Last Admin: 01/21/24 11:21 Dose: 1 mg Documented By: CAROLE Magnesium Hydroxide (Milk Of Magnesia 30 Ml Oral.Susp) 30 ml PO DAILY PRN PRN Reason: Constipation Last Admin: 01/23/24 11:31 Dose: 30 ml Documented By: MARGE Melatonin (Melatonin 3 Mg Tablet) 6 mg PO BEDTIME PRN PRN Reason: Insomnia Metoprolol Succinate (Metoprolol Succinate Er 25 Mg Tab.Er.24h) 25 mg PO DAILY [facility]; Protocol Last Admin: 01/24/24 08:20 Dose: 25 mg Documented By: MARGE Nystatin (Nystatin Powder 15 Gm Bottle) 1 appl TOPICAL BID PRN; Protocol PRN Reason: rash under breasts Nystatin (Nystatin Oral Susp 500,000 Unit/5 Ml Oral.Susp) 500,000 unit BUCCAL BID PRN; Protocol PRN Reason: oral thrush Omeprazole (Omeprazole 20 Mg Capsule.Dr) 20 mg PO DAILY@0630 [facility] Last Admin: 01/24/24 06:07 Dose: 20 mg Documented By: NORRIS Ondansetron HCl (Ondansetron Hcl 4 Mg/2 Ml Vial) 4 mg IVPUSH Q8H PRN PRN Reason: Nausea and Vomiting Oxybutynin Chloride (Oxybutynin Chloride Er 5 Mg Tab.Er.24) 10 mg PO DAILY [facility] Last Admin: 01/24/24 08:19 Dose: 10 mg Documented By: MARGE Prednisone (Prednisone 20 Mg Tablet) 40 mg PO DAILY [facility] Last Admin: 01/24/24 08:25 Dose: 40 mg Documented By: MARGE Risperidone (Risperidone 2 Mg Tablet) 2 mg PO BID [facility] Last Admin: 01/24/24 08:20 Dose: 2 mg Documented By: MARGE Sodium Chloride (0.9 % Sodium Chloride Flush 3 Ml Syringe) 3 ml IVFLUSH QSHIFT [facility] Last Admin: 01/24/24 08:21 Dose: 3 ml Documented By: MARGE Vitamin D (Cholecalciferol (Vitamin D3) 25 Mcg Tablet) 25 mcg PO DAILY [facility] Last Admin: 01/24/24 08:20 Dose: 25 mcg Documented By: MARGE Labs 01/21/24 06:16 01/21/24 06:16 Labs: Laboratory Results - last 24 hr 01/23/24 01/23/24 01/24/24 15:59 20:50 07:34 POC Glucose 222 H 320 H 171 H 01/24/24 11:02 POC Glucose 386 H* Assessment and Plan (1) COPD (chronic obstructive pulmonary disease): Status: Acute Assessment and Plan: 78-year-old female with pertinent history of former tobacco use disorder, bipolar disorder, paroxysmal atrial fibrillation on anticoagulation, hypothyroidism, insulin-dependent diabetes mellitus, mixed hyperlipidemia admitted for acute hypoxemic respiratory failure due to COPD exacerbation found to have new right upper lobe and paratracheal mass Acute hypoxic respiratory failure due to exacerbation of obstructive lung disease Likely has underlying COPD in the setting of former tobacco use. Imaging with right upper lobe mass and right paratracheal mass which may be contributing. sob and mentation improving continue nebs,steriods , need oxygen titrate up (titer to sats 90%) pulm following-continue above management, monitor oxygen needs, may need lung biopsy earlier next week. Right lung upper lobe and right paratracheal mass Suspicious for primary lung cancer with metastasis ct abd added oncology eval Paroxysmal atrial fibrillation-rate controlled Hold Eliquis due to possible biopsy per pulmonology times 2-3 days. Will initiate therapeutic Lovenox Continue metoprolol for rate control Bipolar disorder Continue home mood stabilizers Hypothyroidism:On Synthroid Insulin-dependent diabetes mellitus with hyperglycemia : POC glucose, diabetic diet adjusted lantus and continue humalog 8 units tid,Humalog on sliding scale Hold metformin Mixed hyperlipidemia statin DVT prophylaxis: lovenox (therapeutic). . ongoing hospital stay need for supplemental oxygen, evaluation of right lung mass (as above), which is not possible in a lesser acute setting. Quality Stroke Does the patient have a stroke diagnosis?: No VTE Prior VTE?: No VTE Risk Level:: Medical - moderate - high VTE Device Contraindication: N/A - Device Ordered VTE Drug Contraindication: Treatment Not Indicated
[2024-01-24 15:53] LABS: Glucose, Whole Blood 356 mg/dL (60-115)
[2024-01-24] MEDS: polyethylene glycoL 3350 17 GM POWD.PACK PO (17:19)
[2024-01-24] MEDS: Docusate Sodium 100 MG CAPSULE PO (20:19)
[2024-01-24] MEDS: Atorvastatin Calcium 40 MG TABLET PO (20:19)
[2024-01-24] MEDS: Insulin Glargine,Hum.rec.anlog 100 UNIT/ML 10 ML VIAL 25 UNIT SUBCUT (20:54)
[2024-01-24 20:56] LABS: Glucose, Whole Blood 405 mg/dL (60-115)
[2024-01-25] VITALS (10 sets, daily range): BP systolic 114–143; BP diastolic 59–81; PULSE 55–68; RESP 16–20; TEMP 36–37.2; O2SAT 90–95
[2024-01-25] MEDS: Acetaminophen 325 MG TABLET 650 MG PO ×2 (05:53→12:06)
[2024-01-25] MEDS: Enoxaparin Sodium 100 MG/ML SYRINGE SUBCUT ×2 (05:54→16:44)
[2024-01-25] MEDS: Omeprazole 20 MG CAPSULE.DR PO (05:54)
[2024-01-25] MEDS: Levothyroxine Sodium 100 MCG TABLET PO (05:54)
[2024-01-25] MEDS: Albuterol/Iprat 2.5/0.5MG 3 ML AMPUL.NEB INHALE ×4 (07:12→19:38)
[2024-01-25 08:05] LABS: Glucose, Whole Blood 158 mg/dL (60-115)
[2024-01-25] MEDS: Insulin Lispro 100 UNIT/ML 3 ML VIAL 8 UNIT SUBCUT ×4 (08:54→21:12)
[2024-01-25] MEDS: Insulin Lispro 100 UNIT/ML 3 ML VIAL SUBCUT ×4 (08:54→21:12)
[2024-01-25] MEDS: Ascorbic Acid 500 MG TABLET PO (08:55)
[2024-01-25] MEDS: Divalproex Sodium ER 500 MG TAB.ER.24H PO ×2 (08:55→21:13)
[2024-01-25] MEDS: Metoprolol Succinate ER 25 MG TAB.ER.24H PO (08:55)
[2024-01-25] MEDS: oxyBUTYnin chloride ER 5 MG TAB.ER.24 10 MG PO (08:55)
[2024-01-25] MEDS: Docusate Sodium 100 MG CAPSULE PO ×2 (08:56→21:13)
[2024-01-25] MEDS: polyethylene glycoL 3350 17 GM POWD.PACK PO (08:56)
[2024-01-25] MEDS: Ferrous Sulfate 324 MG TABLET.DR PO (08:56)
[2024-01-25] MEDS: Gabapentin 100 MG CAPSULE PO ×3 (08:56→21:13)
[2024-01-25] MEDS: 0.9 % Sodium Chloride Flush 3 ML SYRINGE IVFLUSH ×2 (08:57→23:46)
[2024-01-25] MEDS: busPIRone HCl 5 MG TABLET PO ×2 (08:57→21:13)
[2024-01-25] MEDS: Cholecalciferol (Vitamin D3) 25 MCG TABLET PO (09:15)
[2024-01-25] MEDS: ARIPiprazole 2 MG TABLET PO (09:15)
[2024-01-25] MEDS: risperiDONE 2 MG TABLET PO ×2 (09:16→21:13)
[2024-01-25] MEDS: predniSONE 10 MG TABLET 30 MG PO (09:16)
[2024-01-25 11:33] LABS: Glucose, Whole Blood 218 mg/dL (60-115)
--- NOTE | 2024-01-25 13:41 | HO.PM.IMPN ---
Subjective Subjective Date of Service: 01/26/24 Interval History: copd ,lung mass Review of Systems sob improving no fever Physical Exam Vital Signs: Vital Signs: Last Vital Signs Temp 97.2 F 01/25/24 11:57 Pulse 58 01/25/24 11:57 Resp 18 01/25/24 11:57 BP 116/62 01/25/24 11:57 Pulse Ox 94 01/25/24 07:37 O2 Del Method Nasal Cannula 01/25/24 11:57 O2 Flow Rate 2 01/25/24 11:57 BMI result Body Mass Index 34.7 Appearance: Alert.? Oriented X3.? cvs: rrr, [id number]. res: air entry somewhat diminshed at bases,has mild wheezing b/l abd: no rebound or guarding ,nt, bs present. ext pulses present , no cyanosis neuro: axo3 , nonfocal. Objective Data Active Medications Acetaminophen (Acetaminophen 325 Mg Tablet) 650 mg PO Q6H PRN PRN Reason: Pain, Mild (Pain Scale 1-3), fever or headache Last Admin: 01/25/24 12:06 Dose: 650 mg Documented By: TAYE Albuterol/Ipratropium (Albuterol/Iprat 2.5/0.5mg 3 Ml Ampul.Neb) 3 ml INHALE RQ4H WHILE AWAKE [facility] Last Admin: 01/25/24 11:41 Dose: 3 ml Documented By: FLYNN Albuterol/Ipratropium (Albuterol/Iprat 2.5/0.5mg 3 Ml Ampul.Neb) 3 ml INHALE Q4H PRN PRN Reason: Wheezing Aripiprazole (Aripiprazole 2 Mg Tablet) 2 mg PO DAILY [facility] Last Admin: 01/25/24 09:15 Dose: 2 mg Documented By: TAYE Ascorbic Acid (Ascorbic Acid 500 Mg Tablet) 500 mg PO DAILY [facility] Last Admin: 01/25/24 08:55 Dose: 500 mg Documented By: TAYE Atorvastatin Calcium (Atorvastatin Calcium 40 Mg Tablet) 40 mg PO BEDTIME [facility] Last Admin: 01/24/24 20:19 Dose: 40 mg Documented By: DEANA Buspirone HCl (Buspirone Hcl 5 Mg Tablet) 5 mg PO BID [facility] Last Admin: 01/25/24 08:57 Dose: 5 mg Documented By: TAYE Calcium Carbonate (Calcium Carbonate 750 Mg Tab.Chew) 750 mg PO Q4H PRN PRN Reason: Heartburn Divalproex Sodium (Divalproex Sodium Er 500 Mg Tab.Er.24h) 500 mg PO BID [facility] Last Admin: 01/25/24 08:55 Dose: 500 mg Documented By: TAYE Docusate Sodium (Docusate Sodium 100 Mg Capsule) 100 mg PO BID [facility] Last Admin: 01/25/24 08:56 Dose: 100 mg Documented By: TAYE Enoxaparin Sodium (Enoxaparin Sodium 100 Mg/Ml Syringe) 100 mg 1 mg/kg (100 mg) SUBCUT Q12H [facility] Last Admin: 01/25/24 05:54 Dose: 100 mg Documented By: DEANA Ferrous Sulfate (Ferrous Sulfate 324 Mg Tablet.Dr) 324 mg PO DAILY [facility] Last Admin: 01/25/24 08:56 Dose: 324 mg Documented By: TAYE Gabapentin (Gabapentin 100 Mg Capsule) 100 mg PO TID [facility] Last Admin: 01/25/24 08:56 Dose: 100 mg Documented By: TAYE Glucose (Glucose Gel 15 Gm Gel..Gram.) 15 gm PO Q15M PRN; Protocol PRN Reason: per Hypoglycemia Standing Ord. Dextrose (D10) 250 mls @ 750 mls/hr IV Q15M PRN; Protocol PRN Reason: per Hypoglycemia Standing Ord. Insulin Glargine (Insulin Glargine,Hum.Rec.Anlog 100 Unit/Ml 10 Ml Vial) 25 unit SUBCUT BEDTIME [facility] Last Admin: 01/24/24 20:54 Dose: 25 unit Documented By: DEANA Comments: POC 405. Dr. Esqueda notified. Insulin Human Lispro (Insulin Lispro 100 Unit/Ml 3 Ml Vial) 0 unit SUBCUT QIDACHS [facility]; Protocol Last Admin: 01/25/24 12:06 Dose: 4 unit Documented By: TAYE Insulin Human Lispro (Insulin Lispro 100 Unit/Ml 3 Ml Vial) 8 unit SUBCUT QIDACHS [facility] Last Admin: 01/25/24 12:06 Dose: 8 unit Documented By: TAYE Levothyroxine Sodium (Levothyroxine Sodium 100 Mcg Tablet) 100 mcg PO DAILY@0600 [facility] Last Admin: 01/25/24 05:54 Dose: 100 mcg Documented By: DEANA Magnesium Hydroxide (Milk Of Magnesia 30 Ml Oral.Susp) 30 ml PO DAILY PRN PRN Reason: Constipation Last Admin: 01/23/24 11:31 Dose: 30 ml Documented By: MARGE Melatonin (Melatonin 3 Mg Tablet) 6 mg PO BEDTIME PRN PRN Reason: Insomnia Metoprolol Succinate (Metoprolol Succinate Er 25 Mg Tab.Er.24h) 25 mg PO DAILY [facility]; Protocol Last Admin: 01/25/24 08:55 Dose: 25 mg Documented By: TAYE Nystatin (Nystatin Powder 15 Gm Bottle) 1 appl TOPICAL BID PRN; Protocol PRN Reason: rash under breasts Nystatin (Nystatin Oral Susp 500,000 Unit/5 Ml Oral.Susp) 500,000 unit BUCCAL BID PRN; Protocol PRN Reason: oral thrush Omeprazole (Omeprazole 20 Mg Capsule.Dr) 20 mg PO DAILY@0630 [facility] Last Admin: 01/25/24 05:54 Dose: 20 mg Documented By: DEANA Ondansetron HCl (Ondansetron Hcl 4 Mg/2 Ml Vial) 4 mg IVPUSH Q8H PRN PRN Reason: Nausea and Vomiting Oxybutynin Chloride (Oxybutynin Chloride Er 5 Mg Tab.Er.24) 10 mg PO DAILY [facility] Last Admin: 01/25/24 08:55 Dose: 10 mg Documented By: TAYE Polyethylene Glycol (Polyethylene Glycol 3350 17 Gm Powd.Pack) 17 gm PO DAILY [facility] Last Admin: 01/25/24 08:56 Dose: 17 gm Documented By: TAYE Prednisone (Prednisone 10 Mg Tablet) 30 mg PO DAILY [facility] Last Admin: 01/25/24 09:16 Dose: 30 mg Documented By: TAYE Risperidone (Risperidone 2 Mg Tablet) 2 mg PO BID [facility] Last Admin: 01/25/24 09:16 Dose: 2 mg Documented By: TAYE Sodium Chloride (0.9 % Sodium Chloride Flush 3 Ml Syringe) 3 ml IVFLUSH QSHIFT [facility] Last Admin: 01/25/24 08:57 Dose: 3 ml Documented By: TAYE Vitamin D (Cholecalciferol (Vitamin D3) 25 Mcg Tablet) 25 mcg PO DAILY [facility] Last Admin: 01/25/24 09:15 Dose: 25 mcg Documented By: TAYE Labs 01/21/24 06:16 01/21/24 06:16 Labs: Laboratory Results - last 24 hr 01/24/24 01/24/24 01/25/24 15:47 20:46 07:14 POC Glucose 356 H* 405 H* 158 H 01/25/24 11:27 POC Glucose 218 H Assessment and Plan (1) COPD (chronic obstructive pulmonary disease): Status: Acute Assessment and Plan: 78-year-old female with pertinent history of former tobacco use disorder, bipolar disorder, paroxysmal atrial fibrillation on anticoagulation, hypothyroidism, insulin-dependent diabetes mellitus, mixed hyperlipidemia admitted for acute hypoxemic respiratory failure due to COPD exacerbation found to have new right upper lobe and paratracheal mass Acute hypoxic respiratory failure due to exacerbation of obstructive lung disease Likely has underlying COPD in the setting of former tobacco use. Imaging with right upper lobe mass and right paratracheal mass which may be contributing. sob and mentation improving continue nebs,steriods , need oxygen titrate up (titer to sats 90%) pulm following-continue above management, monitor oxygen needs, may need lung biopsy earlier next week. Right lung upper lobe and right paratracheal mass Suspicious for primary lung cancer with metastasis ct abd added oncology eval Paroxysmal atrial fibrillation-rate controlled Hold Eliquis due to possible biopsy per pulmonology times 2-3 days. Will initiate therapeutic Lovenox Continue metoprolol for rate control Bipolar disorder Continue home mood stabilizers Hypothyroidism:On Synthroid Insulin-dependent diabetes mellitus with hyperglycemia : POC glucose, diabetic diet adjusted lantus and continue humalog 8 units tid,Humalog on sliding scale Hold metformin Mixed hyperlipidemia statin DVT prophylaxis: lovenox (therapeutic). . ongoing hospital stay need for supplemental oxygen, evaluation of right lung mass (as above), which is not possible in a lesser acute setting. (2) Acute respiratory failure: Status: Acute Quality Stroke Does the patient have a stroke diagnosis?: No VTE Prior VTE?: No VTE Risk Level:: Medical - moderate - high VTE Device Contraindication: N/A - Device Ordered VTE Drug Contraindication: Treatment Not Indicated
[2024-01-25 16:18] LABS: Glucose, Whole Blood 267 mg/dL (60-115)
[2024-01-25 20:47] LABS: Glucose, Whole Blood 304 mg/dL (60-115)
[2024-01-25] MEDS: Insulin Glargine,Hum.rec.anlog 100 UNIT/ML 10 ML VIAL 25 UNIT SUBCUT (21:12)
[2024-01-25] MEDS: Atorvastatin Calcium 40 MG TABLET PO (21:13)
[2024-01-25] MEDS: Milk of Magnesia 30 ML ORAL.SUSP PO (21:13)
--- NOTE | 2024-01-25 22:18 | PC.NURSE ---
this RN notified by geotechnical field technician of two times Irregular rate n rhythm between [id number]. Rate 150-170 for 4-5 sec. MD Esqueda notified and aware. Cont to monitor. Current reg sinus.
[2024-01-26] VITALS (11 sets, daily range): BP systolic 113–147; BP diastolic 54–82; PULSE 57–84; RESP 16–20; TEMP 36.1–37.2; O2SAT 89–95
[2024-01-26] MEDS: Acetaminophen 325 MG TABLET 650 MG PO ×2 (05:47→21:50)
[2024-01-26] MEDS: Levothyroxine Sodium 100 MCG TABLET PO (05:49)
[2024-01-26] MEDS: Omeprazole 20 MG CAPSULE.DR PO (05:50)
[2024-01-26] MEDS: Enoxaparin Sodium 100 MG/ML SYRINGE SUBCUT ×2 (05:51→17:01)
[2024-01-26] MEDS: Albuterol/Iprat 2.5/0.5MG 3 ML AMPUL.NEB INHALE ×4 (07:49→19:33)
[2024-01-26 08:24] LABS: Glucose, Whole Blood 109 mg/dL (60-115)
[2024-01-26] MEDS: Ascorbic Acid 500 MG TABLET PO (09:30)
[2024-01-26] MEDS: Metoprolol Succinate ER 25 MG TAB.ER.24H PO (09:30)
[2024-01-26] MEDS: predniSONE 10 MG TABLET 30 MG PO (09:30)
[2024-01-26] MEDS: Cholecalciferol (Vitamin D3) 25 MCG TABLET PO (09:30)
[2024-01-26] MEDS: Divalproex Sodium ER 500 MG TAB.ER.24H PO ×2 (09:30→20:20)
[2024-01-26] MEDS: Ferrous Sulfate 324 MG TABLET.DR PO (09:31)
[2024-01-26] MEDS: oxyBUTYnin chloride ER 5 MG TAB.ER.24 10 MG PO (09:31)
[2024-01-26] MEDS: ARIPiprazole 2 MG TABLET PO (09:31)
[2024-01-26] MEDS: Docusate Sodium 100 MG CAPSULE PO ×2 (09:32→20:20)
[2024-01-26] MEDS: Gabapentin 100 MG CAPSULE PO ×3 (09:32→20:20)
[2024-01-26] MEDS: risperiDONE 2 MG TABLET PO ×2 (09:32→20:20)
[2024-01-26] MEDS: polyethylene glycoL 3350 17 GM POWD.PACK PO ×2 (09:32→20:19)
[2024-01-26] MEDS: busPIRone HCl 5 MG TABLET PO ×2 (09:32→20:20)
[2024-01-26] MEDS: 0.9 % Sodium Chloride Flush 3 ML SYRINGE IVFLUSH ×3 (09:35→20:21)
--- NOTE | 2024-01-26 11:21 | HO.PM.IMPN ---
Subjective Subjective Date of Service: 01/26/24 Interval History: copd ,lung mass Review of Systems sob improving no fever has constipation Physical Exam Vital Signs: Vital Signs: Last Vital Signs Temp 97.0 F 01/26/24 07:48 Pulse 64 01/26/24 07:50 Resp 18 01/26/24 07:50 BP 147/82 H 01/26/24 07:48 Pulse Ox 95 01/26/24 07:48 O2 Del Method Nasal Cannula 01/26/24 07:48 O2 Flow Rate 3 01/26/24 07:48 BMI result Body Mass Index 34.7 Appearance: Alert.? Oriented X3.? cvs: rrr, [id number]. res: air entry somewhat diminshed at bases,has mild wheezing b/l. abd: no rebound or guarding ,nt, bs present. ext pulses present , no cyanosis neuro: axo3 , nonfocal. Objective Data Active Medications Acetaminophen (Acetaminophen 325 Mg Tablet) 650 mg PO Q6H PRN PRN Reason: Pain, Mild (Pain Scale 1-3), fever or headache Last Admin: 01/26/24 05:47 Dose: 650 mg Documented By: JE Albuterol/Ipratropium (Albuterol/Iprat 2.5/0.5mg 3 Ml Ampul.Neb) 3 ml INHALE RQ4H WHILE AWAKE [facility] Last Admin: 01/26/24 07:49 Dose: 3 ml Documented By: FLYNN Albuterol/Ipratropium (Albuterol/Iprat 2.5/0.5mg 3 Ml Ampul.Neb) 3 ml INHALE Q4H PRN PRN Reason: Wheezing Aripiprazole (Aripiprazole 2 Mg Tablet) 2 mg PO DAILY [facility] Last Admin: 01/26/24 09:31 Dose: 2 mg Documented By: RYAN Ascorbic Acid (Ascorbic Acid 500 Mg Tablet) 500 mg PO DAILY [facility] Last Admin: 01/26/24 09:30 Dose: 500 mg Documented By: RYAN Atorvastatin Calcium (Atorvastatin Calcium 40 Mg Tablet) 40 mg PO BEDTIME [facility] Last Admin: 01/25/24 21:13 Dose: 40 mg Documented By: SUZY Buspirone HCl (Buspirone Hcl 5 Mg Tablet) 5 mg PO BID [facility] Last Admin: 01/26/24 09:32 Dose: 5 mg Documented By: RYAN Calcium Carbonate (Calcium Carbonate 750 Mg Tab.Chew) 750 mg PO Q4H PRN PRN Reason: Heartburn Divalproex Sodium (Divalproex Sodium Er 500 Mg Tab.Er.24h) 500 mg PO BID [facility] Last Admin: 01/26/24 09:30 Dose: 500 mg Documented By: RYAN Docusate Sodium (Docusate Sodium 100 Mg Capsule) 100 mg PO BID [facility] Last Admin: 01/26/24 09:32 Dose: 100 mg Documented By: RYAN Enoxaparin Sodium (Enoxaparin Sodium 100 Mg/Ml Syringe) 100 mg 1 mg/kg (100 mg) SUBCUT Q12H [facility] Last Admin: 01/26/24 05:51 Dose: 100 mg Documented By: JE Ferrous Sulfate (Ferrous Sulfate 324 Mg Tablet.Dr) 324 mg PO DAILY [facility] Last Admin: 01/26/24 09:31 Dose: 324 mg Documented By: RYAN Gabapentin (Gabapentin 100 Mg Capsule) 100 mg PO TID [facility] Last Admin: 01/26/24 09:32 Dose: 100 mg Documented By: RYAN Glucose (Glucose Gel 15 Gm Gel..Gram.) 15 gm PO Q15M PRN; Protocol PRN Reason: per Hypoglycemia Standing Ord. Dextrose (D10) 250 mls @ 750 mls/hr IV Q15M PRN; Protocol PRN Reason: per Hypoglycemia Standing Ord. Insulin Glargine (Insulin Glargine,Hum.Rec.Anlog 100 Unit/Ml 10 Ml Vial) 25 unit SUBCUT BEDTIME [facility] Last Admin: 01/25/24 21:12 Dose: 25 unit Documented By: SUZY Insulin Human Lispro (Insulin Lispro 100 Unit/Ml 3 Ml Vial) 0 unit SUBCUT QIDACHS [facility]; Protocol Last Admin: 01/26/24 08:47 Dose: Not Given Documented By: RYAN Non-Admin Reason: No Insulin Coverage Insulin Human Lispro (Insulin Lispro 100 Unit/Ml 3 Ml Vial) 8 unit SUBCUT QIDACHS [facility] Last Admin: 01/26/24 08:48 Dose: Not Given Documented By: RYAN Non-Admin Reason: poc 109 Levothyroxine Sodium (Levothyroxine Sodium 100 Mcg Tablet) 100 mcg PO DAILY@0600 [facility] Last Admin: 01/26/24 05:49 Dose: 100 mcg Documented By: JE Magnesium Hydroxide (Milk Of Magnesia 30 Ml Oral.Susp) 30 ml PO DAILY PRN PRN Reason: Constipation Last Admin: 01/25/24 21:13 Dose: 30 ml Documented By: SUZY Melatonin (Melatonin 3 Mg Tablet) 6 mg PO BEDTIME PRN PRN Reason: Insomnia Metoprolol Succinate (Metoprolol Succinate Er 25 Mg Tab.Er.24h) 25 mg PO DAILY [facility]; Protocol Last Admin: 01/26/24 09:30 Dose: 25 mg Documented By: RYAN Nystatin (Nystatin Powder 15 Gm Bottle) 1 appl TOPICAL BID PRN; Protocol PRN Reason: rash under breasts Nystatin (Nystatin Oral Susp 500,000 Unit/5 Ml Oral.Susp) 500,000 unit BUCCAL BID PRN; Protocol PRN Reason: oral thrush Omeprazole (Omeprazole 20 Mg Capsule.Dr) 20 mg PO DAILY@0630 [facility] Last Admin: 01/26/24 05:50 Dose: 20 mg Documented By: JE Ondansetron HCl (Ondansetron Hcl 4 Mg/2 Ml Vial) 4 mg IVPUSH Q8H PRN PRN Reason: Nausea and Vomiting Oxybutynin Chloride (Oxybutynin Chloride Er 5 Mg Tab.Er.24) 10 mg PO DAILY [facility] Last Admin: 01/26/24 09:31 Dose: 10 mg Documented By: RYAN Polyethylene Glycol (Polyethylene Glycol 3350 17 Gm Powd.Pack) 17 gm PO DAILY [facility] Last Admin: 01/26/24 09:32 Dose: 17 gm Documented By: RYAN Prednisone (Prednisone 10 Mg Tablet) 30 mg PO DAILY [facility] Last Admin: 01/26/24 09:30 Dose: 30 mg Documented By: YRAN Risperidone (Risperidone 2 Mg Tablet) 2 mg PO BID [facility] Last Admin: 01/26/24 09:32 Dose: 2 mg Documented By: RYAN Sodium Biphosphate/Sodium Phosphate (Sodium Phosphate,[place]-Dibasic 133 Ml Enema) [address] ONCE PRN PRN Reason: Constipation Sodium Chloride (0.9 % Sodium Chloride Flush 3 Ml Syringe) 3 ml IVFLUSH QSHIFT [facility] Last Admin: 01/26/24 09:35 Dose: 3 ml Documented By: RYAN Vitamin D (Cholecalciferol (Vitamin D3) 25 Mcg Tablet) 25 mcg PO DAILY [facility] Last Admin: 01/26/24 09:30 Dose: 25 mcg Documented By: RYAN Labs 01/21/24 06:16 01/21/24 06:16 Labs: Laboratory Results - last 24 hr 01/25/24 01/25/24 01/25/24 11:27 15:54 20:43 POC Glucose 218 H 267 H 304 H 01/26/24 07:47 POC Glucose 109 Assessment and Plan (1) COPD (chronic obstructive pulmonary disease): Status: Acute Assessment and Plan: 78-year-old female with pertinent history of former tobacco use disorder, bipolar disorder, paroxysmal atrial fibrillation on anticoagulation, hypothyroidism, insulin-dependent diabetes mellitus, mixed hyperlipidemia admitted for acute hypoxemic respiratory failure due to COPD exacerbation found to have new right upper lobe and paratracheal mass Acute hypoxic respiratory failure due to exacerbation of obstructive lung disease Likely has underlying COPD in the setting of former tobacco use. Imaging with right upper lobe mass and right paratracheal mass which may be contributing. sob and mentation improving continue nebs,steriods , need oxygen titrate up (titer to sats 90%) pulm following-continue above management, monitor oxygen needs, may need lung biopsy earlier next week. Right lung upper lobe and right paratracheal mass Suspicious for primary lung cancer with metastasis ct abd added oncology eval Paroxysmal atrial fibrillation-rate controlled Hold Eliquis due to possible biopsy per pulmonology times 2-3 days. Will initiate therapeutic Lovenox Continue metoprolol for rate control Bipolar disorder seen by psych -added yuriy christy 5 mg po daily. Continue home mood stabilizers Hypothyroidism:On Synthroid Insulin-dependent diabetes mellitus with hyperglycemia : POC glucose, diabetic diet adjusted lantus and continue humalog 8 units tid,Humalog on sliding scale Hold metformin Mixed hyperlipidemia statin DVT prophylaxis: lovenox (therapeutic). . ongoing hospital stay need for supplemental oxygen, evaluation of right lung mass (as above), which is not possible in a lesser acute setting. (2) Acute respiratory failure: Status: Acute Quality Stroke Does the patient have a stroke diagnosis?: No VTE Prior VTE?: No VTE Risk Level:: Medical - moderate - high VTE Device Contraindication: N/A - Device Ordered VTE Drug Contraindication: Treatment Not Indicated
[2024-01-26 11:22] LABS: Glucose, Whole Blood 251 mg/dL (60-115)
[2024-01-26] MEDS: Insulin Lispro 100 UNIT/ML 3 ML VIAL SUBCUT ×3 (11:44→20:20)
[2024-01-26] MEDS: Insulin Lispro 100 UNIT/ML 3 ML VIAL 8 UNIT SUBCUT ×3 (11:44→20:20)
--- NOTE | 2024-01-26 13:47 | PM.PSYCN ---
History of Present Illness Date of Service: t Chief Complaint: Dyspnea Reason for Consult: Assessment of medication management Requesting physician: David Vasquez Discussed with referring provider: Yes Sources of Information: patient interviewed, chart reviewed and crisis/core team assessment reviewed Additional Sources of Information: was interviewed. HPI Narrative: The patient is a 78 year old female, , with a previous history of Bipolar disorder admitted for exacerbation of SOB in the context of COPD and other medical comorbilities. She was initially assessed by psychiatry to assess capacity to take informed decisions but the present consult was asked regarding her mood disorder since she had been more labile with increased anxiety. On interview, the patient reported that she has been scared of going back home, she is worried that her medical condition could worsened. She also admitted restlesness and periods of flight of idears. While she was medically treated, she reported that her mood has been more unstable. Her was interviewed also and he reported that at times her mood is slightly erratic. We reviewed the chart and apparently she had been on Depakote for several years. She denies psychotic symptoms, she is able to contract for safety and she has outpatient services for her bipolar. Past Psychiatric History: bipolar disorder taking depakote, abilify, buspar, gabapentin, synthroid, ativan, risperidone Medical Evaluation Reviewed: Yes [facility] Medical History (Updated 01/26/24 @ 13:52 by Hernán Villalobos MD) COPD (chronic obstructive pulmonary disease) PAF (paroxysmal atrial fibrillation) Vaginal pain Gait instability Hypertension Intertrigo Obesity (BMI 30-39.9) Bipolar disorder Anemia Allergic rhinitis Acquired hypothyroidism Pure hypercholesterolemia Diabetes mellitus GERD without esophagitis Pain of left lower extremity High bilirubin Hx of strabismus Hx of diabetes insipidus History of vitamin D deficiency Surgical History Hx of colonoscopy History of eye surgery History of left breast biopsy Hx of dilation and curettage Hx of cataract surgery (~07/2017) Diagnostics Vital Signs (24Hr): Vital Signs - 24 hr 01/25/24 15:46 01/25/24 15:54 01/25/24 19:39 Temperature 98.9 F Pulse Rate 65 68 67 Respiratory Rate 18 16 16 Blood Pressure 119/65 Pulse Oximetry 94 Oxygen Delivery Method Nasal Cannula Oxygen Flow Rate 2 01/25/24 20:00 01/26/24 00:00 01/26/24 04:00 Temperature 96.8 F 97 F 97 F Pulse Rate 67 58 57 Respiratory Rate 18 18 18 Blood Pressure 138/81 128/72 140/77 H Pulse Oximetry 92 93 94 Oxygen Delivery Method Nasal Cannula Nasal Cannula Nasal Cannula Oxygen Flow Rate 4 4 4 01/26/24 07:48 01/26/24 07:50 01/26/24 11:41 Temperature 97.0 F Pulse Rate 64 64 80 Respiratory Rate 20 18 18 Blood Pressure 147/82 H Pulse Oximetry 95 Oxygen Delivery Method Nasal Cannula Oxygen Flow Rate 3 01/26/24 12:00 Temperature 97.0 F Pulse Rate 72 Respiratory Rate 20 Blood Pressure 139/58 L Pulse Oximetry 92 Oxygen Delivery Method Nasal Cannula Oxygen Flow Rate 2 BMI result Body Mass Index 34.7 Labs 01/21/24 06:16 01/21/24 06:16 Labs: Laboratory Results - last 48 hr 01/24/24 01/24/24 01/25/24 15:47 20:46 07:14 POC Glucose 356 H* 405 H* 158 H 01/25/24 01/25/24 01/25/24 11:27 15:54 20:43 POC Glucose 218 H 267 H 304 H 01/26/24 01/26/24 07:47 11:14 POC Glucose 109 251 H Imaging Radiology Impressions: ITS Impressions Chest X-Ray 01/19/24 22:24 IMPRESSION: New soft tissue attenuation in the right paratracheal region, suspicious for a mediastinal mass. Contrast-enhanced CT has already been ordered for further evaluation Hip/Pelvis X-Ray 01/19/24 22:24 IMPRESSION: No acute findings identified. Degenerative changes of the hips, right greater than left. Lumbar Spine X-Ray 01/19/24 22:24 IMPRESSION: 1. Slight loss of height in the superior endplate of L1, age-indeterminate. 2. Grade 1 anterolistheses of L4 on L5, favored to be chronic/degenerative in nature in the setting of severe lower lumbar facet arthropathy. Chest CT 01/19/24 23:45 IMPRESSION: 1. Right paratracheal mediastinal mass measuring up to 5.4 cm, suspicious for metastatic disease given the pulmonary findings described below, or potentially a primary neoplasm such as lymphoma. Further workup recommended which may include tissue sampling. 2. Focal masslike opacity in the anterior apical right upper lobe measuring up to 2.8 cm, concerning for malignancy such as primary lung cancer. Further workup with tissue sampling is recommended. A nearby subpleural nodule measuring 6 mm is suspicious for satellite nodule. 3. Multiple right pleural masses, suspicious for metastatic disease. 4. Trace right pleural effusion. 5. Chronic left lower lobe nodule with internal calcification, favoring a benign etiology. 6. Slight superior endplate height loss and L1, age indeterminate. Acute endplate fracture cannot be excluded in the proper clinical setting. Abdomen/Pelvis CT 01/21/24 11:55 IMPRESSION: 1. No evidence of metastatic disease to the abdomen or pelvis. 2. Small 1 x 0.8 cm low-attenuation mass in the hepatic dome, not seen on prior exam. Given the patient's history of newly diagnosed lung cancer, further assessment with MRI scan of the abdomen with and without contrast is recommended to exclude metastatic disease. 3. Small right pleural effusion. 4. Slowly progressive increase in size of pleural-based mass in the posterior medial left lower lobe. Given the slow rate of change, a indolent etiology is suspected, perhaps a fibrous tumor of the pleura. Continued attention on follow-up imaging is recommended. 5. Markedly atrophic pancreas with multiple pancreatic calcifications and pancreatic ductal dilatation. 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 6. Nonobstructing lower pole right renal calculi. 7. Extensive atherosclerotic vascular disease. 8. Mild superior endplate compression deformity of the L1 vertebral body, new from 03/24/2017. Brain MRI 01/23/24 15:14 IMPRESSION: 1. No evidence of intracranial metastatic disease. 2. Mild to moderate global cerebral volume loss and white matter signal changes, presumably moderate chronic microangiopathy. 3. Expanded partially empty sella. Mental Status Exam Mental Status Exam Patient Appearance: Appropriate (on hospital gowns) Patient Orientation: Person and Situation Level of Consciousness: Awake and Appropriate Patient Behavior: Appropriate Mood Description: Calm Affect Description: Anxious Ability to Follow Directions: Good Speech Pattern: Clear Hallucinations: None Delusions: Ideas of Reference Thought Process: Evasive and Slowed Thinking Thought Content: positive for Poverty of Content Judgement: Fair Medications Medications Current Medications Acetaminophen (Acetaminophen 325 Mg Tablet) 650 mg PO Q6H PRN PRN Reason: Pain, Mild (Pain Scale 1-3), fever or headache Last Admin: 01/26/24 05:47 Dose: 650 mg Albuterol/Ipratropium (Albuterol/Iprat 2.5/0.5mg 3 Ml Ampul.Neb) 3 ml INHALE RQ4H WHILE AWAKE [facility] Last Admin: 01/26/24 11:39 Dose: 3 ml Albuterol/Ipratropium (Albuterol/Iprat 2.5/0.5mg 3 Ml Ampul.Neb) 3 ml INHALE Q4H PRN PRN Reason: Wheezing Aripiprazole (Aripiprazole 2 Mg Tablet) 2 mg PO DAILY [facility] Last Admin: 01/26/24 09:31 Dose: 2 mg Ascorbic Acid (Ascorbic Acid 500 Mg Tablet) 500 mg PO DAILY [facility] Last Admin: 01/26/24 09:30 Dose: 500 mg Atorvastatin Calcium (Atorvastatin Calcium 40 Mg Tablet) 40 mg PO BEDTIME [facility] Last Admin: 01/25/24 21:13 Dose: 40 mg Buspirone HCl (Buspirone Hcl 5 Mg Tablet) 5 mg PO BID [facility] Last Admin: 01/26/24 09:32 Dose: 5 mg Calcium Carbonate (Calcium Carbonate 750 Mg Tab.Chew) 750 mg PO Q4H PRN PRN Reason: Heartburn Divalproex Sodium (Divalproex Sodium Er 500 Mg Tab.Er.24h) 500 mg PO BID [facility] Last Admin: 01/26/24 09:30 Dose: 500 mg Docusate Sodium (Docusate Sodium 100 Mg Capsule) 100 mg PO BID [facility] Last Admin: 01/26/24 09:32 Dose: 100 mg Enoxaparin Sodium (Enoxaparin Sodium 100 Mg/Ml Syringe) 100 mg 1 mg/kg (100 mg) SUBCUT Q12H [facility] Last Admin: 01/26/24 05:51 Dose: 100 mg Ferrous Sulfate (Ferrous Sulfate 324 Mg Tablet.Dr) 324 mg PO DAILY [facility] Last Admin: 01/26/24 09:31 Dose: 324 mg Gabapentin (Gabapentin 100 Mg Capsule) 100 mg PO TID [facility] Last Admin: 01/26/24 09:32 Dose: 100 mg Glucose (Glucose Gel 15 Gm Gel..Gram.) 15 gm PO Q15M PRN; Protocol PRN Reason: per Hypoglycemia Standing Ord. Dextrose (D10) 250 mls @ 750 mls/hr IV Q15M PRN; Protocol PRN Reason: per Hypoglycemia Standing Ord. Insulin Glargine (Insulin Glargine,Hum.Rec.Anlog 100 Unit/Ml 10 Ml Vial) 25 unit SUBCUT BEDTIME [facility] Last Admin: 01/25/24 21:12 Dose: 25 unit Insulin Human Lispro (Insulin Lispro 100 Unit/Ml 3 Ml Vial) 0 unit SUBCUT QIDACHS [facility]; Protocol Last Admin: 01/26/24 11:44 Dose: 6 unit Insulin Human Lispro (Insulin Lispro 100 Unit/Ml 3 Ml Vial) 8 unit SUBCUT QIDACHS [facility] Last Admin: 01/26/24 11:44 Dose: 8 unit Levothyroxine Sodium (Levothyroxine Sodium 100 Mcg Tablet) 100 mcg PO DAILY@0600 [facility] Last Admin: 01/26/24 05:49 Dose: 100 mcg Magnesium Hydroxide (Milk Of Magnesia 30 Ml Oral.Susp) 30 ml PO DAILY PRN PRN Reason: Constipation Last Admin: 01/25/24 21:13 Dose: 30 ml Melatonin (Melatonin 3 Mg Tablet) 6 mg PO BEDTIME PRN PRN Reason: Insomnia Metoprolol Succinate (Metoprolol Succinate Er 25 Mg Tab.Er.24h) 25 mg PO DAILY [facility]; Protocol Last Admin: 01/26/24 09:30 Dose: 25 mg Nystatin (Nystatin Powder 15 Gm Bottle) 1 appl TOPICAL BID PRN; Protocol PRN Reason: rash under breasts Nystatin (Nystatin Oral Susp 500,000 Unit/5 Ml Oral.Susp) 500,000 unit BUCCAL BID PRN; Protocol PRN Reason: oral thrush Omeprazole (Omeprazole 20 Mg Capsule.Dr) 20 mg PO DAILY@0630 [facility] Last Admin: 01/26/24 05:50 Dose: 20 mg Ondansetron HCl (Ondansetron Hcl 4 Mg/2 Ml Vial) 4 mg IVPUSH Q8H PRN PRN Reason: Nausea and Vomiting Oxybutynin Chloride (Oxybutynin Chloride Er 5 Mg Tab.Er.24) 10 mg PO DAILY [facility] Last Admin: 01/26/24 09:31 Dose: 10 mg Polyethylene Glycol (Polyethylene Glycol 3350 17 Gm Powd.Pack) 17 gm PO DAILY [facility] Last Admin: 01/26/24 09:32 Dose: 17 gm Prednisone (Prednisone 10 Mg Tablet) 30 mg PO DAILY [facility] Last Admin: 01/26/24 09:30 Dose: 30 mg Risperidone (Risperidone 2 Mg Tablet) 2 mg PO BID [facility] Last Admin: 01/26/24 09:32 Dose: 2 mg Sodium Biphosphate/Sodium Phosphate (Sodium Phosphate,[place]-Dibasic 133 Ml Enema) 133 ml [place] ONCE PRN PRN Reason: Constipation Sodium Chloride (0.9 % Sodium Chloride Flush 3 Ml Syringe) 3 ml IVFLUSH QSHIFT [facility] Last Admin: 01/26/24 09:35 Dose: 3 ml Vitamin D (Cholecalciferol (Vitamin D3) 25 Mcg Tablet) 25 mcg PO DAILY [facility] Last Admin: 01/26/24 09:30 Dose: 25 mcg Allergies Allergies Allergy/AdvReac Type Severity Reaction Status Date / Time amoxicillin [Amoxicillin] Allergy Intermediate SWELLING, Verified 01/19/24 21:51 rash Sulfa (Sulfonamide Allergy Intermediate itching & Verified 01/19/24 21:51 Antibiotics) bruising codeine [CODEINE] Allergy Unknown RASH Verified 01/19/24 21:51 dicyclomine Allergy Unknown Unknown Verified 01/19/24 21:51 lidocaine [LIDOCAINE] Allergy Unknown UNKNOWN Verified 01/19/24 21:51 lithium [LITHIUM] AdvReac Severe NEPHROGENIC Verified 01/19/24 21:51 DIABETES INSIPIDUS meclizine [Meclizine] AdvReac Intermediate INCREASES Verified 01/19/24 21:51 DIZZINESS simvastatin [SIMVASTATIN] AdvReac Intermediate MYALGIAS Verified 01/19/24 21:51 metronidazole [METRONIDAZOLE] AdvReac Mild FLU LIKE Verified 01/19/24 21:51 SYMPTOMS acyclovir AdvReac Unknown Unknown Verified 01/19/24 21:51 dulaglutide [From Trulicity] AdvReac Unknown dizziness, Verified 01/19/24 21:51 tongue swollen semaglutide [From Ozempic] AdvReac Unknown Dizziness, Verified 01/19/24 21:51 problems remembering Assessment & Plan Assessment & Plan (1) Bipolar affect, depressed: Status: Acute Code(s): F31.30 - Bipolar disorder, current episode depressed, mild or moderate severity, unspecified Plan The patient is an elderly female with a past history of bipolar disorder and other several medical comorbiliteis admitted for SOB in the context of COPD exacerbation. Currenlty, the team has noticed that her mood is more unstable and the patient admitted increased anxiety and restlessness. No acitve psychotic symptoms. Plan 1. Depakote level tomorrow AM. Adjust her Depakote accordingly to the level. Her Depakote dose has not been changed on a long time and it is possible that the patient would need an increase on her dose. 2. Increase Abilify from 2 mg po daily to 5 mg. 3. F/U as an outpatient. 4. Reassessment as demand. Total time managing care of this patient today ____ minutes. Patient educated on: diagnosis Informed Consent: understands
[2024-01-26] MEDS: Sodium Phosphate,Mono-Dibasic 133 ML ENEMA PR (13:57)
[2024-01-26 16:25] LABS: Glucose, Whole Blood 307 mg/dL (60-115)
[2024-01-26] MEDS: Milk of Magnesia 30 ML ORAL.SUSP PO (17:01)
[2024-01-26 20:17] LABS: Glucose, Whole Blood 287 mg/dL (60-115)
[2024-01-26] MEDS: Atorvastatin Calcium 40 MG TABLET PO (20:20)
[2024-01-26] MEDS: Insulin Glargine,Hum.rec.anlog 100 UNIT/ML 10 ML VIAL 25 UNIT SUBCUT (20:20)
--- NOTE | 2024-01-26 20:46 | P.PNPL_ITS ---
Subjective Subjective Date of Service: 01/26/24 Interval history: Seen and examined. Had a family meeting with her immediate family. Clinically the patient is doing better, oxygen requierements are improved and mentation is better. The patient understands that we are likely dealing with advance cancer and treatment options are limited. She does want to move forward with a biopsy. We did review the RUL mass, LLL nodule and bulky mediastinal LN. The daughter strongly recommends that she is under because she will not tolerate any procedures with local/moderate sedation. Based on anesthesia needs, I do believe that the better option is EBUS with TBNA of the mediastinal LN to minimize the risk of pneumothorax. We will schedule her to have an EBUS. But likely she can go to rehab and come in for the scheduled procedure. (not here next week) Consider PET scan. We will discuss as an outpt. Objective Data Labs 01/21/24 06:16 01/21/24 06:16 Labs: Laboratory Results - last 24 hr 01/25/24 01/26/24 01/26/24 20:43 07:47 11:14 POC Glucose 304 H 109 251 H 01/26/24 01/26/24 16:17 20:14 POC Glucose 307 H 287 H Review of Systems Constitutional: Reports fatigue, Denies malaise and Denies poor appetite Cardiovascular: Reports dyspnea on exertion Respiratory: Reports dyspnea on exertion and Denies wheezing Gastrointestinal: Reports constipation Genitourinary: Reports no additional female genitourinary complaints Endocrine: Reports fatigue Allergic/Immunologic: Denies wheezing Physical Exam 2 Vital Signs: Vital Signs: Last Vital Signs Temp 98.6 F 01/26/24 19:10 Pulse 69 01/26/24 19:33 Resp 16 01/26/24 19:33 BP 138/77 01/26/24 19:10 Pulse Ox 91 L 01/26/24 19:10 O2 Del Method Nasal Cannula 01/26/24 19:10 O2 Flow Rate 3 01/26/24 19:10 BMI result Body Mass Index 34.7 Const: General: comfortable HEENT: Head: Yes normocephalic Neck: Neck: Yes supple Chest: Chest palpation & inspection: normal inspection of the chest Resp: Effort & Inspection: normal respiratory effort Auscultation: d iminished lung sounds Cardio: Heart sounds: S1 normal heart sound present and S2 normal heart sound present GI: Palpation (GI): Soft to palpation Skin: General skin exam: no rashes or lesions noted Extrem: General: Yes no clubbing, cyanosis or edema Procedures Date of Service Date of Service: 01/26/24 Assessment and Plan Assessment and plan (1) COPD (chronic obstructive pulmonary disease): Status: Acute (2) Pulmonary nodules: Status: Acute (3) Mass of right lung: Status: Acute (4) Lymphadenopathy, mediastinal: Status: Acute Plan Monitor oxygen requirements. Titrate to keep pulse ox above 90% After the family meeting we will move forward with a biopsy. The family and patient feel strongly about anesthesia. Clinically she is better and should tolerate gen anesthesia. We will plan for EBUS/bronchoscopy to sample large right paratracheal LN. Could also consider CT guided biopsy of the RUL, but higher risk for PTX and sorrounded by vital structures. Consider PET scan after the biopsy Continue respiratory therapy Out of bed to the recliner with assistance and deep breathing exercises with incentive spirometer throughout the day Continue oxygen supplementation to maintain pulse ox above 88%, ok to go to rehab while she waits for the bronchoscopy date. Time Spent With Patient Time: Total time managing care of this patient today ____ minutes. Progress Note: Quality Stroke Does the patient have a stroke diagnosis?: No
[2024-01-27] VITALS (7 sets, daily range): BP systolic 123–135; BP diastolic 55–78; PULSE 61–87; RESP 14–20; TEMP 36.4–37; O2SAT 88–97
--- NOTE | 2024-01-27 04:50 | PC.NURSE ---
Pt AOx2, vague. Purewick in place, she was incontinent of urine during the shift. She remains on 2L O2 nc but states she feels weaker at times. Pt did not want to get OOB during this RN's shift. She can be cooperative w/care and meds but when family is not bedside she can be uncooperative w/meds and care. As soon as pt's son left for the night, pt informed this RN she did not want any more meds as the medication is making me worse . This RN attempted to educate pt on importance of taking her meds but pt stated she did not want any more medication. Will attempt again after she's had some sleep. Pt still has not had a BM but she is passing gas. Camera in room, bed alarm on, call butt within reach.
[2024-01-27] MEDS: Acetaminophen 325 MG TABLET 650 MG PO (05:46)
[2024-01-27 07:32] LABS: Valproate 44.5 mcg/mL (50.0-100.0)
[2024-01-27 08:14] LABS: Glucose, Whole Blood 132 mg/dL (60-115)
[2024-01-27] MEDS: risperiDONE 2 MG TABLET PO (08:41)
[2024-01-27] MEDS: Ferrous Sulfate 324 MG TABLET.DR PO (08:41)
[2024-01-27] MEDS: busPIRone HCl 5 MG TABLET PO (08:41)
[2024-01-27] MEDS: Metoprolol Succinate ER 25 MG TAB.ER.24H PO (08:42)
[2024-01-27] MEDS: Docusate Sodium 100 MG CAPSULE PO (08:42)
[2024-01-27] MEDS: predniSONE 20 MG TABLET PO (08:53)
[2024-01-27] MEDS: Gabapentin 100 MG CAPSULE PO ×2 (08:53→14:23)
[2024-01-27] MEDS: Insulin Lispro 100 UNIT/ML 3 ML VIAL 8 UNIT SUBCUT ×3 (08:55→17:23)
[2024-01-27] MEDS: 0.9 % Sodium Chloride Flush 3 ML SYRINGE IVFLUSH (08:57)
[2024-01-27] MEDS: oxyBUTYnin chloride ER 5 MG TAB.ER.24 10 MG PO (08:59)
[2024-01-27] MEDS: polyethylene glycoL 3350 17 GM POWD.PACK PO (09:03)
[2024-01-27] MEDS: Cholecalciferol (Vitamin D3) 25 MCG TABLET PO (09:06)
[2024-01-27] MEDS: Ascorbic Acid 500 MG TABLET PO (09:06)
[2024-01-27] MEDS: Divalproex Sodium ER 500 MG TAB.ER.24H PO (09:07)
[2024-01-27] MEDS: ARIPiprazole 5 MG TABLET PO (09:12)
[2024-01-27 11:10] LABS: Glucose, Whole Blood 246 mg/dL (60-115)
[2024-01-27] MEDS: Albuterol/Iprat 2.5/0.5MG 3 ML AMPUL.NEB INHALE ×2 (11:17→15:07)
[2024-01-27] MEDS: Insulin Lispro 100 UNIT/ML 3 ML VIAL SUBCUT ×2 (12:08→17:22)
--- NOTE | 2024-01-27 13:07 | P.PNIM_ITS ---
Subjective Subjective Date of Service: 01/27/24 Interval History: copd execerebation,lung mass ,constipation Review of Systems sob improving passed small bm yesterday passing gases , no abd pain Physical Exam 2 Vital Signs: Vital Signs: Last Vital Signs Temp 98.4 F 01/27/24 11:08 Pulse 66 01/27/24 11:19 Resp 20 01/27/24 11:19 BP 123/57 L 01/27/24 11:08 Pulse Ox 88 L 01/27/24 11:08 O2 Del Method Nasal Cannula 01/27/24 11:08 O2 Flow Rate 2.5 01/27/24 11:08 BMI result Body Mass Index 34.7 Appearance: Alert.? Oriented X3.? cvs: rrr, [id number]. res: air entry somewhat diminshed at bases,has mild wheezing b/l. abd: no rebound or guarding ,nt, bs present. ext pulses present , no cyanosis neuro: axo3 , nonfocal. Objective Data Active Medications Acetaminophen (Acetaminophen 325 Mg Tablet) 650 mg PO Q6H PRN PRN Reason: Pain, Mild (Pain Scale 1-3), fever or headache Last Admin: 01/27/24 05:46 Dose: 650 mg Documented By: WILL Albuterol/Ipratropium (Albuterol/Iprat 2.5/0.5mg 3 Ml Ampul.Neb) 3 ml INHALE RQ4H WHILE AWAKE [facility] Last Admin: 01/27/24 11:17 Dose: 3 ml Documented By: KEE Albuterol/Ipratropium (Albuterol/Iprat 2.5/0.5mg 3 Ml Ampul.Neb) 3 ml INHALE Q4H PRN PRN Reason: Wheezing Aripiprazole (Aripiprazole 5 Mg Tablet) 5 mg PO DAILY [facility] Last Admin: 01/27/24 09:12 Dose: 5 mg Documented By: NOMAN Ascorbic Acid (Ascorbic Acid 500 Mg Tablet) 500 mg PO DAILY [facility] Last Admin: 01/27/24 09:06 Dose: 500 mg Documented By: NOMAN Atorvastatin Calcium (Atorvastatin Calcium 40 Mg Tablet) 40 mg PO BEDTIME [facility] Last Admin: 01/26/24 20:20 Dose: 40 mg Documented By: WILL Buspirone HCl (Buspirone Hcl 5 Mg Tablet) 5 mg PO BID [facility] Last Admin: 01/27/24 08:41 Dose: 5 mg Documented By: NOMAN Calcium Carbonate (Calcium Carbonate 750 Mg Tab.Chew) 750 mg PO Q4H PRN PRN Reason: Heartburn Divalproex Sodium (Divalproex Sodium Er 500 Mg Tab.Er.24h) 500 mg PO BID [facility] Last Admin: 01/27/24 09:07 Dose: 500 mg Documented By: NOMAN Docusate Sodium (Docusate Sodium 100 Mg Capsule) 100 mg PO BID [facility] Last Admin: 01/27/24 08:42 Dose: 100 mg Documented By: NOMAN Enoxaparin Sodium (Enoxaparin Sodium 100 Mg/Ml Syringe) 100 mg 1 mg/kg (100 mg) SUBCUT Q12H [facility] Last Admin: 01/27/24 04:50 Dose: Not Given Documented By: WILL Non-Admin Reason: Patient Refused Ferrous Sulfate (Ferrous Sulfate 324 Mg Tablet.) 324 mg PO DAILY [facility] Last Admin: 01/27/24 08:41 Dose: 324 mg Documented By: NOMAN Gabapentin (Gabapentin 100 Mg Capsule) 100 mg PO TID [facility] Last Admin: 01/27/24 08:53 Dose: 100 mg Documented By: NOMAN Glucose (Glucose Gel 15 Gm Gel..Gram.) 15 gm PO Q15M PRN; Protocol PRN Reason: per Hypoglycemia Standing Ord. Dextrose (D10) 250 mls @ 750 mls/hr IV Q15M PRN; Protocol PRN Reason: per Hypoglycemia Standing Ord. Insulin Glargine (Insulin Glargine,Hum.Rec.Anlog 100 Unit/Ml 10 Ml Vial) 25 unit SUBCUT BEDTIME [facility] Last Admin: 01/26/24 20:20 Dose: 25 unit Documented By: WILL Insulin Human Lispro (Insulin Lispro 100 Unit/Ml 3 Ml Vial) 0 unit SUBCUT QIDACHS [facility]; Protocol Last Admin: 01/27/24 12:08 Dose: 4 unit Documented By: NOMAN Insulin Human Lispro (Insulin Lispro 100 Unit/Ml 3 Ml Vial) 8 unit SUBCUT QIDACHS [facility] Last Admin: 01/27/24 12:09 Dose: 8 unit Documented By: NOMAN Levothyroxine Sodium (Levothyroxine Sodium 100 Mcg Tablet) 100 mcg PO DAILY@0600 [facility] Last Admin: 01/27/24 04:50 Dose: Not Given Documented By: WILL Non-Admin Reason: Patient Refused Magnesium Hydroxide (Milk Of Magnesia 30 Ml Oral.Susp) 30 ml PO DAILY PRN PRN Reason: Constipation Last Admin: 01/25/24 21:13 Dose: 30 ml Documented By: SUZY Melatonin (Melatonin 3 Mg Tablet) 6 mg PO BEDTIME PRN PRN Reason: Insomnia Metoprolol Succinate (Metoprolol Succinate Er 25 Mg Tab.Er.24h) 25 mg PO DAILY [facility]; Protocol Last Admin: 01/27/24 08:42 Dose: 25 mg Documented By: NOMAN Nystatin (Nystatin Powder 15 Gm Bottle) 1 appl TOPICAL BID PRN; Protocol PRN Reason: rash under breasts Nystatin (Nystatin Oral Susp 500,000 Unit/5 Ml Oral.Susp) 500,000 unit BUCCAL BID PRN; Protocol PRN Reason: oral thrush Omeprazole (Omeprazole 20 Mg Capsule.Dr) 20 mg PO DAILY@0630 [facility] Last Admin: 01/27/24 04:50 Dose: Not Given Documented By: WILL Non-Admin Reason: Patient Refused Ondansetron HCl (Ondansetron Hcl 4 Mg/2 Ml Vial) 4 mg IVPUSH Q8H PRN PRN Reason: Nausea and Vomiting Oxybutynin Chloride (Oxybutynin Chloride Er 5 Mg Tab.Er.24) 10 mg PO DAILY [facility] Last Admin: 01/27/24 08:59 Dose: 10 mg Documented By: NOMAN Polyethylene Glycol (Polyethylene Glycol 3350 17 Gm Powd.Pack) 17 gm PO BID [facility] Last Admin: 01/27/24 09:03 Dose: 17 gm Documented By: NOMAN Prednisone (Prednisone 20 Mg Tablet) 20 mg PO DAILY [facility] Last Admin: 01/27/24 08:53 Dose: 20 mg Documented By: NOMAN Risperidone (Risperidone 2 Mg Tablet) 2 mg PO BID [facility] Last Admin: 01/27/24 08:41 Dose: 2 mg Documented By: NOMAN Sodium Biphosphate/Sodium Phosphate (Sodium Phosphate,[place]-Dibasic 133 Ml Enema) 133 ml FL ONCE PRN PRN Reason: Constipation Last Admin: 01/26/24 13:57 Dose: 133 ml Documented By: RYAN Sodium Biphosphate/Sodium Phosphate (Sodium Phosphate,[place]-Dibasic 133 Ml Enema) 133 ml FL ONCE PRN PRN Reason: Constipation Sodium Chloride (0.9 % Sodium Chloride Flush 3 Ml Syringe) 3 ml IVFLUSH QSHIFT [facility] Last Admin: 01/27/24 08:57 Dose: 3 ml Documented By: NOMAN Vitamin D (Cholecalciferol (Vitamin D3) 25 Mcg Tablet) 25 mcg PO DAILY [facility] Last Admin: 01/27/24 09:06 Dose: 25 mcg Documented By: NOMAN Labs 01/21/24 06:16 01/21/24 06:16 Labs: Laboratory Results - last 24 hr 01/26/24 01/26/24 01/27/24 16:17 20:14 06:22 Hold Purple Top SEE NOTE POC Glucose 307 H 287 H Valproic Acid 44.5 L 01/27/24 01/27/24 07:44 11:07 Hold Purple Top POC Glucose 132 H 246 H Valproic Acid Assessment and Plan (1) COPD (chronic obstructive pulmonary disease): Status: Acute Assessment and Plan: 78-year-old female with pertinent history of former tobacco use disorder, bipolar disorder, paroxysmal atrial fibrillation on anticoagulation, hypothyroidism, insulin-dependent diabetes mellitus, mixed hyperlipidemia admitted for acute hypoxemic respiratory failure due to COPD exacerbation found to have new right upper lobe and paratracheal mass Acute hypoxic respiratory failure due to exacerbation of obstructive lung disease Likely has underlying COPD in the setting of former tobacco use. Imaging with right upper lobe mass and right paratracheal mass which may be contributing. sob and mentation improving continue nebs,steriods , need oxygen titrate up (titer to sats 90%) pulm following-continue above management, monitor oxygen needs, may need lung biopsy earlier next week. Right lung upper lobe and right paratracheal mass Suspicious for primary lung cancer with metastasis ct abd added oncology eval Paroxysmal atrial fibrillation-rate controlled Hold Eliquis due to possible biopsy per pulmonology times 2-3 days. Will initiate therapeutic Lovenox Continue metoprolol for rate control Bipolar disorder: depakote levels 44.5 seen by psych: depakote adjusted to 500mg am,50 mg bedtime,abilify 5 mg po daily. Continue home mood stabilizers Hypothyroidism:On Synthroid Insulin-dependent diabetes mellitus with hyperglycemia : POC glucose, diabetic diet adjusted lantus and continue humalog 8 units tid,Humalog on sliding scale Hold metformin Mixed hyperlipidemia statin DVT prophylaxis: lovenox (therapeutic). . ongoing hospital stay need for supplemental oxygen, evaluation of right lung mass (as above), which is not possible in a lesser acute setting. (2) Acute respiratory failure: Status: Acute Quality Stroke Does the patient have a stroke diagnosis?: No VTE Prior VTE?: No VTE Risk Level:: Medical - moderate - high VTE Device Contraindication: N/A - Device Ordered VTE Drug Contraindication: Treatment Not Indicated
--- NOTE | 2024-01-27 13:56 | MHC.CM.PN ---
Per ROUNDS discussion, Patient is medically cleared for dc to [facility]; [facility] still awaits insurance auth. CM will follow.
[2024-01-27] MEDS: Milk of Magnesia 30 ML ORAL.SUSP PO (14:23)
--- NOTE | 2024-01-27 14:44 | MHC.CM.PN ---
Patient has been medically cleared for dc to [facility]. [facility] will dc [facility] today at 4:30PM, via [facility] CM spoke with /HCP/[facility] @ [phone] and original IMM will be mailed certified letter to [facility] and a copy has been placed on the chart.
--- NOTE | 2024-01-27 15:17 | P.DS_ITS ---
DS: Providers Provider Date of Service: 01/27/24 Date of admission: 01/20/24 02:46 Date of discharge: 01/27/24 Primary care physician: Brown Dickson MD Admitting clinician: Urszlua Esqueda Attending physician on admission: Urszula Esqueda Consults: 01/20/24 06:28 Consult to Hematology / Oncology Routine Consulting Provider: [facility] [place] Oncology/Hematology Reason for consultation: lung mass Consult to Pulmonology Routine Consulting Provider: [facility] [place] Pulmonology Services Reason for consultation: lung mass 01/20/24 09:56 Consult to Psychiatry Routine Consulting Provider: Psych Covering Reason for consultation: Capacity _ ?judgement/insight 01/24/24 12:07 Consult to Psychiatry Routine Consulting Provider: Psych Covering Reason for consultation: mood dis Has provider been notified: No Attending physician on discharge: David Vasquez Discharging clinician: David Vasquez DS: Diagnosis Discharge Diagnosis (1) COPD (chronic obstructive pulmonary disease): Status: Acute (2) Acute respiratory failure: Status: Acute DS: Summary Hospital Course Hospital Course: 78-year-old female with pertinent history of former tobacco use disorder, bipolar disorder, paroxysmal atrial fibrillation on anticoagulation, hypothyroid ism, insulin-dependent diabetes mellitus, mixed hyperlipidemia who was brought to the emergency department for evaluation of dyspnea. History obtained with the help of daughter at bedside. The daughter states that patient has been dyspneic with exertion that has been ongoing for the last 6 months. It has been progressive in onset. Daughter also reports that patient has been wheezing. No diagnosis of COPD or asthma and patient is not on home inhalers. On the day of presentation patient also complained of back pain and had an episode of bowel incontinence. Patient's was unable to take care of the patient and patient was sent to the ER for further evaluation. She does complain of dyspnea at the time of my examination. Denies cough. Admits wheezing. No lower extremity edema, orthopnea or PND. Denies fever, chills, chest discomfort, palpitations. In the emergency department, patient was found to be hypoxic and given breathing treatments. Imaging with right upper lobe mass with right paratracheal mediastinal mass. Hospital course: Patient admitted for shortness of breath found to have acute hypoxemic respiratory failure likely due to COPD exacerbation, chest imaging found to have mass in the right lung, lymphadenopathy mediastinal(please see detailed report in the imaging section), further workup with CT abdomen and MRI of brain was done MRI brain seems negative, CT abdomen showedSmall 1 x 0.8 cm low-attenuation mass in the hepatic dome, not seen on prior exam: Patient was initially started on nebs, steroids, oxygen, seen by Pulmonary and Oncology: With above supportive care patient shortness of breath seems to be improved significantly, titrate oxygen in rehab for sats around 90%, will send patient with prednisone 20 mg for 2 more days. In addition discussed with the Pulmonary and Oncology in detail: According to pulmonary patient might benefit from EBUS with TBNA of the mediastinal LN to minimize the risk of pneumothorax. pulm will schedule her to have an EBUS outpatient .patient likely can go to rehab and come in for the scheduled procedure. (not here next week) Consider PET scan. We will discuss as an outpt, also consider outpatient sleep study and pft's,pet scan. Mood disorder : Patient seen by psych, Abilify adjusted to 5 mg daily, also Depakote levels are 44.5, psych recommended to adjust Depakote 500 mg q.a.m. and 750mg po bedtime. repeat depakote levels in rehab. moniter lft's in rehab in 1 week. consider outpatient psych eval . Patient has history of paroxysmal atrial fibrillation: Eliquis is on hold, currently on Lovenox in anticipation of if needed lung biopsy outpatient, consider switching back to eliquis once biospy completed. dm with hyperglycemia: improving continue lantus,admelog, sliding scale coverage, metformin . Constipation: Patient received laxatives and also enema yesterday she passed small BM, patient passing gases tolerating diet no abdominal pain: Continue laxatives, if needed p.r.n. enemas. plan: Further lung biopsy and workup as per Pulmonary and Oncology outpatient. Follow-up with Dr. Trevizo and Dr. Roach. Abilify adjusted to 5 mg daily, Depakote adjusted to 750mg p.o. at bedtime as above. Can switch back to Eliquis outpatient once biopsy completed. Above management discussed with the family by Pulmonary and hospitalist service in detail-they understand and in agreement with the plan, time spent 40 minute. Time Attestation Total time managing care of this patient today: 40 mintues. Discharge Coordination Time (in mins): 40 min Quality: Safe Use of Opioids Does Pt have an Active Cancer Diagnosis on the Problem List?: No Quality: Stroke Does the patient have a stroke diagnosis?: No Physical Exam Vital Signs: Vital Signs: Last Vital Signs Temp 98.4 F 01/27/24 11:08 Pulse 74 01/27/24 15:12 Resp 20 01/27/24 15:12 BP 123/57 L 01/27/24 11:08 Pulse Ox 88 L 01/27/24 11:08 O2 Del Method Nasal Cannula 01/27/24 11:08 O2 Flow Rate 2.5 01/27/24 11:08 BMI result Body Mass Index 34.7 Appearance: Alert.? Oriented X3.? cvs: rrr, [id number]. res: air entry somewhat diminshed at bases,has mild wheezing b/l. abd: no rebound or guarding ,nt, bs present. ext pulses present , no cyanosis neuro: axo3 , nonfocal. DS: Data Data Completed and Pending Labs on day of discharge: Laboratory Results - last 24 hr 01/26/24 01/26/24 01/27/24 16:17 20:14 06:22 Hold Purple Top SEE NOTE POC Glucose 307 H 287 H Valproic Acid 44.5 L 01/27/24 01/27/24 07:44 11:07 Hold Purple Top POC Glucose 132 H 246 H Valproic Acid Imaging Chest x-ray: Radiologist's impression: ITS Impressions Chest X-Ray 01/19/24 22:24 IMPRESSION: New soft tissue attenuation in the right paratracheal region, suspicious for a mediastinal mass. Contrast-enhanced CT has already been ordered for further evaluation Hip/Pelvis X-Ray 01/19/24 22:24 IMPRESSION: No acute findings identified. Degenerative changes of the hips, right greater than left. Lumbar Spine X-Ray 01/19/24 22:24 IMPRESSION: 1. Slight loss of height in the superior endplate of L1, age-indeterminate. 2. Grade 1 anterolistheses of L4 on L5, favored to be chronic/degenerative in nature in the setting of severe lower lumbar facet arthropathy. Chest CT 01/19/24 23:45 IMPRESSION: 1. Right paratracheal mediastinal mass measuring up to 5.4 cm, suspicious for metastatic disease given the pulmonary findings described below, or potentially a primary neoplasm such as lymphoma. Further workup recommended which may include tissue sampling. 2. Focal masslike opacity in the anterior apical right upper lobe measuring up to 2.8 cm, concerning for malignancy such as primary lung cancer. Further workup with tissue sampling is recommended. A nearby subpleural nodule measuring 6 mm is suspicious for satellite nodule. 3. Multiple right pleural masses, suspicious for metastatic disease. 4. Trace right pleural effusion. 5. Chronic left lower lobe nodule with internal calcification, favoring a benign etiology. 6. Slight superior endplate height loss and L1, age indeterminate. Acute endplate fracture cannot be excluded in the proper clinical setting. Abdomen/Pelvis CT 01/21/24 11:55 IMPRESSION: 1. No evidence of metastatic disease to the abdomen or pelvis. 2. Small 1 x 0.8 cm low-attenuation mass in the hepatic dome, not seen on prior exam. Given the patient's history of newly diagnosed lung cancer, further assessment with MRI scan of the abdomen with and without contrast is recommended to exclude metastatic disease. 3. Small right pleural effusion. 4. Slowly progressive increase in size of pleural-based mass in the posterior medial left lower lobe. Given the slow rate of change, a indolent etiology is suspected, perhaps a fibrous tumor of the pleura. Continued attention on follow-up imaging is recommended. 5. Markedly atrophic pancreas with multiple pancreatic calcifications and pancreatic ductal dilatation. 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 6. Nonobstructing lower pole right renal calculi. 7. Extensive atherosclerotic vascular disease. 8. Mild superior endplate compression deformity of the L1 vertebral body, new from 03/24/2017. Brain MRI 01/23/24 15:14 IMPRESSION: 1. No evidence of intracranial metastatic disease. 2. Mild to moderate global cerebral volume loss and white matter signal changes, presumably moderate chronic microangiopathy. 3. Expanded partially empty sella. Discharge Plan Discharge Anticipated Discharge Date/Time: 01/27/24 14:33 Patient Disposition: er SNF Discharge Diagnosis: acute hypoxemic respiratory failure secondary to COPD/lung mass,Constipation, dm with hyperglycemia Referrals: [facility] [place] [Outside] - 1 Week Brown Dickson MD [Primary Care Provider] - 1 Week Alejandra Roach MD [Physician] - 1 Week Miguel Trevizo MD [Physician] - 1 Week Discharge Medications: New enoxaparin 100 mg/mL Syringe 100 mg subcut Q12H Qty: 10 0RF divalproex [Depakote ER] 250 mg tablet extended release 24 hr 250 mg PO BEDTIME Qty: 1 0RF docusate sodium 100 mg Capsule 100 mg PO BID Qty: 1 0RF magnesium hydroxide [Milk of Magnesia] 400 mg/5 mL Suspension 30 ml PO DAILY PRN (Reason: Constipation) Qty: 1 0RF polyethylene glycol 3350 17 gram Powder In Packet 17 g PO BID Qty: 1 0RF Fleet Enema 19-7 gram/118 mL Enema 133 ml LA ONCE PRN (Reason: Constipation) Qty: 1 0RF prednisone 20 mg tablet 20 mg PO DAILY Qty: 2 0RF insulin lispro [Admelog U-100 Insulin lispro] 100 unit/mL Solution 6 unit subcut QIDACHS Qty: 1 0RF insulin lispro [Admelog U-100 Insulin lispro] 100 unit/mL Solution See Protocol subcut QIDACHS Qty: 1 0RF Protocol: Insulin Correction Scale Less than or equal to 110 ---- Give (units): 0 111 to 150 Give (units): 0 151 to 200 Give (units): 2 201 to 250 Give (units): 4 251 to 300 Give (units): 6 301 to 350 Give (units): 10 Greater than 350 Give (units): 12 Call MD if Blood Glucose > : 350 Continued (DME) lancing device with lancets [YouTabuch MyTrainer Lanc Device] Kit See Rx Instructions .ROUTE .MEDSUPPLY Qty: 1 Rx Instructions: As directed ascorbic acid (vitamin C) [Vitamin C] 500 mg tablet 500 mg PO DAILY Qty: 90 3RF nystatin 100,000 unit/mL suspension 1 ml buccal BID PRN (Reason: oral thrush) 30 Days Qty: 60 3RF Rx Instructions: administer 1/2 of dose in each side of the mouth ferrous fumarate [Ferrocite] 324 mg (106 mg iron) tablet 324 mg PO DAILY Qty: 100 2RF cholecalciferol (vitamin D3) [Vitamin D3] 25 mcg (1,000 unit) tablet 25 mcg PO DAILY Qty: 90 5RF pantoprazole 40 mg tablet,delayed release (DR/EC) 40 mg PO DAILY@0630 Qty: 90 2RF levothyroxine 100 mcg tablet 100 mcg PO DAILY Qty: 90 1RF metoprolol succinate 25 mg tablet extended release 24 hr 25 mg PO DAILY Qty: 90 3RF insulin glargine [Lantus Solostar U-100 Insulin] 100 unit/mL (3 mL) insulin pen 24 unit subcut QPM Qty: 15 4RF gabapentin 100 mg capsule 100 mg PO TID Qty: 90 3RF metformin 500 mg tablet extended release 24 hr 500 mg PO BID Qty: 180 1RF (DME) pen needle, diabetic [BD Flory 2nd Gen Pen Needle] 32 gauge x 5/32 needle See Rx Instructions .ROUTE .COMPLEX Qty: 100 0RF Dose Instruction: DIRECTED INJECTS 4 X/SDAY Rx Instructions: DIRECTED INJECTS 4 X/SDAY oxybutynin chloride 5 mg tablet 5 mg PO BID Qty: 180 1RF atorvastatin 40 mg tablet 40 mg PO BEDTIME nystatin 100,000 unit/gram powder 1 appl topical BID PRN (Reason: rash under breasts) divalproex 500 mg tablet extended release 24 hr 500 mg PO BID Patient Comments: mood stabilizer buspirone 5 mg tablet 5 mg PO BID Patient Comments: for anxiety (DME) pen needle, diabetic [Easy Comfort Pen [place]] 33 gauge x 5/32 needle See Rx Instructions .Route Qty: 100 5RF Rx Instructions: As directed injects 4 X/sday risperidone 2 mg tablet 2 mg PO BID Changed aripiprazole 5 mg tablet 5 mg PO DAILY Qty: 1 0RF Discontinued Eliquis 5 mg tablet 5 mg PO BID Qty: 60 2RF lorazepam 1 mg tablet 1 mg PO BID PRN (Reason: Anxiety) Discharge Orders: Discharge Order (Routine); Ordered 01/27/24 Ordered By: David Vasquez Diet: Advance to usual diet Activity on Discharge: As tolerated Stand Alone Forms: Patient Portal Discharge page Print Language: [place] Care Plan Goals: Patient admitted for shortness of breath found to have acute hypoxemic respiratory failure likely due to COPD exacerbation, chest imaging found to have mass in the right lung, lymphadenopathy mediastinal(please see detailed report in the imaging section), further workup with CT abdomen and MRI of brain was done MRI brain seems negative, CT abdomen showedSmall 1 x 0.8 cm low-attenuation mass in the hepatic dome, not seen on prior exam: Patient was initially started on nebs, steroids, oxygen, seen by Pulmonary and Oncology: With above supportive care patient shortness of breath seems to be improved significantly, titrate oxygen in rehab for sats around 90%, will send patient with prednisone 20 mg for 2 more days. In addition discussed with the Pulmonary and Oncology in detail: According to pulmonary patient might benefit from EBUS with TBNA of the mediastinal LN to minimize the risk of pneumothorax. pulm will schedule her to have an EBUS outpatient .patient likely can go to rehab and come in for the scheduled procedure. (not here next week) Consider PET scan. We will discuss as an outpt, also consider outpatient sleep study and pft's,pet scan. Mood disorder : Patient seen by psych, Peter adjusted to 5 mg daily, also Depakote levels are 44.5, psych recommended to adjust Depakote 500 mg q.a.m. and 750mg po bedtime. repeat depakote levels in rehab. moniter lft's in rehab in 1 week. consider outpatient psych eval . Patient has history of paroxysmal atrial fibrillation: Eliquis is on hold, currently on Lovenox in anticipation of if needed lung biopsy outpatient, con regional transportation manager switching back to eliquis once biospy completed. dm with hyperglycemia: improving continue lantus,admelog, sliding scale coverage, metformin . Constipation: Patient received laxatives and also enema yesterday she passed small BM, patient passing gases tolerating diet no abdominal pain: Continue laxatives, if needed p.r.n. enemas. Above management discussed with the family by Pulmonary and hospitalist service in detail-they understand and in agreement with the plan, time spent 40 minute. Health Concerns: Further lung biopsy and workup as per Pulmonary and Oncology outpatient. Follow-up with Dr. Trevizo and Dr. Roach. Abilify adjusted to 5 mg daily, Depakote adjusted to 75omg p.o. at bedtime as above. Can switch back to [facility] outpatient once biopsy completed. Plan of Treatment: As above. Assessment: As above.
[2024-01-27] MEDS: Sodium Phosphate,Mono-Dibasic 133 ML ENEMA PR (16:34)
[2024-01-27 17:11] LABS: Glucose, Whole Blood 259 mg/dL (60-115)
[2024-01-27] MEDS: Enoxaparin Sodium 100 MG/ML SYRINGE SUBCUT (17:18)
== END 2024-01-27 19:19 | disposition skilled nursing facility (03) | DRG 191 ==
LOC: HO.ED 23:06 → HO.EDOVER 01-20 02:52 → HO.IMC 01-20 04:09
PROVIDERS: Hospitalist; Internal Medicine; Physician Assistant; Psychiatry & Neurology Psychiatry; Admitting Provider Student in an Organized Health Care Education/Training Program; Emergency Provider Internal Medicine; PCP Internal Medicine; Visit Provider Internal Medicine
DX: J44.1 Chronic obstructive pulmonary disease with (acute) exacerbation (principal); C34.11 Malignant neoplasm of upper lobe, right bronchus or lung; C78.2 Secondary malignant neoplasm of pleura; F31.30 Bipolar disorder, current episode depressed, mild or moderate severity, unspecified; C77.1 Secondary and unspecified malignant neoplasm of intrathoracic lymph nodes; C78.02 Secondary malignant neoplasm of left lung; E66.9 Obesity, unspecified; K59.00 Constipation, unspecified; E11.65 Type 2 diabetes mellitus with hyperglycemia; Z66 Do not resuscitate; Z68.34 Body mass index [BMI] 34.0-34.9, adult; I48.0 Paroxysmal atrial fibrillation; G47.30 Sleep apnea, unspecified; E03.9 Hypothyroidism, unspecified; E78.2 Mixed hyperlipidemia; Z20.822 Contact with and (suspected) exposure to COVID-19; Z87.891 Personal history of nicotine dependence; Z79.4 Long term (current) use of insulin; Z79.01 Long term (current) use of anticoagulants; Z79.84 Long term (current) use of oral hypoglycemic drugs; Z79.890 Hormone replacement therapy; Z79.899 Other long term (current) drug therapy
CPT/HCPCS: 0241U; 36415; 70553; 71045; 71260; 72100; 73502; 74177; 80048; 80053; 80164; 81003; 82378; 82803; 82947; 83615; 83880; 84484; 85025; 93005; 94640; 97116; 97162; 97530; 99285; A9585; J0131; J1650; J1940; J2060; J2270; J2405; J2919; J7120; Q9967

== ENCOUNTER → 2024-01-19 21:56 | Outpatient (BNV) | payer MEDICARE, SELFPAY | PROVIDERS: Admitting Provider Student in an Organized Health Care Education/Training Program; Emergency Provider Internal Medicine; Visit Provider Internal Medicine Cardiovascular Disease | DX: R94.31 Abnormal electrocardiogram [ECG] [EKG] (principal) | CPT/HCPCS: 93010 ==

== ENCOUNTER → 2024-01-20 02:46 | Outpatient (BNV) | payer MEDICARE, SELFPAY | PROVIDERS: Admitting Provider Student in an Organized Health Care Education/Training Program; Emergency Provider Internal Medicine; Visit Provider Hospitalist | DX: J41.0 Simple chronic bronchitis (principal); R91.8 Other nonspecific abnormal finding of lung field; R59.0 Localized enlarged lymph nodes | CPT/HCPCS: 99223; 99233 ==

== ENCOUNTER → 2024-01-20 02:46 | Outpatient (BNV) | payer MEDICARE, SELFPAY | PROVIDERS: Admitting Provider Student in an Organized Health Care Education/Training Program; Emergency Provider Internal Medicine; Visit Provider Student in an Organized Health Care Education/Training Program | DX: J41.0 Simple chronic bronchitis (principal); J96.01 Acute respiratory failure with hypoxia | CPT/HCPCS: 99223; 99231; 99232; 99239; 99499 ==

== ENCOUNTER → 2024-01-20 02:46 | Outpatient (BNV) | payer MEDICARE, SELFPAY | PROVIDERS: Admitting Provider Student in an Organized Health Care Education/Training Program; Emergency Provider Internal Medicine; Visit Provider Internal Medicine | DX: R09.02 Hypoxemia (principal); R91.8 Other nonspecific abnormal finding of lung field; R41.82 Altered mental status, unspecified | CPT/HCPCS: 99222 ==

== ENCOUNTER → 2024-01-20 02:46 | Outpatient (BNV) | payer MEDICARE, SELFPAY | PROVIDERS: Admitting Provider Student in an Organized Health Care Education/Training Program; Emergency Provider Internal Medicine; Visit Provider Psychiatry & Neurology Psychiatry | DX: F31.30 Bipolar disorder, current episode depressed, mild or moderate severity, unspecified (principal) | CPT/HCPCS: 99222; 99232 ==

== ENCOUNTER 2024-01-31 13:16 | Inpatient (IN) | payer MEDICARE, SELFPAY ==
[2024-01-31] VITALS (9 sets, daily range): BP systolic 106–139; BP diastolic 58–79; PULSE 67–86; RESP 15–20; TEMP 36–36.9; O2SAT 90–96; BMI 33.8
--- NOTE | ~2024-01-31 | CT_ITS ---
EXAMINATION: CT ANGIOGRAM OF THE CHEST WITH AND WITHOUT CONTRAST (CT PULMONARY ANGIOGRAM FOR PE) CLINICAL INFORMATION: Reason for Exam hypoxia COMPARISON: CT chest dated 01/19/2024. TECHNIQUE: Prior to contrast administration, noncontrast localization images were obtained. Subsequently, multidetector volumetric imaging was performed from the thoracic inlet to below the diaphragms following the administration of 80 mL Omnipaque 350 intravenous contrast. No contrast reaction reported Sagittal, coronal, and MIP oblique sagittal reformatted images were obtained on the CT workstation, uploaded to PACS, and reviewed. This CT examination was performed using dose optimization techniques as appropriate, variously including the following: *Automated exposure control *Adjustment of mA and/or kV according to patient size (this includes techniques or standardized protocols for targeted exams where dose is matched to indication/reason for exam; i.e. extremities or head) *Use of iterative reconstruction technique Total exam dose-length product 421 mGy-cm FINDINGS: QUALITY OF STUDY/CONTRAST BOLUS: Satisfactory. PULMONARY ARTERIES: No central pulmonary embolism. No lobar pulmonary embolism. Evaluation of the segmental and subsegmental arteries is limited secondary to mixing artifact. THORACIC AORTA: No aneurysm. There is scattered calcific atherosclerotic disease. LUNG: Again demonstrated is a 2.7 x 2.6 cm irregularly shaped nodule in the anterior apical right upper lobe. As previously stated on chest CT dated 01/19/2024 this is concerning for malignancy. There is a 1.3 x 1.4 cm nodule along the posterior left lower lobe abutting the pleura, unchanged from prior examination. PLEURA: There is a small right pleural effusion. There is a trace left pleural effusion. No pneumothorax. MEDIASTINUM: The heart is mildly enlarged. No pericardial effusion. There is a 4.6 x 4.0 cm right paratracheal mediastinal mass redemonstrated. This is highly suspicious for metastatic lymphadenopathy versus primary neoplasm. No evidence of septal bowing or right heart strain. CORONARY ARTERY CALCIFICATION: Coronary artery calcification is present. CHEST WALL/AXILLA: No axillary or internal mammary lymphadenopathy. OSSEOUS STRUCTURES: Age indeterminate superior endplate height loss in L1. UPPER ABDOMEN: Unremarkable. No reflux of contrast into the hepatic veins to suggest elevated right heart pressures. CT/CT angio chest PE protocol IMPRESSION: No pulmonary embolism. Right paratracheal mediastinal mass measuring up to 4.6 cm, suspicious for metastatic disease given the pulmonary findings, or potentially a primary neoplasm such as lymphoma. Again demonstrated is a 2.7 x 2.6 cm irregularly shaped nodule in the anterior apical right upper lobe. As previously stated on chest CT dated 01/19/2024 this is concerning for malignancy. There is a 1.3 x 1.4 cm nodule along the posterior left lower lobe abutting the pleura, unchanged from prior examination. Small bilateral pleural effusions, right greater than left. VTE: Negative.
--- NOTE | ~2024-01-31 | XR_ITS ---
EXAMINATION: XR CHEST CLINICAL INFORMATION: Hypoxia. COMPARISON: CTA chest 01/31/2024. TECHNIQUE: Frontal view of the chest was obtained. FINDINGS: The endotracheal tube terminates at 3.7 cm above the britta. Stable enlargement of the upper cardiomediastinal silhouette in part related with a large paratracheal mass that is best characterized on prior CT. Increased airspace densities projecting over the left lower lung base. Similar degree of diffuse interstitial prominence. Redemonstration of nodular-like abnormality in the apical right upper lobe, best visualized on prior CT. No significant right-sided pleural effusion. No pneumothorax. No acute osseous findings. XR/XR chest 1V IMPRESSION: 1. The endotracheal tube terminates at 3.7 cm above the britta. 2. Increased airspace densities in the left lower lung base, indeterminate could represent a combination of worsening atelectasis and pleural effusion. 3. Redemonstration of a large paratracheal mass, best visualized on prior CT. 4. Redemonstration of nodular-like abnormality in the apical right upper lobe, best visualized on prior CT. Electronically signed by: Estee Cuevas MD 02/07/2024 02:17 PM EDT
--- NOTE | 2024-01-31 13:35 | ED.GENADULT ---
HPI - General Adult General Chief complaint: Dyspnea Stated complaint: LOW O2 SAT Time Seen by Provider: 01/31/24 13:22 Source: patient and EMS Mode of arrival: EMS Limitations: no limitations History of Present Illness HPI narrative: This is a 78-year-old woman with a past medical history of former tobacco use disorder, bipolar disorder, paroxysmal atrial fibrillation on anticoagulation, hypothyroidism, insulin-dependent diabetes mellitus, mixed hyperlipidemia, ? COPD, right lung mass, mediastinal lymphadenopathy, 1 x 0.8 cm hepatic mass who presents for evaluation of hypoxia. EMS reports that patient is coming from rehab is on 2 liters/minute nasal cannula supplemental oxygen at baseline. EMS states that staff was unable to obtain SpO2 higher than 84% and for this reason patient is brought to the emergency room for evaluation. Related Data Home Medications ?Medication ?Instructions ?Recorded ?Confirmed lancing device with lancets kit #1 ea 05/11/20 12/05/23 (i.Meter Lancing Device kit) buspirone 5 mg tablet 5 mg PO BID anxiety 03/01/22 01/20/24 divalproex 500 mg tablet,extended 500 mg PO BID 03/01/22 01/20/24 release 24 hr risperidone 2 mg tablet 2 mg PO BID 05/20/23 01/20/24 atorvastatin 40 mg tablet 40 mg PO BEDTIME 01/20/24 01/20/24 nystatin 100,000 unit/gram topical 1 appl topical BID PRN rash under 01/20/24 01/20/24 powder breasts Previous Rx's ?Medication ?Instructions ?Recorded pen needle, diabetic 33 gauge x #100 ea 03/29/22 (Easy Comfort Pen [place]) ascorbic acid (vitamin C) 500 mg 500 mg PO DAILY #90 tabs 03/14/23 tablet (Vitamin C) ferrous fumarate 324 mg (106 mg 324 mg PO DAILY #100 tabs 03/19/23 iron) tablet (Ferrocite) nystatin 100,000 unit/mL oral 1 ml buccal BID PRN oral thrush 30 03/19/23 suspension days #60 mL cholecalciferol (vitamin D3) 25 25 mcg PO DAILY #90 tabs 06/11/23 mcg (1,000 unit) tablet (Vitamin D3) pantoprazole 40 mg tablet,delayed 40 mg PO DAILY@0630 #90 tabs 07/17/23 release levothyroxine 100 mcg tablet 100 mcg PO DAILY #90 tabs 07/22/23 metoprolol succinate 25 mg 25 mg PO DAILY #90 tabs 10/11/23 tablet,extended release 24 hr insulin glargine 100 unit/mL (3 24 unit (0.24 mL) subcut QPM #15 mL 11/13/23 mL) subcutaneous pen (Lantus Solostar U-100 Insulin) gabapentin 100 mg capsule 100 mg PO TID #90 caps 11/25/23 metformin 500 mg tablet,extended 500 mg PO BID #180 tabs 12/14/23 release 24 hr pen needle, diabetic 32 gauge x #100 ea 12/29/23 (BD Flory 2nd Gen Pen Needle) oxybutynin chloride 5 mg tablet 5 mg PO BID #180 tabs 01/08/24 aripiprazole 5 mg tablet 5 mg PO DAILY #1 tab 01/27/24 divalproex 250 mg tablet,extended 250 mg PO BEDTIME #1 tab 01/27/24 release 24 hr (Depakote ER) docusate sodium 100 mg capsule 100 mg PO BID #1 cap 01/27/24 enoxaparin 100 mg/mL subcutaneous 100 mg subcut Q12H #10 mL 01/27/24 syringe insulin lispro 100 unit/mL 6 unit (0.06 mL) subcut QIDACHS #1 01/27/24 subcutaneous solution (Admelog mL U-100 Insulin lispro) insulin lispro 100 unit/mL See Protocol subcut QIDACHS #1 mL 01/27/24 subcutaneous solution (Admelog U-100 Insulin lispro) magnesium hydroxide 400 mg/5 mL 30 ml PO DAILY PRN Constipation #1 01/27/24 oral suspension (Milk of Magnesia) mL polyethylene glycol 3350 17 gram 17 g PO BID #1 ea 01/27/24 oral powder packet prednisone 20 mg tablet 20 mg PO DAILY #2 tabs 01/27/24 sodium phosphates 19 gram-7 133 ml OK ONCE PRN Constipation #1 01/27/24 gram/118 mL enema (Fleet Enema) mL Allergies Allergy/AdvReac Type Severity Reaction Status Date / Time amoxicillin [Amoxicillin] Allergy Intermediate SWELLING, Verified 01/31/24 13:34 rash Sulfa (Sulfonamide Allergy Intermediate itching & Verified 01/31/24 13:34 Antibiotics) bruising codeine [CODEINE] Allergy Unknown RASH Verified 01/31/24 13:34 dicyclomine Allergy Unknown Unknown Verified 01/31/24 13:34 lidocaine [LIDOCAINE] Allergy Unknown UNKNOWN Verified 01/31/24 13:34 lithium [LITHIUM] AdvReac Severe NEPHROGENIC Verified 01/31/24 13:34 DIABETES INSIPIDUS meclizine [Meclizine] AdvReac Intermediate INCREASES Verified 01/31/24 13:34 DIZZINESS simvastatin [SIMVASTATIN] AdvReac Intermediate MYALGIAS Verified 01/31/24 13:34 metronidazole [METRONIDAZOLE] AdvReac Mild FLU LIKE Verified 01/31/24 13:34 SYMPTOMS acyclovir AdvReac Unknown Unknown Verified 01/31/24 13:34 dulaglutide [From Trulicity] AdvReac Unknown dizziness, Verified 01/31/24 13:34 tongue swollen semaglutide [From Ozempic] AdvReac Unknown Dizziness, Verified 01/31/24 13:34 problems remembering Review of Systems Review of Systems: ROS as per [facility]PI [facility] Past Medical History Medical History (Updated 01/31/24 @ 20:43 by Celio Lofton MD) Lymphadenopathy, mediastinal COPD (chronic obstructive pulmonary disease) PAF (paroxysmal atrial fibrillation) Vaginal pain Gait instability Hypertension Intertrigo Obesity (BMI 30-39.9) Bipolar disorder Anemia Allergic rhinitis Acquired hypothyroidism Pure hypercholesterolemia Diabetes mellitus GERD without esophagitis Pain of left lower extremity High bilirubin Hx of strabismus Hx of diabetes insipidus History of vitamin D deficiency Surgical History Hx of colonoscopy History of eye surgery History of left breast biopsy Hx of dilation and curettage Hx of cataract surgery (~07/2017) Family History Family History Father History of cerebral hemorrhage Mother History of cerebral hemorrhage Sister Breast cancer Social History Social History Household Members: Spouse Housing: Apartment Do you presently have visiting nurse or other home services: No Alcohol intake: never Comment: Family bedside Patient Tobacco Use Status: Former Tobacco user Tobacco use type: Cigarette Years Smoked: 20 Smoked in Last 30 Days: No e-Cigarette/Vaping Use: Never Used Second Hand Smoke Exposure: No Advance Directives: Yes Advance Directives on File: Yes Advance Directives Date on File: 08/24/20 Do you have a plan to hurt others: No Plan service: No Current occupational status: retired Cognitive needs: Yes (wheelchair) Hearing needs: No Vision needs: Yes (reading glasses) Physical Exam ED Vital Signs: Vital Signs - 24 hr 01/31/24 13:23 01/31/24 13:37 01/31/24 13:53 Temperature 98.4 F 98.4 F Pulse Rate 67 67 68 Respiratory Rate 16 16 20 Blood Pressure 130/60 130/60 Pulse Oximetry 95 95 Oxygen Delivery Method Non-Rebreather Mask Non-Rebreather Mask Oxygen Flow Rate 14 01/31/24 14:00 01/31/24 17:16 01/31/24 19:39 Temperature 97.9 F 98.2 F Pulse Rate 71 70 68 Respiratory Rate 18 17 17 Blood Pressure 112/61 139/79 Pulse Oximetry 90 L 96 Oxygen Delivery Method Oxymask Oxymask Oxygen Flow Rate 01/31/24 20:11 Temperature Pulse Rate 76 Respiratory Rate 15 Blood Pressure 121/58 L Pulse Oximetry 91 L Oxygen Delivery Method Oxymask Oxygen Flow Rate 4 BMI result Body Mass Index 33.8 Gen: NAD, AOx3 HEENT: NCAT, EOMI, normal conjunctiva CV: RRR, no murmurs appreciated, no pitting edema to lower extremities Pulm: Mildly increased work of breathing at rest, few scattered minimal expiratory wheezes, no rhonchi or rales, no stridor GI: Soft, NTND, no rebound, guarding or rigidity MSK: No asymmetrical calf edema/erythema/tenderness to palpation Neuro: Grossly non focal Medications Administered Discontinued Medications Generic Name Dose Route Start Last Admin Trade Name Freq PRN Reason Stop Dose Admin Acetaminophen 650 mg 01/31/24 18:20 01/31/24 18:42 Acetaminophen 325 Mg Tablet PO 01/31/24 18:21 650 mg ONCE ONE Administration Albuterol Sulfate 2.5 mg/ 5 mg 01/31/24 19:25 01/31/24 19:39 Albuterol Sulfate 2.5 mg INHALE 01/31/24 19:26 5 mg ONCE ONE Administration Albuterol Sulfate 2.5 mg/ 0 mg 01/31/24 13:39 01/31/24 13:52 Albuterol/Ipratropium 3 ml INHALE 01/31/24 13:40 1 dose ONCE ONE Administration Methylprednisolone Sodium Succinate 125 mg 01/31/24 13:48 01/31/24 13:38 Methylprednisolone Sod Succ 125 Mg/2 Ml Vial IVPUSH 01/31/24 13:49 125 mg ONCE ONE Administration Medical Decision Making Medical Decision Making [facility] Narrative: Differential diagnosis includes but is not limited to pulmonary embolism, COPD exacerbation, lung mass, pleural effusion. 1343 - patient arrives and found to have hypoxia to approximate 80% on her baseline 2 liters/minute nasal cannula supplemental oxygen. Given history of malignancy and increasing hypoxia we will obtain CT imaging for evaluation of pulmonary embolism. Patient is afebrile 98.4? F and it is otherwise not tachycardic or hypotensive to suggest sepsis at this time. I do not suspect sepsis. Patient has known right upper lobe lung mass with previous CT findings concerning for metastatic disease. She previously had a right pleural effusion on CT imaging on January 19, 2024. Patient is provided supplemental oxygen via nasal cannula and non-rebreather. We will consult industrial machine system technician for evaluation of noninvasive mechanical ventilation. Patient is DNR/DNI. Low suspicion for acute decompensated CHF given reassuring transthoracic echocardiogram for chart review on 03/28/2022 with LVEF 55-60%, lack of rales and pretibial pitting edema on exam. Given few scattered expiratory wheezes on exam we will provide pulmonary hygiene with DuoNeb and Solu-Medrol this time. I reviewed radiology impression of CT imaging which is negative for pulmonary embolism. There is redemonstrated known paratracheal and right upper lobe lesions. There are small bilateral pleural effusions right greater than left. Patient is provide additional nebulized albuterol treatment while awaiting CT imaging. Patient is admitted to hospitalist for further workup and management. Admission/Observation Consideration of admission/observation: Escalation of care including admission/observation considered Consult Healthcare Provider Management of the patient was discussed with: Hospitalist I discussed case and management with admitting hospitalist Dr. Esqueda Lab Data [facility] Lab Attestation statement: I reviewed the patient's lab results. I reviewed and interpreted patient's labs as below which are noncontributory. I interpreted venous blood gas which is unremarkable and there are no findings of acute hypercarbic respiratory acidosis necessitating noninvasive mechanical ventilation. 01/31/24 13:41 01/31/24 14:41 Labs: Lab Results 01/31/24 01/31/24 01/31/24 Range/Units 13:41 13:46 14:41 WBC 11.9 H (4.8-10.8) X10*3/uL RBC 3.81 L (4.20-5.50) X10*6/uL Hgb 12.5 (12.0-16.0) g/dl Hct 37.1 (37.0-47.0) % MCV 97.4 (80.0-98.0) fL MCH 32.8 (27.0-33.0) pg MCHC 33.7 (31.0-35.0) g/dl RDW 13.2 (11.0-16.0) % Plt Count 163 (160-400) X10*3/uL MPV 9.5 (9.4-12.3) fL Immature Gran % (Auto) 4.2 H (0.0-0.4) % Neut % (Auto) 76.4 H (45-73) % Lymph % (Auto) 8.9 L (20-40) % Schuyler % (Auto) 9.8 (2-11) % Eos % (Auto) 0.5 (0-4) % Baso % (Auto) 0.2 (0-2) % Lymph # (Auto) 1.1 L (1.2-4.9) X10*3/uL Schuyler # (Auto) 1.2 (0.1-1.2) X10*3/uL Eos # (Auto) 0.1 (0.0-0.4) X10*3/uL Baso # (Auto) 0.0 (0.0-0.2) X10*3/uL Abs Immat Gran (auto) 0.50 H (0.00-0.03) X10*3/uL Absolute Neuts (auto) 9.1 H (2.0-8.3) x10*3/uL Absolute Nucleated RBC 0.000 (0.0-0.012) X10*3/uL Nucleated RBC % (auto) 0.0 (0.0-0.2) /100WBC Hold Purple Top SEE NOTE Hold Blue Top SEE NOTE VBG pH 7.46 H (7.32-7.43) VBG pCO2 49 mmHg VBG pO2 79 mmHg VBG HCO3 35 H (22-26) mmol/L VBG O2 Saturation 96.0 % VBG Base Excess 10.6 mmol/L Sodium 135 (135-145) mmol/L Potassium 5.1 (3.3-5.1) mmol/L Chloride 94 L (96-108) mmol/L Carbon Dioxide 31 H (22-29) mmol/L Anion Gap 15 (12-20) BUN 23 H (9-16) mg/dL Creatinine 1.11 (0.5-1.4) mg/dL Estim Creat Clear Calc 53.6 Estimated GFR 48 POC Glucose (60-115) mg/dL Random Glucose 166 H (60-115) mg/dL Calcium 9.3 (8.4-10.2) mg/dL Influenza Type A (PCR) NEGATIVE (Negative) Influenza Type B (PCR) NEGATIVE (Negative) RSV RNA Qual (PCR) NEGATIVE (Negative) SARS-CoV-2 RNA (RT-PCR) NEGATIVE (Negative) 01/31/24 Range/Units 18:47 WBC (4.8-10.8) X10*3/uL RBC (4.20-5.50) X10*6/uL Hgb (12.0-16.0) g/dl Hct (37.0-47.0) % MCV (80.0-98.0) fL MCH (27.0-33.0) pg MCHC (31.0-35.0) g/dl RDW (11.0-16.0) % Plt Count (160-400) X10*3/uL MPV (9.4-12.3) fL Immature Gran % (Auto) (0.0-0.4) % Neut % (Auto) (45-73) % Lymph % (Auto) (20-40) % Schuyler % (Auto) (2-11) % Eos % (Auto) (0-4) % Baso % (Auto) (0-2) % Lymph # (Auto) (1.2-4.9) X10*3/uL Schuyler # (Auto) (0.1-1.2) X10*3/uL Eos # (Auto) (0.0-0.4) X10*3/uL Baso # (Auto) (0.0-0.2) X10*3/uL Abs Immat Gran (auto) (0.00-0.03) X10*3/uL Absolute Neuts (auto) (2.0-8.3) x10*3/uL Absolute Nucleated RBC (0.0-0.012) X10*3/uL Nucleated RBC % (auto) (0.0-0.2) /100WBC Hold Purple Top Hold Blue Top VBG pH (7.32-7.43) VBG pCO2 mmHg VBG pO2 mmHg VBG HCO3 (22-26) mmol/L VBG O2 Saturation % VBG Base Excess mmol/L Sodium (135-145) mmol/L Potassium (3.3-5.1) mmol/L Chloride (96-108) mmol/L Carbon Dioxide (22-29) mmol/L Anion Gap (12-20) BUN (9-16) mg/dL Creatinine (0.5-1.4) mg/dL Estim Creat Clear Calc Estimated GFR POC Glucose 224 H (60-115) mg/dL Random Glucose (60-115) mg/dL Calcium (8.4-10.2) mg/dL Influenza Type A (PCR) (Negative) Influenza Type B (PCR) (Negative) RSV RNA Qual (PCR) (Negative) SARS-CoV-2 RNA (RT-PCR) (Negative) Radiology Impression Discussion of test interpretation with radiology: I have reviewed the radiologist's reading. Radiologist Impression: CT/CT angio chest PE protocol IMPRESSION: No pulmonary embolism. Right paratracheal mediastinal mass measuring up to 4.6 cm, suspicious for metastatic disease given the pulmonary findings, or potentially a primary neoplasm such as lymphoma. Again demonstrated is a 2.7 x 2.6 cm irregularly shaped nodule in the anterior apical right upper lobe. As previously stated on chest CT dated 01/19/2024 this is concerning for malignancy. There is a 1.3 x 1.4 cm nodule along the posterior left lower lobe abutting the pleura, unchanged from prior examination. Small bilateral pleural effusions, right greater than left. VTE: Negative. Dictated By: Lorne Oden Jr, DO Signed By: <Electronically signed by Lorne Oden Jr, DO in OV> 01/31/241999 Critical Care Time Critical Care Time Attestation: Critical Care Time: A total of 45 minutes spent in direct patient care with coordinating critical resuscitation, procedures, reviewing records, discussing with consultants, reviewing labs, and/or managing patient. Discharge Plan Discharge Clinical Impression: Acute hypoxemic respiratory failure Patient Disposition: Admitted As Inpatient Prescriptions: No Action (DME) lancing device with lancets [[employer] DelExpertBeacon Lanc Device] Kit See Rx Instructions .ROUTE .MEDSUPPLY Qty: 1 Rx Instructions: As directed ascorbic acid (vitamin C) [Vitamin C] 500 mg tablet 500 mg PO DAILY Qty: 90 3RF nystatin 100,000 unit/mL suspension 1 ml buccal BID PRN (Reason: oral thrush) 30 Days Qty: 60 3RF Rx Instructions: administer 1/2 of dose in each side of the mouth ferrous fumarate [Ferrocite] 324 mg (106 mg iron) tablet 324 mg PO DAILY Qty: 100 2RF cholecalciferol (vitamin D3) [Vitamin D3] 25 mcg (1,000 unit) tablet 25 mcg PO DAILY Qty: 90 5RF pantoprazole 40 mg tablet,delayed release (DR/EC) 40 mg PO DAILY@0630 Qty: 90 2RF levothyroxine 100 mcg tablet 100 mcg PO DAILY Qty: 90 1RF metoprolol succinate 25 mg tablet extended release 24 hr 25 mg PO DAILY Qty: 90 3RF insulin glargine [Lantus Solostar U-100 Insulin] 100 unit/mL (3 mL) insulin pen 24 unit subcut QPM Qty: 15 4RF gabapentin 100 mg capsule 100 mg PO TID Qty: 90 3RF metformin 500 mg tablet extended release 24 hr 500 mg PO BID Qty: 180 1RF (DME) pen needle, diabetic [BD Flory 2nd Gen Pen Needle] 32 gauge x 5/32 needle See Rx Instructions .ROUTE .COMPLEX Qty: 100 0RF Dose Instruction: DIRECTED INJECTS 4 X/SDAY Rx Instructions: DIRECTED INJECTS 4 X/SDAY oxybutynin chloride 5 mg tablet 5 mg PO BID Qty: 180 1RF atorvastatin 40 mg tablet 40 mg PO BEDTIME nystatin 100,000 unit/gram powder 1 appl topical BID PRN (Reason: rash under breasts) enoxaparin 100 mg/mL Syringe 100 mg subcut Q12H Qty: 10 0RF aripiprazole 5 mg tablet 5 mg PO DAILY Qty: 1 0RF divalproex [Depakote ER] 250 mg tablet extended release 24 hr 250 mg PO BEDTIME Qty: 1 0RF docusate sodium 100 mg Capsule 100 mg PO BID Qty: 1 0RF magnesium hydroxide [Milk of Magnesia] 400 mg/5 mL Suspension 30 ml PO DAILY PRN (Reason: Constipation) Qty: 1 0RF polyethylene glycol 3350 17 gram Powder In Packet 17 g PO BID Qty: 1 0RF Fleet Enema 19-7 gram/118 mL Enema 133 ml OK ONCE PRN (Reason: Constipation) Qty: 1 0RF prednisone 20 mg tablet 20 mg PO DAILY Qty: 2 0RF insulin lispro [Admelog U-100 Insulin lispro] 100 unit/mL Solution 6 unit subcut QIDACHS Qty: 1 0RF insulin lispro [Admelog U-100 Insulin lispro] 100 unit/mL Solution See Protocol subcut QIDACHS Qty: 1 0RF Protocol: Insulin Correction Scale Less than or equal to 110 ---- Give (units): 0 111 to 150 Give (units): 0 151 to 200 Give (units): 2 201 to 250 Give (units): 4 251 to 300 Give (units): 6 301 to 350 Give (units): 10 Greater than 350 Give (units): 12 Call MD if Blood Glucose > : 350 divalproex 500 mg tablet extended release 24 hr 500 mg PO BID Patient Comments: mood stabilizer buspirone 5 mg tablet 5 mg PO BID Patient Comments: for anxiety (DME) pen needle, diabetic [Easy Comfort Pen [place]] 33 gauge x 5/32 needle See Rx Instructions .Route Qty: 100 5RF Rx Instructions: As directed injects 4 X/sday risperidone 2 mg tablet 2 mg PO BID Print Language: Australian
[2024-01-31] MEDS: methylPREDNISolone Sod Succ 125 MG/2 ML VIAL IVPUSH (13:38)
[2024-01-31 13:50] LABS: MANUAL DIFF FLAG NO
[2024-01-31 13:52] LABS: Basophils Percent Auto 0.2 % (0-2); Eosinophils Absolute Auto 0.1 X10*3/uL (0.0-0.4); Eosinophils Percent Auto 0.5 % (0-4); Hematocrit 37.1 % (37.0-47.0); Hemoglobin 12.5 g/dl (12.0-16.0); Imm Gran Pct Auto 4.2 % (0.0-0.4); Lymphocytes Absolute Auto 1.1 X10*3/uL (1.2-4.9); Lymphocytes Percent Auto 8.9 % (20-40); Mean Corpuscular HGB Conc 33.7 g/dl (31.0-35.0); Mean Corpuscular Hemoglobin 32.8 pg (27.0-33.0); Mean Corpuscular Volume 97.4 fL (80.0-98.0); Mean Platelet Volume 9.5 fL (9.4-12.3); Monocytes Absolute Auto 1.2 X10*3/uL (0.1-1.2); Monocytes Percent Auto 9.8 % (2-11); Neutrophils Absolute Auto 9.1 x10*3/uL (2.0-8.3); Neutrophils Percent Auto 76.4 % (45-73); Platelet Count 163 X10*3/uL (160-400); Red Blood Count 3.81 X10*6/uL (4.20-5.50); Red Cell Distribution Width 13.2 % (11.0-16.0); White Blood Count 11.9 X10*3/uL (4.8-10.8)
[2024-01-31] MEDS: Albuterol Sulfate 2.5 MG, Albuterol/Iprat 2.5/0.5MG 3 ML 3 ML INHALE (13:52)
[2024-01-31 14:19] LABS: Venous Blood Gas Refer to POC result
[2024-01-31 14:19] LABS: VBG Base Excess 10.6 mmol/L; VBG HCO3 35 mmol/L (22-26); VBG pCO2 49 mmHg; VBG pH 7.46 (7.32-7.43); VBG pO2 79 mmHg
[2024-01-31 14:32] LABS: Influenza A PCR NEGATIVE (Negative); Influenza B PCR NEGATIVE (Negative); Resp Syncy Virus RNA Qual PCR NEGATIVE (Negative); SARS COV2 PCR INHOUSE NEGATIVE (Negative)
[2024-01-31 16:11] LABS: Anion Gap 15 (12-20); Blood Urea Nitrogen 23 mg/dL (9-16); Calcium 9.3 mg/dL (8.4-10.2); Carbon Dioxide 31 mmol/L (22-29); Chloride 94 mmol/L (96-108); Creatinine Clr Calc Pharmacy 53.6; Estimated Glomerular Filt Rate 48; Glucose Random 166 mg/dL (60-115); Potassium 5.1 mmol/L (3.3-5.1); Sodium 135 mmol/L (135-145)
[2024-01-31] MEDS: Acetaminophen 325 MG TABLET 650 MG PO (18:42)
[2024-01-31 19:01] LABS: Glucose, Whole Blood 224 mg/dL (60-115)
--- NOTE | 2024-01-31 19:06 | MHC.EDTECH ---
check patient on rounds patient had a bowl movement and is on a purewick clean and changed patient nurse aware of patient is incontinent
[2024-01-31] MEDS: Albuterol Sulfate 2.5 MG, Albuterol Sulfate (0.083%) 2.5 MG 5 MG INHALE (19:39)
--- NOTE | 2024-01-31 20:20 | PM.IMHP ---
History of Present Illness Date of Service: 01/31/24 <MICHELE Lanier - Last Filed: 01/31/24 21:59> Attending physician on admission: Urszula Esqueda <MICHELE Lanier - Last Filed: 01/31/24 21:59> Chief Complaint: SOB <MICHELE Lanier - Last Filed: 01/31/24 21:59> Pt is a 78-year-old female with a PMH significant for?paroxysmal AFib on anticoagulation HLD, insulin-dependent type 2 diabetes, hypothyroidism, former tobacco user, likely COPD, recently diagnosed right lung mass, and bipolar disorder who presents to the ED from [facility]?for increasing shortness a breath and acute on chronic hypoxia. Patient was recently admitted to the hospital on 01/19-01/26 where she was treated for acute hypoxemic respiratory failure likely secondary to COPD exacerbation. At that time CT imaging of chest found mass in the right lung with lymphadenopathy, mediastinal mass, and small mass on hepatic dome concerning for metastasis. Patient was seen by pulmonology and Oncology and elected to undergo an EBUS with [facility] outpatient. Patient was discharged to rehab on 2L NC. At SNF patient had been experiencing shortness of breath and increased oxygen demands for the past 2 days. Supplemental O2 was increased to 4L, but staff report they were unable to increase patient's O2 saturation above 84%. Of note, during last admission on 01/19 patient was seen by Psychiatry who deemed patient did not have capacity to make decisions about her management as she was unable to learn and retain new information regarding her present medical condition. Healthcare proxy (pt's daughter) was invoked. Currently patient denies any acute medical complaints, but patient is noted to be somnolent with increased work of breathing and O2 saturation dips into the mid 80s with little movement. Daughter is at bedside and notes patient has had a significant, marked decline since previous admission. Prior to 01/18 patient was able to ambulate on her own with the assistance of a seated walker. However, patient has been bed-bound since last admission and overall more somnolent and less cognitively aware. No reports of cough, fever, or chills. In the ED pt was satting as low as 90% on 5 L OxyMask. Labs were significant for leukocytosis of 11.9 and bicarb 31, otherwise grossly unremarkable. Stable H&H. No significant electrolyte abnormalities. Renal function baseline. Tested negative for flu, RSV, COVID. CTA of chest found no pulmonary embolism, but redemonstrated 2.7 x 2.6 cm irregularly shaped nodule in anterior apical right upper lobe suspicious for malignancy, as well as right paratracheal mediastinal mass measuring up to 4.6 cm suspicious for metastatic disease, and small bilateral pleural effusions with right greater than left. Pt was treated with Solu-Medrol, DuoNebs, and acetaminophen. Pt will be admitted to the hospital for treatment and further evaluation of acute hypoxic respiratory failure in the setting of exacerbation of obstructive lung disease in a patient with likely metastatic lung cancer. <MICHELE Lanier - Last Filed: 01/31/24 21:59> Review of Systems Review of Systems: Unable to obtain due to patient's mentation <MICHELE Lanier - Last Filed: 01/31/24 21:59> [facility] Medical History: Medical History (Updated 01/31/24 @ 21:49 by MICHELE Lanier) Lymphadenopathy, mediastinal COPD (chronic obstructive pulmonary disease) PAF (paroxysmal atrial fibrillation) Vaginal pain Gait instability Hypertension Intertrigo Obesity (BMI 30-39.9) Bipolar disorder Anemia Allergic rhinitis Acquired hypothyroidism Pure hypercholesterolemia Diabetes mellitus GERD without esophagitis Pain of left lower extremity High bilirubin Hx of strabismus Hx of diabetes insipidus History of vitamin D deficiency <MICHELE Lanier - Last Filed: 01/31/24 21:59> Family History: Family History Father History of cerebral hemorrhage Mother History of cerebral hemorrhage Sister Breast cancer <MICHELE Lanier - Last Filed: 01/31/24 21:59> Surgical History: Surgical History Hx of colonoscopy History of eye surgery History of left breast biopsy Hx of dilation and curettage Hx of cataract surgery (~07/2017) <MICHELE Lanier - Last Filed: 01/31/24 21:59> Social History: Social History Household Members: Spouse Housing: Apartment Do you presently have visiting nurse or other home services: No Alcohol intake: never Comment: Family bedside Patient Tobacco Use Status: Former Tobacco user Tobacco use type: Cigarette Years Smoked: 20 Smoked in Last 30 Days: No e-Cigarette/Vaping Use: Never Used Second Hand Smoke Exposure: No Advance Directives: Yes Advance Directives on File: Yes Advance Directives Date on File: 08/24/20 Do you have a plan to hurt others: No Plan service: No Current occupational status: retired Cognitive needs: Yes (wheelchair) Hearing needs: No Vision needs: Yes (reading glasses) <MICHELE Lanier - Last Filed: 01/31/24 21:59> Meds Allergies/Adverse reactions: Allergies Allergy/AdvReac Type Severity Reaction Status Date / Time amoxicillin [Amoxicillin] Allergy Intermediate SWELLING, Verified 01/31/24 13:34 rash Sulfa (Sulfonamide Allergy Intermediate itching & Verified 01/31/24 13:34 Antibiotics) bruising codeine [CODEINE] Allergy Unknown RASH Verified 01/31/24 13:34 dicyclomine Allergy Unknown Unknown Verified 01/31/24 13:34 lidocaine [LIDOCAINE] Allergy Unknown UNKNOWN Verified 01/31/24 13:34 lithium [LITHIUM] AdvReac Severe NEPHROGENIC Verified 01/31/24 13:34 DIABETES INSIPIDUS meclizine [Meclizine] AdvReac Intermediate INCREASES Verified 01/31/24 13:34 DIZZINESS simvastatin [SIMVASTATIN] AdvReac Intermediate MYALGIAS Verified 01/31/24 13:34 metronidazole [METRONIDAZOLE] AdvReac Mild FLU LIKE Verified 01/31/24 13:34 SYMPTOMS acyclovir AdvReac Unknown Unknown Verified 01/31/24 13:34 dulaglutide [From Trulicity] AdvReac Unknown dizziness, Verified 01/31/24 13:34 tongue swollen semaglutide [From Ozempic] AdvReac Unknown Dizziness, Verified 01/31/24 13:34 problems remembering <MICHELE Lanier - Last Filed: 01/31/24 21:59> Home medications: Home Medications ?Medication ?Instructions ?Recorded ?Confirmed ?Last Taken ?Type lancing device with lancets kit #1 ea 05/11/20 12/05/23 Unknown History (ClosetDash Lancing Device kit) buspirone 5 mg tablet 5 mg PO BID anxiety 03/01/22 01/31/24 Unknown History divalproex 500 mg tablet,extended 500 mg PO BID 03/01/22 01/31/24 Unknown History release 24 hr risperidone 2 mg tablet 2 mg PO BID 05/20/23 01/31/24 Unknown History atorvastatin 40 mg tablet 40 mg PO BEDTIME 01/20/24 01/31/24 Unknown History nystatin 100,000 unit/gram topical 1 appl topical BID PRN rash under 01/20/24 01/31/24 Unknown History powder breasts acetaminophen 325 mg tablet 650 mg PO Q4H PRN pin 01/31/24 01/31/24 Unknown History (Tylenol) acetaminophen 650 mg rectal 650 mg NC Q4H PRN Fever Or Pain 01/31/24 01/31/24 Unknown History suppository bisacodyl 10 mg rectal suppository 10 mg NC DAILY PRN Constipation 01/31/24 01/31/24 Unknown History insulin glargine 100 unit/mL (3 24 unit subcut BEDTIME 01/31/24 01/31/24 Unknown History mL) subcutaneous pen (Lantus Solostar U-100 Insulin) levothyroxine 100 mcg tablet 100 mcg PO DAILY@0600 01/31/24 01/31/24 Unknown History lorazepam 0.5 mg tablet 0.5 mg PO Q12H PRN Agitation 01/31/24 01/31/24 Unknown History metoprolol succinate 25 mg 25 mg PO BID 01/31/24 01/31/24 Unknown History tablet,extended release 24 hr naloxone 4 mg/actuation nasal spray 4 mg intranasal Q3M PRN Opiate 01/31/24 01/31/24 Unknown History Reversal sennosides 8.6 mg tablet (senna) 17.2 mg PO BID 01/31/24 01/31/24 Unknown History sodium phosphates 19 gram-7 118 ml NC ONCE PRN Constipation 01/31/24 01/31/24 Unknown History gram/118 mL enema (Fleet Enema) tramadol 50 mg tablet 50 mg PO Q8H PRN Pain 01/31/24 01/31/24 Unknown History <MICHELE Lanier - Last Filed: 01/31/24 21:59> Physical Exam Vital Signs and Narrative: Vital Signs: Last Vital Signs Temp 98.2 F 01/31/24 17:16 Pulse 76 01/31/24 20:11 Resp 15 01/31/24 20:11 BP 121/58 L 01/31/24 20:11 Pulse Ox 91 L 01/31/24 20:11 O2 Del Method Oxymask 01/31/24 20:11 O2 Flow Rate 4 01/31/24 20:11 Oxygen Flow Rate 14 01/31/24 13:23 BMI result Body Mass Index 33.8 <MICHELE Lanier - Last Filed: 01/31/24 21:59> Constitutional: Somnolent but arousable, no acute distress. Mental Status: Oriented to person and partly to time and place, but not to situation. Eyes: Pupils are equal, round, and reactive to light. Ear, Nose, and Throat: Oropharynx clear, mucous membranes moist. Ears and nose without deformities. Trachea midline. Respiratory: Diffuse expiratory wheezing and rhonchi. Some increased work of breathing with accessory muscle use and diaphoretic breathing. Cardiovascular: Regularly irregular rhythm. No murmurs, rubs, or gallops. Gastrointestinal: Abdomen soft, non-tender, non-distended. Normal bowel sounds. Neurologic: Cranial nerves II-XII are grossly intact bilaterally. No focal neurological deficits. Moves all extremities spontaneously. Skin: Warm, dry. Extremities: No edema. <MICHELE Lanier - Last Filed: 01/31/24 21:59> Results Labs CBC and Chem 7: 01/31/24 13:41 01/31/24 14:41 <MICHELE Lanier - Last Filed: 01/31/24 21:59> Labs: Laboratory Results - last 24 hr 01/31/24 01/31/24 01/31/24 13:41 13:46 14:41 MCV 97.4 MCH 32.8 MCHC 33.7 RDW 13.2 Plt Count 163 MPV 9.5 Immature Gran % (Auto) 4.2 H Neut % (Auto) 76.4 H Lymph % (Auto) 8.9 L Jefferson % (Auto) 9.8 Eos % (Auto) 0.5 Baso % (Auto) 0.2 Lymph # (Auto) 1.1 L Jefferson # (Auto) 1.2 Eos # (Auto) 0.1 Baso # (Auto) 0.0 Abs Immat Gran (auto) 0.50 H Absolute Neuts (auto) 9.1 H Absolute Nucleated RBC 0.000 Nucleated RBC % (auto) 0.0 Hold Purple Top SEE NOTE Hold Blue Top SEE NOTE VBG pH 7.46 H VBG pCO2 49 VBG pO2 79 VBG HCO3 35 H VBG O2 Saturation 96.0 VBG Base Excess 10.6 Anion Gap 15 Estim Creat Clear Calc 53.6 Estimated GFR 48 POC Glucose Random Glucose 166 H Calcium 9.3 Influenza Type A (PCR) NEGATIVE Influenza Type B (PCR) NEGATIVE RSV RNA Qual (PCR) NEGATIVE SARS-CoV-2 RNA (RT-PCR) NEGATIVE 01/31/24 18:47 MCV MCH MCHC RDW Plt Count MPV Immature Gran % (Auto) Neut % (Auto) Lymph % (Auto) Jefferson % (Auto) Eos % (Auto) Baso % (Auto) Lymph # (Auto) Jefferson # (Auto) Eos # (Auto) Baso # (Auto) Abs Immat Gran (auto) Absolute Neuts (auto) Absolute Nucleated RBC Nucleated RBC % (auto) Hold Purple Top Hold Blue Top VBG pH VBG pCO2 VBG pO2 VBG HCO3 VBG O2 Saturation VBG Base Excess Anion Gap Estim Creat Clear Calc Estimated GFR POC Glucose 224 H Random Glucose Calcium Influenza Type A (PCR) Influenza Type B (PCR) RSV RNA Qual (PCR) SARS-CoV-2 RNA (RT-PCR) <MICHELE Lanier Last Filed: 01/31/24 21:59> Imaging Radiologist's Impressions: Impressions Chest CTA 01/31/24 16:59 IMPRESSION: No pulmonary embolism. Right paratracheal mediastinal mass measuring up to 4.6 cm, suspicious for metastatic disease given the pulmonary findings, or potentially a primary neoplasm such as lymphoma. Again demonstrated is a 2.7 x 2.6 cm irregularly shaped nodule in the anterior apical right upper lobe. As previously stated on chest CT dated 01/19/2024 this is concerning for malignancy. There is a 1.3 x 1.4 cm nodule along the posterior left lower lobe abutting the pleura, unchanged from prior examination. Small bilateral pleural effusions, right greater than left. VTE: Negative. <MICHELE Lanier Last Filed: 01/31/24 21:59> Assessment and Plan (1) Acute hypoxemic respiratory failure: Status: Acute <MICHELE Lanier Last Filed: 01/31/24 21:59> (2) Obstructive lung disease: Status: Acute <MICHELE Lanier - Last Filed: 01/31/24 21:59> Pt is a 78-year-old female with a PMH significant for?paroxysmal AFib on anticoagulation HLD, insulin-dependent type 2 diabetes, hypothyroidism, former tobacco user, likely COPD, recently diagnosed right lung mass, and bipolar disorder who presents to the ED from [facility]?for increasing shortness a breath and acute on chronic hypoxia. Pt will be admitted to the hospital for treatment and further evaluation of acute hypoxic respiratory failure in the setting of exacerbation of obstructive lung disease in a patient with likely metastatic lung cancer. Acute hypoxic respiratory failure in the setting of exacerbation of obstructive lung disease Likely has underlying COPD in setting of patient with 40+ year pack history Patient desatting into mid 80s despite increasing supplemental O2 to 5L OxyMask Will treat with Solu-Medrol, DuoNebs Titrate supplemental O2 >90, wean as tolerated Monitor respiratory status Leukocytosis Patient with WBCs of 11.9 Likely secondary to steroid use Patient does not meet sepsis criteria No indication pneumonia on imaging, patient without reported cough or fever Will hold off on antibiotics at this time Right lung mass with likely mediastinal and liver metastasis Follow up outpatient with pulmonology Paroxysmal AFib Patient previously on Eliquis which was transitioned to therapeutic Lovenox in anticipation of imminent lung biopsy Daughter/HCP now questions whether or when lung biopsy will be done Continue therapeutic Lovenox for now, though consider switching back to Eliquis depending on when/if lung biopsy will be done Insulin-dependent type 2 diabetes Sliding-scale insulin, Lantus Diabetic diet HLD Continue statin Hypothyroidism Continue levothyroxine Bipolar disorder Continue home mood stabilizers Chronic constipation Patient on significant bowel regimen, continue DNR/DNI Attending:?Dr. Esqueda DVT Prophylaxis: Therapeutic Lovenox Pt will require a hospitalization of at least two nights for treatment of?acute hypoxic respiratory failure in the setting of exacerbation of obstructive lung disease in a patient with likely metastatic lung cancer. Given patient's significant comorbidities and risk for significant decline, she will need treatment with IV steroids, breathing treatments, increased oxygen demands, and close monitoring of respiratory status. <MICHELE Lanier - Last Filed: 01/31/24 21:59> Pt is a 78-year-old female with a PMH significant for?paroxysmal AFib on anticoagulation HLD, insulin-dependent type 2 diabetes, hypothyroidism, former tobacco user, likely COPD, recently diagnosed right lung mass, and bipolar disorder who presents to the ED from [facility]?for increasing shortness a breath and acute on chronic hypoxia. Pt will be admitted to the hospital for treatment and further evaluation of acute hypoxic respiratory failure in the setting of exacerbation of obstructive lung disease in a patient with likely metastatic lung cancer. Acute hypoxic respiratory failure in the setting of exacerbation of obstructive lung disease Likely has underlying COPD in setting of patient with 40+ year pack history Patient desatting into mid 80s despite increasing supplemental O2 to 5L OxyMask Will treat with Solu-Medrol, DuoNebs Titrate supplemental O2 >90, wean as tolerated Monitor respiratory status Leukocytosis Patient with WBCs of 11.9 Likely secondary to steroid use Patient does not meet sepsis criteria No indication pneumonia on imaging, patient without reported cough or fever Will hold off on antibiotics at this time Right lung mass with likely mediastinal and liver metastasis Follow up outpatient with pulmonology and oncology Paroxysmal AFib Patient previously on Eliquis which was transitioned to therapeutic Lovenox in anticipation of imminent lung biopsy Daughter/HCP now questions whether or when lung biopsy will be done Continue therapeutic Lovenox for now, though consider switching back to Eliquis depending on when/if lung biopsy will be done Insulin-dependent type 2 diabetes Sliding-scale insulin, Lantus Diabetic diet HLD Continue statin Hypothyroidism Continue levothyroxine Bipolar disorder Continue home mood stabilizers Chronic constipation Patient on significant bowel regimen, continue DNR/DNI Attending:?Dr. Esqueda DVT Prophylaxis: Therapeutic Lovenox Pt will require a hospitalization of at least two nights for treatment of?acute hypoxic respiratory failure in the setting of exacerbation of obstructive lung disease in a patient with likely metastatic lung cancer. Given patient's significant comorbidities and risk for significant decline, she will need treatment with IV steroids, breathing treatments, increased oxygen demands, and close monitoring of respiratory status. <Urszula Esqueda MD - Last Filed: 01/31/24 23:36> Quality Stroke Does the patient have a stroke diagnosis?: No <MICHELE Lanier - Last Filed: 01/31/24 21:59> VTE Prior VTE?: No <MICHELE Lanier - Last Filed: 01/31/24 21:59> VTE Risk Level:: Medical - moderate - high <MICHELE Lanier - Last Filed: 01/31/24 21:59> VTE Device Contraindication: Treatment Not Indicated <MICHELE Lanier - Last Filed: 01/31/24 21:59> VTE Drug Contraindication: N/A - Med Ordered <MICHELE Lanier - Last Filed: 01/31/24 21:59>
--- NOTE | 2024-01-31 20:56 | PC.NURSE ---
Addendum entered by Viviana Willams 01/31/24 20:59: Pt reports effectiveness to pain med given by previous RN. Original Note: This marketing writer assumed care of this Pt at 1900. Pt A&Ox2, slow to respond. Pt on oxymask, SpO2 91%. Family at bedside.
[2024-01-31 21:09] LABS: Glucose, Whole Blood 267 mg/dL (60-115)
[2024-01-31] MEDS: methylPREDNISolone Sod Succ 40 MG/ML VIAL IVPUSH (21:22)
[2024-01-31] MEDS: Insulin Lispro 100 UNIT/ML 3 ML VIAL SUBCUT (21:23)
--- NOTE | 2024-01-31 21:26 | PHA.MEDREC ---
Addendum entered by Cecile Henson RPh 01/31/24 21:40: reviewed by [facility]. Original Note: Pharmacy Consult ? Medication Reconciliation Pharmacy has completed the medication reconciliation. [facility] to confirm med list.
--- NOTE | 2024-01-31 21:55 | PC.NURSE ---
100mg of Levonox not given. Pharmacy called and changed order.
[2024-01-31] MEDS: Metoprolol Succinate ER 25 MG TAB.ER.24H PO (22:33)
[2024-01-31] MEDS: Divalproex Sodium ER 500 MG TAB.ER.24H PO (22:33)
[2024-01-31] MEDS: Gabapentin 100 MG CAPSULE PO (22:33)
[2024-01-31] MEDS: busPIRone HCl 5 MG TABLET PO (22:33)
[2024-01-31] MEDS: Atorvastatin Calcium 40 MG TABLET PO (22:33)
[2024-01-31] MEDS: Sennosides 8.6 MG TABLET 17.2 MG PO (22:33)
[2024-01-31] MEDS: Docusate Sodium 100 MG CAPSULE PO (22:33)
[2024-01-31] MEDS: Enoxaparin Sodium 100 MG/ML SYRINGE SUBCUT (22:34)
--- NOTE | 2024-01-31 22:49 | PC.NURSE ---
Pt incontinent of urine, incontinent care provided. Report complete, pt will be transported to room 487, Pt and daughter aware of plan.
[2024-01-31 23:22] LABS: Glucose, Whole Blood 403 mg/dL (60-115)
[2024-01-31] MEDS: Insulin Glargine,Hum.rec.anlog 100 UNIT/ML 10 ML VIAL 17 UNIT SUBCUT (23:35)
[2024-01-31] MEDS: risperiDONE 2 MG TABLET PO (23:35)
[2024-01-31] MEDS: Divalproex Sodium ER 250 MG TAB.ER.24H PO (23:35)
[2024-02-01] VITALS (9 sets, daily range): BP systolic 130–155; BP diastolic 66–82; PULSE 61–71; RESP 18–24; TEMP 35.8–36.7; O2SAT 91–97
[2024-02-01] MEDS: 0.9 % Sodium Chloride Flush 3 ML SYRINGE IVFLUSH ×2 (01:18→09:05)
[2024-02-01] MEDS: LORazepam 0.5 MG TABLET PO (01:18)
[2024-02-01] MEDS: Levothyroxine Sodium 100 MCG TABLET PO (05:18)
[2024-02-01] MEDS: Omeprazole 20 MG CAPSULE.DR PO (05:18)
[2024-02-01] MEDS: Albuterol/Iprat 2.5/0.5MG 3 ML AMPUL.NEB INHALE ×4 (07:29→19:42)
[2024-02-01 07:31] LABS: MANUAL DIFF FLAG NO
[2024-02-01 07:36] LABS: Basophils Percent Auto 0.1 % (0-2); Hematocrit 34.9 % (37.0-47.0); Hemoglobin 11.8 g/dl (12.0-16.0); Imm Gran Abs Auto 0.53 X10*3/uL (0.00-0.03); Imm Gran Pct Auto 4.7 % (0.0-0.4); Lymphocytes Absolute Auto 0.9 X10*3/uL (1.2-4.9); Lymphocytes Percent Auto 7.5 % (20-40); Mean Corpuscular HGB Conc 33.8 g/dl (31.0-35.0); Mean Corpuscular Hemoglobin 32.7 pg (27.0-33.0); Mean Corpuscular Volume 96.7 fL (80.0-98.0); Mean Platelet Volume 9.6 fL (9.4-12.3); Monocytes Absolute Auto 0.6 X10*3/uL (0.1-1.2); Monocytes Percent Auto 4.9 % (2-11); Neutrophils Absolute Auto 9.3 x10*3/uL (2.0-8.3); Neutrophils Percent Auto 82.8 % (45-73); Platelet Count 177 X10*3/uL (160-400); Red Blood Count 3.61 X10*6/uL (4.20-5.50); Red Cell Distribution Width 12.9 % (11.0-16.0); White Blood Count 11.3 X10*3/uL (4.8-10.8)
[2024-02-01 07:53] LABS: Anion Gap 16 (12-20); Blood Urea Nitrogen 25 mg/dL (9-16); Calcium 9.3 mg/dL (8.4-10.2); Carbon Dioxide 29 mmol/L (22-29); Chloride 95 mmol/L (96-108); Creatinine Clr Calc Pharmacy 59.4; Estimated Glomerular Filt Rate 54; Glucose Random 305 mg/dL (60-115); Potassium 4.9 mmol/L (3.3-5.1); Sodium 135 mmol/L (135-145)
[2024-02-01 08:15] LABS: Glucose, Whole Blood 269 mg/dL (60-115)
[2024-02-01] MEDS: Cholecalciferol (Vitamin D3) 25 MCG TABLET PO (08:53)
[2024-02-01] MEDS: oxyBUTYnin chloride ER 5 MG TAB.ER.24 PO (08:53)
[2024-02-01] MEDS: Gabapentin 100 MG CAPSULE PO ×2 (08:53→20:28)
[2024-02-01] MEDS: Ascorbic Acid 500 MG TABLET PO (08:53)
[2024-02-01] MEDS: Ferrous Sulfate 324 MG TABLET.DR PO (08:53)
[2024-02-01] MEDS: risperiDONE 2 MG TABLET PO ×2 (08:53→20:27)
[2024-02-01] MEDS: Divalproex Sodium ER 500 MG TAB.ER.24H PO ×2 (08:53→20:28)
[2024-02-01] MEDS: Docusate Sodium 100 MG CAPSULE PO ×2 (08:55→20:28)
[2024-02-01] MEDS: busPIRone HCl 5 MG TABLET PO ×2 (08:55→20:28)
[2024-02-01] MEDS: Metoprolol Succinate ER 25 MG TAB.ER.24H PO ×2 (08:55→20:27)
[2024-02-01] MEDS: methylPREDNISolone Sod Succ 40 MG/ML VIAL IVPUSH ×2 (08:55→12:09)
[2024-02-01] MEDS: ARIPiprazole 5 MG TABLET PO (09:04)
[2024-02-01] MEDS: Insulin Lispro 100 UNIT/ML 3 ML VIAL SUBCUT ×4 (09:06→20:29)
--- NOTE | 2024-02-01 09:56 | HO.PM.IMPN ---
Subjective Subjective Date of Service: 02/01/24 Interval History: still sob but getting better Physical Exam Vital Signs: Vital Signs: Last Vital Signs Temp 97.8 F 02/01/24 07:46 Pulse 61 02/01/24 07:46 Resp 20 02/01/24 08:30 BP 143/82 H 02/01/24 07:46 Pulse Ox 91 L 02/01/24 07:46 O2 Del Method Nasal Cannula, Ox ymask 02/01/24 07:46 O2 Flow Rate 3 02/01/24 07:46 Oxygen Flow Rate 14 01/31/24 13:23 BMI result Body Mass Index 33.8 Appearance: Alert.? Oriented X3.? cvs: rrr, [id number]. res: air entry somewhat diminshed at bases,has mild wheezing b/l. abd: no rebound or guarding ,nt, bs present. ext pulses present , no cyanosis neuro: axo3 , nonfocal. Objective Data Active Medications Acetaminophen (Acetaminophen 325 Mg Tablet) 650 mg PO Q6H PRN PRN Reason: Pain, Mild (Pain Scale 1-3), fever or headache Acetaminophen (Acetaminophen Supp 650 Mg Supp.Rect) 650 mg RI Q4H PRN PRN Reason: Fever Or Pain Albuterol/Ipratropium (Albuterol/Iprat 2.5/0.5mg 3 Ml Ampul.Neb) 3 ml INHALE RQ4H WHILE AWAKE [facility] Last Admin: 02/01/24 07:29 Dose: 3 ml Documented By: KEE Albuterol/Ipratropium (Albuterol/Iprat 2.5/0.5mg 3 Ml Ampul.Neb) 3 ml INHALE Q4H PRN PRN Reason: Wheezing Aripiprazole (Aripiprazole 5 Mg Tablet) 5 mg PO DAILY [facility] Last Admin: 02/01/24 09:04 Dose: 5 mg Documented By: GERSON Ascorbic Acid (Ascorbic Acid 500 Mg Tablet) 500 mg PO DAILY [facility] [place] Last Admin: 02/01/24 08:53 Dose: 500 mg Documented By: GERSON Atorvastatin Calcium (Atorvastatin Calcium 40 Mg Tablet) 40 mg PO BEDTIME [facility] [place] Last Admin: 01/31/24 22:33 Dose: 40 mg Documented By: SERRANX Bisacodyl (Bisacodyl 10 Mg Supp.Rect) 10 mg RI DAILY PRN PRN Reason: Constipation Buspirone HCl (Buspirone Hcl 5 Mg Tablet) 5 mg PO BID [facility] Last Admin: 02/01/24 08:55 Dose: 5 mg Documented By: GERSON Calcium Carbonate (Calcium Carbonate 750 Mg Tab.Chew) 750 mg PO Q4H PRN PRN Reason: Heartburn Divalproex Sodium (Divalproex Sodium Er 250 Mg Tab.Er.24h) 250 mg PO BEDTIME [facility] Last Admin: 01/31/24 23:35 Dose: 250 mg Documented By: FIDEL Divalproex Sodium (Divalproex Sodium Er 500 Mg Tab.Er.24h) 500 mg PO BID [facility] [place] Last Admin: 02/01/24 08:53 Dose: 500 mg Documented By: GERSON Docusate Sodium (Docusate Sodium 100 Mg Capsule) 100 mg PO BID [facility] [place] Last Admin: 02/01/24 08:55 Dose: 100 mg Documented By: GERSON Enoxaparin Sodium (Enoxaparin Sodium 100 Mg/Ml Syringe) 100 mg SUBCUT Q12H [facility] Last Admin: 01/31/24 22:34 Dose: 100 mg Documented By: LOWELL Ferrous Sulfate (Ferrous Sulfate 324 Mg Tablet.Dr) 324 mg PO DAILY [facility] Last Admin: 02/01/24 08:53 Dose: 324 mg Documented By: GERSON Gabapentin (Gabapentin 100 Mg Capsule) 100 mg PO TID [facility] Last Admin: 02/01/24 08:53 Dose: 100 mg Documented By: GERSON Glucose (Glucose Gel 15 Gm Gel..Gram.) 15 gm PO Q15M PRN; Protocol PRN Reason: per Hypoglycemia Standing Ord. Dextrose (D10) 250 mls @ 750 mls/hr IV Q15M PRN; Protocol PRN Reason: per Hypoglycemia Standing Ord. Insulin Glargine (Insulin Glargine,Hum.Rec.Anlog 100 Unit/Ml 10 Ml Vial) 17 unit SUBCUT BEDTIME [facility] Last Admin: 01/31/24 23:35 Dose: 17 unit Documented By: FIDEL Insulin Human Lispro (Insulin Lispro 100 Unit/Ml 3 Ml Vial) 0 unit SUBCUT QIDACHS [facility]; Protocol Last Admin: 02/01/24 09:06 Dose: 6 unit Documented By: GERSON Levothyroxine Sodium (Levothyroxine Sodium 100 Mcg Tablet) 100 mcg PO DAILY@0600 [facility] [place] Last Admin: 02/01/24 05:18 Dose: 100 mcg Documented By: FIDEL Lorazepam (Lorazepam 0.5 Mg Tablet) 0.5 mg PO Q12H PRN PRN Reason: Agitation Last Admin: 02/01/24 01:18 Dose: 0.5 mg Documented By: FIDEL Magnesium Hydroxide (Milk Of Magnesia 30 Ml Oral.Susp) 30 ml PO DAILY PRN PRN Reason: Constipation Magnesium Hydroxide (Milk Of Magnesia 30 Ml Oral.Susp) 30 ml PO DAILY PRN PRN Reason: Constipation Melatonin (Melatonin 3 Mg Tablet) 6 mg PO BEDTIME PRN PRN Reason: Insomnia Methylprednisolone Sodium Succinate (Methylprednisolone Sod Succ 40 Mg/Ml Vial) 40 mg IVPUSH Q12H [facility] Last Admin: 02/01/24 08:55 Dose: 40 mg Documented By: GERSON Metoprolol Succinate (Metoprolol Succinate Er 25 Mg Tab.Er.24h) 25 mg PO BID [facility] [place]; Protocol Last Admin: 02/01/24 08:55 Dose: 25 mg Documented By: GERSON Omeprazole (Omeprazole 20 Mg Capsule.Dr) 20 mg PO DAILY@0630 [facility] [place] Last Admin: 02/01/24 05:18 Dose: 20 mg Documented By: FIDEL Ondansetron HCl (Ondansetron Hcl 4 Mg/2 Ml Vial) 4 mg IVPUSH Q8H PRN PRN Reason: Nausea and Vomiting Oxybutynin Chloride (Oxybutynin Chloride Er 5 Mg Tab.Er.24) 5 mg PO DAILY [facility] Last Admin: 02/01/24 08:53 Dose: 5 mg Documented By: GERSON Polyethylene Glycol (Polyethylene Glycol 3350 17 Gm Powd.Pack) 17 gm PO BID [facility] Last Admin: 02/01/24 09:08 Dose: Not Given Documented By: GERSON Non-Admin Reason: Patient Refused Risperidone (Risperidone 2 Mg Tablet) 2 mg PO BID [facility] [place] Last Admin: 02/01/24 08:53 Dose: 2 mg Documented By: GERSON Senna (Sennosides 8.6 Mg Tablet) 17.2 mg PO BID [facility] [place] Last Admin: 02/01/24 09:03 Dose: Not Given Documented By: GERSON Non-Admin Reason: Patient Refused Sodium Chloride (0.9 % Sodium Chloride Flush 3 Ml Syringe) 3 ml IVFLUSH QSHIFT [facility] [place] Last Admin: 02/01/24 09:05 Dose: 3 ml Documented By: GERSON Tramadol HCl (Tramadol Hcl 50 Mg Tablet) 50 mg PO Q8H PRN PRN Reason: Pain, Moderate(Pain Scale 4-6) Vitamin D (Cholecalciferol (Vitamin D3) 25 Mcg Tablet) 25 mcg PO DAILY [facility] [place] Last Admin: 02/01/24 08:53 Dose: 25 mcg Documented By: GERSON Labs 02/01/24 07:10 02/01/24 05:00 Labs: Laboratory Results - last 24 hr 01/31/24 01/31/24 01/31/24 13:41 13:46 14:41 MCV 97.4 MCH 32.8 MCHC 33.7 RDW 13.2 Plt Count 163 MPV 9.5 Immature Gran % (Auto) 4.2 H Neut % (Auto) 76.4 H Lymph % (Auto) 8.9 L [place] % (Auto) 9.8 Eos % (Auto) 0.5 Baso % (Auto) 0.2 Lymph # (Auto) 1.1 L [place] # (Auto) 1.2 Eos # (Auto) 0.1 Baso # (Auto) 0.0 Abs Immat Gran (auto) 0.50 H Absolute Neuts (auto) 9.1 H Absolute Nucleated RBC 0.000 Nucleated RBC % (auto) 0.0 Hold Purple Top SEE NOTE Hold Blue Top SEE NOTE VBG pH 7.46 H VBG pCO2 49 VBG pO2 79 VBG HCO3 35 H VBG O2 Saturation 96.0 VBG Base Excess 10.6 Anion Gap 15 Estim Creat Clear Calc 53.6 Estimated GFR 48 POC Glucose Random Glucose 166 H Calcium 9.3 Influenza Type A (PCR) NEGATIVE Influenza Type B (PCR) NEGATIVE RSV RNA Qual (PCR) NEGATIVE SARS-CoV-2 RNA (RT-PCR) NEGATIVE 01/31/24 01/31/24 01/31/24 18:47 21:05 23:16 MCV MCH MCHC RDW Plt Count MPV Immature Gran % (Auto) Neut % (Auto) Lymph % (Auto) [place] % (Auto) Eos % (Auto) Baso % (Auto) Lymph # (Auto) [place] # (Auto) Eos # (Auto) Baso # (Auto) Abs Immat Gran (auto) Absolute Neuts (auto) Absolute Nucleated RBC Nucleated RBC % (auto) Hold Purple Top Hold Blue Top VBG pH VBG pCO2 VBG pO2 VBG HCO3 VBG O2 Saturation VBG Base Excess Anion Gap Estim Creat Clear Calc Estimated GFR POC Glucose 224 H 267 H 403 H* Random Glucose Calcium Influenza Type A (PCR) Influenza Type B (PCR) RSV RNA Qual (PCR) SARS-CoV-2 RNA (RT-PCR) 02/01/24 02/01/24 02/01/24 05:00 07:10 08:10 MCV 96.7 MCH 32.7 MCHC 33.8 RDW 12.9 Plt Count 177 MPV 9.6 Immature Gran % (Auto) 4.7 H Neut % (Auto) 82.8 H Lymph % (Auto) 7.5 L [place] % (Auto) 4.9 Eos % (Auto) 0.0 Baso % (Auto) 0.1 Lymph # (Auto) 0.9 L [place] # (Auto) 0.6 Eos # (Auto) 0.0 Baso # (Auto) 0.0 Abs Immat Gran (auto) 0.53 H Absolute Neuts (auto) 9.3 H Absolute Nucleated RBC 0.000 Nucleated RBC % (auto) 0.0 Hold Purple Top Hold Blue Top VBG pH VBG pCO2 VBG pO2 VBG HCO3 VBG O2 Saturation VBG Base Excess Anion Gap 16 Estim Creat Clear Calc 59.4 Estimated GFR 54 POC Glucose 269 H Random Glucose 305 H Calcium 9.3 Influenza Type A (PCR) Influenza Type B (PCR) RSV RNA Qual (PCR) SARS-CoV-2 RNA (RT-PCR) Assessment and Plan (1) COPD exacerbation: Status: Acute Plan 78F PMH new lung mass, copd, pafib, hld, dm, hypothryoid, bipolar, presented with sob acute hypoxic respiraotry failure due to copd with acute decompensation continue solumedrol, nebs, weaning o2, currently 89% on 3L new right lung mass likely mediastinal and liver mets plan for outpatient EBUS, petct pafib eliquis being held for eventual biopsy, continue lovenox 1mg/kg bid toprol dm insulin bipolar depakote hypothyroid synthroid hld statin dvt prophylaxis on eliquis dnr/dni reason for continued hospitalization: hypoxia, sob Quality Stroke Does the patient have a stroke diagnosis?: No VTE Prior VTE?: No VTE Risk Level:: Medical - moderate - high VTE Device Contraindication: Treatment Not Indicated VTE Drug Contraindication: N/A - Med Ordered
[2024-02-01] MEDS: Enoxaparin Sodium 100 MG/ML SYRINGE SUBCUT ×2 (10:29→20:25)
[2024-02-01 12:02] LABS: Glucose, Whole Blood 302 mg/dL (60-115)
--- NOTE | 2024-02-01 15:06 | MHC.CM.PN ---
IMM 02/01/24 Patient discharged to [facility] 01/28/24 returns to [facility] with Dyspnea. Patient lives with her spouse. [facility] provides [employer] services M-F. Meet with patient and her son Xavi. He had some concerns about [facility] staffing. He stated that [facility] is the 1st choice at discharge. A referral has been sent to the facility. Xavi stated that the plan has been to schedule a PET scan. The test would determine if there is a need for biopsy. DP return to [facility] via BLS
[2024-02-01 16:44] LABS: Glucose, Whole Blood 357 mg/dL (60-115)
[2024-02-01 20:02] LABS: Glucose, Whole Blood 347 mg/dL (60-115)
[2024-02-01] MEDS: Atorvastatin Calcium 40 MG TABLET PO (20:28)
[2024-02-01] MEDS: Divalproex Sodium ER 250 MG TAB.ER.24H PO (20:28)
[2024-02-01] MEDS: Sennosides 8.6 MG TABLET 17.2 MG PO (20:29)
[2024-02-01] MEDS: Insulin Glargine,Hum.rec.anlog 100 UNIT/ML 10 ML VIAL 17 UNIT SUBCUT (20:29)
[2024-02-02] VITALS (8 sets, daily range): BP systolic 116–137; BP diastolic 53–68; PULSE 65–75; RESP 16–20; TEMP 36.1–36.4; O2SAT 91–95
[2024-02-02] MEDS: 0.9 % Sodium Chloride Flush 3 ML SYRINGE IVFLUSH ×3 (05:46→20:59)
[2024-02-02] MEDS: Omeprazole 20 MG CAPSULE.DR PO (05:48)
[2024-02-02] MEDS: Levothyroxine Sodium 100 MCG TABLET PO (05:48)
[2024-02-02 07:18] LABS: Hematocrit 36.7 % (37.0-47.0); Hemoglobin 12.1 g/dl (12.0-16.0); Mean Corpuscular Hemoglobin 32.5 pg (27.0-33.0); Mean Corpuscular Volume 98.7 fL (80.0-98.0); Mean Platelet Volume 9.3 fL (9.4-12.3); Platelet Count 198 X10*3/uL (160-400); Red Blood Count 3.72 X10*6/uL (4.20-5.50); Red Cell Distribution Width 13.2 % (11.0-16.0); White Blood Count 16.2 X10*3/uL (4.8-10.8)
[2024-02-02 07:31] LABS: Anion Gap 16 (12-20); Blood Urea Nitrogen 29 mg/dL (9-16); Calcium 9.7 mg/dL (8.4-10.2); Carbon Dioxide 29 mmol/L (22-29); Chloride 98 mmol/L (96-108); Creatinine Clr Calc Pharmacy 50.7; Estimated Glomerular Filt Rate 45; Glucose Fasting 205 mg/dL (60-99); Potassium 4.2 mmol/L (3.3-5.1); Sodium 139 mmol/L (135-145)
[2024-02-02 08:08] LABS: Glucose, Whole Blood 195 mg/dL (60-115)
[2024-02-02] MEDS: ARIPiprazole 5 MG TABLET PO (08:32)
[2024-02-02] MEDS: methylPREDNISolone Sod Succ 40 MG/ML VIAL IVPUSH ×2 (08:32→20:55)
[2024-02-02] MEDS: Insulin Lispro 100 UNIT/ML 3 ML VIAL SUBCUT ×7 (08:32→20:55)
[2024-02-02] MEDS: oxyBUTYnin chloride ER 5 MG TAB.ER.24 PO (08:32)
[2024-02-02] MEDS: Docusate Sodium 100 MG CAPSULE PO ×2 (08:32→20:50)
[2024-02-02] MEDS: Divalproex Sodium ER 500 MG TAB.ER.24H PO ×2 (08:35→20:50)
[2024-02-02] MEDS: Gabapentin 100 MG CAPSULE PO ×2 (08:35→20:49)
[2024-02-02] MEDS: Metoprolol Succinate ER 25 MG TAB.ER.24H PO ×2 (08:35→20:49)
[2024-02-02] MEDS: Ascorbic Acid 500 MG TABLET PO (08:35)
[2024-02-02] MEDS: Enoxaparin Sodium 100 MG/ML SYRINGE SUBCUT ×2 (08:35→20:55)
[2024-02-02] MEDS: risperiDONE 2 MG TABLET PO ×2 (08:35→20:50)
[2024-02-02] MEDS: Ferrous Sulfate 324 MG TABLET.DR PO (08:35)
[2024-02-02] MEDS: Cholecalciferol (Vitamin D3) 25 MCG TABLET PO (08:35)
[2024-02-02] MEDS: busPIRone HCl 5 MG TABLET PO ×2 (08:35→20:50)
[2024-02-02] MEDS: Albuterol/Iprat 2.5/0.5MG 3 ML AMPUL.NEB INHALE ×4 (08:56→19:18)
[2024-02-02 11:37] LABS: Glucose, Whole Blood 375 mg/dL (60-115)
--- NOTE | 2024-02-02 11:52 | HO.PM.IMPN ---
Subjective Subjective Date of Service: 02/02/24 Interval History: Pt somnolent but arousable Pt has no acute complaints, but not a reliable historian Noted to have increased work of breathing, possible moments of apnea while sleeping Family and HCP is at bedside who do not wish to pursue biopsy and would like to consider hospice Physical Exam Vital Signs: Vital Signs: Last Vital Signs Temp 97 F 02/02/24 07:40 Pulse 67 02/02/24 11:35 Resp 16 02/02/24 11:35 BP 116/53 L 02/02/24 07:40 Pulse Ox 92 02/02/24 07:40 O2 Del Method Nasal Cannula 02/02/24 07:40 O2 Flow Rate 3 02/02/24 07:40 Oxygen Flow Rate 14 01/31/24 13:23 BMI result Body Mass Index 33.8 General: AOx2, not oriented to time or situation. Somnolent but arousable. In no acute distress Resp: Some increased work of breathing. Mild diffuse bilateral wheezing. CVS: S1, S2, RRR GI: +BS, NT, no distention Skin: Warm, dry Neuro: Cranial nerves II-XII grossly intact bilaterally. Motor grossly intact bilaterally Extremities: No edema Psych: Pleasantly confused. Objective Data Active Medications Acetaminophen (Acetaminophen 325 Mg Tablet) 650 mg PO Q6H PRN PRN Reason: Pain, Mild (Pain Scale 1-3), fever or headache Acetaminophen (Acetaminophen Supp 650 Mg Supp.Rect) 650 mg ME Q4H PRN PRN Reason: Fever Or Pain Albuterol/Ipratropium (Albuterol/Iprat 2.5/0.5mg 3 Ml Ampul.Neb) 3 ml INHALE RQ4H WHILE AWAKE [facility] Last Admin: 02/02/24 11:33 Dose: 3 ml Documented By: KEE Albuterol/Ipratropium (Albuterol/Iprat 2.5/0.5mg 3 Ml Ampul.Neb) 3 ml INHALE Q4H PRN PRN Reason: Wheezing Aripiprazole (Aripiprazole 5 Mg Tablet) 5 mg PO DAILY [facility] Last Admin: 02/02/24 08:32 Dose: 5 mg Documented By: GERSON Ascorbic Acid (Ascorbic Acid 500 Mg Tablet) 500 mg PO DAILY [facility] Last Admin: 02/02/24 08:35 Dose: 500 mg Documented By: GERSON Atorvastatin Calcium (Atorvastatin Calcium 40 Mg Tablet) 40 mg PO BEDTIME [facility] Last Admin: 02/01/24 20:28 Dose: 40 mg Documented By: TABBY Bisacodyl (Bisacodyl 10 Mg Supp.Rect) 10 mg ME DAILY PRN PRN Reason: Constipation Buspirone HCl (Buspirone Hcl 5 Mg Tablet) 5 mg PO BID [facility] Last Admin: 02/02/24 08:35 Dose: 5 mg Documented By: GERSON Calcium Carbonate (Calcium Carbonate 750 Mg Tab.Chew) 750 mg PO Q4H PRN PRN Reason: Heartburn Divalproex Sodium (Divalproex Sodium Er 250 Mg Tab.Er.24h) 250 mg PO BEDTIME [facility] Last Admin: 02/01/24 20:28 Dose: 250 mg Documented By: TABBY Divalproex Sodium (Divalproex Sodium Er 500 Mg Tab.Er.24h) 500 mg PO BID [facility] Last Admin: 02/02/24 08:35 Dose: 500 mg Documented By: GERSON Docusate Sodium (Docusate Sodium 100 Mg Capsule) 100 mg PO BID [facility] Last Admin: 02/02/24 08:32 Dose: 100 mg Documented By: GERSON Enoxaparin Sodium (Enoxaparin Sodium 100 Mg/Ml Syringe) 100 mg SUBCUT Q12H [facility] Last Admin: 02/02/24 08:35 Dose: 100 mg Documented By: GERSON Ferrous Sulfate (Ferrous Sulfate 324 Mg Tablet.Dr) 324 mg PO DAILY [facility] Last Admin: 02/02/24 08:35 Dose: 324 mg Documented By: GERSON Gabapentin (Gabapentin 100 Mg Capsule) 100 mg PO TID [facility] Last Admin: 02/02/24 08:35 Dose: 100 mg Documented By: GERSON Glucose (Glucose Gel 15 Gm Gel..Gram.) 15 gm PO Q15M PRN; Protocol PRN Reason: per Hypoglycemia Standing Ord. Dextrose (D10) 250 mls @ 750 mls/hr IV Q15M PRN; Protocol PRN Reason: per Hypoglycemia Standing Ord. Insulin Glargine (Insulin Glargine,Hum.Rec.Anlog 100 Unit/Ml 10 Ml Vial) 21 unit SUBCUT BEDTIME [facility] Insulin Human Lispro (Insulin Lispro 100 Unit/Ml 3 Ml Vial) 0 unit SUBCUT QIDACHS [facility]; Protocol Last Admin: 02/02/24 08:32 Dose: 2 unit Documented By: GERSON Insulin Human Lispro (Insulin Lispro 100 Unit/Ml 3 Ml Vial) 5 unit SUBCUT QIDACHS [facility] Levothyroxine Sodium (Levothyroxine Sodium 100 Mcg Tablet) 100 mcg PO DAILY@0600 [facility] Last Admin: 02/02/24 05:48 Dose: 100 mcg Documented By: YAYA Lorazepam (Lorazepam 0.5 Mg Tablet) 0.5 mg PO Q12H PRN PRN Reason: Agitation Last Admin: 02/01/24 01:18 Dose: 0.5 mg Documented By: FIDEL Magnesium Hydroxide (Milk Of Magnesia 30 Ml Oral.Susp) 30 ml PO DAILY PRN PRN Reason: Constipation Magnesium Hydroxide (Milk Of Magnesia 30 Ml Oral.Susp) 30 ml PO DAILY PRN PRN Reason: Constipation Melatonin (Melatonin 3 Mg Tablet) 6 mg PO BEDTIME PRN PRN Reason: Insomnia Methylprednisolone Sodium Succinate (Methylprednisolone Sod Succ 40 Mg/Ml Vial) 40 mg IVPUSH Q12H [facility] Last Admin: 02/02/24 08:32 Dose: 40 mg Documented By: GERSON Metoprolol Succinate (Metoprolol Succinate Er 25 Mg Tab.Er.24h) 25 mg PO BID [facility]; Protocol Last Admin: 02/02/24 08:35 Dose: 25 mg Documented By: GERSON Nystatin (Nystatin Powder 15 Gm Bottle) 1 appl TOPICAL BID [facility]; Protocol Omeprazole (Omeprazole 20 Mg Capsule.) 20 mg PO DAILY@0630 [facility] Last Admin: 02/02/24 05:48 Dose: 20 mg Documented By: YAYA Ondansetron HCl (Ondansetron Hcl 4 Mg/2 Ml Vial) 4 mg IVPUSH Q8H PRN PRN Reason: Nausea and Vomiting Oxybutynin Chloride (Oxybutynin Chloride Er 5 Mg Tab.Er.24) 5 mg PO DAILY [facility] Last Admin: 02/02/24 08:32 Dose: 5 mg Documented By: GERSON Polyethylene Glycol (Polyethylene Glycol 3350 17 Gm Powd.Pack) 17 gm PO BID [facility] Last Admin: 02/02/24 08:47 Dose: Not Given Documented By: GERSON Non-Admin Reason: Patient Refused Risperidone (Risperidone 2 Mg Tablet) 2 mg PO BID [facility] Last Admin: 02/02/24 08:35 Dose: 2 mg Documented By: GERSON Senna (Sennosides 8.6 Mg Tablet) 17.2 mg PO BID [facility] Last Admin: 02/02/24 08:47 Dose: Not Given Documented By: GERSON Non-Admin Reason: Patient Refused Sodium Chloride (0.9 % Sodium Chloride Flush 3 Ml Syringe) 3 ml IVFLUSH QSHIFT [facility] Last Admin: 02/02/24 08:49 Dose: 3 ml Documented By: GERSON Tramadol HCl (Tramadol Hcl 50 Mg Tablet) 50 mg PO Q8H PRN PRN Reason: Pain, Moderate(Pain Scale 4-6) Vitamin D (Cholecalciferol (Vitamin D3) 25 Mcg Tablet) 25 mcg PO DAILY [facility] Last Admin: 02/02/24 08:35 Dose: 25 mcg Documented By: GERSON Labs 02/02/24 07:08 02/02/24 07:08 Labs: Laboratory Results - last 24 hr 02/01/24 02/01/24 02/01/24 11:06 16:40 19:58 MCV MCH MCHC RDW Plt Count MPV Absolute Nucleated RBC Nucleated RBC % (auto) Anion Gap Estim Creat Clear Calc Estimated GFR POC Glucose 302 H 357 H* 347 H Fasting Glucose Calcium 02/02/24 02/02/24 02/02/24 07:08 07:43 11:33 MCV 98.7 H MCH 32.5 MCHC 33.0 RDW 13.2 Plt Count 198 MPV 9.3 L Absolute Nucleated RBC 0.000 Nucleated RBC % (auto) 0.0 Anion Gap 16 Estim Creat Clear Calc 50.7 Estimated GFR 45 POC Glucose 195 H 375 H* Fasting Glucose 205 H Calcium 9.7 Assessment and Plan (1) COPD exacerbation: Status: Acute (2) Acute hypoxemic respiratory failure: Status: Acute Plan Pt is a 78-year-old female with a PMH significant for?paroxysmal AFib on anticoagulation HLD, insulin-dependent type 2 diabetes, hypothyroidism, former tobacco user, likely COPD, recently diagnosed right lung mass, and bipolar disorder who presents to the ED from [facility]?for increasing shortness a breath and acute on chronic hypoxia. Was admitted to the hospital for treatment and further evaluation of acute hypoxic respiratory failure in the setting of exacerbation of obstructive lung disease in a patient with likely metastatic lung cancer. Acute hypoxic respiratory failure in the setting of COPD with acute exacerbation Continue Solu-Medrol, DuoNebs Titrate supplemental O2 with goal of 90-92, currently 91 on 3L NC New right lung mass With likely mediastinal and liver metastasis Any additional imaging or workup -- EBUS, PET scan -- to be done outpatient However, pt's family/HCP likely not going to pursue biopsy Hospice consult Paroxysmal AFib Patient previously on Eliquis which was transitioned to therapeutic Lovenox in anticipation of imminent lung biopsy Daughter/HCP now questions whether or when lung biopsy will be done Continue therapeutic Lovenox for now, though consider switching back to Eliquis depending on when/if lung biopsy will be done Insulin-dependent type 2 diabetes Sliding-scale insulin, Lantus Diabetic diet HLD Continue statin Hypothyroidism Continue levothyroxine Bipolar disorder Continue home mood stabilizers Chronic constipation Patient on significant bowel regimen, continue DNR/DNI Attending:?Dr. Contreras DVT Prophylaxis: Therapeutic Lovenox Pt will require continued hospitalization due to hypoxia, SOB, hospice consideration. Quality Stroke Does the patient have a stroke diagnosis?: No VTE Prior VTE?: No VTE Risk Level:: Medical - moderate - high VTE Device Contraindication: Treatment Not Indicated VTE Drug Contraindication: N/A - Med Ordered
[2024-02-02] MEDS: Nystatin Powder 15 GM BOTTLE 1 APPL TOPICAL ×2 (13:52→20:59)
[2024-02-02] MEDS: Acetaminophen 325 MG TABLET 650 MG PO (15:37)
[2024-02-02 16:10] LABS: Glucose, Whole Blood 387 mg/dL (60-115)
[2024-02-02 20:06] LABS: Glucose, Whole Blood 328 mg/dL (60-115)
[2024-02-02] MEDS: Atorvastatin Calcium 40 MG TABLET PO (20:49)
[2024-02-02] MEDS: Sennosides 8.6 MG TABLET 17.2 MG PO (20:50)
[2024-02-02] MEDS: Divalproex Sodium ER 250 MG TAB.ER.24H PO (20:50)
[2024-02-02] MEDS: Insulin Glargine,Hum.rec.anlog 100 UNIT/ML 10 ML VIAL 21 UNIT SUBCUT (20:56)
[2024-02-03] VITALS (10 sets, daily range): BP systolic 121–142; BP diastolic 59–70; PULSE 64–72; RESP 15–20; TEMP 36.3–36.4; O2SAT 89–94
[2024-02-03] MEDS: LORazepam 0.5 MG TABLET PO (01:42)
[2024-02-03 05:23] LABS: CDiff Gene PCR NEGATIVE (Negative)
[2024-02-03] MEDS: Levothyroxine Sodium 100 MCG TABLET PO (05:53)
[2024-02-03] MEDS: Omeprazole 20 MG CAPSULE.DR PO (05:53)
--- NOTE | 2024-02-03 07:29 | P.PNIM_ITS ---
Subjective Subjective Date of Service: 02/03/24 Interval History: Patient seen and evaluated at bedside, where she is resting comfortably eating her breakfast As normal, patient has no acute medical complaints, though states she just wants to go home. Is pleasantly confused. Patient appears much more awake and interactive, less somnolent Breathing appears much better, no diaphoretic breathing Yesterday patient was noted to have multiple episodes of green colored diarrhea One episode of diarrhea last night Stool studies pending, C diff negative Physical Exam 2 Vital Signs: Vital Signs: Last Vital Signs Temp 97.6 F 02/03/24 04:00 Pulse 66 02/03/24 04:00 Resp 20 02/03/24 04:00 BP 138/66 02/03/24 04:00 Pulse Ox 93 02/03/24 04:00 O2 Del Method Nasal Cannula 02/03/24 04:00 O2 Flow Rate 3 02/03/24 04:00 Oxygen Flow Rate 14 01/31/24 13:23 BMI result Body Mass Index 33.8 General: AOx1, no acute distress Resp: CTA bilaterally CVS: S1, S2, RRR GI: +BS, NT, no distention Skin: Warm, dry Neuro: Cranial nerves II-XII grossly intact bilaterally. Motor grossly intact bilaterally Extremities: No edema Psych: Appropriate affect Objective Data Active Medications Acetaminophen (Acetaminophen 325 Mg Tablet) 650 mg PO Q6H PRN PRN Reason: Pain, Mild (Pain Scale 1-3), fever or headache Last Admin: 02/02/24 15:37 Dose: 650 mg Documented By: GERSON Acetaminophen (Acetaminophen Supp 650 Mg Supp.Rect) 650 mg MD Q4H PRN PRN Reason: Fever Or Pain Albuterol/Ipratropium (Albuterol/Iprat 2.5/0.5mg 3 Ml Ampul.Neb) 3 ml INHALE RQ4H WHILE AWAKE [facility] Last Admin: 02/02/24 19:18 Dose: 3 ml Documented By: MORGAN Albuterol/Ipratropium (Albuterol/Iprat 2.5/0.5mg 3 Ml Ampul.Neb) 3 ml INHALE Q4H PRN PRN Reason: Wheezing Aripiprazole (Aripiprazole 5 Mg Tablet) 5 mg PO DAILY [facility] Last Admin: 02/02/24 08:32 Dose: 5 mg Documented By: GERSON Ascorbic Acid (Ascorbic Acid 500 Mg Tablet) 500 mg PO DAILY [facility] Last Admin: 02/02/24 08:35 Dose: 500 mg Documented By: GERSON Atorvastatin Calcium (Atorvastatin Calcium 40 Mg Tablet) 40 mg PO BEDTIME [facility] Last Admin: 02/02/24 20:49 Dose: 40 mg Documented By: CASTILLO Bisacodyl (Bisacodyl 10 Mg Supp.Rect) 10 mg MD DAILY PRN PRN Reason: Constipation Buspirone HCl (Buspirone Hcl 5 Mg Tablet) 5 mg PO BID [facility] Last Admin: 02/02/24 20:50 Dose: 5 mg Documented By: CASTILLO Calcium Carbonate (Calcium Carbonate 750 Mg Tab.Chew) 750 mg PO Q4H PRN PRN Reason: Heartburn Divalproex Sodium (Divalproex Sodium Er 250 Mg Tab.Er.24h) 250 mg PO BEDTIME [facility] Last Admin: 02/02/24 20:50 Dose: 250 mg Documented By: CASTILLO Divalproex Sodium (Divalproex Sodium Er 500 Mg Tab.Er.24h) 500 mg PO BID [facility] Last Admin: 02/02/24 20:50 Dose: 500 mg Documented By: CASTILLO Docusate Sodium (Docusate Sodium 100 Mg Capsule) 100 mg PO BID [facility] Last Admin: 02/02/24 20:50 Dose: 100 mg Documented By: CASTILLO Enoxaparin Sodium (Enoxaparin Sodium 100 Mg/Ml Syringe) 100 mg SUBCUT Q12H [facility] Last Admin: 02/02/24 20:55 Dose: 100 mg Documented By: CASTILLO Ferrous Sulfate (Ferrous Sulfate 324 Mg Tablet.Dr) 324 mg PO DAILY [facility] Last Admin: 02/02/24 08:35 Dose: 324 mg Documented By: GERSON Gabapentin (Gabapentin 100 Mg Capsule) 100 mg PO TID [facility] Last Admin: 02/02/24 20:49 Dose: 100 mg Documented By: CASTILLO Glucose (Glucose Gel 15 Gm Gel..Gram.) 15 gm PO Q15M PRN; Protocol PRN Reason: per Hypoglycemia Standing Ord. Dextrose (D10) 250 mls @ 750 mls/hr IV Q15M PRN; Protocol PRN Reason: per Hypoglycemia Standing Ord. Insulin Glargine (Insulin Glargine,Hum.Rec.Anlog 100 Unit/Ml 10 Ml Vial) 24 unit SUBCUT BEDTIME [facility] Insulin Human Lispro (Insulin Lispro 100 Unit/Ml 3 Ml Vial) 0 unit SUBCUT QIDACHS [facility]; Protocol Last Admin: 02/02/24 20:55 Dose: 8 unit Documented By: CASTILLO Insulin Human Lispro (Insulin Lispro 100 Unit/Ml 3 Ml Vial) 5 unit SUBCUT QIDACHS [facility] Last Admin: 02/02/24 20:55 Dose: 5 unit Documented By: CASTILLO Levothyroxine Sodium (Levothyroxine Sodium 100 Mcg Tablet) 100 mcg PO DAILY@0600 [facility] Last Admin: 02/03/24 05:53 Dose: 100 mcg Documented By: CASTILLO Lorazepam (Lorazepam 0.5 Mg Tablet) 0.5 mg PO Q12H PRN PRN Reason: Agitation Last Admin: 02/03/24 01:42 Dose: 0.5 mg Documented By: CASTILLO Magnesium Hydroxide (Milk Of Magnesia 30 Ml Oral.Susp) 30 ml PO DAILY PRN PRN Reason: Constipation Magnesium Hydroxide (Milk Of Magnesia 30 Ml Oral.Susp) 30 ml PO DAILY PRN PRN Reason: Constipation Melatonin (Melatonin 3 Mg Tablet) 6 mg PO BEDTIME PRN PRN Reason: Insomnia Methylprednisolone Sodium Succinate (Methylprednisolone Sod Succ 40 Mg/Ml Vial) 40 mg IVPUSH Q12H [facility] Last Admin: 02/02/24 20:55 Dose: 40 mg Documented By: CASTILLO Metoprolol Succinate (Metoprolol Succinate Er 25 Mg Tab.Er.24h) 25 mg PO BID [facility]; Protocol Last Admin: 02/02/24 20:49 Dose: 25 mg Documented By: CASTILLO Nystatin (Nystatin Powder 15 Gm Bottle) 1 appl TOPICAL BID [facility]; Protocol Last Admin: 02/02/24 20:59 Dose: 1 appl Documented By: CASTILLO Omeprazole (Omeprazole 20 Mg Capsule.Dr) 20 mg PO DAILY@0630 [facility] Last Admin: 02/03/24 05:53 Dose: 20 mg Documented By: CASTILLO Ondansetron HCl (Ondansetron Hcl 4 Mg/2 Ml Vial) 4 mg IVPUSH Q8H PRN PRN Reason: Nausea and Vomiting Oxybutynin Chloride (Oxybutynin Chloride Er 5 Mg Tab.Er.24) 5 mg PO DAILY [facility] Last Admin: 02/02/24 08:32 Dose: 5 mg Documented By: GERSON Polyethylene Glycol (Polyethylene Glycol 3350 17 Gm Powd.Pack) 17 gm PO BID [facility] Last Admin: 02/02/24 20:59 Dose: Not Given Documented By: CASTILLO Non-Admin Reason: Patient Refused Risperidone (Risperidone 2 Mg Tablet) 2 mg PO BID [facility] Last Admin: 02/02/24 20:50 Dose: 2 mg Documented By: CASTILLO Senna (Sennosides 8.6 Mg Tablet) 17.2 mg PO BID [facility] Last Admin: 02/02/24 20:50 Dose: 17.2 mg Documented By: CASTILLO Sodium Chloride (0.9 % Sodium Chloride Flush 3 Ml Syringe) 3 ml IVFLUSH QSHIFT [facility] Last Admin: 02/02/24 20:59 Dose: 3 ml Documented By: CASTILLO Tramadol HCl (Tramadol Hcl 50 Mg Tablet) 50 mg PO Q8H PRN PRN Reason: Pain, Moderate(Pain Scale 4-6) Vitamin D (Cholecalciferol (Vitamin D3) 25 Mcg Tablet) 25 mcg PO DAILY [facility] Last Admin: 02/02/24 08:35 Dose: 25 mcg Documented By: GERSON Labs 02/02/24 07:08 02/02/24 07:08 Labs: Laboratory Results - last 24 hr 02/02/24 02/02/24 02/02/24 07:08 07:43 11:33 Anion Gap 16 Estim Creat Clear Calc 50.7 Estimated GFR 45 POC Glucose 195 H 375 H* Fasting Glucose 205 H Calcium 9.7 C. difficile Tox B Gene 02/02/24 02/02/24 02/03/24 16:05 20:01 04:32 Anion Gap Estim Creat Clear Calc Estimated GFR POC Glucose 387 H* 328 H Fasting Glucose Calcium C. difficile Tox B Gene NEGATIVE Assessment and Plan (1) COPD exacerbation: Status: Acute Plan Pt is a 78-year-old female with a PMH significant for?paroxysmal AFib on anticoagulation HLD, insulin-dependent type 2 diabetes, hypothyroidism, former tobacco user, likely COPD, recently diagnosed right lung mass, and bipolar disorder who presents to the ED from [facility]?for increasing shortness a breath and acute on chronic hypoxia. Was admitted to the hospital for treatment and further evaluation of acute hypoxic respiratory failure in the setting of exacerbation of obstructive lung disease in a patient with likely metastatic lung cancer. Acute hypoxic respiratory failure in the setting of COPD with acute exacerbation Continue DuoNebs Will switch Solu-Medrol to prednisone 40 mg p.o. daily Titrate supplemental O2 with goal of 90-92, currently 91 on 3L NC New right lung mass With likely mediastinal and liver metastasis Any additional imaging or workup -- EBUS, PET scan -- to be done outpatient However, pt's family/HCP likely not going to pursue biopsy Hospice consult Diarrhea Pt with multiple episodes of diarrhea while in the hospital Last episode last night Stool panels negative, C diff negative Will hold bowel regimen Check BMP in the morning Paroxysmal AFib Patient previously on Eliquis which was transitioned to therapeutic Lovenox in anticipation of imminent lung biopsy Daughter/HCP now questions whether or when lung biopsy will be done Continue therapeutic Lovenox for now, though consider switching back to Eliquis depending on when/if lung biopsy will be done Insulin-dependent type 2 diabetes Sliding-scale insulin, Lantus Diabetic diet HLD Continue statin Hypothyroidism Continue levothyroxine Bipolar disorder Continue home mood stabilizers Chronic constipation Patient on significant bowel regimen, continue DNR/DNI Attending:?Dr. Contreras DVT Prophylaxis: Therapeutic Lovenox Pt will require continued hospitalization due to hypoxia, SOB, hospice consideration. Quality Stroke Does the patient have a stroke diagnosis?: No VTE Prior VTE?: No VTE Risk Level:: Medical - moderate - high VTE Device Contraindication: Treatment Not Indicated VTE Drug Contraindication: N/A - Med Ordered
[2024-02-03 07:44] LABS: Glucose, Whole Blood 294 mg/dL (60-115)
[2024-02-03] MEDS: Albuterol/Iprat 2.5/0.5MG 3 ML AMPUL.NEB INHALE ×4 (08:17→19:54)
[2024-02-03] MEDS: Insulin Lispro 100 UNIT/ML 3 ML VIAL SUBCUT ×5 (09:50→22:20)
[2024-02-03] MEDS: 0.9 % Sodium Chloride Flush 3 ML SYRINGE IVFLUSH ×3 (09:53→20:38)
[2024-02-03] MEDS: methylPREDNISolone Sod Succ 40 MG/ML VIAL IVPUSH (09:55)
[2024-02-03] MEDS: oxyBUTYnin chloride ER 5 MG TAB.ER.24 PO (10:02)
[2024-02-03] MEDS: Ferrous Sulfate 324 MG TABLET.DR PO (10:02)
[2024-02-03] MEDS: busPIRone HCl 5 MG TABLET PO ×2 (10:04→20:38)
[2024-02-03] MEDS: Ascorbic Acid 500 MG TABLET PO (10:04)
[2024-02-03] MEDS: Gabapentin 100 MG CAPSULE PO ×2 (10:04→20:37)
[2024-02-03] MEDS: ARIPiprazole 5 MG TABLET PO (10:05)
[2024-02-03] MEDS: Cholecalciferol (Vitamin D3) 25 MCG TABLET PO (10:05)
[2024-02-03] MEDS: risperiDONE 2 MG TABLET PO ×2 (10:06→20:38)
[2024-02-03] MEDS: Divalproex Sodium ER 500 MG TAB.ER.24H PO ×2 (10:09→20:36)
[2024-02-03] MEDS: Metoprolol Succinate ER 25 MG TAB.ER.24H PO ×2 (10:10→20:37)
[2024-02-03] MEDS: Nystatin Powder 15 GM BOTTLE 1 APPL TOPICAL ×2 (10:15→20:42)
[2024-02-03 11:23] LABS: Glucose, Whole Blood 375 mg/dL (60-115)
[2024-02-03] MEDS: Enoxaparin Sodium 100 MG/ML SYRINGE SUBCUT ×2 (11:35→22:21)
[2024-02-03 11:58] LABS: Adenovirus F 40/41 Not Detected (Not Detect.); Astrovirus Not Detected (Not Detect.); Campylobacter Not Detected (Not Detect.); Cryptosporidium Not Detected (Not Detect.); Cyclospora cayetanensis Not Detected (Not Detect.); E. coli EAEC Not Detected (Not Detect.); E. coli EPEC Not Detected (Not Detect.); E. coli ETEC Not Detected (Not Detect.); E. coli STEC Not Detected (Not Detect.); Entamoeba histolytica Not Detected (Not Detect.); Giardia lamblia Not Detected (Not Detect.); Norovirus GI/GII Not Detected (Not Detect.); Plesiomonas shigelloides Not Detected (Not Detect.); Rotavirus A Not Detected (Not Detect.); Salmonella Not Detected (Not Detect.); Sapovirus Not Detected (Not Detect.); Shigella sp./EIEC Not Detected (Not Detect.); Vibrio Not Detected (Not Detect.); Vibrio Cholerae Not Detected (Not Detect.); Yersinia enterocolitica Not Detected (Not Detect.)
[2024-02-03 13:42] LABS: Glucose, Whole Blood 397 mg/dL (60-115)
[2024-02-03] MEDS: Insulin Lispro 100 UNIT/ML 3 ML VIAL 6 UNIT SUBCUT ×3 (14:36→22:21)
--- NOTE | 2024-02-03 15:32 | MHC.CM.PN ---
imformational requested from hospice /hvns
[2024-02-03 16:07] LABS: Glucose, Whole Blood 365 mg/dL (60-115)
[2024-02-03 20:35] LABS: Glucose, Whole Blood 338 mg/dL (60-115)
[2024-02-03] MEDS: Divalproex Sodium ER 250 MG TAB.ER.24H PO (20:36)
[2024-02-03] MEDS: Atorvastatin Calcium 40 MG TABLET PO (20:37)
[2024-02-03] MEDS: Insulin Glargine,Hum.rec.anlog 100 UNIT/ML 10 ML VIAL 30 UNIT SUBCUT (22:20)
[2024-02-04] VITALS (8 sets, daily range): BP systolic 111–126; BP diastolic 56–62; PULSE 63–70; RESP 16–18; TEMP 36–36.6; O2SAT 89–94
[2024-02-04] MEDS: Omeprazole 20 MG CAPSULE.DR PO (06:16)
[2024-02-04] MEDS: Levothyroxine Sodium 100 MCG TABLET PO (06:16)
[2024-02-04 06:56] LABS: Anion Gap 16 (12-20); Blood Urea Nitrogen 28 mg/dL (9-16); Calcium 9.9 mg/dL (8.4-10.2); Carbon Dioxide 30 mmol/L (22-29); Chloride 98 mmol/L (96-108); Estimated Glomerular Filt Rate 49; Glucose Random 114 mg/dL (60-115); Potassium 4.1 mmol/L (3.3-5.1); Sodium 140 mmol/L (135-145)
[2024-02-04 07:33] LABS: Glucose, Whole Blood 127 mg/dL (60-115)
[2024-02-04] MEDS: Albuterol/Iprat 2.5/0.5MG 3 ML AMPUL.NEB INHALE ×3 (08:34→19:55)
[2024-02-04] MEDS: Gabapentin 100 MG CAPSULE PO ×2 (09:19→14:38)
[2024-02-04] MEDS: oxyBUTYnin chloride ER 5 MG TAB.ER.24 PO (09:19)
[2024-02-04] MEDS: predniSONE 20 MG TABLET 40 MG PO (09:19)
[2024-02-04] MEDS: Metoprolol Succinate ER 25 MG TAB.ER.24H PO (09:19)
[2024-02-04] MEDS: busPIRone HCl 5 MG TABLET PO (09:20)
[2024-02-04] MEDS: risperiDONE 2 MG TABLET PO (09:20)
[2024-02-04] MEDS: Ferrous Sulfate 324 MG TABLET.DR PO (09:20)
[2024-02-04] MEDS: Ascorbic Acid 500 MG TABLET PO (09:20)
[2024-02-04] MEDS: Cholecalciferol (Vitamin D3) 25 MCG TABLET PO (09:20)
[2024-02-04] MEDS: Enoxaparin Sodium 100 MG/ML SYRINGE SUBCUT ×2 (09:20→22:11)
[2024-02-04] MEDS: Divalproex Sodium ER 500 MG TAB.ER.24H PO (09:20)
[2024-02-04] MEDS: ARIPiprazole 5 MG TABLET PO (09:20)
[2024-02-04] MEDS: 0.9 % Sodium Chloride Flush 3 ML SYRINGE IVFLUSH ×3 (09:21→20:48)
[2024-02-04] MEDS: Nystatin Powder 15 GM BOTTLE 1 APPL TOPICAL ×2 (09:21→20:49)
[2024-02-04 11:17] LABS: Glucose, Whole Blood 291 mg/dL (60-115)
[2024-02-04] MEDS: Insulin Lispro 100 UNIT/ML 3 ML VIAL SUBCUT ×3 (11:56→20:46)
[2024-02-04] MEDS: Insulin Lispro 100 UNIT/ML 3 ML VIAL 6 UNIT SUBCUT ×3 (11:56→20:46)
--- NOTE | 2024-02-04 13:49 | MHC.CM.PN ---
met with pts 3 children and we discussed the choice of pt going to a [place] [facility] and the room and board cost that family would be responsible for ,discussed applying for [employer] which could be initiated here and then the proces could be continued while [place] and when approved then hospice could be put in place ,a referral was made to [facility] also asked that we have one family member as a electronic engineering draftsperson they chose [facility] who is dgter and hcp [phone] family requested additonal referrals be made as [facility] is not theur first choice ..i was explined to all family members that if pt is dcd and [facility] is the only accepting facility then the bed at [facility] would need to be utilized this worker asker dr ruano to re see family as rosalvay had questions about dc date and pet scan being scheduled
--- NOTE | 2024-02-04 14:37 | HO.PM.IMPN ---
Subjective Subjective Date of Service: 02/04/24 Interval History: copd ,lung mass Review of Systems sob improving diarrhae somewhat improving Physical Exam Vital Signs: Vital Signs: Last Vital Signs Temp 96.8 F 02/04/24 07:16 Pulse 69 02/04/24 08:35 Resp 18 02/04/24 08:35 BP 111/56 L 02/04/24 07:16 Pulse Ox 94 02/04/24 07:16 O2 Del Method Nasal Cannula 02/04/24 07:16 O2 Flow Rate 3 02/04/24 07:16 Oxygen Flow Rate 14 01/31/24 13:23 BMI result Body Mass Index 33.8 General: awake ,alert simialr to yesterday Resp: CTA bilaterally CVS: S1, S2, RRR GI: +BS, NT, no distention Skin: Warm, dry Neuro: Cranial nerves II-XII grossly intact bilaterally. Motor grossly intact bilaterally Extremities: No edema Psych: Appropriate affect Objective Data Active Medications Acetaminophen (Acetaminophen 325 Mg Tablet) 650 mg PO Q6H PRN PRN Reason: Pain, Mild (Pain Scale 1-3), fever or headache Last Admin: 02/02/24 15:37 Dose: 650 mg Documented By: GERSON Acetaminophen (Acetaminophen Supp 650 Mg Supp.Rect) 650 mg [place] Q4H PRN PRN Reason: Fever Or Pain Albuterol/Ipratropium (Albuterol/Iprat 2.5/0.5mg 3 Ml Ampul.Neb) 3 ml INHALE RQ4H WHILE AWAKE [facility] Last Admin: 02/04/24 11:33 Dose: Not Given Documented By: JERI Non-Admin Reason: Patient Refused Albuterol/Ipratropium (Albuterol/Iprat 2.5/0.5mg 3 Ml Ampul.Neb) 3 ml INHALE Q4H PRN PRN Reason: Wheezing Aripiprazole (Aripiprazole 5 Mg Tablet) 5 mg PO DAILY [facility] Last Admin: 02/04/24 09:20 Dose: 5 mg Documented By: COY Ascorbic Acid (Ascorbic Acid 500 Mg Tablet) 500 mg PO DAILY [facility] Last Admin: 02/04/24 09:20 Dose: 500 mg Documented By: COY Atorvastatin Calcium (Atorvastatin Calcium 40 Mg Tablet) 40 mg PO BEDTIME [facility] Last Admin: 02/03/24 20:37 Dose: 40 mg Documented By: MAXIMINO Bisacodyl (Bisacodyl 10 Mg Supp.Rect) 10 mg [place] DAILY PRN PRN Reason: Constipation Buspirone HCl (Buspirone Hcl 5 Mg Tablet) 5 mg PO BID [facility] Last Admin: 02/04/24 09:20 Dose: 5 mg Documented By: COY Calcium Carbonate (Calcium Carbonate 750 Mg Tab.Chew) 750 mg PO Q4H PRN PRN Reason: Heartburn Divalproex Sodium (Divalproex Sodium Er 250 Mg Tab.Er.24h) 250 mg PO BEDTIME [facility] Last Admin: 02/03/24 20:36 Dose: 250 mg Documented By: MAXIMINO Divalproex Sodium (Divalproex Sodium Er 500 Mg Tab.Er.24h) 500 mg PO BID [facility] Last Admin: 02/04/24 09:20 Dose: 500 mg Documented By: COY Docusate Sodium (Docusate Sodium 100 Mg Capsule) 100 mg PO BID [facility] Last Admin: 02/03/24 10:06 Dose: Not Given Documented By: HARVEY Non-Admin Reason: pt has diarrhea Enoxaparin Sodium (Enoxaparin Sodium 100 Mg/Ml Syringe) 100 mg SUBCUT Q12H [facility] Last Admin: 02/04/24 09:20 Dose: 100 mg Documented By: COY Ferrous Sulfate (Ferrous Sulfate 324 Mg Tablet.Dr) 324 mg PO DAILY [facility] Last Admin: 02/04/24 09:20 Dose: 324 mg Documented By: COY Gabapentin (Gabapentin 100 Mg Capsule) 100 mg PO TID [facility] Last Admin: 02/04/24 09:19 Dose: 100 mg Documented By: COY Glucose (Glucose Gel 15 Gm Gel..Gram.) 15 gm PO Q15M PRN; Protocol PRN Reason: per Hypoglycemia Standing Ord. Dextrose (D10) 250 mls @ 750 mls/hr IV Q15M PRN; Protocol PRN Reason: per Hypoglycemia Standing Ord. Insulin Glargine (Insulin Glargine,Hum.Rec.Anlog 100 Unit/Ml 10 Ml Vial) 30 unit SUBCUT BEDTIME [facility] Last Admin: 02/03/24 22:20 Dose: 30 unit Documented By: MAXIMINO Insulin Human Lispro (Insulin Lispro 100 Unit/Ml 3 Ml Vial) 0 unit SUBCUT QIDAS [facility]; Protocol Last Admin: 02/04/24 11:56 Dose: 6 unit Documented By: YAKELIN Insulin Human Lispro (Insulin Lispro 100 Unit/Ml 3 Ml Vial) 6 unit SUBCUT QIDAS [facility] Last Admin: 02/04/24 11:56 Dose: 6 unit Documented By: YAKELIN Levothyroxine Sodium (Levothyroxine Sodium 100 Mcg Tablet) 100 mcg PO DAILY@0600 [facility] Last Admin: 02/04/24 06:16 Dose: 100 mcg Documented By: MAXIMINO Lorazepam (Lorazepam 0.5 Mg Tablet) 0.5 mg PO Q12H PRN PRN Reason: Agitation Last Admin: 02/03/24 01:42 Dose: 0.5 mg Documented By: CASTILLO Magnesium Hydroxide (Milk Of Magnesia 30 Ml Oral.Susp) 30 ml PO DAILY PRN PRN Reason: Constipation Magnesium Hydroxide (Milk Of Magnesia 30 Ml Oral.Susp) 30 ml PO DAILY PRN PRN Reason: Constipation Melatonin (Melatonin 3 Mg Tablet) 6 mg PO BEDTIME PRN PRN Reason: Insomnia Metoprolol Succinate (Metoprolol Succinate Er 25 Mg Tab.Er.24h) 25 mg PO BID [facility]; Protocol Last Admin: 02/04/24 09:19 Dose: 25 mg Documented By: COY Nystatin (Nystatin Powder 15 Gm Bottle) 1 appl TOPICAL BID [facility]; Protocol Last Admin: 02/04/24 09:21 Dose: 1 appl Documented By: COY Omeprazole (Omeprazole 20 Mg Capsule.) 20 mg PO DAILY@0630 [facility] Last Admin: 02/04/24 06:16 Dose: 20 mg Documented By: MAXIMINO Ondansetron HCl (Ondansetron Hcl 4 Mg/2 Ml Vial) 4 mg IVPUSH Q8H PRN PRN Reason: Nausea and Vomiting Oxybutynin Chloride (Oxybutynin Chloride Er 5 Mg Tab.Er.24) 5 mg PO DAILY [facility] Last Admin: 02/04/24 09:19 Dose: 5 mg Documented By: COY Polyethylene Glycol (Polyethylene Glycol 3350 17 Gm Powd.Pack) 17 gm PO BID [facility] Last Admin: 02/04/24 09:20 Dose: Not Given Documented By: COY Non-Admin Reason: loose stoolsa Prednisone (Prednisone 20 Mg Tablet) 40 mg PO DAILY [facility] Last Admin: 02/04/24 09:19 Dose: 40 mg Documented By: COY Risperidone (Risperidone 2 Mg Tablet) 2 mg PO BID [facility] Last Admin: 02/04/24 09:20 Dose: 2 mg Documented By: COY Senna (Sennosides 8.6 Mg Tablet) 17.2 mg PO BID [facility] Last Admin: 02/03/24 10:04 Dose: Not Given Documented By: HARVEY Non-Admin Reason: pt has diarrhea Simethicone (Simethicone 80 Mg Tab.Chew) 80 mg PO QIDWMHS PRN PRN Reason: Gas Sodium Chloride (0.9 % Sodium Chloride Flush 3 Ml Syringe) 3 ml IVFLUSH QSHIFT [facility] Last Admin: 02/04/24 09:21 Dose: 3 ml Documented By: COY Tramadol HCl (Tramadol Hcl 50 Mg Tablet) 50 mg PO Q8H PRN PRN Reason: Pain, Moderate(Pain Scale 4-6) Vitamin D (Cholecalciferol (Vitamin D3) 25 Mcg Tablet) 25 mcg PO DAILY [facility] Last Admin: 02/04/24 09:20 Dose: 25 mcg Documented By: COY Labs 02/02/24 07:08 02/04/24 05:33 Labs: Laboratory Results - last 24 hr 02/03/24 02/03/24 02/04/24 16:03 20:14 05:33 Anion Gap 16 Estim Creat Clear Calc 55.0 Estimated GFR 49 POC Glucose 365 H* 338 H Random Glucose 114 Calcium 9.9 02/04/24 02/04/24 07:18 11:08 Anion Gap Estim Creat Clear Calc Estimated GFR POC Glucose 127 H 291 H Random Glucose Calcium Assessment and Plan (1) COPD exacerbation: Status: Acute Plan Pt is a 78-year-old female with a PMH significant for?paroxysmal AFib on anticoagulation HLD, insulin-dependent type 2 diabetes, hypothyroidism, former tobacco user, likely COPD, recently diagnosed right lung mass, and bipolar disorder who presents to the ED from [facility]?for increasing shortness a breath and acute on chronic hypoxia. Was admitted to the hospital for treatment and further evaluation of acute hypoxic respiratory failure in the setting of exacerbation of obstructive lung disease in a patient with likely metastatic lung cancer. Acute hypoxic respiratory failure in the setting of COPD with acute exacerbation Continue DuoNebs Will switch Solu-Medrol to prednisone 40 mg p.o. daily Titrate supplemental O2 with goal of 94 on 3L [place] New right lung mass With likely mediastinal and liver metastasis Any additional imaging or workup -- EBUS, PET scan -- to be done outpatient However, pt's family/HCP likely not going to pursue biopsy Hospice consult Diarrhea Pt with multiple episodes of diarrhea while in the hospital Last episode last night Stool panels negative, C diff negative Will hold bowel regimen Check BMP in the morning Paroxysmal AFib Patient previously on Eliquis which was transitioned to therapeutic Lovenox in anticipation of imminent lung biopsy Daughter/HCP now questions whether or when lung biopsy will be done Continue therapeutic Lovenox for now, though consider switching back to Eliquis depending on when/if lung biopsy will be done Insulin-dependent type 2 diabetes Sliding-scale insulin, Lantus Diabetic diet HLD Continue statin Hypothyroidism Continue levothyroxine Bipolar disorder Continue home mood stabilizers Chronic constipation Patient on significant bowel regimen, continue DNR/DNI Attending:?Dr. Contreras DVT Prophylaxis: Therapeutic Lovenox Pt will require continued hospitalization due to hypoxia, SOB, hospice consideration. Quality Stroke Does the patient have a stroke diagnosis?: No VTE Prior VTE?: No VTE Risk Level:: Medical - moderate - high VTE Device Contraindication: Treatment Not Indicated VTE Drug Contraindication: N/A - Med Ordered
--- NOTE | 2024-02-04 14:52 | MHC.CM.PN ---
met with pt who reports that she lives alone has no servies her dgter will transport her home when she is dcd
[2024-02-04 16:39] LABS: Glucose, Whole Blood 374 mg/dL (60-115)
[2024-02-04 19:59] LABS: Glucose, Whole Blood 386 mg/dL (60-115)
[2024-02-04] MEDS: Insulin Glargine,Hum.rec.anlog 100 UNIT/ML 10 ML VIAL 30 UNIT SUBCUT (20:45)
[2024-02-05] VITALS (9 sets, daily range): BP systolic 114–146; BP diastolic 60–71; PULSE 65–91; RESP 16–20; TEMP 36.1–36.7; O2SAT 66–96
[2024-02-05] MEDS: Omeprazole 20 MG CAPSULE.DR PO (05:49)
[2024-02-05] MEDS: Levothyroxine Sodium 100 MCG TABLET PO (05:49)
[2024-02-05 07:09] LABS: Glucose, Whole Blood 163 mg/dL (60-115)
[2024-02-05] MEDS: Albuterol/Iprat 2.5/0.5MG 3 ML AMPUL.NEB INHALE ×3 (08:15→19:40)
[2024-02-05] MEDS: Insulin Lispro 100 UNIT/ML 3 ML VIAL SUBCUT ×4 (09:03→21:15)
--- NOTE | 2024-02-05 09:03 | MHC.CM.PN ---
PTS PRESENT AT BEDSIDE, STATES THE FAMILY HAVE MORE QUESTIONS ABOUT HOSPICE, ASKED THIS CM TO CALL AND SPEAK TO BRUCE FREEMAN TO ARRANGE A FAMILY MEETING. THIS CM CALLED AND SPOKE TO BRUCE FREEMAN, SHE ASKED IF THIS CM WOULD MEET WITH THEM THIS AFTERNOON AT 3:30PM TO DISCUSS DISCHARGE PLANNING/HOSPICE. PLAN IS TO MEET WITH THE FAMILY IN PTS ROOM TODAY AT 3:30PM.
[2024-02-05] MEDS: oxyBUTYnin chloride ER 5 MG TAB.ER.24 PO (09:04)
[2024-02-05] MEDS: Insulin Lispro 100 UNIT/ML 3 ML VIAL 6 UNIT SUBCUT ×4 (09:04→21:16)
[2024-02-05] MEDS: Metoprolol Succinate ER 25 MG TAB.ER.24H PO ×2 (09:05→21:20)
[2024-02-05] MEDS: risperiDONE 2 MG TABLET PO ×2 (09:05→21:20)
[2024-02-05] MEDS: ARIPiprazole 5 MG TABLET PO (09:05)
[2024-02-05] MEDS: Cholecalciferol (Vitamin D3) 25 MCG TABLET PO (09:05)
[2024-02-05] MEDS: Ascorbic Acid 500 MG TABLET PO (09:07)
[2024-02-05] MEDS: predniSONE 20 MG TABLET 40 MG PO (09:07)
[2024-02-05] MEDS: Divalproex Sodium ER 500 MG TAB.ER.24H PO ×2 (09:07→21:21)
[2024-02-05] MEDS: Ferrous Sulfate 324 MG TABLET.DR PO (09:07)
[2024-02-05] MEDS: Enoxaparin Sodium 100 MG/ML SYRINGE SUBCUT ×2 (09:07→21:19)
[2024-02-05] MEDS: busPIRone HCl 5 MG TABLET PO ×2 (09:07→21:20)
[2024-02-05] MEDS: Gabapentin 100 MG CAPSULE PO ×2 (09:07→21:22)
[2024-02-05] MEDS: 0.9 % Sodium Chloride Flush 3 ML SYRINGE IVFLUSH ×2 (09:09→16:23)
[2024-02-05] MEDS: Nystatin Powder 15 GM BOTTLE 1 APPL TOPICAL ×2 (09:18→22:20)
[2024-02-05 11:08] LABS: Glucose, Whole Blood 293 mg/dL (60-115)
--- NOTE | 2024-02-05 15:38 | HO.PM.IMPN ---
Subjective Subjective Date of Service: 02/05/24 Interval History: copd ,lung mass Review of Systems sob improving diarrhae somewhat improving Physical Exam Vital Signs: Vital Signs: Last Vital Signs Temp 98.1 F 02/05/24 07:04 Pulse 91 02/05/24 14:54 Resp 16 02/05/24 14:54 BP 132/66 02/05/24 09:05 Pulse Ox 96 02/05/24 07:04 O2 Del Method Nasal Cannula 02/05/24 07:04 O2 Flow Rate 2.5 02/05/24 07:04 Oxygen Flow Rate 14 01/31/24 13:23 BMI result Body Mass Index 33.8 General: awake ,alert simialr to yesterday Resp: CTA bilaterally CVS: S1, S2, RRR GI: +BS, NT, no distention Skin: Warm, dry Neuro: Cranial nerves II-XII grossly intact bilaterally. Motor grossly intact bilaterally Extremities: No edema Psych: Appropriate affect Objective Data Active Medications Acetaminophen (Acetaminophen 325 Mg Tablet) 650 mg PO Q6H PRN PRN Reason: Pain, Mild (Pain Scale 1-3), fever or headache Last Admin: 02/02/24 15:37 Dose: 650 mg Documented By: GERSON Acetaminophen (Acetaminophen Supp 650 Mg Supp.Rect) 650 mg DE Q4H PRN PRN Reason: Fever Or Pain Albuterol/Ipratropium (Albuterol/Iprat 2.5/0.5mg 3 Ml Ampul.Neb) 3 ml INHALE RQ4H WHILE AWAKE [facility] Last Admin: 02/05/24 14:52 Dose: 3 ml Documented By: KEE Albuterol/Ipratropium (Albuterol/Iprat 2.5/0.5mg 3 Ml Ampul.Neb) 3 ml INHALE Q4H PRN PRN Reason: Wheezing Aripiprazole (Aripiprazole 5 Mg Tablet) 5 mg PO DAILY [facility] Last Admin: 02/05/24 09:05 Dose: 5 mg Documented By: DELON Ascorbic Acid (Ascorbic Acid 500 Mg Tablet) 500 mg PO DAILY [facility] Last Admin: 02/05/24 09:07 Dose: 500 mg Documented By: DELON Atorvastatin Calcium (Atorvastatin Calcium 40 Mg Tablet) 40 mg PO BEDTIME [facility] Last Admin: 02/04/24 22:02 Dose: Not Given Documented By: HO.SEXK Non-Admin Reason: TOO SLEEPY, FAMILY AT BEDSIDE Bisacodyl (Bisacodyl 10 Mg Supp.Rect) 10 mg DE DAILY PRN PRN Reason: Constipation Buspirone HCl (Buspirone Hcl 5 Mg Tablet) 5 mg PO BID [facility] Last Admin: 02/05/24 09:07 Dose: 5 mg Documented By: DELON Calcium Carbonate (Calcium Carbonate 750 Mg Tab.Chew) 750 mg PO Q4H PRN PRN Reason: Heartburn Divalproex Sodium (Divalproex Sodium Er 250 Mg Tab.Er.24h) 250 mg PO BEDTIME [facility] Last Admin: 02/04/24 22:03 Dose: Not Given Documented By: MAXIMINO Non-Admin Reason: TOO SLEEPY, FAMILY AT BEDSIDE Divalproex Sodium (Divalproex Sodium Er 500 Mg Tab.Er.24h) 500 mg PO BID [facility] Last Admin: 02/05/24 09:07 Dose: 500 mg Documented By: DELON Docusate Sodium (Docusate Sodium 100 Mg Capsule) 100 mg PO BID [facility] Last Admin: 02/03/24 10:06 Dose: Not Given Documented By: HARVEY Non-Admin Reason: pt has diarrhea Enoxaparin Sodium (Enoxaparin Sodium 100 Mg/Ml Syringe) 100 mg SUBCUT Q12H [facility] Last Admin: 02/05/24 09:07 Dose: 100 mg Documented By: DELON Ferrous Sulfate (Ferrous Sulfate 324 Mg Tablet.Dr) 324 mg PO DAILY [facility] Last Admin: 02/05/24 09:07 Dose: 324 mg Documented By: DELON Gabapentin (Gabapentin 100 Mg Capsule) 100 mg PO TID [facility] Last Admin: 02/05/24 09:07 Dose: 100 mg Documented By: DELON Glucose (Glucose Gel 15 Gm Gel..Gram.) 15 gm PO Q15M PRN; Protocol PRN Reason: per Hypoglycemia Standing Ord. Dextrose (D10) 250 mls @ 750 mls/hr IV Q15M PRN; Protocol PRN Reason: per Hypoglycemia Standing Ord. Insulin Glargine (Insulin Glargine,Hum.Rec.Anlog 100 Unit/Ml 10 Ml Vial) 30 unit SUBCUT BEDTIME [facility] Last Admin: 02/04/24 20:45 Dose: 30 unit Documented By: MAXIMINO Insulin Human Lispro (Insulin Lispro 100 Unit/Ml 3 Ml Vial) 0 unit SUBCUT QIDACHS [facility]; Protocol Last Admin: 02/05/24 11:59 Dose: 6 unit Documented By: DELON Insulin Human Lispro (Insulin Lispro 100 Unit/Ml 3 Ml Vial) 6 unit SUBCUT QIDAS [facility] Last Admin: 02/05/24 12:00 Dose: 6 unit Documented By: DELON Levothyroxine Sodium (Levothyroxine Sodium 100 Mcg Tablet) 100 mcg PO DAILY@0600 [facility] Last Admin: 02/05/24 05:49 Dose: 100 mcg Documented By: MAXIMINO Loperamide HCl (Loperamide Hcl 2 Mg Capsule) 2 mg PO Q4H PRN PRN Reason: Diarrhea Lorazepam (Lorazepam 0.5 Mg Tablet) 0.5 mg PO Q12H PRN PRN Reason: Agitation Last Admin: 02/03/24 01:42 Dose: 0.5 mg Documented By: CASTILLO Magnesium Hydroxide (Milk Of Magnesia 30 Ml Oral.Susp) 30 ml PO DAILY PRN PRN Reason: Constipation Melatonin (Melatonin 3 Mg Tablet) 6 mg PO BEDTIME PRN PRN Reason: Insomnia Metoprolol Succinate (Metoprolol Succinate Er 25 Mg Tab.Er.24h) 25 mg PO BID [facility]; Protocol Last Admin: 02/05/24 09:05 Dose: 25 mg Documented By: DELON Nystatin (Nystatin Powder 15 Gm Bottle) 1 appl TOPICAL BID [facility]; Protocol Last Admin: 02/05/24 09:18 Dose: 1 appl Documented By: DELON Omeprazole (Omeprazole 20 Mg Capsule.) 20 mg PO DAILY@0630 [facility] Last Admin: 02/05/24 05:49 Dose: 20 mg Documented By: MAXIMINO Ondansetron HCl (Ondansetron Hcl 4 Mg/2 Ml Vial) 4 mg IVPUSH Q8H PRN PRN Reason: Nausea and Vomiting Oxybutynin Chloride (Oxybutynin Chloride Er 5 Mg Tab.Er.24) 5 mg PO DAILY [facility] Last Admin: 02/05/24 09:04 Dose: 5 mg Documented By: DELON Prednisone (Prednisone 20 Mg Tablet) 40 mg PO DAILY [facility] Last Admin: 02/05/24 09:07 Dose: 40 mg Documented By: DELON Risperidone (Risperidone 2 Mg Tablet) 2 mg PO BID [facility] Last Admin: 02/05/24 09:05 Dose: 2 mg Documented By: DELON Simethicone (Simethicone 80 Mg Tab.Chew) 80 mg PO QIDWMHS PRN PRN Reason: Gas Sodium Chloride (0.9 % Sodium Chloride Flush 3 Ml Syringe) 3 ml IVFLUSH QSHIFT [facility] Last Admin: 02/05/24 09:09 Dose: 3 ml Documented By: DELON Tramadol HCl (Tramadol Hcl 50 Mg Tablet) 50 mg PO Q8H PRN PRN Reason: Pain, Moderate(Pain Scale 4-6) Vitamin D (Cholecalciferol (Vitamin D3) 25 Mcg Tablet) 25 mcg PO DAILY [facility] Last Admin: 02/05/24 09:05 Dose: 25 mcg Documented By: DELON Labs 02/02/24 07:08 02/04/24 05:33 Labs: Laboratory Results - last 24 hr 02/04/24 02/04/24 02/05/24 16:35 19:43 07:03 POC Glucose 374 H* 386 H* 163 H 02/05/24 11:04 POC Glucose 293 H Assessment and Plan (1) COPD exacerbation: Status: Acute Assessment and Plan: 78-year-old female with a PMH significant for?paroxysmal AFib on anticoagulation HLD, insulin-dependent type 2 diabetes, hypothyroidism, former tobacco user, likely COPD, recently diagnosed right lung mass, and bipolar disorder who presents to the ED from [facility]?for increasing shortness a breath and acute on chronic hypoxia. Was admitted to the hospital for treatment and further evaluation of acute hypoxic respiratory failure in the setting of exacerbation of obstructive lung disease in a patient with likely metastatic lung cancer. Acute hypoxic respiratory failure in the setting of COPD with acute exacerbation Continue DuoNebs Will switch Solu-Medrol to prednisone 40 mg p.o. daily Titrate supplemental O2 with goal of 94 on 3L NC New right lung mass With likely mediastinal and liver metastasis Any additional imaging or workup -- EBUS, PET scan -- to be done outpatient However, pt's family/HCP likely not going to pursue biopsy Hospice consult Diarrhea Pt with multiple episodes of diarrhea while in the hospital Last episode last night Stool panels negative, C diff negative Will hold bowel regimen Check BMP in the morning Paroxysmal AFib Patient previously on Eliquis which was transitioned to therapeutic Lovenox in anticipation of imminent lung biopsy Daughter/HCP now questions whether or when lung biopsy will be done Continue therapeutic Lovenox for now, though consider switching back to Eliquis depending on when/if lung biopsy will be done Insulin-dependent type 2 diabetes Sliding-scale insulin, Lantus Diabetic diet HLD Continue statin Hypothyroidism Continue levothyroxine Bipolar disorder Continue home mood stabilizers Chronic constipation Patient on significant bowel regimen, continue DNR/DNI DVT Prophylaxis: Therapeutic Lovenox Pt will require continued hospitalization due to hypoxia, SOB, hospice consideration. Quality Stroke Does the patient have a stroke diagnosis?: No VTE Prior VTE?: No VTE Risk Level:: Medical - moderate - high VTE Device Contraindication: Treatment Not Indicated VTE Drug Contraindication: N/A - Med Ordered
--- NOTE | 2024-02-05 16:02 | MHC.CM.PN ---
THIS CM MET WITH PTS FAMILY PRESENT AT BEDSIDE, MANY QUESTIONS ASKED BY FAMILY. PT STATES THEY WERE NOT HAPPY WITH [facility], LIST OF OTHER FACILITIES GIVEN TO PTS FAMILY. PTS FAMILY WOULD LIKE A TEAM MEETING WITH PTS HOSPITAL TEAM, HOSPITALIST UPDATED. FAMILY IS UNSURE IF THEY WOULD LIKE TO PURSUE HOSPICE CARE UNTIL THEY HAVE MORE INFORMATION ABOUT HER CANCER, PULMONARY CONSULT PENDING.
[2024-02-05 16:16] LABS: Glucose, Whole Blood 332 mg/dL (60-115)
[2024-02-05 20:24] LABS: Glucose, Whole Blood 440 mg/dL (60-115)
[2024-02-05] MEDS: Insulin Regular, Human 100 UNIT/ML 10 ML VIAL IVPUSH (21:12)
[2024-02-05] MEDS: Insulin Glargine,Hum.rec.anlog 100 UNIT/ML 10 ML VIAL 30 UNIT SUBCUT (21:17)
[2024-02-05] MEDS: Divalproex Sodium ER 250 MG TAB.ER.24H PO (21:19)
[2024-02-05] MEDS: Atorvastatin Calcium 40 MG TABLET PO (21:21)
[2024-02-06] VITALS (7 sets, daily range): BP systolic 103–131; BP diastolic 57–68; PULSE 60–72; RESP 16–18; TEMP 36.1–36.7; O2SAT 92–97
[2024-02-06] MEDS: 0.9 % Sodium Chloride Flush 3 ML SYRINGE IVFLUSH ×4 (00:52→21:52)
[2024-02-06] MEDS: Acetaminophen 325 MG TABLET 650 MG PO ×2 (04:30→19:31)
[2024-02-06] MEDS: Omeprazole 20 MG CAPSULE.DR PO (05:30)
[2024-02-06] MEDS: Levothyroxine Sodium 100 MCG TABLET PO (05:30)
[2024-02-06 07:19] LABS: Glucose, Whole Blood 166 mg/dL (60-115)
[2024-02-06] MEDS: oxyBUTYnin chloride ER 5 MG TAB.ER.24 PO (08:25)
[2024-02-06] MEDS: Ascorbic Acid 500 MG TABLET PO (08:25)
[2024-02-06] MEDS: predniSONE 20 MG TABLET 40 MG PO (08:25)
[2024-02-06] MEDS: risperiDONE 2 MG TABLET PO ×2 (08:25→19:31)
[2024-02-06] MEDS: Cholecalciferol (Vitamin D3) 25 MCG TABLET PO (08:25)
[2024-02-06] MEDS: ARIPiprazole 5 MG TABLET PO (08:25)
[2024-02-06] MEDS: Gabapentin 100 MG CAPSULE PO ×3 (08:26→19:31)
[2024-02-06] MEDS: Metoprolol Succinate ER 25 MG TAB.ER.24H PO ×2 (08:26→21:51)
[2024-02-06] MEDS: Ferrous Sulfate 324 MG TABLET.DR PO (08:26)
[2024-02-06] MEDS: busPIRone HCl 5 MG TABLET PO ×2 (08:26→19:30)
[2024-02-06] MEDS: Divalproex Sodium ER 500 MG TAB.ER.24H PO ×2 (08:26→19:30)
[2024-02-06] MEDS: Nystatin Powder 15 GM BOTTLE 1 APPL TOPICAL ×2 (08:33→21:52)
[2024-02-06] MEDS: Enoxaparin Sodium 100 MG/ML SYRINGE SUBCUT (09:24)
[2024-02-06 11:17] LABS: Glucose, Whole Blood 333 mg/dL (60-115)
[2024-02-06] MEDS: Albuterol/Iprat 2.5/0.5MG 3 ML AMPUL.NEB INHALE ×2 (11:42→20:12)
[2024-02-06] MEDS: Insulin Lispro 100 UNIT/ML 3 ML VIAL SUBCUT ×3 (11:52→21:05)
[2024-02-06] MEDS: Insulin Lispro 100 UNIT/ML 3 ML VIAL 6 UNIT SUBCUT ×3 (11:53→21:06)
--- NOTE | 2024-02-06 15:35 | P.CONPL_ITS ---
History of Present Illness History of Present Illness Consult date: 02/06/24 Chief complaint: Dyspnea Narrative: 78-year-old lady with underlying AFib on anticoagulation, COPD, diabetes mellitus type 2, likely COPD with recent admission for hypoxic respiratory failure and CT chest consistent with possible metastatic lung cancer discharged to rehab with outpatient follow-up readmitted on 01/31/2024 with worsening dyspnea and treated for COPD exacerbation. Patient was unable to obtain outpatient PET secondary to insufficient time to have it set up between subsequent hospitalizations. Review of Systems 2 Constitutional: Constitutional: Denies daytime sleepiness, Denies excessive sweating, Denies fatigue, Denies fever(s), Denies lethargy, Denies malaise, Denies night sweats, Denies snoring and Denies weight loss Eyes: Eyes: Denies blurry vision and Denies itchy eyes ENT: Denies nasal congestion, Denies post nasal drip, Denies sinus pain, Denies sinus pressure and Denies other ( Thrush) Cardiovascular: Cardiovascular: Denies chest pain, Denies pedal edema, Denies dyspnea, Denies orthopnea and Denies paroxysmal nocturnal dyspnea Respiratory: Respiratory: Denies cough, Denies hemoptysis, Denies excessive phlegm production, Denies dyspnea, Denies snoring and Denies wheezing Gastrointestinal: Gastrointestinal: Denies abdominal pain and Denies heartburn Musculoskeletal: Musculoskeletal: Denies myalgias, Denies arthralgias and Denies joint swelling Integumentary/Breasts: Skin/Breast: Denies rash Neurologic: Denies memory loss and Denies seizure-like activity Psychiatric: Psychiatric: Denies abnormal sleep pattern, Denies anxiety and Denies memory loss Endocrine: Endocrine: Denies excessive sweating, Denies fatigue and Denies heat intolerance Hematologic/Lymphatic: Hematologic/Lymphatic: Denies easy bruising Allergic/Immunologic: Allergic/Immunologic: Denies itchy eyes, Denies seasonal rhinorrhea and Denies wheezing PMFSH Past Medical History Medical History (Updated 02/04/24 @ 00:02 by Background Daemon) Lymphadenopathy, mediastinal COPD (chronic obstructive pulmonary disease) PAF (paroxysmal atrial fibrillation) Vaginal pain Gait instability Hypertension Intertrigo Obesity (BMI 30-39.9) Bipolar disorder Anemia Allergic rhinitis Acquired hypothyroidism Pure hypercholesterolemia Diabetes mellitus GERD without esophagitis Pain of left lower extremity High bilirubin Hx of strabismus Hx of diabetes insipidus History of vitamin D deficiency Family History Family History Father History of cerebral hemorrhage Mother History of cerebral hemorrhage Sister Breast cancer Surgical History Surgical History Hx of colonoscopy History of eye surgery History of left breast biopsy Hx of dilation and curettage Hx of cataract surgery (~07/2017) Social History Social History Household Members: Spouse Housing: Apartment Do you presently have visiting nurse or other home services: No Alcohol intake: never Comment: Family bedside Patient Tobacco Use Status: Former Tobacco user Tobacco use type: Cigarette Years Smoked: 20 e-Cigarette/Vaping Use: Never Used Second Hand Smoke Exposure: No Advance Directives Date on File: 08/24/20 service: No Current occupational status: retired Cognitive needs: Yes (wheelchair) Hearing needs: No Vision needs: Yes (reading glasses) Meds Allergies Allergy/AdvReac Type Severity Reaction Status Date / Time amoxicillin [Amoxicillin] Allergy Intermediate SWELLING, Verified 01/31/24 13:34 rash Sulfa (Sulfonamide Allergy Intermediate itching & Verified 01/31/24 13:34 Antibiotics) bruising codeine [CODEINE] Allergy Unknown RASH Verified 01/31/24 13:34 dicyclomine Allergy Unknown Unknown Verified 01/31/24 13:34 lidocaine [LIDOCAINE] Allergy Unknown UNKNOWN Verified 01/31/24 13:34 lithium [LITHIUM] AdvReac Severe NEPHROGENIC Verified 01/31/24 13:34 DIABETES INSIPIDUS meclizine [Meclizine] AdvReac Intermediate INCREASES Verified 01/31/24 13:34 DIZZINESS simvastatin [SIMVASTATIN] AdvReac Intermediate MYALGIAS Verified 01/31/24 13:34 metronidazole [METRONIDAZOLE] AdvReac Mild FLU LIKE Verified 01/31/24 13:34 SYMPTOMS acyclovir AdvReac Unknown Unknown Verified 01/31/24 13:34 dulaglutide [From Trulicity] AdvReac Unknown dizziness, Verified 01/31/24 13:34 tongue swollen semaglutide [From Ozempic] AdvReac Unknown Dizziness, Verified 01/31/24 13:34 problems remembering Active Medications: Current Medications Acetaminophen (Acetaminophen 325 Mg Tablet) 650 mg PO Q6H PRN PRN Reason: Pain, Mild (Pain Scale 1-3), fever or headache Last Admin: 02/06/24 04:30 Dose: 650 mg Acetaminophen (Acetaminophen Supp 650 Mg Supp.Rect) 650 mg IN Q4H PRN PRN Reason: Fever Or Pain Albuterol/Ipratropium (Albuterol/Iprat 2.5/0.5mg 3 Ml Ampul.Neb) 3 ml INHALE RQ4H WHILE AWAKE [facility] Last Admin: 02/06/24 15:20 Dose: Not Given Albuterol/Ipratropium (Albuterol/Iprat 2.5/0.5mg 3 Ml Ampul.Neb) 3 ml INHALE Q4H PRN PRN Reason: Wheezing Aripiprazole (Aripiprazole 5 Mg Tablet) 5 mg PO DAILY [facility] Last Admin: 02/06/24 08:25 Dose: 5 mg Ascorbic Acid (Ascorbic Acid 500 Mg Tablet) 500 mg PO DAILY [facility] Last Admin: 02/06/24 08:25 Dose: 500 mg Atorvastatin Calcium (Atorvastatin Calcium 40 Mg Tablet) 40 mg PO BEDTIME [facility] Last Admin: 02/05/24 21:21 Dose: 40 mg Bisacodyl (Bisacodyl 10 Mg Supp.Rect) 10 mg IN DAILY PRN PRN Reason: Constipation Buspirone HCl (Buspirone Hcl 5 Mg Tablet) 5 mg PO BID [facility] Last Admin: 02/06/24 08:26 Dose: 5 mg Calcium Carbonate (Calcium Carbonate 750 Mg Tab.Chew) 750 mg PO Q4H PRN PRN Reason: Heartburn Divalproex Sodium (Divalproex Sodium Er 250 Mg Tab.Er.24h) 250 mg PO BEDTIME [facility] Last Admin: 02/05/24 21:19 Dose: 250 mg Divalproex Sodium (Divalproex Sodium Er 500 Mg Tab.Er.24h) 500 mg PO BID [facility] Last Admin: 02/06/24 08:26 Dose: 500 mg Docusate Sodium (Docusate Sodium 100 Mg Capsule) 100 mg PO BID [facility] Last Admin: 02/03/24 10:06 Dose: Not Given Enoxaparin Sodium (Enoxaparin Sodium 100 Mg/Ml Syringe) 100 mg SUBCUT Q12H [facility] Last Admin: 02/06/24 09:24 Dose: 100 mg Ferrous Sulfate (Ferrous Sulfate 324 Mg Tablet.Dr) 324 mg PO DAILY [facility] Last Admin: 02/06/24 08:26 Dose: 324 mg Gabapentin (Gabapentin 100 Mg Capsule) 100 mg PO TID [facility] Last Admin: 02/06/24 08:26 Dose: 100 mg Glucose (Glucose Gel 15 Gm Gel..Gram.) 15 gm PO Q15M PRN; Protocol PRN Reason: per Hypoglycemia Standing Ord. Dextrose (D10) 250 mls @ 750 mls/hr IV Q15M PRN; Protocol PRN Reason: per Hypoglycemia Standing Ord. Insulin Glargine (Insulin Glargine,Hum.Rec.Anlog 100 Unit/Ml 10 Ml Vial) 30 unit SUBCUT BEDTIME [facility] Last Admin: 02/05/24 21:17 Dose: 30 unit Insulin Human Lispro (Insulin Lispro 100 Unit/Ml 3 Ml Vial) 0 unit SUBCUT QIDACHS [facility]; Protocol Last Admin: 02/06/24 11:52 Dose: 8 unit Insulin Human Lispro (Insulin Lispro 100 Unit/Ml 3 Ml Vial) 6 unit SUBCUT QIDACHS [facility] Last Admin: 02/06/24 11:53 Dose: 6 unit Levothyroxine Sodium (Levothyroxine Sodium 100 Mcg Tablet) 100 mcg PO DAILY@0600 [facility] Last Admin: 02/06/24 05:30 Dose: 100 mcg Loperamide HCl (Loperamide Hcl 2 Mg Capsule) 2 mg PO Q4H PRN PRN Reason: Diarrhea Magnesium Hydroxide (Milk Of Magnesia 30 Ml Oral.Susp) 30 ml PO DAILY PRN PRN Reason: Constipation Melatonin (Melatonin 3 Mg Tablet) 6 mg PO BEDTIME PRN PRN Reason: Insomnia Metoprolol Succinate (Metoprolol Succinate Er 25 Mg Tab.Er.24h) 25 mg PO BID [facility]; Protocol Last Admin: 02/06/24 08:26 Dose: 25 mg Nystatin (Nystatin Powder 15 Gm Bottle) 1 appl TOPICAL BID [facility]; Protocol Last Admin: 02/06/24 08:33 Dose: 1 appl Omeprazole (Omeprazole 20 Mg Capsule.) 20 mg PO DAILY@0630 [facility] Last Admin: 02/06/24 05:30 Dose: 20 mg Ondansetron HCl (Ondansetron Hcl 4 Mg/2 Ml Vial) 4 mg IVPUSH Q8H PRN PRN Reason: Nausea and Vomiting Oxybutynin Chloride (Oxybutynin Chloride Er 5 Mg Tab.Er.24) 5 mg PO DAILY [facility] Last Admin: 02/06/24 08:25 Dose: 5 mg Prednisone (Prednisone 20 Mg Tablet) 40 mg PO DAILY [facility] Last Admin: 02/06/24 08:25 Dose: 40 mg Risperidone (Risperidone 2 Mg Tablet) 2 mg PO BID [facility] Last Admin: 02/06/24 08:25 Dose: 2 mg Simethicone (Simethicone 80 Mg Tab.Chew) 80 mg PO QIDWMHS PRN PRN Reason: Gas Sodium Chloride (0.9 % Sodium Chloride Flush 3 Ml Syringe) 3 ml IVFLUSH QSHIFT [facility] Last Admin: 02/06/24 08:26 Dose: 3 ml Vitamin D (Cholecalciferol (Vitamin D3) 25 Mcg Tablet) 25 mcg PO DAILY [facility] Last Admin: 02/06/24 08:25 Dose: 25 mcg Home Medications ?Medication ?Instructions ?Recorded ?Confirmed ?Last Taken ?Type lancing device with lancets kit #1 ea 05/11/20 12/05/23 Unknown History ([facility] Lancing Device kit) buspirone 5 mg tablet 5 mg PO BID anxiety 03/01/22 01/31/24 Unknown History divalproex 500 mg tablet,extended 500 mg PO BID 03/01/22 01/31/24 Unknown History release 24 hr risperidone 2 mg tablet 2 mg PO BID 05/20/23 01/31/24 Unknown History atorvastatin 40 mg tablet 40 mg PO BEDTIME 01/20/24 01/31/24 Unknown History nystatin 100,000 unit/gram topical 1 appl topical BID PRN rash under 01/20/24 01/31/24 Unknown History powder breasts acetaminophen 325 mg tablet 650 mg PO Q4H PRN pin 01/31/24 01/31/24 Unknown History (Tylenol) acetaminophen 650 mg rectal 650 mg IN Q4H PRN Fever Or Pain 01/31/24 01/31/24 Unknown History suppository bisacodyl 10 mg rectal suppository 10 mg IN DAILY PRN Constipation 01/31/24 01/31/24 Unknown History insulin glargine 100 unit/mL (3 24 unit subcut BEDTIME 01/31/24 01/31/24 Unknown History mL) subcutaneous pen (Lantus Solostar U-100 Insulin) lorazepam 0.5 mg tablet 0.5 mg PO Q12H PRN Agitation 01/31/24 01/31/24 Unknown History metoprolol succinate 25 mg 25 mg PO BID 01/31/24 01/31/24 Unknown History tablet,extended release 24 hr naloxone 4 mg/actuation nasal spray 4 mg intranasal Q3M PRN Opiate 01/31/24 01/31/24 Unknown History Reversal sennosides 8.6 mg tablet (senna) 17.2 mg PO BID 01/31/24 01/31/24 Unknown History sodium phosphates 19 gram-7 118 ml IN ONCE PRN Constipation 01/31/24 01/31/24 Unknown History gram/118 mL enema (Fleet Enema) tramadol 50 mg tablet 50 mg PO Q8H PRN Pain 01/31/24 01/31/24 Unknown History Physical Exam 2 Vital Signs: Vital Signs: Last Vital Signs Temp 97.1 F 02/06/24 15:22 Pulse 72 02/06/24 15:22 Resp 18 02/06/24 15:22 BP 116/57 L 02/06/24 15:22 Pulse Ox 92 02/06/24 15:22 O2 Del Method Nasal Cannula 02/06/24 15:22 O2 Flow Rate 2.5 02/06/24 15:22 Oxygen Flow Rate 14 01/31/24 13:23 BMI result Body Mass Index 33.8 Const: General: no acute distress and alert Nutritional Appearance: not obese Orientation/consciousness: Other orientation findings ( oriented) HEENT: Head: Yes atraumatic Eyes: General: appearance normal, both eyes and all related structures S clerae: sclerae normal EOM: EOMs intact bilaterally Neck: Neck: Yes supple Lymphatic: no lymphadenopathy noted Resp: Effort & Inspection: normal respiratory effort and no use of accessory muscles Auscultation: clear to auscultation bilaterally Cardio: Rate: regular rate Rhythm: regular rhythm Heart sounds: no gallops, no murmurs and no rubs Skin: General skin exam: other ( warm) Extrem: General: No clubbing, No cyanosis and No edema Results Laboratory Findings 02/02/24 07:08 02/04/24 05:33 Abnormal lab findings: Abnormal Labs 01/31/24 01/31/24 01/31/24 13:41 13:46 14:41 WBC 11.9 H RBC 3.81 L Hgb Hct MCV MPV Immature Gran % (Auto) 4.2 H Neut % (Auto) 76.4 H Lymph % (Auto) 8.9 L Lymph # (Auto) 1.1 L Abs Immat Gran (auto) 0.50 H Absolute Neuts (auto) 9.1 H VBG pH 7.46 H VBG HCO3 35 H Chloride 94 L Carbon Dioxide 31 H BUN 23 H POC Glucose Random Glucose 166 H Fasting Glucose 01/31/24 01/31/24 01/31/24 18:47 21:05 23:16 WBC RBC Hgb Hct MCV MPV Immature Gran % (Auto) Neut % (Auto) Lymph % (Auto) Lymph # (Auto) Abs Immat Gran (auto) Absolute Neuts (auto) VBG pH VBG HCO3 Chloride Carbon Dioxide BUN POC Glucose 224 H 267 H 403 H* Random Glucose Fasting Glucose 02/01/24 02/01/24 02/01/24 05:00 07:10 08:10 WBC 11.3 H RBC 3.61 L Hgb 11.8 L Hct 34.9 L MCV MPV Immature Gran % (Auto) 4.7 H Neut % (Auto) 82.8 H Lymph % (Auto) 7.5 L Lymph # (Auto) 0.9 L Abs Immat Gran (auto) 0.53 H Absolute Neuts (auto) 9.3 H VBG pH VBG HCO3 Chloride 95 L Carbon Dioxide BUN 25 H POC Glucose 269 H Random Glucose 305 H Fasting Glucose 02/01/24 02/01/24 02/01/24 11:06 16:40 19:58 WBC RBC Hgb Hct MCV MPV Immature Gran % (Auto) Neut % (Auto) Lymph % (Auto) Lymph # (Auto) Abs Immat Gran (auto) Absolute Neuts (auto) VBG pH VBG HCO3 Chloride Carbon Dioxide BUN POC Glucose 302 H 357 H* 347 H Random Glucose Fasting Glucose 02/02/24 02/02/24 02/02/24 07:08 07:43 11:33 WBC 16.2 H RBC 3.72 L Hgb Hct 36.7 L MCV 98.7 H MPV 9.3 L Immature Gran % (Auto) Neut % (Auto) Lymph % (Auto) Lymph # (Auto) Abs Immat Gran (auto) Absolute Neuts (auto) VBG pH VBG HCO3 Chloride Carbon Dioxide BUN 29 H POC Glucose 195 H 375 H* Random Glucose Fasting Glucose 205 H 02/02/24 02/02/24 02/03/24 16:05 20:01 07:34 WBC RBC Hgb Hct MCV MPV Immature Gran % (Auto) Neut % (Auto) Lymph % (Auto) Lymph # (Auto) Abs Immat Gran (auto) Absolute Neuts (auto) VBG pH VBG HCO3 Chloride Carbon Dioxide BUN POC Glucose 387 H* 328 H 294 H Random Glucose Fasting Glucose 02/03/24 02/03/24 02/03/24 11:18 13:35 16:03 WBC RBC Hgb Hct MCV MPV Immature Gran % (Auto) Neut % (Auto) Lymph % (Auto) Lymph # (Auto) Abs Immat Gran (auto) Absolute Neuts (auto) VBG pH VBG HCO3 Chloride Carbon Dioxide BUN POC Glucose 375 H* 397 H* 365 H* Random Glucose Fasting Glucose 02/03/24 02/04/24 02/04/24 20:14 05:33 07:18 WBC RBC Hgb Hct MCV MPV Immature Gran % (Auto) Neut % (Auto) Lymph % (Auto) Lymph # (Auto) Abs Immat Gran (auto) Absolute Neuts (auto) VBG pH VBG HCO3 Chloride Carbon Dioxide 30 H BUN 28 H POC Glucose 338 H 127 H Random Glucose Fasting Glucose 02/04/24 02/04/24 02/04/24 11:08 16:35 19:43 WBC RBC Hgb Hct MCV MPV Immature Gran % (Auto) Neut % (Auto) Lymph % (Auto) Lymph # (Auto) Abs Immat Gran (auto) Absolute Neuts (auto) VBG pH VBG HCO3 Chloride Carbon Dioxide BUN POC Glucose 291 H 374 H* 386 H* Random Glucose Fasting Glucose 02/05/24 02/05/24 02/05/24 07:03 11:04 16:12 WBC RBC Hgb Hct MCV MPV Immature Gran % (Auto) Neut % (Auto) Lymph % (Auto) Lymph # (Auto) Abs Immat Gran (auto) Absolute Neuts (auto) VBG pH VBG HCO3 Chloride Carbon Dioxide BUN POC Glucose 163 H 293 H 332 H Random Glucose Fasting Glucose 02/05/24 02/06/24 02/06/24 20:21 07:09 11:13 WBC RBC Hgb Hct MCV MPV Immature Gran % (Auto) Neut % (Auto) Lymph % (Auto) Lymph # (Auto) Abs Immat Gran (auto) Absolute Neuts (auto) VBG pH VBG HCO3 Chloride Carbon Dioxide BUN POC Glucose 440 H* 166 H 333 H Random Glucose Fasting Glucose Assessment and Plan (1) COPD (chronic obstructive pulmonary disease): Qualifiers: COPD type: chronic bronchitis Chronic bronchitis type: simple Q ualified Code(s): J41.0 - Simple chronic bronchitis Status: Acute (2) Mass of right lung: Status: Acute Plan Impression: 78-year-old lady with likely metastatic lung cancer admitted with COPD exacerbation and now improving. Recommendations: Outpatient PET on date of discharge and further outpatient follow-up for appropriate side biopsy. Will arrange for PET. If unable, will consider EBUS biopsy in-house. Procedures Date of Service Date of Service: 02/06/24
--- NOTE | 2024-02-06 15:35 | P.PNIM_ITS ---
Subjective Subjective Date of Service: 02/06/24 Interval History: copd Review of Systems sob seems at baseline no fever or chills Physical Exam 2 Vital Signs: Vital Signs: Last Vital Signs Temp 97.1 F 02/06/24 15: Pulse 72 02/06/24 15:22 Resp 18 02/06/24 15:22 BP 116/57 L 02/06/24 15:22 Pulse Ox 92 02/06/24 15:22 O2 Del Method Nasal Cannula 02/06/24 15:22 O2 Flow Rate 2.5 02/06/24 15:22 Oxygen Flow Rate 14 01/31/24 13:23 BMI result Body Mass Index 33.8 General: awake ,alert simialr to yesterday Resp: CTA bilaterally CVS: S1, S2, RRR GI: +BS, NT, no distention Skin: Warm, dry Neuro: Cranial nerves II-XII grossly intact bilaterally. Motor grossly intact bilaterally Extremities: No edema Psych: Appropriate affect Objective Data Active Medications Acetaminophen (Acetaminophen 325 Mg Tablet) 650 mg PO Q6H PRN PRN Reason: Pain, Mild (Pain Scale 1-3), fever or headache Last Admin: 02/06/24 04:30 Dose: 650 mg Documented By: ISSAC Acetaminophen (Acetaminophen Supp 650 Mg Supp.Rect) 650 mg MT Q4H PRN PRN Reason: Fever Or Pain Albuterol/Ipratropium (Albuterol/Iprat 2.5/0.5mg 3 Ml Ampul.Neb) 3 ml INHALE RQ4H WHILE AWAKE [facility] Last Admin: 02/06/24 15:20 Dose: Not Given Documented By: KEE Non-Admin Reason: Patient Refused Albuterol/Ipratropium (Albuterol/Iprat 2.5/0.5mg 3 Ml Ampul.Neb) 3 ml INHALE Q4H PRN PRN Reason: Wheezing Aripiprazole (Aripiprazole 5 Mg Tablet) 5 mg PO DAILY [facility] Last Admin: 02/06/24 08:25 Dose: 5 mg Documented By: LALI Ascorbic Acid (Ascorbic Acid 500 Mg Tablet) 500 mg PO DAILY [facility] Last Admin: 02/06/24 08:25 Dose: 500 mg Documented By: LALI Atorvastatin Calcium (Atorvastatin Calcium 40 Mg Tablet) 40 mg PO BEDTIME [facility] Last Admin: 02/05/24 21:21 Dose: 40 mg Documented By: ISSAC Bisacodyl (Bisacodyl 10 Mg Supp.Rect) 10 mg MT DAILY PRN PRN Reason: Constipation Buspirone HCl (Buspirone Hcl 5 Mg Tablet) 5 mg PO BID [facility] Last Admin: 02/06/24 08:26 Dose: 5 mg Documented By: LALI Calcium Carbonate (Calcium Carbonate 750 Mg Tab.Chew) 750 mg PO Q4H PRN PRN Reason: Heartburn Divalproex Sodium (Divalproex Sodium Er 250 Mg Tab.Er.24h) 250 mg PO BEDTIME [facility] Last Admin: 02/05/24 21:19 Dose: 250 mg Documented By: ISSAC Divalproex Sodium (Divalproex Sodium Er 500 Mg Tab.Er.24h) 500 mg PO BID [facility] Last Admin: 02/06/24 08:26 Dose: 500 mg Documented By: LALI Docusate Sodium (Docusate Sodium 100 Mg Capsule) 100 mg PO BID [facility] Last Admin: 02/03/24 10:06 Dose: Not Given Documented By: HARVEY Non-Admin Reason: pt has diarrhea Enoxaparin Sodium (Enoxaparin Sodium 100 Mg/Ml Syringe) 100 mg SUBCUT Q12H [facility] Last Admin: 02/06/24 09:24 Dose: 100 mg Documented By: LALI Ferrous Sulfate (Ferrous Sulfate 324 Mg Tablet.Dr) 324 mg PO DAILY [facility] Last Admin: 02/06/24 08:26 Dose: 324 mg Documented By: LALI Gabapentin (Gabapentin 100 Mg Capsule) 100 mg PO TID [facility] Last Admin: 02/06/24 08:26 Dose: 100 mg Documented By: LALI Glucose (Glucose Gel 15 Gm Gel..Gram.) 15 gm PO Q15M PRN; Protocol PRN Reason: per Hypoglycemia Standing Ord. Dextrose (D10) 250 mls @ 750 mls/hr IV Q15M PRN; Protocol PRN Reason: per Hypoglycemia Standing Ord. Insulin Glargine (Insulin Glargine,Hum.Rec.Anlog 100 Unit/Ml 10 Ml Vial) 30 unit SUBCUT BEDTIME [facility] Last Admin: 02/05/24 21:17 Dose: 30 unit Documented By: ISSAC Insulin Human Lispro (Insulin Lispro 100 Unit/Ml 3 Ml Vial) 0 unit SUBCUT QIDACHS [facility]; Protocol Last Admin: 02/06/24 11:52 Dose: 8 unit Documented By: LALI Insulin Human Lispro (Insulin Lispro 100 Unit/Ml 3 Ml Vial) 6 unit SUBCUT QIDACHS [facility] Last Admin: 02/06/24 11:53 Dose: 6 unit Documented By: LALI Levothyroxine Sodium (Levothyroxine Sodium 100 Mcg Tablet) 100 mcg PO DAILY@0600 [facility] Last Admin: 02/06/24 05:30 Dose: 100 mcg Documented By: ISSAC Loperamide HCl (Loperamide Hcl 2 Mg Capsule) 2 mg PO Q4H PRN PRN Reason: Diarrhea Magnesium Hydroxide (Milk Of Magnesia 30 Ml Oral.Susp) 30 ml PO DAILY PRN PRN Reason: Constipation Melatonin (Melatonin 3 Mg Tablet) 6 mg PO BEDTIME PRN PRN Reason: Insomnia Metoprolol Succinate (Metoprolol Succinate Er 25 Mg Tab.Er.24h) 25 mg PO BID [facility]; Protocol Last Admin: 02/06/24 08:26 Dose: 25 mg Documented By: LALI Nystatin (Nystatin Powder 15 Gm Bottle) 1 appl TOPICAL BID [facility]; Protocol Last Admin: 02/06/24 08:33 Dose: 1 appl Documented By: LALI Omeprazole (Omeprazole 20 Mg Capsule.Dr) 20 mg PO DAILY@0630 [facility] Last Admin: 02/06/24 05:30 Dose: 20 mg Documented By: ISSAC Ondansetron HCl (Ondansetron Hcl 4 Mg/2 Ml Vial) 4 mg IVPUSH Q8H PRN PRN Reason: Nausea and Vomiting Oxybutynin Chloride (Oxybutynin Chloride Er 5 Mg Tab.Er.24) 5 mg PO DAILY [facility] Last Admin: 02/06/24 08:25 Dose: 5 mg Documented By: LALI Prednisone (Prednisone 20 Mg Tablet) 40 mg PO DAILY [facility] Last Admin: 02/06/24 08:25 Dose: 40 mg Documented By: LALI Risperidone (Risperidone 2 Mg Tablet) 2 mg PO BID [facility] Last Admin: 02/06/24 08:25 Dose: 2 mg Documented By: LALI Simethicone (Simethicone 80 Mg Tab.Chew) 80 mg PO QIDWMHS PRN PRN Reason: Gas Sodium Chloride (0.9 % Sodium Chloride Flush 3 Ml Syringe) 3 ml IVFLUSH QSHIFT [facility] Last Admin: 02/06/24 08:26 Dose: 3 ml Documented By: LALI Vitamin D (Cholecalciferol (Vitamin D3) 25 Mcg Tablet) 25 mcg PO DAILY [facility] Last Admin: 02/06/24 08:25 Dose: 25 mcg Documented By: LALI Labs 02/02/24 07:08 02/04/24 05:33 Labs: Laboratory Results - last 24 hr 02/05/24 02/05/24 02/06/24 16:12 20:21 07:09 POC Glucose 332 H 440 H* 166 H 02/06/24 11:13 POC Glucose 333 H Assessment and Plan (1) COPD exacerbation: Status: Acute Assessment and Plan: 78-year-old female with a PMH significant for?paroxysmal AFib on anticoagulation HLD, insulin-dependent type 2 diabetes, hypothyroidism, former tobacco user, likely COPD, recently diagnosed right lung mass, and bipolar disorder who presents to the ED from [facility]?for increasing shortness a breath and acute on chronic hypoxia. Was admitted to the hospital for treatment and further evaluation of acute hypoxic respiratory failure in the setting of exacerbation of obstructive lung disease in a patient with likely metastatic lung cancer. Acute hypoxic respiratory failure in the setting of COPD with acute exacerbation Continue DuoNebs Will switch Solu-Medrol to prednisone 40 mg p.o. daily Titrate supplemental O2 with goal of 94 on 3L NC New right lung mass With likely mediastinal and liver metastasis Any additional imaging or workup -- EBUS, PET scan -- to be done outpatient However, pt's family/HCP likely not going to pursue biopsy Hospice consult Diarrhea Pt with multiple episodes of diarrhea while in the hospital Last episode last night Stool panels negative, C diff negative Will hold bowel regimen Check BMP in the morning Paroxysmal AFib Patient previously on Eliquis which was transitioned to therapeutic Lovenox in anticipation of imminent lung biopsy Daughter/HCP now questions whether or when lung biopsy will be done Continue therapeutic Lovenox for now, though consider switching back to Eliquis depending on when/if lung biopsy will be done Insulin-dependent type 2 diabetes Sliding-scale insulin, Lantus Diabetic diet HLD Continue statin Hypothyroidism Continue levothyroxine Bipolar disorder Continue home mood stabilizers Chronic constipation Patient on significant bowel regimen, continue DNR/DNI DVT Prophylaxis: Therapeutic Lovenox Pt will require continued hospitalization due to-awaiting lung ca workup Quality Stroke Does the patient have a stroke diagnosis?: No VTE Prior VTE?: No VTE Risk Level:: Medical - moderate - high VTE Device Contraindication: Treatment Not Indicated VTE Drug Contraindication: N/A - Med Ordered
[2024-02-06 16:05] LABS: Glucose, Whole Blood 403 mg/dL (60-115)
--- NOTE | 2024-02-06 16:06 | MHC.CM.PN ---
DCP: Per CM director, DCP: Pt to return to [facility] for STR pending insurance auth. Plan will be for pt to discharge on Friday 02/09, 2 BLS/Nabil trips to be booked 1st for pt to got to [facility] for a PET scan, and 2nd to be brought to [facility] after PET scan. This CM called pts daughter Katarina to update, voicemail was left.
[2024-02-06] MEDS: Atorvastatin Calcium 40 MG TABLET PO (19:30)
[2024-02-06] MEDS: Divalproex Sodium ER 250 MG TAB.ER.24H PO (19:30)
[2024-02-06] MEDS: Insulin Glargine,Hum.rec.anlog 100 UNIT/ML 10 ML VIAL 30 UNIT SUBCUT ×2 (21:06→21:09)
[2024-02-06] MEDS: Insulin Regular, Human 100 UNIT/ML 10 ML VIAL IVPUSH (21:41)
[2024-02-07] VITALS (28 sets, daily range): BP systolic 93–138; BP diastolic 50–74; PULSE 55–69; RESP 14–68; TEMP 35–36.6; O2SAT 84–99
[2024-02-07 07:13] LABS: Glucose, Whole Blood 383 mg/dL (60-115)
[2024-02-07 07:28] LABS: Glucose, Whole Blood 162 mg/dL (60-115)
[2024-02-07] MEDS: Albuterol/Iprat 2.5/0.5MG 3 ML AMPUL.NEB INHALE ×4 (07:59→19:38)
[2024-02-07] MEDS: Ascorbic Acid 500 MG TABLET PO (08:03)
[2024-02-07] MEDS: ARIPiprazole 5 MG TABLET PO (08:03)
[2024-02-07] MEDS: Gabapentin 100 MG CAPSULE PO ×3 (08:03→20:19)
[2024-02-07] MEDS: 0.9 % Sodium Chloride Flush 3 ML SYRINGE IVFLUSH ×3 (08:03→20:16)
[2024-02-07] MEDS: oxyBUTYnin chloride ER 5 MG TAB.ER.24 PO (08:03)
[2024-02-07] MEDS: Cholecalciferol (Vitamin D3) 25 MCG TABLET PO (08:03)
[2024-02-07] MEDS: Metoprolol Succinate ER 25 MG TAB.ER.24H PO ×2 (08:03→20:19)
[2024-02-07] MEDS: Divalproex Sodium ER 500 MG TAB.ER.24H PO ×2 (08:03→20:19)
[2024-02-07] MEDS: risperiDONE 2 MG TABLET PO ×2 (08:03→20:19)
[2024-02-07] MEDS: busPIRone HCl 5 MG TABLET PO ×2 (08:03→20:20)
[2024-02-07] MEDS: Ferrous Sulfate 324 MG TABLET.DR PO (08:03)
[2024-02-07] MEDS: Insulin Lispro 100 UNIT/ML 3 ML VIAL SUBCUT ×3 (08:04→20:15)
[2024-02-07] MEDS: Nystatin Powder 15 GM BOTTLE 1 APPL TOPICAL (08:07)
--- NOTE | 2024-02-07 09:46 | HO.PM.IMPN ---
Subjective Subjective Date of Service: 02/07/24 Interval History: copd /lung mass Review of Systems sob seem similar tolerated lung biopsy procedure seems some sleepy earlier ,now improving Physical Exam Vital Signs: Vital Signs: Last Vital Signs Temp 97.7 F 02/07/24 08:00 Pulse 60 02/07/24 08:00 Resp 18 02/07/24 08:00 BP 121/61 02/07/24 08:00 Pulse Ox 96 02/07/24 08:00 O2 Del Method Nasal Cannula 02/07/24 08:00 O2 Flow Rate 2.5 02/07/24 08:00 Oxygen Flow Rate 14 01/31/24 13:23 BMI result Body Mass Index 33.8 General: more awake this afternoon Resp: CTA bilaterally CVS: S1, S2, RRR GI: +BS, NT, no distention Skin: Warm, dry Neuro: Cranial nerves II-XII grossly intact bilaterally. Motor grossly intact bilaterally Extremities: No edema Psych: Appropriate affect Objective Data Active Medications Acetaminophen (Acetaminophen 325 Mg Tablet) 650 mg PO Q6H PRN PRN Reason: Pain, Mild (Pain Scale 1-3), fever or headache Last Admin: 02/06/24 19:31 Dose: 650 mg Documented By: ISSAC Acetaminophen (Acetaminophen Supp 650 Mg Supp.Rect) 650 mg WI Q4H PRN PRN Reason: Fever Or Pain Albuterol/Ipratropium (Albuterol/Iprat 2.5/0.5mg 3 Ml Ampul.Neb) 3 ml INHALE RQ4H WHILE AWAKE [facility] Last Admin: 02/07/24 07:59 Dose: 3 ml Documented By: VASQUEZ Albuterol/Ipratropium (Albuterol/Iprat 2.5/0.5mg 3 Ml Ampul.Neb) 3 ml INHALE Q4H PRN PRN Reason: Wheezing Aripiprazole (Aripiprazole 5 Mg Tablet) 5 mg PO DAILY [facility] Last Admin: 02/07/24 08:03 Dose: 5 mg Documented By: RYNE Ascorbic Acid (Ascorbic Acid 500 Mg Tablet) 500 mg PO DAILY [facility] Last Admin: 02/07/24 08:03 Dose: 500 mg Documented By: RYNE Atorvastatin Calcium (Atorvastatin Calcium 40 Mg Tablet) 40 mg PO BEDTIME [facility] Last Admin: 02/06/24 19:30 Dose: 40 mg Documented By: ISSAC Bisacodyl (Bisacodyl 10 Mg Supp.Rect) 10 mg WI DAILY PRN PRN Reason: Constipation Buspirone HCl (Buspirone Hcl 5 Mg Tablet) 5 mg PO BID [facility] Last Admin: 02/07/24 08:03 Dose: 5 mg Documented By: RYNE Calcium Carbonate (Calcium Carbonate 750 Mg Tab.Chew) 750 mg PO Q4H PRN PRN Reason: Heartburn Divalproex Sodium (Divalproex Sodium Er 250 Mg Tab.Er.24h) 250 mg PO BEDTIME [facility] Last Admin: 02/06/24 19:30 Dose: 250 mg Documented By: ISSAC Divalproex Sodium (Divalproex Sodium Er 500 Mg Tab.Er.24h) 500 mg PO BID [facility] Last Admin: 02/07/24 08:03 Dose: 500 mg Documented By: RYNE Ferrous Sulfate (Ferrous Sulfate 324 Mg Tablet.Dr) 324 mg PO DAILY [facility] Last Admin: 02/07/24 08:03 Dose: 324 mg Documented By: RYNE Gabapentin (Gabapentin 100 Mg Capsule) 100 mg PO TID [facility] Last Admin: 02/07/24 08:03 Dose: 100 mg Documented By: RYNE Glucose (Glucose Gel 15 Gm Gel..Gram.) 15 gm PO Q15M PRN; Protocol PRN Reason: per Hypoglycemia Standing Ord. Dextrose (D10) 250 mls @ 750 mls/hr IV Q15M PRN; Protocol PRN Reason: per Hypoglycemia Standing Ord. Propofol (Diprivan) 1,000 mg in 100 mls @ 0 mls/hr IVCONT .Q0M [facility]; Protocol Norepinephrine Bitartrate (Levophed) 32 mg in 250 mls @ 0 mls/hr IVCONT .Q0M [facility]; Protocol Insulin Glargine (Insulin Glargine,Hum.Rec.Anlog 100 Unit/Ml 10 Ml Vial) 30 unit SUBCUT BEDTIME [facility] Last Admin: 02/06/24 21:09 Dose: 30 unit Documented By: ISSAC Insulin Human Lispro (Insulin Lispro 100 Unit/Ml 3 Ml Vial) 0 unit SUBCUT QIDACHS [facility]; Protocol Last Admin: 02/07/24 08:04 Dose: 2 unit Documented By: RYNE Insulin Human Lispro (Insulin Lispro 100 Unit/Ml 3 Ml Vial) 6 unit SUBCUT QIDACHS [facility] Last Admin: 02/07/24 07:59 Dose: Not Given Documented By: RYNE Non-Admin Reason: Physician Held Med Levothyroxine Sodium (Levothyroxine Sodium 100 Mcg Tablet) 100 mcg PO DAILY@0600 [facility] Last Admin: 02/07/24 05:30 Dose: Not Given Documented By: ISSAC Non-Admin Reason: NPO Loperamide HCl (Loperamide Hcl 2 Mg Capsule) 2 mg PO Q4H PRN PRN Reason: Diarrhea Magnesium Hydroxide (Milk Of Magnesia 30 Ml Oral.Susp) 30 ml PO DAILY PRN PRN Reason: Constipation Melatonin (Melatonin 3 Mg Tablet) 6 mg PO BEDTIME PRN PRN Reason: Insomnia Metoprolol Succinate (Metoprolol Succinate Er 25 Mg Tab.Er.24h) 25 mg PO BID [facility]; Protocol Last Admin: 02/07/24 08:03 Dose: 25 mg Documented By: RYNE Nystatin (Nystatin Powder 15 Gm Bottle) 1 appl TOPICAL BID [facility]; Protocol Last Admin: 02/07/24 08:07 Dose: 1 appl Documented By: RYNE Omeprazole (Omeprazole 20 Mg Capsule.Dr) 20 mg PO DAILY@0630 [facility] Last Admin: 02/07/24 05:30 Dose: Not Given Documented By: ISSAC Non-Admin Reason: NPO Ondansetron HCl (Ondansetron Hcl 4 Mg/2 Ml Vial) 4 mg IVPUSH Q8H PRN PRN Reason: Nausea and Vomiting Oxybutynin Chloride (Oxybutynin Chloride Er 5 Mg Tab.Er.24) 5 mg PO DAILY [facility] Last Admin: 02/07/24 08:03 Dose: 5 mg Documented By: RYNE Prednisone (Prednisone 10 Mg Tablet) 30 mg PO DAILY [facility] Risperidone (Risperidone 2 Mg Tablet) 2 mg PO BID [facility] Last Admin: 02/07/24 08:03 Dose: 2 mg Documented By: RYNE Simethicone (Simethicone 80 Mg Tab.Chew) 80 mg PO QIDWMHS PRN PRN Reason: Gas Sodium Chloride (0.9 % Sodium Chloride Flush 3 Ml Syringe) 3 ml IVFLUSH QSHIFT [facility] Last Admin: 02/07/24 08:03 Dose: 3 ml Documented By: RYNE Vitamin D (Cholecalciferol (Vitamin D3) 25 Mcg Tablet) 25 mcg PO DAILY [facility] Last Admin: 02/07/24 08:03 Dose: 25 mcg Documented By: RYNE Labs 02/02/24 07:08 02/04/24 05:33 Labs: Laboratory Results - last 24 hr 02/06/24 02/06/24 02/06/24 11:13 16:01 20:15 POC Glucose 333 H 403 H* 383 H* 02/07/24 07:12 POC Glucose 162 H Assessment and Plan (1) COPD exacerbation: Status: Acute Assessment and Plan: 78-year-old female with a PMH significant for?paroxysmal AFib on anticoagulation HLD, insulin-dependent type 2 diabetes, hypothyroidism, former tobacco user, likely COPD, recently diagnosed right lung mass, and bipolar disorder who presents to the ED from [facility]?for increasing shortness a breath and acute on chronic hypoxia. Was admitted to the hospital for treatment and further evaluation of acute hypoxic respiratory failure in the setting of exacerbation of obstructive lung disease in a patient with likely metastatic lung cancer. Acute hypoxic respiratory failure in the setting of COPD with acute exacerbation Continue DuoNebs,prednisone taper Titrate supplemental O2 with goal of 92 New right lung mass With likely mediastinal and liver metastasis Any additional imaging or workup -- EBUS-s/p lung biopsy, PET scan outpatient after discharge. Hospice consult Diarrhea improved. Paroxysmal AFib Patient previously on Eliquis which was transitioned to therapeutic Lovenox in anticipation of imminent lung biopsy Daughter/HCP now questions whether or when lung biopsy will be done Continue therapeutic Lovenox for now, though consider switching back to Eliquis depending on when/if lung biopsy will be done Insulin-dependent type 2 diabetes Sliding-scale insulin, Lantus Diabetic diet HLD Continue statin Hypothyroidism Continue levothyroxine Bipolar disorder Continue home mood stabilizers Chronic constipation Patient on significant bowel regimen, continue DNR/DNI DVT Prophylaxis: Therapeutic Lovenox Pt will require continued hospitalization due to-awaiting lung ca workup ,pt eval ( in am ,tried today but was sleepy post procedure). Quality Stroke Does the patient have a stroke diagnosis?: No VTE Prior VTE?: No VTE Risk Level:: Medical - moderate - high VTE Device Contraindication: Treatment Not Indicated VTE Drug Contraindication: N/A - Med Ordered
[2024-02-07] MEDS: Norepinephrine Bitartrate/D5W 8 MG/250 ML PLAST..BAG 9.46 MG IVCONT (09:48)
[2024-02-07] MEDS: propofoL 200 MG/20 ML VIAL 100 MG IVPUSH (09:52)
[2024-02-07] MEDS: propofoL 1,000 MG/100 ML VIAL 18.16 MG IVCONT (09:55)
[2024-02-07 10:36] LABS: ABG Base Excess 7.6 mmol/L; ABG HCO3 35 mmol/L (22-26); ABG pCO2 65 mmHg (32-45); ABG pH 7.34 (7.35-7.45); ABG pO2 78 mmHg (83-108)
[2024-02-07 11:26] LABS: Glucose, Whole Blood 167 mg/dL (60-115)
--- NOTE | 2024-02-07 11:36 | PC.RT ---
Pt intubated by Dr Lowery pre bedside EBUS. st att 8.0 ett found too large and switched to 7.5 ETT. Pt was int under direct view via glidescope and on one att without issue. Pt was hyperoxygenated previous to bronch and charli procedure well. Nursing present.
--- NOTE | 2024-02-07 12:06 | P.BOP_ITS ---
Brief Operative Note Date of Service: 02/07/24 Pre-op diagnosis: Lung cancer Post-op diagnosis: same Procedure: Patient brought to the intensive care unit. Informed consent for procedure and intubation obtained. Patient intubated with 7.5 cuffed ET tube under glide scope guidance. Thereafter endobronchial ultrasound equipped bronchoscope was advanced through the ET tube to 4R station and endobronchial ultrasound-guided biopsy of station 4R obtain with 5 separate passes. Sampled aspirate evaluated by on-site pathologist with identification of lymphoid cells and was sent for further pathologic/cytologic testing. Patient extubated uneventfully after the procedure and now being transferred back to medical floor. Surgeon: Xander Lowery MD Anesthesia: GETA Was an Diesel Tractor Engine Mechanic used for this Procedure?: No Estimated blood loss (mL): 0 Condition: stable Disposition: floor
--- NOTE | 2024-02-07 13:49 | PC.NURSE ---
Shift eval for ICU transfer: Plan to come down to ICU, intubate patient, bronchoscopy with biopsy, extubate & transfer back when stable. Approx 0925 - Patient came down to ICU, room 254, report received from Verna MASSEY [phone] - Dr Lowery obtained consent. New #20g periph IV put in R lower arm via ultrasound. Patient alert and speaking small amounts, but oriented to name and place. Patient and family educated about procedure and plans. 0951 - Patient pre-oxygenated with Yordy RT at bedside with Dr Lowery. OR techs at bedside to assist with bronch 0952 - 100mg propofol IVP given 0955 - Lower dentures removed. Intubated with 7.5 ETT, @ 24cm - + color change, bilat breath sounds. Sedated with Propofol drip started, BP control with levophed drip (see MAR for titration). Restraints put on for airway safety, patient attempting to reach for ETT. 1005 - Bronch started by Dr Lowery 1017 - Dr Jorge pathologist came to bedside to assist with specimen collection. Specimens obtained & sent to lab. 1029 - ABGs collected by Yordy DOS SANTOS, results shown to Dr Lowery 1045 - Bronch complete 1053 - CXR done & viewed by Dr Lowery 1104 - Sedation vacation & vent weaning started with Dr Lowery & Yordy DOS SANTOS at bedside - Dr Lowery changing vent settings (see RT assessments for vent changes). 1159 - Patient opening eyes, tracking, following simple directions. Tolerating weaning - Order to extubate with Dr Lowery at bedside. Patient tolerated extubation, no stridor heard, managing secretions, speaking. [id number] - Patient educated about timeline for pathology results. Titrated O2 to keep O2 above 88% if possible - utilized oxymask & nasal cannula. Dysphagia screening completed - patient passed swallow eval. Order to transfer back to med-surg by Dr Lowery. 1316 - Report given to Verna MASSEY. 1325 - Patient brought up to 359 via bed.
[2024-02-07] MEDS: Acetaminophen 325 MG TABLET 650 MG PO (14:22)
[2024-02-07] MEDS: predniSONE 10 MG TABLET 30 MG PO (14:22)
[2024-02-07 16:00] LABS: Glucose, Whole Blood 252 mg/dL (60-115)
[2024-02-07 16:10] LABS: ABG Refer to POC result
[2024-02-07 17:30] LABS: Venous Blood Gas Refer to POC result
[2024-02-07 17:31] LABS: VBG Base Excess 9.8 mmol/L; VBG HCO3 34 mmol/L (22-26); VBG pCO2 45 mmHg; VBG pH 7.49 (7.32-7.43); VBG pO2 190 mmHg
[2024-02-07 20:03] LABS: Glucose, Whole Blood 283 mg/dL (60-115)
[2024-02-07] MEDS: Enoxaparin Sodium 100 MG/ML SYRINGE SUBCUT (20:14)
[2024-02-07] MEDS: Insulin Lispro 100 UNIT/ML 3 ML VIAL 6 UNIT SUBCUT (20:15)
[2024-02-07] MEDS: Insulin Glargine,Hum.rec.anlog 100 UNIT/ML 10 ML VIAL 30 UNIT SUBCUT (20:15)
[2024-02-07] MEDS: Divalproex Sodium ER 250 MG TAB.ER.24H PO (20:19)
[2024-02-07] MEDS: Atorvastatin Calcium 40 MG TABLET PO (20:19)
[2024-02-08] MEDS: ondansetron HCL 4 MG/2 ML VIAL IVPUSH (00:22)
[2024-02-08] MEDS: Levothyroxine Sodium 100 MCG TABLET PO (03:22)
[2024-02-08] MEDS: Omeprazole 20 MG CAPSULE.DR PO (03:22)
[2024-02-08 03:24] VITALS: BP 112/62; PULSE 59; RESP 18; TEMP 36.2; O2SAT 95
--- NOTE | 2024-02-08 04:13 | PC.NURSE ---
Pt AOx2, lethargic, did have bronchoscopy w/biopsy performed where propofol was administered. This pt is known to this RN from previous admit. She can refuse care and medications at times. When family is bedside, pt is more cooperative w/taking medications and w/care. Daughter bedside for most of this RN's shift. Approx 0020 pt began to dry heave, then vomited a small amount (per daughter, she threw emesis bag away before this RN could look). Zofran administered w/good effect. Pt remains on 2L O2 via nc. Call butt within reach.
[2024-02-08 07:23] VITALS: BP 128/61; PULSE 62; RESP 18; TEMP 36.2; O2SAT 92
[2024-02-08 07:35] LABS: Glucose, Whole Blood 187 mg/dL (60-115)
[2024-02-08] MEDS: Insulin Lispro 100 UNIT/ML 3 ML VIAL 6 UNIT SUBCUT ×4 (07:54→21:07)
[2024-02-08] MEDS: Insulin Lispro 100 UNIT/ML 3 ML VIAL SUBCUT ×4 (07:54→21:06)
[2024-02-08 07:55] VITALS: BP 128/61; PULSE 62
[2024-02-08] MEDS: Metoprolol Succinate ER 25 MG TAB.ER.24H PO ×2 (07:55→21:07)
[2024-02-08] MEDS: busPIRone HCl 5 MG TABLET PO ×2 (07:55→21:07)
[2024-02-08] MEDS: predniSONE 10 MG TABLET 30 MG PO (07:55)
[2024-02-08] MEDS: Ascorbic Acid 500 MG TABLET PO (07:55)
[2024-02-08] MEDS: risperiDONE 2 MG TABLET PO ×2 (07:55→21:07)
[2024-02-08] MEDS: Enoxaparin Sodium 100 MG/ML SYRINGE SUBCUT ×2 (07:55→18:11)
[2024-02-08] MEDS: ARIPiprazole 5 MG TABLET PO (07:55)
[2024-02-08] MEDS: Divalproex Sodium ER 500 MG TAB.ER.24H PO ×2 (07:56→21:07)
[2024-02-08] MEDS: oxyBUTYnin chloride ER 5 MG TAB.ER.24 PO (07:56)
[2024-02-08] MEDS: Cholecalciferol (Vitamin D3) 25 MCG TABLET PO (07:56)
[2024-02-08] MEDS: Gabapentin 100 MG CAPSULE PO ×3 (07:56→21:07)
[2024-02-08] MEDS: Ferrous Sulfate 324 MG TABLET.DR PO (07:57)
[2024-02-08] MEDS: 0.9 % Sodium Chloride Flush 3 ML SYRINGE IVFLUSH ×3 (08:09→21:07)
[2024-02-08 10:51] VITALS: O2SAT 91
[2024-02-08 11:01] LABS: Glucose, Whole Blood 285 mg/dL (60-115)
--- NOTE | 2024-02-08 12:37 | P.PNIM_ITS ---
Subjective Subjective Date of Service: 02/08/24 Interval History: copd /lung mass Review of Systems sob seems improving s/p lung biopsy Physical Exam 2 Vital Signs: Vital Signs: Last Vital Signs Temp 97.1 F 02/08/24 07:23 Pulse 62 02/08/24 07:55 Resp 18 02/08/24 07:23 BP 128/61 02/08/24 07:55 Pulse Ox 91 L 02/08/24 10:51 O2 Del Method Nasal Cannula 02/08/24 07:23 O2 Flow Rate 2 02/08/24 07:23 FiO2 60 02/07/24 11:14 Oxygen Flow Rate 14 01/31/24 13:23 BMI result Body Mass Index 33.8 General: more awake this afternoon Resp: CTA bilaterally CVS: S1, S2, RRR GI: +BS, NT, no distention Skin: Warm, dry Neuro: Cranial nerves II-XII grossly intact bilaterally. Motor grossly intact bilaterally Extremities: No edema Psych: Appropriate affect Objective Data Active Medications Acetaminophen (Acetaminophen 325 Mg Tablet) 650 mg PO Q6H PRN PRN Reason: Pain, Mild (Pain Scale 1-3), fever or headache Last Admin: 02/07/24 14:22 Dose: 650 mg Documented By: RYNE Acetaminophen (Acetaminophen Supp 650 Mg Supp.Rect) 650 mg [place] Q4H PRN PRN Reason: Fever Or Pain Aripiprazole (Aripiprazole 5 Mg Tablet) 5 mg PO DAILY [facility] Last Admin: 02/08/24 07:55 Dose: 5 mg Documented By: YAKELIN Ascorbic Acid (Ascorbic Acid 500 Mg Tablet) 500 mg PO DAILY [facility] Last Admin: 02/08/24 07:55 Dose: 500 mg Documented By: YAKELIN Atorvastatin Calcium (Atorvastatin Calcium 40 Mg Tablet) 40 mg PO BEDTIME [facility] Last Admin: 02/07/24 20:19 Dose: 40 mg Documented By: WILL Bisacodyl (Bisacodyl 10 Mg Supp.Rect) 10 mg OR DAILY PRN PRN Reason: Constipation Buspirone HCl (Buspirone Hcl 5 Mg Tablet) 5 mg PO BID [facility] Last Admin: 02/08/24 07:55 Dose: 5 mg Documented By: YAKELIN Calcium Carbonate (Calcium Carbonate 750 Mg Tab.Chew) 750 mg PO Q4H PRN PRN Reason: Heartburn Divalproex Sodium (Divalproex Sodium Er 250 Mg Tab.Er.24h) 250 mg PO BEDTIME [facility] Last Admin: 02/07/24 20:19 Dose: 250 mg Documented By: WILL Divalproex Sodium (Divalproex Sodium Er 500 Mg Tab.Er.24h) 500 mg PO BID [facility] Last Admin: 02/08/24 07:56 Dose: 500 mg Documented By: YAKELIN Enoxaparin Sodium (Enoxaparin Sodium 100 Mg/Ml Syringe) 100 mg SUBCUT Q12H [facility] Last Admin: 02/08/24 07:55 Dose: 100 mg Documented By: YAKELIN Ferrous Sulfate (Ferrous Sulfate 324 Mg Tablet.Dr) 324 mg PO DAILY [facility] Last Admin: 02/08/24 07:57 Dose: 324 mg Documented By: YAKELIN Gabapentin (Gabapentin 100 Mg Capsule) 100 mg PO TID [facility] Last Admin: 02/08/24 07:56 Dose: 100 mg Documented By: YAKELIN Glucose (Glucose Gel 15 Gm Gel..Gram.) 15 gm PO Q15M PRN; Protocol PRN Reason: per Hypoglycemia Standing Ord. Dextrose (D10) 250 mls @ 750 mls/hr IV Q15M PRN; Protocol PRN Reason: per Hypoglycemia Standing Ord. Insulin Glargine (Insulin Glargine,Hum.Rec.Anlog 100 Unit/Ml 10 Ml Vial) 30 unit SUBCUT BEDTIME [facility] Last Admin: 02/07/24 20:15 Dose: 30 unit Documented By: WILL Insulin Human Lispro (Insulin Lispro 100 Unit/Ml 3 Ml Vial) 0 unit SUBCUT QIDACHS [facility]; Protocol Last Admin: 02/08/24 11:46 Dose: 6 unit Documented By: YAKELIN Insulin Human Lispro (Insulin Lispro 100 Unit/Ml 3 Ml Vial) 6 unit SUBCUT QIDACHS [facility] Last Admin: 02/08/24 11:47 Dose: 6 unit Documented By: YAKELIN Levothyroxine Sodium (Levothyroxine Sodium 100 Mcg Tablet) 100 mcg PO DAILY@0600 [facility] Last Admin: 02/08/24 03:22 Dose: 100 mcg Documented By: WILL Loperamide HCl (Loperamide Hcl 2 Mg Capsule) 2 mg PO Q4H PRN PRN Reason: Diarrhea Magnesium Hydroxide (Milk Of Magnesia 30 Ml Oral.Susp) 30 ml PO DAILY PRN PRN Reason: Constipation Melatonin (Melatonin 3 Mg Tablet) 6 mg PO BEDTIME PRN PRN Reason: Insomnia Metoprolol Succinate (Metoprolol Succinate Er 25 Mg Tab.Er.24h) 25 mg PO BID [facility]; Protocol Last Admin: 02/08/24 07:55 Dose: 25 mg Documented By: YAKELIN Nystatin (Nystatin Powder 15 Gm Bottle) 1 appl TOPICAL BID [facility]; Protocol Last Admin: 02/08/24 10:38 Dose: Not Given Documented By: YAKELIN Non-Admin Reason: Patient Asleep Omeprazole (Omeprazole 20 Mg Capsule.Dr) 20 mg PO DAILY@0630 [facility] Last Admin: 02/08/24 03:22 Dose: 20 mg Documented By: WILL Ondansetron HCl (Ondansetron Hcl 4 Mg/2 Ml Vial) 4 mg IVPUSH Q8H PRN PRN Reason: Nausea and Vomiting Last Admin: 02/08/24 00:22 Dose: 4 mg Documented By: WILL Oxybutynin Chloride (Oxybutynin Chloride Er 5 Mg Tab.Er.24) 5 mg PO DAILY [facility] Last Admin: 02/08/24 07:56 Dose: 5 mg Documented By: YAKELIN Prednisone (Prednisone 10 Mg Tablet) 30 mg PO DAILY [facility] Last Admin: 02/08/24 07:55 Dose: 30 mg Documented By: YAKELIN Risperidone (Risperidone 2 Mg Tablet) 2 mg PO BID [facility] Last Admin: 02/08/24 07:55 Dose: 2 mg Documented By: YAKELIN Simethicone (Simethicone 80 Mg Tab.Chew) 80 mg PO QIDWMHS PRN PRN Reason: Gas Sodium Chloride (0.9 % Sodium Chloride Flush 3 Ml Syringe) 3 ml IVFLUSH QSHIFT [facility] Last Admin: 02/08/24 08:09 Dose: 3 ml Documented By: YAKELIN Vitamin D (Cholecalciferol (Vitamin D3) 25 Mcg Tablet) 25 mcg PO DAILY [facility] Last Admin: 02/08/24 07:56 Dose: 25 mcg Documented By: YAKELIN Labs 02/02/24 07:08 02/04/24 05:33 Labs: Laboratory Results - last 24 hr 08/23/24 08/23/24 08/23/24 15:28 17:28 19:59 VBG pH 7.49 H VBG pCO2 45 VBG pO2 190 VBG HCO3 34 H VBG O2 Saturation 99.0 VBG Base Excess 9.8 POC Glucose 252 H 283 H 02/08/24 02/08/24 07:26 10:54 VBG pH VBG pCO2 VBG pO2 VBG HCO3 VBG O2 Saturation VBG Base Excess POC Glucose 187 H 285 H Assessment and Plan (1) COPD exacerbation: Status: Acute (2) Obstructive lung disease: Status: Acute Assessment and Plan: 78-year-old female with a PMH significant for?paroxysmal AFib on anticoagulation HLD, insulin-dependent type 2 diabetes, hypothyroidism, former tobacco user, likely COPD, recently diagnosed right lung mass, and bipolar disorder who presents to the ED from [facility]?for increasing shortness a breath and acute on chronic hypoxia. Was admitted to the hospital for treatment and further evaluation of acute hypoxic respiratory failure in the setting of exacerbation of obstructive lung disease in a patient with likely metastatic lung cancer. Acute hypoxic respiratory failure in the setting of COPD with acute exacerbation Continue DuoNebs,prednisone taper Titrate supplemental O2 with goal of 92 New right lung mass With likely mediastinal and liver metastasis Any additional imaging or workup -- EBUS-s/p lung biopsy, PET scan outpatient after discharge. Hospice consult Diarrhea improved. Paroxysmal AFib Patient previously on Eliquis which was transitioned to therapeutic Lovenox in anticipation of imminent lung biopsy Daughter/HCP now questions whether or when lung biopsy will be done Continue therapeutic Lovenox for now, though consider switching back to Eliquis depending on when/if lung biopsy will be done Insulin-dependent type 2 diabetes Sliding-scale insulin, Lantus Diabetic diet HLD Continue statin Hypothyroidism Continue levothyroxine Bipolar disorder Continue home mood stabilizers Chronic constipation Patient on significant bowel regimen, continue DNR/DNI DVT Prophylaxis: Therapeutic Lovenox Pt will require continued hospitalization due to-awaiting placement ,pet scan will be scheduled outpatient as per pulm. Quality Stroke Does the patient have a stroke diagnosis?: No VTE Prior VTE?: No VTE Risk Level:: Medical - moderate - high VTE Device Contraindication: Treatment Not Indicated VTE Drug Contraindication: N/A - Med Ordered
[2024-02-08 15:18] VITALS: BP 117/60; PULSE 65; RESP 16; TEMP 36.2; O2SAT 92
[2024-02-08 16:05] LABS: Glucose, Whole Blood 323 mg/dL (60-115)
[2024-02-08] MEDS: Acetaminophen 325 MG TABLET 650 MG PO (18:35)
[2024-02-08 20:00] VITALS: BP 108/56; PULSE 57; RESP 18; TEMP 36.3; O2SAT 96
[2024-02-08 20:36] LABS: Glucose, Whole Blood 240 mg/dL (60-115)
[2024-02-08] MEDS: Insulin Glargine,Hum.rec.anlog 100 UNIT/ML 10 ML VIAL 30 UNIT SUBCUT (21:06)
[2024-02-08] MEDS: Divalproex Sodium ER 250 MG TAB.ER.24H PO (21:07)
[2024-02-08] MEDS: Atorvastatin Calcium 40 MG TABLET PO (21:07)
[2024-02-09 04:00] VITALS: BP 106/55; PULSE 57; RESP 18; TEMP 36.2; O2SAT 93
[2024-02-09] MEDS: Omeprazole 20 MG CAPSULE.DR PO (06:01)
[2024-02-09] MEDS: Levothyroxine Sodium 100 MCG TABLET PO (06:01)
[2024-02-09] MEDS: Acetaminophen 325 MG TABLET 650 MG PO (06:05)
[2024-02-09 07:33] VITALS: BP 127/58; PULSE 58; RESP 20; TEMP 36.2; O2SAT 92
[2024-02-09 07:41] LABS: Glucose, Whole Blood 85 mg/dL (60-115)
[2024-02-09] MEDS: Insulin Lispro 100 UNIT/ML 3 ML VIAL 6 UNIT SUBCUT ×4 (08:04→20:01)
[2024-02-09] MEDS: Enoxaparin Sodium 100 MG/ML SYRINGE SUBCUT ×2 (08:04→18:15)
[2024-02-09 09:23] VITALS: BP 127/58
[2024-02-09] MEDS: Metoprolol Succinate ER 25 MG TAB.ER.24H PO ×2 (09:23→19:59)
[2024-02-09] MEDS: risperiDONE 2 MG TABLET PO ×2 (09:23→19:59)
[2024-02-09] MEDS: Ascorbic Acid 500 MG TABLET PO (09:24)
[2024-02-09] MEDS: Ferrous Sulfate 324 MG TABLET.DR PO (09:24)
[2024-02-09] MEDS: Cholecalciferol (Vitamin D3) 25 MCG TABLET PO (09:24)
[2024-02-09] MEDS: ARIPiprazole 5 MG TABLET PO (09:24)
[2024-02-09] MEDS: oxyBUTYnin chloride ER 5 MG TAB.ER.24 PO (09:24)
[2024-02-09] MEDS: predniSONE 10 MG TABLET 30 MG PO (09:24)
[2024-02-09] MEDS: busPIRone HCl 5 MG TABLET PO ×2 (09:24→19:59)
[2024-02-09] MEDS: Gabapentin 100 MG CAPSULE PO ×3 (09:24→19:59)
[2024-02-09] MEDS: Divalproex Sodium ER 500 MG TAB.ER.24H PO ×2 (09:24→19:59)
[2024-02-09] MEDS: 0.9 % Sodium Chloride Flush 3 ML SYRINGE IVFLUSH ×2 (09:25→16:20)
[2024-02-09] MEDS: Nystatin Powder 15 GM BOTTLE 1 APPL TOPICAL ×2 (09:32→19:59)
[2024-02-09 11:11] LABS: Glucose, Whole Blood 125 mg/dL (60-115)
--- NOTE | 2024-02-09 11:35 | HO.PM.IMPN ---
Subjective Subjective Date of Service: 02/09/24 Interval History: copd Review of Systems sob improved denies any new c/o Physical Exam Vital Signs: Vital Signs: Last Vital Signs Temp 97.1 F 02/09/24 07:33 Pulse 58 02/09/24 07:33 Resp 20 02/09/24 07:33 BP 127/58 L 02/09/24 09:23 Pulse Ox 92 02/09/24 07:33 O2 Del Method Nasal Cannula 02/09/24 07:33 O2 Flow Rate 2 02/09/24 07:33 FiO2 60 02/07/24 11:14 Oxygen Flow Rate 14 01/31/24 13:23 BMI result Body Mass Index 33.8 General: more awake this afternoon Resp: CTA bilaterally CVS: S1, S2, RRR GI: +BS, NT, no distention Skin: Warm, dry Neuro: Cranial nerves II-XII grossly intact bilaterally. Motor grossly intact bilaterally Extremities: No edema Psych: Appropriate affect Objective Data Active Medications Acetaminophen (Acetaminophen 325 Mg Tablet) 650 mg PO Q6H PRN PRN Reason: Pain, Mild (Pain Scale 1-3), fever or headache Last Admin: 02/09/24 06:05 Dose: 650 mg Documented By: JE Acetaminophen (Acetaminophen Supp 650 Mg Supp.Rect) 650 mg [place] Q4H PRN PRN Reason: Fever Or Pain Aripiprazole (Aripiprazole 5 Mg Tablet) 5 mg PO DAILY [facility] Last Admin: 02/09/24 09:24 Dose: 5 mg Documented By: YAKELIN Ascorbic Acid (Ascorbic Acid 500 Mg Tablet) 500 mg PO DAILY [facility] Last Admin: 02/09/24 09:24 Dose: 500 mg Documented By: YAKELIN Atorvastatin Calcium (Atorvastatin Calcium 40 Mg Tablet) 40 mg PO BEDTIME [facility] Last Admin: 02/08/24 21:07 Dose: 40 mg Documented By: WILL Bisacodyl (Bisacodyl 10 Mg Supp.Rect) 10 mg [place] DAILY PRN PRN Reason: Constipation Buspirone HCl (Buspirone Hcl 5 Mg Tablet) 5 mg PO BID [facility] Last Admin: 02/09/24 09:24 Dose: 5 mg Documented By: YAKELIN Calcium Carbonate (Calcium Carbonate 750 Mg Tab.Chew) 750 mg PO Q4H PRN PRN Reason: Heartburn Divalproex Sodium (Divalproex Sodium Er 250 Mg Tab.Er.24h) 250 mg PO BEDTIME [facility] Last Admin: 02/08/24 21:07 Dose: 250 mg Documented By: WILL Divalproex Sodium (Divalproex Sodium Er 500 Mg Tab.Er.24h) 500 mg PO BID [facility] Last Admin: 02/09/24 09:24 Dose: 500 mg Documented By: YAKELIN Enoxaparin Sodium (Enoxaparin Sodium 100 Mg/Ml Syringe) 100 mg SUBCUT Q12H [facility] Last Admin: 02/09/24 08:04 Dose: 100 mg Documented By: YAKELIN Ferrous Sulfate (Ferrous Sulfate 324 Mg Tablet.Dr) 324 mg PO DAILY [facility] Last Admin: 02/09/24 09:24 Dose: 324 mg Documented By: YAKELIN Gabapentin (Gabapentin 100 Mg Capsule) 100 mg PO TID [facility] Last Admin: 02/09/24 09:24 Dose: 100 mg Documented By: YAKELIN Glucose (Glucose Gel 15 Gm Gel..Gram.) 15 gm PO Q15M PRN; Protocol PRN Reason: per Hypoglycemia Standing Ord. Dextrose (D10) 250 mls @ 750 mls/hr IV Q15M PRN; Protocol PRN Reason: per Hypoglycemia Standing Ord. Insulin Glargine (Insulin Glargine,Hum.Rec.Anlog 100 Unit/Ml 10 Ml Vial) 30 unit SUBCUT BEDTIME [facility] Last Admin: 02/08/24 21:06 Dose: 30 unit Documented By: WILL Insulin Human Lispro (Insulin Lispro 100 Unit/Ml 3 Ml Vial) 0 unit SUBCUT QIDACHS [facility]; Protocol Last Admin: 02/09/24 11:14 Dose: Not Given Documented By: YAKELIN Non-Admin Reason: No Insulin Coverage Insulin Human Lispro (Insulin Lispro 100 Unit/Ml 3 Ml Vial) 6 unit SUBCUT QIDACHS [facility] Last Admin: 02/09/24 08:04 Dose: 6 unit Documented By: YAKELIN Levothyroxine Sodium (Levothyroxine Sodium 100 Mcg Tablet) 100 mcg PO DAILY@0600 [facility] Last Admin: 02/09/24 06:01 Dose: 100 mcg Documented By: JE Loperamide HCl (Loperamide Hcl 2 Mg Capsule) 2 mg PO Q4H PRN PRN Reason: Diarrhea Magnesium Hydroxide (Milk Of Magnesia 30 Ml Oral.Susp) 30 ml PO DAILY PRN PRN Reason: Constipation Melatonin (Melatonin 3 Mg Tablet) 6 mg PO BEDTIME PRN PRN Reason: Insomnia Metoprolol Succinate (Metoprolol Succinate Er 25 Mg Tab.Er.24h) 25 mg PO BID [facility]; Protocol Last Admin: 02/09/24 09:23 Dose: 25 mg Documented By: YAKELIN Nystatin (Nystatin Powder 15 Gm Bottle) 1 appl TOPICAL BID [facility]; Protocol Last Admin: 02/09/24 09:32 Dose: 1 appl Documented By: YAKELIN Omeprazole (Omeprazole 20 Mg Capsule.Dr) 20 mg PO DAILY@0630 [facility] Last Admin: 02/09/24 06:01 Dose: 20 mg Documented By: JE Ondansetron HCl (Ondansetron Hcl 4 Mg/2 Ml Vial) 4 mg IVPUSH Q8H PRN PRN Reason: Nausea and Vomiting Last Admin: 02/08/24 00:22 Dose: 4 mg Documented By: WILL Oxybutynin Chloride (Oxybutynin Chloride Er 5 Mg Tab.Er.24) 5 mg PO DAILY [facility] Last Admin: 02/09/24 09:24 Dose: 5 mg Documented By: YAKELIN Prednisone (Prednisone 10 Mg Tablet) 30 mg PO DAILY [facility] Last Admin: 02/09/24 09:24 Dose: 30 mg Documented By: YAKELIN Risperidone (Risperidone 2 Mg Tablet) 2 mg PO BID [facility] Last Admin: 02/09/24 09:23 Dose: 2 mg Documented By: YAKELIN Simethicone (Simethicone 80 Mg Tab.Chew) 80 mg PO QIDWMHS PRN PRN Reason: Gas Sodium Chloride (0.9 % Sodium Chloride Flush 3 Ml Syringe) 3 ml IVFLUSH QSHIFT [facility] Last Admin: 02/09/24 09:25 Dose: 3 ml Documented By: YAKELIN Vitamin D (Cholecalciferol (Vitamin D3) 25 Mcg Tablet) 25 mcg PO DAILY [facility] Last Admin: 02/09/24 09:24 Dose: 25 mcg Documented By: YAKELIN Labs 02/02/24 07:08 02/04/24 05:33 Labs: Laboratory Results - last 24 hr 02/08/24 02/08/24 02/09/24 16:02 20:31 07:36 POC Glucose 323 H 240 H 85 02/09/24 11:07 POC Glucose 125 H Assessment and Plan (1) COPD exacerbation: Status: Acute Assessment and Plan: 78-year-old female with a PMH significant for?paroxysmal AFib on anticoagulation HLD, insulin-dependent type 2 diabetes, hypothyroidism, former tobacco user, likely COPD, recently diagnosed right lung mass, and bipolar disorder who presents to the ED from [facility]?for increasing shortness a breath and acute on chronic hypoxia. Was admitted to the hospital for treatment and further evaluation of acute hypoxic respiratory failure in the setting of exacerbation of obstructive lung disease in a patient with likely metastatic lung cancer. Acute hypoxic respiratory failure in the setting of COPD with acute exacerbation Continue DuoNebs,prednisone taper Titrate supplemental O2 with goal of 92 New right lung mass With likely mediastinal and liver metastasis Any additional imaging or workup -- EBUS-s/p lung biopsy, PET scan outpatient after discharge. Hospice consult Diarrhea improved. Paroxysmal AFib Patient previously on Eliquis which was transitioned to therapeutic Lovenox in anticipation of imminent lung biopsy Daughter/HCP now questions whether or when lung biopsy will be done Continue therapeutic Lovenox for now, though consider switching back to Eliquis depending on when/if lung biopsy will be done Insulin-dependent type 2 diabetes Sliding-scale insulin, Lantus Diabetic diet HLD Continue statin Hypothyroidism Continue levothyroxine Bipolar disorder Continue home mood stabilizers Chronic constipation Patient on significant bowel regimen, continue DNR/DNI DVT Prophylaxis: Therapeutic Lovenox Pt will require continued hospitalization due to-awaiting placement ,pet scan will be scheduled outpatient as per pulm. Quality Stroke Does the patient have a stroke diagnosis?: No VTE Prior VTE?: No VTE Risk Level:: Medical - moderate - high VTE Device Contraindication: Treatment Not Indicated VTE Drug Contraindication: N/A - Med Ordered
[2024-02-09 15:36] VITALS: BP 108/62; PULSE 62; RESP 16; TEMP 36.2; O2SAT 92
[2024-02-09 16:10] LABS: Glucose, Whole Blood 250 mg/dL (60-115)
[2024-02-09] MEDS: Insulin Lispro 100 UNIT/ML 3 ML VIAL SUBCUT ×2 (16:19→20:01)
[2024-02-09 19:13] VITALS: BP 139/62; PULSE 63; RESP 18; TEMP 36; O2SAT 93
[2024-02-09 19:55] LABS: Glucose, Whole Blood 279 mg/dL (60-115)
[2024-02-09] MEDS: Atorvastatin Calcium 40 MG TABLET PO (19:59)
[2024-02-09] MEDS: Divalproex Sodium ER 250 MG TAB.ER.24H PO (19:59)
[2024-02-09] MEDS: Insulin Glargine,Hum.rec.anlog 100 UNIT/ML 10 ML VIAL 30 UNIT SUBCUT (20:00)
[2024-02-10 03:43] VITALS: BP 111/61; PULSE 60; RESP 20; TEMP 36.5; O2SAT 97
[2024-02-10] MEDS: Levothyroxine Sodium 100 MCG TABLET PO (05:59)
[2024-02-10] MEDS: Omeprazole 20 MG CAPSULE.DR PO (05:59)
[2024-02-10 06:47] VITALS: BP 149/72; PULSE 68; RESP 16; TEMP 36.6; O2SAT 94
[2024-02-10 07:09] LABS: Glucose, Whole Blood 138 mg/dL (60-115)
[2024-02-10] MEDS: Enoxaparin Sodium 100 MG/ML SYRINGE SUBCUT ×2 (08:54→19:34)
[2024-02-10] MEDS: Insulin Lispro 100 UNIT/ML 3 ML VIAL 6 UNIT SUBCUT ×4 (08:54→20:27)
[2024-02-10 08:55] VITALS: BP 149/72
[2024-02-10] MEDS: busPIRone HCl 5 MG TABLET PO ×2 (08:55→19:35)
[2024-02-10] MEDS: predniSONE 10 MG TABLET 30 MG PO (08:55)
[2024-02-10] MEDS: Ferrous Sulfate 324 MG TABLET.DR PO (08:55)
[2024-02-10] MEDS: Metoprolol Succinate ER 25 MG TAB.ER.24H PO ×2 (08:55→19:34)
[2024-02-10] MEDS: risperiDONE 2 MG TABLET PO ×2 (08:56→19:35)
[2024-02-10] MEDS: oxyBUTYnin chloride ER 5 MG TAB.ER.24 PO (08:56)
[2024-02-10] MEDS: Gabapentin 100 MG CAPSULE PO ×3 (08:56→19:35)
[2024-02-10] MEDS: Cholecalciferol (Vitamin D3) 25 MCG TABLET PO (08:56)
[2024-02-10] MEDS: ARIPiprazole 5 MG TABLET PO (08:56)
[2024-02-10] MEDS: Ascorbic Acid 500 MG TABLET PO (08:56)
[2024-02-10] MEDS: Divalproex Sodium ER 500 MG TAB.ER.24H PO ×2 (08:56→19:34)
[2024-02-10] MEDS: 0.9 % Sodium Chloride Flush 3 ML SYRINGE IVFLUSH ×2 (08:56→22:58)
[2024-02-10] MEDS: Nystatin Powder 15 GM BOTTLE 1 APPL TOPICAL ×2 (08:57→19:39)
[2024-02-10 11:18] LABS: Glucose, Whole Blood 249 mg/dL (60-115)
[2024-02-10] MEDS: Insulin Lispro 100 UNIT/ML 3 ML VIAL SUBCUT ×3 (11:45→20:27)
[2024-02-10] MEDS: Acetaminophen 325 MG TABLET 650 MG PO ×2 (14:00→19:34)
--- NOTE | 2024-02-10 14:56 | P.PNIM_ITS ---
Subjective Subjective Date of Service: 02/10/24 Interval History: copd Review of Systems sob improved denies any new c/o Physical Exam 2 Vital Signs: Vital Signs: Last Vital Signs Temp 97.9 F 02/10/24 06:47 Pulse 68 02/10/24 06:47 Resp 16 02/10/24 06:47 BP 149/72 H 02/10/24 08:55 Pulse Ox 94 02/10/24 06:47 O2 Del Method Nasal Cannula 02/10/24 06:47 O2 Flow Rate 2 02/10/24 06:47 FiO2 60 02/07/24 11:14 Oxygen Flow Rate 14 01/31/24 13:23 BMI result Body Mass Index 33.8 General: more awake this afternoon Resp: CTA bilaterally CVS: S1, S2, RRR GI: +BS, NT, no distention Skin: Warm, dry Neuro: Cranial nerves II-XII grossly intact bilaterally. Motor grossly intact bilaterally Extremities: No edema Psych: Appropriate affec Objective Data Active Medications Acetaminophen (Acetaminophen 325 Mg Tablet) 650 mg PO Q6H PRN PRN Reason: Pain, Mild (Pain Scale 1-3), fever or headache Last Admin: 02/10/24 14:00 Dose: 650 mg Documented By: YAKELIN Acetaminophen (Acetaminophen Supp 650 Mg Supp.Rect) 650 mg [place] Q4H PRN PRN Reason: Fever Or Pain Aripiprazole (Aripiprazole 5 Mg Tablet) 5 mg PO DAILY [facility] Last Admin: 02/10/24 08:56 Dose: 5 mg Documented By: YAKELIN Ascorbic Acid (Ascorbic Acid 500 Mg Tablet) 500 mg PO DAILY [facility] Last Admin: 02/10/24 08:56 Dose: 500 mg Documented By: YAKELIN Atorvastatin Calcium (Atorvastatin Calcium 40 Mg Tablet) 40 mg PO BEDTIME [facility] Last Admin: 02/09/24 19:59 Dose: 40 mg Documented By: IRVING Bisacodyl (Bisacodyl 10 Mg Supp.Rect) 10 mg [place] DAILY PRN PRN Reason: Constipation Buspirone HCl (Buspirone Hcl 5 Mg Tablet) 5 mg PO BID [facility] Last Admin: 02/10/24 08:55 Dose: 5 mg Documented By: YAKELIN Calcium Carbonate (Calcium Carbonate 750 Mg Tab.Chew) 750 mg PO Q4H PRN PRN Reason: Heartburn Divalproex Sodium (Divalproex Sodium Er 250 Mg Tab.Er.24h) 250 mg PO BEDTIME [facility] Last Admin: 02/09/24 19:59 Dose: 250 mg Documented By: IRVING Divalproex Sodium (Divalproex Sodium Er 500 Mg Tab.Er.24h) 500 mg PO BID [facility] Last Admin: 02/10/24 08:56 Dose: 500 mg Documented By: YAKELIN Enoxaparin Sodium (Enoxaparin Sodium 100 Mg/Ml Syringe) 100 mg SUBCUT Q12H [facility] Last Admin: 02/10/24 08:54 Dose: 100 mg Documented By: YAKELIN Ferrous Sulfate (Ferrous Sulfate 324 Mg Tablet.Dr) 324 mg PO DAILY [facility] Last Admin: 02/10/24 08:55 Dose: 324 mg Documented By: YAKELIN Gabapentin (Gabapentin 100 Mg Capsule) 100 mg PO TID [facility] Last Admin: 02/10/24 14:00 Dose: 100 mg Documented By: YAKELIN Glucose (Glucose Gel 15 Gm Gel..Gram.) 15 gm PO Q15M PRN; Protocol PRN Reason: per Hypoglycemia Standing Ord. Dextrose (D10) 250 mls @ 750 mls/hr IV Q15M PRN; Protocol PRN Reason: per Hypoglycemia Standing Ord. Insulin Glargine (Insulin Glargine,Hum.Rec.Anlog 100 Unit/Ml 10 Ml Vial) 30 unit SUBCUT BEDTIME [facility] Last Admin: 02/09/24 20:00 Dose: 30 unit Documented By: IRVING Insulin Human Lispro (Insulin Lispro 100 Unit/Ml 3 Ml Vial) 0 unit SUBCUT QIDACHS [facility]; Protocol Last Admin: 02/10/24 11:45 Dose: 4 unit Documented By: YAKELIN Insulin Human Lispro (Insulin Lispro 100 Unit/Ml 3 Ml Vial) 6 unit SUBCUT QIDACHS [facility] Last Admin: 02/10/24 11:45 Dose: 6 unit Documented By: YAKELIN Levothyroxine Sodium (Levothyroxine Sodium 100 Mcg Tablet) 100 mcg PO DAILY@0600 [facility] Last Admin: 02/10/24 05:59 Dose: 100 mcg Documented By: LEÓN Loperamide HCl (Loperamide Hcl 2 Mg Capsule) 2 mg PO Q4H PRN PRN Reason: Diarrhea Magnesium Hydroxide (Milk Of Magnesia 30 Ml Oral.Susp) 30 ml PO DAILY PRN PRN Reason: Constipation Melatonin (Melatonin 3 Mg Tablet) 6 mg PO BEDTIME PRN PRN Reason: Insomnia Metoprolol Succinate (Metoprolol Succinate Er 25 Mg Tab.Er.24h) 25 mg PO BID [facility]; Protocol Last Admin: 02/10/24 08:55 Dose: 25 mg Documented By: YAKELIN Nystatin (Nystatin Powder 15 Gm Bottle) 1 appl TOPICAL BID [facility]; Protocol Last Admin: 02/10/24 08:57 Dose: 1 appl Documented By: YAKELIN Omeprazole (Omeprazole 20 Mg Capsule.Dr) 20 mg PO DAILY@0630 [facility] Last Admin: 02/10/24 05:59 Dose: 20 mg Documented By: LEÓN Ondansetron HCl (Ondansetron Hcl 4 Mg/2 Ml Vial) 4 mg IVPUSH Q8H PRN PRN Reason: Nausea and Vomiting Last Admin: 02/08/24 00:22 Dose: 4 mg Documented By: WILL Oxybutynin Chloride (Oxybutynin Chloride Er 5 Mg Tab.Er.24) 5 mg PO DAILY [facility] Last Admin: 02/10/24 08:56 Dose: 5 mg Documented By: YAKELIN Prednisone (Prednisone 10 Mg Tablet) 30 mg PO DAILY [facility] Last Admin: 02/10/24 08:55 Dose: 30 mg Documented By: YAKELIN Risperidone (Risperidone 2 Mg Tablet) 2 mg PO BID [facility] Last Admin: 02/10/24 08:56 Dose: 2 mg Documented By: YAKELIN Simethicone (Simethicone 80 Mg Tab.Chew) 80 mg PO QIDWMHS PRN PRN Reason: Gas Sodium Chloride (0.9 % Sodium Chloride Flush 3 Ml Syringe) 3 ml IVFLUSH QSHIFT [facility] Last Admin: 02/10/24 08:56 Dose: 3 ml Documented By: YAKELIN Vitamin D (Cholecalciferol (Vitamin D3) 25 Mcg Tablet) 25 mcg PO DAILY [facility] Last Admin: 02/10/24 08:56 Dose: 25 mcg Documented By: YAKELIN Labs 02/02/24 07:08 02/04/24 05:33 Labs: Laboratory Results - last 24 hr 0802/09/24 02/09/24 11:30 16:07 19:48 POC Glucose 250 H 279 H Leuk/Lym Interpretation See Note 02/10/24 02/10/24 07:02 11:06 POC Glucose 138 H 249 H Leuk/Lym Interpretation Assessment and Plan (1) COPD exacerbation: Status: Acute Assessment and Plan: 78-year-old female with a PMH significant for?paroxysmal AFib on anticoagulation HLD, insulin-dependent type 2 diabetes, hypothyroidism, former tobacco user, likely COPD, recently diagnosed right lung mass, and bipolar disorder who presents to the ED from [facility]?for increasing shortness a breath and acute on chronic hypoxia. Was admitted to the hospital for treatment and further evaluation of acute hypoxic respiratory failure in the setting of exacerbation of obstructive lung disease in a patient with likely metastatic lung cancer. Acute hypoxic respiratory failure in the setting of COPD with acute exacerbation seems improved Continue DuoNebs,prednisone taper.,Titrate supplemental O2 with goal of 92 New right lung mass With likely mediastinal and liver metastasis Any additional imaging or workup -- EBUS-s/p lung biopsy, PET scan outpatient after discharge. Diarrhea improved. Paroxysmal AFib Patient previously on Eliquis which was transitioned to therapeutic Lovenox in anticipation of imminent lung biopsy Daughter/HCP now questions whether or when lung biopsy will be done Continue therapeutic Lovenox for now, though consider switching back to Eliquis outpatient. Insulin-dependent type 2 diabetes Sliding-scale insulin, Lantus Diabetic diet HLD Continue statin Hypothyroidism Continue levothyroxine Bipolar disorder Continue home mood stabilizers Chronic constipation Patient on significant bowel regimen, continue DNR/DNI DVT Prophylaxis: Therapeutic Lovenox Pt will require continued hospitalization due to-awaiting placement ,pet scan will be scheduled outpatient as per pulm. awaiting insurance auth/repeat Pt eval(last pt eval patient did not particiapte) Quality Stroke Does the patient have a stroke diagnosis?: No VTE Prior VTE?: No VTE Risk Level:: Medical - moderate - high VTE Device Contraindication: Treatment Not Indicated VTE Drug Contraindication: N/A - Med Ordered
[2024-02-10 15:35] VITALS: BP 117/50; PULSE 67; RESP 18; TEMP 36.2; O2SAT 92
[2024-02-10 16:07] LABS: Glucose, Whole Blood 243 mg/dL (60-115)
[2024-02-10 19:07] VITALS: BP 115/66; PULSE 62; RESP 18; TEMP 36.1; O2SAT 95
[2024-02-10] MEDS: Divalproex Sodium ER 250 MG TAB.ER.24H PO (19:35)
[2024-02-10] MEDS: Atorvastatin Calcium 40 MG TABLET PO (19:35)
[2024-02-10 20:17] LABS: Glucose, Whole Blood 246 mg/dL (60-115)
[2024-02-10] MEDS: Insulin Glargine,Hum.rec.anlog 100 UNIT/ML 10 ML VIAL 30 UNIT SUBCUT (20:28)
[2024-02-11 04:00] VITALS: BP 109/57; PULSE 55; RESP 18; TEMP 36.4; O2SAT 96
[2024-02-11] MEDS: Levothyroxine Sodium 100 MCG TABLET PO (05:28)
[2024-02-11] MEDS: Omeprazole 20 MG CAPSULE.DR PO (05:28)
[2024-02-11] MEDS: Enoxaparin Sodium 100 MG/ML SYRINGE SUBCUT ×2 (06:13→18:27)
[2024-02-11 07:13] LABS: Glucose, Whole Blood 140 mg/dL (60-115)
[2024-02-11 07:20] VITALS: BP 102/58; PULSE 55; RESP 16; TEMP 36.2; O2SAT 96
[2024-02-11] MEDS: Insulin Lispro 100 UNIT/ML 3 ML VIAL 6 UNIT SUBCUT ×4 (07:58→20:20)
[2024-02-11] MEDS: oxyBUTYnin chloride ER 5 MG TAB.ER.24 PO (08:57)
[2024-02-11] MEDS: Ferrous Sulfate 324 MG TABLET.DR PO (08:57)
[2024-02-11] MEDS: ARIPiprazole 5 MG TABLET PO (08:57)
[2024-02-11] MEDS: predniSONE 20 MG TABLET PO (08:58)
[2024-02-11] MEDS: risperiDONE 2 MG TABLET PO ×2 (08:58→20:19)
[2024-02-11] MEDS: Divalproex Sodium ER 500 MG TAB.ER.24H PO ×2 (08:58→20:20)
[2024-02-11] MEDS: Ascorbic Acid 500 MG TABLET PO (08:58)
[2024-02-11] MEDS: busPIRone HCl 5 MG TABLET PO ×2 (08:59→20:19)
[2024-02-11] MEDS: Cholecalciferol (Vitamin D3) 25 MCG TABLET PO (08:59)
[2024-02-11] MEDS: Gabapentin 100 MG CAPSULE PO ×3 (08:59→20:20)
[2024-02-11 09:01] VITALS: BP 134/60; PULSE 60
[2024-02-11] MEDS: Metoprolol Succinate ER 25 MG TAB.ER.24H PO ×2 (09:01→20:19)
[2024-02-11] MEDS: 0.9 % Sodium Chloride Flush 3 ML SYRINGE IVFLUSH ×3 (09:01→23:57)
[2024-02-11] MEDS: Nystatin Powder 15 GM BOTTLE 1 APPL TOPICAL ×2 (09:13→21:25)
[2024-02-11 11:03] LABS: Glucose, Whole Blood 229 mg/dL (60-115)
--- NOTE | 2024-02-11 11:09 | HO.PM.IMPN ---
Subjective Subjective Date of Service: 02/18/24 Interval History: copd Review of Systems sob seems improving no cough or fever s Physical Exam Vital Signs: Vital Signs: Last Vital Signs Temp 97.1 F 02/11/24 07:20 Pulse 60 02/11/24 09:01 Resp 16 02/11/24 07:20 BP 134/60 02/11/24 09:01 Pulse Ox 96 02/11/24 07:20 O2 Del Method Nasal Cannula 02/11/24 07:20 O2 Flow Rate 2 02/11/24 07:20 FiO2 60 02/07/24 11:14 Oxygen Flow Rate 14 01/31/24 13:23 BMI result Body Mass Index 33.8 General:awake ,comfortable Resp: CTA bilaterally CVS: S1, S2, RRR GI: +BS, NT, no distention Skin: Warm, dry Neuro: Cranial nerves II-XII grossly intact bilaterally. Motor grossly intact bilaterally Extremities: No edema Psych: Appropriate affec Objective Data Active Medications Acetaminophen (Acetaminophen 325 Mg Tablet) 650 mg PO Q6H PRN PRN Reason: Pain, Mild (Pain Scale 1-3), fever or headache Last Admin: 02/10/24 19:34 Dose: 650 mg Documented By: IRVING Acetaminophen (Acetaminophen Supp 650 Mg Supp.Rect) 650 mg [place] Q4H PRN PRN Reason: Fever Or Pain Aripiprazole (Aripiprazole 5 Mg Tablet) 5 mg PO DAILY [facility] Last Admin: 02/11/24 08:57 Dose: 5 mg Documented By: CALVIN Ascorbic Acid (Ascorbic Acid 500 Mg Tablet) 500 mg PO DAILY [facility] Last Admin: 02/11/24 08:58 Dose: 500 mg Documented By: CALVIN Atorvastatin Calcium (Atorvastatin Calcium 40 Mg Tablet) 40 mg PO BEDTIME [facility] Last Admin: 02/10/24 19:35 Dose: 40 mg Documented By: IRVING Bisacodyl (Bisacodyl 10 Mg Supp.Rect) 10 mg [place] DAILY PRN PRN Reason: Constipation Buspirone HCl (Buspirone Hcl 5 Mg Tablet) 5 mg PO BID [facility] Last Admin: 02/11/24 08:59 Dose: 5 mg Documented By: CALVIN Calcium Carbonate (Calcium Carbonate 750 Mg Tab.Chew) 750 mg PO Q4H PRN PRN Reason: Heartburn Divalproex Sodium (Divalproex Sodium Er 250 Mg Tab.Er.24h) 250 mg PO BEDTIME [facility] Last Admin: 02/10/24 19:35 Dose: 250 mg Documented By: IRVING Divalproex Sodium (Divalproex Sodium Er 500 Mg Tab.Er.24h) 500 mg PO BID [facility] Last Admin: 02/11/24 08:58 Dose: 500 mg Documented By: CALVIN Enoxaparin Sodium (Enoxaparin Sodium 100 Mg/Ml Syringe) 100 mg SUBCUT Q12H [facility] Last Admin: 02/11/24 06:13 Dose: 100 mg Documented By: EDILBERTO Ferrous Sulfate (Ferrous Sulfate 324 Mg Tablet.Dr) 324 mg PO DAILY [facility] Last Admin: 02/11/24 08:57 Dose: 324 mg Documented By: CALVIN Gabapentin (Gabapentin 100 Mg Capsule) 100 mg PO TID [facility] Last Admin: 02/11/24 08:59 Dose: 100 mg Documented By: CALVIN Glucose (Glucose Gel 15 Gm Gel..Gram.) 15 gm PO Q15M PRN; Protocol PRN Reason: per Hypoglycemia Standing Ord. Dextrose (D10) 250 mls @ 750 mls/hr IV Q15M PRN; Protocol PRN Reason: per Hypoglycemia Standing Ord. Insulin Glargine (Insulin Glargine,Hum.Rec.Anlog 100 Unit/Ml 10 Ml Vial) 30 unit SUBCUT BEDTIME [facility] Last Admin: 02/10/24 20:28 Dose: 30 unit Documented By: IRVING Insulin Human Lispro (Insulin Lispro 100 Unit/Ml 3 Ml Vial) 0 unit SUBCUT QIDACHS [facility]; Protocol Last Admin: 02/11/24 07:15 Dose: Not Given Documented By: CALVIN Non-Admin Reason: No Insulin Coverage Insulin Human Lispro (Insulin Lispro 100 Unit/Ml 3 Ml Vial) 6 unit SUBCUT QIDACHS [facility] Last Admin: 02/11/24 07:58 Dose: 6 unit Documented By: CALVIN Levothyroxine Sodium (Levothyroxine Sodium 100 Mcg Tablet) 100 mcg PO DAILY@0600 [facility] Last Admin: 02/11/24 05:28 Dose: 100 mcg Documented By: EDILBERTO Loperamide HCl (Loperamide Hcl 2 Mg Capsule) 2 mg PO Q4H PRN PRN Reason: Diarrhea Magnesium Hydroxide (Milk Of Magnesia 30 Ml Oral.Susp) 30 ml PO DAILY PRN PRN Reason: Constipation Melatonin (Melatonin 3 Mg Tablet) 6 mg PO BEDTIME PRN PRN Reason: Insomnia Metoprolol Succinate (Metoprolol Succinate Er 25 Mg Tab.Er.24h) 25 mg PO BID [facility]; Protocol Last Admin: 02/11/24 09:01 Dose: 25 mg Documented By: CALVIN Nystatin (Nystatin Powder 15 Gm Bottle) 1 appl TOPICAL BID [facility]; Protocol Last Admin: 02/11/24 09:13 Dose: 1 appl Documented By: CALVIN Omeprazole (Omeprazole 20 Mg Capsule.) 20 mg PO DAILY@0630 [facility] Last Admin: 02/11/24 05:28 Dose: 20 mg Documented By: EDILBERTO Ondansetron HCl (Ondansetron Hcl 4 Mg/2 Ml Vial) 4 mg IVPUSH Q8H PRN PRN Reason: Nausea and Vomiting Last Admin: 02/08/24 00:22 Dose: 4 mg Documented By: WILL Oxybutynin Chloride (Oxybutynin Chloride Er 5 Mg Tab.Er.24) 5 mg PO DAILY [facility] Last Admin: 02/11/24 08:57 Dose: 5 mg Documented By: CALVIN Prednisone (Prednisone 20 Mg Tablet) 20 mg PO DAILY [facility] Last Admin: 02/11/24 08:58 Dose: 20 mg Documented By: CALVIN Risperidone (Risperidone 2 Mg Tablet) 2 mg PO BID [facility] Last Admin: 02/11/24 08:58 Dose: 2 mg Documented By: CALVIN Simethicone (Simethicone 80 Mg Tab.Chew) 80 mg PO QIDWMHS PRN PRN Reason: Gas Sodium Chloride (0.9 % Sodium Chloride Flush 3 Ml Syringe) 3 ml IVFLUSH QSHIFT [facility] Last Admin: 02/11/24 09:01 Dose: 3 ml Documented By: CALVIN Vitamin D (Cholecalciferol (Vitamin D3) 25 Mcg Tablet) 25 mcg PO DAILY [facility] Last Admin: 02/11/24 08:59 Dose: 25 mcg Documented By: CALVIN Labs 02/13/24 06:09 02/13/24 06:10 Labs: Laboratory Results - last 24 hr 02/07/24 02/10/24 02/10/24 11:30 11:06 15:56 POC Glucose 249 H 243 H Leuk/Lym Interpretation See Note 02/10/24 02/11/24 02/11/24 20:09 07:06 10:58 POC Glucose 246 H 140 H 229 H Leuk/Lym Interpretation Assessment and Plan (1) COPD exacerbation: Status: Acute Assessment and Plan: 78-year-old female with a PMH significant for?paroxysmal AFib on anticoagulation HLD, insulin-dependent type 2 diabetes, hypothyroidism, former tobacco user, likely COPD, recently diagnosed right lung mass, and bipolar disorder who presents to the ED from [facility]?for increasing shortness a breath and acute on chronic hypoxia. Was admitted to the hospital for treatment and further evaluation of acute hypoxic respiratory failure in the setting of exacerbation of obstructive lung disease in a patient with likely metastatic lung cancer. Acute hypoxic respiratory failure in the setting of COPD with acute exacerbation seems improved Continue DuoNebs,prednisone taper.,Titrate supplemental O2 with goal of 92 New right lung mass With likely mediastinal and liver metastasis Any additional imaging or workup -- EBUS-s/p lung biopsy, PET scan outpatient after discharge. Diarrhea improved. Paroxysmal AFib Patient previously on Eliquis which was transitioned to therapeutic Lovenox in anticipation of imminent lung biopsy Daughter/HCP now questions whether or when lung biopsy will be done Continue therapeutic Lovenox for now, though consider switching back to Eliquis outpatient. Insulin-dependent type 2 diabetes Sliding-scale insulin, Lantus Diabetic diet HLD Continue statin Hypothyroidism Continue levothyroxine Bipolar disorder Continue home mood stabilizers Chronic constipation Patient on significant bowel regimen, continue DNR/DNI DVT Prophylaxis: Therapeutic Lovenox Pt will require continued hospitalization due to-awaiting placement ,pet scan will be scheduled outpatient as per pulm. awaiting insurance auth/repeat Pt eval papers sent to insurance. Quality Stroke Does the patient have a stroke diagnosis?: No VTE Prior VTE?: No VTE Risk Level:: Medical - moderate - high VTE Device Contraindication: Treatment Not Indicated VTE Drug Contraindication: N/A - Med Ordered
[2024-02-11] MEDS: Insulin Lispro 100 UNIT/ML 3 ML VIAL SUBCUT ×3 (12:35→20:20)
--- NOTE | 2024-02-11 12:57 | MHC.CM.PN ---
Addendum entered by Kimberly Ramirez RN 02/11/24 16:25: Patient and family would like to move forward with DC plan: [facility] on hospice. [facility] will reach out to to complete questionnaire. Family has requested bank statements, which should be ready after 11am tomorrow. CM will continue to follow. Addendum entered by Kimberly Ramirez RN 02/11/24 15:25: CM & CM manager outpatient met with family and additional son at bedside for 2pm. Again, reviewed dc options. Family again requesting time to discuss. IMM delivered. CM to follow up by EOD. Original Note: [employer] has denied STR. [facility] unable to accept patient if still planning for PET scan. Family verbalized that despite testing, they would not move forward with any treatment. /HCP would like to move forward with hospice at this time. CM met with , son, and patient at bedside to review dc options: -Home w/ [facility] & family support: son is on PFMLA and could assist w/ care. Other family may also be able to assist. Financially not able to pay privately for 24/7 care. Has 1hr/day [employer]ER through [facility] and would look into expanding those hours. [facility] met with family again for follow up informational. -SNF on hospice: [facility] offering and can accept w/ 6 months of bank statements, will assist w/ [facility] and family will not have to pay privately for room & board. Family does not prefer [facility]. CM corresponded w/ 2 other facilities that were following, both unable to accept w/ [facility] pending and would require private pay room & board. No other bed offers at this time. Discussed potential transfer to another facility once [facility] is in place. would like to discuss options with family. Plan to meet again at 2pm.
[2024-02-11 14:00] VITALS: BP 134/60; PULSE 60
[2024-02-11 14:54] VITALS: BP 114/57; PULSE 63; RESP 18; TEMP 36; O2SAT 92
[2024-02-11 16:24] LABS: Glucose, Whole Blood 274 mg/dL (60-115)
[2024-02-11 19:39] VITALS: BP 114/57; PULSE 62; RESP 18; TEMP 36; O2SAT 92
[2024-02-11 20:08] LABS: Glucose, Whole Blood 213 mg/dL (60-115)
[2024-02-11] MEDS: Divalproex Sodium ER 250 MG TAB.ER.24H PO (20:19)
[2024-02-11] MEDS: Acetaminophen 325 MG TABLET 650 MG PO (20:19)
[2024-02-11] MEDS: Atorvastatin Calcium 40 MG TABLET PO (20:19)
[2024-02-11] MEDS: Insulin Glargine,Hum.rec.anlog 100 UNIT/ML 10 ML VIAL 30 UNIT SUBCUT (20:20)
[2024-02-12 04:00] VITALS: BP 110/58; PULSE 54; RESP 16; TEMP 36; O2SAT 96
[2024-02-12] MEDS: Omeprazole 20 MG CAPSULE.DR PO (05:59)
[2024-02-12] MEDS: Levothyroxine Sodium 100 MCG TABLET PO (05:59)
[2024-02-12] MEDS: Acetaminophen 325 MG TABLET 650 MG PO ×2 (05:59→23:17)
[2024-02-12 07:18] VITALS: BP 108/56; PULSE 53; RESP 17; TEMP 36.2; O2SAT 96
[2024-02-12 07:35] LABS: Glucose, Whole Blood 125 mg/dL (60-115)
[2024-02-12] MEDS: Enoxaparin Sodium 100 MG/ML SYRINGE SUBCUT (09:01)
[2024-02-12] MEDS: predniSONE 20 MG TABLET PO (09:02)
[2024-02-12] MEDS: oxyBUTYnin chloride ER 5 MG TAB.ER.24 PO (09:02)
[2024-02-12] MEDS: Insulin Lispro 100 UNIT/ML 3 ML VIAL 6 UNIT SUBCUT ×4 (09:02→21:13)
[2024-02-12] MEDS: Metoprolol Succinate ER 25 MG TAB.ER.24H PO ×2 (09:02→21:10)
[2024-02-12] MEDS: busPIRone HCl 5 MG TABLET PO ×2 (09:02→21:11)
[2024-02-12] MEDS: ARIPiprazole 5 MG TABLET PO (09:02)
[2024-02-12] MEDS: Gabapentin 100 MG CAPSULE PO ×3 (09:02→21:10)
[2024-02-12] MEDS: Cholecalciferol (Vitamin D3) 25 MCG TABLET PO (09:02)
[2024-02-12] MEDS: risperiDONE 2 MG TABLET PO ×2 (09:02→21:10)
[2024-02-12] MEDS: Ferrous Sulfate 324 MG TABLET.DR PO (09:02)
[2024-02-12] MEDS: Divalproex Sodium ER 500 MG TAB.ER.24H PO ×2 (09:02→21:10)
[2024-02-12] MEDS: Ascorbic Acid 500 MG TABLET PO (09:02)
[2024-02-12] MEDS: 0.9 % Sodium Chloride Flush 3 ML SYRINGE IVFLUSH ×3 (09:08→21:14)
--- NOTE | 2024-02-12 09:41 | HO.PM.IMPN ---
Subjective Subjective Date of Service: 02/12/24 Interval History: feeling better Physical Exam Vital Signs: Vital Signs: Last Vital Signs Temp 97.1 F 02/12/24 07:18 Pulse 53 02/12/24 07:18 Resp 17 02/12/24 07:18 BP 108/56 L 02/12/24 07:18 Pulse Ox 96 02/12/24 07:18 O2 Del Method Nasal Cannula 02/12/24 07:18 O2 Flow Rate 3.0 02/12/24 07:18 FiO2 60 02/07/24 11:14 Oxygen Flow Rate 14 01/31/24 13:23 BMI result Body Mass Index 33.8 General:awake ,comfortable despite mild tachypnea/ mild accessory muscles Resp: diminished bilaterally CVS: S1, S2, RRR GI: +BS, NT, no distention Skin: Warm, dry Neuro: Cranial nerves II-XII grossly intact bilaterally. Motor grossly intact bilaterally Extremities: No edema Psych: Appropriate affect Objective Data Active Medications Acetaminophen (Acetaminophen 325 Mg Tablet) 650 mg PO Q6H PRN PRN Reason: Pain, Mild (Pain Scale 1-3), fever or headache Last Admin: 02/12/24 05:59 Dose: 650 mg Documented By: ANTDANIKA Acetaminophen (Acetaminophen Supp 650 Mg Supp.Rect) 650 mg TN Q4H PRN PRN Reason: Fever Or Pain Aripiprazole (Aripiprazole 5 Mg Tablet) 5 mg PO DAILY COUNTS INCLUDE 234 BEDS AT THE [facility] Last Admin: 02/12/24 09:02 Dose: 5 mg Documented By: ANANDA Ascorbic Acid (Ascorbic Acid 500 Mg Tablet) 500 mg PO DAILY COUNTS INCLUDE 234 BEDS AT THE [facility] Last Admin: 02/12/24 09:02 Dose: 500 mg Documented By: ANANDA Atorvastatin Calcium (Atorvastatin Calcium 40 Mg Tablet) 40 mg PO BEDTIME COUNTS INCLUDE 234 BEDS AT THE [facility] Last Admin: 02/11/24 20:19 Dose: 40 mg Documented By: ROCIO Bisacodyl (Bisacodyl 10 Mg Supp.Rect) 10 mg TN DAILY PRN PRN Reason: Constipation Buspirone HCl (Buspirone Hcl 5 Mg Tablet) 5 mg PO BID COUNTS INCLUDE 234 BEDS AT THE [facility] Last Admin: 02/12/24 09:02 Dose: 5 mg Documented By: ANANDA Calcium Carbonate (Calcium Carbonate 750 Mg Tab.Chew) 750 mg PO Q4H PRN PRN Reason: Heartburn Divalproex Sodium (Divalproex Sodium Er 250 Mg Tab.Er.24h) 250 mg PO BEDTIME COUNTS INCLUDE 234 BEDS AT THE [facility] Last Admin: 02/11/24 20:19 Dose: 250 mg Documented By: ROCIO Divalproex Sodium (Divalproex Sodium Er 500 Mg Tab.Er.24h) 500 mg PO BID COUNTS INCLUDE 234 BEDS AT THE [facility] Last Admin: 02/12/24 09:02 Dose: 500 mg Documented By: ANANDA Enoxaparin Sodium (Enoxaparin Sodium 100 Mg/Ml Syringe) 100 mg SUBCUT Q12H COUNTS INCLUDE 234 BEDS AT THE [facility] Last Admin: 02/12/24 09:01 Dose: 100 mg Documented By: ANANDA Ferrous Sulfate (Ferrous Sulfate 324 Mg Tablet.Dr) 324 mg PO DAILY COUNTS INCLUDE 234 BEDS AT THE [facility] Last Admin: 02/12/24 09:02 Dose: 324 mg Documented By: ANANDA Gabapentin (Gabapentin 100 Mg Capsule) 100 mg PO TID COUNTS INCLUDE 234 BEDS AT THE [facility] Last Admin: 02/12/24 09:02 Dose: 100 mg Documented By: ANANDA Glucose (Glucose Gel 15 Gm Gel..Gram.) 15 gm PO Q15M PRN; Protocol PRN Reason: per Hypoglycemia Standing Ord. Dextrose (D10) 250 mls @ 750 mls/hr IV Q15M PRN; Protocol PRN Reason: per Hypoglycemia Standing Ord. Insulin Glargine (Insulin Glargine,Hum.Rec.Anlog 100 Unit/Ml 10 Ml Vial) 30 unit SUBCUT BEDTIME COUNTS INCLUDE 234 BEDS AT THE [facility] Last Admin: 02/11/24 20:20 Dose: 30 unit Documented By: ROCIO Insulin Human Lispro (Insulin Lispro 100 Unit/Ml 3 Ml Vial) 0 unit SUBCUT QIDACHS COUNTS INCLUDE 234 BEDS AT THE [facility]; Protocol Last Admin: 02/12/24 07:50 Dose: Not Given Documented By: ANANDA Non-Admin Reason: No Insulin Coverage Insulin Human Lispro (Insulin Lispro 100 Unit/Ml 3 Ml Vial) 6 unit SUBCUT QIDACHS COUNTS INCLUDE 234 BEDS AT THE [facility] Last Admin: 02/12/24 09:02 Dose: 6 unit Documented By: ANANDA Levothyroxine Sodium (Levothyroxine Sodium 100 Mcg Tablet) 100 mcg PO DAILY@0600 COUNTS INCLUDE 234 BEDS AT THE [facility] Last Admin: 02/12/24 05:59 Dose: 100 mcg Documented By: ANTDANIKA Loperamide HCl (Loperamide Hcl 2 Mg Capsule) 2 mg PO Q4H PRN PRN Reason: Diarrhea Magnesium Hydroxide (Milk Of Magnesia 30 Ml Oral.Susp) 30 ml PO DAILY PRN PRN Reason: Constipation Melatonin (Melatonin 3 Mg Tablet) 6 mg PO BEDTIME PRN PRN Reason: Insomnia Metoprolol Succinate (Metoprolol Succinate Er 25 Mg Tab.Er.24h) 25 mg PO BID COUNTS INCLUDE 234 BEDS AT THE [facility]; Protocol Last Admin: 02/12/24 09:02 Dose: 25 mg Documented By: ANANDA Nystatin (Nystatin Powder 15 Gm Bottle) 1 appl TOPICAL BID COUNTS INCLUDE 234 BEDS AT THE [facility]; Protocol Last Admin: 02/11/24 21:25 Dose: 1 appl Documented By: ROCIO Omeprazole (Omeprazole 20 Mg Capsule.Dr) 20 mg PO DAILY@0630 COUNTS INCLUDE 234 BEDS AT THE [facility] Last Admin: 02/12/24 05:59 Dose: 20 mg Documented By: MINE Ondansetron HCl (Ondansetron Hcl 4 Mg/2 Ml Vial) 4 mg IVPUSH Q8H PRN PRN Reason: Nausea and Vomiting Last Admin: 02/08/24 00:22 Dose: 4 mg Documented By: WILL Oxybutynin Chloride (Oxybutynin Chloride Er 5 Mg Tab.Er.24) 5 mg PO DAILY COUNTS INCLUDE 234 BEDS AT THE [facility] Last Admin: 02/12/24 09:02 Dose: 5 mg Documented By: ANANDA Prednisone (Prednisone 20 Mg Tablet) 20 mg PO DAILY COUNTS INCLUDE 234 BEDS AT THE [facility] Last Admin: 02/12/24 09:02 Dose: 20 mg Documented By: ANANDA Risperidone (Risperidone 2 Mg Tablet) 2 mg PO BID COUNTS INCLUDE 234 BEDS AT THE [facility] Last Admin: 02/12/24 09:02 Dose: 2 mg Documented By: ANANDA Simethicone (Simethicone 80 Mg Tab.Chew) 80 mg PO QIDWMHS PRN PRN Reason: Gas Sodium Chloride (0.9 % Sodium Chloride Flush 3 Ml Syringe) 3 ml IVFLUSH QSHIFT COUNTS INCLUDE 234 BEDS AT THE [facility] Last Admin: 02/12/24 09:08 Dose: 3 ml Documented By: ANANDA Vitamin D (Cholecalciferol (Vitamin D3) 25 Mcg Tablet) 25 mcg PO DAILY COUNTS INCLUDE 234 BEDS AT THE [facility] Last Admin: 02/12/24 09:02 Dose: 25 mcg Documented By: ANANDA Labs 02/02/24 07:08 02/04/24 05:33 Labs: Laboratory Results - last 24 hr 02/11/24 02/11/24 02/11/24 10:58 16:19 19:51 POC Glucose 229 H 274 H 213 H 02/12/24 07:24 POC Glucose 125 H Assessment and Plan (1) COPD exacerbation: Status: Acute Assessment and Plan: 78F PMH significant for?paroxysmal AFib on anticoagulation HLD, insulin-dependent type 2 diabetes, hypothyroidism, former tobacco user, likely COPD, recently diagnosed right lung mass, and bipolar disorder who presented to the ED from [facility]?for increasing shortness a breath and acute on chronic hypoxia. Was admitted to the hospital for treatment and further evaluation of acute hypoxic respiratory failure in the setting of exacerbation of obstructive lung disease in a patient with likely metastatic lung cancer. 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 Paroxysmal AFib change back to eliquis as biopsy done, continue toprol Insulin-dependent type 2 diabetes Sliding-scale insulin, Lantus Diabetic diet HLD Continue statin Hypothyroidism Continue levothyroxine Bipolar disorder Continue depakote, abilify Chronic constipation Patient on significant bowel regimen, continue DNR/DNI DVT Prophylaxis: eliquis reason for continued hospitalization:oncology eval pending Quality Stroke Does the patient have a stroke diagnosis?: No VTE Prior VTE?: No VTE Risk Level:: Medical - moderate - high VTE Device Contraindication: Treatment Not Indicated VTE Drug Contraindication: N/A - Med Ordered
[2024-02-12 11:10] LABS: Glucose, Whole Blood 184 mg/dL (60-115)
--- NOTE | 2024-02-12 11:53 | PM.HEMONCCN ---
Subjective - Subjective Chief complaint: Reported Patient: known to practice within the last 3 years Consult date: 02/12/24 Requesting Physician: Hospitalist team Primary Care Provider: Brown Dickson MD HPI - Consult Narrative Reason for consult: Small cell lung cancer Narrative: Anu Chapa is a 78 year old female with past medical history significant for bipolar disorder, paroxysmal AFib on anticoagulation HLD, insulin-dependent type 2 diabetes, hypothyroidism, former tobacco user, likely COPD, who has been diagnosed with small cell lung cancer originating in the right lung. On 01/19/[address] chest which showed a 2.8 x 2.6 cm right upper lobe mass concerning for malignancy. Additionally left lower lobe mass measuring 1.5 x 1.3 cm, mediastinal mass measuring 3.8 x 5.4 cm concerning for adenopathy. Multiple additional pleural mass along the right pleura suspicious for metastatic disease. CT abdomen/pelvis with contrast performed 01/21/2024 showed a 1 x 0.8 cm mass in the dome of the liver. No clear evidence of metastatic disease in abdomen/pelvis. Brain MRI with and without contrast showed no evidence of intracranial metastatic disease. Ovto-kg-xerwdmgq global cerebral volume loss, presumably moderate chronic microangiopathy. She underwent bronchoscopy and biopsy on current admission. This time patient appears comfortable and is resting. She is a poor historian. I spoke to her son Celio who stated that her mental status is at baseline. Because of her underlying psychiatric problems, she is easily overwhelmed and can not participate in conversation. Prior to her recent admissions, she was able to get around at home with a walker. Her who is 81 helps her with ADLs. Review of Systems - Constitutional Reports as per HPI - Neurologic Denies memory loss, Denies seizure-like activity [facility] Medical History: Medical History (Last Updated 02/11/24 @ 13:06 by Denise Roche PA-C) Acquired hypothyroidism Allergic rhinitis Anemia Bipolar disorder COPD (chronic obstructive pulmonary disease) Diabetes mellitus Gait instability GERD (gastroesophageal reflux disease) High bilirubin History of vitamin D deficiency Hx of diabetes insipidus Hx of strabismus Hypertension Lymphadenopathy, mediastinal Metastatic carcinoma to lung Onset Date: ~2023 Obesity (BMI 30-39.9) PAF (paroxysmal atrial fibrillation) Pure hypercholesterolemia Family History: Family History (Last Reviewed 01/20/24 @ 03:17 by Urszula Esqueda MD) Father History of cerebral hemorrhage Mother History of cerebral hemorrhage Sister Breast cancer Surgical History: Surgical History (Last Updated 02/11/24 @ 13:06 by Denise Roche PA-C) History of bronchoscopy History of eye surgery History of left breast biopsy Hx of cataract surgery Onset Date: ~07/2017 Hx of colonoscopy Hx of dilation and curettage Social History: Social History (Last Reviewed 01/20/24 @ 03:17 by Urszula Esqueda MD) Living Situation History: Household Members: Spouse Housing: Apartment Do you presently have visiting nurse or other home services: No Tobacco History: Patient Tobacco Use Status: Former Tobacco user Tobacco use type: Cigarette Years Smoked: 20 e-Cigarette/Vaping Use: Never Used Second Hand Smoke Exposure: No Advance Directives: Advance Directives Date on File: 08/24/20 Occupation Assessmet: [employer] service: No Current occupational status: retired Home Medications and Allergies Current Medications: Current Medications Acetaminophen (Acetaminophen 325 Mg Tablet) 650 mg PO Q6H PRN PRN Reason: Pain, Mild (Pain Scale 1-3), fever or headache Last Admin: 02/12/24 05:59 Dose: 650 mg Acetaminophen (Acetaminophen Supp 650 Mg Supp.Rect) 650 mg GA Q4H PRN PRN Reason: Fever Or Pain Apixaban (Apixaban 5 Mg Tablet) 5 mg PO BID [facility] Aripiprazole (Aripiprazole 5 Mg Tablet) 5 mg PO DAILY [facility] Last Admin: 02/12/24 09:02 Dose: 5 mg Ascorbic Acid (Ascorbic Acid 500 Mg Tablet) 500 mg PO DAILY [facility] Last Admin: 02/12/24 09:02 Dose: 500 mg Atorvastatin Calcium (Atorvastatin Calcium 40 Mg Tablet) 40 mg PO BEDTIME [facility] Last Admin: 02/11/24 20:19 Dose: 40 mg Bisacodyl (Bisacodyl 10 Mg Supp.Rect) 10 mg GA DAILY PRN PRN Reason: Constipation Buspirone HCl (Buspirone Hcl 5 Mg Tablet) 5 mg PO BID [facility] Last Admin: 02/12/24 09:02 Dose: 5 mg Calcium Carbonate (Calcium Carbonate 750 Mg Tab.Chew) 750 mg PO Q4H PRN PRN Reason: Heartburn Divalproex Sodium (Divalproex Sodium Er 250 Mg Tab.Er.24h) 250 mg PO BEDTIME [facility] Last Admin: 02/11/24 20:19 Dose: 250 mg Divalproex Sodium (Divalproex Sodium Er 500 Mg Tab.Er.24h) 500 mg PO BID [facility] Last Admin: 02/12/24 09:02 Dose: 500 mg Ferrous Sulfate (Ferrous Sulfate 324 Mg Tablet.) 324 mg PO DAILY [facility] Last Admin: 02/12/24 09:02 Dose: 324 mg Gabapentin (Gabapentin 100 Mg Capsule) 100 mg PO TID [facility] Last Admin: 02/12/24 09:02 Dose: 100 mg Glucose (Glucose Gel 15 Gm Gel..Gram.) 15 gm PO Q15M PRN; Protocol PRN Reason: per Hypoglycemia Standing Ord. Dextrose (D10) 250 mls @ 750 mls/hr IV Q15M PRN; Protocol PRN Reason: per Hypoglycemia Standing Ord. Insulin Glargine (Insulin Glargine,Hum.Rec.Anlog 100 Unit/Ml 10 Ml Vial) 30 unit SUBCUT BEDTIME [facility] Last Admin: 02/11/24 20:20 Dose: 30 unit Insulin Human Lispro (Insulin Lispro 100 Unit/Ml 3 Ml Vial) 0 unit SUBCUT QIDACHS [facility]; Protocol Last Admin: 02/12/24 07:50 Dose: Not Given Insulin Human Lispro (Insulin Lispro 100 Unit/Ml 3 Ml Vial) 6 unit SUBCUT QIDACHS [facility] Last Admin: 02/12/24 09:02 Dose: 6 unit Levothyroxine Sodium (Levothyroxine Sodium 100 Mcg Tablet) 100 mcg PO DAILY@0600 [facility] Last Admin: 02/12/24 05:59 Dose: 100 mcg Loperamide HCl (Loperamide Hcl 2 Mg Capsule) 2 mg PO Q4H PRN PRN Reason: Diarrhea Magnesium Hydroxide (Milk Of Magnesia 30 Ml Oral.Susp) 30 ml PO DAILY PRN PRN Reason: Constipation Melatonin (Melatonin 3 Mg Tablet) 6 mg PO BEDTIME PRN PRN Reason: Insomnia Metoprolol Succinate (Metoprolol Succinate Er 25 Mg Tab.Er.24h) 25 mg PO BID [facility]; Protocol Last Admin: 02/12/24 09:02 Dose: 25 mg Nystatin (Nystatin Powder 15 Gm Bottle) 1 appl TOPICAL BID [facility]; Protocol Last Admin: 02/11/24 21:25 Dose: 1 appl Omeprazole (Omeprazole 20 Mg Capsule.) 20 mg PO DAILY@0630 [facility] Last Admin: 02/12/24 05:59 Dose: 20 mg Ondansetron HCl (Ondansetron Hcl 4 Mg/2 Ml Vial) 4 mg IVPUSH Q8H PRN PRN Reason: Nausea and Vomiting Last Admin: 02/08/24 00:22 Dose: 4 mg Oxybutynin Chloride (Oxybutynin Chloride Er 5 Mg Tab.Er.24) 5 mg PO DAILY [facility] Last Admin: 02/12/24 09:02 Dose: 5 mg Prednisone (Prednisone 20 Mg Tablet) 20 mg PO DAILY [facility] Last Admin: 02/12/24 09:02 Dose: 20 mg Risperidone (Risperidone 2 Mg Tablet) 2 mg PO BID [facility] Last Admin: 02/12/24 09:02 Dose: 2 mg Simethicone (Simethicone 80 Mg Tab.Chew) 80 mg PO QIDWMHS PRN PRN Reason: Gas Sodium Chloride (0.9 % Sodium Chloride Flush 3 Ml Syringe) 3 ml IVFLUSH QSHIFT [facility] Last Admin: 02/12/24 09:08 Dose: 3 ml Vitamin D (Cholecalciferol (Vitamin D3) 25 Mcg Tablet) 25 mcg PO DAILY [facility] Last Admin: 02/12/24 09:02 Dose: 25 mcg Home Medications ?Medication ?Instructions ?Recorded ?Confirmed ?Type lancing device with lancets kit #1 ea 05/11/20 12/05/23 History ([facility] Lancing Device kit) buspirone 5 mg tablet 5 mg PO BID anxiety 03/01/22 01/31/24 History divalproex 500 mg tablet,extended 500 mg PO BID 03/01/22 01/31/24 History release 24 hr risperidone 2 mg tablet 2 mg PO BID 05/20/23 01/31/24 History atorvastatin 40 mg tablet 40 mg PO BEDTIME 01/20/24 01/31/24 History nystatin 100,000 unit/gram topical 1 appl topical BID PRN rash under 01/20/24 01/31/24 History powder breasts acetaminophen 325 mg tablet 650 mg PO Q4H PRN pin 01/31/24 01/31/24 History (Tylenol) acetaminophen 650 mg rectal 650 mg GA Q4H PRN Fever Or Pain 01/31/24 01/31/24 History suppository bisacodyl 10 mg rectal suppository 10 mg GA DAILY PRN Constipation 01/31/24 01/31/24 History insulin glargine 100 unit/mL (3 24 unit subcut BEDTIME 01/31/24 01/31/24 History mL) subcutaneous pen (Lantus Solostar U-100 Insulin) lorazepam 0.5 mg tablet 0.5 mg PO Q12H PRN Agitation 01/31/24 01/31/24 History metoprolol succinate 25 mg 25 mg PO BID 01/31/24 01/31/24 History tablet,extended release 24 hr naloxone 4 mg/actuation nasal spray 4 mg intranasal Q3M PRN Opiate 01/31/24 01/31/24 History Reversal sennosides 8.6 mg tablet (senna) 17.2 mg PO BID 01/31/24 01/31/24 History sodium phosphates 19 gram-7 118 ml GA ONCE PRN Constipation 01/31/24 01/31/24 History gram/118 mL enema (Fleet Enema) tramadol 50 mg tablet 50 mg PO Q8H PRN Pain 01/31/24 01/31/24 History Allergies Allergy/AdvReac Type Severity Reaction Status Date / Time amoxicillin [Amoxicillin] Allergy Intermediate SWELLING, Verified 01/31/24 13:34 rash Sulfa (Sulfonamide Allergy Intermediate itching & Verified 01/31/24 13:34 Antibiotics) bruising codeine [CODEINE] Allergy Unknown RASH Verified 01/31/24 13:34 dicyclomine Allergy Unknown Unknown Verified 01/31/24 13:34 lidocaine [LIDOCAINE] Allergy Unknown UNKNOWN Verified 01/31/24 13:34 lithium [LITHIUM] AdvReac Severe NEPHROGENIC Verified 01/31/24 13:34 DIABETES INSIPIDUS meclizine [Meclizine] AdvReac Intermediate INCREASES Verified 01/31/24 13:34 DIZZINESS simvastatin [SIMVASTATIN] AdvReac Intermediate MYALGIAS Verified 01/31/24 13:34 metronidazole [METRONIDAZOLE] AdvReac Mild FLU LIKE Verified 01/31/24 13:34 SYMPTOMS acyclovir AdvReac Unknown Unknown Verified 01/31/24 13:34 dulaglutide [From Trulicity] AdvReac Unknown dizziness, Verified 01/31/24 13:34 tongue swollen semaglutide [From Ozempic] AdvReac Unknown Dizziness, Verified 01/31/24 13:34 problems remembering Physical Exam Vital signs: Vital Signs Temp 97.1 F 02/12/24 07:18 Pulse 53 02/12/24 07:18 Resp 17 02/12/24 07:18 BP 108/56 L 02/12/24 07:18 Pulse Ox 96 02/12/24 07:18 O2 Del Method Nasal Cannula 02/12/24 07:18 O2 Flow Rate 3.0 02/12/24 07:18 FiO2 60 02/07/24 11:14 Intake & Output 02/11/24 02/12/24 02/12/24 18:59 06:59 18:59 Intake Total 480 / 1640 1160 / 1640 Output Total 1000 / 1800 800 / 1800 Balance -520 / -160 360 / -160 Urine Output (Average ml/kg/hr) 0.83 0.66 Intake: Intake, Oral Amount 480 / 1640 1160 / 1640 Output: Output, Urine Amount 1000 / 1300 300 / 1300 Output, Urine Amount (Catheter) 500 / 500 purewick 500 / 500 Other: Breakfast % Eaten 75% Lunch % Eaten 100% Dinner % Eaten 100% Eating (Feeding) Ability Independent Independent Number of Unmeasured Voids 2 Urine purewick purewick Urine Color [place] Yellow Last Bowel Movement 02/11/24 Stool Incontinent Stool Amount Moderate Stool Color Brown Stool Consistency Semi Formed Weight 100.9 kg - Constitutional Present: no acute distress - Routine HEENT Exam Head: Present: normal inspection Eye: Present: EOMI - Routine Neck Exam Absent: lymphadenopathy - Routine Respiratory Exam Absent: accessory muscle use, stridor, wheezes - Routine Cardiovascular Exam Cardiovascular: Present: S1, S2 Hem/Onc Consult Result - Labs CBC & Chem 7: 02/02/24 07:08 02/04/24 05:33 Assessment and Plan Patient Active problem list reviewed?: Yes (1) Small cell lung cancer Status: Acute Assessment and plan: 1. This is a 78-year-old woman diagnosed with small cell lung cancer on 02/07/2024. She underwent bronchoscopy and biopsy of 4R lymph node which revealed small cell carcinoma. IHC positive for pancytokeratin and synaptophysin. Flow cytometry does not reveal lymphoma. On 01/19/[address] chest which showed a 2.8 x 2.6 cm right upper lobe mass concerning for malignancy. Additionally left lower lobe mass measuring 1.5 x 1.3 cm, mediastinal mass measuring 3.8 x 5.4 cm concerning for adenopathy. Multiple additional pleural mass along the right pleura suspicious for metastatic disease. CT abdomen/pelvis with contrast performed 01/21/2024 showed a 1 x 0.8 cm mass in the dome of the liver. No clear evidence of metastatic disease in abdomen/pelvis. However the radiologist read the pleural-based masses in the left lower lobe as possible fibrous tumor of pleura rather than metastasis. Brain MRI with and without contrast showed no evidence of intracranial metastatic disease. [id number] global cerebral volume loss, presumably moderate chronic microangiopathy. I discussed above findings with her son Celio who is also her healthcare proxy. She appears to have advanced stage small cell lung cancer, PET-CT will further help inaccurate staging. She does not have brain Mets. Her performance status is low. She was admitted twice for hypoxic respiratory failure this month. She has had acute on chronic COPD exacerbation. For extensive stage small cell lung cancer, chemotherapy with immunotherapy is the standard of care. If she has limited stage disease, concurrent chemoradiation therapy is the standard of care. Because of her poor performance status, the family is unable to take care of her at home. Discussions underway with the social worker assistant about disposition and discharge planning. PET scan to be arranged as outpatient. Referral to Radiation Oncology will be made after reviewing PET scan. I thank you for this referral. - Time Spent With Patient Time Spent with Patient (in minutes): 30 Additional Coding: - Additional E/M codes Complex E/M visit Add On: CPT G2211
[2024-02-12] MEDS: Insulin Lispro 100 UNIT/ML 3 ML VIAL SUBCUT ×3 (11:57→21:11)
--- NOTE | 2024-02-12 14:40 | MHC.CM.PN ---
Addendum entered by Kimberly Ramirez RN 02/12/24 16:11: FREDY met with sons at bedside. They are still agreeable to [facility] on hospice and continue to work on obtaining required documentation. Original Note: Per MD, family requesting meeting with oncology. After meeting, family considering moving forward with treatment. Family will meet at 3:30pm to decide. They understand that SNF placement with treatment is not possible. They are continuing to work on obtaining bank statements for [facility]. CM will meet with family after 3:30pm.
[2024-02-12] MEDS: Calcium Carbonate 750 MG TAB.CHEW PO (14:42)
[2024-02-12 15:07] VITALS: BP 113/57; PULSE 62; RESP 16; TEMP 36.2; O2SAT 93
[2024-02-12 16:51] LABS: Glucose, Whole Blood 164 mg/dL (60-115)
[2024-02-12 20:00] VITALS: BP 124/63; PULSE 66; RESP 20; TEMP 36.2; O2SAT 94
[2024-02-12 20:39] LABS: Glucose, Whole Blood 160 mg/dL (60-115)
[2024-02-12] MEDS: Apixaban 5 MG TABLET PO (21:10)
[2024-02-12] MEDS: Atorvastatin Calcium 40 MG TABLET PO (21:10)
[2024-02-12] MEDS: Divalproex Sodium ER 250 MG TAB.ER.24H PO (21:10)
[2024-02-12] MEDS: Insulin Glargine,Hum.rec.anlog 100 UNIT/ML 10 ML VIAL 30 UNIT SUBCUT (21:14)
[2024-02-12] MEDS: Nystatin Powder 15 GM BOTTLE 1 APPL TOPICAL (21:15)
[2024-02-13 02:46] VITALS: BP 104/59; PULSE 56; RESP 20; TEMP 36; O2SAT 99
[2024-02-13] MEDS: Levothyroxine Sodium 100 MCG TABLET PO (05:46)
[2024-02-13] MEDS: Omeprazole 20 MG CAPSULE.DR PO (05:46)
[2024-02-13 06:25] LABS: Hematocrit 37.6 % (37.0-47.0); Hemoglobin 11.6 g/dl (12.0-16.0); Mean Corpuscular HGB Conc 30.9 g/dl (31.0-35.0); Mean Corpuscular Hemoglobin 31.9 pg (27.0-33.0); Mean Corpuscular Volume 103.3 fL (80.0-98.0); Mean Platelet Volume 9.3 fL (9.4-12.3); Platelet Count 194 X10*3/uL (160-400); Red Blood Count 3.64 X10*6/uL (4.20-5.50); Red Cell Distribution Width 13.3 % (11.0-16.0); White Blood Count 13.3 X10*3/uL (4.8-10.8)
[2024-02-13 06:50] LABS: Anion Gap 14 (12-20); Blood Urea Nitrogen 20 mg/dL (9-16); Calcium 9.6 mg/dL (8.4-10.2); Carbon Dioxide 31 mmol/L (22-29); Chloride 101 mmol/L (96-108); Creatinine Clr Calc Pharmacy 63.9; Estimated Glomerular Filt Rate 59; Glucose Fasting 94 mg/dL (60-99); Magnesium 2.2 mg/dL (1.6-2.6); Potassium 4.5 mmol/L (3.3-5.1); Sodium 141 mmol/L (135-145)
[2024-02-13 07:10] VITALS: BP 125/57; PULSE 58; RESP 18; TEMP 36.2; O2SAT 94
[2024-02-13 07:26] LABS: Glucose, Whole Blood 91 mg/dL (60-115)
--- NOTE | 2024-02-13 08:59 | P.PNIM_ITS ---
Subjective Subjective Date of Service: 02/13/24 Interval History: improved sob and strength Physical Exam 2 Vital Signs: Vital Signs: Last Vital Signs Temp 97.2 F 02/13/24 07:10 Pulse 58 02/13/24 07:10 Resp 18 02/13/24 07:10 BP 125/57 L 02/13/24 07:10 Pulse Ox 94 02/13/24 07:10 O2 Del Method Nasal Cannula 02/13/24 07:10 O2 Flow Rate 3 02/13/24 07:10 FiO2 60 02/07/24 11:14 Oxygen Flow Rate 14 01/31/24 13:23 BMI result Body Mass Index 33.8 General:awake ,comfortable Resp: diminished bilaterally CVS: S1, S2, RRR GI: +BS, NT, no distention Skin: Warm, dry Neuro: Cranial nerves II-XII grossly intact bilaterally. Motor grossly intact bilaterally Extremities: No edema Psych: Appropriate affect Objective Data Active Medications Acetaminophen (Acetaminophen 325 Mg Tablet) 650 mg PO Q6H PRN PRN Reason: Pain, Mild (Pain Scale 1-3), fever or headache Last Admin: 02/12/24 23:17 Dose: 650 mg Documented By: WILLIE Acetaminophen (Acetaminophen Supp 650 Mg Supp.Rect) 650 mg [place] Q4H PRN PRN Reason: Fever Or Pain Apixaban (Apixaban 5 Mg Tablet) 5 mg PO BID [facility] Last Admin: 02/12/24 21:10 Dose: 5 mg Documented By: WILLIE Aripiprazole (Aripiprazole 5 Mg Tablet) 5 mg PO DAILY [facility] Last Admin: 02/12/24 09:02 Dose: 5 mg Documented By: ANANDA Ascorbic Acid (Ascorbic Acid 500 Mg Tablet) 500 mg PO DAILY [facility] Last Admin: 02/12/24 09:02 Dose: 500 mg Documented By: ANANDA Atorvastatin Calcium (Atorvastatin Calcium 40 Mg Tablet) 40 mg PO BEDTIME [facility] Last Admin: 02/12/24 21:10 Dose: 40 mg Documented By: WILLIE Bisacodyl (Bisacodyl 10 Mg Supp.Rect) 10 mg [place] DAILY PRN PRN Reason: Constipation Buspirone HCl (Buspirone Hcl 5 Mg Tablet) 5 mg PO BID [facility] Last Admin: 02/12/24 21:11 Dose: 5 mg Documented By: WILLIE Calcium Carbonate (Calcium Carbonate 750 Mg Tab.Chew) 750 mg PO Q4H PRN PRN Reason: Heartburn Last Admin: 02/12/24 14:42 Dose: 750 mg Documented By: ANANDA Divalproex Sodium (Divalproex Sodium Er 250 Mg Tab.Er.24h) 250 mg PO BEDTIME [facility] Last Admin: 02/12/24 21:10 Dose: 250 mg Documented By: WILLIE Divalproex Sodium (Divalproex Sodium Er 500 Mg Tab.Er.24h) 500 mg PO BID [facility] Last Admin: 02/12/24 21:10 Dose: 500 mg Documented By: WILLIE Ferrous Sulfate (Ferrous Sulfate 324 Mg Tablet.Dr) 324 mg PO DAILY [facility] Last Admin: 02/12/24 09:02 Dose: 324 mg Documented By: ANANDA Gabapentin (Gabapentin 100 Mg Capsule) 100 mg PO TID [facility] Last Admin: 02/12/24 21:10 Dose: 100 mg Documented By: WILLIE Glucose (Glucose Gel 15 Gm Gel..Gram.) 15 gm PO Q15M PRN; Protocol PRN Reason: per Hypoglycemia Standing Ord. Dextrose (D10) 250 mls @ 750 mls/hr IV Q15M PRN; Protocol PRN Reason: per Hypoglycemia Standing Ord. Insulin Glargine (Insulin Glargine,Hum.Rec.Anlog 100 Unit/Ml 10 Ml Vial) 30 unit SUBCUT BEDTIME [facility] Last Admin: 02/12/24 21:14 Dose: 30 unit Documented By: WILLIE Insulin Human Lispro (Insulin Lispro 100 Unit/Ml 3 Ml Vial) 0 unit SUBCUT QIDACHS [facility]; Protocol Last Admin: 02/13/24 08:57 Dose: Not Given Documented By: COY Non-Admin Reason: No Insulin Coverage Insulin Human Lispro (Insulin Lispro 100 Unit/Ml 3 Ml Vial) 6 unit SUBCUT QIDACHS [facility] Last Admin: 02/13/24 08:58 Dose: Not Given Documented By: COY Non-Admin Reason: poc 91 Levothyroxine Sodium (Levothyroxine Sodium 100 Mcg Tablet) 100 mcg PO DAILY@0600 [facility] Last Admin: 02/13/24 05:46 Dose: 100 mcg Documented By: WILLIE Loperamide HCl (Loperamide Hcl 2 Mg Capsule) 2 mg PO Q4H PRN PRN Reason: Diarrhea Magnesium Hydroxide (Milk Of Magnesia 30 Ml Oral.Susp) 30 ml PO DAILY PRN PRN Reason: Constipation Melatonin (Melatonin 3 Mg Tablet) 6 mg PO BEDTIME PRN PRN Reason: Insomnia Metoprolol Succinate (Metoprolol Succinate Er 25 Mg Tab.Er.24h) 25 mg PO BID [facility]; Protocol Last Admin: 02/12/24 21:10 Dose: 25 mg Documented By: WILLIE Nystatin (Nystatin Powder 15 Gm Bottle) 1 appl TOPICAL BID [facility]; Protocol Last Admin: 02/12/24 21:15 Dose: 1 appl Documented By: WILLIE Omeprazole (Omeprazole 20 Mg Capsule.Dr) 20 mg PO DAILY@0630 [facility] Last Admin: 02/13/24 05:46 Dose: 20 mg Documented By: WILLIE Ondansetron HCl (Ondansetron Hcl 4 Mg/2 Ml Vial) 4 mg IVPUSH Q8H PRN PRN Reason: Nausea and Vomiting Last Admin: 02/08/24 00:22 Dose: 4 mg Documented By: WILL Oxybutynin Chloride (Oxybutynin Chloride Er 5 Mg Tab.Er.24) 5 mg PO DAILY [facility] Last Admin: 02/12/24 09:02 Dose: 5 mg Documented By: ANANDA Prednisone (Prednisone 20 Mg Tablet) 20 mg PO DAILY [facility] Last Admin: 02/12/24 09:02 Dose: 20 mg Documented By: ANANDA Risperidone (Risperidone 2 Mg Tablet) 2 mg PO BID [facility] Last Admin: 02/12/24 21:10 Dose: 2 mg Documented By: WILLIE Simethicone (Simethicone 80 Mg Tab.Chew) 80 mg PO QIDWMHS PRN PRN Reason: Gas Sodium Chloride (0.9 % Sodium Chloride Flush 3 Ml Syringe) 3 ml IVFLUSH QSHIFT [facility] Last Admin: 02/12/24 21:14 Dose: 3 ml Documented By: WILLIE Vitamin D (Cholecalciferol (Vitamin D3) 25 Mcg Tablet) 25 mcg PO DAILY [facility] Last Admin: 02/12/24 09:02 Dose: 25 mcg Documented By: ANANDA Labs 02/13/24 06:09 02/13/24 06:10 Labs: Laboratory Results - last 24 hr 02/12/24 02/12/24 02/12/24 11:01 16:45 20:32 MCV MCH MCHC RDW Plt Count MPV Absolute Nucleated RBC Nucleated RBC % (auto) Anion Gap Estim Creat Clear Calc Estimated GFR POC Glucose 184 H 164 H 160 H Fasting Glucose Calcium Magnesium 02/13/24 02/13/24 02/13/24 06:09 06:10 07:12 MCV 103.3 H MCH 31.9 MCHC 30.9 L RDW 13.3 Plt Count 194 MPV 9.3 L Absolute Nucleated RBC 0.000 Nucleated RBC % (auto) 0.0 Anion Gap 14 Estim Creat Clear Calc 63.9 Estimated GFR 59 POC Glucose 91 Fasting Glucose 94 Calcium 9.6 Magnesium 2.2 Assessment and Plan (1) COPD exacerbation: Status: Acute Assessment and Plan: 78F PMH significant for?paroxysmal AFib on anticoagulation HLD, insulin- dependent type 2 diabetes, hypothyroidism, former tobacco user, likely COPD, recently diagnosed right lung mass, and bipolar disorder who presented to the ED from [facility]?for increasing shortness a breath and acute on chronic hypoxia. Was admitted to the hospital for treatment and further evaluation of acute hypoxic respiratory failure in the setting of exacerbation of obstructive lung disease in a patient with likely metastatic lung cancer. Acute hypoxic respiratory failure in the setting of COPD with acute exacerbation seems improved Continue DuoNebs, prednisone taper.,Titrate supplemental O2 with goal of 92 small cell lung cancer with mediastinal and and possible liver mets plan for outpatient pet-ct, then would be either chemo with radiation if local, or chemo with immunotherapy if distant mets not curable, but treatment could potentially prolong life Diarrhea improved. Paroxysmal AFib change back to eliquis as biopsy done, continue toprol Insulin-dependent type 2 diabetes Sliding-scale insulin, Lantus Diabetic diet HLD Continue statin Hypothyroidism Continue levothyroxine Bipolar disorder Continue depakote, abilify Chronic constipation Patient on significant bowel regimen, continue DNR/DNI DVT Prophylaxis: eliquis reason for continued hospitalization:safe dispo Quality Stroke Does the patient have a stroke diagnosis?: No VTE Prior VTE?: No VTE Risk Level:: Medical - moderate - high VTE Device Contraindication: Treatment Not Indicated VTE Drug Contraindication: N/A - Med Ordered
[2024-02-13] MEDS: risperiDONE 2 MG TABLET PO ×2 (10:31→20:10)
[2024-02-13] MEDS: Divalproex Sodium ER 500 MG TAB.ER.24H PO ×2 (10:31→20:10)
[2024-02-13] MEDS: predniSONE 20 MG TABLET PO (10:31)
[2024-02-13] MEDS: Gabapentin 100 MG CAPSULE PO ×3 (10:31→20:10)
[2024-02-13] MEDS: Cholecalciferol (Vitamin D3) 25 MCG TABLET PO (10:31)
[2024-02-13] MEDS: Ascorbic Acid 500 MG TABLET PO (10:31)
[2024-02-13] MEDS: Apixaban 5 MG TABLET PO ×2 (10:32→20:10)
[2024-02-13] MEDS: ARIPiprazole 5 MG TABLET PO (10:32)
[2024-02-13] MEDS: busPIRone HCl 5 MG TABLET PO ×2 (10:32→20:10)
[2024-02-13] MEDS: Metoprolol Succinate ER 25 MG TAB.ER.24H PO ×2 (10:32→20:10)
[2024-02-13] MEDS: Ferrous Sulfate 324 MG TABLET.DR PO (10:32)
[2024-02-13] MEDS: Nystatin Powder 15 GM BOTTLE 1 APPL TOPICAL ×2 (10:33→20:20)
[2024-02-13] MEDS: 0.9 % Sodium Chloride Flush 3 ML SYRINGE IVFLUSH ×3 (10:45→20:10)
[2024-02-13] MEDS: oxyBUTYnin chloride ER 5 MG TAB.ER.24 PO (10:54)
[2024-02-13 11:19] LABS: Glucose, Whole Blood 164 mg/dL (60-115)
[2024-02-13 11:45] LABS: Appearance Urine Turbid; Glucose Urine UA Negative (Negative); Leukocyte Esterase Urine Large (3+) (Negative); Nitrite Urine Positive (Negative); Specific Gravity - Urine 1.015 (1.005-1.025); UMIC TRIGGER UA YES; Urine Blood Large (3+) (Negative); Urine Ketones Negative (Negative); Urine Protein 30 (1+) mg/dL (Neg-Trace)
[2024-02-13 11:46] LABS: Bacteria Urine 4+ (None Seen); Color Urine Dark Yellow; Hyaline Casts Urine 0-2 /LPF (0-2); RBC Urine >20 /HPF (0-2); Squamous Epithelial Cell Urine 0-2 /HPF (0-2); WBC Urine >50 /HPF (0-5)
[2024-02-13] MEDS: cefTRIAXone sodium 1 GM in 0.9 % Sodium Chloride 50 ML IV (12:07)
[2024-02-13] MEDS: Insulin Lispro 100 UNIT/ML 3 ML VIAL SUBCUT ×3 (12:12→21:45)
[2024-02-13] MEDS: Insulin Lispro 100 UNIT/ML 3 ML VIAL 6 UNIT SUBCUT ×3 (12:13→21:44)
--- NOTE | 2024-02-13 15:00 | PC.NURSE ---
Pt's son requesting family meeting with Dr. Roach. Plan for meeting 02/13 @ 8am. Son and aware.
[2024-02-13 15:44] LABS: Glucose, Whole Blood 257 mg/dL (60-115)
[2024-02-13 15:45] VITALS: BP 127/59; PULSE 67; RESP 20; TEMP 36.4; O2SAT 94
--- NOTE | 2024-02-13 15:58 | MHC.CM.PN ---
Family provided bank statements to this CM. Forwarded to [facility]. Await corporate approval. Anticipate dc to [facility] tomorrow 02/13. IMM delivered.
[2024-02-13] MEDS: Acetaminophen 325 MG TABLET 650 MG PO (17:26)
[2024-02-13 20:00] VITALS: BP 121/54; PULSE 57; RESP 20; TEMP 36.3; O2SAT 97
[2024-02-13 20:10] VITALS: BP 121/54; PULSE 64
[2024-02-13] MEDS: Atorvastatin Calcium 40 MG TABLET PO (20:10)
[2024-02-13] MEDS: Divalproex Sodium ER 250 MG TAB.ER.24H PO (20:10)
[2024-02-13 20:30] LABS: Glucose, Whole Blood 200 mg/dL (60-115)
[2024-02-13] MEDS: Insulin Glargine,Hum.rec.anlog 100 UNIT/ML 10 ML VIAL 30 UNIT SUBCUT (21:44)
[2024-02-14 04:00] VITALS: BP 138/62; PULSE 55; RESP 18; TEMP 36.5; O2SAT 94
[2024-02-14] MEDS: Levothyroxine Sodium 100 MCG TABLET PO (05:33)
[2024-02-14] MEDS: Omeprazole 20 MG CAPSULE.DR PO (05:33)
[2024-02-14 07:37] VITALS: BP 116/58; PULSE 58; RESP 18; TEMP 36.6; O2SAT 95
[2024-02-14 07:37] LABS: Glucose, Whole Blood 87 mg/dL (60-115)
--- NOTE | 2024-02-14 09:17 | HO.PM.IMPN ---
Subjective Subjective Date of Service: 02/14/24 Interval History: dysuria Physical Exam Vital Signs: Vital Signs: Last Vital Signs Temp 97.8 F 02/14/24 07:37 Pulse 58 02/14/24 07:37 Resp 18 02/14/24 07:37 BP 116/58 L 02/14/24 07:37 Pulse Ox 95 02/14/24 07:37 O2 Del Method Nasal Cannula 02/14/24 07:37 O2 Flow Rate 3 02/14/24 07:37 FiO2 60 02/07/24 11:14 Oxygen Flow Rate 14 01/31/24 13:23 BMI result Body Mass Index 33.8 General:awake ,comfortable Resp: diminished bilaterally CVS: S1, S2, RRR GI: +BS, NT, no distention Skin: Warm, dry Neuro: Cranial nerves II-XII grossly intact bilaterally. Motor grossly intact bilaterally Extremities: No edema Psych: Appropriate affect Objective Data Active Medications Acetaminophen (Acetaminophen 325 Mg Tablet) 650 mg PO Q6H PRN PRN Reason: Pain, Mild (Pain Scale 1-3), fever or headache Last Admin: 02/13/24 17:26 Dose: 650 mg Documented By: COY Acetaminophen (Acetaminophen Supp 650 Mg Supp.Rect) 650 mg [place] Q4H PRN PRN Reason: Fever Or Pain Apixaban (Apixaban 5 Mg Tablet) 5 mg PO BID [facility] Last Admin: 02/13/24 20:10 Dose: 5 mg Documented By: LINSEY Aripiprazole (Aripiprazole 5 Mg Tablet) 5 mg PO DAILY [facility] Last Admin: 02/13/24 10:32 Dose: 5 mg Documented By: COY Ascorbic Acid (Ascorbic Acid 500 Mg Tablet) 500 mg PO DAILY [facility] Last Admin: 02/13/24 10:31 Dose: 500 mg Documented By: COY Atorvastatin Calcium (Atorvastatin Calcium 40 Mg Tablet) 40 mg PO BEDTIME [facility] Last Admin: 02/13/24 20:10 Dose: 40 mg Documented By: LINSEY Bisacodyl (Bisacodyl 10 Mg Supp.Rect) 10 mg [place] DAILY PRN PRN Reason: Constipation Buspirone HCl (Buspirone Hcl 5 Mg Tablet) 5 mg PO BID [facility] Last Admin: 02/13/24 20:10 Dose: 5 mg Documented By: LINSEY Calcium Carbonate (Calcium Carbonate 750 Mg Tab.Chew) 750 mg PO Q4H PRN PRN Reason: Heartburn Last Admin: 02/12/24 14:42 Dose: 750 mg Documented By: ANANDA Divalproex Sodium (Divalproex Sodium Er 250 Mg Tab.Er.24h) 250 mg PO BEDTIME [facility] Last Admin: 02/13/24 20:10 Dose: 250 mg Documented By: LINSEY Divalproex Sodium (Divalproex Sodium Er 500 Mg Tab.Er.24h) 500 mg PO BID [facility] Last Admin: 02/13/24 20:10 Dose: 500 mg Documented By: LINSEY Ferrous Sulfate (Ferrous Sulfate 324 Mg Tablet.Dr) 324 mg PO DAILY [facility] Last Admin: 02/13/24 10:32 Dose: 324 mg Documented By: COY Gabapentin (Gabapentin 100 Mg Capsule) 100 mg PO TID [facility] Last Admin: 02/13/24 20:10 Dose: 100 mg Documented By: LINSEY Glucose (Glucose Gel 15 Gm Gel..Gram.) 15 gm PO Q15M PRN; Protocol PRN Reason: per Hypoglycemia Standing Ord. Dextrose (D10) 250 mls @ 750 mls/hr IV Q15M PRN; Protocol PRN Reason: per Hypoglycemia Standing Ord. Ceftriaxone Sodium 1 gm/ (Sodium Chloride) 50 mls @ 100 mls/hr IV Q24H [facility] Last Infusion: 02/13/24 12:45 Dose: Infused Documented By: COY Insulin Glargine (Insulin Glargine,Hum.Rec.Anlog 100 Unit/Ml 10 Ml Vial) 30 unit SUBCUT BEDTIME [facility] Last Admin: 02/13/24 21:44 Dose: 30 unit Documented By: LINSEY Insulin Human Lispro (Insulin Lispro 100 Unit/Ml 3 Ml Vial) 0 unit SUBCUT QIDACHS [facility]; Protocol Last Admin: 02/13/24 21:45 Dose: 2 unit Documented By: LINSEY Insulin Human Lispro (Insulin Lispro 100 Unit/Ml 3 Ml Vial) 6 unit SUBCUT QIDACHS [facility] Last Admin: 02/13/24 21:44 Dose: 6 unit Documented By: LINSEY Levothyroxine Sodium (Levothyroxine Sodium 100 Mcg Tablet) 100 mcg PO DAILY@0600 [facility] Last Admin: 02/14/24 05:33 Dose: 100 mcg Documented By: LINSEY Loperamide HCl (Loperamide Hcl 2 Mg Capsule) 2 mg PO Q4H PRN PRN Reason: Diarrhea Magnesium Hydroxide (Milk Of Magnesia 30 Ml Oral.Susp) 30 ml PO DAILY PRN PRN Reason: Constipation Melatonin (Melatonin 3 Mg Tablet) 6 mg PO BEDTIME PRN PRN Reason: Insomnia Metoprolol Succinate (Metoprolol Succinate Er 25 Mg Tab.Er.24h) 25 mg PO BID [facility]; Protocol Last Admin: 02/13/24 20:10 Dose: 25 mg Documented By: LINSEY Nystatin (Nystatin Powder 15 Gm Bottle) 1 appl TOPICAL BID [facility]; Protocol Last Admin: 02/13/24 20:20 Dose: 1 appl Documented By: LINSEY Omeprazole (Omeprazole 20 Mg Capsule.Dr) 20 mg PO DAILY@0630 [facility] Last Admin: 02/14/24 05:33 Dose: 20 mg Documented By: LINSEY Ondansetron HCl (Ondansetron Hcl 4 Mg/2 Ml Vial) 4 mg IVPUSH Q8H PRN PRN Reason: Nausea and Vomiting Last Admin: 02/08/24 00:22 Dose: 4 mg Documented By: WILL Oxybutynin Chloride (Oxybutynin Chloride Er 5 Mg Tab.Er.24) 5 mg PO DAILY [facility] Last Admin: 02/13/24 10:54 Dose: 5 mg Documented By: COY Prednisone (Prednisone 20 Mg Tablet) 20 mg PO DAILY [facility] Last Admin: 02/13/24 10:31 Dose: 20 mg Documented By: COY Risperidone (Risperidone 2 Mg Tablet) 2 mg PO BID [facility] Last Admin: 02/13/24 20:10 Dose: 2 mg Documented By: LINSEY Simethicone (Simethicone 80 Mg Tab.Chew) 80 mg PO QIDWMHS PRN PRN Reason: Gas Sodium Chloride (0.9 % Sodium Chloride Flush 3 Ml Syringe) 3 ml IVFLUSH QSHIFT [facility] Last Admin: 02/13/24 20:10 Dose: 3 ml Documented By: LINSEY Vitamin D (Cholecalciferol (Vitamin D3) 25 Mcg Tablet) 25 mcg PO DAILY [facility] Last Admin: 02/13/24 10:31 Dose: 25 mcg Documented By: COY Labs 02/13/24 06:09 02/13/24 06:10 Labs: Laboratory Results - last 24 hr 02/13/24 02/13/24 02/13/24 11:13 11:23 15:28 POC Glucose 164 H 257 H Urine Color Dark Yellow Urine Appearance Turbid Urine pH 6.0 Ur Specific [place] 1.015 Urine Protein 30 (1+) H Urine Glucose (UA) Negative Urine Ketones Negative Urine Blood Large (3+) H Urine Nitrite Positive H Ur Leukocyte Esterase Large (3+) H Urine RBC >20 H Urine WBC >50 H Ur Squamous Epith Cells 0-2 Urine Bacteria 4+ Hyaline Casts 0-2 02/13/24 02/14/24 20:22 07:18 POC Glucose 200 H 87 Urine Color Urine Appearance Urine pH Ur Specific [place] Urine Protein Urine Glucose (UA) Urine Ketones Urine Blood Urine Nitrite Ur Leukocyte Esterase Urine RBC Urine WBC Ur Squamous Epith Cells Urine Bacteria Hyaline Casts Assessment and Plan (1) COPD exacerbation: Status: Acute Assessment and Plan: 78F PMH significant for?paroxysmal AFib on anticoagulation HLD, insulin-dependent type 2 diabetes, hypothyroidism, former tobacco user, likely COPD, recently diagnosed right lung mass, and bipolar disorder who presented to the ED from [facility]?for increasing shortness a breath and acute on chronic hypoxia. Was admitted to the hospital for treatment and further evaluation of acute hypoxic respiratory failure in the setting of exacerbation of obstructive lung disease in a patient with likely metastatic lung cancer. 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 Paroxysmal AFib changed back to eliquis as biopsy done, continue toprol Insulin-dependent type 2 diabetes Sliding-scale insulin, Lantus Diabetic diet HLD Continue statin Hypothyroidism Continue levothyroxine Bipolar disorder Continue depakote, abilify Chronic constipation Patient on significant bowel regimen, continue DNR/DNI DVT Prophylaxis: eliquis reason for continued hospitalization:safe dispo Quality Stroke Does the patient have a stroke diagnosis?: No VTE Prior VTE?: No VTE Risk Level:: Medical - moderate - high VTE Device Contraindication: Treatment Not Indicated VTE Drug Contraindication: N/A - Med Ordered
[2024-02-14] MEDS: Calcium Carbonate 750 MG TAB.CHEW PO (09:51)
[2024-02-14] MEDS: Metoprolol Succinate ER 25 MG TAB.ER.24H PO (09:52)
[2024-02-14] MEDS: busPIRone HCl 5 MG TABLET PO ×2 (09:52→21:01)
[2024-02-14] MEDS: predniSONE 20 MG TABLET PO (09:52)
[2024-02-14] MEDS: ARIPiprazole 5 MG TABLET PO (09:53)
[2024-02-14] MEDS: Gabapentin 100 MG CAPSULE PO ×3 (09:53→21:01)
[2024-02-14] MEDS: Apixaban 5 MG TABLET PO ×2 (09:53→21:01)
[2024-02-14] MEDS: 0.9 % Sodium Chloride Flush 3 ML SYRINGE IVFLUSH ×3 (09:53→23:22)
[2024-02-14] MEDS: Ascorbic Acid 500 MG TABLET PO (09:53)
[2024-02-14] MEDS: Cholecalciferol (Vitamin D3) 25 MCG TABLET PO (09:53)
[2024-02-14] MEDS: Ferrous Sulfate 324 MG TABLET.DR PO (09:53)
[2024-02-14] MEDS: risperiDONE 2 MG TABLET PO ×2 (09:53→21:01)
[2024-02-14] MEDS: oxyBUTYnin chloride ER 5 MG TAB.ER.24 PO (09:53)
[2024-02-14] MEDS: Divalproex Sodium ER 500 MG TAB.ER.24H PO ×2 (09:53→21:01)
--- NOTE | 2024-02-14 09:56 | P.PNHO-ONC_ITS ---
Medical Summary - Medical Summary Date of Service: 02/14/24 Chief complaint: Family meeting Primary Care Provider: Brown Dickson MD Interval History Interval history: Anu Chapa is a 78 year old female with past medical history significant for bipolar disorder, paroxysmal AFib on anticoagulation HLD, insulin-dependent type 2 diabetes, hypothyroidism, former tobacco user, likely COPD, who has been diagnosed with small cell lung cancer originating in the right lung. On 01/19/[address] chest which showed a 2.8 x 2.6 cm right upper lobe mass concerning for malignancy. Additionally left lower lobe mass measuring 1.5 x 1.3 cm, mediastinal mass measuring 3.8 x 5.4 cm concerning for adenopathy. Multiple additional pleural mass along the right pleura suspicious for metastatic disease. CT abdomen/pelvis with contrast performed 01/21/2024 showed a 1 x 0.8 cm mass in the dome of the liver. No clear evidence of metastatic disease in abdomen/pelvis. Brain MRI with and without contrast showed no evidence of intracranial metastatic disease. [id number] global cerebral volume loss, presumably moderate chronic microangiopathy. She underwent bronchoscopy and biopsy on current admission. This time patient appears comfortable and is resting. She is a poor historian. I spoke to her son Celio who stated that her mental status is at baseline. Because of her underlying psychiatric problems, she is easily overwhelmed and can not participate in conversation. Prior to her recent admissions, she was able to get around at home with a walker. Her who is 81 helps her with ADLs. At the request of the family, meeting was held at 08:00. In attendance were both her sons including healthcare proxy, son Celio, her , daughter, [id number] and shoe caser. They wanted to know about her cancer diagnosis, prognosis and treatment. Review of Systems - Neurologic Denies memory loss, Denies seizure-like activity PMFSH Medical History: Medical History (Last Updated 02/11/24 @ 13:06 by Denise Roche PA-C) Acquired hypothyroidism Allergic rhinitis Anemia Bipolar disorder COPD (chronic obstructive pulmonary disease) Diabetes mellitus Gait instability GERD (gastroesophageal reflux disease) High bilirubin History of vitamin D deficiency Hx of diabetes insipidus Hx of strabismus Hypertension Lymphadenopathy, mediastinal Metastatic carcinoma to lung Onset Date: ~2023 Obesity (BMI 30-39.9) PAF (paroxysmal atrial fibrillation) Pure hypercholesterolemia Family History: Family History (Last Reviewed 01/20/24 @ 03:17 by Urszula Esqueda MD) Father History of cerebral hemorrhage Mother History of cerebral hemorrhage Sister Breast cancer Surgical History: Surgical History (Last Updated 02/11/24 @ 13:06 by Denise Roche PA-C) History of bronchoscopy History of eye surgery History of left breast biopsy Hx of cataract surgery Onset Date: ~07/2017 Hx of colonoscopy Hx of dilation and curettage Social History: Social History (Last Reviewed 01/20/24 @ 03:17 by Urszula Esqueda MD) Living Situation History: Household Members: Spouse Housing: Apartment Do you presently have visiting nurse or other home services: No Tobacco History: Patient Tobacco Use Status: Former Tobacco user Tobacco use type: Cigarette Years Smoked: 20 e-Cigarette/Vaping Use: Never Used Second Hand Smoke Exposure: No Advance Directives: Advance Directives Date on File: 08/24/20 Occupation Assessmet: service: No Current occupational status: retired Home Medications and Allergies Current Medications: Current Medications Acetaminophen (Acetaminophen 325 Mg Tablet) 650 mg PO Q6H PRN PRN Reason: Pain, Mild (Pain Scale 1-3), fever or headache Last Admin: 02/13/24 17:26 Dose: 650 mg Acetaminophen (Acetaminophen Supp 650 Mg Supp.Rect) 650 mg HI Q4H PRN PRN Reason: Fever Or Pain Apixaban (Apixaban 5 Mg Tablet) 5 mg PO BID [facility] Last Admin: 02/14/24 09:53 Dose: 5 mg Aripiprazole (Aripiprazole 5 Mg Tablet) 5 mg PO DAILY [facility] Last Admin: 02/14/24 09:53 Dose: 5 mg Ascorbic Acid (Ascorbic Acid 500 Mg Tablet) 500 mg PO DAILY [facility] Last Admin: 02/14/24 09:53 Dose: 500 mg Atorvastatin Calcium (Atorvastatin Calcium 40 Mg Tablet) 40 mg PO BEDTIME [facility] Last Admin: 02/13/24 20:10 Dose: 40 mg Bisacodyl (Bisacodyl 10 Mg Supp.Rect) 10 mg HI DAILY PRN PRN Reason: Constipation Buspirone HCl (Buspirone Hcl 5 Mg Tablet) 5 mg PO BID [facility] Last Admin: 02/14/24 09:52 Dose: 5 mg Calcium Carbonate (Calcium Carbonate 750 Mg Tab.Chew) 750 mg PO Q4H PRN PRN Reason: Heartburn Last Admin: 02/14/24 09:51 Dose: 750 mg Divalproex Sodium (Divalproex Sodium Er 250 Mg Tab.Er.24h) 250 mg PO BEDTIME [facility] Last Admin: 02/13/24 20:10 Dose: 250 mg Divalproex Sodium (Divalproex Sodium Er 500 Mg Tab.Er.24h) 500 mg PO BID [facility] Last Admin: 02/14/24 09:53 Dose: 500 mg Ferrous Sulfate (Ferrous Sulfate 324 Mg Tablet.Dr) 324 mg PO DAILY [facility] Last Admin: 02/14/24 09:53 Dose: 324 mg Gabapentin (Gabapentin 100 Mg Capsule) 100 mg PO TID [facility] Last Admin: 02/14/24 09:53 Dose: 100 mg Glucose (Glucose Gel 15 Gm Gel..Gram.) 15 gm PO Q15M PRN; Protocol PRN Reason: per Hypoglycemia Standing Ord. Dextrose (D10) 250 mls @ 750 mls/hr IV Q15M PRN; Protocol PRN Reason: per Hypoglycemia Standing Ord. Ceftriaxone Sodium 1 gm/ (Sodium Chloride) 50 mls @ 100 mls/hr IV Q24H [facility] Last Infusion: 02/13/24 12:45 Dose: Infused Insulin Glargine (Insulin Glargine,Hum.Rec.Anlog 100 Unit/Ml 10 Ml Vial) 30 unit SUBCUT BEDTIME [facility] Last Admin: 02/13/24 21:44 Dose: 30 unit Insulin Human Lispro (Insulin Lispro 100 Unit/Ml 3 Ml Vial) 0 unit SUBCUT QIDACHS [facility]; Protocol Last Admin: 02/14/24 09:55 Dose: Not Given Insulin Human Lispro (Insulin Lispro 100 Unit/Ml 3 Ml Vial) 6 unit SUBCUT QIDACHS [facility] Last Admin: 02/14/24 09:55 Dose: Not Given Levothyroxine Sodium (Levothyroxine Sodium 100 Mcg Tablet) 100 mcg PO DAILY@0600 [facility] Last Admin: 02/14/24 05:33 Dose: 100 mcg Loperamide HCl (Loperamide Hcl 2 Mg Capsule) 2 mg PO Q4H PRN PRN Reason: Diarrhea Magnesium Hydroxide (Milk Of Magnesia 30 Ml Oral.Susp) 30 ml PO DAILY PRN PRN Reason: Constipation Melatonin (Melatonin 3 Mg Tablet) 6 mg PO BEDTIME PRN PRN Reason: Insomnia Metoprolol Succinate (Metoprolol Succinate Er 25 Mg Tab.Er.24h) 25 mg PO BID [facility]; Protocol Last Admin: 02/14/24 09:52 Dose: 25 mg Nystatin (Nystatin Powder 15 Gm Bottle) 1 appl TOPICAL BID [facility]; Protocol Last Admin: 02/13/24 20:20 Dose: 1 appl Omeprazole (Omeprazole 20 Mg Capsule.Dr) 20 mg PO DAILY@0630 [facility] Last Admin: 02/14/24 05:33 Dose: 20 mg Ondansetron HCl (Ondansetron Hcl 4 Mg/2 Ml Vial) 4 mg IVPUSH Q8H PRN PRN Reason: Nausea and Vomiting Last Admin: 02/08/24 00:22 Dose: 4 mg Oxybutynin Chloride (Oxybutynin Chloride Er 5 Mg Tab.Er.24) 5 mg PO DAILY [facility] Last Admin: 02/14/24 09:53 Dose: 5 mg Prednisone (Prednisone 20 Mg Tablet) 20 mg PO DAILY [facility] Last Admin: 02/14/24 09:52 Dose: 20 mg Risperidone (Risperidone 2 Mg Tablet) 2 mg PO BID [facility] Last Admin: 02/14/24 09:53 Dose: 2 mg Simethicone (Simethicone 80 Mg Tab.Chew) 80 mg PO QIDWMHS PRN PRN Reason: Gas Sodium Chloride (0.9 % Sodium Chloride Flush 3 Ml Syringe) 3 ml IVFLUSH QSHIFT [facility] Last Admin: 02/14/24 09:53 Dose: 3 ml Vitamin D (Cholecalciferol (Vitamin D3) 25 Mcg Tablet) 25 mcg PO DAILY [facility] Last Admin: 02/14/24 09:53 Dose: 25 mcg Home Medications ?Medication ?Instructions ?Recorded ?Confirmed ?Type lancing device with lancets kit #1 ea 05/11/20 12/05/23 History (TappIn Lancing Device kit) buspirone 5 mg tablet 5 mg PO BID anxiety 03/01/22 01/31/24 History divalproex 500 mg tablet,extended 500 mg PO BID 03/01/22 01/31/24 History release 24 hr risperidone 2 mg tablet 2 mg PO BID 05/20/23 01/31/24 History atorvastatin 40 mg tablet 40 mg PO BEDTIME 01/20/24 01/31/24 History nystatin 100,000 unit/gram topical 1 appl topical BID PRN rash under 01/20/24 01/31/24 History powder breasts acetaminophen 325 mg tablet 650 mg PO Q4H PRN pin 01/31/24 01/31/24 History (Tylenol) acetaminophen 650 mg rectal 650 mg HI Q4H PRN Fever Or Pain 01/31/24 01/31/24 History suppository bisacodyl 10 mg rectal suppository 10 mg HI DAILY PRN Constipation 01/31/24 01/31/24 History insulin glargine 100 unit/mL (3 24 unit subcut BEDTIME 01/31/24 01/31/24 History mL) subcutaneous pen (Lantus Solostar U-100 Insulin) metoprolol succinate 25 mg 25 mg PO BID 01/31/24 01/31/24 History tablet,extended release 24 hr naloxone 4 mg/actuation nasal spray 4 mg intranasal Q3M PRN Opiate 01/31/24 01/31/24 History Reversal sennosides 8.6 mg tablet (senna) 17.2 mg PO BID 01/31/24 01/31/24 History sodium phosphates 19 gram-7 118 ml HI ONCE PRN Constipation 01/31/24 01/31/24 History gram/118 mL enema (Fleet Enema) tramadol 50 mg tablet 50 mg PO Q8H PRN Pain 01/31/24 01/31/24 History Allergies Allergy/AdvReac Type Severity Reaction Status Date / Time amoxicillin [Amoxicillin] Allergy Intermediate SWELLING, Verified 01/31/24 13:34 rash Sulfa (Sulfonamide Allergy Intermediate itching & Verified 01/31/24 13:34 Antibiotics) bruising codeine [CODEINE] Allergy Unknown RASH Verified 01/31/24 13:34 dicyclomine Allergy Unknown Unknown Verified 01/31/24 13:34 lidocaine [LIDOCAINE] Allergy Unknown UNKNOWN Verified 01/31/24 13:34 lithium [LITHIUM] AdvReac Severe NEPHROGENIC Verified 01/31/24 13:34 DIABETES INSIPIDUS meclizine [Meclizine] AdvReac Intermediate INCREASES Verified 01/31/24 13:34 DIZZINESS simvastatin [SIMVASTATIN] AdvReac Intermediate MYALGIAS Verified 01/31/24 13:34 metronidazole [METRONIDAZOLE] AdvReac Mild FLU LIKE Verified 01/31/24 13:34 SYMPTOMS acyclovir AdvReac Unknown Unknown Verified 01/31/24 13:34 dulaglutide [From Trulicity] AdvReac Unknown dizziness, Verified 01/31/24 13:34 tongue swollen semaglutide [From Ozempic] AdvReac Unknown Dizziness, Verified 01/31/24 13:34 problems remembering Exam Vital signs: Vital Signs Temp 97.8 F 02/14/24 07:37 Pulse 58 02/14/24 07:37 Resp 18 02/14/24 07:37 BP 116/58 L 02/14/24 07:37 Pulse Ox 95 02/14/24 07:37 O2 Del Method Nasal Cannula 02/14/24 07:37 O2 Flow Rate 3 02/14/24 07:37 FiO2 60 02/07/24 11:14 Intake & Output 02/13/24 02/14/24 02/14/24 18:59 06:59 18:59 Intake Total 410 / 660 250 / 660 Output Total 600 / 900 300 / 900 Balance -190 / -240 -50 / -240 Urine Output (Average ml/kg/hr) 0.50 0.25 Intake: Intake, Oral Amount 360 / 610 250 / 610 Intake, IV Amount 50 / 50 cefTRIAXone sodium 1 gm In 0.9 50 / 50 % Sodium Chloride 50 ml @ 100 mls/hr IV Q24H [facility] Rx#: [id number] Output: Output, Urine Amount 600 / 600 Output, Urine Amount (Catheter) 300 / 300 purewick 300 / 300 Other: Breakfast % Eaten 50% Lunch % Eaten 75% Dinner % Eaten 50% Eating (Feeding) Ability Cueing Needed Number of Incontinent Voids 1 Urine Bedside Commode Urine Color Cloudy Weight 100.9 kg BMI result Body Mass Index 33.8 - Constitutional Present: no acute distress - Routine HEENT Exam Head: Present: normal inspection - Routine Respiratory Exam Absent: accessory muscle use, stridor, wheezes - Routine Cardiovascular Exam Cardiovascular: Present: S1, S2 Data - Labs CBC & Chem 7: 02/13/24 06:09 02/13/24 06:10 Labs: Laboratory Last Values WBC 13.3 X10*3/uL (4.8-10.8) H 02/13/24 06:09 RBC 3.64 X10*6/uL (4.20-5.50) L 02/13/24 06:09 Hgb 11.6 g/dl (12.0-16.0) L 02/13/24 06:09 Hct 37.6 % (37.0-47.0) 02/13/24 06:09 MCV 103.3 fL (80.0-98.0) H 02/13/24 06:09 MCH 31.9 pg (27.0-33.0) 02/13/24 06:09 MCHC 30.9 g/dl (31.0-35.0) L 02/13/24 06:09 RDW 13.3 % (11.0-16.0) 02/13/24 06:09 Plt Count 194 X10*3/uL (160-400) 02/13/24 06:09 MPV 9.3 fL (9.4-12.3) L 02/13/24 06:09 Immature Gran % (Auto) 4.7 % (0.0-0.4) H 02/01/24 07:10 Neut % (Auto) 82.8 % (45-73) H 02/01/24 07:10 Lymph % (Auto) 7.5 % (20-40) L 02/01/24 07:10 [place] % (Auto) 4.9 % (2-11) 02/01/24 07:10 Eos % (Auto) 0.0 % (0-4) 02/01/24 07:10 Baso % (Auto) 0.1 % (0-2) 02/01/24 07:10 Lymph # (Auto) 0.9 X10*3/uL (1.2-4.9) L 02/01/24 07:10 [place] # (Auto) 0.6 X10*3/uL (0.1-1.2) 02/01/24 07:10 Eos # (Auto) 0.0 X10*3/uL (0.0-0.4) 02/01/24 07:10 Baso # (Auto) 0.0 X10*3/uL (0.0-0.2) 02/01/24 07:10 Abs Immat Gran (auto) 0.53 X10*3/uL (0.00-0.03) H 02/01/24 07:10 Absolute Neuts (auto) 9.3 x10*3/uL (2.0-8.3) H 02/01/24 07:10 Absolute Nucleated RBC 0.000 X10*3/uL (0.0-0.012) 02/13/24 06:09 Nucleated RBC % (auto) 0.0 /100WBC (0.0-0.2) 02/13/24 06:09 Hold Purple Top SEE NOTE 01/31/24 14:41 Hold Blue Top SEE NOTE 01/31/24 14:41 O2 Saturation 92.0 % 02/07/24 10:27 ABG pH at Pt Temp 7.34 (7.35-7.45) L 02/07/24 10:27 ABG pCO2 at Pt Temp 65 mmHg (32-45) H* 02/07/24 10:27 ABG pO2 at Pt Temp 78 mmHg (83-108) L 02/07/24 10:27 ABG HCO3 35 mmol/L (22-26) H 02/07/24 10:27 ABG Base Excess (Actual) 7.6 mmol/L 02/07/24 10:27 VBG pH 7.49 (7.32-7.43) H 02/07/24 17:28 VBG pCO2 45 mmHg 02/07/24 17:28 VBG pO2 190 mmHg 02/07/24 17:28 VBG HCO3 34 mmol/L (22-26) H 02/07/24 17:28 VBG O2 Saturation 99.0 % 02/07/24 17:28 VBG Base Excess 9.8 mmol/L 02/07/24 17:28 Sodium 141 mmol/L (135-145) 02/13/24 06:10 Potassium 4.5 mmol/L (3.3-5.1) 02/13/24 06:10 Chloride 101 mmol/L (96-108) 02/13/24 06:10 Carbon Dioxide 31 mmol/L (22-29) H 02/13/24 06:10 Anion Gap 14 (12-20) 02/13/24 06:10 BUN 20 mg/dL (9-16) H 02/13/24 06:10 Creatinine 0.93 mg/dL (0.5-1.4) 02/13/24 06:10 Estim Creat Clear Calc 63.9 02/13/24 06:10 Estimated GFR 59 02/13/24 06:10 POC Glucose 87 mg/dL (60-115) 02/14/24 07:18 Random Glucose 114 mg/dL (60-115) 02/04/24 05:33 Fasting Glucose 94 mg/dL (60-99) 02/13/24 06:10 Calcium 9.6 mg/dL (8.4-10.2) 02/13/24 06:10 Magnesium 2.2 mg/dL (1.6-2.6) 02/13/24 06:10 Urine Color Dark Yellow 02/13/24 11:23 Urine Appearance Turbid 02/13/24 11:23 Urine pH 6.0 (5.0-9.0) 02/13/24 11:23 Ur Specific [place] 1.015 (1.005-1.025) 02/13/24 11:23 Urine Protein 30 (1+) mg/dL (Neg-Trace) H 02/13/24 11:23 Urine Glucose (UA) Negative mg/dL (Negative) 02/13/24 11:23 Urine Ketones Negative mg/dL (Negative) 02/13/24 11:23 Urine Blood Large (3+) (Negative) H 02/13/24 11:23 Urine Nitrite Positive (Negative) H 02/13/24 11:23 Ur Leukocyte Esterase Large (3+) (Negative) H 02/13/24 11:23 Urine RBC >20 /HPF (0-2) H 02/13/24 11:23 Urine WBC >50 /HPF (0-5) H 02/13/24 11:23 Ur Squamous Epith Cells 0-2 /HPF (0-2) 02/13/24 11:23 Urine Bacteria 4+ (None Seen) 02/13/24 11:23 Hyaline Casts 0-2 /LPF (0-2) 02/13/24 11:23 Stl C. cayetanensis PCR Not Detected (Not Detect.) 02/03/24 04:32 Stool Rotavirus A PCR Not Detected (Not Detect.) 02/03/24 04:32 Stl Adenov F 40/41 PCR Not Detected (Not Detect.) 02/03/24 04:32 Stool Astrovirus (PCR) Not Detected (Not Detect.) 02/03/24 04:32 Stool Campylobacter PCR Not Detected (Not Detect.) 02/03/24 04:32 Stool Cryptosporidium PCR Not Detected (Not Detect.) 02/03/24 04:32 Stl Sh Tox Pr E STEC PCR Not Detected (Not Detect.) 02/03/24 04:32 Stool E coli O157 PCR Not applicable (Not Detect.) 02/03/24 04:32 Stl Enterotoxigenic E PCR Not Detected (Not Detect.) 02/03/24 04:32 Stool EPEC (PCR) Not Detected (Not Detect.) 02/03/24 04:32 Stool EAEC (PCR) Not Detected (Not Detect.) 02/03/24 04:32 Stl E. histolytica PCR Not Detected (Not Detect.) 02/03/24 04:32 Stool Giardia Lamblia PCR Not Detected (Not Detect.) 02/03/24 04:32 Stl P. shigelloides PCR Not Detected (Not Detect.) 02/03/24 04:32 Stool Salmonella PCR Not Detected (Not Detect.) 02/03/24 04:32 Stool Sapovirus (PCR) Not Detected (Not Detect.) 02/03/24 04:32 Stl Shigella/EIEC PCR Not Detected (Not Detect.) 02/03/24 04:32 St Y.enterocolitica PCR Not Detected (Not Detect.) 02/03/24 04:32 Stool Vibrio (PCR) Not Detected (Not Detect.) 02/03/24 04:32 Stl Vibrio cholerae PCR Not Detected (Not Detect.) 02/03/24 04:32 Stl Norovirus GI/GII PCR Not Detected (Not Detect.) 02/03/24 04:32 Leuk/Lym Interpretation See Note 02/07/24 11:30 C. difficile Tox B Gene NEGATIVE (Negative) 02/03/24 04:32 Influenza Type A (PCR) NEGATIVE (Negative) 01/31/24 13:41 Influenza Type B (PCR) NEGATIVE (Negative) 01/31/24 13:41 RSV RNA Qual (PCR) NEGATIVE (Negative) 01/31/24 13:41 SARS-CoV-2 RNA (RT-PCR) NEGATIVE (Negative) 01/31/24 13:41 - Imaging Radiologist's impression: ITS Impressions Chest CTA 01/31/24 16:59 IMPRESSION: No pulmonary embolism. Right paratracheal mediastinal mass measuring up to 4.6 cm, suspicious for metastatic disease given the pulmonary findings, or potentially a primary neoplasm such as lymphoma. Again demonstrated is a 2.7 x 2.6 cm irregularly shaped nodule in the anterior apical right upper lobe. As previously stated on chest CT dated 01/19/2024 this is concerning for malignancy. There is a 1.3 x 1.4 cm nodule along the posterior left lower lobe abutting the pleura, unchanged from prior examination. Small bilateral pleural effusions, right greater than left. VTE: Negative. Chest X-Ray 02/07/24 10:50 IMPRESSION: 1. The endotracheal tube terminates at 3.7 cm above the britta. 2. Increased airspace densities in the left lower lung base, indeterminate could represent a combination of worsening atelectasis and pleural effusion. 3. Redemonstration of a large paratracheal mass, best visualized on prior CT. 4. Redemonstration of nodular-like abnormality in the apical right upper lobe, best visualized on prior CT. Electronically signed by: Estee Cuevas MD 02/07/2024 02:17 PM EDT Assessment and Plan Patient Active problem list reviewed?: Yes (1) Small cell lung cancer Status: Acute Assessment and plan: 1. This is a 78-year-old woman diagnosed with small cell lung cancer on 02/07/2024. She underwent bronchoscopy and biopsy of 4R lymph node which revealed small cell carcinoma. IHC positive for pancytokeratin and synaptophysin. Flow cytometry does not reveal lymphoma. On 01/19/[address] chest which showed a 2.8 x 2.6 cm right upper lobe mass concerning for malignancy. Additionally left lower lobe mass measuring 1.5 x 1.3 cm, mediastinal mass measuring 3.8 x 5.4 cm concerning for adenopathy. Multiple additional pleural mass along the right pleura suspicious for metastatic disease. CT abdomen/pelvis with contrast performed 01/21/2024 showed a 1 x 0.8 cm mass in the dome of the liver. No clear evidence of metastatic disease in abdomen/pelvis. However the radiologist read the pleural-based masses in the left lower lobe as possible fibrous tumor of pleura rather than metastasis. Brain MRI with and without contrast showed no evidence of intracranial metastatic disease. [id number] global cerebral volume loss, presumably moderate chronic microangiopathy. I discussed above findings with her son Celio who is also her healthcare proxy. She appears to have advanced stage small cell lung cancer, PET-CT will further help inaccurate staging. She does not have brain Mets. Her performance status is low. She was admitted twice for hypoxic respiratory failure this month. She has had acute on chronic COPD exacerbation. Today I discussed with several family members some of them via video telephone call about her diagnosis which is advanced small cell lung cancer. At this time we do not know if the liver lesion is metastatic disease or not. I discussed that for limited stage small cell lung cancer, concurrent chemo radiation therapy is given. For advanced small cell lung cancer, chemo immunotherapy is the standard of care. Unfortunately, none of these can be given in the hospital. Overall, her performance status is quite poor and she has multiple comorbidities, she would be a poor candidate for concurrent therapy. I also discussed with them that for radiation therapy she will have to be referred to 1 of the other hospitals in the area as we do not offer radiation therapy at [facility]. Palliative chemotherapy alone can be offered if she is able to tolerate it. The family is aware that this treatment can not be administered if she is in a intermediate. They will have to take her home if they are planning to go ahead with treatment. I also discussed possible side effects of chemo immunotherapy such as gastrointestinal side effects, cytopenias, risk of infection and organ damage. They will think about it. They are going to explore the possibility of using private help along with VNA services. They were advised to call the office if they had any further questions. 45 minutes were spent with the patient, her family. Mary, the pillowcase turner was also present during part of the meeting. Thank you. - Time Spent With Patient Time Spent with Patient (in minutes): 45
[2024-02-14] MEDS: Nystatin Powder 15 GM BOTTLE 1 APPL TOPICAL ×2 (10:13→21:01)
--- NOTE | 2024-02-14 10:21 | PM.DS ---
DS: Providers Provider Date of Service: 02/16/24 Date of admission: 01/31/24 20:31 Date of discharge: 02/16/24 Primary care physician: Brown Dickson MD Consults: 02/05/24 16:04 Consult to Pulmonology Routine Consulting Provider: [facility] Reason for consultation: copd/lung mass Has provider been notified: No 02/12/24 07:41 Consult to Hematology / Oncology Routine Consulting Provider: [facility] [place]ology Reason for consultation: small cell lung ca DS: Diagnosis Discharge Diagnosis (1) Small cell lung cancer: Status: Acute DS: Summary Hospital Course Hospital Course: from initial hpi: 78-year-old female with a PMH significant for?paroxysmal AFib on anticoagulation HLD, insulin-dependent type 2 diabetes, hypothyroidism, former tobacco user, likely COPD, recently diagnosed right lung mass, and bipolar disorder who presents to the ED from [facility]?for increasing shortness a breath and acute on chronic hypoxia. Patient was recently admitted to the hospital on 01/19-01/26 where she was treated for acute hypoxemic respiratory failure likely secondary to COPD exacerbation. At that time CT imaging of chest found mass in the right lung with lymphadenopathy, mediastinal mass, and small mass on hepatic dome concerning for metastasis. Patient was seen by pulmonology and Oncology and elected to undergo an EBUS with [facility] outpatient. Patient was discharged to rehab on 2L NC. At SNF patient had been experiencing shortness of breath and increased oxygen demands for the past 2 days. Supplemental O2 was increased to 4L, but staff report they were unable to increase patient's O2 saturation above 84%. Of note, during last admission on 01/19 patient was seen by Psychiatry who deemed patient did not have capacity to make decisions about her management as she was unable to learn and retain new information regarding her present medical condition. Healthcare proxy (pt's daughter) was invoked. Currently patient denies any acute medical complaints, but patient is noted to be somnolent with increased work of breathing and O2 saturation dips into the mid 80s with little movement. Daughter is at bedside and notes patient has had a significant, marked decline since previous admission. Prior to 01/18 patient was able to ambulate on her own with the assistance of a seated walker. However, patient has been bed-bound since last admission and overall more somnolent and less cognitively aware. No reports of cough, fever, or chills. In the ED pt was satting as low as 90% on 5 L OxyMask. Labs were significant for leukocytosis of 11.9 and bicarb 31, otherwise grossly unremarkable. Stable H&H. No significant electrolyte abnormalities. Renal function baseline. Tested negative for flu, RSV, COVID. CTA of chest found no pulmonary embolism, but redemonstrated 2.7 x 2.6 cm irregularly shaped nodule in anterior apical right upper lobe suspicious for malignancy, as well as right paratracheal mediastinal mass measuring up to 4.6 cm suspicious for metastatic disease, and small bilateral pleural effusions with right greater than left. Pt was treated with Solu-Medrol, DuoNebs, and acetaminophen. Pt will be admitted to the hospital for treatment and further evaluation of acute hypoxic respiratory failure in the setting of exacerbation of obstructive lung disease in a patient with likely metastatic lung cancer. hospital course: Patient was admitted for acute hypoxic respiratory failure secondary to COPD with acute decompensation. She was treated with steroids and DuoNebs and symptoms returned to baseline. For small-cell lung cancer with mediastinal and possible liver Mets she was seen by Oncology. Treatment options include outpatient PET-CT and then if local would be chemo and radiation and if distant meds would be chemo immunotherapy. However, this is not curable. After family meeting decision made to not pursue disease directed treatments and [facility]. Patient noted to have UTI was treated with ceftriaxone and will continue on 3 more days of cefuroxime. For diarrhea this resolved. For paroxysmal atrial fibrillation she was continued on Eliquis and Toprol. For diabetes was continued on insulin sliding scale. For hyperlipidemia was continue statin. For hypothyroidism she was continued on Synthroid. For bipolar disorder she was continued on Depakote and Abilify. Time Attestation Discharge Coordination Time (in mins): 37 Quality: Safe Use of Opioids Does Pt have an Active Cancer Diagnosis on the Problem List?: Yes Opioid Measure Date for [facility] Report: 01/17/24 Opioid Measure Time for [facility] Report: 08:29 Quality: Stroke Does the patient have a stroke diagnosis?: No Physical Exam Vital Signs: Vital Signs: Last Vital Signs Temp 97.8 F 02/14/24 07:37 Pulse 58 02/14/24 07:37 Resp 18 02/14/24 07:37 BP 116/58 L 02/14/24 07:37 Pulse Ox 95 02/14/24 07:37 O2 Del Method Nasal Cannula 02/14/24 07:37 O2 Flow Rate 3 02/14/24 07:37 FiO2 60 02/07/24 11:14 Oxygen Flow Rate 14 01/31/24 13:23 BMI result Body Mass Index 33.8 General:awake ,comfortable Resp: diminished bilaterally CVS: S1, S2, RRR GI: +BS, NT, no distention Skin: Warm, dry Neuro: Cranial nerves II-XII grossly intact bilaterally. Motor grossly intact bilaterally Extremities: No edema Psych: Appropriate affect DS: Data Data Completed and Pending Completed studies during hospitalization [Text1]: Pending at discharge 02/07/24 10:51 Cytology [PTH] Routine Labs on day of discharge: Laboratory Results - last 24 hr 02/13/24 02/13/24 02/13/24 11:13 11:23 15:28 POC Glucose 164 H 257 H Urine Color Dark Yellow Urine Appearance Turbid Urine pH 6.0 Ur Specific [place] 1.015 Urine Protein 30 (1+) H Urine Glucose (UA) Negative Urine Ketones Negative Urine Blood Large (3+) H Urine Nitrite Positive H Ur Leukocyte Esterase Large (3+) H Urine RBC >20 H Urine WBC >50 H Ur Squamous Epith Cells 0-2 Urine Bacteria 4+ Hyaline Casts 0-2 02/13/24 02/14/24 20:22 07:18 POC Glucose 200 H 87 Urine Color Urine Appearance Urine pH Ur Specific [place] Urine Protein Urine Glucose (UA) Urine Ketones Urine Blood Urine Nitrite Ur Leukocyte Esterase Urine RBC Urine WBC Ur Squamous Epith Cells Urine Bacteria Hyaline Casts Discharge Plan Discharge Anticipated Discharge Date/Time: 02/14/24 10:15 Patient Disposition: Xfer SNF Discharge Diagnosis: small cell lung cancer, copd Referrals: [facility] [place] [Outside] - 1 Week Brown Dickson MD [Primary Care Provider] - 1 Week Discharge Medications: New Eliquis 5 mg Tablet 5 mg PO BID Qty: 0 0RF prednisone 20 mg Tablet 20 mg PO DAILY 5 Days Qty: 0 0RF morphine 10 mg/5 mL solution 5 mg PO Q4H PRN (Reason: dyspnea) Qty: 100 0RF Rx Instructions: Partial Fill upon patient request. cefuroxime axetil 500 mg tablet 500 mg PO BID Qty: 6 0RF Continued (DME) lancing device with lancets [InterMed Discovery Lanc Device] Kit See Rx Instructions .ROUTE .MEDSUPPLY Qty: 1 Rx Instructions: As directed ascorbic acid (vitamin C) [Vitamin C] 500 mg tablet 500 mg PO DAILY Qty: 90 3RF nystatin 100,000 unit/mL suspension 1 ml buccal BID PRN (Reason: oral thrush) 30 Days Qty: 60 3RF Rx Instructions: administer 1/2 of dose in each side of the mouth ferrous fumarate [Ferrocite] 324 mg (106 mg iron) tablet 324 mg PO DAILY Qty: 100 2RF cholecalciferol (vitamin D3) [Vitamin D3] 25 mcg (1,000 unit) tablet 25 mcg PO DAILY Qty: 90 5RF gabapentin 100 mg capsule 100 mg PO TID Qty: 90 3RF metformin 500 mg tablet extended release 24 hr 500 mg PO BID Qty: 180 1RF (DME) pen needle, diabetic [BD Flory 2nd Gen Pen Needle] 32 gauge x 5/32 needle See Rx Instructions .ROUTE .COMPLEX Qty: 100 0RF Dose Instruction: DIRECTED INJECTS 4 X/SDAY Rx Instructions: DIRECTED INJECTS 4 X/SDAY oxybutynin chloride 5 mg tablet 5 mg PO BID Qty: 180 1RF levothyroxine 100 mcg tablet 100 mcg PO DAILY 90 Days Qty: 90 1RF pantoprazole 40 mg tablet,delayed release (DR/EC) 40 mg PO DAILY@0630 Qty: 90 2RF atorvastatin 40 mg tablet 40 mg PO BEDTIME nystatin 100,000 unit/gram powder 1 appl topical BID PRN (Reason: rash under breasts) aripiprazole 5 mg tablet 5 mg PO DAILY Qty: 1 0RF divalproex [Depakote ER] 250 mg tablet extended release 24 hr 250 mg PO BEDTIME Qty: 1 0RF docusate sodium 100 mg Capsule 100 mg PO BID Qty: 1 0RF magnesium hydroxide [Milk of Magnesia] 400 mg/5 mL Suspension 30 ml PO DAILY PRN (Reason: Constipation) Qty: 1 0RF Rx Instructions: For no BM in 3 days (Do not administer W/dialysis/Renal failure) polyethylene glycol 3350 17 gram Powder In Packet 17 g PO BID Qty: 1 0RF insulin lispro [Admelog U-100 Insulin lispro] 100 unit/mL Solution 6 unit subcut QIDACHS Qty: 1 0RF insulin lispro [Admelog U-100 Insulin lispro] 100 unit/mL Solution See Protocol subcut QIDACHS Qty: 1 0RF Protocol: Insulin Correction Scale Less than or equal to 110 ---- Give (units): 0 111 to 150 Give (units): 0 151 to 200 Give (units): 2 201 to 250 Give (units): 4 251 to 300 Give (units): 6 301 to 350 Give (units): 10 Greater than 350 Give (units): 12 Call MD if Blood Glucose > : 350 sennosides [senna] 8.6 mg Tablet 17.2 mg PO BID acetaminophen [Tylenol] 325 mg Tablet 650 mg PO Q4H MDD 3 gm/day PRN (Reason: pin) acetaminophen 650 mg Suppository 650 mg MO Q4H MDD 3 gm/day PRN (Reason: Fever Or Pain) tramadol 50 mg Tablet 50 mg PO Q8H PRN (Reason: Pain) bisacodyl 10 mg Suppository 10 mg MO DAILY PRN (Reason: Constipation) Rx Instructions: For no BM if M.O.M ineffective naloxone 4 mg/actuation [place],Non-Aerosol 4 mg INTRANASAL Q3M PRN (Reason: Opiate Reversal) Rx Instructions: spray 1 dose into ONE nostril; alternate nostrils w each dose until help arrives Fleet Enema 19-7 gram/118 mL enema 118 ml MO ONCE PRN (Reason: Constipation) Rx Instructions: For no BM &if Bisacodyl supp. DO NOT GIVE WITH DIALYSIS/RENAL FAILURE. metoprolol succinate 25 mg tablet extended release 24 hr 25 mg PO BID insulin glargine [Lantus Solostar U-100 Insulin] 100 unit/mL (3 mL) insulin pen 24 unit subcut BEDTIME lorazepam 0.5 mg tablet 0.5 mg PO Q12H PRN (Reason: Agitation) 10 Days Qty: 10 0RF divalproex 500 mg tablet extended release 24 hr 500 mg PO BID Patient Comments: mood stabilizer buspirone 5 mg tablet 5 mg PO BID Patient Comments: for anxiety (DME) pen needle, diabetic [Easy Comfort Pen [place]] 33 gauge x 5/32 needle See Rx Instructions .Route Qty: 100 5RF Rx Instructions: As directed injects 4 X/sday risperidone 2 mg tablet 2 mg PO BID Discontinued enoxaparin 100 mg/mL Syringe 100 mg subcut Q12H Qty: 10 0RF No Action (DME) hospital bed See Rx Instructions .Route .MEDSUPPLY Qty: 1 0RF Rx Instructions: As directed Discharge Orders: Discharge Order (Routine); Ordered 02/16/24 Ordered By: Nelson To Diet: Advance to usual diet Activity on Discharge: As tolerated Stand Alone Forms: Patient Portal Discharge page Print Language: Greek Care Plan Goals: comfort Health Concerns: small cell lung cancer Plan of Treatment: end of life care, hospice at [facility] Assessment: see above
[2024-02-14] MEDS: Acetaminophen 325 MG TABLET 650 MG PO ×2 (10:58→18:38)
[2024-02-14 11:16] LABS: Glucose, Whole Blood 185 mg/dL (60-115)
[2024-02-14] MEDS: cefTRIAXone sodium 1 GM in 0.9 % Sodium Chloride 50 ML IV (12:28)
[2024-02-14] MEDS: Insulin Lispro 100 UNIT/ML 3 ML VIAL SUBCUT ×3 (12:28→21:03)
[2024-02-14] MEDS: Insulin Lispro 100 UNIT/ML 3 ML VIAL 6 UNIT SUBCUT ×3 (12:28→21:03)
[2024-02-14 15:31] VITALS: BP 112/57; PULSE 64; RESP 18; TEMP 36.4; O2SAT 93
--- NOTE | 2024-02-14 16:05 | MHC.CM.PN ---
Patient remains medically cleared for dc. CM + oncologist met with family this morning, extensive conversation re: dc planning. [facility], family prefers [facility] but [facility] has denied. Per [facility] liaison, they will disenroll patient from [facility]. [facility] will be active 02/15 and [facility] will accept that day for STR. Family is aware and happy w/ plan.
[2024-02-14 16:10] LABS: Glucose, Whole Blood 310 mg/dL (60-115)
[2024-02-14 20:00] VITALS: BP 112/53; PULSE 60; RESP 20; TEMP 36.3; O2SAT 92
[2024-02-14 20:49] LABS: Glucose, Whole Blood 213 mg/dL (60-115)
[2024-02-14] MEDS: Atorvastatin Calcium 40 MG TABLET PO (21:01)
[2024-02-14] MEDS: Divalproex Sodium ER 250 MG TAB.ER.24H PO (21:02)
[2024-02-14] MEDS: Insulin Glargine,Hum.rec.anlog 100 UNIT/ML 10 ML VIAL 30 UNIT SUBCUT (21:02)
[2024-02-14 22:15] VITALS: PULSE 60
[2024-02-14] MEDS: Milk of Magnesia 30 ML ORAL.SUSP PO (23:22)
[2024-02-15] MEDS: Acetaminophen 325 MG TABLET 650 MG PO ×3 (01:17→21:15)
--- NOTE | 2024-02-15 02:47 | PC.NURSE ---
[id number]; Provider Dheeraj notified of HR of 60, asked to hold night dose of Metoprolol
[2024-02-15 04:00] VITALS: BP 122/59; PULSE 58; RESP 20; TEMP 36.2; O2SAT 94
[2024-02-15] MEDS: Levothyroxine Sodium 100 MCG TABLET PO (05:36)
[2024-02-15] MEDS: Omeprazole 20 MG CAPSULE.DR PO (05:36)
[2024-02-15 07:45] LABS: Glucose, Whole Blood 160 mg/dL (60-115)
[2024-02-15 08:00] VITALS: BP 129/60; PULSE 60; RESP 18; TEMP 36; O2SAT 95
[2024-02-15] MEDS: Insulin Lispro 100 UNIT/ML 3 ML VIAL 6 UNIT SUBCUT ×4 (08:22→21:17)
[2024-02-15] MEDS: Insulin Lispro 100 UNIT/ML 3 ML VIAL SUBCUT ×4 (08:22→21:17)
[2024-02-15] MEDS: 0.9 % Sodium Chloride Flush 3 ML SYRINGE IVFLUSH ×2 (08:23→15:48)
[2024-02-15] MEDS: Apixaban 5 MG TABLET PO ×2 (08:25→21:15)
[2024-02-15] MEDS: ARIPiprazole 5 MG TABLET PO (08:25)
[2024-02-15] MEDS: Ascorbic Acid 500 MG TABLET PO (08:25)
[2024-02-15] MEDS: Cholecalciferol (Vitamin D3) 25 MCG TABLET PO (08:26)
[2024-02-15] MEDS: busPIRone HCl 5 MG TABLET PO ×2 (08:26→21:15)
[2024-02-15] MEDS: Ferrous Sulfate 324 MG TABLET.DR PO (08:27)
[2024-02-15] MEDS: Gabapentin 100 MG CAPSULE PO ×3 (08:27→21:16)
[2024-02-15] MEDS: Divalproex Sodium ER 500 MG TAB.ER.24H PO ×2 (08:27→21:16)
[2024-02-15] MEDS: Metoprolol Succinate ER 25 MG TAB.ER.24H PO ×2 (08:27→21:21)
[2024-02-15] MEDS: oxyBUTYnin chloride ER 5 MG TAB.ER.24 PO (08:28)
[2024-02-15] MEDS: risperiDONE 2 MG TABLET PO ×2 (08:29→21:16)
[2024-02-15] MEDS: predniSONE 20 MG TABLET PO (08:29)
[2024-02-15] MEDS: Nystatin Powder 15 GM BOTTLE 1 APPL TOPICAL ×2 (08:34→21:24)
--- NOTE | 2024-02-15 09:46 | P.PNIM_ITS ---
Subjective Subjective Date of Service: 02/15/24 Interval History: dysuria resolved Physical Exam 2 Vital Signs: Vital Signs: Last Vital Signs Temp 96.8 F 02/15/24 08:00 Pulse 60 02/15/24 08:00 Resp 18 02/15/24 08:00 BP 129/60 02/15/24 08:00 Pulse Ox 95 02/15/24 08:00 O2 Del Method Nasal Cannula 02/15/24 08:00 O2 Flow Rate 3 02/15/24 08:00 FiO2 60 02/07/24 11:14 Oxygen Flow Rate 14 01/31/24 13:23 BMI result Body Mass Index 33.8 General:awake ,comfortable Resp: diminished bilaterally CVS: S1, S2, RRR GI: +BS, NT, no distention Skin: Warm, dry Neuro: Cranial nerves II-XII grossly intact bilaterally. Motor grossly intact bilaterally Extremities: No edema Psych: Appropriate affect Objective Data Active Medications Acetaminophen (Acetaminophen 325 Mg Tablet) 650 mg PO Q6H PRN PRN Reason: Pain, Mild (Pain Scale 1-3), fever or headache Last Admin: 02/15/24 08:38 Dose: 650 mg Documented By: HARVEY Acetaminophen (Acetaminophen Supp 650 Mg Supp.Rect) 650 mg ID Q4H PRN PRN Reason: Fever Or Pain Apixaban (Apixaban 5 Mg Tablet) 5 mg PO BID [facility] Last Admin: 02/15/24 08:25 Dose: 5 mg Documented By: HARVEY Aripiprazole (Aripiprazole 5 Mg Tablet) 5 mg PO DAILY [facility] Last Admin: 02/15/24 08:25 Dose: 5 mg Documented By: HARVEY Ascorbic Acid (Ascorbic Acid 500 Mg Tablet) 500 mg PO DAILY [facility] Last Admin: 02/15/24 08:25 Dose: 500 mg Documented By: HARVEY Atorvastatin Calcium (Atorvastatin Calcium 40 Mg Tablet) 40 mg PO BEDTIME [facility] Last Admin: 02/14/24 21:01 Dose: 40 mg Documented By: VICKI Bisacodyl (Bisacodyl 10 Mg Supp.Rect) 10 mg ID DAILY PRN PRN Reason: Constipation Buspirone HCl (Buspirone Hcl 5 Mg Tablet) 5 mg PO BID [facility] Last Admin: 02/15/24 08:26 Dose: 5 mg Documented By: HARVEY Calcium Carbonate (Calcium Carbonate 750 Mg Tab.Chew) 750 mg PO Q4H PRN PRN Reason: Heartburn Last Admin: 02/14/24 09:51 Dose: 750 mg Documented By: COY Divalproex Sodium (Divalproex Sodium Er 250 Mg Tab.Er.24h) 250 mg PO BEDTIME [facility] Last Admin: 02/14/24 21:02 Dose: 250 mg Documented By: VICKI Divalproex Sodium (Divalproex Sodium Er 500 Mg Tab.Er.24h) 500 mg PO BID [facility] Last Admin: 02/15/24 08:27 Dose: 500 mg Documented By: HARVEY Ferrous Sulfate (Ferrous Sulfate 324 Mg Tablet.Dr) 324 mg PO DAILY [facility] Last Admin: 02/15/24 08:27 Dose: 324 mg Documented By: HARVEY Gabapentin (Gabapentin 100 Mg Capsule) 100 mg PO TID [facility] Last Admin: 02/15/24 08:27 Dose: 100 mg Documented By: HARVEY Glucose (Glucose Gel 15 Gm Gel..Gram.) 15 gm PO Q15M PRN; Protocol PRN Reason: per Hypoglycemia Standing Ord. Dextrose (D10) 250 mls @ 750 mls/hr IV Q15M PRN; Protocol PRN Reason: per Hypoglycemia Standing Ord. Ceftriaxone Sodium 1 gm/ (Sodium Chloride) 50 mls @ 100 mls/hr IV Q24H [facility] Last Infusion: 02/14/24 12:58 Dose: Infused Documented By: COY Insulin Glargine (Insulin Glargine,Hum.Rec.Anlog 100 Unit/Ml 10 Ml Vial) 30 unit SUBCUT BEDTIME [facility] Last Admin: 02/14/24 21:02 Dose: 30 unit Documented By: VICKI Insulin Human Lispro (Insulin Lispro 100 Unit/Ml 3 Ml Vial) 0 unit SUBCUT QIDACHS [facility]; Protocol Last Admin: 02/15/24 08:22 Dose: 2 unit Documented By: HARVEY Insulin Human Lispro (Insulin Lispro 100 Unit/Ml 3 Ml Vial) 6 unit SUBCUT QIDACHS [facility] Last Admin: 02/15/24 08:22 Dose: 6 unit Documented By: HARVEY Levothyroxine Sodium (Levothyroxine Sodium 100 Mcg Tablet) 100 mcg PO DAILY@0600 [facility] Last Admin: 02/15/24 05:36 Dose: 100 mcg Documented By: VICKI Loperamide HCl (Loperamide Hcl 2 Mg Capsule) 2 mg PO Q4H PRN PRN Reason: Diarrhea Magnesium Hydroxide (Milk Of Magnesia 30 Ml Oral.Susp) 30 ml PO DAILY PRN PRN Reason: Constipation Last Admin: 02/14/24 23:22 Dose: 30 ml Documented By: VICKI Melatonin (Melatonin 3 Mg Tablet) 6 mg PO BEDTIME PRN PRN Reason: Insomnia Metoprolol Succinate (Metoprolol Succinate Er 25 Mg Tab.Er.24h) 25 mg PO BID [facility]; Protocol Last Admin: 02/15/24 08:27 Dose: 25 mg Documented By: HARVEY Nystatin (Nystatin Powder 15 Gm Bottle) 1 appl TOPICAL BID [facility]; Protocol Last Admin: 02/15/24 08:34 Dose: 1 appl Documented By: HARVEY Omeprazole (Omeprazole 20 Mg Capsule.) 20 mg PO DAILY@0630 [facility] Last Admin: 02/15/24 05:36 Dose: 20 mg Documented By: VICKI Ondansetron HCl (Ondansetron Hcl 4 Mg/2 Ml Vial) 4 mg IVPUSH Q8H PRN PRN Reason: Nausea and Vomiting Last Admin: 02/08/24 00:22 Dose: 4 mg Documented By: WILL Oxybutynin Chloride (Oxybutynin Chloride Er 5 Mg Tab.Er.24) 5 mg PO DAILY [facility] Last Admin: 02/15/24 08:28 Dose: 5 mg Documented By: HRAVEY Prednisone (Prednisone 20 Mg Tablet) 20 mg PO DAILY [facility] Last Admin: 02/15/24 08:29 Dose: 20 mg Documented By: HARVEY Risperidone (Risperidone 2 Mg Tablet) 2 mg PO BID [facility] Last Admin: 02/15/24 08:29 Dose: 2 mg Documented By: HARVEY Simethicone (Simethicone 80 Mg Tab.Chew) 80 mg PO QIDWMHS PRN PRN Reason: Gas Sodium Chloride (0.9 % Sodium Chloride Flush 3 Ml Syringe) 3 ml IVFLUSH QSHIFT [facility] Last Admin: 02/15/24 08:23 Dose: 3 ml Documented By: HARVEY Vitamin D (Cholecalciferol (Vitamin D3) 25 Mcg Tablet) 25 mcg PO DAILY [facility] Last Admin: 02/15/24 08:26 Dose: 25 mcg Documented By: HARVEY Labs 02/13/24 06:09 02/13/24 06:10 Labs: Laboratory Results - last 24 hr 02/14/24 02/14/24 02/14/24 11:07 15:48 20:45 POC Glucose 185 H 310 H 213 H 02/15/24 07:36 POC Glucose 160 H Assessment and Plan (1) COPD exacerbation: Status: Acute Assessment and Plan: 78F PMH significant for?paroxysmal AFib on anticoagulation HLD, insulin- dependent type 2 diabetes, hypothyroidism, former tobacco user, likely COPD, recently diagnosed right lung mass, and bipolar disorder who presented to the ED from [facility]?for increasing shortness a breath and acute on chronic hypoxia. Was admitted to the hospital for treatment and further evaluation of acute hypoxic respiratory failure in the setting of exacerbation of obstructive lung disease in a patient with likely metastatic lung cancer. Acute hypoxic respiratory failure in the setting of COPD with acute exacerbation seems improved Continue DuoNebs, prednisone taper.,Titrate supplemental O2 with goal of 92 small cell lung cancer with mediastinal and and possible liver mets option for outpatient pet-ct, then would be either chemo with radiation if local, or chemo with immunotherapy if distant mets family had meeting with oncology and opted for hospice care uti rocephin, follow up cultures Diarrhea improved. Paroxysmal AFib changed back to eliquis as biopsy done, continue toprol Insulin-dependent type 2 diabetes Sliding-scale insulin, Lantus Diabetic diet HLD Continue statin Hypothyroidism Continue levothyroxine Bipolar disorder Continue depakote, abilify Chronic constipation Patient on significant bowel regimen, continue DNR/DNI DVT Prophylaxis: eliquis reason for continued hospitalization:safe dispo Quality Stroke Does the patient have a stroke diagnosis?: No VTE Prior VTE?: No VTE Risk Level:: Medical - moderate - high VTE Device Contraindication: Treatment Not Indicated VTE Drug Contraindication: N/A - Med Ordered
[2024-02-15 11:36] LABS: Glucose, Whole Blood 161 mg/dL (60-115)
[2024-02-15] MEDS: cefTRIAXone sodium 1 GM in 0.9 % Sodium Chloride 50 ML IV (13:04)
[2024-02-15 15:56] VITALS: BP 115/72; PULSE 65; RESP 16; TEMP 36; O2SAT 93
[2024-02-15 18:12] LABS: Glucose, Whole Blood 231 mg/dL (60-115)
[2024-02-15 20:00] VITALS: BP 128/58; PULSE 64; RESP 20; TEMP 36.1; O2SAT 93
[2024-02-15 20:52] LABS: Glucose, Whole Blood 243 mg/dL (60-115)
[2024-02-15] MEDS: Atorvastatin Calcium 40 MG TABLET PO (21:15)
[2024-02-15] MEDS: Melatonin 3 MG TABLET 6 MG PO (21:16)
[2024-02-15] MEDS: Insulin Glargine,Hum.rec.anlog 100 UNIT/ML 10 ML VIAL 30 UNIT SUBCUT (21:17)
[2024-02-15] MEDS: Divalproex Sodium ER 250 MG TAB.ER.24H PO (21:17)
[2024-02-15 21:21] VITALS: BP 135/62; PULSE 63
[2024-02-15] MEDS: ondansetron HCL 4 MG/2 ML VIAL IVPUSH (22:22)
[2024-02-16 04:00] VITALS: BP 108/55; PULSE 54; RESP 20; TEMP 35.8; O2SAT 95
[2024-02-16 05:31] VITALS: TEMP 36.4
[2024-02-16] MEDS: Omeprazole 20 MG CAPSULE.DR PO (05:33)
[2024-02-16] MEDS: Levothyroxine Sodium 100 MCG TABLET PO (05:33)
[2024-02-16 06:58] LABS: Glucose, Whole Blood 132 mg/dL (60-115)
[2024-02-16 08:00] VITALS: BP 115/58; PULSE 60; RESP 17; TEMP 36.3; O2SAT 93
[2024-02-16] MEDS: Metoprolol Succinate ER 25 MG TAB.ER.24H PO (08:24)
[2024-02-16] MEDS: predniSONE 20 MG TABLET PO (08:24)
[2024-02-16] MEDS: ARIPiprazole 5 MG TABLET PO (08:25)
[2024-02-16] MEDS: Apixaban 5 MG TABLET PO (08:25)
[2024-02-16] MEDS: Ascorbic Acid 500 MG TABLET PO (08:25)
[2024-02-16] MEDS: Divalproex Sodium ER 500 MG TAB.ER.24H PO (08:25)
[2024-02-16] MEDS: Cholecalciferol (Vitamin D3) 25 MCG TABLET PO (08:25)
[2024-02-16] MEDS: busPIRone HCl 5 MG TABLET PO (08:25)
[2024-02-16] MEDS: Ferrous Sulfate 324 MG TABLET.DR PO (08:25)
[2024-02-16] MEDS: risperiDONE 2 MG TABLET PO (08:25)
[2024-02-16] MEDS: oxyBUTYnin chloride ER 5 MG TAB.ER.24 PO (08:25)
[2024-02-16] MEDS: Gabapentin 100 MG CAPSULE PO (08:25)
[2024-02-16] MEDS: Insulin Lispro 100 UNIT/ML 3 ML VIAL 6 UNIT SUBCUT ×2 (08:25→11:44)
[2024-02-16] MEDS: 0.9 % Sodium Chloride Flush 3 ML SYRINGE IVFLUSH (08:26)
[2024-02-16] MEDS: Nystatin Powder 15 GM BOTTLE 1 APPL TOPICAL (08:38)
[2024-02-16 11:13] LABS: Glucose, Whole Blood 160 mg/dL (60-115)
[2024-02-16] MEDS: cefTRIAXone sodium 1 GM in 0.9 % Sodium Chloride 50 ML IV (11:44)
[2024-02-16] MEDS: Insulin Lispro 100 UNIT/ML 3 ML VIAL SUBCUT (11:44)
[2024-02-16] MEDS: Acetaminophen 325 MG TABLET 650 MG PO (12:47)
== END 2024-02-16 14:16 | disposition skilled nursing facility (03) | DRG 840 ==
LOC: HO.ED 20:43 → HO.EDOVER 20:52 → HO.IMC 21:42 → HO.S3 02-02 17:42 → HO.ICU 02-07 09:02 → HO.S3 02-07 12:33
PROVIDERS: Internal Medicine; Internal Medicine Pulmonary Disease; Pathology Anatomic Pathology & Clinical Pathology; Student in an Organized Health Care Education/Training Program; Admitting Provider Student in an Organized Health Care Education/Training Program; Emergency Provider Emergency Medicine; PCP Internal Medicine; Visit Provider Internal Medicine
DX: C77.1 Secondary and unspecified malignant neoplasm of intrathoracic lymph nodes (principal); J96.01 Acute respiratory failure with hypoxia; J44.1 Chronic obstructive pulmonary disease with (acute) exacerbation; C78.7 Secondary malignant neoplasm of liver and intrahepatic bile duct; C34.11 Malignant neoplasm of upper lobe, right bronchus or lung; N39.0 Urinary tract infection, site not specified; Z66 Do not resuscitate; R19.7 Diarrhea, unspecified; I48.0 Paroxysmal atrial fibrillation; E11.9 Type 2 diabetes mellitus without complications; E03.9 Hypothyroidism, unspecified; F31.9 Bipolar disorder, unspecified; K59.09 Other constipation; E78.2 Mixed hyperlipidemia; Z20.822 Contact with and (suspected) exposure to COVID-19; Z87.891 Personal history of nicotine dependence; Z79.4 Long term (current) use of insulin; Z79.890 Hormone replacement therapy; Z79.899 Other long term (current) drug therapy
CPT/HCPCS: 0241U; 36415; 36600; 71045; 71275; 80048; 81001; 82803; 82947; 83735; 85025; 85027; 87086; 87088; 87186; 87493; 87507; 88172; 88173; 88177; 88184; 88185; 88305; 88341; 88342; 94002; 94640; 94799; 97162; 97530; 99285; J0696; J1650; J2405; J2704; J2919

== ENCOUNTER → 2024-01-31 20:31 | Outpatient (BNV) | payer MEDICARE, SELFPAY | PROVIDERS: Admitting Provider Student in an Organized Health Care Education/Training Program; Emergency Provider Emergency Medicine; PCP Internal Medicine; Visit Provider Internal Medicine Pulmonary Disease | DX: C77.9 Secondary and unspecified malignant neoplasm of lymph node, unspecified (principal); C34.11 Malignant neoplasm of upper lobe, right bronchus or lung | CPT/HCPCS: 31652; 99223 ==

== ENCOUNTER → 2024-01-31 20:31 | Outpatient (BNV) | payer MEDICARE, SELFPAY | PROVIDERS: Admitting Provider Student in an Organized Health Care Education/Training Program; Emergency Provider Emergency Medicine; PCP Internal Medicine; Visit Provider Internal Medicine | DX: C34.90 Malignant neoplasm of unspecified part of unspecified bronchus or lung (principal) | CPT/HCPCS: 99222; 99232 ==

== ENCOUNTER → 2024-01-31 20:31 | Outpatient (BNV) | payer MEDICARE, SELFPAY | PROVIDERS: Admitting Provider Student in an Organized Health Care Education/Training Program; Emergency Provider Emergency Medicine; PCP Internal Medicine; Visit Provider Student in an Organized Health Care Education/Training Program | DX: C34.90 Malignant neoplasm of unspecified part of unspecified bronchus or lung (principal) | CPT/HCPCS: 99223; 99231; 99232; 99239 ==

== ENCOUNTER 2024-02-27 10:03 | Inpatient (IN) | payer MEDICARE, SELFPAY ==
[2024-02-27] VITALS (8 sets, daily range): BP systolic 108–129; BP diastolic 46–76; PULSE 82–93; RESP 18–24; TEMP 36.9; O2SAT 87–94; BMI 38.4
--- NOTE | ~2024-02-27 | XR_ITS ---
EXAMINATION: XR CHEST CLINICAL INFORMATION: Dyspnea COMPARISON: Chest radiograph from 02/07/2024 TECHNIQUE: Frontal view of the chest was obtained. FINDINGS: Interval opacification of the right mid and lower lung field suggesting a moderate to large pleural effusion with subjacent atelectasis. Interval removal of endotracheal tube. Mild vascular prominence. Left basilar atelectasis. No pneumothorax. Trachea is midline. Cardiac mediastinal silhouette is stable. Aorta demonstrates atherosclerotic calcification. Osseous structures are intact. Soft tissues are unremarkable. XR/XR chest 1V IMPRESSION: 1. Interval opacification of the right mid and lower lung field suggesting a moderate to large pleural effusion with subjacent atelectasis. 2. Interval removal of endotracheal tube. 3. Mild vascular prominence. 4. Left basilar atelectasis. Electronically signed by: Anila Duarte MD 02/27/2024 11:23 AM EDT
--- NOTE | 2024-02-27 10:16 | ECG_ITS ---
Test Reason : DYSPNEA Blood Pressure : / mmHG Vent. Rate : 087 BPM Atrial Rate : 087 BPM P-R Int : 164 ms QRS Dur : 080 ms QT Int : 316 ms P-R-T Axes : 040 006 018 degrees QTc Int : 380 ms Normal sinus rhythm Nonspecific ST abnormality Abnormal ECG When compared with ECG of 19-JAN-2024 22:01, Nonspecific T wave abnormality, improved in Inferior leads Nonspecific T wave abnormality no longer evident in Anterolateral leads Referred By: Flakita Garcia Electronically Signed By:NATALIE LOPEZ
--- NOTE | 2024-02-27 10:18 | ED_ITS ---
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 EMS gave O2 10L and neb with improvement. The patient notes she is short of breath denies pain, fevers, cough. She is weak appearing does not provide much other history. MD elicited complaint: shortness of breath Pertinent past history: COPD Onset (ago): hour(s) (few) Context: recent illness Timing: improved Severity: moderate Exacerbating factors: lying flat Relieving factors: oxygen and bronchodilators Known history of: COPD Associated symptoms: denies other symptoms Treatment prior to arrival: oxygen and bronchodilator Related Data Home Medications ?Medication ?Instructions ?Recorded ?Confirmed lancing device with lancets kit #1 ea 05/11/20 12/05/23 ([employer] Lancing Device kit) buspirone 5 mg tablet 5 mg PO BID anxiety 03/01/22 01/31/24 divalproex 500 mg tablet,extended 500 mg PO BID 03/01/22 01/31/24 release 24 hr risperidone 2 mg tablet 2 mg PO BID 05/20/23 01/31/24 atorvastatin 40 mg tablet 40 mg PO BEDTIME 01/20/24 01/31/24 nystatin 100,000 unit/gram topical 1 appl topical BID PRN rash under 01/20/24 01/31/24 powder breasts acetaminophen 325 mg tablet 650 mg PO Q4H PRN pin 01/31/24 01/31/24 (Tylenol) acetaminophen 650 mg rectal 650 mg MO Q4H PRN Fever Or Pain 01/31/24 01/31/24 suppository bisacodyl 10 mg rectal suppository 10 mg MO DAILY PRN Constipation 01/31/24 01/31/24 insulin glargine 100 unit/mL (3 24 unit subcut BEDTIME 01/31/24 01/31/24 mL) subcutaneous pen (Lantus Solostar U-100 Insulin) metoprolol succinate 25 mg 25 mg PO BID 01/31/24 01/31/24 tablet,extended release 24 hr naloxone 4 mg/actuation nasal spray 4 mg intranasal Q3M PRN Opiate 01/31/24 01/31/24 Reversal sennosides 8.6 mg tablet (senna) 17.2 mg PO BID 01/31/24 01/31/24 sodium phosphates 19 gram-7 118 ml MO ONCE PRN Constipation 01/31/24 01/31/24 gram/118 mL enema (Fleet Enema) tramadol 50 mg tablet 50 mg PO Q8H PRN Pain 01/31/24 01/31/24 Previous Rx's ?Medication ?Instructions ?Recorded pen needle, diabetic 33 gauge x #100 ea 03/29/22 (Easy Comfort Pen [place]) ascorbic acid (vitamin C) 500 mg 500 mg PO DAILY #90 tabs 03/14/23 tablet (Vitamin C) ferrous fumarate 324 mg (106 mg 324 mg PO DAILY #100 tabs 03/19/23 iron) tablet (Ferrocite) nystatin 100,000 unit/mL oral 1 ml buccal BID PRN oral thrush 30 03/19/23 suspension days #60 mL cholecalciferol (vitamin D3) 25 25 mcg PO DAILY #90 tabs 06/11/23 mcg (1,000 unit) tablet (Vitamin D3) gabapentin 100 mg capsule 100 mg PO TID #90 caps 11/25/23 metformin 500 mg tablet,extended 500 mg PO BID #180 tabs 12/14/23 release 24 hr pen needle, diabetic 32 gauge x #100 ea 12/29/23 (BD Flory 2nd Gen Pen Needle) oxybutynin chloride 5 mg tablet 5 mg PO BID #180 tabs 01/08/24 aripiprazole 5 mg tablet 5 mg PO DAILY #1 tab 01/27/24 divalproex 250 mg tablet,extended 250 mg PO BEDTIME #1 tab 01/27/24 release 24 hr (Depakote ER) docusate sodium 100 mg capsule 100 mg PO BID #1 cap 01/27/24 insulin lispro 100 unit/mL 6 unit (0.06 mL) subcut QIDACHS #1 01/27/24 subcutaneous solution (Admelog mL U-100 Insulin lispro) insulin lispro 100 unit/mL See Protocol subcut QIDACHS #1 mL 01/27/24 subcutaneous solution (Admelog U-100 Insulin lispro) magnesium hydroxide 400 mg/5 mL 30 ml PO DAILY PRN Constipation #1 01/27/24 oral suspension (Milk of Magnesia) mL polyethylene glycol 3350 17 gram 17 g PO BID #1 ea 01/27/24 oral powder packet levothyroxine 100 mcg tablet 100 mcg PO DAILY 90 days #90 tabs 02/04/24 pantoprazole 40 mg tablet,delayed 40 mg PO DAILY@0630 #90 tabs 02/04/24 release apixaban 5 mg tablet (Eliquis) 5 mg PO BID #0 tabs 02/14/24 cefuroxime axetil 500 mg tablet 500 mg PO BID #6 tabs 02/14/24 lorazepam 0.5 mg tablet 0.5 mg PO Q12H PRN Agitation 10 02/14/24 days #10 tabs morphine 10 mg/5 mL oral solution 5 mg (2.5 mL) PO Q4H PRN dyspnea 02/14/24 #100 mL prednisone 20 mg tablet 20 mg PO DAILY 5 days #0 tabs 02/14/24 hospital bed #1 ea 02/18/24 Allergies Allergy/AdvReac Type Severity Reaction Status Date / Time amoxicillin [Amoxicillin] Allergy Intermediate SWELLING, Verified 02/27/24 10:17 rash Sulfa (Sulfonamide Allergy Intermediate itching & Verified 02/27/24 10:17 Antibiotics) bruising codeine [CODEINE] Allergy Unknown RASH Verified 02/27/24 10:17 dicyclomine Allergy Unknown Unknown Verified 02/27/24 10:17 lidocaine [LIDOCAINE] Allergy Unknown UNKNOWN Verified 02/27/24 10:17 lithium [LITHIUM] AdvReac Severe NEPHROGENIC Verified 02/27/24 10:17 DIABETES INSIPIDUS meclizine [Meclizine] AdvReac Intermediate INCREASES Verified 02/27/24 10:17 DIZZINESS simvastatin [SIMVASTATIN] AdvReac Intermediate MYALGIAS Verified 02/27/24 10:17 metronidazole [METRONIDAZOLE] AdvReac Mild FLU LIKE Verified 02/27/24 10:17 SYMPTOMS acyclovir AdvReac Unknown Unknown Verified 02/27/24 10:17 dulaglutide [From Trulicity] AdvReac Unknown dizziness, Verified 02/27/24 10:17 tongue swollen semaglutide [From Ozempic] AdvReac Unknown Dizziness, Verified 02/27/24 10:17 problems remembering Review of Systems 2 Review of Systems: Constitutional : No Fever, No Chills ENT/Mouth : No sore throat, No Rhinorrhea, No Swallowing Difficulty Eyes: No Eye Pain, No Swelling, No Redness Cardiovascular : No Chest Pain, positive SOB, No Orthopnea, no Edema Respiratory : No Cough, No Sputum, No Wheezing, positive dyspnea Gastrointestinal : No Nausea, No Vomiting, No Diarrhea, No abdominal Pain, No Hematochezia, No Melena Genitourinary : No Dysuria, No Urinary Frequency, No Hematuria Musculoskeletal : No joint pain, No Myalgias Skin : No Skin Lesions, No rash Neuro : No Weakness, No Numbness, No Dizziness, No Headache Psych : No Anxiety/Panic, No Depression All other systems reviewed and are negative PMFSH Past Medical History Attestation statement: The following information was validated with the patient. Source: old records reviewed Medical History Metastatic carcinoma to lung (~2023) Lymphadenopathy, mediastinal Bipolar disorder PAF (paroxysmal atrial fibrillation) Hypertension Pure hypercholesterolemia Diabetes mellitus Acquired hypothyroidism GERD (gastroesophageal reflux disease) COPD (chronic obstructive pulmonary disease) Gait instability Obesity (BMI 30-39.9) Anemia Allergic rhinitis High bilirubin Hx of strabismus Hx of diabetes insipidus History of vitamin D deficiency Surgical History History of bronchoscopy Hx of colonoscopy History of eye surgery History of left breast biopsy Hx of dilation and curettage Hx of cataract surgery (~07/2017) Family History Family History Father History of cerebral hemorrhage Mother History of cerebral hemorrhage Sister Breast cancer Social History Social History Household Members: Spouse Housing: Apartment Do you presently have visiting nurse or other home services: No Alcohol intake: never Comment: sitter at bedside Patient Tobacco Use Status: Former Tobacco user Tobacco use type: Cigarette Years Smoked: 20 Smoked in Last 30 Days: No e-Cigarette/Vaping Use: Never Used Second Hand Smoke Exposure: No Use of substances other than those prescribed or required for medical reasons: No Advance Directives: Yes Advance Directives on File: Yes Advance Directives Date on File: 08/24/20 Do you have a plan to hurt others: No Plan service: No Current occupational status: retired Cognitive needs: Yes (wheelchair) Hearing needs: No Vision needs: Yes (reading glasses) Physical Exam 2 Vital Signs: Vital Signs: Last Vital Signs Temp 98.4 F 02/27/24 10:18 Pulse 82 02/27/24 14:13 Resp 19 02/27/24 14:13 BP 119/54 L 02/27/24 14:13 Pulse Ox 90 L 02/27/24 14:13 O2 Del Method High Flow Nasal C annula 02/27/24 12:34 O2 Flow Rate 50 02/27/24 12:34 BMI result Body Mass Index 38.4 Appearance: Alert. Oriented X2. Mild acute distress. Eyes: Pupils equal, round and reactive to light. ENT: Pharynx normal. Neck: Normal inspection. Neck supple. CVS: Normal heart rate and rhythm. Pulses normal. Respiratory: Mild respiratory distress labored and tachypnea. Breath sounds diffuse wheezing with crackles in both bases noted Abdomen: Soft and nontender. Skin: Skin warm and dry. Normal skin color. Normal skin turgor. Extremities: No lower extremity edema. No calf ttp Neuro: Oriented X 2. No motor deficit. No sensory deficit. Course Course Course Narrative: family deciding whether or not they want to proceed with drain of large R pleural effusion which is the cause of her symptoms son and father discussing aware we need to reverse and hold her eliquis Reevaluation(s) Reevaluation #1: HCP is Katarina her daughter who is RN she wants mom to be on morphine gtt at this time and wants to be on hospice no further intervention no drains does not want any other treatments and therapy to be done at this time 1220pm Medications Administered Generic Name Dose Route Start Last Admin Trade Name Freq PRN Reason Stop Dose Admin Morphine Sulfate 100 mg in 100 mls @ 0 mls/hr 02/27/24 13:15 02/27/24 14:13 Morphine Sulfate/Ns IVCONT 2 mg/hr .Q0M FRANCINE 2 mls/hr Administration Protocol Per Protocol Discontinued Medications Generic Name Dose Route Start Last Admin Trade Name Nohemy PRN Reason Stop Dose Admin Albuterol Sulfate 7.5 mg/ 0 mg 02/27/24 10:22 02/27/24 10:40 Albuterol/Ipratropium 3 ml INHALE 02/27/24 10:23 10 each ONCE ONE Administration Methylprednisolone Sodium Succinate 60 mg 02/27/24 10:17 02/27/24 10:37 Methylprednisolone Sod Succ 125 Mg/2 Ml Vial IVPUSH 02/27/24 10:18 60 mg ONCE ONE Administration Medical Decision Making Medical Decision Making MDM Narrative: 78 yo female with PMH of COPD on titration O2 looks like up to 5L NC at some points, 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 Will obtain labs, CXR, possible effusion, COPD and worsening COPD in setting of mass. Patient denies fevers or pain. Doubt VTE she is compliant with her eliquis Differential Diagnosis Differential Diagnoses: The differential diagnosis associated with the presentation includes effusion, COPD and worsening COPD in setting of mass Admission/Observation Consideration of admission/observation: Escalation of care including admission/observation considered discussed with FREDY jungn is likely imminent once we take her off high flow her sats are in the 70[address] on morphine gtt for comfort at family's wishes and then remove high flow plan to admit as unable to get hospice in place Consult Healthcare Provider Management of the patient was discussed with: Hospitalist (will admit) and Client Services Representative Lab Data [facility] Lab Attestation statement: I reviewed the patient's lab results. 02/27/24 10:28 02/27/24 10:28 Labs: Lab Results 02/27/24 02/27/24 02/27/24 Range/Units 10:27 10:28 10:29 WBC 7.7 (4.8-10.8) X10*3/uL RBC 3.42 L (4.20-5.50) X10*6/uL Hgb 11.2 L (12.0-16.0) g/dl Hct 35.0 L (37.0-47.0) % MCV 102.3 H (80.0-98.0) fL MCH 32.7 (27.0-33.0) pg MCHC 32.0 (31.0-35.0) g/dl RDW 15.2 (11.0-16.0) % Plt Count 174 (160-400) X10*3/uL MPV 8.7 L (9.4-12.3) fL Immature Gran % (Auto) Cancelled Neut % (Auto) Cancelled Lymph % (Auto) Cancelled [place] % (Auto) Cancelled Eos % (Auto) Cancelled Baso % (Auto) Cancelled Lymph # (Auto) Cancelled [place] # (Auto) Cancelled Eos # (Auto) Cancelled Baso # (Auto) Cancelled Abs Immat Gran (auto) Cancelled Absolute Neuts (auto) Cancelled Absolute Nucleated RBC 0.110 H (0.0-0.012) X10*3/uL Nucleated RBC % (auto) 1.4 H (0.0-0.2) /100WBC Neutrophils % (Manual) 64 (45-73) % Band Neutrophils % 6 H (3-5) % Lymphocytes % (Manual) 11 L (20-40) % Monocytes % (Manual) 5 (2-11) % Eosinophils % (Manual) 1 (0-4) % Metamyelocytes % 9 % Myelocytes % 4 % Abs Neuts (Manual) 5.4 (2.0-8.3) X10*3/uL Lymphocytes # (Manual) 0.8 L (1.2-4.9) X10*3/uL Monocytes # (Manual) 0.4 (0.1-1.2) X10*3/uL Eosinophils # (Manual) 0.1 (0.0-0.4) X10*3/uL Metamyelocytes # 0.7 X10*3/uL Myelocytes # 0.3 X10*/uL Nucleated RBCs 1 H (0-0) /100WBC Platelet Estimate NORMAL (NORMAL) Plt Morphology Comment NORMAL RBC Morphology NOTED Basophilic Stippling 1+ (0-2) /OIF Macrocytosis 1+ (5-14) /OIF [place] Cells 1+ (0-2) /OIF VBG pH (7.32-7.43) VBG pCO2 mmHg VBG pO2 mmHg VBG HCO3 (22-26) mmol/L VBG O2 Saturation % VBG Base Excess mmol/L Sodium 135 (135-145) mmol/L Potassium 5.0 (3.3-5.1) mmol/L Chloride 92 L (96-108) mmol/L Carbon Dioxide 33 H (22-29) mmol/L Anion Gap 15 (12-20) BUN 11 (9-16) mg/dL Creatinine 1.01 (0.5-1.4) mg/dL Estim Creat Clear Calc 58.8 Estimated GFR 53 Random Glucose 169 H (60-115) mg/dL Lactic Acid 1.1 (0.5-2.0) mmol/L Calcium 9.5 (8.4-10.2) mg/dL Magnesium 1.9 (1.6-2.6) mg/dL Total Bilirubin 0.4 (0.0-1.0) mg/dL Direct Bilirubin 0.1 (0.0-0.5) mg/dL AST 35 H (5-31) U/L ALT 15 (0-31) U/L Alkaline Phosphatase 70 (39-117) U/L Troponin I High Sens < 2.7 (<3.5-17.0) ng/L C-Reactive Protein 2.41 H (< or = 0.50) mg/dL B-Natriuretic Peptide 76 (<100) pg/mL Total Protein 6.3 L (6.5-8.0) g/dL Albumin 3.1 L (3.5-5.0) g/dL Procalcitonin 0.20 ng/mL Valproic Acid 40.8 L (50.0-100.0) mcg/mL Influenza Type A (PCR) NEGATIVE (Negative) Influenza Type B (PCR) NEGATIVE (Negative) RSV RNA Qual (PCR) NEGATIVE (Negative) SARS-CoV-2 RNA (RT-PCR) NEGATIVE (Negative) 02/27/24 Range/Units 10:34 WBC (4.8-10.8) X10*3/uL RBC (4.20-5.50) X10*6/uL Hgb (12.0-16.0) g/dl Hct (37.0-47.0) % MCV (80.0-98.0) fL MCH (27.0-33.0) pg MCHC (31.0-35.0) g/dl RDW (11.0-16.0) % Plt Count (160-400) X10*3/uL MPV (9.4-12.3) fL Immature Gran % (Auto) Neut % (Auto) Lymph % (Auto) [place] % (Auto) Eos % (Auto) Baso % (Auto) Lymph # (Auto) [place] # (Auto) Eos # (Auto) Baso # (Auto) Abs Immat Gran (auto) Absolute Neuts (auto) Absolute Nucleated RBC (0.0-0.012) X10*3/uL Nucleated RBC % (auto) (0.0-0.2) /100WBC Neutrophils % (Manual) (45-73) % Band Neutrophils % (3-5) % Lymphocytes % (Manual) (20-40) % Monocytes % (Manual) (2-11) % Eosinophils % (Manual) (0-4) % Metamyelocytes % % Myelocytes % % Abs Neuts (Manual) (2.0-8.3) X10*3/uL Lymphocytes # (Manual) (1.2-4.9) X10*3/uL Monocytes # (Manual) (0.1-1.2) X10*3/uL Eosinophils # (Manual) (0.0-0.4) X10*3/uL Metamyelocytes # X10*3/uL Myelocytes # X10*/uL Nucleated RBCs (0-0) /100WBC Platelet Estimate (NORMAL) Plt Morphology Comment RBC Morphology Basophilic Stippling /OIF Macrocytosis /OIF [place] Cells /OIF VBG pH 7.44 H (7.32-7.43) VBG pCO2 57 mmHg VBG pO2 38 mmHg VBG HCO3 39 H (22-26) mmol/L VBG O2 Saturation 63.0 % VBG Base Excess 12.7 mmol/L Sodium (135-145) mmol/L Potassium (3.3-5.1) mmol/L Chloride (96-108) mmol/L Carbon Dioxide (22-29) mmol/L Anion Gap (12-20) BUN (9-16) mg/dL Creatinine (0.5-1.4) mg/dL Estim Creat Clear Calc Estimated GFR Random Glucose (60-115) mg/dL Lactic Acid (0.5-2.0) mmol/L Calcium (8.4-10.2) mg/dL Magnesium (1.6-2.6) mg/dL Total Bilirubin (0.0-1.0) mg/dL Direct Bilirubin (0.0-0.5) mg/dL AST (5-31) U/L ALT (0-31) U/L Alkaline Phosphatase (39-117) U/L Troponin I High Sens (<3.5-17.0) ng/L C-Reactive Protein (< or = 0.50) mg/dL B-Natriuretic Peptide (<100) pg/mL Total Protein (6.5-8.0) g/dL Albumin (3.5-5.0) g/dL Procalcitonin ng/mL Valproic Acid (50.0-100.0) mcg/mL Influenza Type A (PCR) (Negative) Influenza Type B (PCR) (Negative) RSV RNA Qual (PCR) (Negative) SARS-CoV-2 RNA (RT-PCR) (Negative) Independent Interpretation I performed an independent interpretation of an: EKG and Plain X-Ray (large R pleural effusion) Interpretation: Rate:87 Rhythm: NSR [place]: normal Normal P waves. Normal DINESH. Normal QRS complex. ST T wave : normal no GLORIA qTC:380 prior studies: no acute ischemia The study has been interpreted contemporaneously by me. . Radiology Impression Discussion of test interpretation with radiology: I have reviewed the radiologist's reading. Independent Historian Clinical information obtained from an independent historian. History obtained from or confirmed by: Spouse, EMS and Other (HCP) External Record Review External record reviewed: Inpatient record Critical Care Time Critical Care Time Critical Care Time: Yes Total Critical Care Time: 45 Attestation: family discussions, review of notes, PROGRAM MANAGEMENT SPECIALIST discussion, hospice medications and start, high flow I attest to this time spent taking care of the patient Discharge Plan Discharge Clinical Impression: Pleural effusion, Hypoxia Metastatic primary lung cancer Qualifiers: Laterality: unspecified laterality Qualified Code(s): C34.90 - Malignant neoplasm of unspecified part of unspecified bronchus or lung Patient Disposition: Admitted As Inpatient Interventions: Admission Worksheet (ED) Last Done: 02/27/24 14:47
[2024-02-27 10:37] LABS: VBG Base Excess 12.7 mmol/L; VBG HCO3 39 mmol/L (22-26); VBG pCO2 57 mmHg; VBG pH 7.44 (7.32-7.43); VBG pO2 38 mmHg
[2024-02-27] MEDS: methylPREDNISolone Sod Succ 125 MG/2 ML VIAL 60 MG IVPUSH (10:37)
[2024-02-27 10:39] LABS: Venous Blood Gas Refer to POC result
[2024-02-27 10:39] LABS: Hemoglobin 11.2 g/dl (12.0-16.0); Mean Corpuscular Hemoglobin 32.7 pg (27.0-33.0); Mean Corpuscular Volume 102.3 fL (80.0-98.0); Mean Platelet Volume 8.7 fL (9.4-12.3); Platelet Count 174 X10*3/uL (160-400); Red Blood Count 3.42 X10*6/uL (4.20-5.50); Red Cell Distribution Width 15.2 % (11.0-16.0); White Blood Count 7.7 X10*3/uL (4.8-10.8)
[2024-02-27] MEDS: Albuterol Sulfate 7.5 MG, Albuterol/Iprat 2.5/0.5MG 3 ML 3 ML INHALE (10:40)
--- NOTE | 2024-02-27 10:40 | PC.NURSE ---
Pt comes to ED today via EMS from [facility]. Per report, Pt was sating in the 70's this AM and was given a Nebulizer with good result. Pt desats in route to ED and was given an additional nebulizer in ambulance with good result into the 90's. VSS, afebrile. Pt denies pain at this time. Respiratory at bedside for treatment. 20 LAC placed by EMS--flushes without complication. Blood labs completed.
[2024-02-27 10:41] LABS: NRBC Pct Auto 1.4 /100WBC (0.0-0.2)
[2024-02-27 10:54] LABS: Lactic Acid 1.1 mmol/L (0.5-2.0)
[2024-02-27 10:59] LABS: Valproate 40.8 mcg/mL (50.0-100.0)
[2024-02-27 11:03] LABS: B Type Natriuretic Peptide 76 pg/mL (<100)
[2024-02-27 11:06] LABS: Troponin-I High Sensitivity < 2.7 ng/L (<3.5-17.0)
[2024-02-27 11:07] LABS: Band Neutrophils Percent 6 % (3-5); Eosinophils Absolute Manual 0.1 X10*3/uL (0.0-0.4); Eosinophils Percent Manual 1 % (0-4); Lymphocytes Absolute Manual 0.8 X10*3/uL (1.2-4.9); Lymphocytes Percent Manual 11 % (20-40); Metamyelocytes Absolute 0.7 X10*3/uL; Metamyelocytes Percent 9 %; Monocytes Absolute Manual 0.4 X10*3/uL (0.1-1.2); Monocytes Percent Manual 5 % (2-11); Myelocytes Absolute 0.3 X10*/uL; Myelocytes Percent 4 %; Neutrophils Absolute Manual 5.4 X10*3/uL (2.0-8.3); Neutrophils Percent Manual 64 % (45-73); Nucleated Red Blood Cells 1 /100WBC (0-0)
[2024-02-27 11:09] LABS: Basophilic Stippling 1+ (0-2) /OIF; Burr Cells 1+ (0-2) /OIF; Macrocytosis 1+ (5-14) /OIF; Platelet Estimate NORMAL (NORMAL); Platelet Morphology Comment NORMAL; RBC Morphology NOTED
[2024-02-27 11:10] LABS: Alanine Aminotransferase 15 U/L (0-31); Albumin Level 3.1 g/dL (3.5-5.0); Alkaline Phosphatase 70 U/L (39-117); Anion Gap 15 (12-20); Aspartate Amino Transferase 35 U/L (5-31); Bilirubin Direct 0.1 mg/dL (0.0-0.5); Bilirubin Total 0.4 mg/dL (0.0-1.0); Blood Urea Nitrogen 11 mg/dL (9-16); C Reactive Protein 2.41 mg/dL (< or = 0.50); Calcium 9.5 mg/dL (8.4-10.2); Carbon Dioxide 33 mmol/L (22-29); Chloride 92 mmol/L (96-108); Creatinine Clr Calc Pharmacy 58.8; Estimated Glomerular Filt Rate 53; Glucose Random 169 mg/dL (60-115); Magnesium 1.9 mg/dL (1.6-2.6); Sodium 135 mmol/L (135-145); Total Protein 6.3 g/dL (6.5-8.0)
[2024-02-27 11:15] LABS: Influenza A PCR NEGATIVE (Negative); Influenza B PCR NEGATIVE (Negative); Resp Syncy Virus RNA Qual PCR NEGATIVE (Negative); SARS COV2 PCR INHOUSE NEGATIVE (Negative)
--- NOTE | 2024-02-27 11:51 | PC.NURSE ---
Pt resting comfortably at this time. Pt cleaned and new bed pads applied along with purwick; Pt tolerated well. Pt denies pain at this time. VSS and Pt is sating well at 89-90% with oxymask @ 8L O2. Family at bedside.
--- NOTE | 2024-02-27 12:20 | PC.NURSE ---
Pt noted to desat into 70s, oxymask up to 15lpm with sat maintaining at 89-90% and increased WOB and decreased LOC. Dr Garcia aware. Family in discussion about plan for ?drain for plueral effusion or comfort measures. Katarina (daughter) HCP to be contacted by Dr Garcia to discuss plan as well. Plan for high flow at this time, rt at bedside for set up
--- NOTE | 2024-02-27 12:35 | PC.NURSE ---
Plan for hospice care Family remains at bedside, PRN meds ordered if needed however pt appears very comfortable at this time. Eyes closed. Lights dimmed
--- NOTE | 2024-02-27 13:12 | MHC.CM.ED ---
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 Attempted to see if patient would be able to return to [facility]. Per Dr Garcia, patient is iminently dying and will be admitted. Continue to monitor for d/c needs.
--- NOTE | 2024-02-27 13:30 | PM.IMHP ---
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 Now being sent in for hypoxia to 70% on room air, shortness of breath. Patient is poor historian. In ED patient initially placed on high-flow, however patient and family have opted for comfort measures only and plan to be admitted for comfort measures/end of life care. Review of Systems Review of Systems: Yes Unobtainable due to mental status [facility] Medical History Metastatic carcinoma to lung (~2023) Lymphadenopathy, mediastinal Bipolar disorder PAF (paroxysmal atrial fibrillation) Hypertension Pure hypercholesterolemia Diabetes mellitus Acquired hypothyroidism GERD (gastroesophageal reflux disease) COPD (chronic obstructive pulmonary disease) Gait instability Obesity (BMI 30-39.9) Anemia Allergic rhinitis High bilirubin Hx of strabismus Hx of diabetes insipidus History of vitamin D deficiency Family History Father History of cerebral hemorrhage Mother History of cerebral hemorrhage Sister Breast cancer Surgical History History of bronchoscopy Hx of colonoscopy History of eye surgery History of left breast biopsy Hx of dilation and curettage Hx of cataract surgery (~07/2017) Social History Household Members: Spouse Housing: Apartment Do you presently have visiting nurse or other home services: No Alcohol intake: never Comment: sitter at bedside Patient Tobacco Use Status: Former Tobacco user Tobacco use type: Cigarette Years Smoked: 20 Smoked in Last 30 Days: No e-Cigarette/Vaping Use: Never Used Second Hand Smoke Exposure: No Use of substances other than those prescribed or required for medical reasons: No Advance Directives: Yes Advance Directives on File: Yes Advance Directives Date on File: 08/24/20 Do you have a plan to hurt others: No Plan service: No Current occupational status: retired Cognitive needs: Yes (wheelchair) Hearing needs: No Vision needs: Yes (reading glasses) Meds Allergies Allergy/AdvReac Type Severity Reaction Status Date / Time amoxicillin [Amoxicillin] Allergy Intermediate SWELLING, Verified 02/27/24 10:17 rash Sulfa (Sulfonamide Allergy Intermediate itching & Verified 02/27/24 10:17 Antibiotics) bruising codeine [CODEINE] Allergy Unknown RASH Verified 02/27/24 10:17 dicyclomine Allergy Unknown Unknown Verified 02/27/24 10:17 lidocaine [LIDOCAINE] Allergy Unknown UNKNOWN Verified 02/27/24 10:17 lithium [LITHIUM] AdvReac Severe NEPHROGENIC Verified 02/27/24 10:17 DIABETES INSIPIDUS meclizine [Meclizine] AdvReac Intermediate INCREASES Verified 02/27/24 10:17 DIZZINESS simvastatin [SIMVASTATIN] AdvReac Intermediate MYALGIAS Verified 02/27/24 10:17 metronidazole [METRONIDAZOLE] AdvReac Mild FLU LIKE Verified 02/27/24 10:17 SYMPTOMS acyclovir AdvReac Unknown Unknown Verified 02/27/24 10:17 dulaglutide [From Trulicity] AdvReac Unknown dizziness, Verified 02/27/24 10:17 tongue swollen semaglutide [From Ozempic] AdvReac Unknown Dizziness, Verified 02/27/24 10:17 problems remembering Active Medications: Current Medications Acetaminophen (Acetaminophen 325 Mg Tablet) 650 mg PO Q4H PRN PRN Reason: Fever >/= 100, Pain, mild 1-3 Docusate Sodium (Docusate Sodium 100 Mg Capsule) 100 mg PO BEDTIME FRANCINE Glycopyrrolate (Glycopyrrolate 0.2 Mg/Ml Vial) 0.2 mg IVPUSH Q6H PRN PRN Reason: Respiratory secretions Haloperidol Lactate (Haloperidol Lactate 5 Mg/Ml Vial) 0.5 mg IVPUSH Q4H PRN PRN Reason: Delirium Morphine Sulfate (Morphine Sulfate/Ns) 100 mg in 100 mls @ 0 mls/hr IVCONT .Q0M FRANCINE; Protocol Lorazepam (Lorazepam 2 Mg/Ml Vial) 0.5 mg IVPUSH Q4H PRN PRN Reason: Myoclonic twitching/anxiety Ondansetron HCl (Ondansetron Odt 4 Mg Tab.Rapdis) 4 mg TRANSLINGU Q8H PRN PRN Reason: Nausea and Vomiting Home Medications ?Medication ?Instructions ?Recorded ?Confirmed ?Last Taken ?Type lancing device with lancets kit #1 ea 05/11/20 12/05/23 Unknown History ([employer] Gracy Lancing Device kit) buspirone 5 mg tablet 5 mg PO BID anxiety 03/01/22 01/31/24 Unknown History divalproex 500 mg tablet,extended 500 mg PO BID 03/01/22 01/31/24 Unknown History release 24 hr risperidone 2 mg tablet 2 mg PO BID 05/20/23 01/31/24 Unknown History atorvastatin 40 mg tablet 40 mg PO BEDTIME 01/20/24 01/31/24 Unknown History nystatin 100,000 unit/gram topical 1 appl topical BID PRN rash under 01/20/24 01/31/24 Unknown History powder breasts acetaminophen 325 mg tablet 650 mg PO Q4H PRN pin 01/31/24 01/31/24 Unknown History (Tylenol) acetaminophen 650 mg rectal 650 mg TN Q4H PRN Fever Or Pain 01/31/24 01/31/24 Unknown History suppository bisacodyl 10 mg rectal suppository 10 mg TN DAILY PRN Constipation 01/31/24 01/31/24 Unknown History insulin glargine 100 unit/mL (3 24 unit subcut BEDTIME 01/31/24 01/31/24 Unknown History mL) subcutaneous pen (Lantus Solostar U-100 Insulin) metoprolol succinate 25 mg 25 mg PO BID 01/31/24 01/31/24 Unknown History tablet,extended release 24 hr naloxone 4 mg/actuation nasal spray 4 mg intranasal Q3M PRN Opiate 01/31/24 01/31/24 Unknown History Reversal sennosides 8.6 mg tablet (senna) 17.2 mg PO BID 01/31/24 01/31/24 Unknown History sodium phosphates 19 gram-7 118 ml TN ONCE PRN Constipation 01/31/24 01/31/24 Unknown History gram/118 mL enema (Fleet Enema) tramadol 50 mg tablet 50 mg PO Q8H PRN Pain 01/31/24 01/31/24 Unknown History Physical Exam Vital Signs and Narrative: Vital Signs: Last Vital Signs Temp 98.4 F 02/27/24 10:18 Pulse 88 02/27/24 12:34 Resp 18 02/27/24 12:34 BP 114/56 L 02/27/24 12:34 Pulse Ox 94 02/27/24 12:34 O2 Del Method High Flow Nasal C annula 02/27/24 12:34 O2 Flow Rate 50 02/27/24 12:34 BMI result Body Mass Index 38.4 General: AO X 3, dyspneic Resp: diminished bilateral, accessory muscles used CVS: S1,S2,RRR GI: soft, non tender, non distended Results Labs 02/27/24 10:28 02/27/24 10:28 Labs: Laboratory Results - last 24 hr 02/27/24 02/27/24 02/27/24 10:27 10:28 10:29 MCV 102.3 H MCH 32.7 MCHC 32.0 RDW 15.2 Plt Count 174 MPV 8.7 L Immature Gran % (Auto) Cancelled Neut % (Auto) Cancelled Lymph % (Auto) Cancelled Ector % (Auto) Cancelled Eos % (Auto) Cancelled Baso % (Auto) Cancelled Lymph # (Auto) Cancelled Ector # (Auto) Cancelled Eos # (Auto) Cancelled Baso # (Auto) Cancelled Abs Immat Gran (auto) Cancelled Absolute Neuts (auto) Cancelled Absolute Nucleated RBC 0.110 H Nucleated RBC % (auto) 1.4 H Neutrophils % (Manual) 64 Band Neutrophils % 6 H Lymphocytes % (Manual) 11 L Monocytes % (Manual) 5 Eosinophils % (Manual) 1 Metamyelocytes % 9 Myelocytes % 4 Abs Neuts (Manual) 5.4 Lymphocytes # (Manual) 0.8 L Monocytes # (Manual) 0.4 Eosinophils # (Manual) 0.1 Metamyelocytes # 0.7 Myelocytes # 0.3 Nucleated RBCs 1 H Platelet Estimate NORMAL Plt Morphology Comment NORMAL RBC Morphology NOTED Basophilic Stippling 1+ (0-2) Macrocytosis 1+ (5-14) Jaleesa Cells 1+ (0-2) VBG pH VBG pCO2 VBG pO2 VBG HCO3 VBG O2 Saturation VBG Base Excess Anion Gap 15 Estim Creat Clear Calc 58.8 Estimated GFR 53 Random Glucose 169 H Lactic Acid 1.1 Calcium 9.5 Magnesium 1.9 Total Bilirubin 0.4 Direct Bilirubin 0.1 AST 35 H ALT 15 Alkaline Phosphatase 70 Troponin I High Sens < 2.7 C-Reactive Protein 2.41 H B-Natriuretic Peptide 76 Total Protein 6.3 L Albumin 3.1 L Procalcitonin 0.20 Valproic Acid 40.8 L Influenza Type A (PCR) NEGATIVE Influenza Type B (PCR) NEGATIVE RSV RNA Qual (PCR) NEGATIVE SARS-CoV-2 RNA (RT-PCR) NEGATIVE 02/27/24 10:34 MCV MCH MCHC RDW Plt Count MPV Immature Gran % (Auto) Neut % (Auto) Lymph % (Auto) Ector % (Auto) Eos % (Auto) Baso % (Auto) Lymph # (Auto) Ector # (Auto) Eos # (Auto) Baso # (Auto) Abs Immat Gran (auto) Absolute Neuts (auto) Absolute Nucleated RBC Nucleated RBC % (auto) Neutrophils % (Manual) Band Neutrophils % Lymphocytes % (Manual) Monocytes % (Manual) Eosinophils % (Manual) Metamyelocytes % Myelocytes % Abs Neuts (Manual) Lymphocytes # (Manual) Monocytes # (Manual) Eosinophils # (Manual) Metamyelocytes # Myelocytes # Nucleated RBCs Platelet Estimate Plt Morphology Comment RBC Morphology Basophilic Stippling Macrocytosis Jaleesa Cells VBG pH 7.44 H VBG pCO2 57 VBG pO2 38 VBG HCO3 39 H VBG O2 Saturation 63.0 VBG Base Excess 12.7 Anion Gap Estim Creat Clear Calc Estimated GFR Random Glucose Lactic Acid Calcium Magnesium Total Bilirubin Direct Bilirubin AST ALT Alkaline Phosphatase Troponin I High Sens C-Reactive Protein B-Natriuretic Peptide Total Protein Albumin Procalcitonin Valproic Acid Influenza Type A (PCR) Influenza Type B (PCR) RSV RNA Qual (PCR) SARS-CoV-2 RNA (RT-PCR) Imaging Radiologist's Impressions: Impressions Chest X-Ray 02/27/24 10:16 IMPRESSION: 1. Interval opacification of the right mid and lower lung field suggesting a moderate to large pleural effusion with subjacent atelectasis. 2. Interval removal of endotracheal tube. 3. Mild vascular prominence. 4. Left basilar atelectasis. 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, paroxysmal atrial fibrillation, hyperlipidemia, diabetes, hypothyroidism, COPD, bipolar presented with hypoxia Acute on chronic hypoxic respiratory failure in patient with COPD, small-cell lung cancer with mediastinal and liver Mets Comfort measures only Morphine for work of breathing Chronic medical conditions include Hypothyroid, diabetes, hyperlipidemia, paroxysmal atrial fibrillation, bipolar Will hold off on any disease directed medications Quality Stroke Does the patient have a stroke diagnosis?: No VTE Prior VTE?: No VTE Risk Level:: Medical - moderate - high VTE Device Contraindication: Treatment Not Indicated VTE Drug Contraindication: Treatment Not Indicated
--- NOTE | 2024-02-27 13:32 | HE.PHANOTE ---
RE: med rec Patient is [employer], per Dr. Garcia no med rec needed
[2024-02-27] MEDS: Morphine Sulfate/NS 100 MG/100 ML PLAST..BAG IVCONT (14:13)
--- NOTE | 2024-02-27 14:24 | PC.NURSE ---
Morphine drip started at 2mg/hr. New family arrives, Dr. Garcia and Jh from Respiratory at bedside to speak with family all together. VSS
--- NOTE | 2024-02-27 14:54 | PC.NURSE ---
Call placed to switchboard for request for [facility]. Advised Pt will be going to room 375.
--- NOTE | 2024-02-27 15:18 | PC.NURSE ---
Daughter of Pt advises she has placed a call to [facility] in [place], [place] for services upon Pts passing.
--- NOTE | 2024-02-27 16:12 | PC.NURSE ---
Family and patient does not want vitals signs to be taken,no POC checks also.
[2024-02-27] MEDS: 0.9 % Sodium Chloride Flush 3 ML SYRINGE IVFLUSH (17:07)
--- NOTE | 2024-02-27 17:12 | PC.NURSE ---
Patient admitted by charge entry clerkSHILPA Awan.Family at bedside.Patient sleeping comfortably,family refused for a nurse to do any type of physical,skin assessment or repositioning at this time,Valerie RUSHING present she will check with patient and family at a later time.
--- NOTE | 2024-02-27 18:08 | PC.NURSE ---
Morphine infusing at 2 mg/hr,family at bedside
--- NOTE | 2024-02-28 00:01 | PM.EVENT ---
Event Note Date of Service: 02/28/24 Event Note: preanalytics team lead pt expected to pass. at 11.55 pm. On final exam no pulse, no lung sounds, pupils dilated and fixed, no gag, no response to painful stimuli.. Family at bedside Time Spent With Patient Time: Total time managing care of this patient today ____ minutes.
--- NOTE | 2024-02-28 01:13 | PC.NURSE ---
Assumed care for this patient 02/27/24 at 1900. Patient TIER AND DETONATOR, awake, labored respiratory rate, family at bedside requesting to increase morphine drip. At 1946 per order protocol dose increased from 2 to 4 mg/hr. After a short while patient became more relaxed, family still present. At 23:55 patient with family around, pronounced by a night physician.Nursing ground crew supervisor aware. HAY called at 0021 ,02/28/24. Family took all personal belongings.
--- NOTE | 2024-02-28 06:57 | PM.DDS ---
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 02/14/2024 for acute hypoxia and COPD exacerbation and pneumonia at that time decision was made not to pursue medical treatment for her cancer, she was discharged to care home facility. Now being sent in for hypoxia to 70% on room air, shortness of breath. Patient is poor historian. In ED patient initially placed on high-flow, however patient and family have opted for comfort measures only and plan to be admitted for comfort measures/end of life care. hospital course: Admitted for acute on chronic hypoxic respiratory failure in a patient with COPD, metastatic small-cell lung cancer, due to poor prognosis and patient's wishes patient was made comfort measures only. Was given morphine for work of breathing. Patient at 23:55. Chronic medical conditions included hypothyroid, diabetes, hyperlipidemia, paroxysmal atrial fibrillation, bipolar disease. Additional Data Attending physician: Nelson To MD
== END 2024-02-27 23:55 | disposition expired | DRG 951 ==
LOC: HO.ED 12:25 → HO.EDOVER 13:31 → HO.S3 14:40
PROVIDERS: Admitting Provider Internal Medicine; Emergency Provider Emergency Medicine; PCP Internal Medicine; Visit Provider Internal Medicine
DX: Z51.5 Encounter for palliative care (principal); J96.21 Acute and chronic respiratory failure with hypoxia; C78.7 Secondary malignant neoplasm of liver and intrahepatic bile duct; C78.1 Secondary malignant neoplasm of mediastinum; J90 Pleural effusion, not elsewhere classified; I48.0 Paroxysmal atrial fibrillation; E11.9 Type 2 diabetes mellitus without complications; F31.9 Bipolar disorder, unspecified; E78.5 Hyperlipidemia, unspecified; E03.9 Hypothyroidism, unspecified; Z20.822 Contact with and (suspected) exposure to COVID-19; Z87.891 Personal history of nicotine dependence; Z79.4 Long term (current) use of insulin; Z79.01 Long term (current) use of anticoagulants; Z79.890 Hormone replacement therapy; Z79.899 Other long term (current) drug therapy
CPT/HCPCS: 0241U; 71045; 80048; 80076; 80164; 82803; 83605; 83735; 83880; 84145; 84484; 85007; 85027; 86140; 93005; 94640; 96365; 96366; 96375; 99285; J2270; J2919

== ENCOUNTER → 2024-02-27 13:29 | Outpatient (BNV) | payer MEDICARE, SELFPAY | PROVIDERS: Admitting Provider Internal Medicine; Emergency Provider Emergency Medicine; PCP Internal Medicine; Visit Provider Internal Medicine | DX: C34.90 Malignant neoplasm of unspecified part of unspecified bronchus or lung (principal); Z51.5 Encounter for palliative care | CPT/HCPCS: 99236; 99499 ==